=== PATIENT | male | born 1940 | race Caucasian/White ===

== ENCOUNTER 2022-01-07 15:39 | Emergency (ER) | payer OTHER, MEDICARE, SELFPAY ==
--- NOTE | ~2022-01-07 | XR_ITS ---
EXAMINATION: XR FOOT, LEFT CLINICAL INFORMATION: Infection. Injury. COMPARISON: None TECHNIQUE: AP, lateral, and oblique views of the left foot. FINDINGS: No fracture. No dislocation. No focal bone lesion or abnormal periosteal reaction. No radiographic evidence for osteomyelitis. 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 Mild degenerative change of the first metatarsal phalangeal joint mild spur of the metatarsal head and the adjacent plantar ossicles. Small posterior calcaneal spur at the insertion of Achilles tendon. Soft tissue calcifications in the foot suggesting patient's diabetic. XR/XR foot LT min 3V IMPRESSION: 1. No acute abnormality. 2. No radiographic evidence for osteomyelitis.
[2022-01-07 16:34] VITALS: BP 156/69; PULSE 67; RESP 17; TEMP 36.7; O2SAT 98; BMI 30.7
--- NOTE | 2022-01-07 17:54 | ED_ITS ---
HPI - Extremity Problem General Chief complaint: Extremity Problem Stated complaint: infected toe Time Seen by Provider: 01/07/22 17:38 Source: patient Mode of arrival: ambulatory Limitations: no limitations History of Present Illness HPI Narrative: 82 yold male with pmh of Diabetes presents to the ED for left big toe redness after trauma. patient states 3 days ago he banged his big toe on an object in his house. patient states there was slight bleeding from under the nail. Patient than states since than redness of left toe and warmth. will story. patient states his glucose has been under control. Patient denies any other physical complaints. Related Data Previous Rx's Medication Instructions Recorded cephalexin 500 mg capsule 500 mg PO QID 7 Days #28 cap 01/07/22 doxycycline hyclate 100 mg tablet 100 mg PO BID 7 Days #14 tab 01/07/22 Allergies Allergy/AdvReac Type Severity Reaction Status Date / Time No Known Drug Allergies Allergy Unknown NONE Verified 01/07/22 17:29 Review of Systems Review of Systems: left big toe redness. Yes all other systems are reviewed and are negative [facility] Social History Social History Advance Directives: No Advance Directives Information Provided: No Physical Exam Vital Signs: Vital Signs: Last Vital Signs Temp 98.1 F 01/07/22 16:34 Pulse 67 01/07/22 16:34 Resp 17 01/07/22 16:34 BP 156/69 H 01/07/22 16:34 Pulse Ox 98 01/07/22 16:34 BMI result Body Mass Index 30.7 Const: General: cooperative, healthy appearing, comfortable, no acute distress, well developed, alert, awake and Physically active Or ientation/consciousness: oriented to time and patient oriented x3 HEENT: Head: Yes normal to inspection, Yes No palpable skull fracture present, Yes normocephalic, Yes atraumatic and No abrasion Eyes: General: appearance normal, both eyes and all related structures Neck: Neck: Yes normal visual inspection, Yes full ROM, Yes no lymphadenopathy, Yes no meningeal signs, Yes trachea midline, Yes supple, No anterior neck swelling and No tender Chest: Chest palpation & inspection: normal inspection of the chest and normal palpation of entire chest wall Resp: Effort & Inspection: normal respiratory effort and able to speak in complete sentences Cardio: Jugular venous distension: no JVD Heart sounds: S1 normal heart sound present and S2 normal heart sound present GI: Inspection: Yes normal to inspection and No abdominal wall ecchymosis Palpation (GI): Soft to palpation, not firm, nontender, no guarding and not rigid : General: No CVA tenderness and Yes no CVA tenderness Back/Spine/Pelvis: Back: no CVA tenderness, No CVA tenderness and No back tenderness Skin: General skin exam: no rashes or lesions noted and elasticity normal Neuro: General: oriented to time, patient oriented x3, gait normal, no meningeal signs and CN's II-XI intact bilaterally Cranial nerves: Yes CN's II-XII intact bilaterally Extrem: General: Yes normal to inspection and Yes full ROM Ankle/foot/toe images: 1. Positive for redness and warmth. negative for any pus discharge, foul odor, or open wonud. 2. dried up blood. no active bleeding. Pedal pulses intact. motor, neuro, and vascular exam of left lower extremity intact. Rest of foot and left lower extremity is normal Psych: Appearance: grossly normal, well kempt and not disheveled Course Course Course Narrative: Patient sent for foor xray. Reevaluation(s) Reevaluation #1: Xray negative for osteomyleitis. Vital signs are stable. Will not remove nail due to patient's history of Diabetes. This can cause more harm. No signs of nail bed injury on physical exam. 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 Time: 18:07 MDM - Extremity (Nontraumatic) MDM Narrative Medical decision making narrative: cellulitis toe Discharge Plan Discharge Clinical Impression: Cellulitis Patient Disposition: Home, Self-Care Instructions: Cellulitis (ED) Additional Instructions: You will need antibiotics for toe infection. Return to the ED immeidatley for worsening redness, pus discharge, foul odor, fever, red streaks, foot swelling, leg swelling, calf pain, chils, new foot wounds or any other concerning symptoms. Please follow up [facility] PCP and Case Advocate. Prescriptions: New cephalexin 500 mg capsule 500 mg PO QID 7 Days Qty: 28 0RF doxycycline hyclate 100 mg tablet 100 mg PO BID 7 Days Qty: 14 0RF Interventions: ED Discharge Assessment Last Done: 01/07/22 18:27 Discharge Date/Time: 01/07/22 18:29 Print Language: Greenlandic
== END 2022-01-07 18:29 | disposition home or self-care (01) ==
PROVIDERS: Emergency Provider Internal Medicine
DX: L03.032 Cellulitis of left toe (principal); M79.675 Pain in left toe(s); E11.9 Type 2 diabetes mellitus without complications
CPT/HCPCS: 73630; 99283

== ENCOUNTER 2024-07-02 14:12 | Emergency (ER) | payer OTHER, SELFPAY ==
--- NOTE | ~2024-07-02 | XR_ITS ---
EXAMINATION: XR CHEST CLINICAL INFORMATION: Coughing COMPARISON: Chest x-ray August 07, 2013 TECHNIQUE: Frontal view of the chest was obtained. FINDINGS: Cardiac silhouette is normal in size. Patient is status post CABG. The lungs are well aerated. There is no lobar consolidation. No pleural effusion or pneumothorax. XR/XR chest 1V IMPRESSION: No acute pulmonary pathology. Electronically signed by: Matthew Samuels MD 07/02/2024 03:46 PM EDT
--- NOTE | 2024-07-02 14:17 | ECG_ITS ---
Test Reason : WEAKNESS Blood Pressure : / mmHG Vent. Rate : 063 BPM Atrial Rate : 063 BPM P-R Int : 208 ms QRS Dur : 110 ms QT Int : 462 ms P-R-T Axes : 076 -37 050 degrees QTc Int : 472 ms Normal sinus rhythm Left axis deviation Septal infarct , age undetermined Abnormal ECG When compared with ECG of 07-AUG-2013 21:08, Vent. rate has decreased BY 33 BPM Septal infarct is now Present Referred By: Kade Camarillo Electronically Signed By:CRISTY ADAME
--- NOTE | 2024-07-02 14:25 | ED_ITS ---
HPI - SOB/Dyspnea General Chief Complaint: Dyspnea Stated Complaint: FLU SX,WEAK,COUGH,CHILLS,DIARRHEA,LIZ UE/LE SWELL Time Seen by Provider: 07/02/24 14:17 Source: patient and EMS Mode of arrival: EMS Limitations: no limitations History of Present Illness ED Provider: DR. Camarillo HPI Narrative: 84-year-old male brought in by ambulance for SOB, difficulty breathing for 4-5 days, constant coughing with no sputum can not sleep at night because of the coughing, generalized body ache, no fever, no chills, no old records available in our hospital patient confirm diabetes as the only past medical history. Patient was chronic bilateral lower extremity swelling was seen 1 time for cellulitis. Related Data Previous Rx's ?Medication ?Instructions ?Recorded cephalexin 500 mg capsule 500 mg PO QID 7 days #28 caps 01/07/22 doxycycline hyclate 100 mg tablet 100 mg PO BID 7 days #14 tabs 01/07/22 albuterol sulfate 90 mcg/actuation 2 puff inhalation Q6H PRN 07/02/24 aerosol inhaler shortness of breath or wheezing #8.5 grams doxycycline hyclate 100 mg tablet 100 mg PO BID #14 tabs 07/02/24 guaifenesin 200 mg/5 mL oral liquid 200 mg (5 mL) PO Q4H PRN cough 07/02/24 #118 mL prednisone 20 mg tablet 20 mg PO BID #10 tabs 07/02/24 Allergies Allergy/AdvReac Type Severity Reaction Status Date / Time No Known Drug Allergies Allergy Unknown NONE Verified 07/02/24 14:36 Review of Systems 2 Review of Systems: all other systems are reviewed and are negative Constitutional: Reports as per HPI and Reports no additional constitutional complaints Eyes: Reports as per HPI and Reports no additional eye complaints Reports system reviewed and no additional complaints, except as documented Cardiovascular: Reports as per HPI and Reports no additional cardiovascular complaints Respiratory: Reports as per HPI and Reports no additional respiratory complaints Gastrointestinal: Reports as per HPI and Reports no additional gastrointestinal complaints Genitourinary: Reports no additional female genitourinary complaints Musculoskeletal: Reports no additional musculoskeletal complaints Skin/Breast: Reports system reviewed and no additional complaints, except as docu Psychiatric: Reports no additional psychiatric complaints Endocrine: Reports no additional endocrine complaints Hematologic/Lymphatic: Reports no additional hematologic/lymphatic complaints Allergic/Immunologic: Reports no additional allergic/immunologic complaints Reports system reviewed and no additional complaints, except as documented and Reports Abnormal speech present [facility] Social History Social History Smoked in Last 30 Days: No Use of substances other than those prescribed or required for medical reasons: No Advance Directives: No Advance Directives Information Provided: Yes Physical Exam 2 Vital Signs: Vital Signs: Last Vital Signs Temp 98.6 F 07/02/24 16:03 Pulse 60 07/02/24 16:03 Resp 18 07/02/24 16:03 BP 129/64 07/02/24 16:03 Pulse Ox 97 07/02/24 16:03 O2 Del Method Room Air 07/02/24 16:03 BMI result Body Mass Index 35.8 Vital signs have been reviewed and appear to be correct. Blood pressure elevated. Heart rate normal. Respiratory rate normal. Temperature normal. Oxygen saturation normal. Appearance: Alert. Oriented X3. No acute distress. Head: Normal external exam. Normocephalic. Atraumatic. No Ahn signs noted. No raccoon eyes noted Eyes: PERRLA. EOMI. Conjunctiva and sclera normal. Eyelids normal. ENT: TM's Normal. Pharynx normal. Uvula midline. Moist mucous membranes. No trismus noted. No drooling noted. No muffled voice noted. Neck: Normal inspection. Neck supple. FROM. No adenopathy. Thyroid Normal. No meningeal signs. No neck mass noted. CVS: Normal heart rate and rhythm. Heart sound normal. No murmurs noted. Pulses normal throughout. Respiratory: No respiratory distress. Painless inspiration. Breath sounds normal. bilateral diffuse expiratory wheezing with prolonged expiration.Chest nontender. No accessory muscle usage noted or decreased air movement noted. Abdomen: Soft and nontender. Bowel sounds normal in all 4 quadrants. No distention noted. No organomegaly noted. No visible injury noted. Back: No CVA tenderness. Full range of motion noted. Skin: Skin warm and dry. Normal skin color. Normal skin turgor. No rashes/lesions/lacerations noted. Extremities: No lower extremity edema. Extremities exhibit normal range of motion. Extremities nontender. Neuro: Oriented X 3. Cranial nerve exam: II-XII are grossly intact No motor deficit. No sensory deficit. Reflexes normal. Course Reevaluation(s) Reevaluation #1: patient feels better vital signs stable, unremarkable workup today, symptoms is indicating acute bronchitis will discharge the patient on doxycycline, prednisone, albuterol and coughing medication. Time: 18:41 Medications Administered Generic Name Dose Route Start Last Admin Trade Name Freq PRN Reason Stop Dose Admin Guaifenesin/Codeine Phosphate 10 ml 07/02/24 14:23 07/02/24 14:54 Guaifen/Codeine Sf 200/20/10ml 10 Ml Liquid PO 10 ml Q4H PRN Administration Cough Discontinued Medications Generic Name Dose Route Start Last Admin Trade Name Freq PRN Reason Stop Dose Admin Albuterol/Ipratropium 3 ml 07/02/24 14:40 07/02/24 14:41 Albuterol/Iprat 2.5/0.5mg 3 Ml Ampul.Neb INHALE 07/02/24 14:41 3 ml ONCE ONE Administration Sodium Chloride 1,000 mls @ 999 mls/hr 07/02/24 14:17 07/02/24 16:58 Ns IV 07/02/24 15:17 Infused .Q1H1M ONE Infusion Ceftriaxone Sodium 1 gm/ 50 mls @ 100 mls/hr 07/02/24 14:24 07/02/24 15:22 Sodium Chloride IV 07/02/24 14:53 Infused ONCE ONE Infusion Sodium Chloride 1,000 mls @ 250 mls/hr 07/02/24 14:24 07/02/24 14:53 Ns IV 07/02/24 18:23 Not Given .Q4H ONE Methylprednisolone Sodium Succinate 125 mg 07/02/24 14:23 07/02/24 14:49 Methylprednisolone Sod Succ 125 Mg/2 Ml Vial IVPUSH 07/02/24 14:24 125 mg ONCE ONE Administration Medical Decision Making Differential Diagnosis Differential Diagnoses: The differential diagnosis associated with the presentation includes ( Pneumonia, pneumothorax, pleural effusion, electrolyte derangement, CHF, ACS, severe anemia, bronchitis, upper respiratory viral infection.) Admission/Observation Consideration of admission/observation: Escalation of care including admission/observation considered Lab Data MDM Lab Attestation statement: I reviewed the patient's lab results. 07/02/24 14:46 07/02/24 15:25 Labs: Lab Results 07/02/24 07/02/24 07/02/24 Range/Units 14:46 14:51 15:25 WBC 10.7 (4.8-10.8) X10*3/uL RBC 5.23 (4.60-5.80) X10*6/uL Hgb 13.9 L (14.0-18.0) g/dl Hct 42.2 (42.0-52.0) % MCV 80.7 (80.0-98.0) fL MCH 26.6 L (27.0-33.0) pg MCHC 32.9 (31.0-36.0) g/dl RDW 14.1 (11.0-16.0) % Plt Count 231 (160-400) X10*3/uL MPV 10.1 (9.4-12.4) fL Immature Gran % (Auto) 0.2 (0.0-0.4) % Neut % (Auto) 71.0 (45-73) % Lymph % (Auto) 15.4 L (20-40) % [place] % (Auto) 8.1 (2-11) % Eos % (Auto) 4.6 H (0-4) % Baso % (Auto) 0.7 (0-2) % Lymph # (Auto) 1.7 (1.2-4.9) X10*3/uL [place] # (Auto) 0.9 (0.1-1.2) X10*3/uL Eos # (Auto) 0.5 H (0.0-0.4) X10*3/uL Baso # (Auto) 0.1 (0.0-0.2) X10*3/uL Abs Immat Gran (auto) 0.02 (0.00-0.03) X10*3/uL Absolute Neuts (auto) 7.6 (2.0-8.3) x10*3/uL Absolute Nucleated RBC 0.000 (0.0-0.012) X10*3/uL Nucleated RBC % (auto) 0.0 (0.0-0.2) /100WBC Sodium 140 (135-145) mmol/L Potassium 4.4 (3.3-5.1) mmol/L Chloride 106 (96-108) mmol/L Carbon Dioxide 23 (22-29) mmol/L Anion Gap 15 (12-20) BUN 26 H (9-16) mg/dL Creatinine 1.53 H (0.5-1.4) mg/dL Estim Creat Clear Calc 44.7 Estimated GFR 44 Random Glucose 139 H (60-115) mg/dL Lactic Acid 0.7 (0.5-2.0) mmol/L Calcium 9.0 (8.4-10.2) mg/dL Total Bilirubin 0.5 (0.0-1.0) mg/dL Direct Bilirubin 0.2 (0.0-0.5) mg/dL AST 20 (5-37) U/L ALT 25 (0-40) U/L Alkaline Phosphatase 87 (39-117) U/L Troponin I High Sens 14.1 (<3.5-35.0) ng/L B-Natriuretic Peptide 395 H (<100) pg/mL Total Protein 7.0 (6.5-8.0) g/dL Albumin 3.9 (3.5-5.0) g/dL Lipase 7 L (8-78) U/L Urine Color Yellow Urine Appearance Clear Urine pH 7.0 (5.0-9.0) Ur Specific [place] 1.010 (1.005-1.025) Urine Protein Trace (Neg-Trace) mg/dL Urine Glucose (UA) Negative (Negative) mg/dL Urine Ketones Negative (Negative) mg/dL Urine Blood Negative (Negative) Urine Nitrite Negative (Negative) Ur Leukocyte Esterase Negative (Negative) Influenza Type A (PCR) NEGATIVE (Negative) Influenza Type B (PCR) NEGATIVE (Negative) RSV RNA Qual (PCR) NEGATIVE (Negative) SARS-CoV-2 RNA (RT-PCR) NEGATIVE (Negative) Independent Interpretation I performed an independent interpretation of an: Plain X-Ray ( Chest:no acute pulmonary disease) Radiology Impression Discussion of test interpretation with radiology: I have reviewed the radiologist's reading. Discharge Plan Discharge Clinical Impression: Bronchitis Patient Disposition: Home, Self-Care Instructions: Acute Bronchitis (ED) Additional Instructions: follow-up with your PCP in 2-3 days. Prescriptions: New doxycycline hyclate 100 mg tablet 100 mg PO BID Qty: 14 0RF albuterol sulfate 90 mcg/actuation HFA aerosol inhaler 2 puff inhalation Q6H PRN (Reason: shortness of breath or wheezing) Qty: 8.5 0RF prednisone 20 mg tablet 20 mg PO BID Qty: 10 0RF guaifenesin 200 mg/5 mL liquid 200 mg PO Q4H PRN (Reason: cough) Qty: 118 0RF No Action cephalexin 500 mg capsule 500 mg PO QID 7 Days Qty: 28 0RF doxycycline hyclate 100 mg tablet 100 mg PO BID 7 Days Qty: 14 0RF Print Language: Kuwaiti
[2024-07-02 14:32] VITALS: BP 147/64; BP 160/85; PULSE 63; PULSE 66; RESP 24; TEMP 36.9; O2SAT 96; BMI 35.8
[2024-07-02 14:39] VITALS: PULSE 86; RESP 18; O2SAT 95
[2024-07-02] MEDS: Albuterol/Iprat 2.5/0.5MG 3 ML AMPUL.NEB INHALE (14:41)
[2024-07-02] MEDS: cefTRIAXone sodium 1 GM in 0.9 % Sodium Chloride 50 ML IV (14:49)
[2024-07-02] MEDS: methylPREDNISolone Sod Succ 125 MG/2 ML VIAL IVPUSH (14:49)
[2024-07-02] MEDS: 0.9 % Sodium Chloride 1,000 ML 999 ML IV (14:52)
[2024-07-02] MEDS: guaiFEN/Codeine SF 200/20/10ML 10 ML LIQUID PO (14:54)
[2024-07-02 14:55] LABS: MANUAL DIFF FLAG NO
[2024-07-02 14:56] LABS: Basophils Absolute Auto 0.1 X10*3/uL (0.0-0.2); Basophils Percent Auto 0.7 % (0-2); Eosinophils Absolute Auto 0.5 X10*3/uL (0.0-0.4); Eosinophils Percent Auto 4.6 % (0-4); Hematocrit 42.2 % (42.0-52.0); Hemoglobin 13.9 g/dl (14.0-18.0); Imm Gran Abs Auto 0.02 X10*3/uL (0.00-0.03); Imm Gran Pct Auto 0.2 % (0.0-0.4); Lymphocytes Absolute Auto 1.7 X10*3/uL (1.2-4.9); Lymphocytes Percent Auto 15.4 % (20-40); Mean Corpuscular HGB Conc 32.9 g/dl (31.0-36.0); Mean Corpuscular Hemoglobin 26.6 pg (27.0-33.0); Mean Corpuscular Volume 80.7 fL (80.0-98.0); Mean Platelet Volume 10.1 fL (9.4-12.4); Monocytes Absolute Auto 0.9 X10*3/uL (0.1-1.2); Monocytes Percent Auto 8.1 % (2-11); Neutrophils Absolute Auto 7.6 x10*3/uL (2.0-8.3); Platelet Count 231 X10*3/uL (160-400); Red Blood Count 5.23 X10*6/uL (4.60-5.80); Red Cell Distribution Width 14.1 % (11.0-16.0); White Blood Count 10.7 X10*3/uL (4.8-10.8)
--- NOTE | 2024-07-02 14:56 | PC.NURSE ---
pt aox4. coming to ED from home after visiting nurse came and found him unwell, short of breath, weak with flu like symptoms which he reports have been going on for 3 days. Pt has bilateral wounds on his lower legs. Dressing removed by this RN for assessment. Pt tachypnic upon arrival, wheezing, with persistent wet sounding cough that is difficult for the pt to suppress. PRN cough medicine given per NOV. RT on scene to give breathing treatment. Pt RA spO2 has been good 96+% His hands are swollen. +3 pitting edema in feet and lower legs. Pt has hx diabetes. IV inserted (20g left AC) labs and blood cultures drawn. Fluds and ABX started.
[2024-07-02 15:03] LABS: Appearance Urine Clear; Color Urine Yellow; Glucose Urine UA Negative (Negative); Leukocyte Esterase Urine Negative (Negative); Nitrite Urine Negative (Negative); Urine Blood Negative (Negative); Urine Ketones Negative (Negative); Urine Protein Trace mg/dL (Neg-Trace)
[2024-07-02 15:07] LABS: Lactic Acid 0.7 mmol/L (0.5-2.0)
[2024-07-02 15:11] VITALS: RESP 24
[2024-07-02 15:17] LABS: B Type Natriuretic Peptide 395 pg/mL (<100)
[2024-07-02 15:50] LABS: Troponin-I High Sensitivity 14.1 ng/L (<3.5-35.0)
[2024-07-02 16:02] LABS: Alanine Aminotransferase 25 U/L (0-40); Albumin Level 3.9 g/dL (3.5-5.0); Alkaline Phosphatase 87 U/L (39-117); Anion Gap 15 (12-20); Aspartate Amino Transferase 20 U/L (5-37); Bilirubin Direct 0.2 mg/dL (0.0-0.5); Bilirubin Total 0.5 mg/dL (0.0-1.0); Blood Urea Nitrogen 26 mg/dL (9-16); Carbon Dioxide 23 mmol/L (22-29); Chloride 106 mmol/L (96-108); Creatinine Clr Calc Pharmacy 44.7; Estimated Glomerular Filt Rate 44; Glucose Random 139 mg/dL (60-115); Lipase 7 U/L (8-78); Potassium 4.4 mmol/L (3.3-5.1); Sodium 140 mmol/L (135-145)
--- NOTE | 2024-07-02 16:02 | PC.NURSE ---
pt sleeping, cough under control.
[2024-07-02 16:03] VITALS: BP 129/64; PULSE 60; RESP 18; TEMP 37; O2SAT 97
[2024-07-02 16:04] LABS: Influenza A PCR NEGATIVE (Negative); Influenza B PCR NEGATIVE (Negative); Resp Syncy Virus RNA Qual PCR NEGATIVE (Negative); SARS COV2 PCR INHOUSE NEGATIVE (Negative)
[2024-07-02 18:48] VITALS: BP 142/67; PULSE 72; RESP 22; TEMP 36.8; O2SAT 91
[2024-07-02 19:34] VITALS: BP 142/67; PULSE 72; RESP 22; TEMP 36.8; O2SAT 91
== END 2024-07-02 19:47 | disposition home or self-care (01) ==
PROVIDERS: Emergency Provider Emergency Medicine
DX: J20.9 Acute bronchitis, unspecified (principal); Z03.818 Encounter for observation for suspected exposure to other biological agents ruled out; R05.9 Cough, unspecified; R06.02 Shortness of breath
CPT/HCPCS: 0241U; 36415; 71045; 80048; 80076; 81003; 83605; 83690; 83880; 84484; 85025; 87040; 93005; 94640; 96361; 96365; 96375; 99284; 99285; J0696; J2919

== ENCOUNTER 2024-07-04 00:46 | Inpatient (IN) | payer OTHER, SELFPAY ==
[2024-07-04] VITALS (11 sets, daily range): BP systolic 112–176; BP diastolic 41–84; PULSE 68–93; RESP 18–30; TEMP 36.9–37.4; O2SAT 92–99; BMI 33.7
--- NOTE | ~2024-07-04 | XR_ITS ---
EXAMINATION: XR CHEST CLINICAL INFORMATION: Congestive heart failure? COMPARISON: Chest radiograph 07/02/2024. TECHNIQUE: Frontal view of the chest was obtained. FINDINGS: Multiple and fractured median sternotomy wires. Moderate aortic calcific atherosclerosis. Normal heart size. No effusions or pneumothoraces. Normal pattern of pulmonary vasculature. No focal pulmonary consolidation. XR/XR chest 1V IMPRESSION: *No acute cardiopulmonary abnormalities. No evidence of active pulmonary edema or pneumonia. Electronically signed by: Jasbir Gray MD 07/04/2024 02:53 AM EDT
--- NOTE | 2024-07-04 00:57 | ED_ITS ---
HPI - SOB/Dyspnea General Chief Complaint: Dyspnea Stated Complaint: SOB Time Seen by Provider: 07/04/24 00:56 Source: patient Mode of arrival: EMS Limitations: no limitations History of Present Illness ED Provider: morris LEDEZMA Narrative: Patient's history of coronary artery disease status post CABG in 2019 no known history of lung disease no history of asthma been coughing for last few days getting worse in last 2 days with increased shortness of breath came here earlier today and discharged home on inhaler which she has never used in the past unable to get the prescription filled comes here as started feeling short of breath again with wheezing prior to arrival coughing a lot mostly dry no fever no chills Related Data Previous Rx's ?Medication ?Instructions ?Recorded cephalexin 500 mg capsule 500 mg PO QID 7 days #28 caps 01/07/22 doxycycline hyclate 100 mg tablet 100 mg PO BID 7 days #14 tabs 01/07/22 albuterol sulfate 90 mcg/actuation 2 puff inhalation Q6H PRN 07/02/24 aerosol inhaler shortness of breath or wheezing #8.5 grams doxycycline hyclate 100 mg tablet 100 mg PO BID #14 tabs 07/02/24 guaifenesin 200 mg/5 mL oral liquid 200 mg (5 mL) PO Q4H PRN cough 07/02/24 #118 mL prednisone 20 mg tablet 20 mg PO BID #10 tabs 07/02/24 Allergies Allergy/AdvReac Type Severity Reaction Status Date / Time No Known Drug Allergies Allergy Unknown NONE Verified 07/04/24 00:58 Review of Systems Review of Systems: Yes all other systems are reviewed and are negative PMFSH Past Medical History Medical History Coronary artery disease Surgical History Hx of CABG Social History Social History Advance Directives: No Advance Directives Information Provided: Yes Do you have a plan to hurt others: No Plan Physical Exam Vital Signs: Vital Signs: Last Vital Signs Pulse 68 07/04/24 01:08 Resp 26 H 07/04/24 01:08 BP 143/71 H 07/04/24 01:52 Pulse Ox 99 07/04/24 00:55 O2 Del Method Nasal Cannula 07/04/24 00:55 Oxygen Flow Rate 4 07/04/24 00:55 BMI result Body Mass Index 33.7 Appearance: Alert. Oriented X3. No acute distress. Eyes: No pallor or icterus ENT: Pharynx normal. Oral Mucosa moist Neck: Normal inspection. Neck supple. CVS: Normal heart rate and rhythm. Pulses normal. Respiratory: moderate respiratory distress. Equal air entry bilateral, bilateral prolonged expiration with wheezing few rales at the bases Abdomen: Soft and nontender. Bowel sounds are present, no mass palpable, no CVA tenderness Skin: Skin warm and dry. Normal skin color. Normal skin turgor. Extremities: 2+ lower extremity edema. No calf tenderness Neuro: Oriented X 3. No motor deficit. No sensory deficit.No cerebellar signs , cranial nerves II-XII intact Medications Administered Discontinued Medications Generic Name Dose Route Start Last Admin Trade Name Freq PRN Reason Stop Dose Admin Albuterol Sulfate 5 mg/ 0 mg 07/04/24 00:57 07/04/24 01:05 Albuterol/Ipratropium 3 ml INHALE 07/04/24 00:58 1 each ONCE ONE Administration Furosemide 20 mg 07/04/24 01:28 07/04/24 01:52 Furosemide 20 Mg/2 Ml Vial IVPUSH 07/04/24 01:29 20 mg ONCE ONE Administration Protocol Medical Decision Making Medical Decision Making [facility] Narrative: Patient with bronchitis/CHF seen here earlier went home came back again as feeling more short of breath unable to sleep patient does have pedal edema slightly elevated BNP and serum creatinine likely patient has congestive heart failure will start patient on Lasix Patient's chest x-ray showed prominent bronchovascular markings? CHF will admit Differential Diagnosis Differential Diagnoses: The differential diagnosis associated with the presentation includes Bronchitis/pneumonia/CHF Admission/Observation Consideration of admission/observation: Escalation of care including admission/observation considered Consult Healthcare Provider Management of the patient was discussed with: Hospitalist Lab Data [facility] Lab Attestation statement: I reviewed the patient's lab results. Labs: Lab Results 07/04/24 Range/Units 01:50 PT 11.3 (10.9-12.4) SEC INR 1.0 (0.9-1.1) APTT 29.7 (26.0-36.8) SEC Independent Interpretation I performed an independent interpretation of an: EKG Interpretation: Sinus rhythm with first-degree heart block heart rate 72 beats per minute left axis deviation poor progression of R-wave no acute STT wave changes, no acute ischemia Discharge Plan Discharge Clinical Impression: Congestive heart failure, Acute bronchitis Patient Disposition: Admitted As Inpatient Print Language: Bots[place]an
[2024-07-04] MEDS: Albuterol Sulfate 5 MG, Albuterol/Iprat 2.5/0.5MG 3 ML 3 ML INHALE (01:05)
--- NOTE | 2024-07-04 01:30 | ECG_ITS ---
Test Reason : chf Blood Pressure : / mmHG Vent. Rate : 072 BPM Atrial Rate : 072 BPM P-R Int : 214 ms QRS Dur : 106 ms QT Int : 430 ms P-R-T Axes : -11 -39 080 degrees QTc Int : 470 ms Sinus rhythm with 1st degree A-V block Left axis deviation Anteroseptal infarct (cited on or before 02-JUL-2024) Abnormal ECG When compared with ECG of 02-JUL-2024 14:52, Questionable change in initial forces of Anterior leads Referred By: Jaime Gunn Electronically Signed By:CRISTY ADAME
[2024-07-04] MEDS: Furosemide 20 MG/2 ML VIAL IVPUSH (01:52)
[2024-07-04 02:04] LABS: Prothrombin Time 11.3 SEC (10.9-12.4)
[2024-07-04 02:07] LABS: Partial Thromboplastin Time 29.7 SEC (26.0-36.8)
[2024-07-04 02:17] LABS: B Type Natriuretic Peptide 689 pg/mL (<100)
[2024-07-04 02:18] LABS: Troponin-I High Sensitivity 18.2 ng/L (<3.5-35.0)
--- NOTE | 2024-07-04 04:26 | P.HPHOSP_ITS ---
History of Present Illness Date of Service: 07/04/24 Attending physician on admission: Sage Marcos Chief Complaint: Shorntess of breath Phil Ledbetter is 84 years old man with past medical history significant for type 2 diabetes mellitus and CAD status post CABG in 2019 presents to the emergency department via EMS due shortness of breaths has been worsening over the last couple of days. HPI was challenging to obtain as the patient is a very vague historian and very hard of hearing. He reported cough and denies chest pain. There is no fevers chills reported. He stated that he had wounds to his lower extremities due to diabetes. Did not report any acute gastrointestinal symptoms. Denies tobacco smoking and do not use home oxygen. Seems like the patient was seen in the emergency department earlier and was discharged home on inhaler but he was unable to fill the prescriptions. In the ED, he was found to have tachypnea. He was placed on 4 L/min supplemental oxygen via nasal cannula by EMS and was given a breathing treatment. There is no fever. There is no leukocytosis. Creatinine is 1.83. BNP is elevated, 689. There are no electrolyte imbalances. Viral testing for COVID-19, influenza and RSV is negative. CXR showed no acute cardiopulmonary abnormalities, pulmonary edema or pneumonia. ED tx: Lasix 20 mg IV. DuoNeb. Review of Systems Review of Systems: Yes Other (limited, pt poor historian) COUNTS INCLUDE 234 BEDS AT THE [facility] Medical History (Updated 07/04/24 @ 04:44 by Sage Marcos MD) Type 2 diabetes mellitus Coronary artery disease Surgical History Hx of CABG Social History Advance Directives: No Advance Directives Information Provided: Yes Do you have a plan to hurt others: No Plan Meds Allergies Allergy/AdvReac Type Severity Reaction Status Date / Time No Known Drug Allergies Allergy Unknown NONE Verified 07/04/24 00:58 Active Medications: Current Medications Acetaminophen (Acetaminophen 325 Mg Tablet) 975 mg PO Q6H PRN PRN Reason: Pain, Mild (Pain Scale 1-3), fever or headache Heparin Sodium (Porcine) (Heparin Sodium,Porcine 5,000 Unit/Ml Vial) 5,000 unit SUBCUT Q12H [place] Sodium Chloride (0.9 % Sodium Chloride Flush 3 Ml Syringe) 3 ml IVFLUSH QSHIFT [place] Physical Exam Vital Signs and Narrative: Vital Signs: Last Vital Signs Pulse 68 07/04/24 01:08 Resp 26 H 07/04/24 01:08 BP 143/71 H 07/04/24 01:52 Pulse Ox 99 07/04/24 00:55 O2 Del Method Nasal Cannula 07/04/24 00:55 Oxygen Flow Rate 4 07/04/24 00:55 BMI result Body Mass Index 33.7 Constitutional - Awake and Alert, No apparent distress. Pleasant. Cooperative. On nasal cannula. HEENT - PERRL, EOMI Heart - S1S2, RRR, No murmur. Lungs - Normal lung expansion, Normal respiratory effort, No respiratory distress. Tachypnea. Bilateral rhonchi. No wheezing. No crackles. Abdomen - NT / ND; +BS; No rebound or guarding Extremities - Bilateral lower extremity edema and chronic wounds. Musculoskeletal - Normal inspection, normal ROM Skin - Warm/Dry Neurological - Alert & oriented x3. No focal weakness grossly noted. Normal speech. Psychological - Appropriate affect Results Labs Labs: Laboratory Results - last 24 hr 07/04/24 01:50 PT 11.3 INR 1.0 APTT 29.7 Troponin I High Sens 18.2 B-Natriuretic Peptide 689 H Imaging Radiologist's Impressions: Impressions Chest X-Ray 07/04/24 01:42 IMPRESSION: *No acute cardiopulmonary abnormalities. No evidence of active pulmonary edema or pneumonia. Electronically signed by: Jasbir Gray MD 07/04/2024 02:53 AM EDT Assessment and Plan (1) Acute bronchitis: Qualifiers: Bronchitis organism: unspecified organism Qualified Code(s): J20.9 - Acute bronchitis, unspecified Status: Acute (2) Hypoxic respiratory failure: Qualifiers: Chronicity: acute Qualified Code(s): J96.01 - Acute respiratory failure with hypoxia Status: Acute Plan Phil Ledbetter is 84 y/o admitted with: * Hypoxic respiratory failure, suspecting acute bronchitis/upper respiratory tract infection. BNP elevated but negative CXR and lungs auscultation revealing no crackles. Admit to hospitalist service. Telemetry. Continue supplemental O2 to keep O2 sats > 90%. Continue bronchodilator therapy. Empiric IV antibiotic therapy with azithromycin. Check respiratory panel. Check echocardiogram. * Elevated creatinine, unclear if pt has underlying kindney disease. Continue to monitor. Avoid nephrotoxic agents. * Type 2 diabetes mellitus. Blood glucose checks before meals at bedtime. Insulin sliding scale. Diabetic diet. * History of CAD. S/p CABG. Patient does not recall the name of his home medications or what conditions they are for. He was only able to say he has diabetic. I do not see much on his dispense history our system. DVT prophylaxis: Heparin subQ Code status: Full Patient will need hospitalization for at least 2 midnights for hypoxic respiratory failure secondary to acute bronchitis/upper respiratory tract infection with supplemental oxygen, bronchodilator therapy and IV antibiotic therapy. Quality Stroke Does the patient have a stroke diagnosis?: No VTE Prior VTE?: No VTE Risk Level:: Medical - moderate - high VTE Device Contraindication: Treatment Not Indicated VTE Drug Contraindication: N/A - Med Ordered
[2024-07-04] MEDS: guaiFENesin DM 200/20/10 ML 10 ML SYRUP PO ×2 (04:55→12:01)
[2024-07-04 05:11] LABS: Hematocrit 39.3 % (42.0-52.0); Hemoglobin 12.9 g/dl (14.0-18.0); Mean Corpuscular HGB Conc 32.8 g/dl (31.0-36.0); Mean Corpuscular Hemoglobin 26.6 pg (27.0-33.0); Mean Platelet Volume 9.9 fL (9.4-12.4); Platelet Count 227 X10*3/uL (160-400); Red Blood Count 4.85 X10*6/uL (4.60-5.80); Red Cell Distribution Width 14.2 % (11.0-16.0); White Blood Count 16.5 X10*3/uL (4.8-10.8)
[2024-07-04 05:28] LABS: Anion Gap 13 (12-20); Blood Urea Nitrogen 33 mg/dL (9-16); Calcium 9.2 mg/dL (8.4-10.2); Carbon Dioxide 23 mmol/L (22-29); Chloride 105 mmol/L (96-108); Estimated Glomerular Filt Rate 41; Glucose Random 213 mg/dL (60-115); Magnesium 2.2 mg/dL (1.6-2.6); Potassium 3.9 mmol/L (3.3-5.1); Sodium 137 mmol/L (135-145)
--- NOTE | 2024-07-04 07:00 | CA_ITS ---
Transthoracic Echocardiogram Patient (Last, First, Middle): Phil Ledbetter, Gender: Male Date of : 1940 Age: 84 Procedure Date: 07/04/2024 Procedure Type: Transthoracic Echocardiogram Location: ER Height: 180.34 cm Weight: 109.32 kg BSA: 2.28 m2 Heart Rate: 81 bpm BP: 150 / 81 mmHg Shuttle Veneering Supervisor: Referring MD: Sage Marcos MD Production Support Analyst: Dani Salinas MD Symptoms: SOB. elevated BNP Study Quality: Adequate w contrast ECG Rhythm: Sinus Conclusions: - 1. Low normal LV ejection fraction at 50-55% with mild-to moderate LVH with grade 2 diastolic dysfunction 2. At least mildly dilated left atrium 3. Mild aortic stenosis 4. Calcific mitral stenosis can not be entirely ruled out on this study 5. Mildly dilated ascending aorta Findings Procedure Information Contrast agent, definity, is being given per protocol without apparent complications. Left Ventricle Normal left ventricular cavity size. There is mildly increased left ventricular wall thickness. The left ventricular systolic function is low normal. The visually estimated ejection fraction is between 50-55%. Spectral Doppler is indicative of a pseudonormal filling pattern. E/E prime ratio is >15, consistent with elevated filling pressures. Evidence suggests grade II (moderate) diastolic dysfunction. Right Ventricle The right ventricle was not well visualized. Atria The left atrium is mildly dilated. Interatrial shunt cannot be excluded. The right atrium was not well visualized. Aortic Valve The aortic valve was not well visualized. There is mild calcification of the aortic valve. There is mild aortic valve stenosis. The peak aortic gradient is 16 mmHg.The mean gradient is 9 mmHg. The aortic valve area is 1.96 cm2. There is trace (trivial) aortic valve regurgitation. Mitral Valve The mitral valve was not well visualized. There is moderate anterior mitral leaflet thickening. There is severe mitral annular calcification. There is no mitral valve regurgitation. Pulmonic Valve The pulmonic valve was not well visualized. Tricuspid Valve The tricuspid valve was not well visualized. Tricuspid regurgitation envelope is inadequate for calculation of right ventricular systolic pressure. Great Vessels The aorta was not well visualized. The pulmonary artery was not well visualized. There is mild dilatation of the ascending aorta measuring 3.70 cm. Venous The inferior vena cava was not well visualized. Pericardium/Pleural The pericardium was not well visualized. Prior Study Comparison No prior study available for comparison. Measurements 2D Linear Measurements IVSd: 1.46 0.6-0.9/0.6-1.0 cm LVIDd: 4.91 3.9-5.3/4.2-5.9 cm LVIDd Index: 2.15 2.4-3.2/2.2-3.1 cm/m2 LVIDs: 3.86 2.0-3.6 cm LVPWd: 1.30 0.7-1.1 cm LA Diam: 5.00 2.7-3.8/3.0-4.0 cm LAIDs Index: 2.19 1.5-2.3 cm/m2 LV Mass: 346.16 67-162/88-224 g LV Mass Index: 151.82 43-95/49-115 g/m2 LVOT Diam: 2.30 3.0+(-)1.3 cm 2D Systolic Function EF 4C: 53.60 >55% EF 2C: 44.80 >55% EF BiP: 50.10 >55% Mitral Valve MV VTI: 0.77 MV Pk Marty: 2.36 MV Mn Marty: 1.48 MV Pk Grad: 22.00 MV Mn Grad: 11.00 MV Pk E: 2.50 MV PK A: 2.10 MV Decel Time: 301.00 E/A: 1.20 E'Lateral: 4.79 E'Medial: 5.00 E/E' Med: 50.00 E/E' Lat: 52.20 PHT: 88.00 MVA PHT: 2.50 MVA Continuity: 1.09 Decel Russell: 8.31 Aortic Valve AoV Pk Marty: 1.97 AoV Mn Marty: 1.44 AoV VTI: 0.43 AoV Pk Grad: 16.00 Aov Mn Grad: 9.00 JOEL Cont.VTI: 1.96 LVOT LVOT Pk Marty: 0.84 LVOT Mn Marty: 0.62 LVOT VTI: 0.20 LVOT Pk Grad: 3.00 LVOT Mn Grad: 2.00 LVOT Diam: 2.30 LVOT Area: 4.15 Diastolic Function MV Pk E: 2.50 MV Pk A: 2.10 E/A: 1.20 E'Medial: 5.00 E/E' Med: 50.00 E' Laterial: 4.79 E/E' Lat: 52.20 Right Ventricle TAPSE (mm): 20.70 TVS' Marty: 11.00 Tricuspid Valve TR Pk Marty: 3.38 TR Pk Grad: 46.00 Great Vessels Aorta Sinus of Valsalva: 3.40 2.0-3.5 cm Ao Asc: 3.70 2.1-3.4 cm Pulmonary Valve PV Pk Marty: 0.96 Peak PV Grad: 4.00 Updated in Other Vendor System with Status of Final Dani Salinas MD electronically signed on 07/04/2024 3:49:07 PM with status of Final
[2024-07-04 07:45] LABS: Glucose, Whole Blood 197 mg/dL (60-115)
[2024-07-04] MEDS: Heparin Sodium,Porcine 5,000 UNIT/ML VIAL 5000 UNIT SUBCUT ×2 (07:53→21:29)
[2024-07-04] MEDS: Albuterol/Iprat 2.5/0.5MG 3 ML AMPUL.NEB INHALE ×4 (07:53→20:11)
[2024-07-04] MEDS: Insulin Lispro 100 UNIT/ML 3 ML VIAL SUBCUT ×3 (07:54→21:29)
[2024-07-04] MEDS: Azithromycin 500 MG in 0.9 % Sodium Chloride 250 ML 125 MG IV (07:54)
[2024-07-04] MEDS: 0.9 % Sodium Chloride Flush 3 ML SYRINGE IVFLUSH ×2 (08:42→17:04)
--- NOTE | 2024-07-04 11:14 | P.EN_ITS ---
Event Note Date of Service: 07/04/24 Event Note: Phil Ledbetter is 84 y/o admitted with: Hypoxic respiratory failure, suspecting acute bronchitis/upper respiratory tract infection. BNP elevated but negative CXR and lungs auscultation revealing no crackles. neg flu, rsv and covid Continue supplemental O2 to keep O2 sats > 90%. Continue bronchodilator therapy. Empiric IV antibiotic therapy with azithromycin. Check respiratory panel. Check echocardiogram. Elevated creatinine, unclear if pt has underlying kindney disease. Continue to monitor. Avoid nephrotoxic agents. Type 2 diabetes mellitus. Blood glucose checks before meals at bedtime. Insulin sliding scale. Diabetic diet. History of CAD S/p CABG. Patient does not recall the name of his home medications or what conditions they are for. He was only able to say he has diabetic. I do not see much on his dispense history our system. DVT prophylaxis: Heparin subQ Code status: Protective Signal Superintendent Spent With Patient Time: Total time managing care of this patient today ____ minutes.
--- NOTE | 2024-07-04 12:18 | PHA.MEDREC ---
Pharmacy Consult ? Medication Reconciliation Pharmacy has completed the medication reconciliation. list obtained from hi used to complete med rec
--- NOTE | 2024-07-04 12:52 | MHC.CM.PN ---
Met with patient in regards to discharge planning. Patient is hard of hearing at baseline. Patient lives with his sig other, ambulates with a rollator and has [facility] for medication management. Patient does not remember the nursing agency name. [facility]'s PCP [facility] through the [facility]. Patient does not remember PCP's name. [facility] IMM explained and signed. Patient states he has never been to STR and does not feel it will be needed when medically stable. Physical therapy eval for home safety may be needed. Patient is currently on oxygen but does not use it at baseline. Spoke with Susi of [facility]. Susi confirms patient's PCP is Girma LYNCH. Patient is eligible for STR/LTC through the [facility]. Susi also confirms patient receives BSW care through [facility] in [place]. Not able to locate a VNA on file for patient. T/W attempted to speak to Heather [facility] transitions of respiratory care program director. Waiting for a call back to confirm VNA agency, PCP and to see if [facility]. Continue to monitor for d/c needs.
--- NOTE | 2024-07-04 13:01 | P.CDIM_ITS ---
PROVIDER RESPONSE TEXT: To clarify, the appropriate diagnosis supported by the clinical indicators: Acute hypoxic respiratory failure QUERY TEXT: PHYSICIAN'S DOCUMENTATION REQUEST Date of Query: 07/04/2024 12:12 PM EDT Patient Name: Phil Ledbetter Admit Date: 07/04/2024 Dear Ирина Aaron JUNIOR ARCHITECT, A review of the medical record indicates additional documentation may be needed. Please review below and update the documentation accordingly. Clinical Indicators: H&P and Event note Plan: Hypoxic respiratory failure Continue supplemental O2 and keep O2 sats > 90% If possible, please further clarify the acuity of the respiratory failure within the body of the writ ten Plan: Acute hypoxic respiratory failure Acute on chronic hypoxic respiratory failure Other (explain) Clinically unable to determine (explain) Thank you, Nancie Leonardo, CCS, CDIS Use of terms such as suspected, likely, concern for, or probable (associated with a specific diagnosi s that is being evaluated, monitored, or treated as if it exists) are acceptable and can be coded in the inpatient se tting, when documented at the time of discharge. Please use your independent medical judgment in providing your response. THIS QUERY IS PART OF THE PERMANENT MEDICAL RECORD
[2024-07-04 13:41] LABS: Glucose, Whole Blood 206 mg/dL (60-115)
[2024-07-04] MEDS: Acetaminophen 325 MG TABLET 975 MG PO (13:44)
[2024-07-04 16:14] LABS: Glucose, Whole Blood 123 mg/dL (60-115)
[2024-07-04 21:13] LABS: Glucose, Whole Blood 160 mg/dL (60-115)
[2024-07-04] MEDS: Albuterol Sulfate (0.083%) 2.5 MG/3 ML VIAL.NEB INHALE (23:53)
[2024-07-05] VITALS (11 sets, daily range): BP systolic 130–168; BP diastolic 63–81; PULSE 67–93; RESP 18–26; TEMP 36.8–37.3; O2SAT 89–98
[2024-07-05] MEDS: Acetaminophen 325 MG TABLET 975 MG PO (00:02)
[2024-07-05] MEDS: guaiFENesin DM 200/20/10 ML 10 ML SYRUP PO ×4 (00:02→22:49)
[2024-07-05] MEDS: 0.9 % Sodium Chloride Flush 3 ML SYRINGE IVFLUSH ×4 (00:18→22:13)
[2024-07-05 07:00] LABS: Glucose, Whole Blood 268 mg/dL (60-115)
[2024-07-05] MEDS: Albuterol/Iprat 2.5/0.5MG 3 ML AMPUL.NEB INHALE ×4 (07:19→18:41)
[2024-07-05] MEDS: Insulin Lispro 100 UNIT/ML 3 ML VIAL SUBCUT ×4 (08:26→22:13)
[2024-07-05] MEDS: Clopidogrel Bisulfate 75 MG TABLET PO (08:26)
[2024-07-05] MEDS: Losartan Potassium 50 MG TABLET 100 MG PO (08:27)
[2024-07-05] MEDS: Furosemide 40 MG TABLET PO (08:27)
[2024-07-05] MEDS: amLODIPine Besylate 10 MG TABLET PO (08:27)
[2024-07-05] MEDS: cloNIDine HCL 0.1 MG TABLET 0.3 MG PO ×2 (08:27→20:38)
[2024-07-05] MEDS: Gabapentin 100 MG CAPSULE PO ×2 (08:27→20:38)
[2024-07-05] MEDS: Amiodarone HCL 200 MG TABLET PO (08:27)
[2024-07-05] MEDS: Heparin Sodium,Porcine 5,000 UNIT/ML VIAL 5000 UNIT SUBCUT ×2 (08:28→20:38)
[2024-07-05] MEDS: Metoprolol Succinate ER 50 MG TAB.ER.24H PO (08:28)
[2024-07-05] MEDS: Cyanocobalamin (Vitamin B-12) 1,000 MCG TABLET 1000 MCG PO (08:28)
[2024-07-05 09:02] LABS: Adenovirus PCR Not Detected (Not Detect.); Bordetella parapertussis PCR Not Detected (Not Detect.); Bordetella pertussis PCR Not Detected (Not Detect.); Chlamydia pneumoniae PCR Not Detected (Not Detect.); Coronavirus 229E PCR Not Detected (Not Detect.); Coronavirus HKU1 PCR Not Detected (Not Detect.); Coronavirus NL63 PCR Not Detected (Not Detect.); Coronavirus OC43 PCR Not Detected (Not Detect.); Human metapneumovirus PCR Not Detected (Not Detect.); Influenza A PCR Not Detected (Not Detect.); Influenza B PCR Not Detected (Not Detect.); Mycoplasma pneumoniae PCR Not Detected (Not Detect.); Parainfluenza 1 PCR Not Detected (Not Detect.); Parainfluenza 2 PCR Not Detected (Not Detect.); Parainfluenza 3 PCR Not Detected (Not Detect.); Parainfluenza 4 PCR Not Detected (Not Detect.); RSV PCR Not Detected (Not Detect.); Rhino/Enterovirus PCR Detected (Not Detect.); SARS-CoV-2 PCR Not Detected (Not Detect.)
[2024-07-05] MEDS: Azithromycin 500 MG in 0.9 % Sodium Chloride 250 ML 125 MG IV (09:02)
--- NOTE | 2024-07-05 09:36 | HO.PM.IMPN ---
Subjective Subjective Date of Service: 07/05/24 Review of Systems Follow-up enterovirus/Coronavirus Feeling better Physical Exam Vital Signs: Vital Signs: Last Vital Signs Temp 99.2 F 07/05/24 07:28 Pulse 83 07/05/24 07:28 Resp 20 07/05/24 07:28 BP 168/81 H 07/05/24 07:28 Pulse Ox 98 07/05/24 07:28 O2 Del Method Nasal Cannula 07/05/24 07:28 O2 Flow Rate 4 07/05/24 07:28 Oxygen Flow Rate 4 07/04/24 00:55 BMI result Body Mass Index 33.7 Appearing in no acute distress lung sounds are clear to auscultation heart regular rate rhythm, clear S1, S2 positive bowel sounds, abdomen is soft, nontender neuro patient is alert x3, no focal deficits Objective Data Active Medications Acetaminophen (Acetaminophen 325 Mg Tablet) 975 mg PO Q6H PRN PRN Reason: Pain, Mild (Pain Scale 1-3), fever or headache Last Admin: 07/05/24 00:02 Dose: 975 mg Documented By: MARITZA Albuterol Sulfate (Albuterol Sulfate (0.083%) 2.5 Mg/3 Ml Vial.Neb) 2.5 mg INHALE Q2H PRN PRN Reason: Shortness of Breath/Wheezing Last Admin: 07/04/24 23:53 Dose: 2.5 mg Documented By: RENÉE Albuterol/Ipratropium (Albuterol/Iprat 2.5/0.5mg 3 Ml Ampul.Neb) 3 ml INHALE RQ4H WHILE AWAKE [facility] Last Admin: 07/05/24 07:19 Dose: 3 ml Documented By: SCARLETT Amiodarone HCl (Amiodarone Hcl 200 Mg Tablet) 200 mg PO DAILY [facility] Last Admin: 07/05/24 08:27 Dose: 200 mg Documented By: ELIZA Amlodipine Besylate (Amlodipine Besylate 10 Mg Tablet) 10 mg PO DAILY [facility]; Protocol Last Admin: 07/05/24 08:27 Dose: 10 mg Documented By: ELIZA Clonidine HCl (Clonidine Hcl 0.1 Mg Tablet) 0.3 mg PO BID [facility]; Protocol Last Admin: 07/05/24 08:27 Dose: 0.3 mg Documented By: ELIZA Clopidogrel Bisulfate (Clopidogrel Bisulfate 75 Mg Tablet) 75 mg PO DAILY [facility] Last Admin: 07/05/24 08:26 Dose: 75 mg Documented By: ELIZA Cyanocobalamin (Cyanocobalamin (Vitamin B-12) 1,000 Mcg Tablet) 1,000 mcg PO DAILY [facility] Last Admin: 07/05/24 08:28 Dose: 1,000 mcg Documented By: ELIZA Furosemide (Furosemide 40 Mg Tablet) 40 mg PO DAILY [facility]; Protocol Last Admin: 07/05/24 08:27 Dose: 40 mg Documented By: ELIZA Gabapentin (Gabapentin 100 Mg Capsule) 100 mg PO BID [facility] Last Admin: 07/05/24 08:27 Dose: 100 mg Documented By: ELIZA Glucose (Glucose Gel 15 Gm Gel..Gram.) 15 gm PO Q15M PRN; Protocol PRN Reason: per Hypoglycemia Standing Ord. Guaifenesin/Dextromethorphan (Guaifenesin Dm 200/20/10 Ml 10 Ml Syrup) 10 ml PO Q6H PRN PRN Reason: Cough Last Admin: 07/05/24 06:07 Dose: 10 ml Documented By: MARIZTA Heparin Sodium (Porcine) (Heparin Sodium,Porcine 5,000 Unit/Ml Vial) 5,000 unit SUBCUT Q12H [facility] Last Admin: 07/05/24 08:28 Dose: 5,000 unit Documented By: ELIZA Dextrose (D10) 250 mls @ 750 mls/hr IV Q15M PRN; Protocol PRN Reason: per Hypoglycemia Standing Ord. Insulin Human Lispro (Insulin Lispro 100 Unit/Ml 3 Ml Vial) 0 unit SUBCUT QIDACHS [facility]; Protocol Last Admin: 07/05/24 08:26 Dose: 6 unit Documented By: ELIZA Losartan Potassium (Losartan Potassium 50 Mg Tablet) 100 mg PO DAILY [facility]; Protocol Last Admin: 07/05/24 08:27 Dose: 100 mg Documented By: ELIZA Metoprolol Succinate (Metoprolol Succinate Er 50 Mg Tab.Er.24h) 50 mg PO DAILY [facility]; Protocol Last Admin: 07/05/24 08:28 Dose: 50 mg Documented By: ELIZA Pravastatin Sodium (Pravastatin Sodium 40 Mg Tablet) 40 mg PO BEDTIME [facility] Senna (Sennosides 8.6 Mg Tablet) 8.6 mg PO DAILY PRN PRN Reason: Constipation Sodium Chloride (0.9 % Sodium Chloride Flush 3 Ml Syringe) 3 ml IVFLUSH QSHIFT [facility] Last Admin: 07/05/24 08:28 Dose: 3 ml Documented By: ELIZA Tamsulosin HCl (Tamsulosin Hcl 0.4 Mg Capsule) 0.4 mg PO BEDTIME [facility] Labs 07/04/24 05:01 07/04/24 05:01 Labs: Laboratory Results - last 24 hr 07/04/24 07/04/24 07/04/24 13:38 13:55 16:05 POC Glucose 206 H 123 H Respiratory Panel [place] See Note Adenovirus (Rapid PCR) Not Detected B.pert (TEM-PCR) Not Detected B.parapertussis DNA PCR Not Detected C. pneumoniae DNA (PCR) Not Detected Coronavirus OC43 (PCR) Not Detected Coronavirus HKU1 (PCR) Not Detected Coronavirus 229E (PCR) Not Detected Coronavirus NL63 (PCR) Not Detected Human Metapneumovir PCR Not Detected Influenza A (RT-PCR) Not Detected Influenza B (RT-PCR) Not Detected M. pneumoniae (PCR) Not Detected Parainfluenza 1 (PCR) Not Detected Parainfluenza 2 (PCR) Not Detected Parainfluenza 3 (PCR) Not Detected Parainfluenza 4 (PCR) Not Detected RSV (PCR) Not Detected Entero/Rhino (PCR) Detected A SARS-CoV-2 RNA (RT-PCR) Not Detected 07/04/24 07/05/24 21:02 06:57 POC Glucose 160 H 268 H Respiratory Panel [place] Adenovirus (Rapid PCR) B.pert (TEM-PCR) B.parapertussis DNA PCR C. pneumoniae DNA (PCR) Coronavirus OC43 (PCR) Coronavirus HKU1 (PCR) Coronavirus 229E (PCR) Coronavirus NL63 (PCR) Human Metapneumovir PCR Influenza A (RT-PCR) Influenza B (RT-PCR) M. pneumoniae (PCR) Parainfluenza 1 (PCR) Parainfluenza 2 (PCR) Parainfluenza 3 (PCR) Parainfluenza 4 (PCR) RSV (PCR) Entero/Rhino (PCR) SARS-CoV-2 RNA (RT-PCR) Assessment and Plan (1) Hypoxic respiratory failure: Status: Acute Plan Phil Ledbetter is 84 y/o admitted with: Hypoxic respiratory failure, suspecting acute bronchitis/upper respiratory tract infection. BNP elevated but negative CXR and lungs auscultation revealing no crackles. Continue supplemental O2 to keep O2 sats > 90%. Continue bronchodilator therapy. s/p IV azithromycin. Respiratory pathogen panel positive for entero/rhino virus Echocardiogram with EF of 50-55%, [id number] LVH with grade 2 diastolic dysfunction Elevated creatinine, unclear if pt has underlying kindney disease. Continue to monitor. Avoid nephrotoxic agents. Type 2 diabetes mellitus. Blood glucose checks before meals at bedtime. Insulin sliding scale. Diabetic diet. History of CAD S/p CABG. DVT prophylaxis: Heparin subQ attending Dr. Faith Code status: Full Quality Stroke Does the patient have a stroke diagnosis?: No VTE Prior VTE?: No VTE Risk Level:: Medical - moderate - high VTE Device Contraindication: Treatment Not Indicated VTE Drug Contraindication: N/A - Med Ordered
[2024-07-05 10:59] LABS: Glucose, Whole Blood 261 mg/dL (60-115)
--- NOTE | 2024-07-05 14:35 | MHC.CM.PN ---
Addendum entered by Liudmila Joseph 07/05/24 14:39: Lissetet's # is [phone]. Original Note: CM received a call from LISSETTE from [facility]/Protective services, who is involved with Patient r/t his wounds. RADHA explained that PT is recommending STR. CM will need to inform Lissette of the final dc plan.
[2024-07-05 16:40] LABS: Glucose, Whole Blood 184 mg/dL (60-115)
[2024-07-05] MEDS: Pravastatin Sodium 40 MG TABLET PO (20:38)
[2024-07-05] MEDS: Tamsulosin HCL 0.4 MG CAPSULE PO (20:38)
[2024-07-05 20:46] LABS: Glucose, Whole Blood 271 mg/dL (60-115)
[2024-07-06] VITALS (7 sets, daily range): BP systolic 119–160; BP diastolic 60–77; PULSE 60–84; RESP 18–22; TEMP 36.9–37.3; O2SAT 90–95
[2024-07-06 06:24] LABS: B Type Natriuretic Peptide 293 pg/mL (<100)
[2024-07-06 07:12] LABS: Glucose, Whole Blood 218 mg/dL (60-115)
[2024-07-06] MEDS: Albuterol/Iprat 2.5/0.5MG 3 ML AMPUL.NEB INHALE ×2 (07:45→11:11)
[2024-07-06] MEDS: Cyanocobalamin (Vitamin B-12) 1,000 MCG TABLET 1000 MCG PO (07:53)
[2024-07-06] MEDS: Gabapentin 100 MG CAPSULE PO (07:53)
[2024-07-06] MEDS: Losartan Potassium 50 MG TABLET 100 MG PO (07:53)
[2024-07-06] MEDS: Insulin Lispro 100 UNIT/ML 3 ML VIAL SUBCUT ×2 (07:53→11:37)
[2024-07-06] MEDS: Heparin Sodium,Porcine 5,000 UNIT/ML VIAL 5000 UNIT SUBCUT (07:53)
[2024-07-06] MEDS: cloNIDine HCL 0.1 MG TABLET 0.3 MG PO (07:53)
[2024-07-06] MEDS: Furosemide 40 MG TABLET PO (07:54)
[2024-07-06] MEDS: Clopidogrel Bisulfate 75 MG TABLET PO (07:54)
[2024-07-06] MEDS: Metoprolol Succinate ER 50 MG TAB.ER.24H PO (07:54)
[2024-07-06] MEDS: 0.9 % Sodium Chloride Flush 3 ML SYRINGE IVFLUSH (07:54)
[2024-07-06] MEDS: Amiodarone HCL 200 MG TABLET PO (07:54)
[2024-07-06] MEDS: amLODIPine Besylate 10 MG TABLET PO (07:54)
--- NOTE | 2024-07-06 09:21 | MHC.CM.PN ---
Per TROUBLE LOCATOR TEST DESK/Ирина, Patient is medically cleared for dc today to SNF/[facility]. [facility] with [facility] Liudmila @ [phone], Ext. [phone], requesting STR auth for STR @ [facility]. Requested information has been faxed to Liudmila @ [phone]. CM will follow.
--- NOTE | 2024-07-06 09:30 | MHC.CM.PN ---
CM met with Patient yesterday and assisted him with the completion of a HCP; Patient has named his niece/Katlin as his Agent.
[2024-07-06 10:58] LABS: Glucose, Whole Blood 276 mg/dL (60-115)
[2024-07-06] MEDS: guaiFENesin LA 600 MG TAB.ER.12H PO (11:37)
[2024-07-06] MEDS: Sennosides 8.6 MG TABLET PO (11:38)
--- NOTE | 2024-07-06 11:43 | HO.PM.IMPN ---
Subjective Subjective Date of Service: 07/06/24 Review of Systems Follow-up enterovirus/Coronavirus Feeling better Physical Exam Vital Signs: Vital Signs: Last Vital Signs Temp 98.9 F 07/06/24 11:10 Pulse 84 07/06/24 11:12 Resp 18 07/06/24 11:12 BP 119/60 07/06/24 11:10 Pulse Ox 95 07/06/24 11:10 O2 Del Method Nasal Cannula 07/06/24 11:10 O2 Flow Rate 2 07/06/24 11:10 Oxygen Flow Rate 4 07/04/24 00:55 BMI result Body Mass Index 33.7 Appearing in no acute distress lung sounds are clear to auscultation heart regular rate rhythm, clear S1, S2 positive bowel sounds, abdomen is soft, nontender neuro patient is alert x3, no focal deficits Objective Data Active Medications Acetaminophen (Acetaminophen 325 Mg Tablet) 975 mg PO Q6H PRN PRN Reason: Pain, Mild (Pain Scale 1-3), fever or headache Last Admin: 07/05/24 00:02 Dose: 975 mg Documented By: MARITZA Albuterol Sulfate (Albuterol Sulfate (0.083%) 2.5 Mg/3 Ml Vial.Neb) 2.5 mg INHALE Q2H PRN PRN Reason: Shortness of Breath/Wheezing Last Admin: 07/04/24 23:53 Dose: 2.5 mg Documented By: RENÉE Albuterol/Ipratropium (Albuterol/Iprat 2.5/0.5mg 3 Ml Ampul.Neb) 3 ml INHALE RQ4H WHILE AWAKE [facility] Last Admin: 07/06/24 11:11 Dose: 3 ml Documented By: SHELBY Amiodarone HCl (Amiodarone Hcl 200 Mg Tablet) 200 mg PO DAILY [facility] Last Admin: 07/06/24 07:54 Dose: 200 mg Documented By: VIJAYA Amlodipine Besylate (Amlodipine Besylate 10 Mg Tablet) 10 mg PO DAILY [facility]; Protocol Last Admin: 07/06/24 07:54 Dose: 10 mg Documented By: VIJAYA Clonidine HCl (Clonidine Hcl 0.1 Mg Tablet) 0.3 mg PO BID [facility]; Protocol Last Admin: 07/06/24 07:53 Dose: 0.3 mg Documented By: VIJAYA Clopidogrel Bisulfate (Clopidogrel Bisulfate 75 Mg Tablet) 75 mg PO DAILY [facility] Last Admin: 07/06/24 07:54 Dose: 75 mg Documented By: VIJAYA Cyanocobalamin (Cyanocobalamin (Vitamin B-12) 1,000 Mcg Tablet) 1,000 mcg PO DAILY [facility] Last Admin: 07/06/24 07:53 Dose: 1,000 mcg Documented By: VIJAYA Furosemide (Furosemide 40 Mg Tablet) 40 mg PO DAILY [facility]; Protocol Last Admin: 07/06/24 07:54 Dose: 40 mg Documented By: VIJAYA Gabapentin (Gabapentin 100 Mg Capsule) 100 mg PO BID [facility] Last Admin: 07/06/24 07:53 Dose: 100 mg Documented By: VIJAYA Glucose (Glucose Gel 15 Gm Gel..Gram.) 15 gm PO Q15M PRN; Protocol PRN Reason: per Hypoglycemia Standing Ord. Guaifenesin (Guaifenesin La 600 Mg Tab.Er.12h) 600 mg PO BID [facility] Last Admin: 07/06/24 11:37 Dose: 600 mg Documented By: VIJAYA Guaifenesin/Dextromethorphan (Guaifenesin Dm 200/20/10 Ml 10 Ml Syrup) 10 ml PO Q6H PRN PRN Reason: Cough Last Admin: 07/05/24 22:49 Dose: 10 ml Documented By: SHANELLE Heparin Sodium (Porcine) (Heparin Sodium,Porcine 5,000 Unit/Ml Vial) 5,000 unit SUBCUT Q12H [facility] Last Admin: 07/06/24 07:53 Dose: 5,000 unit Documented By: VIJAYA Dextrose (D10) 250 mls @ 750 mls/hr IV Q15M PRN; Protocol PRN Reason: per Hypoglycemia Standing Ord. Insulin Human Lispro (Insulin Lispro 100 Unit/Ml 3 Ml Vial) 0 unit SUBCUT QIDACHS [facility]; Protocol Last Admin: 07/06/24 11:37 Dose: 6 unit Documented By: VJIAYA Losartan Potassium (Losartan Potassium 50 Mg Tablet) 100 mg PO DAILY [facility]; Protocol Last Admin: 07/06/24 07:53 Dose: 100 mg Documented By: VIJAYA Metoprolol Succinate (Metoprolol Succinate Er 50 Mg Tab.Er.24h) 50 mg PO DAILY [facility]; Protocol Last Admin: 07/06/24 07:54 Dose: 50 mg Documented By: VIJAYA Pravastatin Sodium (Pravastatin Sodium 40 Mg Tablet) 40 mg PO BEDTIME [facility] Last Admin: 07/05/24 20:38 Dose: 40 mg Documented By: SHANELLE Senna (Sennosides 8.6 Mg Tablet) 8.6 mg PO DAILY PRN PRN Reason: Constipation Last Admin: 07/06/24 11:38 Dose: 8.6 mg Documented By: VIJAYA Sodium Chloride (0.9 % Sodium Chloride Flush 3 Ml Syringe) 3 ml IVFLUSH QSHIFT [facility] Last Admin: 07/06/24 07:54 Dose: 3 ml Documented By: VIJAYA Tamsulosin HCl (Tamsulosin Hcl 0.4 Mg Capsule) 0.4 mg PO BEDTIME [facility] Last Admin: 07/05/24 20:38 Dose: 0.4 mg Documented By: SHANELLE Labs 07/04/24 05:01 07/04/24 05:01 Labs: Laboratory Results - last 24 hr 07/05/24 07/05/24 07/06/24 16:18 20:39 05:55 POC Glucose 184 H 271 H B-Natriuretic Peptide 293 H 07/06/24 07/06/24 07:08 10:54 POC Glucose 218 H 276 H B-Natriuretic Peptide Assessment and Plan (1) Hypoxic respiratory failure: Status: Acute Plan Phil Ledbetter is 84 y/o admitted with: Hypoxic respiratory failure, suspecting acute bronchitis/upper respiratory tract infection. BNP elevated but negative CXR and lungs auscultation revealing no crackles. Continue supplemental O2 to keep O2 sats > 90%. Continue bronchodilator therapy. s/p IV azithromycin. Respiratory pathogen panel positive for entero/rhino virus Echocardiogram with EF of 50-55%, [id number] LVH with grade 2 diastolic dysfunction mucinex for dry cough Elevated creatinine, unclear if pt has underlying kindney disease. Continue to monitor. Avoid nephrotoxic agents. Type 2 diabetes mellitus. Blood glucose checks before meals at bedtime. Insulin sliding scale. Diabetic diet. History of CAD S/p CABG. DIPSO plan for STR when bed available DVT prophylaxis: Heparin subQ attending Dr. Faith Code status: Full Quality Stroke Does the patient have a stroke diagnosis?: No VTE Prior VTE?: No VTE Risk Level:: Medical - moderate - high VTE Device Contraindication: Treatment Not Indicated VTE Drug Contraindication: N/A - Med Ordered
--- NOTE | 2024-07-06 12:29 | MHC.CM.PN ---
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 [facility] been obtained and [facility] via [facility], with 1 PM meat pickler today. CM spoke with HCP/Amrita Dalal & Significant Other/ Mariann' earlier today and informed them of the dc plan. Last IMM was addressed on 07/04/2024.
--- NOTE | 2024-07-06 12:41 | P.DS_ITS ---
DS: Providers Provider Date of Service: 07/06/24 Date of admission: 07/04/24 04:20 Primary care physician: SYED Rubi Consults: 07/04/24 16:27 Consult to Wound Care Routine Reason for consultation: bilateral lower ext wnds/ reddened buttocks/coccyx DS: Diagnosis Discharge Diagnosis (1) Hypoxic respiratory failure: Status: Acute DS: Summary Hospital Course Hospital Course: History and physical as per admitting provider. Phil Ledbetter is 84 years old man with past medical history significant for type 2 diabetes mellitus and CAD status post CABG in 2019 presents to the emergency department via EMS due shortness of breaths has been worsening over the last couple of days. HPI was challenging to obtain as the patient is a very vague historian and very hard of hearing. He reported cough and denies chest pain. There is no fevers chills reported. He stated that he had wounds to his lower extremities due to diabetes. Did not report any acute gastrointestinal symptoms. Denies tobacco smoking and do not use home oxygen. Seems like the patient was seen in the emergency department earlier and was discharged home on inhaler but he was unable to fill the prescriptions. In the ED, he was found to have tachypnea. He was placed on 4 L/min supplemental oxygen via nasal cannula by EMS and was given a breathing treatment. There is no fever. There is no leukocytosis. Creatinine is 1.83. BNP is elevated, 689. There are no electrolyte imbalances. Viral testing for COVID-19, influenza and RSV is negative. CXR showed no acute cardiopulmonary abnormalities, pulmonary edema or pneumonia. ED tx: Lasix 20 mg IV. DuoNeb. 84-year-old man treated for acute hypoxic respiratory failure secondary to enterovirus/rhino virus. Treated with IV azithromycin and bronchodilator thera py. Echocardiogram showing EF of 50-55% with [id number] LVH with grade 2 diastolic dysfunction, treated with Mucinex for dry cough. He was noted to have an elevated creatinine with no known history of kidney disease but did resolve with some IV fluids. At this time patient is able to ambulate and has not had any increasing and hypoxia. Plan is for him to be transferred to short-term rehab for physical therapy. Diabetes mellitus type 2 with diabetic neuropathy. Continue home medications for diabetes and gabapentin for neuropathy History of coronary artery disease. Continue beta-oli, statin, Plavix BPH. Continue tamsulosin Hypertension. 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 Continue amiodarone Time Attestation Discharge Coordination Time (in mins): 35 Quality: Safe Use of Opioids Does Pt have an Active Cancer Diagnosis on the Problem List?: No Quality: Stroke Does the patient have a stroke diagnosis?: No Physical Exam Vital Signs: Vital Signs: Last Vital Signs Temp 98.9 F 07/06/24 11:10 Pulse 84 07/06/24 11:12 Resp 18 07/06/24 11:12 BP 119/60 07/06/24 11:10 Pulse Ox 95 07/06/24 11:10 O2 Del Method Nasal Cannula 07/06/24 11:10 O2 Flow Rate 2 07/06/24 11:10 Oxygen Flow Rate 4 07/04/24 00:55 BMI result Body Mass Index 33.7 Appearing in no acute distress head is normocephalic atraumatic eyes pupils are PERRLA sclera is anicteric mouth throat mucous membranes are intact and moist neck is supple no lymphadenopathy, no JVD noted lung sounds are clear to auscultation heart regular rate rhythm, clear S1, S2 positive bowel sounds, abdomen is soft, nontender neuro patient is alert x3, no focal deficits DS: Data Data Completed and Pending Labs on day of discharge: Laboratory Results - last 24 hr 07/05/24 07/05/24 07/06/24 16:18 20:39 05:55 POC Glucose 184 H 271 H B-Natriuretic Peptide 293 H 07/06/24 07/06/24 07:08 10:54 POC Glucose 218 H 276 H B-Natriuretic Peptide Discharge Plan Discharge Anticipated Discharge Date/Time: 07/06/24 12:35 Patient Disposition: Xfer SNF Discharge Diagnosis: Acute hypoxic respiratory failure Bronchitis PETER [facility] - [facility] Week Forrest Marin PA [Primary Care Provider] - 1 Week Discharge Medications: Continued amiodarone 200 mg Tablet 200 mg PO DAILY furosemide 40 mg Tablet 40 mg PO DAILY sennosides [senna] 8.6 mg Tablet 8.6 mg PO DAILY PRN (Reason: Constipation) pravastatin 40 mg Tablet 40 mg PO BEDTIME metoprolol succinate 50 mg Tablet Extended Release 24 Hr 50 mg PO DAILY clonidine HCl 0.3 mg Tablet 0.3 mg PO BID cyanocobalamin (vitamin B-12) 1,000 mcg Tablet 1,000 mcg PO DAILY clopidogrel 75 mg Tablet 75 mg PO DAILY tamsulosin 0.4 mg Capsule 0.4 mg PO BEDTIME amlodipine 10 mg Tablet 10 mg PO DAILY gabapentin 100 mg Capsule 100 mg PO BID losartan 100 mg Tablet 100 mg PO DAILY insulin glargine-yfgn 100 unit/mL (3 mL) Insulin Pen 40 unit SUBCUT DAILY Discharge Orders: Discharge Order (Routine); Ordered 07/06/24 Ordered By: Ирина Aaron Diet: Advance to usual diet Activity on Discharge: As tolerated Stand Alone Forms: Patient Portal Discharge page Print Language: Gambian Care Plan Goals: Transfer to short-term Care for physical therapy Health Concerns: Acute hypoxic respiratory failure Bronchitis PETER Plan of Treatment: Follow-up with primary care provider as needed Take all medications as prescribed Assessment: See discharge summary
--- NOTE | 2024-07-06 12:52 | MHC.CM.PN ---
CM left a detailed message for Protective Services ES Worker/Lissette @ [phone], informing her of the dc plan.
--- NOTE | 2024-07-06 13:14 | HO.WOUND ---
Wound Consult: Initial 84yr old?male admitted to [facility] on 07/04/24 - See progress notes and H&P for detailed history.? Wound consult placed for bilaterla lower legs and buttock wound POA.? Patient agreeable to assessment and photo documentation.? Buttock Etiology: ??MASD Present on Admission Wound Bed: mirrored redness intact and remains blanchable Drainage / Odor: None Edges: ? mirrored Ryann wound: ? intact No Induration, Fluctuance or Warmth noted Pain: mild tenderness reported Goals of Treatment: ? barrier cream and off load pressure Left posterior leg Bilateral Lower Legs Etiology: ??Venous stasis Wound Bed: carina wound bed Drainage / Odor: holloway yellow drainage noted on bed linen Edges: ? irregular Ryann wound: redness, firm edema, dry epidermal layer (Venous Dermatitis)? No Induration, Fluctuance or Warmth noted Pain: denies Goals of Treatment: ? Elevate - moist wound healing to wound beds Recommendations: 1. Turn and Reposition every 2 hours and as needed for patient comfort.? Use pillows or wedges to support off loading positions. 2. Off Load all bony prominences with use of pillows and heel boots if needed.? Apply Preventative foams where needed. ? 3. Monitor for incontinence and moisture control, use barrier creams when needed for prevention and treatment. 4. Provide adequate and supplemental nutrition.? 5. Order low air loss mattress. 6. When applicable maintain blood glucose levels per Providers order. 7. Buttock and Coccyx - Routine cleansing, apply barrier cream twice daily and PRN after episodes on incontinence. Off Load pressure with waffle cushion when up to chair. 8. Bilateral lower legs - Elevate lower legs with pillows float heels off of bed or recliner chair surface. Cleanse with PH blanced wash. Apply lotion to lower legs, cover wound beds with xeroform, dry abd pad and gauze wrap. Change daily. Re-consult wound care Nurse for wound deterioration or wound changes.
== END 2024-07-06 13:19 | disposition skilled nursing facility (03) | DRG 202 ==
LOC: HO.ED 01:55 → HO.EDOVER 04:34 → HO.IMC 14:11
PROVIDERS: Admitting Provider Internal Medicine; Emergency Provider Internal Medicine; PCP Physician Assistant; Visit Provider Nurse Practitioner Acute Care
DX: J20.9 Acute bronchitis, unspecified (principal); J96.01 Acute respiratory failure with hypoxia; I50.32 Chronic diastolic (congestive) heart failure; B97.10 Unspecified enterovirus as the cause of diseases classified elsewhere; B97.89 Other viral agents as the cause of diseases classified elsewhere; N40.0 Benign prostatic hyperplasia without lower urinary tract symptoms; I25.10 Atherosclerotic heart disease of native coronary artery without angina pectoris; E11.40 Type 2 diabetes mellitus with diabetic neuropathy, unspecified; Z20.822 Contact with and (suspected) exposure to COVID-19; Z95.2 Presence of prosthetic heart valve; Z95.1 Presence of aortocoronary bypass graft; Z79.4 Long term (current) use of insulin; Z79.02 Long term (current) use of antithrombotics/antiplatelets; Z79.899 Other long term (current) drug therapy
CPT/HCPCS: 36415; 71045; 80048; 82947; 83735; 83880; 84484; 85027; 85610; 85730; 87633; 93005; 93306; 94640; 97162; 99285; J0456; J1644; J1940; Q9957

== ENCOUNTER 2024-07-04 04:20 | Outpatient (BNV) | payer OTHER, SELFPAY | END 2024-07-04 07:00 | PROVIDERS: Admitting Provider Internal Medicine; Emergency Provider Internal Medicine; Visit Provider Internal Medicine Cardiovascular Disease | DX: I35.2 Nonrheumatic aortic (valve) stenosis with insufficiency (principal); I34.81 Nonrheumatic mitral (valve) annulus calcification; I51.89 Other ill-defined heart diseases | CPT/HCPCS: 93306 ==

== ENCOUNTER → 2024-07-04 04:20 | Outpatient (BNV) | payer OTHER, SELFPAY | PROVIDERS: Admitting Provider Internal Medicine; Emergency Provider Internal Medicine; Visit Provider Internal Medicine | DX: J96.01 Acute respiratory failure with hypoxia (principal); J20.9 Acute bronchitis, unspecified | CPT/HCPCS: 99223; 99232; 99239; 99499 ==

== ENCOUNTER 2024-08-06 09:26 | Emergency (ER) | payer OTHER, SELFPAY ==
[2024-08-06] VITALS (8 sets, daily range): BP systolic 148–194; BP diastolic 60–98; PULSE 70–80; RESP 14–20; TEMP 36.6–37.4; O2SAT 91–95; BMI 32.3
--- NOTE | ~2024-08-06 | CT_ITS ---
EXAMINATION: CT ABDOMEN PELVIS WITHOUT IV CONTRAST CLINICAL INFORMATION: right flank/ RLQ pain r/o kidney stone vs appy COMPARISON: No prior CT available for comparison. TECHNIQUE: Multidetector volumetric imaging was performed from the superior aspect of the liver through the pubic symphysis , noncontrast CT Sagittal and coronal reformatted images were obtained on the technologist's workstation. This CT examination was performed using dose optimization techniques as appropriate, variously including the following: *Automated exposure control *Adjustment of mA and/or kV according to patient size (this includes techniques or standardized protocols for targeted exams where dose is matched to indication/reason for exam; i.e. extremities or head) *Use of iterative reconstruction technique DLP: 685 mGy-cm FINDINGS: LOWER THORAX: Included lung bases are clear. HEPATOBILIARY: No focal hepatic lesions. No biliary ductal dilatation. GALLBLADDER: Gallbladder not visualized might have been removed or contracted. SPLEEN: Spleen is normal in size. PANCREAS: No focal mass or ductal dilatation. STOMACH AND GASTROINTESTINAL TRACT: There is a sliding hiatal hernia, stomach is decompressed. There is circumferential wall thickening of the distal rectum, in part due to its nondistention, cannot rule out proctitis or pathology. Refer image 81 series of 3 no evidence of bowel obstruction, mild diverticulosis of the sigmoid colon without CT evidence of acute diverticulitis. Excess amount of stool in the colon, cannot rule out constipation. ADRENALS: No adrenal nodules. KIDNEYS/URETERS: Simple cyst protruding from the posterior right renal cortex measure 5.6 cm the attenuation of its matrix is below 0, compatible with simple cysts Bosniak class I, these commonly benign, no follow-up imaging recommended. No kidney stone or hydronephrosis. URINARY BLADDER: Partially decompressed. PELVIC VISCERA: Enlarged prostate measuring up to 7 x 6.5 cm indenting on the bladder floor. PERITONEUM: No free air or fluid. LYMPH NODES: No lymphadenopathy. VASCULAR:Abdominal aorta is heavily calcified nonaneurysmal. BONES, ABDOMINAL WALL AND SOFT TISSUES: There are subtle changes of bone trabeculation of the pelvis and femurs, with few areas of radiolucencies, although could be a symmetric bone demineralization, cannot rule out the possibility of early diffuse bone metastasis, this could be assessed further with follow-up bone scan. CT/CT abdomen pelvis wo IV con IMPRESSION: 1. No CT evidence of kidney stone or hydronephrosis. No evidence of appendicitis. 2. Circumferential wall thickening of the distal rectum, in part due to its nondistention, cannot rule out proctitis or rectal pathology. Attention to correlation with follow-up outpatient colonoscopy recommended. 3. Excess amount of stool in the colon, cannot rule out constipation. 4. Diverticulosis without evidence of acute diverticulitis. 5. Enlarged prostate indenting on the bladder floor. 6. Subtle diffuse heterogeneous hypodense areas within the pelvis, sacrum, femoral bones, cannot rule out the possibility of early diffuse bone metastasis, such as from prostate CA, please correlate with patient's clinical history, consider bone scan for further investigation. Electronically signed by: Inessa Mcfarland MD 08/06/2024 11:45 AM RENNY MORAN
--- NOTE | 2024-08-06 09:36 | ECG_ITS ---
Test Reason : ABD PAIN Blood Pressure : / mmHG Vent. Rate : 070 BPM Atrial Rate : 070 BPM P-R Int : 204 ms QRS Dur : 102 ms QT Int : 436 ms P-R-T Axes : 000 -40 051 degrees QTc Int : 470 ms Normal sinus rhythm Left axis deviation Inferior infarct , age undetermined Anteroseptal infarct (cited on or before 02-JUL-2024) Abnormal ECG When compared with ECG of 04-JUL-2024 01:39, No significant change was found Referred By: Kade Camarillo Electronically Signed By:SHYANNE PRADO MD
--- NOTE | 2024-08-06 09:44 | ED.ABDPAIN ---
HPI - Abdominal Pain General Chief Complaint: Abdominal Pain Stated Complaint: ABD PAIN BACK PAIN Time Seen by Provider: 08/06/24 09:36 Source: patient and EMS Mode of arrival: EMS Limitations: no limitations History of Present Illness ED Provider: DR. Camarillo HPI narrative: 84-year-old male came in by ambulance for evaluation of right flank pain radiates down to the right lower abdominal, pain is constant start at 08:00 and woke the patient up from sleep, pain was associated with nausea but no vomiting or diarrhea, no bowel movement this morning last normal bowel movement was yesterday, no blood in the urine, no dysuria, no frequency urination, patient do not recall history of prior intra-abdominal surgery. Related Data Home Medications ?Medication ?Instructions ?Recorded ?Confirmed amiodarone 200 mg tablet 200 mg PO DAILY 07/04/24 08/06/24 amlodipine 10 mg tablet 10 mg PO DAILY 07/04/24 08/06/24 clonidine HCl 0.3 mg tablet 0.3 mg PO BID 07/04/24 08/06/24 clopidogrel 75 mg tablet 75 mg PO DAILY 07/04/24 08/06/24 cyanocobalamin (vitamin B-12) 1,000 mcg PO DAILY 07/04/24 08/06/24 1,000 mcg tablet furosemide 40 mg tablet 20 mg PO DAILY 07/04/24 08/06/24 gabapentin 100 mg capsule 100 mg PO BID 07/04/24 08/06/24 insulin glargine-yfgn 100 unit/mL 40 unit subcut DAILY 07/04/24 08/06/24 (3 mL) subcutaneous pen losartan 100 mg tablet 100 mg PO DAILY 07/04/24 08/06/24 metoprolol succinate 50 mg 50 mg PO DAILY 07/04/24 08/06/24 tablet,extended release 24 hr pravastatin 40 mg tablet 40 mg PO BEDTIME 07/04/24 08/06/24 sennosides 8.6 mg tablet (senna) 8.6 mg PO DAILY PRN Constipation 07/04/24 08/06/24 tamsulosin 0.4 mg capsule 0.4 mg PO BEDTIME 07/04/24 08/06/24 Allergies Allergy/AdvReac Type Severity Reaction Status Date / Time No Known Drug Allergies Allergy Unknown NONE Verified 07/04/24 00:58 Review of Systems Review of Systems All other systems are reviewed and are negative Constitutional: Reports as per HPI and Reports no additional constitutional complaints Eyes: Reports as per HPI and Reports no additional eye complaints Reports system reviewed and no additional complaints, except as documented Cardiovascular: Reports as per HPI and Reports no additional cardiovascular complaints Respiratory: Reports as per HPI and Reports no additional respiratory complaints Gastrointestinal: Reports as per HPI and Reports no additional gastrointestinal complaints Genitourinary: Reports no additional female genitourinary complaints Musculoskeletal: Reports no additional musculoskeletal complaints Skin/Breast: Reports system reviewed and no additional complaints, except as docu Psychiatric: Reports no additional psychiatric complaints Endocrine: Reports no additional endocrine complaints Hematologic/Lymphatic: Reports no additional hematologic/lymphatic complaints Allergic/Immunologic: Reports no additional allergic/immunologic complaints Reports system reviewed and no additional complaints, except as documented and Reports Abnormal speech present [facility] Past Medical History Medical History Congestive heart failure Type 2 diabetes mellitus Coronary artery disease Surgical History Hx of CABG Social History Social History Household Members: Unknown / Unable to assess Housing: Unknown / Unable to assess Patient Tobacco Use Status: Tobacco use Unknown Smoked in Last 30 Days: No Use of substances other than those prescribed or required for medical reasons: No Advance Directives: No Advance Directives Information Provided: No Do you have a plan to hurt others: No Plan Physical Exam ED Vital Signs: Vital Signs - 24 hr 08/06/24 09:26 08/06/24 12:42 08/06/24 14:46 Temperature 98.8 F 98.1 F 98.2 F Pulse Rate 75 78 76 Respiratory Rate 16 16 16 Blood Pressure 164/77 H 148/71 H 169/95 H Pulse Oximetry 93 91 L 94 Oxygen Delivery Method Room Air Room Air Room Air 08/06/24 15:46 Temperature 98.6 F Pulse Rate 80 Respiratory Rate 20 Blood Pressure 186/89 H Pulse Oximetry 93 Oxygen Delivery Method Room Air BMI result Body Mass Index 32.3 Vital signs have been reviewed and appear to be correct. Blood pressure elevated. Heart rate normal. Respiratory rate normal. Temperature normal. Oxygen saturation normal. Appearance: Alert. Oriented X3. No acute distress. Head: Normal external exam. Normocephalic. Atraumatic. No Ahn signs noted. No raccoon eyes noted Eyes: PERRLA. EOMI. Conjunctiva and sclera normal. Eyelids normal. ENT: TM's Normal. Pharynx normal. Uvula midline. Moist mucous membranes. No trismus noted. No drooling noted. No muffled voice noted. Neck: Normal inspection. Neck supple. FROM. No adenopathy. Thyroid Normal. No meningeal signs. No neck mass noted. CVS: Normal heart rate and rhythm. Heart sound normal. No murmurs noted. Pulses normal throughout. Respiratory: No respiratory distress. Painless inspiration. Breath sounds normal. No wheezes/rales/rhonchi noted. Chest nontender. No accessory muscle usage noted or decreased air movement noted. Abdomen: Soft and nontender. Bowel sounds normal in all 4 quadrants. No distention noted. No organomegaly noted. No visible injury noted. Back: R CVA tenderness. Full range of motion noted. Skin: Skin warm and dry. Normal skin color. Normal skin turgor. No rashes/lesions/lacerations noted. Extremities: No lower extremity edema. Extremities exhibit normal range of motion. Extremities nontender. Neuro: Oriented X 3. Cranial nerve exam: II-XII are grossly intact No motor deficit. No sensory deficit. Reflexes normal. Course Reevaluation(s) Reevaluation #1: 84-year-old male with right-sided abdominal pain, CT of the abdomen pelvis shows no hydronephrosis or ureteric stone, no evidence of appendicitis either, normal WBCs, patient's symptoms more than likely to be secondary to constipation will administer milk of magnesia and Dulcolax [place], patient feels better now will discharge to follow-up with PCP and continuous crusher operator for possible colonoscopy. Time: 14:00 Reevaluation #2: patient stated that he can not go home, will be hard for him to care for himself home alone, requesting to be admitted to the hospital since the patient do not meet criteria for hospitalization will keep the patient under physician observation get sr. social media & mobile manager /case management involved and hopefully disposition to rehab. Start physician observation now. Time: 16:26 Medical Decision Making Differential Diagnosis Differential Diagnoses: The differential diagnosis associated with the presentation includes ( Acute appendicitis, right kidney stone, pyelonephritis, UTI, colitis, diverticulitis, constipation,) Admission/Observation Consideration of admission/observation: Escalation of care including admission/observation considered Lab Data MDM Lab Attestation statement: I reviewed the patient's lab results. 08/06/24 09:57 08/06/24 10:36 Labs: Lab Results 08/06/24 08/06/24 08/06/24 Range/Units 09:57 10:36 11:05 WBC 9.1 (4.8-10.8) X10*3/uL RBC 5.34 (4.60-5.80) X10*6/uL Hgb 14.3 (14.0-18.0) g/dl Hct 42.8 (42.0-52.0) % MCV 80.1 (80.0-98.0) fL MCH 26.8 L (27.0-33.0) pg MCHC 33.4 (31.0-36.0) g/dl RDW 14.5 (11.0-16.0) % Plt Count 214 (160-400) X10*3/uL MPV 10.4 (9.4-12.4) fL Immature Gran % (Auto) 0.4 (0.0-0.4) % Neut % (Auto) 83.2 H (45-73) % Lymph % (Auto) 9.7 L (20-40) % [place] % (Auto) 4.8 (2-11) % Eos % (Auto) 1.2 (0-4) % Baso % (Auto) 0.7 (0-2) % Lymph # (Auto) 0.9 L (1.2-4.9) X10*3/uL [place] # (Auto) 0.4 (0.1-1.2) X10*3/uL Eos # (Auto) 0.1 (0.0-0.4) X10*3/uL Baso # (Auto) 0.1 (0.0-0.2) X10*3/uL Abs Immat Gran (auto) 0.04 H (0.00-0.03) X10*3/uL Absolute Neuts (auto) 7.5 (2.0-8.3) x10*3/uL Absolute Nucleated RBC 0.000 (0.0-0.012) X10*3/uL Nucleated RBC % (auto) 0.0 (0.0-0.2) /100WBC PT 10.8 L (10.9-12.4) SEC INR 0.9 (0.9-1.1) APTT 31.9 (26.0-36.8) SEC Sodium 139 (135-145) mmol/L Potassium 4.3 (3.3-5.1) mmol/L Chloride 104 (96-108) mmol/L Carbon Dioxide 24 (22-29) mmol/L Anion Gap 15 (12-20) BUN 24 H (9-16) mg/dL Creatinine 1.58 H (0.5-1.4) mg/dL Estim Creat Clear Calc 42.4 Estimated GFR 42 Random Glucose 281 H (60-115) mg/dL Calcium 9.2 (8.4-10.2) mg/dL Total Bilirubin 0.8 (0.0-1.0) mg/dL Direct Bilirubin 0.3 (0.0-0.5) mg/dL AST 21 (5-37) U/L ALT 27 (0-40) U/L Alkaline Phosphatase 99 (39-117) U/L Troponin I High Sens 15.7 (<3.5-35.0) ng/L B-Natriuretic Peptide 241 H (<100) pg/mL Total Protein 7.0 (6.5-8.0) g/dL Albumin 3.9 (3.5-5.0) g/dL Lipase 8 (8-78) U/L Urine Color Yellow Urine Appearance Clear Urine pH 6.5 (5.0-9.0) Ur Specific [place] 1.015 (1.005-1.025) Urine Protein 100 (2+) H (Neg-Trace) mg/dL Urine Glucose (UA) 500 H (Negative) mg/dL Urine Ketones Trace (Negative) mg/dL Urine Blood Negative (Negative) Urine Nitrite Negative (Negative) Ur Leukocyte Esterase Negative (Negative) Urine RBC 0-2 (0-2) /HPF Urine WBC 0-5 (0-5) /HPF Ur Squamous Epith Cells 0-2 (0-2) /HPF Urine Bacteria None Seen (None Seen) Hyaline Casts 0-2 (0-2) /LPF Independent Interpretation I performed an independent interpretation of an: CT Scan (Abdomen pelvis:. No CT evidence of kidney stone or hydronephrosis. No evidence of appendicitis. 2. Circumferential wall thickening of the distal rectum, in part due to its nondistention, cannot rule out proctitis or rectal pathology. Attention to correlation with follow-up outpatient colonosc) Radiology Impression Discussion of test interpretation with radiology: I have reviewed the radiologist's reading. Medications Administered Generic Name Dose Route Start Last Admin Trade Name Freq PRN Reason Stop Dose Admin Magnesium Hydroxide 30 ml 08/06/24 12:12 08/06/24 12:39 Milk Of Magnesia 30 Ml Oral.Susp PO 30 ml DAILY PRN Administration Constipation Discontinued Medications Generic Name Dose Route Start Last Admin Trade Name Freq PRN Reason Stop Dose Admin Bisacodyl 10 mg 08/06/24 12:12 08/06/24 12:39 Bisacodyl 10 Mg Supp.Rect IL 08/06/24 12:13 10 mg ONCE ONE Administration Sodium Chloride 1,000 mls @ 999 mls/hr 08/06/24 09:36 08/06/24 10:59 Ns IV 08/06/24 10:36 Infused .Q1H1M ONE Infusion Discharge Plan Discharge Clinical Impression: Constipation Patient Disposition: Still a Patient Instructions: Constipation (ED) Additional Instructions: Use [id number] MiraLax for a soft bowel movement. Drink plenty of fluids. Need to follow-up with GI for colonoscopy. Prescriptions: No Action amiodarone 200 mg Tablet 200 mg PO DAILY furosemide 40 mg Tablet 20 mg PO DAILY sennosides [senna] 8.6 mg Tablet 8.6 mg PO DAILY PRN (Reason: Constipation) pravastatin 40 mg Tablet 40 mg PO BEDTIME metoprolol succinate 50 mg Tablet Extended Release 24 Hr 50 mg PO DAILY clonidine HCl 0.3 mg Tablet 0.3 mg PO BID cyanocobalamin (vitamin B-12) 1,000 mcg Tablet 1,000 mcg PO DAILY clopidogrel 75 mg Tablet 75 mg PO DAILY tamsulosin 0.4 mg Capsule 0.4 mg PO BEDTIME amlodipine 10 mg Tablet 10 mg PO DAILY gabapentin 100 mg Capsule 100 mg PO BID losartan 100 mg Tablet 100 mg PO DAILY insulin glargine-yfgn 100 unit/mL (3 mL) Insulin Pen 40 unit SUBCUT DAILY Referrals: Ana Jackson MD [Physician] - Print Language: Brazilian
--- NOTE | 2024-08-06 09:57 | PC.NURSE ---
biba from home d/t right sided abd pain w/ associated lower back pain/nausea x this am that woke him up from his sleep. worsens w/ laying down. tender/distended. denies urinary sx/fever/chills. upon ED arrival - a&ox4. vss and up to date. nsr on the lunchroom monitor. pt changed into hospital attire. 20gIV placed in the left index finger - labs obtained/sent to lab. pt seen by ED provider/aware of plan of care. pt waiting to go to CT. pt aware UA is needed - urinal placed bedside for convenience. on RA w/o difficulty. no sob/wob noted. respirations even/unlabored. plan of care ongoing. call pruitt placed within reach.
[2024-08-06] MEDS: 0.9 % Sodium Chloride 1,000 ML 999 ML IV (09:58)
[2024-08-06 10:01] LABS: MANUAL DIFF FLAG NO
[2024-08-06 10:04] LABS: Basophils Absolute Auto 0.1 X10*3/uL (0.0-0.2); Basophils Percent Auto 0.7 % (0-2); Eosinophils Absolute Auto 0.1 X10*3/uL (0.0-0.4); Eosinophils Percent Auto 1.2 % (0-4); Hematocrit 42.8 % (42.0-52.0); Hemoglobin 14.3 g/dl (14.0-18.0); Imm Gran Abs Auto 0.04 X10*3/uL (0.00-0.03); Imm Gran Pct Auto 0.4 % (0.0-0.4); Lymphocytes Absolute Auto 0.9 X10*3/uL (1.2-4.9); Lymphocytes Percent Auto 9.7 % (20-40); Mean Corpuscular HGB Conc 33.4 g/dl (31.0-36.0); Mean Corpuscular Hemoglobin 26.8 pg (27.0-33.0); Mean Corpuscular Volume 80.1 fL (80.0-98.0); Mean Platelet Volume 10.4 fL (9.4-12.4); Monocytes Absolute Auto 0.4 X10*3/uL (0.1-1.2); Monocytes Percent Auto 4.8 % (2-11); Neutrophils Absolute Auto 7.5 x10*3/uL (2.0-8.3); Neutrophils Percent Auto 83.2 % (45-73); Platelet Count 214 X10*3/uL (160-400); Red Blood Count 5.34 X10*6/uL (4.60-5.80); Red Cell Distribution Width 14.5 % (11.0-16.0); White Blood Count 9.1 X10*3/uL (4.8-10.8)
[2024-08-06 10:10] LABS: INTERNATIONAL NORM RATIO 0.9 (0.9-1.1); Prothrombin Time 10.8 SEC (10.9-12.4)
[2024-08-06 10:13] LABS: Partial Thromboplastin Time 31.9 SEC (26.0-36.8)
--- NOTE | 2024-08-06 10:29 | PC.NURSE ---
pt to CT at this time.
[2024-08-06 10:55] LABS: Alanine Aminotransferase 27 U/L (0-40); Albumin Level 3.9 g/dL (3.5-5.0); Alkaline Phosphatase 99 U/L (39-117); Anion Gap 15 (12-20); Aspartate Amino Transferase 21 U/L (5-37); Bilirubin Direct 0.3 mg/dL (0.0-0.5); Bilirubin Total 0.8 mg/dL (0.0-1.0); Blood Urea Nitrogen 24 mg/dL (9-16); Calcium 9.2 mg/dL (8.4-10.2); Carbon Dioxide 24 mmol/L (22-29); Chloride 104 mmol/L (96-108); Creatinine Clr Calc Pharmacy 42.4; Estimated Glomerular Filt Rate 42; Glucose Random 281 mg/dL (60-115); Lipase 8 U/L (8-78); Potassium 4.3 mmol/L (3.3-5.1); Sodium 139 mmol/L (135-145)
[2024-08-06 11:01] LABS: B Type Natriuretic Peptide 241 pg/mL (<100)
[2024-08-06 11:02] LABS: Troponin-I High Sensitivity 15.7 ng/L (<3.5-35.0)
[2024-08-06 11:12] LABS: Appearance Urine Clear; Color Urine Yellow; Glucose Urine UA 500 mg/dL (Negative); Leukocyte Esterase Urine Negative (Negative); Nitrite Urine Negative (Negative); PH 6.5 (5.0-9.0); Specific Gravity - Urine 1.015 (1.005-1.025); UMIC TRIGGER UACC YES; Urine Blood Negative (Negative); Urine Ketones Trace mg/dL (Negative); Urine Protein 100 (2+) mg/dL (Neg-Trace)
[2024-08-06 11:14] LABS: Bacteria Urine None Seen (None Seen); Hyaline Casts Urine 0-2 /LPF (0-2); RBC Urine 0-2 /HPF (0-2); Squamous Epithelial Cell Urine 0-2 /HPF (0-2); WBC Urine 0-5 /HPF (0-5)
--- NOTE | 2024-08-06 11:42 | PC.NURSE ---
urinal utilized - UA obtained/sent to lab. pt continues to rest in no apparent distress. no episodes of n/v. no sob/wob noted. respirations even/unlabored. plan of care ongoing.
[2024-08-06] MEDS: bisacodyL 10 MG SUPP.RECT PR (12:39)
[2024-08-06] MEDS: Milk of Magnesia 30 ML ORAL.SUSP PO (12:39)
--- NOTE | 2024-08-06 12:44 | PC.NURSE ---
vss and up to date. nsr on the panel monitor. medication administered per provider order. effectiveness pending. pt turned/repositioned to promote comfort. remains on RA w/o difficulty. no sob/wob noted. respirations remain even/unlabored. plan of care ongoing. call pruitt placed within reach.
--- NOTE | 2024-08-06 15:14 | PC.NURSE ---
pt up for discharge - transportation being arranged via BLS. ETA 1700. pt notified/aware.
--- NOTE | 2024-08-06 16:13 | PC.NURSE ---
benito BALTAZAR arrived to pick pt up/be transported back home. pt refusing to be discharged at this time as he states that he is still uncomfortable s/p medication administration. provider notified/aware. provider bedside speaking w/ pt. pt reports not feeling comfortable going home while he is feeling this way as his spouse is 89 years old and will not be able to tend to his needs. pt will be admitted for observation/PT/CM. medication reconciliation completed. will administer medications as scheduled.
[2024-08-06] MEDS: amLODIPine Besylate 10 MG TABLET PO (16:34)
--- NOTE | 2024-08-06 17:09 | PHA.MEDREC ---
Pharmacy Consult ? Medication Reconciliation Pharmacy has completed the medication reconciliation, utilized list from [place].
[2024-08-06 17:20] LABS: Glucose, Whole Blood 267 mg/dL (60-115)
[2024-08-06] MEDS: Cyanocobalamin (Vitamin B-12) 1,000 MCG TABLET 1000 MCG PO (17:38)
[2024-08-06] MEDS: Furosemide 20 MG TABLET 40 MG PO (17:38)
[2024-08-06] MEDS: Insulin Glargine,Hum.rec.anlog 100 UNIT/ML 10 ML VIAL 40 UNIT SUBCUT (17:39)
[2024-08-06] MEDS: Amiodarone HCL 200 MG TABLET PO (17:39)
[2024-08-06] MEDS: Metoprolol Succinate ER 50 MG TAB.ER.24H PO (17:39)
[2024-08-06] MEDS: Clopidogrel Bisulfate 75 MG TABLET PO (17:39)
[2024-08-06] MEDS: Losartan Potassium 50 MG TABLET 100 MG PO (17:39)
--- NOTE | 2024-08-06 17:48 | PC.NURSE ---
vss and up to date. pt's BP seems to be trending downward post BP medication administration. the rest of scheduled medication has been administered per provider order. respirations remain even/unlabored. no sob/wob noted. respirations even/unlabored. pt pending PT/CM eval. plan of care ongoing. call pruitt placed within reach.
[2024-08-06] MEDS: Gabapentin 100 MG CAPSULE PO (20:55)
[2024-08-06] MEDS: Tamsulosin HCL 0.4 MG CAPSULE PO (20:55)
[2024-08-06] MEDS: Pravastatin Sodium 40 MG TABLET PO (20:55)
[2024-08-06] MEDS: cloNIDine HCL 0.1 MG TABLET 0.3 MG PO (20:55)
[2024-08-06] MEDS: diazePAM 2 MG TABLET PO (23:42)
[2024-08-06] MEDS: Acetaminophen 325 MG TABLET 650 MG PO (23:42)
[2024-08-07 06:24] VITALS: BP 154/62; PULSE 62; RESP 18; O2SAT 97
[2024-08-07 07:20] LABS: Glucose, Whole Blood 267 mg/dL (60-115)
--- NOTE | 2024-08-07 07:25 | PC.NURSE ---
patient noted to have choked on breakfast, patient recovered quickly with coughing, suction set up at bedside, breakfast tray put aside. resp even and unlabored, patient airway intact
[2024-08-07 07:32] VITALS: BP 166/76; PULSE 62; RESP 15; O2SAT 95
[2024-08-07] MEDS: Gabapentin 100 MG CAPSULE PO ×2 (10:18→20:22)
[2024-08-07] MEDS: Amiodarone HCL 200 MG TABLET PO (10:18)
[2024-08-07] MEDS: Cyanocobalamin (Vitamin B-12) 1,000 MCG TABLET 1000 MCG PO (10:18)
[2024-08-07] MEDS: Losartan Potassium 50 MG TABLET 100 MG PO (10:18)
[2024-08-07] MEDS: Furosemide 20 MG TABLET 40 MG PO (10:19)
[2024-08-07] MEDS: Clopidogrel Bisulfate 75 MG TABLET PO (10:19)
[2024-08-07] MEDS: cloNIDine HCL 0.1 MG TABLET 0.3 MG PO ×2 (10:19→20:22)
[2024-08-07] MEDS: amLODIPine Besylate 10 MG TABLET PO (10:19)
[2024-08-07] MEDS: Metoprolol Succinate ER 50 MG TAB.ER.24H PO (10:19)
[2024-08-07] MEDS: Insulin Glargine,Hum.rec.anlog 100 UNIT/ML 10 ML VIAL 40 UNIT SUBCUT (10:19)
--- NOTE | 2024-08-07 10:25 | PC.NURSE ---
patient sitting u in bed, had speech and swallow eval done, recommended advanced / chopped diet, think liquids ok. medicated patient per NOV, took meds whole with water. patient given snack as requested
--- NOTE | 2024-08-07 11:48 | MHC.CM.PN ---
CM RECEIVED ED CONSULT, MET WITH PT AT BEDSIDE IN ED. PT RESIDES WITH HIS S/O. USES A WALKER FOR MAJOR MOBILITY. [facility] +HCP ON [facility], HAS PCP AT THE ME BUT CANNOT RECALL HIS NAME. Howie[facility] IS PENDING FOR DC DISPOSITION. PT STATES HE WILL DECIDE WHAT HE WANTS TO DO WHEN HE IS READY. CM WILL CONTINUE TO FOLLOW FOR FINAL PLAN.
--- NOTE | 2024-08-07 13:14 | PC.NURSE ---
patient in sitting up position, given lunch tray that was changed to chopped/advance diet
--- NOTE | 2024-08-07 16:30 | PC.NURSE ---
special procedure tech got patient up to commode patient had large bowel movement. patient bedding changed. patient requested condom cath, which was applied by tech.
--- NOTE | 2024-08-07 18:53 | PC.NURSE ---
patient ate dinner tray with no issues. patient resting quietly now
--- NOTE | 2024-08-07 19:30 | PC.NURSE ---
Phone provided to call girlfriend as requested. Assistance provided to call Mariann at [phone].
[2024-08-07 20:22] VITALS: BP 146/65
[2024-08-07] MEDS: Tamsulosin HCL 0.4 MG CAPSULE PO (20:22)
[2024-08-07] MEDS: Pravastatin Sodium 40 MG TABLET PO (20:25)
[2024-08-07 22:38] VITALS: BP 148/65; PULSE 50; RESP 16; TEMP 36.6; O2SAT 95
[2024-08-08] VITALS (8 sets, daily range): BP systolic 121–153; BP diastolic 56–88; PULSE 48–59; RESP 14–18; TEMP 36.4–37.5; O2SAT 93–96
[2024-08-08] MEDS: Acetaminophen 325 MG TABLET 975 MG PO (05:02)
--- NOTE | 2024-08-08 05:07 | MHC.EDTECH ---
600ml voided and emptied from cath bag
--- NOTE | 2024-08-08 05:08 | PC.NURSE ---
Pt awoke reporting low back pain, 5/10. Medicated with acetaminophen. Pt tolerated well PO. Heat pack applied to low back pain. Monitoring is ongoing .
[2024-08-08 07:12] LABS: Glucose, Whole Blood 202 mg/dL (60-115)
[2024-08-08] MEDS: amLODIPine Besylate 10 MG TABLET PO (09:01)
[2024-08-08] MEDS: Losartan Potassium 50 MG TABLET 100 MG PO (09:01)
[2024-08-08] MEDS: cloNIDine HCL 0.1 MG TABLET 0.3 MG PO ×2 (09:02→21:35)
[2024-08-08] MEDS: Amiodarone HCL 200 MG TABLET PO (09:02)
[2024-08-08] MEDS: Clopidogrel Bisulfate 75 MG TABLET PO (09:02)
[2024-08-08] MEDS: Metoprolol Succinate ER 50 MG TAB.ER.24H PO (09:02)
[2024-08-08] MEDS: Gabapentin 100 MG CAPSULE PO ×2 (09:03→21:35)
[2024-08-08] MEDS: Insulin Glargine,Hum.rec.anlog 100 UNIT/ML 10 ML VIAL 40 UNIT SUBCUT (09:03)
[2024-08-08] MEDS: Cyanocobalamin (Vitamin B-12) 1,000 MCG TABLET 1000 MCG PO (09:03)
[2024-08-08] MEDS: Furosemide 20 MG TABLET 40 MG PO (09:03)
--- NOTE | 2024-08-08 09:10 | PC.NURSE ---
this nurse took over care for patient at 7am, patient a&ox3, vitals stable, poc obtained was 202, pt previously had a swallow eval done- pt states that he previously ate too fast which is why he choked from not chewing his food well, speech is currently at bedside doing a new speech eval. pts respiratory rate equal/non labored, lungs diminished/clear, nasal swab performed, pt to go to overflow, call pruitt within reach, will continue plan of care.
[2024-08-08 09:36] LABS: COVID-19 Test Negative (Negative); IDNOW Serial# 152EDE1D
--- NOTE | 2024-08-08 10:21 | MHC.CM.ED ---
Patient remains in ER overflow. Physical therapy eval completed. Short term rehab is recommended. PCP is Forrest Meek. Met with patient in regards to discharge planning. Patient was d/c'd from [facility] [place] on 08/02. Patient agreeable to returning. Referral made via [facility]. Continue to monitor for d/c needs.
--- NOTE | 2024-08-08 10:42 | MHC.SL.SWA ---
Speech Pathologist Impression: Risk of Aspiration Oral Phase Dysphagia Risk of Aspiration Due to: Mild oral phase dysphagia Dysphasia Diet Status: Precautions Liquid Consistency and Strategies for Safe Swallow: Liquid Intake Recommendation: Thin Liquid Intake Strategies: Small Sips Solid Food Consistency: Dietary Recommendations: Chopped/Advanced (NDD3) Additional Modifications to Solid Foods: Patient with mild oral phase dysphagia secondary to poor dentition. Patient w/ few teeth in poor condition with spaces, reports his teeth only touch in one spot for chewing. Note slowed and prolonged period of mastication, oral residue cleared with purees/liquids. Recommend DOWNGRADE to CHOPPED/ADVANCED solids (NDD3) for ease of mastication, continue on THIN liquids, pills WHOLE with LIQUID. Strategies recommended to promote oral clearance: moisten food with sauces/gravies, avoid hard, dry, or tough to chew solids, take small bites, chew food well, alternate with sips of liquid. Oral Medication Intake: Whole with Liquid Please contact the pharmacy regarding appropriate crushable or liquid drug formulations that are available whenever modified delivery is recommended. Compensatory Strategies and Precautions to be Taken for Safe Swallow: Sitting Upright (90 deg) Double Swallow Small Bites and Sips Alternate Liquids/Solids Rate of Ingestion Change Avoid Specific Foods Supervision While Eating and Drinking for Safe Swallow: Intermittent Supervision Foods to Avoid: Hard, difficult to chew solids Swallowing Recommended Treatments: Compens. Strategy Educat. Recommendation for Speech: Inpatient Speech Therapy Comment: Pt seen for followup this morning, pt tolerating slightly downgraded diet (NDD3) with efficient use of compensatory strategies to reduce risk for dysphagia. Pt noted he ate sausage last week without chewing the bite enough and that is why he choked. Pt shows good awareness of taking his time, moistening solids when formulating bolus, alternating consistencies when swallowing and remaining upright in bed during and after meals. No overt s/s of aspriation observed this morning, RN reported no concerns with pt PO tolerance. MAILING SPECIALIST to followup once more during pt inpatient stay. Frequency/Duration: Date Range for Service Req: Timeline to reassess: Gambling Monitor Clinican/Clinical Fellow: No Supervisory Statement: I have reviewed and agree with the student/clinical fellow's documentation: N/A Speech Language Pathologist: Viridiana Crouch M.S. CCC-MAILING SPECIALIST
[2024-08-08 16:47] LABS: Glucose, Whole Blood 226 mg/dL (60-115)
--- NOTE | 2024-08-08 18:34 | PC.NURSE ---
pt has a large fluid filled blister on his left lower extrem. it is about 1/5 x 2.5 inches. ALLERGIST/IMMUNOLOGIST notified
[2024-08-08] MEDS: Tamsulosin HCL 0.4 MG CAPSULE PO (21:35)
[2024-08-08] MEDS: Pravastatin Sodium 40 MG TABLET PO (21:35)
[2024-08-09 05:14] VITALS: BP 128/84; PULSE 51; RESP 18; TEMP 36.2; O2SAT 96
[2024-08-09 07:48] LABS: Glucose, Whole Blood 142 mg/dL (60-115)
[2024-08-09] MEDS: Losartan Potassium 50 MG TABLET 100 MG PO (08:03)
[2024-08-09] MEDS: cloNIDine HCL 0.1 MG TABLET 0.3 MG PO ×2 (08:03→21:18)
[2024-08-09] MEDS: Metoprolol Succinate ER 50 MG TAB.ER.24H PO (08:03)
[2024-08-09] MEDS: Cyanocobalamin (Vitamin B-12) 1,000 MCG TABLET 1000 MCG PO (08:03)
[2024-08-09] MEDS: Furosemide 20 MG TABLET 40 MG PO (08:03)
[2024-08-09] MEDS: amLODIPine Besylate 10 MG TABLET PO (08:04)
[2024-08-09] MEDS: Clopidogrel Bisulfate 75 MG TABLET PO (08:04)
[2024-08-09] MEDS: Gabapentin 100 MG CAPSULE PO ×2 (08:04→21:18)
[2024-08-09] MEDS: Insulin Glargine,Hum.rec.anlog 100 UNIT/ML 10 ML VIAL 40 UNIT SUBCUT (08:06)
[2024-08-09] MEDS: Lidocaine 4 % Patch ADH..PATCH 1 PATCH TRANSDERMA (09:42)
[2024-08-09] MEDS: oxyCODONE HCl Immed Release 5 MG TABLET PO (09:42)
[2024-08-09] MEDS: Amiodarone HCL 200 MG TABLET PO (09:44)
[2024-08-09 11:37] VITALS: BP 122/86; PULSE 54; RESP 16; TEMP 36.4; O2SAT 94
[2024-08-09 11:50] LABS: Glucose, Whole Blood 258 mg/dL (60-115)
--- NOTE | 2024-08-09 15:54 | MHC.SL.DTX ---
Dysphagia Diet modifications: Last documented Solid diet consistencies: Regular Last documented Liquid consistency: Thin Last documented Medication Administration:Whole with Liquid Changes made to current diet?: Liquid Consistency and Strategies: Liquid Intake Recommendation: Thin Compensatory Strategies for Safe Swallow: Small Sips Compensatory Strategies for Safe Swallow(b): Sitting Upright (90 deg) Double Swallow Small Bites and Sips Alternate Liquids/Solids Rate of Ingestion Change Avoid Specific Foods Solid Food Consistency: Dietary Recommendations: Chopped/Advanced (NDD3) Additional Modifications to Solids: Pt tolerating NDD3 Solids today with Lunch. Assisted in to his recliner, but complaining of back pain seeking medication. ENGRAVER HAND SOFT METALS will continue to follow. Oral Medication Intake: Whole with Liquid Strategies and Precautions to be Taken for Safe Swallow: Sitting Upright (90 deg) Double Swallow Small Bites and Sips Alternate Liquids/Solids Rate of Ingestion Change Avoid Specific Foods Supervision While Eating and/Drinking: Intermittent Supervision Foods to Avoid: Hard, difficult to chew solids Swallowing Recommended Treatments: Compens. Strategy Educat. Recommendation for Speech: Inpatient Speech Therapy Comment: 1-2 f/u Press Operator Apprentice Clinican/Clinical Fellow: No Supervisory Statement: I have reviewed and agree with the student/clinical fellow's documentation: N/A Speech Language Pathologist: Kenji Grove M.A., CCC-ENGRAVER HAND SOFT METALS
[2024-08-09 17:01] LABS: Glucose, Whole Blood 180 mg/dL (60-115)
[2024-08-09] MEDS: Insulin Lispro 100 UNIT/ML 3 ML VIAL SUBCUT ×2 (17:14→21:18)
--- NOTE | 2024-08-09 19:14 | PC.NURSE ---
received report from previous nurse, assume care of pt at this time
[2024-08-09 20:00] VITALS: BP 149/70; PULSE 54; RESP 16; TEMP 36.8; O2SAT 93
[2024-08-09 21:18] LABS: Glucose, Whole Blood 185 mg/dL (60-115)
[2024-08-09] MEDS: Tamsulosin HCL 0.4 MG CAPSULE PO (21:18)
[2024-08-09] MEDS: Pravastatin Sodium 40 MG TABLET PO (21:18)
--- NOTE | 2024-08-09 21:39 | PC.NURSE ---
pt c/o of back pain. requests pain medication. pt has none ordered. sent Bob LYNCH a tiger text to request something for pain
[2024-08-10 06:00] VITALS: BP 159/73; PULSE 52; RESP 12; TEMP 36.4; O2SAT 94
--- NOTE | 2024-08-10 07:09 | PC.NURSE ---
report given to Jose Antonio ROSSI
[2024-08-10 07:45] LABS: Glucose, Whole Blood 83 mg/dL (60-115)
[2024-08-10] MEDS: Clopidogrel Bisulfate 75 MG TABLET PO (08:56)
[2024-08-10] MEDS: Insulin Glargine,Hum.rec.anlog 100 UNIT/ML 10 ML VIAL 40 UNIT SUBCUT (08:56)
[2024-08-10] MEDS: Amiodarone HCL 200 MG TABLET PO (08:56)
[2024-08-10] MEDS: Gabapentin 100 MG CAPSULE PO (08:56)
[2024-08-10] MEDS: amLODIPine Besylate 10 MG TABLET PO (08:56)
[2024-08-10] MEDS: cloNIDine HCL 0.1 MG TABLET 0.3 MG PO (08:56)
[2024-08-10] MEDS: Cyanocobalamin (Vitamin B-12) 1,000 MCG TABLET 1000 MCG PO (08:56)
[2024-08-10] MEDS: Furosemide 20 MG TABLET 40 MG PO (08:56)
[2024-08-10] MEDS: Losartan Potassium 50 MG TABLET 100 MG PO (08:57)
--- NOTE | 2024-08-10 09:35 | PC.NURSE ---
Addendum entered by Jose Antonio Hopper RN 08/10/24 16:40: informed facility to check POC upon arrival Addendum entered by Jose Antonio Hopper RN 08/10/24 16:36: open blister to RLE w/ redness to b/l LE's. noted. R side of abd distended. pt stated pain is not as bad as this AM Addendum entered by Jose Antonio Hopper RN 08/10/24 15:12: report given to facility Addendum entered by Jose Antonio Hopper RN 08/10/24 13:32: pt BP low, asymptomatic, md informed. will continue to monitor. two meds being held for tonight and per MD hold clonidine for SBP<100. 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 no acute complications or issues this AM during med pass and assessment
[2024-08-10] MEDS: Acetaminophen 325 MG TABLET 650 MG PO (11:22)
[2024-08-10] MEDS: Insulin Lispro 100 UNIT/ML 3 ML VIAL SUBCUT (11:27)
[2024-08-10 11:28] LABS: Glucose, Whole Blood 238 mg/dL (60-115)
--- NOTE | 2024-08-10 13:00 | MHC.SL.SWA ---
Speech Pathologist Impression: Minimal Risk of Aspiration Oral Phase Dysphagia Risk of Aspiration Due to: Hospitalization course with one episode of suspected aspiration at admission Dysphasia Diet Status: Tolerating NDD3 with thins Liquid Consistency and Strategies for Safe Swallow: Liquid Intake Recommendation: Thin Liquid Intake Strategies: Small Sips Solid Food Consistency: Dietary Recommendations: Chopped/Advanced (NDD3) Additional Modifications to Solid Foods: Patient with mild oral phase dysphagia secondary to poor dentition. Patient w/ few teeth in poor condition with spaces, reports his teeth only touch in one spot for chewing. Note slowed and prolonged period of mastication, oral residue cleared with purees/liquids. Recommend DOWNGRADE to CHOPPED/ADVANCED solids (NDD3) for ease of mastication, continue on THIN liquids, pills WHOLE with LIQUID. Strategies recommended to promote oral clearance: moisten food with sauces/gravies, avoid hard, dry, or tough to chew solids, take small bites, chew food well, alternate with sips of liquid. Oral Medication Intake: Whole with Liquid Please contact the pharmacy regarding appropriate crushable or liquid drug formulations that are available whenever modified delivery is recommended. Compensatory Strategies and Precautions to be Taken for Safe Swallow: Sitting Upright (90 deg) Double Swallow Small Bites and Sips Alternate Liquids/Solids Rate of Ingestion Change Avoid Specific Foods Supervision While Eating and Drinking for Safe Swallow: Intermittent Supervision Foods to Avoid: Hard, difficult to chew solids Swallowing Recommended Treatments: Compens. Strategy Educat. Recommendation for Speech: Inpatient Speech Therapy Comment: Pt continues to tolerate NDD3 with thins without overt s/s of aspiration, no changes made. SEAM RUBBING MACHINE OPERATOR to followup as indicated Frequency/Duration: Date Range for Service Req: Timeline to reassess: Trim Setter Helper Clinican/Clinical Fellow: No Supervisory Statement: I have reviewed and agree with the student/clinical fellow's documentation: N/A Speech Language Pathologist: Viridiana Crouch M.S., CCC-SEAM RUBBING MACHINE OPERATOR
[2024-08-10 13:16] VITALS: BP 77/47; PULSE 51; RESP 16; TEMP 36.6; O2SAT 96
[2024-08-10 14:12] VITALS: BP 96/55; PULSE 52
--- NOTE | 2024-08-10 15:13 | MHC.CM.ED ---
Patient remains in ER overflow. [facility] received insurance auth. Alert BLS booked for 6pm. Patient, Jose Antonio ROSSI and Claudia LYNCH aware. Patient is active with [facility] and will be made aware. Continue to monitor for d/c needs.
== END 2024-08-10 16:40 | disposition other institution (70) ==
PROVIDERS: Physician Assistant Medical; Emergency Provider Emergency Medicine; PCP Physician Assistant
DX: K59.00 Constipation, unspecified (principal); I50.9 Heart failure, unspecified; E11.9 Type 2 diabetes mellitus without complications; Z79.02 Long term (current) use of antithrombotics/antiplatelets; Z79.899 Other long term (current) drug therapy
CPT/HCPCS: 36415; 74176; 80048; 80076; 81001; 82947; 83690; 83880; 84484; 85025; 85610; 85730; 87635; 93005; 96360; 96361; 96374; 97162; 99285

== ENCOUNTER → 2024-08-06 09:36 | Outpatient (BNV) | payer OTHER, SELFPAY | PROVIDERS: Emergency Provider Emergency Medicine; Visit Provider Internal Medicine Cardiovascular Disease | DX: R94.31 Abnormal electrocardiogram [ECG] [EKG] (principal) | CPT/HCPCS: 93010 ==

== ENCOUNTER 2024-10-31 14:54 | Outpatient (AMB) | payer OTHER, SELFPAY ==
[2024-10-31 14:54] VITALS: BP 136/70; PULSE 91; O2SAT 95
--- NOTE | 2024-10-31 14:54 | HO.NEPHOV_ITS ---
Vital Signs 10/31/24 14:54 Weight 222 lb BP 136/70 Blood Pressure Location Lt brachial Position Sitting Pulse 91 Pulse Source Pulse Oximeter Pulse Oximetry (%) 95 Oxygen Delivery Method Room Air Intake Visit Reasons: ENP: Essential hypertension Production Bow Maker Required: No Accompanied by: Family/Other Allergies hydrochlorothiazide Allergy (Unknown, Verified 10/31/24 15:01) Unknown No Known Drug Allergies Allergy (Unknown, Verified 10/31/24 14:57) NONE Medication List - Last Reconciled 10/31/24 by Eb Sauceda MD amlodipine 10 mg PO DAILY clonidine HCl 0.3 mg PO BID clopidogrel 75 mg PO DAILY cyanocobalamin (vitamin B-12) 1,000 mcg PO DAILY furosemide 40 mg PO DAILY glucose 8 grams PO USEASDIRECTD PRN insulin glargine-yfgn 40 units subcut DAILY losartan 100 mg PO DAILY sennosides (senna) 8.6 mg PO DAILY PRN tamsulosin 0.4 mg PO BEDTIME HPI Comments Details: Kglztv-nllvz-tqwp-old man with a history of hypertension and malignant neoplasm of the prostate along with diabetes mellitus referred for evaluation of CKD. In 08/17/2024 he had a serum creatinine 1.53 with EGFR of 43 mL/minute. Today he has no specific complaints. According to caregiver he has been noncompliant with his insulin. [facility] Medical History Congestive heart failure Type 2 diabetes mellitus Coronary artery disease Surgical History Hx of CABG Social History Household Members: Unknown / Unable to assess Housing: Unknown / Unable to assess Patient Tobacco Use Status: Tobacco use Unknown Review of Systems Const Denies fever(s) and Denies weight loss Card Denies chest pain Resp Denies cough and Denies hemoptysis GI Denies abdominal pain, Denies diarrhea and Denies nausea Musc Denies back pain Neuro Denies focal weakness Physical Exam Vital Signs: Last Vital Signs Pulse 91 10/31/24 14:54 BP 136/70 10/31/24 14:54 Pulse Ox 95 10/31/24 14:54 Oxygen Delivery Method Room Air 10/31/24 14:54 Comfortable Neck supple no JVD. Lungs entry equal no rales. Heart S1-S2 heard no gallop or rub. Abdomen soft nontender. Neuro alert awake oriented. No asterixis. Extremities 1+ edema. Results Reviewed Nephrology Results: Hgb 14.3 g/dl (14.0-18.0) 08/06/24 WBC 9.1 X10*3/uL (4.8-10.8) 08/06/24 Plt Count 214 X10*3/uL (160-400) 08/06/24 Sodium 139 mmol/L (135-145) 08/06/24 Potassium 4.3 mmol/L (3.3-5.1) 08/06/24 Chloride 104 mmol/L (96-108) 08/06/24 Carbon Dioxide 24 mmol/L (22-29) 08/06/24 BUN 24 mg/dL (9-16) H 08/06/24 Creatinine 1.58 mg/dL (0.5-1.4) H 08/06/24 Calcium 9.2 mg/dL (8.4-10.2) 08/06/24 Urine Protein 100 (2+) mg/dL (Neg-Trace) H 08/06/24 Assessment & Plan Assessment & Plan (1) CKD (chronic kidney disease): Code(s): N18.9 - Chronic kidney disease, unspecified Category: Medical Plan Elderly man with a history of prostate CA diabetes mellitus hypertension with CKD. Baseline serum creatinine is unknown at this time. Serum creatinine was between 1.5 and 1.6 mg/dL back in 07/17/2024. CT scan in June did not reveal any obstruction. He had simple cyst otherwise unremarkable. Urine studies in June showed minimal proteinuria without any hematuria. Different diagnosed with chronic kidney disease would include diabetic hypertensive kidney disease. No evidence of obstruction. Glomerular nephritis/interstitial nephritis seem unlikely based on the available lab data. Recommendations Check repeat urinalysis along with a urine protein creatinine ratio. Follow renal function Obtain basic serological studies. Obtain renal ultrasonogram Goal is to maintain blood pressure less than 130/80 Continue to avoid nephrotoxic agents including NSAIDs. Encouraged him to stand low-sodium diet. Maintain hemoglobin A1c less than 7%. He would benefit from SGLT2 inhibitors. Further workup will be determined based on the outcome of the baseline investigations. Orders: Orders Comprehensive Met. Panel Today N18.9 - Chronic kidney disease, unspecified Creatinine Urine Today N18.9 - Chronic kidney disease, unspecified Parathyroid Hormone Intact Today N18.9 - Chronic kidney disease, unspecified Total Protein Urine Random Today N18.9 - Chronic kidney disease, unspecified US renal BI Today I10 - Essential (primary) hypertension, N18.9 - Chronic kidney disease, unspecified Complete Blood Count Auto Diff Today N18.9 - Chronic kidney disease, unspecified Vitamin D 25-OH Total Today N18.9 - Chronic kidney disease, unspecified UA and rflx microscopic Today N18.9 - Chronic kidney disease, unspecified Coding Level of Care Code New Pt Level 5 (76808) Diagnoses CKD (chronic kidney disease) N18.9
--- OUTSIDE RECORDS SUMMARY | 2024-10-31 16:28 | XMS_ITS ---
Author Organization [facility] [address] Address Unknown Medications Medication Dose Frequency Directions Start Date End Donovan e Acetaminophen Tablet 325 MG 2 {tbl} Give 2 tablet by eugenia th every 4 hours as needed for Mild Pain More than 3 doses in 48 hours, notify physician/advanced practice provider(CLAUDE).Do not exceed 3g/day. (standing order) 08/08/2024 Acetaminophen Tablet 325 MG 2 {tbl} Give 2 tablet by eugenia th every 6 hours as needed for Temp 100F or above Notify Physician/Advanced Practice provider. Do not exceed 3g/day 08/08/2024 Milk of Magnesia Suspension 400 MG/5ML 30 mL Give 30 ml by mout h as needed for Constipation give at bedtime if no BM in 3 days 08/08/2024 Saline Laxative Enema 1 {Dose} Insert 1 dose rectally as needed for Constipation if no result from Dulcolax within 2 hours. If no results from Saline laxative enema, call MD/advanced practice provider (CLAUDE) for further orders. 08/08/2024 Dulcolax Suppository 10 MG 1 Insert 1 suppository rectally as needed for Constipation if no result from MOM by next shift 08/08/2024 Amiodarone HCl Oral Tablet 200 MG 1 {tbl} 24 h Give 1 tablet by eugenia th one time a day for HTN 08/09/2024 Clopidogrel Bisulfate Oral Tablet 75 MG 1 {tbl} 24 h Give 1 tablet by eugenia th one time a day for CAD 08/09/2024 cloNIDine HCl Oral Tablet 0.3 MG 1 {tbl} 12 h Give 1 tablet by eugenia th two times a day for HTN 08/09/2024 amLODIPine Besylate Oral Tablet 10 MG 1 {tbl} 24 h Give 1 tablet by eugenia th one time a day for HTN 08/09/2024 Cyanocobalamin Tablet 1000 MCG 1 {tbl} 24 h Give 1 tablet by eugenia th one time a day for B-12 deficiency 08/09/2024 Gabapentin Oral Capsule 100 MG 1 {Capsule} 12 h Give 1 capsule by mouth two times a day for neuropathy 08/09/2024 Insulin Glargine Subcutaneous Solution Pen-injector 100 UNIT/ML 40 24 h Inject 40 unit subcutaneously one time a day for DM II 08/09/2024 Losartan Potassium Oral Tablet 100 MG 1 {tbl} 24 h Give 1 tablet by eugenia th one time a day for HTN 08/09/2024 Metoprolol Succinate ER Oral Tablet Extended Release 24 Hour 50 MG 1 {tbl} 24 h Give 1 tablet by eugenia th one time a day for HTN HOLD FOR SBP less than 112 and Pulse less than 60 08/09/2024 Tamsulosin HCl Oral Capsule 0.4 MG 1 {Capsule} 24 h Give 1 capsule by mouth one time a day for BPH 08/09/2024 Pravastatin Sodium Oral Tablet 40 MG 1 {tbl} 24 h Give 1 tablet by eugenia th one time a day for HLD 08/09/2024 Insta-Glucose Gel 77.4 % 1 {Dose} Give 1 dose by mouth as needed for BG less than 70, Pt arousable conscious and able to swallow Hold all diabetic medications until provider authorizes resumption. Remain with pt. Keep pt.in bed/chair for safety. Repeat blood glucose in 15 min. 08/10/2024 Insta-Glucose Gel 77.4 % 1 {Dose} Give 1 dose by mouth as needed for BG less than 70, Pt arousable conscious and able to swallow If repeat blood glucose is below 70mg/dl and pt is arousable, conscious and able to swallow. Continue to hold all diabetic medications until provider authorizes resumption. Remain with pt. Keep pt.in bed/chair for safety. 08/10/2024 Glucagon Emergency Kit 1 MG 1 mg Inject 1 mg intramuscularly as needed for BG less than 70, Not arousable conscious or able to swallow Hold all diabetic meds until provider authorizes resumption, remain with pt.and keep in bed/chair for safety. Repeat blood glucose in 15 min 08/10/2024 Glucagon Emergency Kit 1 MG 1 mg Inject 1 mg intramuscularly as needed for BG less than 70, Not arousable conscious or able to swallow If repeat blood glucose is below 70mg/dl and pt is NOT arousable, conscious or able to swallow. Continue to hold all diabetic medications until provider authorizes resumption. Remain with pt. Keep pt. in bed/chair for safety. 08/10/2024 Sennosides Oral Tablet 8.6 MG 1 {tbl} Give 1 tablet by eugenia th every 24 hours as needed for constipation 08/11/2024 Furosemide Tablet 20 MG 1 {tbl} 24 h Give 1 tablet by eugenia th one time a day for cardiac health 08/12/2024 Lidocaine External Patch 5 % Apply to Right lower back topically in the morning for pain 08/12/2024 Lidocaine External Patch Apply to remove topically at bedtime for pain 08/12/2024 Medications Administered Medication Dose Frequency Status Start Date End Date Acetaminophen Tablet 325 MG 2 {tbl} Acetaminophen Tablet 325 MG 2 {tbl} Milk of Magnesia Suspension 400 MG/5ML 30 mL 08/13/2024 Saline Laxative Enema 1 {Dose} 08/08/20 24 Dulcolax Suppository 10 MG 1 07/2024 Amiodarone HCl Oral Tablet 200 MG 1 {tbl} 24 h 08/13/2024 Clopidogrel Bisulfate Oral T ablet 75 MG 1 {tbl} 24 h 08/13/2024 cloNIDine HCl Oral Tablet 0.3 MG 1 {tbl} 12 h 08/13/2024 amLODIPine Besylate Oral Tab let 10 MG 1 {tbl} 24 h 08/13/2024 Cyanocobalamin Tablet 1000 MCG 1 {tbl} 24 h 08/13/2024 Gabapentin Oral Capsule 100 MG 1 {Capsule} 12 h 08/13/2024 Insulin Glargine Subcutaneou s Solution Pen-injector 100 UNIT/ML 40 24 h 024 Losartan Potassium Oral Tabl et 100 MG 1 {tbl} 24 h 08/13/2024 Metoprolol Succinate ER Oral Tablet Extended Release 24 Hour 50 MG 1 {tbl} 24 h 08/13/2024 Tamsulosin HCl Oral Capsule 0.4 MG 1 {Capsule} 24 h 08/13/2024 Pravastatin Sodium Oral Tabl et 40 MG 1 {tbl} 24 h 08/13/2024 Insta-Glucose Gel 77.4 % 1 {Dose} 08/10 Insta-Glucose Gel 77.4 % 1 {Dose} 08/10 Glucagon Emergency Kit 1 MG 1 mg Glucagon Emergency Kit 1 MG 1 mg Sennosides Oral Tablet 8.6 MG 1 {tbl} 08/11/2024 Furosemide Tablet 20 MG 1 {tbl} 24 h 2023 Lidocaine External Patch 5 % Refused 1 10/13/2023 Lidocaine External Patch 08/13 Problems Problem Status Start Date End Date ACUTE RESPIRATORY FAILURE WI TH HYPOXIA (Primary) (J96.01 - ICD-10-CM) RESOLVED 07/06/2024 08/02/2024 ATHEROSCLEROTIC HEART DISEAS E OF [place] CORONARY ARTERY WITHOUT ANGINA PECTORIS (Primary) (I25.10 - ICD-10-CM) ACTIVE 07/06/2024 UNSPECIFIED ABDOMINAL PAIN (R10.9 - ICD-10-CM) ACTIVE 08/10/2024 ACUTE BRONCHITIS DUE TO RHINOVIRUS (J20.6 - ICD-10-CM) RESOLVED 07/06/2024 08/02/2024 DYSPHAGIA, ORAL PHASE (R13.11 - ICD-10-CM) ACTIVE 08/10/2024 OTHER VIRAL INFECTIONS OF UN SPECIFIED SITE (B34.8 - ICD-10-CM) RESOLVED 07/06/2024 08/02/2024 ACUTE KIDNEY FAILURE, UNSPECIFIED (N17.9 - ICD-10-CM) RESOLVED 07/06/2024 08/02/2024 TYPE 2 DIABETES MELLITUS WIT H DIABETIC NEUROPATHY, UNSPECIFIED (E11.40 - ICD-10-CM) ACTIVE 07/06/2024 CHRONIC OBSTRUCTIVE PULMONAR Y DISEASE, UNSPECIFIED (J44.9 - ICD-10-CM) ACTIVE 08/10/2024 LOW BACK PAIN, UNSPECIFIED (M54.50 - ICD-10-CM) ACTIVE 08/11/2024 UNSPECIFIED SYSTOLIC (CONGES TIVE) HEART FAILURE (I50.20 - ICD-10-CM) RESOLVED 08/10/2024 08/10/2024 CHRONIC DIASTOLIC (CONGESTIV E) HEART FAILURE (I50.32 - ICD-10-CM) ACTIVE 08/10/2024 HEART FAILURE, UNSPECIFIED (I50.9 - ICD-10-CM) RESOLVE D 07/06/2024 08/02/2024 ESSENTIAL (PRIMARY) HYPERTENSION (I10 - ICD-10-CM) ACT JHON 07/06/2024 BENIGN PROSTATIC HYPERPLASIA WITHOUT LOWER URINARY TRACT SYMPTOMS (N40.0 - ICD-10-CM) ACTIVE 07/06/2024 CHRONIC KIDNEY DISEASE, UNSP ECIFIED (N18.9 - ICD-10-CM) ACTIVE 08/10/2024 UNSTEADINESS ON FEET (R26.81 - ICD-10-CM) RESOLVED 07/07/2024 08/02/2024 UNSTEADINESS ON FEET (R26.81 - ICD-10-CM) ACTIVE 08/11/2024 MUSCLE WEAKNESS (GENERALIZED) (M62.81 - ICD-10-CM) RES OLVED 07/07/2024 08/02/2024 SHORTNESS OF BREATH (R06.02 - ICD-10-CM) RESOLVED 07/07/2024 08/02/2024 Encounters Encounter Performer Performer Role Encounter Diagnoses Location Date Discharge - Discharged to home or self care - [facility] [address] - senior [facility] [address] 07/06/2024 01:19 pm EDT - 08/02/2024 01:01 pm EST Discharge - Discharged to home or self care - _End of bed hold - Other [facility] [address] 08/10/2024 04:48 pm EST - 08/13/2024 04:30 pm EST Immunizations Vaccine Date TB 2 Step Mantoux Skin Test TB 2 Step [facility] Skin Test 07/15/2024 1 2:00 am EDT TB 2 Step [facility] Skin Test TB 2 Step [facility] Skin Test 07/06/2024 1 0:10 pm EDT 6741-2140 Influenza FLUAD Trivalent CVX 168 Pneumococcal conjugate PCV20 [id number] Social History Vital Signs Vital Sign Reading Time Taken painLevel 0 {score} 08/13/2024 04:24 pm EST painLevel 0 {score} 08/13/2024 11:25 am EST painLevel 0 {score} 08/13/2024 12:10 am EST painLevel 0 {score} 08/12/2024 04:28 pm EST painLevel 0 {score} 08/12/2024 03:43 pm EST painLevel 0 {score} 08/11/2024 07:51 pm EST painLevel 8 {score} 08/11/2024 01:58 pm EST oxygenSaturation 98 % 08/13/2024 10:0 1 am EST oxygenSaturation 94 % 08/13/2024 05:4 1 am EST oxygenSaturation 93 % 08/13/2024 04:4 0 am EST oxygenSaturation 95 % 08/12/2024 04:2 8 pm EST oxygenSaturation 95 % 08/12/2024 12:2 9 pm EST oxygenSaturation 96 % 08/11/2024 09:3 1 pm EST oxygenSaturation 94 % 08/11/2024 10:4 4 am EST oxygenSaturation 93 % 08/11/2024 08:1 1 am EST heartrate 70 /min 08/13/2024 10:01 am EST heartrate 54 /min 08/13/2024 05:41 am EST heartrate 50 /min 08/13/2024 04:40 am EST heartrate 51 /min 08/12/2024 04:28 pm EST heartrate 58 /min 08/12/2024 08:57 am EST heartrate 55 /min 08/11/2024 09:29 pm EST heartrate 58 /min 08/11/2024 01:29 pm EST heartrate 58 /min 08/11/2024 09:04 am EST heartrate 50 /min 08/11/2024 08:11 am EST temperature 97.7 [degF] 08/13/2024 10:01 am EST temperature 97.8 [degF] 08/13/2024 05:41 am EST temperature 97.8 [degF] 08/13/2024 04:40 am EST temperature 97.9 [degF] 08/12/2024 04:28 pm EST temperature 97.6 [degF] 08/12/2024 12:29 pm EST temperature 97.8 [degF] 08/11/2024 09:30 pm EST temperature 97.8 [degF] 08/11/2024 09:29 pm EST temperature 97.4 [degF] 08/11/2024 10:44 am EST systolicValue 124 mm[Hg] 08/13/2024 10:01 am EST diastolicValue 60 mm[Hg] 08/13/2024 10:01 am EST systolicValue 144 mm[Hg] 08/13/2024 05:41 am EST diastolicValue 64 mm[Hg] 08/13/2024 05:41 am EST systolicValue 125 mm[Hg] 08/13/2024 04:40 am EST diastolicValue 63 mm[Hg] 08/13/2024 04:40 am EST systolicValue 134 mm[Hg] 08/12/2024 04:28 pm EST diastolicValue 62 mm[Hg] 08/12/2024 04:28 pm EST systolicValue 128 mm[Hg] 08/12/2024 08:57 am EST diastolicValue 78 mm[Hg] 08/12/2024 08:57 am EST systolicValue 122 mm[Hg] 08/11/2024 09:29 pm EST diastolicValue 59 mm[Hg] 08/11/2024 09:29 pm EST systolicValue 124 mm[Hg] 08/11/2024 01:29 pm EST diastolicValue 61 mm[Hg] 08/11/2024 01:29 pm EST systolicValue 124 mm[Hg] 08/11/2024 09:04 am EST diastolicValue 61 mm[Hg] 08/11/2024 09:04 am EST respirations 18 /min 08/13/2024 10:01 am EST respirations 22 /min 08/13/2024 05:41 am EST respirations 20 /min 08/13/2024 04:40 am EST respirations 18 /min 08/12/2024 04:28 pm EST respirations 18 /min 08/12/2024 12:29 pm EST respirations 18 /min 08/11/2024 09:30 pm EST respirations 18 /min 08/11/2024 10:44 am EST bloodSugar 80 mg/dL 08/13/2024 05:57 am EST bloodSugar 284 mg/dL 08/11/2024 09:31 pm EST bloodSugar 81 mg/dL 08/11/2024 09:01 am EST
--- OUTSIDE RECORDS SUMMARY | 2024-10-31 16:28 | XMS_ITS | Clinical Summary ---
Author Organization 299 [facility] Address [address] [place] [address] Phone Care Team Providers Care Rn Women Services Name Role Phone Ember Guerra MD Primary Care Provider [phone] Encounters Date Type Department Care Team Description 08/11/2024 Lab Requisition [facility] [address] [facility] [place] [address] Ember Guerra MD Vitamin D deficiency, unspecified; Other viral infections of unspecified site; Unsteadiness on feet; Muscle weakness (generalized); Acute kidney failure, unspecified (CMS/HCC); Shortness of breath; Atherosclerotic heart disease of hopi coronary artery without angina pectoris; Essential (primary) hypertension; 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) 07/30/2024 Lab Requisition [facility] Lab [address] [place] [address] Ember Guerra MD Other viral infections of unspecified site from Last 3 Months Surgical History Surgery Date Site/Laterality Comments 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; 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 CHOLECYSTECTOMY PROCEDURE: HISTORICAL CHOLECYSTECTOMY FLEXIBLE SIGMOIDOSCOPY 07/30/2005 PROCEDURE: AK SIGMOIDOSCOPY FLX DX W/COLLJ SPEC BR/WA IF PFRMD; COMMENT: diverticulosis; otherwise neg to 70 cm FLEXIBLE SIGMOIDOSCOPY 06/17/2011 PROCEDURE: AK SIGMOIDOSCOPY FLX DX W/COLLJ SPEC BR/WA IF PFRMD; COMMENT: negative to 35 cm, tics Medical History Medical History Date Comments Prostate cancer (CMS/HCC) 08/07/2008 DX:Pro state cancer (HCC) Ventricular tachycardia (CMS/HCC) 09/12/2009 DX:Ventricular tachycardia (HCC) Family History Medical History Relation Name Comments Other: at 72 Father question p eptic ulcer Other: at 89 Mother diabetes Relation Name Status Comments Father Mother Social History Tobacco Use Types Packs/Day Years Used Date Smoking Tobacco: Never Smokeless Tobacco: Never Alcohol Use Standard Drinks/Week Comments No 0 (1 standard drink = 0.6 oz pur e alcohol) Sex and Gender Information Value Date Recorded Sex Assigned at Not on file Gender Identity Not on file Sexual Orientation Not on file Obstetrics History Plan of Treatment Health Maintenance Due Date Last Done Comments Diabetes: Annual Foot Exam 1950 Diabetes: Annual Retina Eye Exam 1950 Zoster Vaccines (1 of 2) 1991 RSV Immunization Patients 60+ Years Old (1 - 1-dose 75+ series) 01/07/2016 DTaP,Tdap,and Td Vaccines (2 - Td or Tdap) 01/25/2019 01/25/2009 COVID-19 Vaccine ( - season) 2024 Influenza Vaccine (#1) 2024 8, 06/25/2015, 08/30/2014, Additional history exists Cholesterol Screening (Lipid Panel) 08/11/2024 Colorectal Cancer Screening: Colonoscopy 08/11/2024 Depression Screening 08/11/2024 Diabetes: Annual Urine Albumin-Creatinine Ratio (uACR) 08/11/2024 Falls Risk Assessment 08/11/2024 Social Influencers of Health Screening 08/11/2024 Diabetes: Blood Sugar Control Test (HGBA1C) 02/08/2025 08/11/2024 Diabetes: Annual GFR (Glomerular Filtration Rate) 08/11/2025 08/11/2024, 08/01/2024 Hypertension/CHF/CAD Annual BMP Blood Test 08/11/2025 08/11/2024, 08/01/2024 Pneumococcal Vaccine: 65+ Years Completed 03/06/2015, 03/15/2010 HIB Vaccines Aged Out No longer eligi ble based on patient's age to complete this topic HPV Vaccines Aged Out No longer eligi ble based on patient's age to complete this topic Hepatitis A Vaccines Aged Out No long er eligible based on patient's age to complete this topic Hepatitis B Vaccines Aged Out No long er eligible based on patient's age to complete this topic IPV Vaccines Aged Out No longer eligi ble based on patient's age to complete this topic MMR Vaccines Aged Out No longer eligi ble based on patient's age to complete this topic Meningococcal ACWY Vaccine Aged Out N o longer eligible based on patient's age to complete this topic RSV Immunization Patients Under 20 months Aged Out No longer eligible based on patient's age to complete this topic Varicella Vaccines Aged Out No longer eligible based on patient's age to complete this topic Procedures Procedure Name Priority Date/Time Associated Diagnosis Comments HEMOGLOBIN A1C Routine 08/11/2024 6:08 AM EST Vitamin D deficiency, unspecified Other viral infections of unspecified site Unsteadiness on feet Muscle weakness (generalized) Acute kidney failure, unspecified (CMS/HCC) Shortness of breath Atherosclerotic heart disease of hopi coronary artery without angina pectoris Essential (primary) 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) VITAMIN D 25 HYDROXY Routine 08/11/2024 6:08 AM EST Vitamin D deficiency, unspecified Other viral infections of unspecified site Unsteadiness on feet Muscle weakness (generalized) Acute kidney failure, unspecified (CMS/HCC) Shortness of breath Atherosclerotic heart disease of hopi coronary artery without angina pectoris Essential (primary) 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) FOLATE Routine 08/11/2024 6:08 AM EST Vitamin D deficiency, unspecified Other viral infections of unspecified site Unsteadiness on feet Muscle weakness (generalized) Acute kidney failure, unspecified (CMS/HCC) Shortness of breath Atherosclerotic heart disease of hopi coronary artery without angina pectoris Essential (primary) 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) VITAMIN B12 Routine 08/11/2024 6:08 AM EST Vitamin D deficiency, unspecified Other viral infections of unspecified site Unsteadiness on feet Muscle weakness (generalized) Acute kidney failure, unspecified (CMS/HCC) Shortness of breath Atherosclerotic heart disease of hopi coronary artery without angina pectoris Essential (primary) 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) THYROID STIMULATING HORMONE Routine 08/11/2024 6:08 AM EST Vitamin D deficiency, unspecified Other viral infections of unspecified site Unsteadiness on feet Muscle weakness (generalized) Acute kidney failure, unspecified (CMS/HCC) Shortness of breath Atherosclerotic heart disease of hopi coronary artery without angina pectoris Essential (primary) 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) COMPREHENSIVE METABOLIC PANEL Routine 08/11/2024 6:08 AM EST Vitamin D deficiency, unspecified Other viral infections of unspecified site Unsteadiness on feet Muscle weakness (generalized) Acute kidney failure, unspecified (CMS/HCC) Shortness of breath Atherosclerotic heart disease of hopi coronary artery without angina pectoris Essential (primary) 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) COMPLETE BLOOD COUNT Routine 08/11/2024 6:08 AM EST Vitamin D deficiency, unspecified Other viral infections of unspecified site Unsteadiness on feet Muscle weakness (generalized) Acute kidney failure, unspecified (CMS/HCC) Shortness of breath Atherosclerotic heart disease of hopi coronary artery without angina pectoris Essential (primary) 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) TRAVEL PHLEBOTOMY FEE Routine 08/01/2024 7:28 AM EST Other viral infections of unspecified site BASIC METABOLIC PANEL Routine 08/01/2024 7:28 AM EST Other viral infections of unspecified site COMPLETE BLOOD COUNT Routine 08/01/2024 7:28 AM EST Other viral infections of unspecified site from Last 3 Months Results * (ABNORMAL) Vitamin D 25 hydroxy (08/11/2024 6:08 AM EST) Vit D, 25-Hydroxy 21.0(L) 30.0 - 80.0 ng/mL LAB CHEMISTRY METHOD 08/11/2024 9:02 AM EST [facility] Blood Venous blood specimen / Unknown Venipuncture / Unknown 08/11/2024 6:08 AM EST 08/11/2024 7:48 AM EST Ember Guerra MD LAB BLOOD ORDERABLES [facility] [address] [place] [address], * (ABNORMAL) Complete blood count (08/11/2024 6:08 AM EST) Only the most recent of2 resultswithin the time period is included. WBC 9.6 4.8 - 10.8 K/mcL LAB HEMETOLOGY METHOD 08/11/2024 8:13 AM [facility] RBC 5.00 4.50 - 5.50 M/mcL LAB HEMETOLOGY METHOD 08/11/2024 8:13 AM [facility] Hemoglobin 13.2(L) 13.5 - 17.5 g/dL LAB HEMETOLOGY METHOD 08/11/2024 8:13 AM [facility] Hematocrit 41.1(L) 42.0 - 54.0 % LAB HEMETOLOGY METHOD 08/11/2024 8:13 AM [facility] MCV 82.7 79.0 - 98.0 FL LAB HEMETOLOGY METHOD 08/11/2024 8:13 AM [facility] MCH 26.6(L) 27.0 - 32.0 pcg LAB HEMETOLOGY METHOD 08/11/2024 8:13 AM [facility] MCHC 32.1 32.0 - 37.0 g/dL LAB HEMETOLOGY METHOD 08/11/2024 8:13 AM EST [facility] RDW 14.5 11.0 - 15.0 % LAB HEMETOLOGY METHOD 08/11/2024 8:13 AM [facility] Platelets 204 130 - 400 K/mcL LAB HEMETOLOGY METHOD 08/11/2024 8:13 AM [facility] MPV 11.0 7.0 - 11.0 FL LAB HEMETOLOGY METHOD 08/11/2024 8:13 AM [facility] NRBC 0.0 <1.0 % LAB HEMETOLOGY METHOD 08/11/2024 8:13 AM EST [facility] NRBC Absolute 0.00 <0.10 K/[facility] LAB HEMETOLOGY METHOD 08/11/2024 8:13 AM EST [facility] Blood Venous blood specimen / Unknown Venipuncture / Unknown 08/11/2024 6:08 AM EST 08/11/2024 7:48 AM EST Ember Guerra MD LAB BLOOD ORDERABLES [facility] [address] [place] [address], * (ABNORMAL) Thyroid stimulating hormone (08/11/2024 6:08 AM EST) TSH 4.68(H) 0.40 - 4.00 mcIU/mL LAB CHEMISTRY METHOD 08/11/2024 9:03 AM EST [facility] Blood Venous blood specimen / Unknown Venipuncture / Unknown 08/11/2024 6:08 AM EST 08/11/2024 7:48 AM EST Ember Guerra MD LAB BLOOD ORDERABLES [facility] [address] [place] [address], * (ABNORMAL) Hemoglobin A1c (08/11/2024 6:08 AM EST) Hemoglobin A1C 9.2(H) <6.5 % LAB CHEMISTRY METHOD 08/11/2024 10:54 AM EST [facility] Mean Bld Glu Estim. 217 mg/dL LAB CHEMISTRY METHOD 08/11/2024 10:54 AM EST [facility] Blood Venous blood specimen / Unknown Venipuncture / Unknown 08/11/2024 6:08 AM EST 08/11/2024 7:48 AM EST Ember Guerra MD LAB BLOOD ORDERABLES Performing Organization Address [facility] de Phone Number [facility] [address] [place] [address], [place] [phone] * Folate (08/11/2024 6:08 AM EST) [facility] Folate 11.8 2.8 - 17.0 ng/ml LAB CHEMISTRY METHOD 08/11/2024 9:01 AM EST [facility] Blood Venous blood specimen / Unknown Venipuncture / Unknown 08/11/2024 6:08 AM EST 08/11/2024 7:48 AM EST Ember Guerra MD LAB BLOOD ORDERABLES Performing Organization Address [facility] de Phone Number [facility] [address] [place] [address], [place] [phone] * (ABNORMAL) Vitamin B12 (08/11/2024 6:08 AM EST) [facility] Vitamin B-12 963(H) 250 - 900 pcg/mL LAB CHEMISTRY METHOD 08/11/2024 9:01 AM EST [facility] Blood Venous blood specimen / Unknown Venipuncture / Unknown 08/11/2024 6:08 AM EST 08/11/2024 7:48 AM EST Ember Guerra MD LAB BLOOD ORDERABLES Performing Organization Address [facility] de Phone Number [facility] [address] [place] [address], [place] [phone] * (ABNORMAL) Comprehensive metabolic panel (08/11/2024 6:08 AM EST) [facility] Sodium 139 133 - 145 mmol/L LAB CHEMISTRY METHOD 08/11/2024 8:38 AM [facility] Potassium 3.9 3.5 - 5.5 mmol/L LAB CHEMISTRY METHOD 08/11/2024 8:38 AM [facility] Chloride 106 96 - 110 mmol/L LAB CHEMISTRY METHOD 08/11/2024 8:38 AM [facility] CO2 25 21 - 32 mmol/L LAB CHEMISTRY METHOD 08/11/2024 8:38 AM [facility] Anion Gap 8 3 - 11 LAB CHEMISTRY METHOD 08/11/2024 8:38 AM [facility] Glucose 80 70 - 100 mg/dL LAB CHEMISTRY METHOD 08/11/2024 8:38 AM [facility] BUN 31(H) 5 - 25 mg/dL LAB CHEMISTRY METHOD 08/11/2024 8:38 AM [facility] Creatinine 1.61(H) 0.70 - 1.30 mg/dL LAB CHEMISTRY METHOD 08/11/2024 8:38 AM [facility] eGFR 42(L) >=60 mL/min/1. 73m2 LAB CHEMISTRY METHOD 08/11/2024 8:38 AM [facility] Comment:Calculation based on the??Chronic Kidney Disease Epidemiology Collaboration (CKD-EPI) equation refit??without adjustment for race. BUN/Creatinine Ratio 19.3 LAB CHEMISTRY METHOD 08/11/2024 8:38 AM [facility] Calcium 8.8 8.5 - 10.5 mg/dL LAB CHEMISTRY METHOD 08/11/2024 8:38 AM [facility] AST (SGOT) 14 10 - 42 unit/L LAB CHEMISTRY METHOD 08/11/2024 8:38 AM [facility] ALT (SGPT) 24 10 - 60 unit/L LAB CHEMISTRY METHOD 08/11/2024 8:38 AM [facility] Alkaline Phosphatase 92 42 - 121 unit/L LAB CHEMISTRY METHOD 08/11/2024 8:38 AM [facility] Total Protein 5.9(L) 6.0 - 8.0 g/dL LAB CHEMISTRY METHOD 08/11/2024 8:38 AM EST [facility] Albumin 3.0(L) 3.2 - 5.0 g/dL LAB CHEMISTRY METHOD 08/11/2024 8:38 AM [facility] Total Bilirubin 0.5 0.0 - 1.4 mg/dL LAB CHEMISTRY METHOD 08/11/2024 8:38 AM [facility] Blood Venous blood specimen / Unknown Venipuncture / Unknown 08/11/2024 6:08 AM EST 08/11/2024 7:48 AM EST Ember Guerra MD LAB BLOOD ORDERABLES Performing Organization Address City/[facility]/ZIP Co de Phone Number [facility] [address] [place] [address], * Travel phlebotomy fee (08/01/2024 7:28 AM EST) [facility] HOME TRAVEL PHLEBOTOMY FEE Completed 08/01/2024 10:01 AM [facility] Blood Venous blood specimen / Unknown Venipuncture / Unknown 08/01/2024 7:28 AM EST 08/01/2024 9:25 AM EST Ember Guerra MD LAB BLOOD ORDERABLES [facility] [address] [place] [address], [place] [phone] * (ABNORMAL) Basic metabolic panel (08/01/2024 7:28 AM EST) [facility] Sodium 138 133 - 145 mmol/L LAB CHEMISTRY METHOD 08/01/2024 10:56 AM [facility] Potassium 4.1 3.5 - 5.5 mmol/L LAB CHEMISTRY METHOD 08/01/2024 10:56 AM [facility] Chloride 103 96 - 110 mmol/L LAB CHEMISTRY METHOD 08/01/2024 10:56 AM [facility] CO2 29 21 - 32 mmol/L LAB CHEMISTRY METHOD 08/01/2024 10:56 AM [facility] Anion Gap 6 3 - 11 LAB CHEMISTRY METHOD 08/01/2024 10:56 AM [facility] Glucose 136(H) 70 - 100 mg/dL LAB CHEMISTRY METHOD 08/01/2024 10:56 AM [facility] BUN 28(H) 5 - 25 mg/dL LAB CHEMISTRY METHOD 08/01/2024 10:56 AM [facility] Creatinine 1.51(H) 0.70 - 1.30 mg/dL LAB CHEMISTRY METHOD 08/01/2024 10:56 AM [facility] eGFR 46(L) >=60 mL/min/1. 73m2 LAB CHEMISTRY METHOD 08/01/2024 10:56 AM [facility] Comment:Calculation based on the??Chronic Kidney Disease Epidemiology Collaboration (CKD-EPI) equation refit??without adjustment for race. BUN/Creatinine Ratio 18.5 LAB CHEMISTRY METHOD 08/01/2024 10:56 AM [facility] Calcium 9.2 8.5 - 10.5 mg/dL LAB CHEMISTRY METHOD 08/01/2024 10:56 AM [facility] Blood Venous blood specimen / Unknown Venipuncture / Unknown 08/01/2024 7:28 AM EST 08/01/2024 9:25 AM EST Ember Guerra MD LAB BLOOD ORDERABLES [facility] [address] [place] [address], from Last 3 Months Care Teams Rn Women Services Relationship Specialty Start Date End Date Ember Guerra MD [address] [facility] [address] [place] [address] PCP - General Geriatric Medicine 08/11/24
--- OUTSIDE RECORDS SUMMARY | 2024-10-31 16:28 | XMS_ITS | Encounter Summary ---
Author Organization [facility] Address [address] [place] [address] Care Team Providers Care Yolk Spray Drier Name Role Phone Ember Guerra MD Primary Care Provider [phone] Encounter Details Date Type Department Care Team (Late st Contact Info) Description 07/30/[address] [facility] Lab [address] [facility] [place] [address] Ember Guerra MD [address] [place] [address] Other viral infections of unspecified site Social History Tobacco Use Types Packs/Day Years Used Date Smoking Tobacco: Never Smokeless Tobacco: Never Alcohol Use Standard Drinks/Week Comments No 0 (1 standard drink = 0.6 oz pur e alcohol) Sex and Gender Information Value Date Recorded Sex Assigned at Not on file Gender Identity Not on file Sexual Orientation Not on file documented as of this encounter Plan of Treatment Not on file documented as of this encounter Procedures Procedure Name Priority Date/Time Associated Diagnosis Comments TRAVEL PHLEBOTOMY FEE Routine 08/01/2024 7:28 AM EST Other viral infections of unspecified site COMPLETE BLOOD COUNT Routine 08/01/2024 7:28 AM EST Other viral infections of unspecified site BASIC METABOLIC PANEL Routine 08/01/2024 7:28 AM EST Other viral infections of unspecified site documented in this encounter Results * Travel phlebotomy fee (08/01/2024 7:28 AM EST) [facility] TRAVEL PHLEBOTOMY FEE Completed 08/01/2024 10:01 AM EST [facility] Blood Venous blood specimen / Unknown Venipuncture / Unknown 08/01/2024 7:28 AM EST 08/01/2024 9:25 AM EST Ember Guerra MD LAB BLOOD ORDERABLES [facility] [address] [place] [address], * (ABNORMAL) Basic metabolic panel (08/01/2024 7:28 AM EST) Sodium 138 133 - 145 mmol/L LAB CHEMISTRY METHOD 08/01/2024 10:56 AM [facility] Potassium 4.1 3.5 - 5.5 mmol/L LAB CHEMISTRY METHOD 08/01/2024 10:56 AM [facility] Chloride 103 96 - 110 mmol/L LAB CHEMISTRY METHOD 08/01/2024 10:56 AM [facility] CO2 29 21 - 32 mmol/L LAB CHEMISTRY METHOD 08/01/2024 10:56 AM [facility] Anion Gap 6 3 - 11 LAB CHEMISTRY METHOD 08/01/2024 10:56 AM [facility] Glucose 136(H) 70 - 100 mg/dL LAB CHEMISTRY METHOD 08/01/2024 10:56 AM [facility] BUN 28(H) 5 - 25 mg/dL LAB CHEMISTRY METHOD 08/01/2024 10:56 AM [facility] Creatinine 1.51(H) 0.70 - 1.30 mg/dL LAB CHEMISTRY METHOD 08/01/2024 10:56 AM [facility] eGFR 46(L) >=60 mL/min/1. 73m2 LAB CHEMISTRY METHOD 08/01/2024 10:56 AM [facility] Comment:Calculation based on the??Chronic Kidney Disease Epidemiology Collaboration (CKD-EPI) equation refit??without adjustment for race. BUN/Creatinine Ratio 18.5 LAB CHEMISTRY METHOD 08/01/2024 10:56 AM [facility] Calcium 9.2 8.5 - 10.5 mg/dL LAB CHEMISTRY METHOD 08/01/2024 10:56 AM [facility] Blood Venous blood specimen / Unknown Venipuncture / Unknown 08/01/2024 7:28 AM EST 08/01/2024 9:25 AM EST Ember Guerra MD LAB BLOOD ORDERABLES [facility] [address] [place] [address], * (ABNORMAL) Complete blood count (08/01/2024 7:28 AM EST) WBC 8.0 4.8 - 10.8 K/mcL LAB HEMETOLOGY METHOD 08/01/2024 10:46 AM [facility] RBC 5.10 4.50 - 5.50 M/mcL LAB HEMETOLOGY METHOD 08/01/2024 10:46 AM [facility] Hemoglobin 13.5 13.5 - 17.5 g/dL LAB HEMETOLOGY METHOD 08/01/2024 10:46 AM [facility] Hematocrit 42.8 42.0 - 54.0 % LAB HEMETOLOGY METHOD 08/01/2024 10:46 AM [facility] MCV 83.6 79.0 - 98.0 FL LAB HEMETOLOGY METHOD 08/01/2024 10:46 AM [facility] MCH 26.4(L) 27.0 - 32.0 pcg LAB HEMETOLOGY METHOD 08/01/2024 10:46 AM [facility] MCHC 31.5(L) 32.0 - 37.0 g/dL LAB HEMETOLOGY METHOD 08/01/2024 10:46 AM [facility] RDW 14.4 11.0 - 15.0 % LAB HEMETOLOGY METHOD 08/01/2024 10:46 AM EST [facility] Platelets 242 130 - 400 K/mcL LAB HEMETOLOGY METHOD 08/01/2024 10:46 AM [facility] MPV 11.2(H) 7.0 - 11.0 FL LAB HEMETOLOGY METHOD 08/01/2024 10:46 AM EST [facility] NRBC 0.0 <1.0 % LAB HEMETOLOGY METHOD 08/01/2024 10:46 AM [facility] NRBC Absolute 0.00 <0.10 K/mcL LAB HEMETOLOGY METHOD 08/01/2024 10:46 AM [facility] Blood Venous blood specimen / Unknown Venipuncture / Unknown 08/01/2024 7:28 AM EST 08/01/2024 9:25 AM EST Ember Guerra MD LAB BLOOD ORDERABLES [facility] [address] [place], [place] [address] [phone] documented in this encounter Visit Diagnoses Diagnosis Other viral infections of unspecified site documented in this encounter Care Teams Yolk Spray Drier Relationship Specialty Start Date End Date Ember Guerra MD [address] [place] [address] [address] [place] [address] PCP - General Geriatric Medicine 08/11/24 documented as of this encounter
--- OUTSIDE RECORDS SUMMARY | 2024-10-31 16:28 | XMS_ITS | Encounter Summary ---
Author Organization [facility] Address [address] [place] [address] Care Team Providers Care Flight Operations Dispatch Clerk Name Role Phone Ember Guerra MD Primary Care Provider [phone] Encounter Details Date Type Department Care Team (Late st Contact Info) Description 08/11/2024 Lab Requisition [facility] Lab [address] [place] [address] Ember Guerra MD [address] [place] [address] Vitamin D deficiency, unspecified; Other viral infections of unspecified site; Unsteadiness on feet; Muscle weakness (generalized); Acute kidney failure, unspecified (CMS/HCC); Shortness of breath; Atherosclerotic heart disease of [place] coronary artery without angina pectoris; Essential (primary) hypertension; 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) Social History Tobacco Use Types Packs/Day Years [...] Procedure Name Priority Date/Time Associated Diagnosis Comments VITAMIN D 25 HYDROXY Routine 08/11/2024 6:08 AM EST Vitamin D deficiency, unspecified Other viral infections of unspecified site Unsteadiness on feet Muscle weakness (generalized) Acute kidney failure, unspecified (CMS/HCC) Shortness of breath Atherosclerotic heart disease of [place] coronary artery without angina pectoris Essential (primary) 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) COMPLETE BLOOD COUNT Routine 08/11/2024 6:08 AM EST Vitamin D deficiency, unspecified Other viral infections of unspecified site Unsteadiness on feet Muscle weakness (generalized) Acute kidney failure, unspecified (CMS/HCC) Shortness of breath Atherosclerotic heart disease of [place] coronary artery without angina pectoris Essential (primary) 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) THYROID STIMULATING HORMONE Routine 08/11/2024 6:08 AM EST Vitamin D deficiency, unspecified Other viral infections of unspecified site Unsteadiness on feet Muscle weakness (generalized) Acute kidney failure, unspecified (CMS/HCC) Shortness of breath Atherosclerotic heart disease of [place] coronary artery without angina pectoris Essential (primary) 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) HEMOGLOBIN A1C Routine 08/11/2024 6:08 AM EST Vitamin D deficiency, unspecified Other viral infections of unspecified site Unsteadiness on feet Muscle weakness (generalized) Acute kidney failure, unspecified (CMS/HCC) Shortness of breath Atherosclerotic heart disease of [place] coronary artery without angina pectoris Essential (primary) 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) FOLATE Routine 08/11/2024 6:08 AM EST Vitamin D deficiency, unspecified Other viral infections of unspecified site Unsteadiness on feet Muscle weakness (generalized) Acute kidney failure, unspecified (CMS/HCC) Shortness of breath Atherosclerotic heart disease of [place] coronary artery without angina pectoris Essential (primary) 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) VITAMIN B12 Routine 08/11/2024 6:08 AM EST Vitamin D deficiency, unspecified Other viral infections of unspecified site Unsteadiness on feet Muscle weakness (generalized) Acute kidney failure, unspecified (CMS/HCC) Shortness of breath Atherosclerotic heart disease of [place] coronary artery without angina pectoris Essential (primary) 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) COMPREHENSIVE METABOLIC PANEL Routine 08/11/2024 6:08 AM EST Vitamin D deficiency, unspecified Other viral infections of unspecified site Unsteadiness on feet Muscle weakness (generalized) Acute kidney failure, unspecified (CMS/HCC) Shortness of breath Atherosclerotic heart disease of [place] coronary artery without angina pectoris Essential (primary) hypertension 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/[facility]) documented in this encounter Results * (ABNORMAL) Hemoglobin A1c (08/11/2024 6:08 AM EST) Pathologist [facility] Hemoglobin A1C 9.2(H) <6.5 % LAB CHEMISTRY METHOD 08/11/2024 10:54 AM EST [facility] Mean Bld Glu Estim. 217 mg/dL LAB CHEMISTRY METHOD 08/11/2024 10:54 AM EST [facility] Blood Venous blood specimen / Unknown Venipuncture / Unknown 08/11/2024 6:08 AM EST 08/11/2024 7:48 AM EST Ember Guerra MD LAB BLOOD ORDERABLES Performing Organization Address City/[facility]/ZIP Co de Phone Number [facility] [address] [place] [address], * (ABNORMAL) Vitamin D 25 hydroxy (08/11/2024 6:08 AM EST) [facility] Vit D, 25-Hydroxy 21.0(L) 30.0 - 80.0 ng/mL LAB CHEMISTRY METHOD 08/11/2024 9:02 AM EST [facility] Blood Venous blood specimen / Unknown Venipuncture / Unknown 08/11/2024 6:08 AM EST 08/11/2024 7:48 AM EST Ember Guerra MD LAB BLOOD ORDERABLES [facility] [address] [place] [address], * Folate (08/11/2024 6:08 AM EST) [facility] Folate 11.8 2.8 - 17.0 ng/ml LAB CHEMISTRY METHOD 08/11/2024 9:01 AM EST [facility] Blood Venous blood specimen / Unknown Venipuncture / Unknown 08/11/2024 6:08 AM EST 08/11/2024 7:48 AM EST Ember Guerra MD LAB BLOOD ORDERABLES Performing Organization Address City/[facility]/ZIP Co de Phone Number [facility] [address] [place] [address], [place] [phone] * (ABNORMAL) Vitamin B12 (08/11/2024 6:08 AM EST) Pathologist [facility] Vitamin B-12 963(H) 250 - 900 pcg/mL LAB CHEMISTRY METHOD 08/11/2024 9:01 AM EST [facility] Blood Venous blood specimen / Unknown Venipuncture / Unknown 08/11/2024 6:08 AM EST 08/11/2024 7:48 AM EST Ember Guerra MD LAB BLOOD ORDERABLES Performing Organization Address [facility]/ZIP Co de Phone Number [facility] [address] [place] [address], [place] [phone] * (ABNORMAL) Thyroid stimulating hormone (08/11/2024 6:08 AM EST) Pathologist [facility] TSH 4.68(H) 0.40 - 4.00 mcIU/mL LAB CHEMISTRY METHOD 08/11/2024 9:03 AM EST [facility] Blood Venous blood specimen / Unknown Venipuncture / Unknown 08/11/2024 6:08 AM EST 08/11/2024 7:48 AM EST Ember Guerra MD LAB BLOOD ORDERABLES Performing Organization Address City/[facility]/ZIP Co de Phone Number [facility] [address] [place] [address], [place] [phone] * (ABNORMAL) Comprehensive metabolic panel (08/11/2024 6:08 AM EST) Sodium 139 133 - 145 mmol/L LAB CHEMISTRY METHOD 08/11/2024 8:38 AM [facility] Potassium 3.9 3.5 - 5.5 mmol/L LAB CHEMISTRY METHOD 08/11/2024 8:38 AM [facility] Chloride 106 96 - 110 mmol/L LAB CHEMISTRY METHOD 08/11/2024 8:38 AM [facility] CO2 25 21 - 32 mmol/L LAB CHEMISTRY METHOD 08/11/2024 8:38 AM [facility] Anion Gap 8 3 - 11 LAB CHEMISTRY METHOD 08/11/2024 8:38 AM [facility] Glucose 80 70 - 100 mg/dL LAB CHEMISTRY METHOD 08/11/2024 8:38 AM [facility] BUN 31(H) 5 - 25 mg/dL LAB CHEMISTRY METHOD 08/11/2024 8:38 AM [facility] Creatinine 1.61(H) 0.70 - 1.30 mg/dL LAB CHEMISTRY METHOD 08/11/2024 8:38 AM [facility] eGFR 42(L) >=60 mL/min/1. 73m2 LAB CHEMISTRY METHOD 08/11/2024 8:38 AM [facility] Comment:Calculation based on the??Chronic Kidney Disease Epidemiology Collaboration (CKD-EPI) equation refit??without adjustment for race. BUN/Creatinine Ratio 19.3 LAB CHEMISTRY METHOD 08/11/2024 8:38 AM [facility] Calcium 8.8 8.5 - 10.5 mg/dL LAB CHEMISTRY METHOD 08/11/2024 8:38 AM [facility] AST (SGOT) 14 10 - 42 unit/L LAB CHEMISTRY METHOD 08/11/2024 8:38 AM [facility] ALT (SGPT) 24 10 - 60 unit/L LAB CHEMISTRY METHOD 08/11/2024 8:38 AM [facility] Alkaline Phosphatase 92 42 - 121 unit/L LAB CHEMISTRY METHOD 08/11/2024 8:38 AM [facility] Total Protein 5.9(L) 6.0 - 8.0 g/dL LAB CHEMISTRY METHOD 08/11/2024 8:38 AM [facility] Albumin 3.0(L) 3.2 - 5.0 g/dL LAB CHEMISTRY METHOD 08/11/2024 8:38 AM [facility] Total Bilirubin 0.5 0.0 - 1.4 mg/dL LAB CHEMISTRY METHOD 08/11/2024 8:38 AM [facility] Blood Venous blood specimen / Unknown Venipuncture / Unknown 08/11/2024 6:08 AM EST 08/11/2024 7:48 AM EST Ember Guerra MD LAB BLOOD ORDERABLES [facility] [address] [place] [address], * (ABNORMAL) Complete blood count (08/11/2024 6:08 AM EST) WBC 9.6 4.8 - 10.8 K/mcL LAB HEMETOLOGY METHOD 08/11/2024 8:13 AM [facility] RBC 5.00 4.50 - 5.50 M/[facility] LAB HEMETOLOGY METHOD 08/11/2024 8:13 AM [facility] Hemoglobin 13.2(L) 13.5 - 17.5 g/dL LAB HEMETOLOGY METHOD 08/11/2024 8:13 AM [facility] Hematocrit 41.1(L) 42.0 - 54.0 % LAB HEMETOLOGY METHOD 08/11/2024 8:13 AM [facility] MCV 82.7 79.0 - 98.0 FL LAB HEMETOLOGY METHOD 08/11/2024 8:13 AM EST [facility] MCH 26.6(L) 27.0 - 32.0 pcg LAB HEMETOLOGY METHOD 08/11/2024 8:13 AM [facility] MCHC 32.1 32.0 - 37.0 g/dL LAB HEMETOLOGY METHOD 08/11/2024 8:13 AM EST [facility] RDW 14.5 11.0 - 15.0 % LAB HEMETOLOGY METHOD 08/11/2024 8:13 AM EST [facility] Platelets 204 130 - 400 K/mcL LAB HEMETOLOGY METHOD 08/11/2024 8:13 AM [facility] MPV 11.0 7.0 - 11.0 FL LAB HEMETOLOGY METHOD 08/11/2024 8:13 AM EST [facility] NRBC 0.0 <1.0 % LAB HEMETOLOGY METHOD 08/11/2024 8:13 AM [facility] NRBC Absolute 0.00 <0.10 K/mcL LAB HEMETOLOGY METHOD 08/11/2024 8:13 AM [facility] Blood Venous blood specimen / Unknown Venipuncture / Unknown 08/11/2024 6:08 AM EST 08/11/2024 7:48 AM EST Ember Guerra MD LAB BLOOD ORDERABLES [facility] [address] [place] [address], documented in this encounter Visit Diagnoses Diagnosis Vitamin D deficiency, unspecified Other viral infections of unspecified site Unsteadiness on feet Muscle weakness (generalized) Acute kidney failure, unspecified (CMS/HCC) Acute kidney failure, unspecified Shortness of breath Atherosclerotic heart disease of [place] coronary artery without angina pectoris Essential (primary) hypertension Unspecified essential 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
== END 2024-10-31 15:16 | disposition home or self-care (01) ==
PROVIDERS: PCP Physician Assistant; Referring Provider Physician Assistant; Visit Provider Internal Medicine Hypertension Specialist
DX: I12.9 Hypertensive chronic kidney disease with stage 1 through stage 4 chronic kidney disease, or unspecified chronic kidney disease (principal); E11.22 Type 2 diabetes mellitus with diabetic chronic kidney disease; N18.9 Chronic kidney disease, unspecified
CPT/HCPCS: 99205

== ENCOUNTER 2024-10-31 14:54 | Outpatient (REF) | payer OTHER, SELFPAY ==
[2024-10-31 16:03] LABS: MANUAL DIFF FLAG NO
[2024-10-31 16:22] LABS: Basophils Percent Auto 0.3 % (0-2); Eosinophils Percent Auto 0.3 % (0-4); Hematocrit 47.6 % (42.0-52.0); Hemoglobin 15.8 g/dl (14.0-18.0); Imm Gran Pct Auto 0.9 % (0.0-0.4); Lymphocytes Percent Auto 8.4 % (20-40); Mean Corpuscular HGB Conc 33.2 g/dl (31.0-36.0); Mean Corpuscular Hemoglobin 26.7 pg (27.0-33.0); Mean Corpuscular Volume 80.5 fL (80.0-98.0); Mean Platelet Volume 10.3 fL (9.4-12.4); Monocytes Absolute Auto 0.3 X10*3/uL (0.1-1.2); Monocytes Percent Auto 2.1 % (2-11); Neutrophils Absolute Auto 10.3 x10*3/uL (2.0-8.3); Platelet Count 239 X10*3/uL (160-400); Red Blood Count 5.91 X10*6/uL (4.60-5.80); Red Cell Distribution Width 13.7 % (11.0-16.0); White Blood Count 11.7 X10*3/uL (4.8-10.8)
[2024-10-31 16:42] LABS: Appearance Urine Clear; Color Urine Yellow; Glucose Urine UA Negative (Negative); Leukocyte Esterase Urine Negative (Negative); Nitrite Urine Negative (Negative); UMIC TRIGGER UA YES; Urine Blood Negative (Negative); Urine Ketones Negative (Negative); Urine Protein 30 (1+) mg/dL (Neg-Trace)
[2024-10-31 16:46] LABS: Bacteria Urine None Seen (None Seen); Hyaline Casts Urine 0-2 /LPF (0-2); RBC Urine 0-2 /HPF (0-2); Squamous Epithelial Cell Urine 0-2 /HPF (0-2); WBC Urine 0-5 /HPF (0-5)
--- OUTSIDE RECORDS SUMMARY | 2024-10-31 17:01 | XMS_ITS | Encounter Summary ---
Author Name [facility] Address [address] [place] [id number] Care Team Providers Care Spectroscopist Name Role Phone FORREST GONSALES Primary Care Provider Unavail able Insurance Providers: All historical and current Section Date Range: From patient's date of to the date document was created. This section includes the names of all active insurance providers for the patient. Insurance Provider Type of Coverage Plan Name Start of Policy Coverage End of Policy Coverage Group Number Member ID Insurance Provider's Telephone Number Policy Fernandez's Name Patient's Relationship to Policy Fernandez MEDICARE (WNR) MEDICARE (M) PART B Dec 27, 2005 PART B [id number] [facility] JOSEFINA BUSTILLOS PATIENT MEDICARE (WNR) MEDICARE (M) PART A Dec 27, 2005 PART A [id number] [facility] [phone] JOSEFINA BUSTILLOS PATIENT MEDICARE (WNR) MEDICARE (M) PART B Dec 27, 2005 PART B [id number] [facility] JOSEFINA BUSTILLOS PATIENT Selected Encounter This section includes the information on record at [place] for the Encounter. Date/Time Encounter Type Encounter Description Reason Provider Source Dec 09, 2023 04:10 PM QNHP OL DIG ASSMT&MGMT 21+ CLINICAL PHARMACY ICD-10-CM E11.9 Type 2 diabetes mellitus without complications RYAN GALVAN Encounter Template Text not used by [place] Assessments - Encounter Diagnoses This section includes the primary and secondary diagnoses documented for the Encounter. Date/Time Primary/Secondary Diagnosis Diagnosis Name Provider Source Dec 11, 2023 09:42 AM PRIMARY Type 2 diabetes mellitus without complications MANDYRYAN Martinez [facility] [place] [facility] Plan of Treatment: Future Appointments (+ 6 months) and Future Tests (+/- 45 days) The Plan of Treatment section includes future care activities for the patient from all [place] treatmentfacilities. This section includes future appointments and future orders which are active, pending or scheduled. Future Appointments This section includes appointments that were scheduled to occur 6 months from the date of the Encounter, up to a maximum of 20 appointments. The data comes from all [place] treatment facilities. Appointment Date/Time Appointment Type Appointme nt Facility Name Dec 14, 2023 03:00 PM AMBULATORY - MEDICINE [facility] [place] [facility] Dec 25, 2023 01:00 PM AMBULATORY - MEDICINE [facility] [place] [facility] Jan 04, 2024 01:30 PM AMBULATORY - MEDICINE [facility] [place] [facility] February 01, 2024 02:00 PM AMBULATORY - MEDICINE [facility] [place] [facility] February 08, 2024 03:30 PM AMBULATORY - MEDICINE [facility] [place] [facility] February 15, 2024 02:30 PM AMBULATORY - MEDICINE [facility] [place] [facility] Mar 15, 2024 08:00 AM AMBULATORY - MEDICINE [facility] [place] [facility] Apr 12, 2024 03:30 PM AMBULATORY - MEDICINE [facility] [place] [facility] May 11, 2024 08:00 AM AMBULATORY - MEDICINE [facility] [place] [facility] May 15, 2024 08:00 AM AMBULATORY - MEDICINE [facility] [place] [facility] May 24, 2024 03:30 PM AMBULATORY - MEDICINE [facility] [place] [facility] Lab Results: +/- 30 days of the encounter This section includes the Chemistry and Hematology Lab Results on record with [place] for the patient. Radiology Reports and Pathology Reports are provided separately, in subsequent sections. Lab Results This section contains the Chemistry/Hematology Results that were resulted 30 days before or 30 daysafter the date of the Encounter. Date/Time Source Result Type Result - Unit Interpretation Reference Range Comment Dec 04, 2023 01:44 PM [facility] HEMOGLOBIN A1C PANEL Specimen Type: BLOOD Comment: Values obtained from A1C measurements can vary. For atypical A1C assays, a reported value of 7.0 could actually be between 6.72 and 7.28 if measured by a reference method. A reported value of 9.0 could actually be between 8.73 and 9.27. Ref: http://www.ngs p.org/CAPdata. asp Ordering Provider: KENAN GONSALES F Report Released Date/Time: Oct 21, 2023 11:41 AM Reporting Lab: [address] [address] Performing Lab: [address] [address] HEMOGLOBIN A1C 9.7 H 4.0-5.6 Dec 04, 2023 01:44 PM [facility] MICROALBUMIN CREATININE RATIO PANEL Specimen Type: URINE No comment entered. Ordering Provider: KENAN GONSALES F Report Released Date/Time: Oct 21, 2023 11:41 AM Reporting Lab: [address] [address] Performing Lab: [address] [address] MICROALBUMIN/C REATININE RATIO 321.0 mg/g H 0-29.9 MICROALBUMIN,Q UANTITATIVE 20.2 mg/dL RR UNAVAIL CREATININE URINE 62.93 mg/dL Dec 04, 2023 01:44 PM [facility] LIVER FUNCTION Specimen Type: SERUM Comment: Hemolysis present analysis cannot be performed. Hemolysis present may falsly elevate Potassium Total and Direct Bili, Iron, AST, %Fe. Ordering Provider: KENAN GONSALES Report Released Date/Time: Oct 21, 2023 11:41 AM Reporting Lab: [address] [address] Performing Lab: [address] [address] PROTEIN,TOTAL 7.2 g/dL 6.0-8.3 ALBUMIN 3.9 g/dL 3.5-5.0 ALKALINE PHOSPHATASE 97 U/L 40-150 AST 19 U/L 5-34 ALT 22 U/L BILIRUBIN, TOTAL comment mg/dL 0.2-1.2 Dec 04, 2023 01:44 PM [facility] LIPID PANEL FASTING Specimen Type: SERUM Comment: Hemolysis present analysis cannot be performed. Hemolysis present may falsly elevate Potassium Total and Direct Bili, Iron, AST, %Fe. Ordering Provider: KENAN GONSALES F Report Released Date/Time: Oct 21, 2023 11:41 AM Reporting Lab: [address] [address] Performing Lab: [address] [address] CHOLESTEROL 121 mg/dL TRIGLYCERIDE 56 mg/dL 0-150 LDL calculated 58 mg/dL 0-129 CHOL/HDL 2.3 HDL CHOLESTEROL 52 mg/dL 40-60 Dec 04, 2023 01:44 PM [facility] BASIC METABOLIC PANEL (fasting) Specimen Type: SERUM Comment: Hemolysis present analysis cannot be performed. Hemolysis present may falsly elevate Potassium Total and Direct Bili, Iron, AST, %Fe. Ordering Provider: KENAN GONSALES F Report Released Date/Time: Oct 21, 2023 11:41 AM Reporting Lab: [address] [address] Performing Lab: [address] [address] UREA NITROGEN 27 mg/dL H 7-25 GLUCOSE 173 mg/dL H 65-100 SODIUM 138 mmol/L 135-145 POTASSIUM 4.4 mmol/L 3.5-5.0 CHLORIDE 104 mmol/L 100-110 CO2 21 meq/L 20-30 CREATININE, Serum 1.69 mg/dL H 0.50-1.40 eGFR(CKD-EPI 2020) 40 mL/min L >60 Social History: Smoking Status (Most current) and Tobacco Use (All prior to encounter date) This section includes the most current, and the historical, smoking and tobacco- related health factors from the [place] facility where the Encounter took place. Current Smoking Status This section includes the most current smoking, or tobacco-related health factor, from the [place] facility where the Encounter took place. Date/Time Current Smoking Status Comment Danilo ity May 08, 2023 03:00 PM VA-TOBACCO NEVER USED [facility] Tobacco Use History This section includes a history of the smoking, or tobacco-related health factors, that were collected on or before the date of the Encounter. The data comes from the [place] facility where the Encounter took place. Date/Time Smoking Status/Tobacco Use Comment F acility Apr 11, 2022 03:30 PM [facility] Apr 11, 2022 03:30 PM VA-TOBACCO QUIT 15 YRS OR MORE [facility] Mar 14, 2020 09:40 AM VA-TOBACCO NEVER USED [facility] Nov 09, 2018 02:01 PM [facility]BACCO [facility] Jan 08, 2018 11:02 AM QUIT TOBACCO USE > 7 YEARS AGO [facility] [place] [facility] Jan 15, 2017 01:29 PM LIFETIME NON-TOBACCO USER [facility] Sep 26, 2015 09:49 AM LIFETIME NON-TOBACCO USER . [facility] [place] [facility] Apr 03, 2011 10:58 AM [facility] Advance Directives: All historical and current Section Date Range: From patient's date of to the date document was created. This section includes ALL of a patient's completed or amended [place] Advance and Rescinded Directives. The entries below indicate that a directive exists for the patient, but an actual copy is not included with this document. The data comes from all [place] facilities. Date Advance Directives Provider Source Aug 21, 2021 ADVANCE DIRECTIVE JAVIER CHILDERS [facility] Encounter Notes: All associated encounter notes This section contains the clinical notes associated to the Encounter. Date/Time Encounter Note(s) Provider Source Dec 09, 2023 04:10 PM PHARMACY MEDICATIO N MGT NOTE: LOCAL TITLE: CLINICAL PHARMACIST DRUG REGIMEN REVIEW STANDARD TITLE: PHARMACY MEDICATION MGT NOTE DATE OF NOTE: DEC 09, 2023@16:10 ENTRY DATE: DEC 09, 2023@16:10:51 AUTHOR: RYAN GALVAN COSIGNER: URGENCY: STATUS: COMPLETED This consult is for drug information questions, requests for clinical recommendations from Clinical Pharmacy Specialists (CPS), poly-pharmacy medication reviews, or general chart reviews for medication appropriateness. This consult is not for medication management as it is only an e-consult. Recommendations are included in this response. QUESTION: Review of dm medications in setting of high a1c and high risk for dm foot infection. 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 05/05/2011 FORREST GONSALES Meniere's Disease 386.00 05/05/2011 FORREST GONSALES Hypertension (SNOMED CT [id number]) I 01/17/2016 BRAMBILAIMELDA Obesity 278.00 04/03/2011 FORREST GONSALES Hearing Loss 389.9 04/03/2011 FORREST GONSALES Active and Recently Outpatient Medications (including Supplies): Active Outpatient Medications Status 1) ACCU-CHEK GUIDE (GLUCOSE) TEST STRIP USE 1 STRIP TO ACTIVE TEST BLOOD SUGARS TWICE DAILY 2) ACCU-CHEK GUIDE(GLUCOSE)HI/LO CNTRL SOLN 1 DROP ACTIVE TOPICALLY DIRECTED TO TEST GLUCOMETER FOR ACCURACY 3) AMIODARONE HCL 200MG TAB TAKE ONE TABLET BY MOUTH ACTIVE ONCE DAILY 4) AMLODIPINE BESYLATE 10MG TAB TAKE ONE TABLET BY MOUTH ACTIVE ONCE DAILY FOR BLOOD PRESSURE/HEART, DO NOT TAKE WITH GRAPEFRUIT JUICE 5) CLONIDINE HCL 0.3MG TAB TAKE ONE TABLET BY MOUTH ACTIVE TWICE DAILY TO CONTROL BLOOD PRESSURE 6) CLOPIDOGREL BISULFATE 75MG TAB TAKE ONE TABLET BY ACTIVE MOUTH ONCE DAILY 7) CYANOCOBALAMIN 1000MCG TAB TAKE ONE TABLET BY MOUTH ACTIVE ONCE DAILY FOR VITAMIN SUPPLEMENTATION 8) FUROSEMIDE 20MG TAB TAKE ONE TABLET BY MOUTH ONCE ACTIVE DAILY TO REMOVE FLUID/CONTROL BLOOD PRESSURE 9) GABAPENTIN 100MG CAP TAKE ONE CAPSULE BY MOUTH TWICE ACTIVE DAILY 10) GLUCOSE 4GM CHEW TAB CHEW TWO TABLETS BY MOUTH ACTIVE NEEDED FOR LOW BLOOD SUGAR 11) INSULIN SYRINGE 0.5ML 31G 8MM USE 1 SYRINGE ONCE ACTIVE DAILY FOR INSULIN INJECTIONS 12) INSULIN,GLARGINE-YFGN 100UNIT/ML INJ INJECT 40 UNITS ACTIVE SUBCUTANEOUSLY ONCE DAILY FOR DIABETES 13) LATANOPROST 0.005% OPH SOLN INSTILL 1 DROP INTO THE ACTIVE RIGHT EYE AT BEDTIME FOR WIDE-ANGLE GLAUCOMA 14) LOSARTAN 100MG TAB TAKE ONE TABLET BY MOUTH ONCE ACTIVE DAILY FOR BLOOD PRESSURE/HEART 15) MELATONIN 5MG CAP/TAB TAKE ONE CAPSULE/TABLET BY ACTIVE MOUTH EVERY EVENING 16) METOPROLOL SUCCINATE 50MG SA TAB TAKE ONE TABLET BY ACTIVE MOUTH ONCE DAILY FOR BLOOD PRESSURE/HEART 17) PRAVASTATIN NA 40MG TAB TAKE ONE TABLET BY MOUTH ONCE ACTIVE DAILY FOR CHOLESTEROL 18) SENNOSIDES 8.6MG TAB TAKE ONE TABLET BY MOUTH ONCE ACTIVE DAILY NEEDED CONSTIPATION 19) TAMSULOSIN HCL 0.4MG CAP TAKE ONE CAPSULE BY MOUTH ACTIVE ONCE DAILY Inactive Outpatient Medications Status 1) AMIODARONE HCL 200MG TAB TAKE ONE TABLET BY MOUTH DISCONTINUED ONCE DAILY 2) AMLODIPINE BESYLATE 5MG TAB TAKE ONE TABLET BY MOUTH DISCONTINUED ONCE DAILY FOR BLOOD PRESSURE/HEART, DO NOT TAKE (EDIT) WITH GRAPEFRUIT JUICE 3) BENZONATATE 100MG CAP TAKE ONE CAPSULE BY MOUTH THREE TIMES DAILY NEEDED FOR COUGH 4) CLONIDINE HCL 0.3MG TAB TAKE ONE TABLET BY MOUTH DISCONTINUED TWICE DAILY TO CONTROL BLOOD PRESSURE 5) CLOPIDOGREL BISULFATE 75MG TAB TAKE ONE TABLET BY DISCONTINUED MOUTH ONCE DAILY 6) CYANOCOBALAMIN 1000MCG TAB TAKE ONE TABLET BY MOUTH DISCONTINUED ONCE DAILY FOR VITAMIN SUPPLEMENTATION 7) FUROSEMIDE 20MG TAB TAKE ONE TABLET BY MOUTH ONCE DISCONTINUED DAILY TO REMOVE FLUID/CONTROL BLOOD PRESSURE 8) INSULIN,GLARGINE-YFGN 100UNIT/ML INJ INJECT 40 UNITS DISCONTINUED SUBCUTANEOUSLY ONCE DAILY FOR DIABETES 9) INSULIN,GLARGINE-YFGN 100UNIT/ML PEN 3ML INJECT 40 DISCONTINUED UNITS SUBCUTANEOUSLY ONCE DAILY FOR DIABETES (EDIT) 10) LATANOPROST 0.005% OPH SOLN INSTILL 1 DROP INTO THE DISCONTINUED RIGHT EYE AT BEDTIME FOR WIDE-ANGLE GLAUCOMA 11) LOSARTAN 100MG TAB TAKE ONE TABLET BY MOUTH ONCE DISCONTINUED DAILY FOR BLOOD PRESSURE/HEART 12) METOPROLOL SUCCINATE 25MG SA TAB TAKE ONE TABLET BY DISCONTINUED MOUTH ONCE DAILY FOR BLOOD PRESSURE/HEART 13) METOPROLOL SUCCINATE 25MG SA TAB TAKE ONE-HALF TABLET DISCONTINUED BY MOUTH ONCE DAILY FOR BLOOD PRESSURE/HEART (EDIT) 14) METOPROLOL SUCCINATE 50MG SA TAB TAKE ONE TABLET BY DISCONTINUED MOUTH ONCE DAILY FOR BLOOD PRESSURE/HEART 15) PRAVASTATIN NA 40MG TAB TAKE ONE TABLET BY MOUTH ONCE DISCONTINUED DAILY FOR CHOLESTEROL 16) SENNOSIDES 8.6MG TAB TAKE ONE TABLET BY MOUTH ONCE DISCONTINUED DAILY NEEDED CONSTIPATION 17) TAMSULOSIN HCL 0.4MG CAP TAKE ONE CAPSULE BY MOUTH DISCONTINUED ONCE DAILY 36 Total Medications Labs: CBC TREND Collection DT Spec WBC RBC HGB HCT MCV MCH PLT 12/07/2019 10:47 BLOOD 8.85 5.38 14.6 44.6 82.9 27.1 231 09/29/2019 11:06 BLOOD 7.31 4.87 13.2 40.8 83.8 27.1 249 09/16/2019 13:44 BLOOD 8.63 5.20 14.0 43.1 82.9 26.9 234 07/01/2019 09:17 BLOOD 8.21 5.48 13.8 43.8 79.9 L 25.2 L 276 04/01/2019 11:48 BLOOD 8.99 5.02 13.1 40.4 80.5 L 26.1 L 270 CHEM 7 TREND LAB CUMULATIVE SELECTED Collection DT Spec GLUCOSE BUN CREATIN Sodium K+/Pot CL CO2 12/04/2023 13:44 SERUM 173 H 27 H 1.69 H 138 4.4 104 21 05/08/2023 16:00 SERUM 205 H 34 H 1.97 H 138 4.4 104 24 02/06/2023 15:33 SERUM 196 H 31 H 1.81 H 136 4.4 105 21 06/27/2022 13:45 SERUM 121 H 29 H 1.78 H 141 4.3 103 26 03/10/2022 14:17 SERUM 104 H 29 H 1.70 H 139 4.1 102 27 LAB CUMULATIVE SELECTED 2 No selection items chosen for this component. CHEM 7 Results Collection DT Spec Sodium K+/Pot CL CO2 GLUCOSE BUN 12/04/2023 13:44 SERUM 138 4.4 104 21 173 H 27 H 05/08/2023 16:00 SERUM 138 4.4 104 24 205 H 34 H 02/06/2023 15:33 SERUM 136 4.4 105 21 196 H 31 H 06/27/2022 13:45 SERUM 141 4.3 103 26 121 H 29 H 03/10/2022 14:17 SERUM 139 4.1 102 27 104 H 29 H 06/26/2020 10:10 SERUM 138 4.0 102 22 183 H 24 04/27/2020 10:17 SERUM 137 4.3 104 24 175 H 16 12/07/2019 10:47 SERUM 140 4.0 104 22 143 H 19 09/29/2019 11:06 SERUM 139 4.6 105 25 151 H 20 09/16/2019 13:44 SERUM 138 4.6 106 23 159 H 19 07/01/2019 09:17 SERUM 140 4.3 104 26 140 H 16 04/01/2019 11:48 SERUM 140 4.4 105 26 153 H 15 11/09/2018 14:11 SERUM 139 4.3 102 26 173 H 15 05/13/2018 14:27 SERUM 140 4.0 106 23 229 H 18 12/08/2017 10:16 SERUM 139 4.2 102 28 125 H 19 07/07/2017 09:30 SERUM 140 4.2 105 26 98 14 01/15/2017 13:46 SERUM 139 4.3 103 25 227 H 17 07/10/2016 11:20 SERUM 141 4.3 107 26 127 H 19 02/25/2016 10:56 SERUM 138 4.3 105 23 197 H 15 01/15/2016 09:38 SERUM 141 4.1 108 23 123 H 17 10/16/2015 10:02 SERUM 139 4.1 106 23 157 H 19 08/24/2015 10:02 SERUM 139 4.1 107 24 166 H 16 12/26/2014 12:26 SERUM 139 4.2 105 25 226 H 16 09/29/2014 09:29 SERUM 137 4.2 103 25 214 H 15 03/28/2014 12:42 SERUM 141 4.3 107 23 241 H 17 12/09/2013 10:59 SERUM 137 4.1 101 24 212 H 14 04/05/2013 07:24 SERUM 137 3.9 100 25 208 H 15 07/08/2011 12:07 SERUM 136 4.4 103 20 270 H 18 LIVER PANEL TREND Collection DT Spec AST ALT T BILI ALK PASTORA T. PROT ALBUMIN 12/04/2023 13:44 SERUM 19 22 comment 97 7.2 3.9 05/08/2023 16:00 SERUM 17 28 0.6 126 7.4 4.2 02/06/2023 15:33 SERUM 17 26 0.4 82 6.7 3.8 06/27/2022 13:45 SERUM 18 26 0.6 83 7.5 4.2 03/10/2022 14:17 SERUM 17 24 0.5 98 7.1 4.0 LIPID PANEL TREND Collection DT Spec CHOL HDL CHO/HDL LDL-c TRIG 12/04/2023 13:44 SERUM 121 52 2.3 58 56 05/08/2023 16:00 SERUM 124 49 2.5 65 51 02/06/2023 15:33 SERUM 127 45 2.8 59 117 06/27/2022 13:45 SERUM 128 51 2.5 65 61 03/10/2022 14:17 SERUM 128 53 2.4 63 59 HEMOGLOBIN A1C TREND Collection DT Spec HGBA1c 12/04/2023 13:44 BLOOD 9.7 H 05/08/2023 16:00 BLOOD 9.4 H 02/06/2023 15:33 BLOOD 9.7 H 06/27/2022 13:45 BLOOD 7.2 H 03/10/2022 14:17 BLOOD 7.4 H IRON PANEL TREND Collection DT Spec IRON Ferrit 04/01/2019 11:48 SERUM 56 26.9 No data for IRON & TIBC PANEL THYROID PANEL Collection DT Specimen Test Name Result Units Ref Range 03/10/2022 14:17 SERUM TSH 4.94 uIU/mL 0.35 - 5.00 Dec 04, 2023@13:44 SERUM eGFR(CKD-EPI 2020): 40 L mL/min Ref: >=60 Dec 04, 2023@13:44 URINE mALB/Cr: 321.0 H mg/G 0 - 29.9 Vitals: Ht: 67 in [170.2 cm] (04/17/2016 09:06) Wt: 232 lb [105.23 kg] (05/08/2023 15:13) BMI: BMI: 36.4 BP: 132/70 (05/08/2023 15:13) HR: 78 (10/05/2023 11:16) Pain: 0 (05/08/2023 15:13) ASSESSMENT/RECOMMENDATIONS: Current DM medications: - insulin glargine 40 units once daily This CPP spoke with [facility] nurse Jacqui in regards to pt current state of health. She reports pt has missed multiple doses of insulin in the past month or so. She draws up 7 syringes a week and often there are doses leftover. Pt is currently living at home with s/o who does not administer insulin. Jacqui reports she had a long chat with pt in regards to diet and adherence to insulin. S/o is trying her best with buying and preparing healthier foods but also keeps treats in the house. In regards to medication recommendations options are very limited. Due to eGFR metformin is not a good option. Due to high a1c, SGLT2i is not a good option. Although, he would benefit from SGLT2i when bag is more in control. Due to CHF DPP4i is not an option. Pt trialed GLP1a and had adr of nausea and vomiting. Glipizide is not a great option d/t eGFR, age and risk of weight gain. At this time patient would most benefit from insulin glargine titration (if needed) AND meal time insulin. Consistent insulin administration and fbg testing is required to further assess need to titrate insulin glargine. In order for patient to safely be initiated on insulin aspart he needs a higher level of care. Per [facility] nurse, Jacqui there have been multiple conversations about pt going to a higher level of care. Pt and s/o have dismissed this idea numerous times. Jacqui states she will be attending PCP visit with pt on 12/25/23. Would recommend to encourage pt to seek higher level of care for his wellbeing as he is at high risk of dm foot infection as well as other complications from uncontrolled dm. Time spent: 30 mins /es/ RYAN GALVAN, PHARMD,BCPS CLINICAL PHARMACY PRACTITIONER Signed: 12/11/2023 09:43 Receipt Acknowledged By: 12/11/2023 10:44 /es/ Forrest Gonsales PA-C STAFF PHYSICIAN TRAIN DISPATCHER RYAN GALVAN [facility]
--- OUTSIDE RECORDS SUMMARY | 2024-10-31 17:02 | XMS_ITS | Clinical Summary ---
Author Organization 299 [facility] Address [address] [place] [address] Phone Care Team Providers Care Die Hardener Name Role Phone Ember Guerra MD Primary Care Provider [phone] Encounters Date Type Department Care Team Description 08/11/2024 Lab Requisition [facility] [address] [facility] [place] [address] Ember Guerra MD Vitamin D deficiency, unspecified; Other viral infections of unspecified site; Unsteadiness on feet; Muscle weakness (generalized); Acute kidney failure, unspecified (CMS/HCC); Shortness of breath; Atherosclerotic heart disease of [place] coronary artery without angina pectoris; Essential (primary) hypertension; 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) 07/30/2024 Lab Requisition [facility] Lab [address] [place] [address] Ember Guerra MD Other viral infections of unspecified site from Last 3 Months Surgical History Surgery Date Site/Laterality Comments 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; 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 CHOLECYSTECTOMY PROCEDURE: HISTORICAL CHOLECYSTECTOMY FLEXIBLE SIGMOIDOSCOPY 07/30/2005 PROCEDURE: VA SIGMOIDOSCOPY FLX DX W/COLLJ SPEC BR/WA IF PFRMD; COMMENT: diverticulosis; otherwise neg to 70 cm FLEXIBLE SIGMOIDOSCOPY 06/17/2011 PROCEDURE: VA SIGMOIDOSCOPY FLX DX W/COLLJ SPEC BR/WA IF [...] Shortness of breath Atherosclerotic heart disease of [place] coronary artery without angina pectoris Essential (primary) 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) VITAMIN D 25 HYDROXY Routine 08/11/2024 6:08 AM EST Vitamin D deficiency, unspecified Other viral infections of unspecified site Unsteadiness on feet Muscle weakness (generalized) Acute kidney failure, unspecified (CMS/HCC) Shortness of breath Atherosclerotic heart disease of [place] coronary artery without angina pectoris Essential (primary) 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) FOLATE Routine 08/11/2024 6:08 AM EST Vitamin D deficiency, unspecified Other viral infections of unspecified site Unsteadiness on feet Muscle weakness (generalized) Acute kidney failure, unspecified (CMS/HCC) Shortness of breath Atherosclerotic heart disease of [place] coronary artery without angina pectoris Essential (primary) 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) VITAMIN B12 Routine 08/11/2024 6:08 AM EST Vitamin D deficiency, unspecified Other viral infections of unspecified site Unsteadiness on feet Muscle weakness (generalized) Acute kidney failure, unspecified (CMS/HCC) Shortness of breath Atherosclerotic heart disease of [place] coronary artery without angina pectoris Essential (primary) 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) THYROID STIMULATING HORMONE Routine 08/11/2024 6:08 AM EST Vitamin D deficiency, unspecified Other viral infections of unspecified site Unsteadiness on feet Muscle weakness (generalized) Acute kidney failure, unspecified (CMS/HCC) Shortness of breath Atherosclerotic heart disease of [place] coronary artery without angina pectoris Essential (primary) 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) COMPREHENSIVE METABOLIC PANEL Routine 08/11/2024 6:08 AM EST Vitamin D deficiency, unspecified Other viral infections of unspecified site Unsteadiness on feet Muscle weakness (generalized) Acute kidney failure, unspecified (CMS/HCC) Shortness of breath Atherosclerotic heart disease of [place] coronary artery without angina pectoris Essential (primary) 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) COMPLETE BLOOD COUNT Routine 08/11/2024 6:08 AM EST Vitamin D deficiency, unspecified Other viral infections of unspecified site Unsteadiness on feet Muscle weakness (generalized) Acute kidney failure, unspecified (CMS/HCC) Shortness of breath Atherosclerotic heart disease of [place] coronary artery without angina pectoris Essential (primary) [...] LAB CHEMISTRY METHOD 08/11/2024 9:02 AM EST [facility] Blood Venous blood specimen / Unknown Venipuncture / Unknown 08/11/2024 6:08 AM EST 08/11/2024 7:48 AM EST Ember Guerra MD LAB BLOOD ORDERABLES [facility] [address] [place] [address], * (ABNORMAL) Complete blood count (08/11/2024 6:08 AM EST) Only the most recent of2 resultswithin the time period is included. WBC 9.6 4.8 - 10.8 K/mcL LAB HEMETOLOGY METHOD 08/11/2024 8:13 AM [facility] RBC 5.00 4.50 - 5.50 M/mcL LAB HEMETOLOGY METHOD 08/11/2024 8:13 AM [facility] Hemoglobin 13.2(L) 13.5 - 17.5 g/dL LAB HEMETOLOGY METHOD 08/11/2024 8:13 AM [facility] Hematocrit 41.1(L) 42.0 - 54.0 % LAB HEMETOLOGY METHOD 08/11/2024 8:13 AM [facility] MCV 82.7 79.0 - 98.0 FL LAB HEMETOLOGY METHOD 08/11/2024 8:13 AM [facility] MCH 26.6(L) 27.0 - 32.0 pcg LAB HEMETOLOGY METHOD 08/11/2024 8:13 AM [facility] MCHC 32.1 32.0 - 37.0 g/dL LAB HEMETOLOGY METHOD 08/11/2024 8:13 AM EST [facility] RDW 14.5 11.0 - 15.0 % LAB HEMETOLOGY METHOD 08/11/2024 8:13 AM [facility] Platelets 204 130 - 400 K/mcL LAB HEMETOLOGY METHOD 08/11/2024 8:13 AM [facility] MPV 11.0 7.0 - 11.0 FL LAB HEMETOLOGY METHOD 08/11/2024 8:13 AM [facility] NRBC 0.0 <1.0 % LAB HEMETOLOGY METHOD 08/11/2024 8:13 AM EST [facility] NRBC Absolute 0.00 <0.10 K/[facility] LAB HEMETOLOGY METHOD 08/11/2024 8:13 AM EST [facility] Blood Venous blood specimen / Unknown Venipuncture / Unknown 08/11/2024 6:08 AM EST 08/11/2024 7:48 AM EST Ember Guerra MD LAB BLOOD ORDERABLES [facility] [address] [place] [address], * (ABNORMAL) Thyroid stimulating hormone (08/11/2024 6:08 AM EST) TSH 4.68(H) 0.40 - 4.00 mcIU/mL LAB CHEMISTRY METHOD 08/11/2024 9:03 AM EST [facility] Blood Venous blood specimen / Unknown Venipuncture / Unknown 08/11/2024 6:08 AM EST 08/11/2024 7:48 AM EST Ember Guerra MD LAB BLOOD ORDERABLES [facility] [address] [place] [address], * (ABNORMAL) Hemoglobin A1c (08/11/2024 6:08 AM EST) Hemoglobin A1C 9.2(H) <6.5 % LAB CHEMISTRY METHOD 08/11/2024 10:54 AM EST [facility] Mean Bld Glu Estim. 217 mg/dL LAB CHEMISTRY METHOD 08/11/2024 10:54 AM EST [facility] Blood Venous blood specimen / Unknown Venipuncture / Unknown 08/11/2024 6:08 AM EST 08/11/2024 7:48 AM EST Ember Guerra MD LAB BLOOD ORDERABLES Performing Organization Address [facility] [address]/[facility] de Phone Number [facility] [address] [place] [address], [place] [phone] * Folate (08/11/2024 6:08 AM EST) [facility] Folate 11.8 2.8 - 17.0 ng/ml LAB CHEMISTRY METHOD 08/11/2024 9:01 AM EST [facility] Blood Venous blood specimen / Unknown Venipuncture / Unknown 08/11/2024 6:08 AM EST 08/11/2024 7:48 AM EST Ember Guerra MD LAB BLOOD ORDERABLES Performing Organization Address [facility] [address]/[facility] de Phone Number [facility] [address] [place] [address], [place] [phone] * (ABNORMAL) Vitamin B12 (08/11/2024 6:08 AM EST) [facility] Vitamin B-12 963(H) 250 - 900 pcg/mL LAB CHEMISTRY METHOD 08/11/2024 9:01 AM EST [facility] Blood Venous blood specimen / Unknown Venipuncture / Unknown 08/11/2024 6:08 AM EST 08/11/2024 7:48 AM EST Ember Guerra MD LAB BLOOD ORDERABLES Performing Organization Address [facility] [address]/[facility] de Phone Number [facility] [address] [place] [address], [place] [phone] * (ABNORMAL) Comprehensive metabolic panel (08/11/2024 6:08 AM EST) [facility] Sodium 139 133 - 145 mmol/L LAB CHEMISTRY METHOD 08/11/2024 8:38 AM [facility] Potassium 3.9 3.5 - 5.5 mmol/L LAB CHEMISTRY METHOD 08/11/2024 8:38 AM [facility] Chloride 106 96 - 110 mmol/L LAB CHEMISTRY METHOD 08/11/2024 8:38 AM [facility] CO2 25 21 - 32 mmol/L LAB CHEMISTRY METHOD 08/11/2024 8:38 AM [facility] Anion Gap 8 3 - 11 LAB CHEMISTRY METHOD 08/11/2024 8:38 AM [facility] Glucose 80 70 - 100 mg/dL LAB CHEMISTRY METHOD 08/11/2024 8:38 AM [facility] BUN 31(H) 5 - 25 mg/dL LAB CHEMISTRY METHOD 08/11/2024 8:38 AM [facility] Creatinine 1.61(H) 0.70 - 1.30 mg/dL LAB CHEMISTRY METHOD 08/11/2024 8:38 AM [facility] eGFR 42(L) >=60 mL/min/1. 73m2 LAB CHEMISTRY METHOD 08/11/2024 8:38 AM [facility] Comment:Calculation based on the??Chronic Kidney Disease Epidemiology Collaboration (CKD-EPI) equation refit??without adjustment for race. BUN/Creatinine Ratio 19.3 LAB CHEMISTRY METHOD 08/11/2024 8:38 AM [facility] Calcium 8.8 8.5 - 10.5 mg/dL LAB CHEMISTRY METHOD 08/11/2024 8:38 AM [facility] AST (SGOT) 14 10 - 42 unit/L LAB CHEMISTRY METHOD 08/11/2024 8:38 AM [facility] ALT (SGPT) 24 10 - 60 unit/L LAB CHEMISTRY METHOD 08/11/2024 8:38 AM [facility] Alkaline Phosphatase 92 42 - 121 unit/L LAB CHEMISTRY METHOD 08/11/2024 8:38 AM [facility] Total Protein 5.9(L) 6.0 - 8.0 g/dL LAB CHEMISTRY METHOD 08/11/2024 8:38 AM EST [facility] Albumin 3.0(L) 3.2 - 5.0 g/dL LAB CHEMISTRY METHOD 08/11/2024 8:38 AM [facility] Total Bilirubin 0.5 0.0 - 1.4 mg/dL LAB CHEMISTRY METHOD 08/11/2024 8:38 AM [facility] Blood Venous blood specimen / Unknown Venipuncture / Unknown 08/11/2024 6:08 AM EST 08/11/2024 7:48 AM EST Ember Guerra MD LAB BLOOD ORDERABLES Performing Organization Address City/[facility] [address]/ZIP Co de Phone Number [facility] [address] [place] [address], * Travel phlebotomy fee (08/01/2024 7:28 AM EST) [facility] HOME TRAVEL PHLEBOTOMY FEE Completed 08/01/2024 10:01 AM [facility] Blood Venous blood specimen / Unknown Venipuncture / Unknown 08/01/2024 7:28 AM EST 08/01/2024 9:25 AM EST Ember Guerra MD LAB BLOOD ORDERABLES [facility] [address] [place] [address], [place] [phone] * (ABNORMAL) Basic metabolic panel (08/01/2024 7:28 AM EST) [facility] Sodium 138 133 - 145 mmol/L LAB CHEMISTRY METHOD 08/01/2024 10:56 AM [facility] Potassium 4.1 3.5 - 5.5 mmol/L LAB CHEMISTRY METHOD 08/01/2024 10:56 AM [facility] Chloride 103 96 - 110 mmol/L LAB CHEMISTRY METHOD 08/01/2024 10:56 AM [facility] CO2 29 21 - 32 mmol/L LAB CHEMISTRY METHOD 08/01/2024 10:56 AM [facility] Anion Gap 6 3 - 11 LAB CHEMISTRY METHOD 08/01/2024 10:56 AM [facility] Glucose 136(H) 70 - 100 mg/dL LAB CHEMISTRY METHOD 08/01/2024 10:56 AM [facility] BUN 28(H) 5 - 25 mg/dL LAB CHEMISTRY METHOD 08/01/2024 10:56 AM [facility] Creatinine 1.51(H) 0.70 - 1.30 mg/dL LAB CHEMISTRY METHOD 08/01/2024 10:56 AM [facility] eGFR 46(L) >=60 mL/min/1. 73m2 LAB CHEMISTRY METHOD 08/01/2024 10:56 AM [facility] Comment:Calculation based on the??Chronic Kidney Disease Epidemiology Collaboration (CKD-EPI) equation refit??without adjustment for race. BUN/Creatinine Ratio 18.5 LAB CHEMISTRY METHOD 08/01/2024 10:56 AM [facility] Calcium 9.2 8.5 - 10.5 mg/dL LAB CHEMISTRY METHOD 08/01/2024 10:56 AM [facility] Blood Venous blood specimen / Unknown Venipuncture / Unknown 08/01/2024 7:28 AM EST 08/01/2024 9:25 AM EST Ember Guerra MD LAB BLOOD ORDERABLES [facility] [address] [place] [address], from Last 3 Months Care Teams Die Hardener Relationship Specialty Start Date End Date Ember Guerra MD [address] [facility] [address] [place] [address] PCP - General Geriatric Medicine 08/11/24
--- OUTSIDE RECORDS SUMMARY | 2024-10-31 17:02 | XMS_ITS ---
Author Name [facility] [place] [facility] [place] [facility] [place] Address [address] [place] [address] Care Team Providers Care Needle Board Repairer Name Role Phone FORREST GONSALES Primary Care [...] PART B Dec 27, 2005 PART B [id number] [facility] JOSEFINA BUSTILLOS PATIENT MEDICARE (WNR) MEDICARE (M) PART A Dec 27, 2005 PART A [id number] [facility] JOSEFINA BUSTILLOS PATIENT MEDICARE (WNR) MEDICARE (M) PART A Dec 27, 2005 PART A [id number] JOSEFINA BUSTILLOS PATIENT MEDICARE (WNR) MEDICARE (M) PART B Dec 27, 2005 PART B [id number] JOSEFINA BUSTILLOS PATIENT Selected Encounter This section includes the information on record at [place] for the Encounter. Date/Time Encounter Type Encounter Description Reason Provider Source May 24, 2024 03:30 PM OFFICE O/P EST LOW 20 MIN PRIMARY CARE/MEDICINE ICD-10-CM E11.8 Type 2 diabetes mellitus with unspecified complications ABRIL GONSALES [facility] Encounter Template Text not used by [place] Assessments - Encounter Diagnoses This section includes the primary and secondary diagnoses documented for the Encounter. Date/Time Primary/Secondary Diagnosis Diagnosis Name Provider Source May 24, 2024 04:48 PM PRIMARY Type 2 diabetes mellitus with unspecified complications [facility] May 24, 2024 04:48 PM SECONDARY Essential (primary) hypertension [facility]AL[facility] [place] [facility] May 24, 2024 04:48 PM SECONDARY Type 2 diabetes mellitus with diabetic neuropathy, unsp [facility] Plan of Treatment: Future Appointments (+ 6 months) and Future Tests (+/- 45 days) The Plan of Treatment section includes future care activities for the patient from all [place] [facility]. This section includes future appointments and future orders which are active, pending or scheduled. Future Appointments This section includes appointments that were scheduled to occur 6 months from the date of the Encounter, up to a maximum of 20 appointments. The data comes from all [place] treatment facilities. Appointment Date/Time Appointment Type Appointme nt Facility Name Jul 06, 2024 08:00 AM AMBULATORY - NONE [place] [facility] [place] [facility] Jul 12, 2024 03:30 PM AMBULATORY - MEDICINE [place] [facility] [facility] Jul 13, 2024 11:45 AM AMBULATORY - MEDICINE [place] [facility] [facility] Jul 26, 2024 08:00 AM AMBULATORY - NONE [place] [facility] [place] [facility] Aug 10, 2024 08:00 AM [facility] Active, Pending, and Scheduled Orders This section includes a listing of several types of active, pending, and scheduled orders, including clinic medications orders, diagnostic test orders, procedure orders and consult orders; where the start date of the order is 45 days before the date of the Encounter or 45 days after the date of theEncounter. The data comes from all [place] treatment facilities. Test Date/Time Test Type Test Details Facility Name May 11, 2024 01:47 PM Consult Order [facility] Cons Rod Piler's Choice [facility] May 24, 2024 12:00 AM Laboratory - Chemistry Order CBC BLOOD (LAV-BLOOD) [facility] May 24, 2024 12:00 AM Laboratory - Chemistry Order BASIC METABOLIC PANEL (fasting) BLOOD (SST-SERUM) [facility] May 24, 2024 12:00 AM Laboratory - Chemistry Order BNP (Natriuretic Peptide Brain) BLOOD (LAV-PLASMA) [facility] May 24, 2024 12:00 AM Laboratory - Chemistry Order MICROALBUMIN CREATININE RATIO PANEL URINE (RANDOM) [facility] May 24, 2024 12:00 AM Laboratory - Chemistry Order VITAMIN B12 BLOOD (SST-SERUM) [facility] May 24, 2024 12:00 AM Laboratory - Chemistry Order GLYCOHEMOGLOBIN (A1C),[place] [facility] [place] (LAV-HgB A1C) [facility] Vital Signs: All taken on the encounter date This section contains inpatient and outpatient Vital Signs collected on the date of the Encounter. Date/Time Temperature Pulse Blood Pressure Respiratory Rate SP02 Pain Height Weight Body Mass Index Source May 24, 2024 03:43 PM 98.9 54 144/68 18 91 0 238 37 [facility] Social History: Smoking Status (Most current) and Tobacco Use (All prior to encounter date) This section includes the most current, and the historical, smoking and tobacco- related health factors from the [place] facility where the Encounter took place. Current Smoking Status This section includes the most current smoking, or tobacco-related health factor, from the [place] facility where the Encounter took place. Date/Time Current Smoking Status Comment Danilo king May 24, 2024 03:30 PM [place]-TOBACCO NEVER USED [facility] Tobacco Use History This section includes a history of the smoking, or tobacco-related health factors, that were collected on or before the date of the Encounter. The data comes from the [place] facility where the Encounter took place. Date/Time Smoking Status/Tobacco Use Comment F acility May 08, 2023 03:00 PM VA-TOBACCO NEVER USED [place] [facility] [facility] Apr 11, 2022 03:30 PM VA-TOBACCO FORMER USER [facility] [place] [facility] Apr 11, 2022 03:30 PM VA-TOBACCO QUIT 15 YRS OR MORE [place] [facility] [place] [facility] Mar 14, 2020 09:40 AM VA-TOBACCO NEVER USED [facility] [place] [facility] Nov 09, 2018 02:01 PM VA-TOBACCO NEVER USED [facility] [place] [facility] Jan 08, 2018 11:02 AM QUIT TOBACCO USE > 7 YEARS AGO [facility] [place] [facility] Jan 15, 2017 01:29 PM LIFETIME NON-TOBACCO USER [facility] [place] [facility] Sep 26, 2015 09:49 AM LIFETIME NON-TOBACCO USER . [place] [facility] [place] [facility] Apr 03, 2011 10:58 AM LIFETIME NON-TOBACCO USER [place] [facility] Advance Directives: All historical and current Section Date Range: From patient's date of to the date document was created. This section includes ALL of a patient's completed or amended [place] Advance and Rescinded Directives. The entries below indicate that a directive exists for the patient, but an actual copy is not included with this document. The data comes from all [place] facilities. Date Advance Directives Provider Source Aug 21, 2021 ADVANCE DIRECTIVE JAVIER CHILDERS [place] [facility] Encounter Notes: All associated encounter notes This section contains the clinical notes associated to the Encounter. Date/Time Encounter Note(s) Provider Source May 24, 2024 04:12 PM PHYSICIAN BUSINESS PLANNING ANALYST NOTE: LOCAL TITLE: PA NOTE STANDARD TITLE: PHYSICIAN BUSINESS PLANNING ANALYST NOTE DATE OF NOTE: MAY 24, 2024@16:12 ENTRY DATE: MAY 24, 2024@16:13:01 AUTHOR: FORREST GONSALES COSIGNER: URGENCY: STATUS: COMPLETED CC/HPI/A/P: 84 year old MALE here in follow-up for; uncontrolled Dm, He and cannot tell us when his leg dressing were last changed, nor when they are next to be changed. Due to the smell we take down drsgs on both legs. Erythema from ankle to knee on both legs with a small serous quarter sized lesion on lateral left calf and an open, lesion the size of the palm of my hand on his lateral right calf. This is exuding a serosanginous exudate. A/p: Uncontrolled DM with open leg wounds, I doubt amenable to oral antibiotics. He consents to ED evaluation for possible admission and IV antibiotics. We arrange. Review of systems: Patient reports no changes from [facility], in meds or any admissions. Active problems - Computerized Problem List is the source for the followin. Type 2 diabetes mellitus uncontrolled 2. CHF - Congestive Heart Failure ([facility] [id number]) 3. History of mitral valve replacement Dr Middleton at [facility]. 4. Amaurosis fugax 5. Diabetic Nephropathies * 6. Neuropathy due to diabetes mellitus (SNOMED CT [id number]) 7. Impotence, Organic Orign 8. Diverticulosis, Colonic On [address] Justin at [place]. 9. Prostate Cancer 10. Meniere's Disease 11. Hypertension (SNOMED CT [id number]) 12. Obesity 13. Hearing Loss SERVICE CONNECTED % - 80 VA and Non VA meds were reconciled with the patient who left with a corrected copy. See medication page for details. Active and Recently Outpatient Medications (excluding Supplies): Active Outpatient Medications Status 1) AMIODARONE HCL 200MG TAB TAKE ONE TABLET BY MOUTH ACTIVE ONCE DAILY 2) AMLODIPINE BESYLATE 10MG TAB TAKE ONE TABLET BY MOUTH ACTIVE ONCE DAILY FOR BLOOD PRESSURE/HEART, DO NOT TAKE WITH GRAPEFRUIT JUICE 3) CLONIDINE HCL 0.3MG TAB TAKE ONE TABLET BY MOUTH ACTIVE TWICE DAILY TO CONTROL BLOOD PRESSURE 4) CLOPIDOGREL BISULFATE 75MG TAB TAKE ONE TABLET BY ACTIVE (S) MOUTH ONCE DAILY 5) CYANOCOBALAMIN 1000MCG TAB TAKE ONE TABLET BY MOUTH ACTIVE ONCE DAILY FOR VITAMIN SUPPLEMENTATION 6) GABAPENTIN 100MG CAP TAKE ONE CAPSULE BY MOUTH TWICE ACTIVE DAILY 7) GLUCOSE 4GM CHEW TAB CHEW TWO TABLETS BY MOUTH ACTIVE NEEDED FOR LOW BLOOD SUGAR 8) INSULIN,GLARGINE-YFGN 100UNIT/ML INJ INJECT 40 UNITS ACTIVE SUBCUTANEOUSLY ONCE DAILY FOR DIABETES 9) LOSARTAN 100MG TAB TAKE ONE TABLET BY MOUTH ONCE ACTIVE DAILY FOR BLOOD PRESSURE/HEART 10) METOPROLOL SUCCINATE 50MG SA TAB TAKE ONE TABLET BY ACTIVE MOUTH ONCE DAILY FOR BLOOD PRESSURE/HEART 11) PRAVASTATIN NA 40MG TAB TAKE ONE TABLET BY MOUTH ONCE ACTIVE DAILY FOR CHOLESTEROL 12) SENNOSIDES 8.6MG TAB TAKE ONE TABLET BY MOUTH ONCE ACTIVE DAILY NEEDED CONSTIPATION 13) TAMSULOSIN HCL 0.4MG CAP TAKE ONE CAPSULE BY MOUTH ACTIVE ONCE DAILY Inactive Outpatient Medications Status 1) FUROSEMIDE 20MG TAB TAKE ONE TABLET BY MOUTH ONCE DAILY TO REMOVE FLUID/CONTROL BLOOD PRESSURE 14 Total Medications 98.9 F [37.2 C] (05/24/2024 15:43) 54 (05/24/2024 15:43) 18 (05/24/2024 15:43) 144/68 (05/24/2024 15:43) 0 (05/24/2024 15:43) 67 in [170.2 cm] (04/17/2016 09:06) 238 lb [107.95 kg] (05/24/2024 15:43) BMI: 37.4 Neuro: Alert and oriented times three, grossly nonfocal, nasolabial folds intact. Thyroid nonpalpable. Cor: Regular rate and rhythm, normal s1 and 2 without Murmur, carotid bruits or pedal edema. Lungs; Clear to auscultation bilaterally. Recent labs reviewed with patient today: Tobacco Use Screening: The patient has never used tobacco. Alcohol Use Screen (AUDIT-C): Alcohol Screen: SCREEN FOR ALCOHOL (AUDIT-C) An alcohol screening test (AUDIT-C) was negative (score=0). 1. How often did you have a drink containing alcohol in the past year? Consider a drink to be a 12 ounce can or bottle of regular beer, 8 ounces of malt liquor, a 5 ounce glass of table wine, or a 1.5 ounce shot of liquor (like scotch, gin, or vodka). Never 2. How many drinks containing alcohol did you have on a typical day when you were drinking in the past year? Response not required due to responses to other questions. 3. How often did you have six or more drinks on one occasion in the past year? Response not required due to responses to other questions. /pancho/ Forrest Gonsales PA-C STAFF PHYSICIAN BUSINESS PLANNING ANALYST Signed: 05/24/2024 16:48 FORREST GONSALES [place] [facility] [facility] May 24, 2024 03:59 PM PREVENTIVE MEDICINE NURSING NOTE: LOCAL TITLE: CLINICAL REMINDERS/NURSING STANDARD TITLE: PREVENTIVE MEDICINE NURSING NOTE DATE OF NOTE: MAY 24, 2024@15:59 ENTRY DATE: MAY 24, 2024@16:00:02 AUTHOR: REAGAN MARTI EXP COSIGNER: URGENCY: STATUS: COMPLETED Suicide Screen: C-SSRS Screening [place] Suicide Severity Rating Scale (C-SSRS) screener 1. Over the past month, have you wished you were or wished you could go to sleep and not wake up? No 2. Over the past month, have you had any actual thoughts of killing yourself? No 3. Over the past month, have you been thinking about how you might do this? Response not required due to responses to other questions. 4. Over the past month, have you had these thoughts and had some intention of acting on them? Response not required due to responses to other questions. 5. Over the past month, have you started to work out or worked out the details of how to kill yourself? Response not required due to responses to other questions. 6. If yes, at any time in the past month did you intend to carry out this plan? Response not required due to responses to other questions. 7. In your lifetime, have you ever done anything, started to do anything, or prepared to do anything to end your life (for example, collected pills, obtained a gun, gave away valuables, went to the roof but didn't jump)? No 8. If YES, was this within the past 3 months? Response not required due to responses to other questions. Depression Screening: Perform PHQ-2 A PHQ-2 screen was performed. The score was 0 which is a negative screen for depression. Over the past two weeks, how often have you been bothered by the following problems? 1. Little interest or pleasure in doing things Not at all 2. Feeling down, depressed, or hopeless Not at all Falls & Incontinence Screen: Falls Screen: During the past 12 months, did the patient report any falls? 4. No falls within the past year. Incontinence Screen: During the past 12 months, has the patient has any characteristics of incontinence (ability, voiding, leakage, etc.)? No incontinence. Tobacco Use Screening: The patient has never used tobacco. Alcohol Use Screen (AUDIT-C): Alcohol Screen: SCREEN FOR ALCOHOL (AUDIT-C) An alcohol screening test (AUDIT-C) was negative (score=0). 1. How often did you have a drink containing alcohol in the past year? Consider a drink to be a 12 ounce can or bottle of regular beer, 8 ounces of malt liquor, a 5 ounce glass of table wine, or a 1.5 ounce shot of liquor (like scotch, gin, or vodka). Never 2. How many drinks containing alcohol did you have on a typical day when you were drinking in the past year? Response not required due to responses to other questions. 3. How often did you have six or more drinks on one occasion in the past year? Response not required due to responses to other questions. /pancho/ REAGAN MARTI LPN Signed: 05/24/2024 16:02 REAGAN MARTI [facility]
--- OUTSIDE RECORDS SUMMARY | 2024-10-31 17:02 | XMS_ITS ---
Author Name [facility] [place] [facility] [place] [facility] [place] Address [address] [place] [id number] Care Team Providers Care Stretcher Helper Name Role Phone RUTHIE GONSALES Primary Care Provider Unavail able Insurance [...] PART B Dec 27, 2005 PART B [id number] [facility] [phone] JOSEFINA BUSTILLOS PATIENT MEDICARE (WNR) MEDICARE (M) PART A Dec 27, 2005 PART A [id number] [facility] JOSEFINA BUSTILLOS PATIENT MEDICARE (WNR) MEDICARE (M) PART B Dec 27, 2005 PART B [id number] [facility] JOSEFINA BUSTILLOS PATIENT Selected Encounter This section includes the information on record at [place] for the Encounter. Date/Time Encounter Type Encounter Description Reason Provider Source Oct 21, 2024 11:53 AM PH1 ASSMT&MGMT NQHP -20 TELEPHONE CASE MANAGEMENT ICD-10-CM Z71.9 Counseling, unspecified ISAIAS ESPAÑA IHE Encounter Template Text not used by [place] Assessments - Encounter Diagnoses This section includes the primary and secondary diagnoses documented for the Encounter. Date/Time Primary/Secondary Diagnosis Diagnosis Name Provider Source Oct 21, 2024 11:53 AM PRIMARY Counseling, unspecified [facility]AIAS ESPAÑA [facility] Plan of Treatment: Future Appointments (+ 6 months) and Future Tests (+/- 45 days) The Plan of Treatment section includes future care activities for the patient from all [place] [facility] This section includes future appointments and future orders which are active, pending or scheduled. Future Appointments This section includes appointments that were scheduled to occur 6 months from the date of the Encounter, up to a maximum of 20 appointments. The data comes from all [place] treatment [facility]. Appointment Date/Time Appointment Type Appointme nt Facility Name Oct 31, 2024 03:15 PM AMBULATORY - MEDICINE [facility] Nov 01, 2024 02:00 PM AMBULATORY - MEDICINE [facility] Dec 01, 2024 02:00 PM AMBULATORY - MEDICINE [facility] Dec 16, 2024 02:30 PM [facility] Active, Pending, and Scheduled Orders This section includes a listing of several types of active, pending, and scheduled orders, including clinic medications orders, diagnostic test orders, procedure orders and consult orders; where the start date of the order is 45 days before the date of the Encounter or 45 days after the date of theEncounter. The data comes from all [facility]. Test Date/Time Test Type Test Details Facility Name Sep 14, 2024 12:00 AM Laboratory - Chemistry Order VITAMIN B12 BLOOD (SST-SERUM) [facility] Oct 04, 2024 03:38 PM Consult Order PODIATRY/[facility] OUTPT Cons Web Page Designer's Choice [facility] Oct 06, 2024 10:44 AM Consult Order COMMUNITY CARE-NEPHROLOGY Cons Web Page Designer's Choice [facility] Nov 09, 2024 12:00 AM Laboratory - Chemistry Order HEMOGLOBIN A1C PANEL BLOOD (LAV[facility]BLOOD[facility] Nov 09, 2024 12:00 AM Laboratory - Chemistry Order BASIC METABOLIC PANEL (fasting) BLOOD (SST-SERUM) [facility] Nov 09, 2024 12:00 AM Laboratory - Chemistry Order LIVER FUNCTION BLOOD (SST-SERUM) [facility] Nov 09, 2024 12:00 AM Laboratory - Chemistry Order MICROALBUMIN CREATININE RATIO PANEL URINE (RANDOM) [facility] Nov 09, 2024 12:00 AM Laboratory - Chemistry Order LIPID PANEL FASTING BLOOD (SST-SERUM) [facility] Lab Results: +/- 30 days of the encounter This section includes the Chemistry and Hematology Lab Results on record with [place] for the patient. Radiology Reports and Pathology Reports are provided separately, in subsequent sections. Lab Results This section contains the Chemistry/Hematology Results that were resulted 30 days before or 30 daysafter the date of the Encounter. Date/Time Source Result Type Result - Unit Interpretation Reference Range Comment Oct 04, 2024 02:52 PM [facility] BNP (Natriuretic Peptide Brain) Specimen Type: PLASMA No comment entered. Ordering Provider: KENAN GONSALES F Report Released Date/Time: Sep 14, 2024 03:33 PM Reporting Lab: [address] [address] Performing Lab: [address] [address] BNP (Natriuretic Peptide Brain) 291 pg/mL H 10-100 Oct 04, 2024 02:52 PM [facility] VITAMIN B12 Specimen Type: SERUM No comment entered. Ordering Provider: KENAN GONSALES F Report Released Date/Time: Sep 14, 2024 03:33 PM Reporting Lab: [facility] [address] [address] Performing Lab: [address] [address] VITAMIN B12 597 pg/mL 200-900 Oct 04, 2024 02:52 PM [facility] MICROALBUMIN CREATININE RATIO PANEL Specimen Type: URINE No comment entered. Ordering Provider: KENAN GONSALESM F Report Released Date/Time: Sep 14, 2024 03:33 PM Reporting Lab: [address] [address] Performing Lab: [address] [address] MICROALBUMIN/C REATININE RATIO 2418.7 mg/g H 0-29.9 MICROALBUMIN,Q UANTITATIVE 186.0 mg/dL RR UNAVAIL CREATININE URINE 76.90 mg/dL Oct 04, 2024 02:52 PM [facility] HEMOGLOBIN A1C PANEL Specimen Type: BLOOD Comment: Values obtained from A1C measurements can vary. For atypical A1C assays, a reported value of 7.0 could actually be between 6.72 and 7.28 if measured by a reference method. A reported value of 9.0 could actually be between 8.73 and 9.27. Ref: http://www.ngs p.org/CAPdata. asp Ordering Provider: KENAN GONSALES F Report Released Date/Time: Sep 14, 2024 03:33 PM Reporting Lab: [address] [address] Performing Lab: [address] [address] HEMOGLOBIN A1C 9.2 H 4.0-5.6 Oct 04, 2024 02:52 PM [facility] BASIC METABOLIC PANEL (fasting) Specimen Type: SERUM No comment entered. Ordering Provider: KENAN GONSALES F Report Released Date/Time: Sep 14, 2024 03:33 PM Reporting Lab: [address] [address] Performing Lab: [address] [address] UREA NITROGEN 25 mg/dL 7-25 GLUCOSE 192 mg/dL H 65-100 SODIUM 138 mmol/L 135-145 POTASSIUM 4.3 mmol/L 3.5-5.0 CHLORIDE 104 mmol/L 100-110 CO2 23 meq/L 20-30 CREATININE, Serum 1.53 mg/dL H 0.50-1.40 eGFR(CKD-EPI 2020) 45 mL/min L >60 Oct 04, 2024 02:52 PM [facility] LIPID PANEL FASTING Specimen Type: SERUM No comment entered. Ordering Provider: KENAN GONSALES F Report Released Date/Time: Sep 14, 2024 03:33 PM Reporting Lab: [facility] [address] [address] Performing Lab: [address] [address] CHOLESTEROL 190 mg/dL TRIGLYCERIDE 65 mg/dL 0-150 LDL calculated 115 mg/dL 0-129 CHOL/HDL 3.1 HDL CHOLESTEROL 62 mg/dL H 40-60 Oct 04, 2024 02:52 PM [facility] LIVER FUNCTION Specimen Type: SERUM No comment entered. Ordering Provider: KENAN GONSALES F Report Released Date/Time: Sep 14, 2024 03:33 PM Reporting Lab: [facility] [address] [address] Performing Lab: [address] [address] PROTEIN,TOTAL 8.2 g/dL 6.0-8.3 ALBUMIN 4.2 g/dL 3.5-5.0 ALKALINE PHOSPHATASE 119 U/L 40-150 AST 19 U/L 5-34 ALT 23 U/L BILIRUBIN, TOTAL 0.6 mg/dL 0.2-1.2 Oct 04, 2024 02:52 PM [facility] CBC Specimen Type: BLOOD No comment entered. Ordering Provider: KENAN GONSALES F Report Released Date/Time: Sep 14, 2024 03:33 PM Reporting Lab: [address] [address] Performing Lab: [address] [address] WBC 9.81 10*3/uL 4.50-11.00 RBC 5.95 10*6/uL H 4.23-5.66 HGB 15.9 g/dL 12.8-17 HCT 48.7 39.2-50.4 MCV 81.8 fL L 82-99 MCHC 32.6 g/dL 30.8-35.1 PLT 239 10*3/uL 140-360 RDW-CV 14.5 12.0-16.0 MCH 26.7 pg 26.2-32.6 Social History: Smoking Status (Most current) and Tobacco Use (All prior to encounter date) This section includes the most current, and the historical, smoking and tobacco- related health factors from the [place] facility where the Encounter took place. Current Smoking Status This section includes the most current smoking, or tobacco-related health factor, from the [place] facility where the Encounter took place. Date/Time Current Smoking Status Comment Facil ity May 24, 2024 03:30 PM VA-TOBACCO NEVER USED IN [facility] [place] [facility] Tobacco Use History This section includes a history of the smoking, or tobacco-related health factors, that were collected on or before the date of the Encounter. The data comes from the [place] facility where the Encounter took place. Date/Time Smoking Status/Tobacco Use Comment F acility May 08, 2023 03:00 PM VA-TOBACCO NEVER USED [facility] [place] [facility] Apr 11, 2022 03:30 PM VA-TOBACCO FORMER USER [facility] [place] [facility] Apr 11, 2022 03:30 PM VA-TOBACCO QUIT 15 YRS OR MORE [facility] [place] [facility] Mar 14, 2020 09:40 AM VA-TOBACCO NEVER USED [facility] [place] [facility] Nov 09, 2018 02:01 PM VA-TOBACCO NEVER USED [facility] [place] [facility] Jan 08, 2018 11:02 AM QUIT TOBACCO USE > 7 YEARS AGO [facility] [place] [facility] Jan 15, 2017 01:29 PM LIFETIME NON-TOBACCO USER [facility] [place] [facility] Sep 26, 2015 09:49 AM LIFETIME NON-TOBACCO USER . [facility] [place] [facility] Apr 03, 2011 10:58 AM LIFETIME NON-TOBACCO USER [facility] [place] [facility] Advance Directives: All historical and current Section Date Range: From patient's date of to the date document was created. This section includes ALL of a patient's completed or amended [place] Advance and Rescinded Directives. The entries below indicate that a directive exists for the patient, but an actual copy is not included with this document. The data comes from all [place] facilities. Date Advance Directives Provider Source Aug 21, 2021 ADVANCE DIRECTIVE JAVIER CHILDERS IN [facility] Encounter Notes: All associated encounter notes This section contains the clinical notes associated to the Encounter. Date/Time Encounter Note(s) Provider Source Oct 21, 2024 11:53 AM SOCIAL WORK NOTE: LOCAL TITLE: SOCIAL WORK NOTE STANDARD TITLE: SOCIAL WORK NOTE DATE OF NOTE: OCT 21, 2024@11:53 ENTRY DATE: OCT 21, 2024@11:54:16 AUTHOR: JAVIER ESPAÑA EXP COSIGNER: URGENCY: STATUS: COMPLETED SOCIAL WORK NOTE Has ADDENDA CPRS reviewed. Oracle Architect reached out to x2. There were no options to leave VM message due to busy signal and multiple rings. 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 There are 2 assigned workers and a scheduled home visit on November 02, 2024. We are aware capacity is a concern. We also know is pretty set on living where he is for now. We do not have contact information for their family members. However, once we begin our assessments and in-home appointment with [facility], hopefully we will be able to obtain family information and determine their needs . /pancho/ OBINNA CORNEJO LICENSED INDEPENDENT CLINICAL STOCKLAYER Signed: 10/21/2024 12:21 Receipt Acknowledged By: 10/21/2024 15:13 /es/ REAGAN MARTI LPN 10/21/2024 14:54 /es/ JENNA MCNAMARA, PhD STAFF PSYCHOLOGIST 10/22/2024 07:25 /es/ Ruthie Gonsales PA-C STAFF PHYSICIAN TANNING CONSULTANT 10/21/2024 12:51 /es/ GOMEZ BROWER, RN REGISTERED NURSE 10/21/2024 ADDENDUM STATUS: COMPLETED Oracle Architect reached out a third time. There were no options to leave VM message due to multiple rings. /pancho/ OBINNA CORNEJO LICENSED INDEPENDENT CLINICAL STOCKLAYER Signed: 10/21/2024 12:24 JAVIER ESPAÑA [place] [facility]
--- OUTSIDE RECORDS SUMMARY | 2024-10-31 17:02 | XMS_ITS | Encounter Summary ---
Author Name [facility] [place] [place] Organization [facility] [place] [facility] [place] Address [address] [place] [address] Care Team Providers Care Coat Padder Name Role Phone RUTHIE GONSALES Primary Care [...] PART B Dec 27, 2005 PART B [id number] LOCATED WITHIN [facility] [phone] APOLLOJOSEFINA SHANE PATIENT MEDICARE (WNR) MEDICARE (M) PART A Dec 27, 2005 PART A [id number] LOCATED WITHIN [facility] [phone] APOLLOJOSEFINA SHANE PATIENT MEDICARE (WNR) MEDICARE (M) PART B Dec 27, 2005 PART B [id number] LOCATED WITHIN [facility] [phone] JOSEFINA BUSTILLOS PATIENT Selected Encounter This section includes the information on record at [place] for the Encounter. Date/Time Encounter Type Encounter Description Reason Pro vider Source Oct 19, 2024 12:46 PM Outpatient Encounter PRIMARY CARE/MEDICINE IHE Encounter Template Text not used by [facility] Plan of Treatment: Future Appointments (+ 6 months) and Future Tests (+/- 45 days) The Plan of Treatment section includes future care activities for the patient from all [facility] treatmentfacilities. This section includes future appointments and future orders which are active, pending or scheduled. Future Appointments This section includes appointments that were scheduled to occur 6 months from the date of the Encounter, up to a maximum of 20 appointments. The data comes from all [facility]. Appointment Date/Time Appointment Type Appointme nt Facility Name Nov 01, 2024 02:00 PM [facility] Dec 01, 2024 02:00 PM AM[facility]ULAT[facility] - [facility] Dec 16, 2024 02:30 PM [facility] Active, Pending, and Scheduled Orders This section includes a listing of several types of active, pending, and scheduled orders, including clinic medications orders, diagnostic test orders, procedure orders and consult orders; where the start date of the order is 45 days before the date of the Encounter or 45 days after the date of theEncounter. The data comes from all [facility]. Test Date/Time Test Type Test Details Facility Name Sep 14, 2024 12:00 AM Laboratory - Chemistry Order VIT[facility]IN [facility] B[facility]SERUM[facility] Oct 04, 2024 03:38 PM Consult Order PODIATRY/[facility] OUTPT Cons Dobby Loom [facility] Oct 06, 2024 10:44 AM Consult Order COMMUNITY CARE-NEPHROLOGY Cons [facility] Nov 09, 2024 12:00 AM Laboratory - Chemistry Order HEMOGLOBIN A1C PANEL BLOOD (LAV-BLOOD) [facility] Nov 09, 2024 12:00 AM Laboratory - Chemistry Order LIPID PANEL FASTING BLOOD (SST-SERUM) [facility] Nov 09, 2024 12:00 AM Laboratory - Chemistry Order BASIC METABOLIC PANEL (fasting) BLOOD (SST-SERUM) [facility] Nov 09, 2024 12:00 AM Laboratory - Chemistry Order LIVER FUNCTION BLOOD (SST-SERUM) [facility] Nov 09, 2024 12:00 AM Laboratory - Chemistry Order MICROALBUMIN CREATININE RATIO PANEL URINE (RANDOM) [facility] Lab Results: +/- 30 days of the encounter This section includes the Chemistry and Hematology Lab Results on record with [facility] for the patient. Radiology Reports and Pathology Reports are provided separately, in subsequent sections. Lab Results This section contains the Chemistry/Hematology Results that were resulted 30 days before or 30 daysafter the date of the Encounter. Date/Time Source Result Type Result - Unit Interpretation Reference Range Comment Oct 04, 2024 02:52 PM [facility] VITAMIN B12 Specimen Type: SERUM No comment entered. Ordering Provider: KENAN GONSALESM F Report Released Date/Time: Sep 14, 2024 03:33 PM Reporting Lab: [address] [address] Performing Lab: [address] [address] VITAMIN B12 597 pg/mL 200-900 Oct 04, 2024 02:52 PM [facility] BNP (Natriuretic Peptide Brain) Specimen Type: PLASMA No comment entered. Ordering Provider: KENAN GONSALES F Report Released Date/Time: Sep 14, 2024 03:33 PM Reporting Lab: [address] [address] Performing Lab: [address] [address] BNP (Natriuretic Peptide Brain) 291 pg/mL H 10-100 Oct 04, 2024 02:52 PM [facility] MICROALBUMIN CREATININE RATIO PANEL Specimen Type: URINE No comment entered. Ordering Provider: KENAN GONSALES F Report Released Date/Time: Sep 14, 2024 03:33 PM Reporting Lab: [address] [address] Performing Lab: [address] [address] MICROALBUMIN/C REATININE RATIO 2418.7 mg/g H 0-29.9 MICROALBUMIN,Q UANTITATIVE 186.0 mg/dL RR UNAVAIL CREATININE URINE 76.90 mg/dL Oct 04, 2024 02:52 PM [facility] HEMOGLOBIN A1C PANEL Specimen Type: BLOOD Comment: [...] Sep 14, 2024 03:33 PM Reporting Lab: [address] [address] Performing Lab: [address] [address] HEMOGLOBIN A1C 9.2 H 4.0-5.6 Oct 04, 2024 02:52 PM [facility] BASIC METABOLIC PANEL (fasting) Specimen Type: SERUM No comment entered. Ordering Provider: KENAN GONSALES F Report Released Date/Time: Sep 14, 2024 03:33 PM Reporting Lab: [address] [address] Performing Lab: [address] [address] UREA NITROGEN 25 mg/dL 7-25 GLUCOSE 192 mg/dL H 65-100 SODIUM 138 mmol/L 135-145 POTASSIUM 4.3 mmol/L 3.5-5.0 CHLORIDE 104 mmol/L 100-110 CO2 23 meq/L 20-30 CREATININE, Serum 1.53 mg/dL H 0.50-1.40 eGFR(CKD-EPI 2020) 45 mL/min L >60 Oct 04, 2024 02:52 PM [facility] CBC Specimen Type: BLOOD No comment entered. Ordering Provider: KENAN GONSALES F Report Released Date/Time: Sep 14, 2024 03:33 PM Reporting Lab: [address] [address] Performing Lab: [facility] [address] [facility] [address] WBC 9.81 10*3/uL 4.50-11.00 RBC 5.95 10*6/uL H 4.23-5.66 HGB 15.9 g/dL 12.8-17 HCT 48.7 39.2-50.4 MCV 81.8 fL L 82-99 MCHC 32.6 g/dL 30.8-35.1 PLT 239 10*3/uL 140-360 RDW-CV 14.5 12.0-16.0 MCH 26.7 pg 26.2-32.6 Oct 04, 2024 02:52 PM [facility] LIPID PANEL FASTING Specimen Type: SERUM No comment entered. Ordering Provider: KENAN GONSALES Report Released Date/Time: Sep 14, 2024 03:33 PM Reporting Lab: [address] [address] Performing Lab: [address] [address] CHOLESTEROL 190 mg/dL TRIGLYCERIDE 65 mg/dL 0-150 LDL calculated 115 mg/dL 0-129 CHOL/HDL 3.1 HDL CHOLESTEROL 62 mg/dL H 40-60 Oct 04, 2024 02:52 PM [facility] LIVER FUNCTION Specimen Type: SERUM No comment entered. Ordering Provider: KENAN GONSALES F Report Released Date/Time: Sep 14, 2024 03:33 PM Reporting Lab: [address] [address] Performing Lab: [address] [address] PROTEIN,TOTAL 8.2 g/dL 6.0-8.3 ALBUMIN 4.2 g/dL 3.5-5.0 ALKALINE PHOSPHATASE 119 U/L 40-150 AST 19 U/L 5-34 ALT 23 U/L BILIRUBIN, TOTAL 0.6 mg/dL 0.2-1.2 Social History: Smoking Status (Most current) and Tobacco Use (All prior to encounter date) This section includes the most current, and the historical, smoking and tobacco- related health factors from the [place] facility where the Encounter took place. Current Smoking Status This section includes the most current smoking, or tobacco-related health factor, from the [place] facility where the Encounter took place. Date/Time Current Smoking Status Comment Danilo ity May 24, 2024 03:30 PM [facility]AC[facility] Tobacco Use History This section includes a history of the smoking, or tobacco-related health factors, that were collected on or before the date of the Encounter. The data comes from the [place] facility where the Encounter took place. Date/Time Smoking Status/Tobacco Use Comment F acility May 08, 2023 03:00 PM [facility] Apr 11, 2022 03:30 PM VA-TOBACCO FORMER USER [place] [facility] Apr 11, 2022 03:30 PM VA-TOBACCO QUIT [address] [facility] Mar 14, 2020 09:40 AM [facility] Nov 09, 2018 02:01 PM [facility]BACCO [facility] Jan 08, 2018 11:02 AM QUIT TOBACCO USE > 7 YEARS AGO [facility] Jan 15, 2017 01:29 PM LIFETIME NON-TOBACCO [facility]ER [facility] Sep 26, 2015 09:49 AM LIFETIME NON-TOBACCO USER . [facility] Apr 03, 2011 10:58 AM LIFETIME [facility]-TOBACCO [facility]ER [facility] Advance Directives: All historical and current Section Date Range: From patient's date of to the date document was created. This section includes ALL of a patient's completed or amended [place] Advance and Rescinded Directives. The entries below indicate that a directive exists for the patient, but an actual copy is not included with this document. The data comes from all [place] facilities. Date Advance Directives Provider Source Aug 21, 2021 [address] [facility] Encounter Notes: All associated encounter notes This section contains the clinical notes associated to the Encounter. Date/Time Encounter Note(s) Provider Source Oct 19, 2024 01:55 PM ADDENDUM: LOCAL TITLE: Addendum STANDARD TITLE: ADDENDUM DATE OF NOTE: OCT 19, 2024@13:55:13 ENTRY DATE: OCT 19, 2024@13:55:14 AUTHOR: JENNA MCNAMARA COSIGNER: URGENCY: STATUS: COMPLETED Executive Meeting Manager will consult with clinical medical transcription supervisor, admissions and PACT SW about assessment, respite/admissions options for the . /es/ JENNA MCNAMARA, PhD STAFF PSYCHOLOGIST Signed: 10/19/2024 13:55 Receipt Acknowledged By: * AWAITING SIGNATURE * RUDOLPH MONTANA 10/19/2024 14:07 /es/ Lissette Arrington Skip Loader, Inpatient & Walk-In 10/19/2024 16:25 /es/ OBINNA CORNEJO LICENSED INDEPENDENT CLINICAL QA REVIEWER ========= --- Original Document --- 10/19/24 TELEPHONE NOTE/PRIMARY CARE: Recieved phone crescencio from [facility] Nurse Jacqui who states has not been taking his medication correctly, has taken only 2 days of medication in the last week and only 2 doses of insulin in the last 2 weeks. is becoming more agressive in his behavior, stating his independence I'll when I'm continues to turn away services. Veterans children VNA Nurse and veterans partner discussing options for care, Carmel unable to foillow and maintain a healthy diet for diabetes and kidney failure, Dialysis not an option due to transportation, veternas state of mental health and refusing services. Family is wanting to take veterans partner away for vacation wondering if can be admitted for respite somewhere for the time partner is away, Family also wondering if a mental competence evaluation can be performed questioning if is able to make sound healthcare decisions. Tesfaye has upcoming office wisit with PCP, will alert SOFTWARE CONFIGURATION ANALYST, Pharmacy /es/ REAGAN MARTI LPN Signed: 10/19/2024 12:55 Receipt Acknowledged By: * AWAITING SIGNATURE * RUTHIE GONSALES 10/19/2024 13:23 /es/ GOMEZ BROWER, RN REGISTERED NURSE * AWAITING SIGNATURE * JAVIER ESPAÑA 10/19/2024 13:55 /es/ JENNA MNCAMARA, PhD STAFF PSYCHOLOGIST 10/19/2024 14:18 /es/ RYAN GALVAN, PHARMD,BCPS CLINICAL PHARMACY PRACTITIONER JENNA MCNAMARA [place] [facility] Oct 19, 2024 12:46 PM PRIMARY CARE TELEP ROMY ENCOUNTER NOTE: LOCAL TITLE: TELEPHONE NOTE/PRIMARY CARE STANDARD TITLE: PRIMARY CARE TELEPHONE ENCOUNTER NOTE DATE OF NOTE: OCT 19, 2024@12:46 ENTRY DATE: OCT 19, 2024@12:46:12 AUTHOR: REAGAN MARTI EXP COSIGNER: URGENCY: STATUS: COMPLETED TELEPHONE NOTE/PRIMARY CARE Has ADDENDA Recieved phone crescencio from [facility]NA Nurse Jacqui who states has not been taking his medication correctly, has taken only 2 days of medication in the last week and only 2 doses of insulin in the last 2 weeks. Carmel is becoming more agressive in his behavior, stating his independence I'll when I'm continues to turn away services. Veterans children VNA Nurse and veterans partner discussing options for care, Carmel unable to foillow and maintain a healthy diet for diabetes and kidney failure, Dialysis not an option due to transportation, veternas state of mental health and refusing services. Family is wanting to take veterans partner away for vacation wondering if can be admitted for respite somewhere for the time partner is away, Family also wondering if a mental competence evaluation can be performed questioning if is able to make sound healthcare decisions. Veterna has upcoming office wisit with PCP, will alert OBINNA Pharmacy /es/ REAGAN MARTI LPN Signed: 10/19/2024 12:55 Receipt Acknowledged By: 10/20/2024 17:10 /es/ Ruthie Gonsales PA-C STAFF PHYSICIAN MOLD MOVER 10/19/2024 13:23 /es/ GOMEZ BROWER, RN REGISTERED NURSE 10/19/2024 16:26 /es/ OBINNA CORNEJO LICENSED INDEPENDENT CLINICAL QA REVIEWER 10/19/2024 13:55 /es/ JENNA MCNAMARA, PhD STAFF PSYCHOLOGIST 10/19/2024 14:18 /es/ RYAN GALVAN, PHARMD,BCPS CLINICAL PHARMACY PRACTITIONER 10/19/2024 ADDENDUM STATUS: COMPLETED Executive Meeting Manager will consult with clinical medical transcription supervisor, admissions and PACT SW about assessment, respite/admissions options for the . /es/ JENNA MCNAMARA, PhD STAFF PSYCHOLOGIST Signed: 10/19/2024 13:55 Receipt Acknowledged By: * AWAITING SIGNATURE * RUDOLPH MONTANA 10/19/2024 14:07 /es/ Lissette Arrington Skip Loader, Inpatient & Walk-In 10/19/2024 16:25 /es/ OBINNA CORNEJO LICENSED INDEPENDENT CLINICAL QA REVIEWER [facility]
--- OUTSIDE RECORDS SUMMARY | 2024-10-31 17:02 | XMS_ITS | Encounter Summary ---
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 Date/Time Encounter Type Encounter Description Reason Pro vider Source Dec 14, 2023 03:00 PM Outpatient Encounter PODIATRY IHE Encounter Template Text not used by [...] 20 appointments. The data comes from all [place] treatment facilities. Appointment Date/Time Appointment Type Appointme nt Facility Name Dec 25, 2023 01:00 PM [place] [facility] [place] [facility] Jan 04, 2024 01:30 PM [place] [facility] [place] [facility] February 01, 2024 02:00 PM [place] [facility] [place] [facility] February 08, 2024 03:30 PM [place] [facility] [place] [facility] February 15, 2024 02:30 PM [place] [facility] [place] [facility] Mar 15, 2024 08:00 AM AM[place]ORY [place] [facility] [place] [facility] Apr 12, 2024 03:30 PM [place] [facility] [place] [facility] May 11, 2024 08:00 AM [place] [facility] [place] [facility] May 15, 2024 08:00 AM [place] [facility] [place] [facility] May 24, 2024 03:30 PM [place] [facility] [place] [facility] Lab Results: +/- 30 days of the encounter This section includes the Chemistry and Hematology Lab Results on record with [place] for the patient. Radiology Reports and Pathology Reports are provided separately, in subsequent sections. Lab Results This section contains the Chemistry/Hematology Results that were resulted 30 days before or 30 daysafter the date of the Encounter. Date/Time Source Result Type Result - Unit Interpretation Reference Range Comment Dec 04, 2023 01:44 PM [place] [facility] [place] [facility] HEMOGLOBIN A1C PANEL Specimen Type: BLOOD Comment: Values obtained from A1C measurements can vary. For atypical A1C assays, a reported value of 7.0 could actually be between 6.72 and 7.28 if measured by a reference method. A reported value of 9.0 could actually be between 8.73 and 9.27. Ref: http://www.ngs p.org/CAPdata. asp Ordering Provider: KENAN RUBALCAVAM F Report Released Date/Time: Oct 21, 2023 11:41 AM Reporting Lab: [facility] [address] [facility] [address] Performing Lab: [address] [address] HEMOGLOBIN A1C 9.7 H 4.0-5.6 Dec 04, 2023 01:44 PM [facility] MICROALBUMIN CREATININE RATIO PANEL Specimen Type: URINE No comment entered. Ordering Provider: KENAN RUBALCAVA [facility] F Report Released Date/Time: Oct 21, 2023 11:41 AM Reporting Lab: [address] [address] Performing Lab: [address] [address] MICROALBUMIN/C REATININE RATIO 321.0 mg/g H 0-29.9 MICROALBUMIN,Q UANTITATIVE 20.2 mg/dL RR UNAVAIL CREATININE URINE 62.93 mg/dL Dec 04, 2023 01:44 PM [facility] LIVER FUNCTION Specimen Type: SERUM Comment: Hemolysis present analysis cannot be performed. Hemolysis present may falsly elevate Potassium Total and Direct Bili, Iron, AST, %Fe. Ordering Provider: KENAN RUBALCAVA F Report Released Date/Time: Oct 21, 2023 11:41 AM Reporting Lab: [address] [address] Performing Lab: [address] [address] PROTEIN,TOTAL 7.2 g/dL 6.0-8.3 ALBUMIN 3.9 g/dL 3.5-5.0 ALKALINE PHOSPHATASE 97 U/L 40-150 AST 19 U/L 5-34 ALT 22 U/L BILIRUBIN, TOTAL comment mg/dL 0.2-1.2 Dec 04, 2023 01:44 PM [facility] LIPID PANEL FASTING Specimen Type: SERUM Comment: Hemolysis present analysis cannot be performed. Hemolysis present may falsly elevate Potassium Total and Direct Bili, Iron, AST, %Fe. Ordering Provider: KENAN RUBALCAVA F Report Released Date/Time: Oct 21, 2023 11:41 AM Reporting Lab: [facility] [address] [facility] [address] Performing Lab: [address] [address] CHOLESTEROL 121 mg/dL TRIGLYCERIDE 56 mg/dL 0-150 LDL calculated 58 mg/dL 0-129 CHOL/HDL 2.3 HDL CHOLESTEROL 52 mg/dL 40-60 Dec 04, 2023 01:44 PM [facility] BASIC METABOLIC PANEL (fasting) Specimen Type: SERUM Comment: Hemolysis present analysis cannot be performed. Hemolysis present may falsly elevate Potassium Total and Direct Bili, Iron, AST, %Fe. Ordering Provider: KENAN RUBALCAVA F Report Released Date/Time: Oct 21, 2023 11:41 AM Reporting Lab: [address] [address] Performing Lab: [address] [address] UREA NITROGEN 27 mg/dL H 7-25 GLUCOSE [...] and tobacco- related health factors from the [place] facility where the Encounter took place. Current Smoking Status This section includes the most current smoking, or tobacco-related health factor, from the [place] facility where the Encounter took place. Date/Time Current Smoking Status Comment Facil christine May 08, 2023 03:00 PM [place] NEVER USED [facility] Tobacco Use History This section includes a history of the smoking, or tobacco-related health factors, that were collected on or before the date of the Encounter. The data comes from the [place] facility where the Encounter took place. Date/Time Smoking Status/Tobacco Use Comment F acility Apr 11, 2022 03:30 PM VA-TOBACCO FOR[facility]ER [facility] Apr 11, 2022 03:30 PM VA-TOBACCO QUIT 15 YRS OR MORE [facility] Mar 14, 2020 09:40 AM VA-TOBACCO NEVER USED [facility] Nov 09, 2018 02:01 PM VA-TOBACCO NEVER USED [facility] [facility] Jan 08, 2018 11:02 AM QUIT TOBACCO USE > 7 YEARS AGO [facility] [facility] Jan 15, 2017 01:29 PM LIFETIME NON-TOBACCO USER [facility] Sep 26, 2015 09:49 AM LIFETIME NON-TOBACCO USER . [facility] Apr 03, 2011 10:58 AM LIFETIME [facility]BACCO [facility] Advance Directives: All historical and current Section Date Range: From patient's date of to the date document was created. This section includes ALL of a patient's completed or amended [place] Advance and Rescinded Directives. The entries below indicate that a directive exists for the patient, but an actual copy is not included with this document. The data comes from all [place] facilities. Date Advance Directives Provider Source Aug 21, 2021 ADVANCE DIRECTIVE JAVIER CHILDERS [facility] Encounter Notes: All associated encounter notes This section contains the clinical notes associated to the Encounter. Date/Time Encounter Note(s) Provider Source Dec 14, 2023 03:24 PM LETTERS: LOCAL TITLE: PATIENT LETTER (B) STANDARD TITLE: LETTERS DATE OF NOTE: DEC 14, 2023@15:24 ENTRY DATE: DEC 14, 2023@15:24:38 AUTHOR: ANGELES CHERY COSIGNER: URGENCY: STATUS: COMPLETED DEC 14, 2023 KISHAN BUSTILLOS [place] [address] Dear KISHAN BUSTILLOS Thank you for choosing the [facility] as your primary choice for health care. As a partner in your health care, we are contacting you in writing since we have been unsuccessful in our attempts to reach you to date. We want to assure you we are doing everything possible to schedule Veterans for their VA medical care appointments. Our records indicate that you are due for an appointment in podiatry wound clinic If you would like to be seen, please contact [facility] at ext. [phone] to schedule an appointment. Thank you for your service to our nation, and we look forward to hearing from you soon. Sincerely, [facility] [address] [facility] [address] [place] [address] [place] [address] [facility] [address] [facility] [address] [place] [address] [place] [address] ext. [phone] [facility] [address] [facility] [address] [place] [address] [place] [address] ext. [phone] ANGELES CHERY [place] [facility] [place] [facility] Dec 14, 2023 03:23 PM TELEPHONE ENCOUNTE R NOTE: LOCAL TITLE: TELEPHONE NOTE/SPECIALTY CLINIC STANDARD TITLE: TELEPHONE ENCOUNTER NOTE DATE OF NOTE: DEC 14, 2023@15:23 ENTRY DATE: DEC 14, 2023@15:23:28 AUTHOR: ANGELES CHERY EXP COSIGNER: URGENCY: STATUS: COMPLETED DEC 14, 2023 [address]ILLOS [address] [address] Dear KISHAN BUSTILLOS Thank you for choosing [facility] as your primary choice for health care. As a partner in your health care, we are contacting you in writing since we have been unsuccessful in our attempts to reach you to date. We want to assure you we are doing everything possible to schedule Veterans for their VA medical care appointments. Our records indicate that you are due for an appointment in podiatry wound clinic If you would like to be seen, please contact [facility] at ext. [phone] to schedule an appointment. Thank you for your service to our nation, and we look forward to hearing from you soon. Sincerely, [facility] [address] [facility] [address] [place] [address] [place] [address] [facility] [address] [facility] [address] [place] [address] [place] [address] ext. [phone] [facility] [address] [facility] [address] [place] [address] [place] [address] ext. [phone] /es/ ANGELES CHERY LEAD SAMPLE CHECKER Signed: 12/14/2023 15:23 ANGELES CHERY [place] [facility] [place] [facility] Dec 14, 2023 03:21 PM CLERICAL NOTE: LOCAL TITLE: APPOINTMENT NO SHOW STANDARD TITLE: CLERICAL NOTE DATE OF NOTE: DEC 14, 2023@15:21 ENTRY DATE: DEC 14, 2023@15:21:59 AUTHOR: ANGELES CHERY EXP COSIGNER: URGENCY: STATUS: COMPLETED Patient Name: KISHAN BUSTILLOS Patient SSN: [id number] Date and time of Appointment No show : 12/14/23 15:00 PATIENT PHONE - PHONE NUMBER [CELLULAR] - Patient's medical record was reviewed. Follow-up actions were determined and initiated: Please check/complete as applies: [X]Telephoned Directly [ ]Re-scheduled for next available appt [X]Sent a N0-show letter ( must call for appointment) [ ]Other (Emergent/Overbook, etc.): Additional Comments: Future Clinic Visits 12/25/2023 13:00 CWM/NO/PACT 3 01/04/2024 13:30 COM CARE-CARDIOLOGY 01/27/2024 14:00 NHM/OPT/VISUAL IMAGING 01/27/2024 14:30 NHM/OPTOMETRY/CARROLL/ 02/01/2024 14:00 CWM/NO/WOUND PROV A /es/ ANGELES CHERY LEAD SAMPLE CHECKER Signed: 12/14/2023 15:23 Receipt Acknowledged By: 12/15/2023 08:28 /es/ BECK WALDRON SUPERVISORY SAMPLE CHECKER ANGELES CHERY [facility]
--- OUTSIDE RECORDS SUMMARY | 2024-10-31 17:02 | XMS_ITS ---
Author Name [facility] [facility] [place] [facility] [place] Address [address] [place] [address] Care Team Providers Care It Systems Analyst Name Role Phone RUTHIE GONSALES Primary Care [...] PART B Dec 27, 2005 PART B [id number] [facility] APOLLOJOSEFINA SHANE PATIENT MEDICARE (WNR) MEDICARE (M) PART A Dec 27, 2005 PART A [id number] [facility] JOSEFINA BUSTILLOS PATIENT MEDICARE (WNR) MEDICARE (M) PART B Dec 27, 2005 PART B [id number] [facility] JOSEFINA BUSTILLOS PATIENT Selected Encounter This section includes the information on record at [place] for the Encounter. Date/Time Encounter Type Encounter Description Reason Provider Source Dec 04, 2023 01:00 PM OFFICE O/P EST MOD 30 MIN PODIATRY ICD-10-CM E11.621 Type 2 diabetes mellitus with foot ulcer DANNY BLANK Encounter Template Text not used by [place] Assessments - Encounter Diagnoses This section includes the primary and secondary diagnoses documented for the Encounter. 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 This section includes future appointments and [...] 14, 2023 03:00 PM AMBULATORY - [place]ICINE [place] [facility] Dec 25, 2023 01:00 PM AM[place]ULATORY [place] [facility] Jan 04, 2024 01:30 PM AM[place]ULATORY [place] [facility] February 01, 2024 02:00 PM AM[place]ULATORY [place] [facility] February 08, 2024 03:30 PM [place]ORY [place] [facility] February 15, 2024 02:30 PM AM[place]ULATORY [place] [facility] Mar 15, 2024 08:00 AM AM[place]ULATORY [place] [facility] Apr 12, 2024 03:30 PM AMBULATORY - MEDICINE [place] [facility] May 11, 2024 08:00 AM AMBULATORY [place]ICINE [place] [facility] May 15, 2024 08:00 AM AMBULATORY - MEDICINE [facility] May 24, 2024 03:30 PM AMBULATORY - MEDICINE [facility] Lab Results: +/- 30 days of the encounter This section includes the Chemistry and Hematology Lab Results on record with [place] for the patient. Radiology Reports and Pathology Reports are provided separately, in subsequent sections. Lab Results This section contains the Chemistry/Hematology Results that were resulted 30 days before or 30 daysafter the date of the Encounter. Date/Time Source Result Type Result - Unit Interpretation Reference Range Comment Dec 04, 2023 01:44 PM [facility] HEMOGLOBIN A1C PANEL Specimen Type: BLOOD Comment: Values obtained from A1C measurements can vary. For atypical A1C assays, a reported value of 7.0 could actually be between 6.72 and 7.28 if measured by a reference method. A reported value of 9.0 could actually be between 8.73 and 9.27. Ref: http://www.ngs p.org/CAPdata. asp Ordering Provider: KENAN GONSALES Report Released Date/Time: Oct 21, 2023 11:41 AM Reporting Lab: [facility] [address] [facility] [address] Performing Lab: [facility] [address] [facility] [address] HEMOGLOBIN A1C 9.7 H 4.0-5.6 Dec 04, 2023 01:44 PM [facility] MICROALBUMIN CREATININE RATIO PANEL Specimen Type: URINE No comment entered. Ordering Provider: KENAN GNOSALES F Report Released Date/Time: Oct 21, 2023 11:41 AM Reporting Lab: [facility] [address] [facility] [address] Performing Lab: [facility] [address] [facility] [address] MICROALBUMIN/C REATININE RATIO 321.0 mg/g H 0-29.9 MICROALBUMIN,Q UANTITATIVE 20.2 mg/dL RR UNAVAIL CREATININE URINE 62.93 mg/dL Dec 04, 2023 01:44 PM [facility] LIPID PANEL FASTING Specimen Type: SERUM Comment: Hemolysis present analysis cannot be performed. Hemolysis present may falsly elevate Potassium Total and Direct Bili, Iron, AST, %Fe. Ordering Provider: KENAN GONSALES Report Released Date/Time: Oct 21, 2023 11:41 AM Reporting Lab: [facility] [address] [facility] [address] Performing Lab: [address] [address] CHOLESTEROL 121 mg/dL TRIGLYCERIDE 56 mg/dL 0-150 LDL calculated 58 mg/dL 0-129 CHOL/HDL 2.3 HDL CHOLESTEROL 52 mg/dL 40-60 Dec 04, 2023 01:44 PM [facility] BASIC METABOLIC PANEL (fasting) Specimen Type: SERUM Comment: Hemolysis present analysis cannot be performed. Hemolysis present may falsly elevate Potassium Total and Direct Bili, Iron, AST, %Fe. Ordering Provider: KENAN GONSALES Report Released Date/Time: Oct 21, 2023 11:41 AM Reporting Lab: [facility] [address] [facility] [address] Performing Lab: [address] [address] UREA NITROGEN 27 mg/dL H 7-25 GLUCOSE 173 mg/dL H 65-100 SODIUM 138 mmol/L 135-145 POTASSIUM 4.4 mmol/L 3.5-5.0 CHLORIDE 104 mmol/L 100-110 CO2 21 meq/L 20-30 CREATININE, Serum 1.69 mg/dL H 0.50-1.40 eGFR(CKD-EPI 2020) 40 mL/min L >60 Dec 04, 2023 01:44 PM [facility] LIVER FUNCTION Specimen Type: SERUM Comment: Hemolysis present analysis cannot be performed. Hemolysis present may falsly elevate Potassium Total and Direct Bili, Iron, AST, %Fe. Ordering Provider: KENAN GONSALES Report Released Date/Time: Oct 21, 2023 11:41 AM Reporting Lab: [address] [address] Performing Lab: [address] [place] [address] PROTEIN,TOTAL 7.2 g/dL 6.0-8.3 ALBUMIN 3.9 g/dL 3.5-5.0 ALKALINE PHOSPHATASE 97 U/L 40-150 AST 19 U/L 5-34 ALT 22 U/L BILIRUBIN, TOTAL comment mg/dL 0.2-1.2 Social History: Smoking Status (Most [...] Current Smoking Status Comment Facil ity May 08, 2023 03:00 PM [facility] Tobacco Use History This section includes a history of the smoking, or tobacco-related health factors, that were collected on or before the date of the Encounter. The data comes from the [place] facility where the Encounter took place. Date/Time Smoking Status/Tobacco Use Comment F acility Apr 11, 2022 03:30 PM VA-TOBACCO FORMER USER [place] [facility] Apr 11, 2022 03:30 PM VA-TOBACCO QUIT 15 YRS OR MORE [place] [facility] Mar 14, 2020 09:40 AM VA-TOBACCO NEVER USED [place] [facility] Nov 09, 2018 02:01 PM VA-TOBACCO NEVER USED [place] [facility] Jan 08, 2018 11:02 AM QUIT TOBACCO USE > 7 YEARS AGO [place] [facility] Jan 15, 2017 01:29 PM LIFETIME NON-TOBACCO USER [place] [facility] Sep 26, 2015 09:49 AM LIFETIME NON-TOBACCO USER . [place] [facility] Apr 03, 2011 10:58 AM LIFETIME NON-TOBACCO USER [place] [facility] Advance Directives: All historical and [...] Provider Source Aug 21, 2021 ADVANCE DIRECTIVE TETOJAVIER BERG [place] [facility] Encounter Notes: All associated encounter notes This section contains the clinical notes associated to the Encounter. Date/Time Encounter Note(s) Provider Source Dec 06, 2023 04:43 PM ADDENDUM: LOCAL TITLE: Addendum STANDARD TITLE: ADDENDUM DATE OF NOTE: DEC 06, 2023@16:43:36 ENTRY DATE: DEC 06, 2023@16:43:38 AUTHOR: RUTHIE GONSALES EXP COSIGNER: URGENCY: STATUS: COMPLETED Please review DM control. See DR Blank's note above as well, high risk. /pancho/ Ruthie Gonsales PA-C STAFF PHYSICIAN CORPORATE TRAVEL MANAGER Signed: 12/06/2023 16:44 Receipt Acknowledged By: 12/09/2023 16:09 /pancho/ RYAN GALVAN, PHARMD,BCPS CLINICAL PHARMACY PRACTITIONER --- Original Document --- 12/04/23 PODIATRY NOTE: Podiatry High Risk Foot Encounter [facility] provider: Danny Blank DP Date: DEC 04, 2023 KISHAN BUSTILLOS MALE [id number] Dec 83 Primary Care:RUTHIE GONSALES Reason for visit: Add-on unscheduled visit for complaint of pain and ball of foot left side. 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 Patient has an end shoe carbon fiber device on exam. With poor padding to protect the foot from the hard carbon fiber plate. He is pending currently for new shoes and may have to go to a double upright version. 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 05/05/2011 RUTHIE GONSALES Meniere's Disease 386.00 05/05/2011 RUTHIE GONSALES Hypertension (SNOMED CT 38924144) I 01/17/2016 IMELDA BRAMBILA Obesity 278.00 04/03/2011 RUTHIE GONSALES Hearing Loss 389.9 04/03/2011 RUTHIE GONSALES Active Out Patient medications: Active Outpatient Medications (including Supplies): Active Outpatient Medications [...] ONE CAPSULE BY MOUTH ACTIVE ONCE DAILY Imaging reports: Lab Data: CHEM 7 TREND LAB CUMULATIVE SELECTED Collection DT Spec GLUCOSE BUN CREATIN Sodium K+/Pot CL CO2 05/08/2023 16:00 SERUM 205 H 34 H 1.97 H 138 4.4 104 24 02/06/2023 15:33 SERUM 196 H 31 H 1.81 H 136 4.4 105 21 06/27/2022 13:45 SERUM 121 H 29 H 1.78 H 141 4.3 103 26 03/10/2022 14:17 SERUM 104 H 29 H 1.70 H 139 4.1 102 27 06/26/2020 10:10 SERUM 183 H 24 1.16 138 4.0 102 22 LAB CUMULATIVE SELECTED 2 No selection items chosen for this component. CHEM 7 Results Collection DT Spec Sodium K+/Pot CL CO2 GLUCOSE BUN 05/08/2023 16:00 SERUM 138 4.4 104 24 205 H 34 H 02/06/2023 15:33 SERUM 136 4.4 105 21 196 H 31 H HEMOGLOBIN A1C TREND Collection DT Spec HGBA1c 05/08/2023 16:00 BLOOD 9.4 H 02/06/2023 15:33 BLOOD 9.7 H 06/27/2022 13:45 BLOOD 7.2 H 03/10/2022 14:17 BLOOD 7.4 H 06/26/2020 10:10 BLOOD 7.5 H ALBUMIN Collection DT Specimen Test Name Result Units Ref Range 05/08/2023 16:00 SERUM ALBUMIN 4.2 g/dL 3.5 - 5.0 BMI:BMI: 36.4 PE:General: Morbidly obese 83-year-old male awake alert oriented x3, pleasant cooperative no distress. Bilateral 1+ ankle foot edema No erythema Mild dopplerable DP and PT pulses Skin warm pink well-hydrated Diminished sensation to Caldwell Mayra monofilament at distal toes. No pedal ankle or leg hair present Nails dystrophic but no clinical signs of infection Well-healed and stable amputation of lesser toe 3 left foot Deviated second toe in the transverse plane High-pressure callus submetatarsal 2 debrided down to reveal shallow 1 mm x 1 mm ulcer with pink base no tunneling or undermining. Depth of less than 1 mm. Mechanical: Decreased dorsiflexion ability on the left side polio scale 3-4 out of 5 motor strength. Impression: -Obese poorly controlled diabetic with good arterial flow but peripheral edema dropfoot and decreased sensation now with small tiny shallow ulcer under submetatarsal 2 on the left foot without clinical signs of infection most likely result of wearing footwear without adequate cushioning Current footwear the patient present with is extremely warm 30 and poorly supportive with poor cushioning. Plan: -Debrided callus to ulcer today submit to left foot -Gave clear instructions to patient and caregiver to apply bacitracin and Band-Aid at least once a day -Clear instructions not to soak feet -Fit and dispensed new pair of shoes with gel Derm orthotic insole with accommodation to offload second metatarsal on left foot -Return to clinic or emergency room p.r.n. any signs of infection such as increased redness swelling fever chills or nausea increased drainage pain redness streaking of the lower leg, or flulike symptoms. -Recommended follow-up December 13 wound care clinic -Patient may need to go to a double upright external bracing system -In shoe carbon fiber brace difficult and causing wound problems and this neuropathic patient having done so. /pancho/ DANNY BLANK DPM PODIATRY ATTENDING Signed: 12/04/2023 15:14 RUTHIE GONSALES [facility] Dec 04, 2023 02:59 PM PODIATRY NOTE: LOCAL TITLE: PODIATRY NOTE STANDARD TITLE: PODIATRY NOTE DATE OF NOTE: DEC 04, 2023@14:59 ENTRY DATE: DEC 04, 2023@14:59:06 AUTHOR: DANNY BLANK EXP COSIGNER: URGENCY: STATUS: COMPLETED Podiatry High Risk Foot Encounter [facility] provider: Danny Blank DPM Date: DEC 04, 2023 KISHAN BUSTILLOS MALE [id number] Dec 83 Primary Care:RUTHIE GONSALES Reason for visit: Add-on unscheduled visit for complaint of pain and ball of foot left side. 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 Patient has an end shoe carbon fiber device on exam. With poor padding to protect the foot from the hard carbon fiber plate. He is pending currently for new shoes and may have to go to a double upright version. 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 05/05/2011 RUTHIE GONSALES Meniere's Disease 386.00 05/05/2011 RUTHIE GONSALES Hypertension (SNOMED CT 79293200) I 01/17/2016 IMELDA BRAMBILA Obesity 278.00 04/03/2011 RUTHIE GONSALES Hearing Loss 389.9 04/03/2011 RUTHIE GONSALES Active Out Patient medications: Active Outpatient Medications (including Supplies): Active Outpatient Medications [...] ONE CAPSULE BY MOUTH ACTIVE ONCE DAILY Imaging reports: Lab Data: CHEM 7 TREND LAB CUMULATIVE SELECTED Collection DT Spec GLUCOSE BUN CREATIN Sodium K+/Pot CL CO2 05/08/2023 16:00 SERUM 205 H 34 H 1.97 H 138 4.4 104 24 02/06/2023 15:33 SERUM 196 H 31 H 1.81 H 136 4.4 105 21 06/27/2022 13:45 SERUM 121 H 29 H 1.78 H 141 4.3 103 26 03/10/2022 14:17 SERUM 104 H 29 H 1.70 H 139 4.1 102 27 06/26/2020 10:10 SERUM 183 H 24 1.16 138 4.0 102 22 LAB CUMULATIVE SELECTED 2 No selection items chosen for this component. CHEM 7 Results Collection DT Spec Sodium K+/Pot CL CO2 GLUCOSE BUN 05/08/2023 16:00 SERUM 138 4.4 104 24 205 H 34 H 02/06/2023 15:33 SERUM 136 4.4 105 21 196 H 31 H HEMOGLOBIN A1C TREND Collection DT Spec HGBA1c 05/08/2023 16:00 BLOOD 9.4 H 02/06/2023 15:33 BLOOD 9.7 H 06/27/2022 13:45 BLOOD 7.2 H 03/10/2022 14:17 BLOOD 7.4 H 06/26/2020 10:10 BLOOD 7.5 H ALBUMIN Collection DT Specimen Test Name Result Units Ref Range 05/08/2023 16:00 SERUM ALBUMIN 4.2 g/dL 3.5 - 5.0 BMI:BMI: 36.4 PE:General: Morbidly obese 83-year-old male awake alert oriented x3, pleasant cooperative no distress. Bilateral 1+ ankle foot edema No erythema Mild dopplerable DP and PT pulses Skin warm pink well-hydrated Diminished sensation to Caldwell Mayra monofilament at distal toes. No pedal ankle or leg hair present Nails dystrophic but no clinical signs of infection Well-healed and stable amputation of lesser toe 3 left foot Deviated second toe in the transverse plane High-pressure callus submetatarsal 2 debrided down to reveal shallow 1 mm x 1 mm ulcer with pink base no tunneling or undermining. Depth of less than 1 mm. Mechanical: Decreased dorsiflexion ability on the left side polio scale 3-4 out of 5 motor strength. Impression: -Obese poorly controlled diabetic with good arterial flow but peripheral edema dropfoot and decreased sensation now with small tiny shallow ulcer under submetatarsal 2 on the left foot without clinical signs of infection most likely result of wearing footwear without adequate cushioning Current footwear the patient present with is extremely warm 30 and poorly supportive with poor cushioning. Plan: -Debrided callus to ulcer today submit to left foot -Gave clear instructions to patient and caregiver to apply bacitracin and Band-Aid at least once a day -Clear instructions not to soak feet -Fit and dispensed new pair of shoes with gel Derm orthotic insole with accommodation to offload second metatarsal on left foot -Return to clinic or emergency room p.r.n. any signs of infection such as increased redness swelling fever chills or nausea increased drainage pain redness streaking of the lower leg, or flulike symptoms. -Recommended follow-up December 13 wound care clinic -Patient may need to go to a double upright external bracing system -In shoe carbon fiber brace difficult and causing wound problems and this neuropathic patient having done so. /pancho/ DANNY BLANK DPM PODIATRY ATTENDING Signed: 12/04/2023 15:14 DANNY BLANK [facility]
--- OUTSIDE RECORDS SUMMARY | 2024-10-31 17:02 | XMS_ITS | Encounter Summary ---
Author Organization [facility] Address [address] [place] [address] Care Team Providers Care Pantographer Name Role Phone Ember Guerra MD Primary Care Provider Encounter Details Date Type Department Care Team (Late st Contact Info) Description 07/30/[address] [facility] Lab [address] [facility] [place] [address] Ember Guerra MD [address] [place] [address] Other viral infections of unspecified site Social [...] Travel phlebotomy fee (08/01/2024 7:28 AM EST) [facility] TRAVEL PHLEBOTOMY FEE Completed 08/01/2024 10:01 AM EST [facility] ([facility]) [facility] Blood Venous blood specimen / Unknown Venipuncture / Unknown 08/01/2024 7:28 AM EST 08/01/2024 9:25 AM EST Ember Guerra MD LAB BLOOD ORDERABLES [facility] [address] [place] [address], * (ABNORMAL) Basic metabolic panel (08/01/2024 7:28 AM EST) Sodium 138 133 - 145 mmol/L LAB CHEMISTRY METHOD 08/01/2024 10:56 AM [facility] Potassium 4.1 3.5 - 5.5 mmol/L LAB CHEMISTRY METHOD 08/01/2024 10:56 AM [facility] Chloride 103 96 - 110 mmol/L LAB CHEMISTRY METHOD 08/01/2024 10:56 AM [facility] CO2 29 21 - 32 mmol/L LAB CHEMISTRY METHOD 08/01/2024 10:56 AM [facility] Anion Gap 6 3 - 11 LAB CHEMISTRY METHOD 08/01/2024 10:56 AM [facility] Glucose 136(H) 70 - 100 mg/dL LAB CHEMISTRY METHOD 08/01/2024 10:56 AM [facility] BUN 28(H) 5 - 25 mg/dL LAB CHEMISTRY METHOD 08/01/2024 10:56 AM [facility] Creatinine 1.51(H) 0.70 - 1.30 mg/dL LAB CHEMISTRY METHOD 08/01/2024 10:56 AM [facility] eGFR 46(L) >=60 mL/min/1. 73m2 LAB CHEMISTRY METHOD 08/01/2024 10:56 AM [facility] Comment:Calculation based on the??Chronic Kidney Disease Epidemiology Collaboration (CKD-EPI) equation refit??without adjustment for race. BUN/Creatinine Ratio 18.5 LAB CHEMISTRY METHOD 08/01/2024 10:56 AM [facility] Calcium 9.2 8.5 - 10.5 mg/dL LAB CHEMISTRY METHOD 08/01/2024 10:56 AM [facility] Blood Venous blood specimen / Unknown Venipuncture / Unknown 08/01/2024 7:28 AM EST 08/01/2024 9:25 AM EST Ember Guerra MD LAB BLOOD ORDERABLES [facility] [address] [place] [address], * (ABNORMAL) Complete blood count (08/01/2024 7:28 AM EST) WBC 8.0 4.8 - 10.8 K/mcL LAB HEMETOLOGY METHOD 08/01/2024 10:46 AM [facility] RBC 5.10 4.50 - 5.50 M/mcL LAB HEMETOLOGY METHOD 08/01/2024 10:46 AM [facility] Hemoglobin 13.5 13.5 - 17.5 g/dL LAB HEMETOLOGY METHOD 08/01/2024 10:46 AM [facility] Hematocrit 42.8 42.0 - 54.0 % LAB HEMETOLOGY METHOD 08/01/2024 10:46 AM [facility] MCV 83.6 79.0 - 98.0 FL LAB HEMETOLOGY METHOD 08/01/2024 10:46 AM [facility] MCH 26.4(L) 27.0 - 32.0 pcg LAB HEMETOLOGY METHOD 08/01/2024 10:46 AM [facility] MCHC 31.5(L) 32.0 - 37.0 g/dL LAB HEMETOLOGY METHOD 08/01/2024 10:46 AM [facility] RDW 14.4 11.0 - 15.0 % LAB HEMETOLOGY METHOD 08/01/2024 10:46 AM EST [facility] Platelets 242 130 - 400 K/mcL LAB HEMETOLOGY METHOD 08/01/2024 10:46 AM [facility] MPV 11.2(H) 7.0 - 11.0 FL LAB HEMETOLOGY METHOD 08/01/2024 10:46 AM EST [facility] NRBC 0.0 <1.0 % LAB HEMETOLOGY METHOD 08/01/2024 10:46 AM [facility] NRBC Absolute 0.00 <0.10 K/mcL LAB HEMETOLOGY METHOD 08/01/2024 10:46 AM [facility] Blood Venous blood specimen / Unknown Venipuncture / Unknown 08/01/2024 7:28 AM EST 08/01/2024 9:25 AM EST Ember Guerra MD LAB BLOOD ORDERABLES [facility] [address] [place], [place] [address] [phone] documented in this encounter Visit Diagnoses Diagnosis Other viral infections of unspecified site documented in this encounter Care Teams Pantographer Relationship Specialty Start Date End Date Ember Guerra MD [address] [place] [address] [address] [place] [address] PCP - General Geriatric Medicine 08/11/24 documented as of this encounter
--- OUTSIDE RECORDS SUMMARY | 2024-10-31 17:02 | XMS_ITS | Encounter Summary ---
Author Organization [facility] Address [address] [place] [address] Care Team Providers Care [employer] Name Role Phone Ember Guerra MD Primary Care Provider [phone] Encounter Details Date Type Department Care Team (Late st Contact Info) Description 08/11/2024 Lab Requisition [facility] [address] [place] [address] Ember Guerra MD [address] [place] [address] Vitamin D deficiency, unspecified; Other viral infections of unspecified site; Unsteadiness on feet; Muscle weakness (generalized); Acute kidney failure, unspecified (CMS/HCC); Shortness of breath; 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; Essential (primary) [...] Shortness of breath 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 Essential (primary) 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) COMPLETE BLOOD COUNT Routine 08/11/2024 6:08 AM EST Vitamin D deficiency, unspecified Other viral infections of unspecified site Unsteadiness on feet Muscle weakness (generalized) Acute kidney failure, unspecified (CMS/HCC) Shortness of breath 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 Essential (primary) 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) THYROID STIMULATING HORMONE Routine 08/11/2024 6:08 AM EST Vitamin D deficiency, unspecified Other viral infections of unspecified site Unsteadiness on feet Muscle weakness (generalized) Acute kidney failure, unspecified (CMS/HCC) Shortness of breath 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 Essential (primary) 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) HEMOGLOBIN A1C Routine 08/11/2024 6:08 AM EST Vitamin D deficiency, unspecified Other viral infections of unspecified site Unsteadiness on feet Muscle weakness (generalized) Acute kidney failure, unspecified (CMS/HCC) Shortness of breath 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 Essential (primary) 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) FOLATE Routine 08/11/2024 6:08 AM EST Vitamin D deficiency, unspecified Other viral infections of unspecified site Unsteadiness on feet Muscle weakness (generalized) Acute kidney failure, unspecified (CMS/HCC) Shortness of breath 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 Essential (primary) 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) VITAMIN B12 Routine 08/11/2024 6:08 AM EST Vitamin D deficiency, unspecified Other viral infections of unspecified site Unsteadiness on feet Muscle weakness (generalized) Acute kidney failure, unspecified (CMS/HCC) Shortness of breath 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 Essential (primary) 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) COMPREHENSIVE METABOLIC PANEL Routine 08/11/2024 6:08 AM EST Vitamin D deficiency, unspecified Other viral infections of unspecified site Unsteadiness on feet Muscle weakness (generalized) Acute kidney failure, unspecified (CMS/HCC) Shortness of breath 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 217 mg/dL LAB CHEMISTRY METHOD 08/11/2024 10:54 AM EST [facility] Blood Venous blood specimen / Unknown Venipuncture / Unknown 08/11/2024 6:08 AM EST 08/11/2024 7:48 AM EST Ember Guerra MD LAB BLOOD ORDERABLES Performing Organization Address City/[facility]/ZIP Co de Phone Number [facility] [address] [place] [address], * (ABNORMAL) Vitamin D 25 hydroxy (08/11/2024 6:08 AM EST) [facility] Vit D, 25-Hydroxy 21.0(L) 30.0 - 80.0 ng/mL LAB CHEMISTRY METHOD 08/11/2024 9:02 AM EST [facility] Blood Venous blood specimen / Unknown Venipuncture / Unknown 08/11/2024 6:08 AM EST 08/11/2024 7:48 AM EST Ember Guerra MD LAB BLOOD ORDERABLES [facility] [address] [place] [address], * Folate (08/11/2024 6:08 AM EST) [facility] Folate 11.8 2.8 - 17.0 ng/ml LAB CHEMISTRY METHOD 08/11/2024 9:01 AM EST [facility] Blood Venous blood specimen / Unknown Venipuncture / Unknown 08/11/2024 6:08 AM EST 08/11/2024 7:48 AM EST Ember Guerra MD LAB BLOOD ORDERABLES Performing Organization Address City/[facility]/ZIP Co de Phone Number [facility] [address] [place] [address], [place] [phone] * (ABNORMAL) Vitamin B12 (08/11/2024 6:08 AM EST) Pathologist [facility] Vitamin B-12 963(H) 250 - 900 pcg/mL LAB CHEMISTRY METHOD 08/11/2024 9:01 AM EST [facility] Blood Venous blood specimen / Unknown Venipuncture / Unknown 08/11/2024 6:08 AM EST 08/11/2024 7:48 AM EST Ember Guerra MD LAB BLOOD ORDERABLES Performing Organization Address [facility]/ZIP Co de Phone Number [facility] [address] [place] [address], [place] [phone] * (ABNORMAL) Thyroid stimulating hormone (08/11/2024 6:08 AM EST) Pathologist [facility] TSH 4.68(H) 0.40 - 4.00 mcIU/mL LAB CHEMISTRY METHOD 08/11/2024 9:03 AM EST [facility] Blood Venous blood specimen / Unknown Venipuncture / Unknown 08/11/2024 6:08 AM EST 08/11/2024 7:48 AM EST Ember Guerra MD LAB BLOOD ORDERABLES Performing Organization Address City/[facility]/ZIP Co de Phone Number [facility] [address] [place] [address], [place] [phone] * (ABNORMAL) Comprehensive metabolic panel (08/11/2024 6:08 AM EST) Sodium 139 133 - 145 mmol/L LAB CHEMISTRY METHOD 08/11/2024 8:38 AM [facility] Potassium 3.9 3.5 - 5.5 mmol/L LAB CHEMISTRY METHOD 08/11/2024 8:38 AM [facility] Chloride 106 96 - 110 mmol/L LAB CHEMISTRY METHOD 08/11/2024 8:38 AM [facility] CO2 25 21 - 32 mmol/L LAB CHEMISTRY METHOD 08/11/2024 8:38 AM [facility] Anion Gap 8 3 - 11 LAB CHEMISTRY METHOD 08/11/2024 8:38 AM [facility] Glucose 80 70 - 100 mg/dL LAB CHEMISTRY METHOD 08/11/2024 8:38 AM [facility] BUN 31(H) 5 - 25 mg/dL LAB CHEMISTRY METHOD 08/11/2024 8:38 AM [facility] Creatinine 1.61(H) 0.70 - 1.30 mg/dL LAB CHEMISTRY METHOD 08/11/2024 8:38 AM [facility] eGFR 42(L) >=60 mL/min/1. 73m2 LAB CHEMISTRY METHOD 08/11/2024 8:38 AM [facility] Comment:Calculation based on the??Chronic Kidney Disease Epidemiology Collaboration (CKD-EPI) equation refit??without adjustment for race. BUN/Creatinine Ratio 19.3 LAB CHEMISTRY METHOD 08/11/2024 8:38 AM [facility] Calcium 8.8 8.5 - 10.5 mg/dL LAB CHEMISTRY METHOD 08/11/2024 8:38 AM [facility] AST (SGOT) 14 10 - 42 unit/L LAB CHEMISTRY METHOD 08/11/2024 8:38 AM [facility] ALT (SGPT) 24 10 - 60 unit/L LAB CHEMISTRY METHOD 08/11/2024 8:38 AM [facility] Alkaline Phosphatase 92 42 - 121 unit/L LAB CHEMISTRY METHOD 08/11/2024 8:38 AM [facility] Total Protein 5.9(L) 6.0 - 8.0 g/dL LAB CHEMISTRY METHOD 08/11/2024 8:38 AM [facility] Albumin 3.0(L) 3.2 - 5.0 g/dL LAB CHEMISTRY METHOD 08/11/2024 8:38 AM [facility] Total Bilirubin 0.5 0.0 - 1.4 mg/dL LAB CHEMISTRY METHOD 08/11/2024 8:38 AM [facility] Blood Venous blood specimen / Unknown Venipuncture / Unknown 08/11/2024 6:08 AM EST 08/11/2024 7:48 AM EST Ember Guerra MD LAB BLOOD ORDERABLES [facility] [address] [place] [address], * (ABNORMAL) Complete blood count (08/11/2024 6:08 AM EST) WBC 9.6 4.8 - 10.8 K/mcL LAB HEMETOLOGY METHOD 08/11/2024 8:13 AM [facility] RBC 5.00 4.50 - 5.50 M/[facility] LAB HEMETOLOGY METHOD 08/11/2024 8:13 AM [facility] Hemoglobin 13.2(L) 13.5 - 17.5 g/dL LAB HEMETOLOGY METHOD 08/11/2024 8:13 AM [facility] Hematocrit 41.1(L) 42.0 - 54.0 % LAB HEMETOLOGY METHOD 08/11/2024 8:13 AM [facility] MCV 82.7 79.0 - 98.0 FL LAB HEMETOLOGY METHOD 08/11/2024 8:13 AM EST [facility] MCH 26.6(L) 27.0 - 32.0 pcg LAB HEMETOLOGY METHOD 08/11/2024 8:13 AM [facility] MCHC 32.1 32.0 - 37.0 g/dL LAB HEMETOLOGY METHOD 08/11/2024 8:13 AM EST [facility] RDW 14.5 11.0 - 15.0 % LAB HEMETOLOGY METHOD 08/11/2024 8:13 AM EST [facility] Platelets 204 130 - 400 K/mcL LAB HEMETOLOGY METHOD 08/11/2024 8:13 AM [facility] MPV 11.0 7.0 - 11.0 FL LAB HEMETOLOGY METHOD 08/11/2024 8:13 AM EST [facility] NRBC 0.0 <1.0 % LAB HEMETOLOGY METHOD 08/11/2024 8:13 AM [facility] NRBC Absolute 0.00 <0.10 K/mcL LAB HEMETOLOGY METHOD 08/11/2024 8:13 AM [facility] Blood Venous blood specimen / Unknown Venipuncture / Unknown 08/11/2024 6:08 AM EST 08/11/2024 7:48 AM EST Ember Guerra MD LAB BLOOD ORDERABLES [facility] [address] [place] [address], documented in this encounter Visit Diagnoses Diagnosis Vitamin D deficiency, unspecified Other viral infections of unspecified site Unsteadiness on feet Muscle weakness (generalized) Acute kidney failure, unspecified (CMS/HCC) Acute kidney failure, unspecified Shortness of breath 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
--- OUTSIDE RECORDS SUMMARY | 2024-10-31 17:03 | XMS_ITS | Continuity of Care Document ---
Author Name [facility] Organization [facility] Care Team Providers Care Risk Control Director Name Role Phone [facility] Unavailable Unavailable Problems Combined list of problems from Department of Defense and Veterans Affairs facilities. It does not include entries that were removed or entered in error. Problem Status Onset Date Problem Type Date of Resolution Comments Source History of mitral valve replacement Active 1 Condition Dec 28, 2020 Entered By: ABRIL RUBALCAVA Comment: Dr Middleton at [facility]. [facility]. [facility] Amaurosis fugax Active 9 Condition [facility] Diverticulosis, Colonic Active 5 Condition May 06, 2011 Entered By: ABRIL RUBALCAVA Comment: On [address] Justin at [place]. 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 [facility] Obesity Active Condition [facility] Prostate Cancer Active Condition [facility] Type 2 diabetes mellitus uncontrolled Active Condition [facility] Diagnosis: ICD-10-CM Z71.9 Counseling, unspecified Active Diagnosis [facility] Diagnosis: ICD-10-CM I10 Essential (primary) hypertension Active Diagnosis [facility] Diagnosis: ICD-10-CM I50.9 Heart failure, unspecified Active Diagnosis [facility] SIG[facility]REDO [facility] Diagnosis: ICD-10-CM Z76.89 Persons encountering health services in oth circumstances Active Diagnosis [facility] Diagnosis: ICD-10-CM Z74.1 Need for assistance with personal care Active Diagnosis [facility] Diagnosis: ICD-10-CM E11.8 Type 2 diabetes mellitus with unspecified complications Active Diagnosis [facility] Diagnosis: ICD-10-CM E11.9 Type 2 diabetes mellitus without complications Active Diagnosis [facility] Diagnosis: ICD-10-CM E11.621 Type 2 diabetes mellitus with foot ulcer Active Diagnosis [facility] Diagnosis: ICD-10-CM 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 Active Diagnosis [facility] Diagnosis: ICD-10-CM H40.1131 Primary open-angle glaucoma, bilateral, mild stage Active Diagnosis [facility] Diagnosis: ICD-10-CM E11.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 Medication Details Route Status Patient Instructions Prescription Expires Prescription Number Last Dispense Date Ordering Provider Order Date Order Qty Source AMIODARONE HCL 200MG TAB TAKE ONE TABLET BY MOUTH ONCE DAILY ORAL 08/19/2024 [id number] 4 RUTHIE RUBALCAVA 2022 90 [facility] AMLODIPINE BESYLATE 10MG TAB TAKE ONE TABLET BY MOUTH ONCE DAILY FOR BLOOD PRESSURE /HEART, DO NOT TAKE WITH GRAPEFRU IT JUICE ORAL ACTIVE 10/05/2025 [id number] 5 RUTHIE RUBALCAVA 2024 90 [facility] AMLODIPINE BESYLATE 10MG TAB TAKE ONE TABLET BY MOUTH ONCE DAILY FOR BLOOD PRESSURE /HEART, DO NOT TAKE WITH GRAPEFRU IT JUICE ORAL DISCONT INUED 05/25/2025 [id number] 4 RUTHIE RUBALCAVA 2023 90 [facility] AMLODIPINE BESYLATE 10MG TAB TAKE ONE TABLET BY MOUTH ONCE DAILY FOR BLOOD PRESSURE /HEART, DO NOT TAKE WITH GRAPEFRU IT JUICE ORAL DISCONT INUED 06/23/2024 [id number] RUTHIE RUBALCAVA 2022 90 [facility] CLINDAMYCIN HCL 300MG CAP TAKE ONE CAPSULE BY MOUTH THREE TIMES A DAY ORAL 06/23/2024 [id number] BENI MORGAN 2023 30 [facility] CLONIDINE HCL 0.3MG TAB TAKE ONE TABLET BY MOUTH TWICE DAILY TO CONTROL BLOOD PRESSURE ORAL 08/19/2024 [id number] 4 RUTHIE RUBALCAVA 2022 180 [facility] CLOPIDOGREL BISULFATE 75MG TAB TAKE ONE TABLET BY MOUTH ONCE DAILY ORAL ACTIVE 10/05/2025 [id number] 5 RUTHIE RUBALCAVA 2024 90 [facility] CLOPIDOGREL BISULFATE 75MG TAB TAKE ONE TABLET BY MOUTH ONCE DAILY ORAL DISCONT INUED 05/12/2025 [id number] 4 RUTHIE RUBALCAVA 2023 90 [facility] CLOPIDOGREL BISULFATE 75MG TAB TAKE ONE TABLET BY MOUTH ONCE DAILY ORAL DISCONT INUED 01/30/2024 [id number] 4 RA CARRIE ASKEW 2023 90 [facility] CLOPIDOGREL BISULFATE 75MG TAB TAKE ONE TABLET BY MOUTH ONCE DAILY ORAL DISCONT INUED 12/05/2023 [id number] 3 RUTHIE RUBALCAVA 2022 90 [facility] CYANOCOBALA MIN 1000MCG TAB TAKE ONE TABLET BY MOUTH ONCE DAILY FOR VITAMIN SUPPLEME NTATION ORAL 08/19/2024 [id number] 4 RUTHIE RUBALCAVA 2022 90 [facility] DOXYCYCLINE HYCLATE 100MG TAB TAKE ONE TABLET BY MOUTH TWICE DAILY FOR 7 DAYS ORAL DISCONT INUED 03/23/2024 [id number] MARYBETH LINDA ANNY 2023 14 [facility] FUROSEMIDE 20MG TAB TAKE ONE TABLET BY MOUTH ONCE DAILY TO REMOVE FLUID/CO NTROL BLOOD PRESSURE ORAL DISCONT INUED (EDIT) 06/22/2025 [id number] 4 RUTHIE RUBALCAVA 2023 30 [facility] FUROSEMIDE 20MG TAB TAKE ONE TABLET BY MOUTH ONCE DAILY TO REMOVE FLUID/CO NTROL BLOOD PRESSURE ORAL DISCONT INUED 06/23/2024 [id number] 4 RUTHIE RUBALCAVA 2023 30 [facility] FUROSEMIDE 20MG TAB TAKE ONE TABLET BY MOUTH ONCE DAILY TO REMOVE FLUID/CO NTROL BLOOD PRESSURE ORAL DISCONT INUED 05/19/2024 [id number] 4 RA CARRIE ASKEW 2023 30 [facility] FUROSEMIDE 20MG TAB TAKE ONE TABLET BY MOUTH ONCE DAILY TO REMOVE FLUID/CO NTROL BLOOD PRESSURE ORAL DISCONT INUED 10/28/2024 [id number] 4 RA CARRIE ASKEW 2023 30 [facility] FUROSEMIDE 20MG TAB TAKE ONE TABLET BY MOUTH ONCE DAILY TO REMOVE FLUID/CO NTROL BLOOD PRESSURE ORAL DISCONT INUED 06/23/2024 [id number] 3 RUTHIE RUBALCAVA 2022 30 [facility] FUROSEMIDE 40MG TAB TAKE ONE TABLET BY MOUTH ONCE DAILY TO REMOVE FLUID/CO NTROL BLOOD PRESSURE ORAL ACTIVE 10/05/2025 [id number] RUTHIE RUBALCAVA 2024 90 [facility] FUROSEMIDE 40MG TAB TAKE ONE TABLET BY MOUTH ONCE DAILY TO REMOVE FLUID/CO NTROL BLOOD PRESSURE ORAL DISCONT INUED (EDIT) 06/30/2025 [id number] 4 RUTHIE RUBALCAVA 2023 30 [facility] GABAPENTIN 100MG CAP TAKE ONE CAPSULE BY MOUTH TWICE DAILY ORAL 08/19/2024 [id number] 4 RUTHIE RUBALCAVA 2022 180 [facility] GLUCOSE 4GM TAB,CHEW CHEW TWO TABLETS BY MOUTH NEEDED FOR LOW BLOOD SUGAR ORAL ACTIVE 11/01/2024 [id number] 4 RA CARRIE ASKEW 2023 30 [facility] INSULIN,GLA RGINE-YFGN 100UNIT/ML INJ INJECT 42 UNITS SUBCUTAN EOUSLY ONCE DAILY FOR DIABETES SUBCUT ANEOUS HOLD 10/13/2025 [id number] RAMAKRISHNA GALVAN 2024 4 [facility] INSULIN,GLA RGINE-YFGN 100UNIT/ML INJ INJECT 40 UNITS SUBCUTAN EOUSLY ONCE DAILY FOR DIABETES SUBCUT ANEOUS DISCONT INUED (EDIT) 11/01/2024 [id number] 4 RA CARRIE ASKEW 2023 4 [facility] INSULIN,GLA RGINE-YFGN 100UNIT/ML INJ INJECT 40 UNITS SUBCUTAN EOUSLY ONCE DAILY FOR DIABETES SUBCUT ANEOUS DISCONT INUED 11/07/2023 [id number] RUTHIE RUBALCAVA 2022 4 [facility] LATANOPROST 0.005% SOLN,OPH INSTILL 1 DROP INTO THE RIGHT EYE AT BEDTIME FOR WIDE-ANG LE GLAUCOMA OPHTHA LMIC DISCONT INUED 07/02/2024 [id number] CARROLL,MILAGROS EY J 2022 10 [facility] [place] LATANOPROST 0.005% SOLN,OPH INSTILL 1 DROP INTO THE RIGHT EYE AT BEDTIME FOR WIDE-ANG LE GLAUCOMA OPHTHA LMIC 04/13/2024 [id number] CARROLL,MILAGROS EY J 2023 7.5 [facility] [place] POTASSIUM 100MG TAB TAKE ONE TABLET BY MOUTH ONCE DAILY FOR BLOOD PRESSURE /HEART ORAL ACTIVE 10/05/2025 [id number] 5 RUTHIE RUBALCAVA 2024 90 [facility] [place] POTASSIUM 100MG TAB TAKE ONE TABLET BY MOUTH ONCE DAILY FOR BLOOD PRESSURE /HEART ORAL DISCONT INUED 05/25/2025 [id number] 4 RUTHIE RUBALCAVA 2023 90 [facility] [place] POTASSIUM 100MG TAB TAKE ONE TABLET BY MOUTH ONCE DAILY FOR BLOOD PRESSURE /HEART ORAL DISCONT INUED 08/19/2024 [id number] 4 RUTHIE RUBALCAVA 2022 90 [facility] MELATONIN 5MG CAP/TAB TAKE ONE CAPSULE/ TABLET BY MOUTH EVERY EVENING ORAL 02/07/2024 [id number] 4 RUTHIE RUBALCAVA 2022 90 [facility] METOPROLOL SUCCINATE 50MG TAB,SA TAKE ONE TABLET BY MOUTH ONCE DAILY FOR BLOOD PRESSURE /HEART ORAL DISCONT INUED 11/29/2023 [id number] Canelo ARAMBULA 2022 90 [facility] METOPROLOL SUCCINATE 50MG TAB,SA TAKE ONE TABLET BY MOUTH ONCE DAILY FOR BLOOD PRESSURE /HEART ORAL 08/19/2024 [id number] 4 RUTHIE RUBALCAVA 2023 90 [facility] NITROFURANT OIN MONOHYDRATE /MACROCRYST ALLINE 100MG CAP,SA TAKE ONE CAPSULE BY MOUTH TWICE DAILY FOR 7 DAYS ORAL 02/24/2024 [id number] Juan J BETANCOURT 2023 14 [facility] PRAVASTATIN NA 40MG TAB TAKE ONE TABLET BY MOUTH ONCE DAILY FOR CHOLESTE ROL ORAL 08/19/2024 [id number] RUTHIE RUBALCAVA 2022 90 [facility] SENNOSIDES 8.6MG TAB TAKE ONE TABLET BY MOUTH ONCE DAILY NEEDED CONSTIPA TION ORAL ACTIVE 11/01/2024 [id number] 4 RA CARRIE ASKEW 2023 100 [facility] SENNOSIDES 8.6MG TAB TAKE ONE TABLET BY MOUTH ONCE DAILY NEEDED CONSTIPA TION ORAL DISCONT INUED 10/02/2023 [id number] RUTHIE RUBALCAVA 2022 100 [facility] TAMSULOSIN HCL 0.4MG CAP TAKE ONE CAPSULE BY MOUTH ONCE DAILY ORAL DISCONT INUED 09/20/2023 [id number] 3 AUGUSTO DUBOIS 2022 30 [facility] TAMSULOSIN HCL 0.4MG CAP TAKE ONE CAPSULE BY MOUTH ONCE DAILY ORAL 09/16/2024 [id number] 4 RUTHIE RUBALCAVA 2022 30 [facility] Allergies, Adverse Reactions, Alerts Combined list of allergies from Department of Defense and Veterans Affairs facilities. It does not include entries that were removed or entered in error. Substance Category Reaction Severity Reaction type Status Date Reported Comments Source HCTZ HYDROCHLOROT HIAZIDE Propensity to adverse reactions to drug (finding) active 1 [facility] LISINOPRIL Propensity to adverse reactions to drug (finding) Dizziness active 2 [facility] SEMAGLUTIDE Propensity to adverse reactions to drug (finding) Nausea and vomiting, Nausea active 3 [facility] Immunizations Combined list of available immunizations from the Department of Defense and Veterans Affairs facilities. Immunization Series Date Given Administered By Site Reaction Lot Number CVX Code Drug Power Shear Operator Status Comments Source INFLUENZA, HIGH-DOSE, TRIVALENT, PF 2024 MEY MARTI E LEFT DELTO ID [id number] A [facility] RSV, RECOMBINANT, PROTEIN SUBUNIT RSVPREF3, ADJUVANT RECONSTITUTED , 0.5 ML, PF 1 2024 MEY MARTI E LEFT DELTO ID [id number] 303 complet [facility] COVID-19 (MODERNA), MRNA, LNP-S, PF, 50 MCG/0.5 ML (AGES 12+ YEARS) 1 2023 [facility] MARTI E LEFT ARM [id number] 312 complet ed [facility] INFLUENZA, HIGH-DOSE, QUADRIVALENT 2023 MEY MARTI E LEFT DELTO ID [id number] 197 complet [facility] TDAP 2022 OXANA MERINO LEFT DELTO ID [id number] 115 complet [facility] INFLUENZA VACCINE, QUADRIVALENT, ADJUVANTED 2021 205 complet ed [facility] COVID-19 (MODERNA), MRNA, LNP-S, PF, 100 MCG/0.5 ML DOSE 2 2020 207 complet ed MOD; [id number]; 1 [facility] COVID-19 (MODERNA), MRNA, LNP-S, PF, 100 MCG/0.5 ML DOSE 1 2020 207 complet ed MOD; [id number]; 1 [facility] INFLUENZA, INJECTABLE, QUADRIVALENT, PRESERVATIVE FREE 2019 150 complet ed [facility] INFLUENZA, INJECTABLE, QUADRIVALENT, PRESERVATIVE FREE 2018 150 complet ed [facility] INFLUENZA, SEASONAL, INJECTABLE 2017 141 complet ed [facility] ZOSTER RECOMBINANT 2 2017 187 complet ed [facility] ZOSTER RECOMBINANT 1 2017 187 complet ed [facility] INFLUENZA, SEASONAL, INJECTABLE 2017 141 complet ed Site: Left Deltoid [facility] FLU,3 YRS (HISTORICAL) 2015 88 complet ed Site: Left Deltoid [facility] PNEUMOCOCCAL CONJUGATE PCV 13 2015 133 complet ed [facility] ZOSTER (SHINGLES) (HISTORICAL) 2015 121 complet ed Proximal Right Arm [facility] FLU,3 YRS (HISTORICAL) 2014 88 complet ed [facility] FLU,3 YRS (HISTORICAL) 2012 88 complet ed . [facility] DTAP, UNSPECIFIED FORMULATION 2012 107 complet ed Site: Right Deltoid [facility] FLU,3 YRS (HISTORICAL) 2012 88 complet ed [facility] FLU,3 YRS (HISTORICAL) 2010 88 complet ed Site: Right Deltoid [facility] PNEUMOCOCCAL, UNSPECIFIED FORMULATION 2010 109 complet ed [facility] FLU,3 YRS (HISTORICAL) 2009 88 complet ed [facility] TD(ADULT) UNSPECIFIED FORMULATION 2008 139 complet ed [facility] Results Combined list of recent chemistry, hematology and other laboratory results from Department of Defense and Veterans Affairs, ranging from 15 months to all on record, depending upon the facility. Order Name Results Value Reference Range Date Interpretation Specimen Comments Source BASIC METABOLIC PANEL (fasting) UREA NITROGEN [MASS/VOLUM E] IN SERUM OR PLASMA 25 mg/dL 7 - 25 10/04 Specimen Type: SERUM No comment entered. Ordering Provider: Eileen RUBALCAVA Report Released Date/Time: Sep 14, 2024 03:33 PM Reporting Lab: [facility] [address] [address] Performing Lab: [facility] [address] [address] [facility] BASIC METABOLIC PANEL (fasting) GLUCOSE [MASS/VOLUM E] IN SERUM OR PLASMA 192 mg/dL 65 - 100 10/04 H Specimen Type: SERUM No comment entered. Ordering Provider: Eileen RUBALCAVA Report Released Date/Time: Sep 14, 2024 03:33 PM Reporting Lab: [address] [address] Performing Lab: [facility] [address] [address] [facility] BASIC METABOLIC PANEL (fasting) SODIUM [MOLES/VOLU ME] IN SERUM OR PLASMA 138 mmol/L 135 - 145 10/04 Specimen Type: SERUM No comment entered. Ordering Provider: Eileen RUBALCAVA Report Released Date/Time: Sep 14, 2024 03:33 PM Reporting Lab: [facility] [address] [address] Performing Lab: [facility] [address] [facility] BASIC METABOLIC PANEL (fasting) POTASSIUM [MOLES/VOLU ME] IN SERUM OR PLASMA 4.3 mmol/L 3.5 - 5.0 10/04 Specimen Type: SERUM No comment entered. Ordering Provider: Eileen RUBALCAVA Report Released Date/Time: Sep 14, 2024 03:33 PM Reporting Lab: [facility] [address] [address] Performing Lab: [facility] [place] [facility] [address] [facility] [address] [facility] BASIC METABOLIC PANEL (fasting) CHLORIDE [MOLES/VOLU ME] IN SERUM OR PLASMA 104 mmol/L 100 - 110 10/04 Specimen Type: SERUM No comment entered. Ordering Provider: Eileen RUBALCAVA Report Released Date/Time: Sep 14, 2024 03:33 PM Reporting Lab: [facility] [place] [facility] [address] [facility] [address] Performing Lab: [facility] [address] [facility] [address] [facility] BASIC METABOLIC PANEL (fasting) CARBON DIOXIDE, TOTAL [MOLES/VOLU ME] IN SERUM OR PLASMA 23 meq/L 20 - 30 10/04 Specimen Type: SERUM No comment entered. Ordering Provider: Eileen RUBALCAVA Report Released Date/Time: Sep 14, 2024 03:33 PM Reporting Lab: [facility] [address] [facility] [address] Performing Lab: [facility] [address] [facility] [address] [facility] BASIC METABOLIC PANEL (fasting) CREATININE [MASS/VOLUM E] IN SERUM OR PLASMA 1.53 mg/dL 0.50 - 1.40 10/04 H Specimen Type: SERUM No comment entered. Ordering Provider: Eileen RUBALCAVA Report Released Date/Time: Sep 14, 2024 03:33 PM Reporting Lab: [facility] [address] [facility] [address] Performing Lab: [facility] [address] [facility] [address] [facility] BASIC METABOLIC PANEL (fasting) GLOMERULAR FILTRATION RATE/1.73 SQ M.PREDICTED [VOLUME RATE/AREA] IN SERUM, PLASMA OR BLOOD BY CREATININE- BASED FORMULA (CKD-EPI 2020) 45 mL/min 60 10/04 L Specimen Type: SERUM No comment entered. Ordering Provider: Eileen RUBALCAVA Report Released Date/Time: Sep 14, 2024 03:33 PM Reporting Lab: [facility] [place] [facility] [address] [facility] [address] Performing Lab: [facility] [place] [facility] [address] [facility] [address] [facility] [facility] BNP (Natriure tic Peptide Brain) NATRIURETIC PEPTIDE B [MASS/VOLUM E] IN SERUM OR PLASMA 291 pg/mL 10 - 100 10/04 H Specimen Type: PLASMA No comment entered. Ordering Provider: Eileen RUBALCAVA Report Released Date/Time: Sep 14, 2024 03:33 PM Reporting Lab: [facility] [place] [facility] [address] [facility] [address] Performing Lab: [facility] [place] [facility] [address] [facility] [address] [facility] [place] [facility] CBC LEUKOCYTES [#/VOLUME] IN BLOOD BY AUTOMATED COUNT 9.81 10*3/u L 4.50 - 11.00 10/04 Specimen Type: BLOOD No comment entered. Ordering Provider: Eileen RUBALCAVA Report Released Date/Time: Sep 14, 2024 03:33 PM Reporting Lab: [facility] [place] [address] [address] Performing Lab: [facility] [place] [facility] [address] [facility] [address] [facility] [place] [facility] CBC ERYTHROCYTE S [#/VOLUME] IN BLOOD BY AUTOMATED COUNT 5.95 10*6/u L 4.23 - 5.66 10/04 H Specimen Type: BLOOD No comment entered. Ordering Provider: Eileen RUBALCAVA Report Released Date/Time: Sep 14, 2024 03:33 PM Reporting Lab: [facility] [place] [facility] [address] [facility] [address] Performing Lab: [facility] [place] [address] [address] [facility] [place] [facility] CBC HEMOGLOBIN [MASS/VOLUM E] IN BLOOD 15.9 g/dL 12.8 - 17 10/04 Specimen Type: BLOOD No comment entered. Ordering Provider: Eileen RUBALCAVA Report Released Date/Time: Sep 14, 2024 03:33 PM Reporting Lab: [facility] [place] [facility] [address] [facility] [address] Performing Lab: [facility] [place] [facility] [address] [facility] [address] [facility] [place] [facility] CBC HEMATOCRIT [VOLUME FRACTION] OF BLOOD BY AUTOMATED COUNT 48.7 39.2 - 50.4 10/04 Specimen Type: BLOOD No comment entered. Ordering Provider: Eileen RUBALCAVA Report Released Date/Time: Sep 14, 2024 03:33 PM Reporting Lab: [facility] [place] [address] [address] Performing Lab: [facility] [place] [address] [address] [facility] [place] [facility] CBC MCV [ENTITIC VOLUME] BY AUTOMATED COUNT 81.8 fL 82 - 99 10/04 L Specimen Type: BLOOD No comment entered. Ordering Provider: Eileen RUBALCAVA Report Released Date/Time: Sep 14, 2024 03:33 PM Reporting Lab: [facility] [place] [address] [address] Performing Lab: [facility] [place] [address] [address] [facility] [place] [facility] CBC MCHC [MASS/VOLUM E] BY AUTOMATED COUNT 32.6 g/dL 30.8 - 35.1 10/04 Specimen Type: BLOOD No comment entered. Ordering Provider: Eileen RUBALCAVA Report Released Date/Time: Sep 14, 2024 03:33 PM Reporting Lab: [facility] [place] [address] [address] Performing Lab: [facility] [place] [facility] [address] [facility] [address] [facility] [place] [facility] CBC PLATELETS [#/VOLUME] IN BLOOD BY AUTOMATED COUNT 239 10*3/u L 140 - 360 10/04 Specimen Type: BLOOD No comment entered. Ordering Provider: Eileen RUBALCAVA Report Released Date/Time: Sep 14, 2024 03:33 PM Reporting Lab: [facility] [place] [facility] [address] [facility] [address] Performing Lab: [facility] [place] [facility] [address] [facility] [address] [facility] [facility] CBC ERYTHROCYTE DISTRIBUTIO N WIDTH [RATIO] BY AUTOMATED COUNT 14.5 12.0 - 16.0 10/04 Specimen Type: BLOOD No comment entered. Ordering Provider: Eileen RUBALCAVA Report Released Date/Time: Sep 14, 2024 03:33 PM Reporting Lab: [facility] [place] [facility] [address] [facility] [address] Performing Lab: [facility] [place] [facility] [address] [facility] [address] [facility] [place] [facility] CBC MCH [ENTITIC MASS] BY AUTOMATED COUNT 26.7 pg 26.2 - 32.6 10/04 Specimen Type: BLOOD No comment entered. Ordering Provider: Eileen RUBALCAVA Report Released Date/Time: Sep 14, 2024 03:33 PM Reporting Lab: [facility] [place] [facility] [address] [facility] [address] Performing Lab: [facility] [place] [facility] [address] [facility] [facility] [address] [facility] [place] [facility] HEMOGLOBI N A1C PANEL HEMOGLOBIN A1C/HEMOGLO BIN.TOTAL IN BLOOD BY HPLC 9.2 4.0 - 5.6 10/04 H Specimen Type: BLOOD Comment: Values obtained from A1C measurement s can vary. For atypical A1C assays, a reported value of 7.0 could actually be between 6.72 and 7.28 if measured by a reference method. A reported value of 9.0 could actually be between 8.73 and 9.27. Ref: http://[email or web address].org/[place] Pdata.asp Ordering Provider: Eileen RUBALCAVA Report Released Date/Time: Sep 14, 2024 03:33 PM Reporting Lab[facility] [place] [address] [address] Performing Lab: [facility] [address] [address] [facility] LIPID PANEL FASTING CHOLESTEROL [MASS/VOLUM E] IN SERUM OR PLASMA 190 mg/dL 10/04 Specimen Type: SERUM No comment entered. Ordering Provider: Eileen RUBALCAVA Report Released Date/Time: Sep 14, 2024 03:33 PM Reporting Lab: [facility] [place] [address] [address] Performing Lab: [facility] [address] [address] [facility] LIPID PANEL FASTING TRIGLYCERID E [MASS/VOLUM E] IN SERUM OR PLASMA 65 mg/dL 0 - 150 10/04 Specimen Type: SERUM No comment entered. Ordering Provider: Eileen RUBALCAVA Report Released Date/Time: Sep 14, 2024 03:33 PM Reporting Lab: [facility] [place] [address] [address] Performing Lab: [facility] [place] [address] [address] [facility] LIPID PANEL FASTING CHOLESTEROL IN LDL [MASS/VOLUM E] IN SERUM OR PLASMA BY CALCULATION 115 mg/dL 0 - 129 10/04 Specimen Type: SERUM No comment entered. Ordering Provider: Eileen RUBALCAVA Report Released Date/Time: Sep 14, 2024 03:33 PM Reporting Lab: [facility] [place] [address] [address] Performing Lab: [facility] [place] [facility] [address] [facility] [address] [facility] [place] [facility] LIPID PANEL FASTING CHOLESTEROL .TOTAL/CHOL ESTEROL IN HDL [MASS RATIO] IN SERUM OR PLASMA 3.1 10/04 Specimen Type: SERUM No comment entered. Ordering Provider: Eileen RUBALCAVA Report Released Date/Time: Sep 14, 2024 03:33 PM Reporting Lab: [facility] [place] [facility] [address] [facility] [address] Performing Lab: [facility] [place] [facility] [address] [facility] [address] [facility] [place] [facility] LIPID PANEL FASTING CHOLESTEROL IN HDL [MASS/VOLUM E] IN SERUM OR PLASMA 62 mg/dL 40 - 60 10/04 H Specimen Type: SERUM No comment entered. Ordering Provider: Eileen RUBALCAVA Report Released Date/Time: Sep 14, 2024 03:33 PM Reporting Lab: [facility] [place] [facility] [address] [facility] [address] Performing Lab: [facility] [place] [facility] [address] [facility] [address] [facility] LIVER FUNCTION PROTEIN [MASS/VOLUM E] IN SERUM OR PLASMA 8.2 g/dL 6.0 - 8.3 10/04 Specimen Type: SERUM No comment entered. Ordering Provider: Eileen RUBALCAVA Report Released Date/Time: Sep 14, 2024 03:33 PM Reporting Lab: [facility] [place] [facility] [address] [facility] [address] Performing Lab: [facility] [place] [facility] [address] [facility] [address] [facility] [place] [facility] LIVER FUNCTION ALBUMIN [MASS/VOLUM E] IN SERUM OR PLASMA 4.2 g/dL 3.5 - 5.0 10/04 Specimen Type: SERUM No comment entered. Ordering Provider: Eileen RUBALCAVA Report Released Date/Time: Sep 14, 2024 03:33 PM Reporting Lab: [facility] [place] [facility] [address] [facility] [address] Performing Lab: [facility] [place] [facility] [address] [facility] [address] [facility] [place] [facility] LIVER FUNCTION ALKALINE PHOSPHATASE [ENZYMATIC ACTIVITY/VO LUME] IN SERUM OR PLASMA 119 U/L 40 - 150 10/04 Specimen Type: SERUM No comment entered. Ordering Provider: Eileen RUBALCAVA Report Released Date/Time: Sep 14, 2024 03:33 PM Reporting Lab: [facility] [place] [facility] [address] [facility] [address] Performing Lab: [facility] [place] [facility] [address] [facility] [address] [facility] [place] [facility] LIVER FUNCTION ASPARTATE AMINOTRANSF ERASE [ENZYMATIC ACTIVITY/VO LUME] IN SERUM OR PLASMA 19 U/L 5 - 34 10/04 Specimen Type: SERUM No comment entered. Ordering Provider: Eileen RUBALCAVA Report Released Date/Time: Sep 14, 2024 03:33 PM Reporting Lab: [facility] [place] [facility] [address] [facility] [address] Performing Lab: [facility] [place] [facility] [address] [facility] [address] [facility] [place] [facility] LIVER FUNCTION ALANINE AMINOTRANSF ERASE [ENZYMATIC ACTIVITY/VO LUME] IN SERUM OR PLASMA 23 U/L 10/04 Specimen Type: SERUM No comment entered. Ordering Provider: Eileen RUBALCAVA Report Released Date/Time: Sep 14, 2024 03:33 PM Reporting Lab: [facility] [place] [facility] [address] [facility] [address] Performing Lab: [facility] [place] [facility] [address] [facility] [address] [facility] [place] [facility] LIVER FUNCTION BILIRUBIN.T OTAL [MASS/VOLUM E] IN SERUM OR PLASMA 0.6 mg/dL 0.2 - 1.2 10/04 Specimen Type: SERUM No comment entered. Ordering Provider: Eileen RUBALCAVA Report Released Date/Time: Sep 14, 2024 03:33 PM Reporting Lab: [facility] [place] [facility] [address] [facility] [address] Performing Lab: [facility] [place] [facility] [address] [facility] [address] [facility] [place] [facility] MICROALBU MIN CREATININ E RATIO PANEL MICROALBUMI N/CREATININ E [MASS RATIO] IN URINE 2418.7 mg/g 0 - 29.9 10/04 H Specimen Type: URINE No comment entered. Ordering Provider: Eileen RUBALCAVA Report Released Date/Time: Sep 14, 2024 03:33 PM Reporting Lab: [facility] [place] [facility] [address] [facility] [address] Performing Lab: [facility] [place] [facility] [address] [facility] [address] [facility] [place] [facility] MICROALBU MIN CREATININ E RATIO PANEL MICROALBUMI N [MASS/VOLUM E] IN URINE 186.0 mg/dL 10/04 Specimen Type: URINE No comment entered. Ordering Provider: Eileen RUBALCAVA Report Released Date/Time: Sep 14, 2024 03:33 PM Reporting Lab: [facility] [place] [facility] [address] [facility] [address] Performing Lab: [facility] [place] [facility] [address] [facility] [address] [facility] [place] [facility] MICROALBU MIN CREATININ E RATIO PANEL CREATININE [MASS/VOLUM E] IN URINE 76.90 mg/dL 10/04 Specimen Type: URINE No comment entered. Ordering Provider: Eileen RUBALCAVA Report Released Date/Time: Sep 14, 2024 03:33 PM Reporting Lab: [facility] [place] [facility] [address] [facility] [address] Performing Lab: [facility] [place] [facility] [address] [facility] [address] [facility] [place] [facility] VITAMIN B12 COBALAMIN (VITAMIN B12) [MASS/VOLUM E] IN SERUM OR PLASMA 597 pg/mL 200 - 900 10/04 Specimen Type: SERUM No comment entered. Ordering Provider: Eileen RUBALCAVA Report Released Date/Time: Sep 14, 2024 03:33 PM Reporting Lab: [facility] [place] [address] Performing Lab: [facility] [place] [address] [address] [facility] [place] [facility] HEMOGLOBI N A1C PANEL HEMOGLOBIN A1C/HEMOGLO BIN.TOTAL IN BLOOD BY HPLC 9.7 4.0 - 5.6 12/03 H Specimen Type: BLOOD Comment: Values obtained from A1C measurement s can vary. For atypical A1C assays, a reported value of 7.0 could actually be between 6.72 and 7.28 if measured by a reference method. A reported value of 9.0 could actually be between 8.73 and 9.27. Ref: http://www. ngsp.org/[place] Pdata.asp Ordering Provider: Eileen RUBALCAVA Report Released Date/Time: Oct 21, 2023 11:41 AM Reporting Lab: [facility] [address] Performing Lab: [facility] [address] [facility] MICROALBU MIN CREATININ E RATIO PANEL MICROALBUMI N/CREATININ E [MASS RATIO] IN URINE 321.0 mg/g 0 - 29.9 12/03 H Specimen Type: URINE No comment entered. Ordering Provider: Eileen RUBALCAVA Report Released Date/Time: Oct 21, 2023 11:41 AM Reporting Lab: [facility] [place] [address] [address] Performing Lab: [facility] [address] [facility] MICROALBU MIN CREATININ E RATIO PANEL MICROALBUMI N [MASS/VOLUM E] IN URINE 20.2 mg/dL 12/03 Specimen Type: URINE No comment entered. Ordering Provider: Eileen RUBALCAVA Report Released Date/Time: Oct 21, 2023 11:41 AM Reporting Lab: [facility] [place] [facility] [address] [facility] [address] Performing Lab: [facility] [place] [facility] [address] [facility] [address] [facility] [place] [facility] MICROALBU MIN CREATININ E RATIO PANEL CREATININE [MASS/VOLUM E] IN URINE 62.93 mg/dL 12/03 Specimen Type: URINE No comment entered. Ordering Provider: Eileen RUBALCAVA Report Released Date/Time: Oct 21, 2023 11:41 AM Reporting Lab: [facility] [place] [facility] [address] [facility] [address] Performing Lab: [facility] [place] [facility] [address] [facility] [address] [facility] [place] [facility] Vital Signs Combined list of inpatient and outpatient Vital Signs from Department of Defense and Veterans Affairs, ranging from 12 months to all on record, depending upon the facility. Vital Sign Value Date Comments Source SYSTOLIC BLOOD PRESSURE 186 10/04/19 25 15:18:22 [facility] [place] [facility] DIASTOLIC BLOOD PRESSURE 74 025 15:18:22 [facility] [place] [facility] PULSE OXIMETRY 95 10/04/2024 15:18:22 [facility] [place] [facility] WEIGHT 242 10/04/2024 15:18:22 [facility] [place] [facility] BMI 38kg/m2 10/04/2024 15:18:22 [facility] [place] [facility] PAIN 0 10/04/2024 15:18:22 [facility] [place] [facility] TEMPERATURE 98.2 10/04/2024 15:18:22 [facility] [place] [facility] PULSE 88 10/04/2024 15:18:22 [facility] [place] [facility] RESPIRATION 16 10/04/2024 15:18:22 [facility] [place] [facility] SYSTOLIC BLOOD PRESSURE 144 05/24/20 24 15:43:51 [facility] [place] [facility] DIASTOLIC BLOOD PRESSURE 68 024 15:43:51 [facility] [place] [facility] PULSE OXIMETRY 91 05/24/2024 15:43:51 [facility] [place] [facility] WEIGHT 238 05/24/2024 15:43:51 [facility] [place] [facility] BMI 37kg/m2 05/24/2024 15:43:51 [facility] [place] [facility] PAIN 0 05/24/2024 15:43:51 [facility] [place] [facility] TEMPERATURE 98.9 05/24/2024 15:43:51 [facility] [place] [facility] PULSE 54 05/24/2024 15:43:51 [facility] [place] [facility] RESPIRATION 18 05/24/2024 15:43:51 [facility] [place] [facility] SYSTOLIC BLOOD PRESSURE 140 12/25/19 24 13:52:01 [facility] [place] [facility] DIASTOLIC BLOOD PRESSURE 70 024 13:52:01 [facility] [place] [facility] PULSE OXIMETRY 96 12/25/2023 13:52:01 [facility] [place] [facility] WEIGHT 236 12/25/2023 13:52:01 [facility] [place] [facility] BMI 37kg/m2 12/25/2023 13:52:01 [facility] [place] [facility] PAIN 0 12/25/2023 13:52:01 [facility] [place] [facility] TEMPERATURE 97.4 12/25/2023 13:52:01 [facility] [place] [facility] PULSE 70 12/25/2023 13:52:01 [facility] [place] [facility] RESPIRATION 16 12/25/2023 13:52:01 [facility] [place] [facility] Encounters Combined list of: 1) Encounters from Department of Veterans Affairs facilities going back up to thelast 18 months. 2) Encounters from the Department of Defense facilities going back up to 280 months. Location Location Details Encounter Type Encounter Number Reason For Visit Attending Provider ADM Date DC Date Status Disposition Source [facility] [place] [facility] Outpatient Encounter [id number] 05/08 [facility] [place] [facility] [place] [facility] OFFICE O/P EST LOW 20-29 MIN [id number] Diagnos is: ICD-10- CM I50.9 Heart failure , 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
RUTHIE RUBALCAVA 05/08 [facility] [place] [facility] [place] [facility] MTMS BY PHARM EST 15 MIN [id number] Diagnos is: ICD-10- CM E11.9 Type 2 diabete s mellitu s without complic ations< br/> GDULA,RYAN A 05/08 [facility] [place] [facility] [place] [facility] HC PRO PHONE CALL 11-20 MIN [id number] Diagnos is: ICD-10- CM E11.40 Type 2 diabete s mellitu s with diabeti c neuropa thy, unsp
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
JAVIER ESPAÑA 05/14 [facility] [place] [facility] [place] [facility] Outpatient Encounter [id number] 05/19 [facility] [place] [facility] [place] En[facility] [id number] 05/28 [facility] [place] [facility] [facility] [place] En[facility] [id number] 05/28 [facility] [place] [facility] [facility] [place] En[facility] [id number] 06/02 [facility] [place] [facility] [facility] [place] En[facility] [id number] 06/17 [facility] [place] [facility] [facility] [place] En[facility] [id number] 06/23 [facility] [place] [place] En[facility] [id number] 07/01 [facility] [place] EYE EXAM&TX ESTAB PT 1/>VST [id number] Diagnos is: ICD-10- CM 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, bilater al, mild stage<b r/> CARROLL,LACE Y J 07/01 [facility] [place] En[facility] [id number] 07/03 [facility] [place] [facility] [place] En[facility] [id number] 07/13 [facility] [place] [facility] [facility] [place] Encounter [id number] 07/13 [facility] [place] [facility] [facility] [place] En[facility] [id number] 07/15 [facility] [place] [facility] [facility] [place] En[facility] [id number] 07/15 [facility] [place] [facility] [place] En[facility] [id number] 07/30 [facility] [place] [facility] [facility] [place] HC PRO PHONE CALL 5-10 MIN [id number] Diagnos is: ICD-10- CM 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
JAVIER ESPAÑA 07/30 [facility] [place] [id number] 08/14 [facility] [place] [place] En[facility] [id number] 08/17 [facility] [place] [facility] [place] En[facility] [id number] 08/26 [facility] [place] [facility] [place] En[facility] [id number] 09/16 [facility] [place] PRO PHONE CALL 5-10 MIN [id number] Diagnos is: ICD-10- CM 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
JAVIER ESPAÑA 09/24 [facility] [place] En[facility] [id number] 09/24 [facility] [place] En[facility] [id number] 09/24 [facility] [place] En[facility] [id number] 10/05 [facility] [place] En[facility] [id number] 10/05 [facility] [place] DEBRIDE NAIL 6 OR MORE [id number] Diagnos is: ICD-10- CM 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
RAPHAEL LIVINGSTON RLEDWARD D 10/05 [facility] [place] En[facility] [id number] 10/07 [facility] [place] En[facility] [id number] JAVIER ESPAÑA 10/21 [facility] [place] En[facility] [id number] 10/29 [facility] [place] En[facility] [id number] 11/04 [facility] [place] En[facility] [id number] 11/25 [facility] [place] En[facility] [id number] 11/25 [facility] [place] Encounter [id number] 11/29 [facility] [place] Encounter [id number] 11/29 [facility] [place] OFFICE O/P EST MOD 30 MIN [id number] Diagnos is: ICD-10- CM E11.621 Type 2 diabete s mellitu s with foot ulcer<b r/> RAPHAEL LIVINGSTON D 12/03 [facility] [place] DIABETIC CUSTOM MOLDED SHOE [id number] Diagnos is: ICD-10- CM 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
SAIMA CASTAÑEDA TT DAVID 12/03 [facility] En[facility] [id number] 12/08 [facility] [place] [place] [facility] QNHP OL DIG ASSMT&MGMT 21+ [id number] Diagnos is: ICD-10- CM E11.9 Type 2 diabete s mellitu s without complic ations< br/> GDRYAN VASQUEZ A 12/08 [facility] [place] En[facility] [id number] 12/13 [facility] [place] En[facility] [id number] 12/15 [facility] [place] [place] [facility] OFFICE O/P EST LOW 20 MIN [id number] Diagnos is: ICD-10- CM I10 Essenti al (primar y) hyperte nsion<b r/> RUTHIE RUBALCAVA 12/24 [facility] [place] En[facility] [id number] 12/29 [facility] [place] En[facility] [id number] 01/03 [facility] [place] En[facility] [id number] 01/12 [facility] [place] En[facility] [id number] 01/19 [facility] [place] En[facility] [id number] 01/24 [facility] [place] En[facility] [id number] 01/26 [facility] [place] En[facility] [id number] 01/26 [facility] [place] En[facility] [id number] 01/31 [facility] [place] En[facility] [id number] 02/02 [facility] [place] [id number] 02/02 [facility] [id number] 02/09 [facility] [id number] 02/09 [facility] [id number] 02/14 [facility] [id number] 02/14 [facility] [id number] 02/14 [facility] [id number] 02/23 [facility] [id number] 02/23 [facility] En[facility] [id number] 02/23 [facility] En[facility] [id number] Diagnos is: ICD-10- CM 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
[place] 02/24 [facility] [id number] 02/24 [facility] [id number] 02/25 [facility] [id number] 02/25 [facility] [id number] 02/25 [facility] [id number] 02/25 [facility] [id number] 02/28 [facility] En[facility] [id number] 03/08 [facility] CASE MANAGEMENT [id number] Diagnos is: ICD-10- CM I50.9 Heart failure , 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
AWLE DAMIAN 03/08 [facility] [id number] 03/09 [facility] [id number] 03/11 [facility] [id number] 03/17 [facility] [id number] 03/22 [facility] [id number] 03/29 [facility] [id number] 04/01 [facility] [id number] 04/07 [facility] Outpatient Encounter [id number] 04/11 [facility] Encounter [id number] 04/12 [facility] Encounter [id number] [facility] Out[facility] Encounter [id number] 04/15 [facility] Out[facility] Encounter [id number] 04/19 [facility] Out[facility] Encounter [id number] 04/21 [facility] Encounter [id number] 04/22 [facility] Out[facility] Encounter [id number] 04/25 [facility] Encounter [id number] Diagnos is: ICD-10- CM 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
[place] 05/09 [facility] Encounter [id number] 05/11 [facility] Encounter [id number] 05/20 [facility] Encounter [id number] [facility] Encounter [id number] 05/24 [facility] OFFICE O/P EST LOW 20 MIN [id number] Diagnos is: ICD-10- CM E11.8 Type 2 diabete s mellitu s with 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 complic ations< br/> RUTHIE RUBALCAVA 05/24 [facility] Out[facility] Encounter [id number] 05/24 [facility] Encounter [id number] 05/24 [facility] Encounter [id number] 05/24 [facility] Encounter [id number] 05/25 [facility] Encounter [id number] [facility] Encounter [id number] 05/25 [facility] Out[facility] Encounter [id number] 05/26 [facility] HC PRO PHONE CALL 21-30 MIN [id number] 1. 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
[place] 05/26 [facility] HC PRO PHONE CALL 21-30 MIN [id number] 1. Diagnos is: ICD-10- CM Z74.1 Need for assista nce with persona l care
[place] 05/27 [facility] HC PRO PHONE CALL 21-30 MIN [id number] Diagnos is: ICD-10- CM Z76.89 [facility] oth circums tances< br/> [place] 05/31 [facility] Out[facility] Encounter [id number] [facility] Out[facility] Encounter [id number] 06/01 [facility]counter [id number] 1.06/02 [facility] Out[facility] Encounter [id number] [facility] Encounter [id number] 1.06/02 [facility] Encounter [id number] 1.06/07 [facility] Encounter [id number] 1.06/21 [facility] Encounter [id number] 1.06/21 [facility] Encounter [id number] 1.06/27 [facility] HC PRO PHONE CALL 11-20 MIN [id number] Diagnos is: ICD-10- CM 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
JAVIER ESPAÑA 06/28 [facility] Encounter [id number] 1.07/04 [facility] Out[facility] Encounter [id number] [facility] Encounter [id number] 1.07/06 [facility] Encounter [id number] 1.07/06 [facility] Encounter [id number] 1.07/06 [facility] Out[facility] Encounter [id number] [facility] Out[facility] Encounter [id number] [facility] Out[facility] Encounter [id number] 07/13 [facility] Encounter [id number] Diagnos is: ICD-10- CM I50.9 Heart failure , 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
Remy POMPA 07/25 [facility] Encounter [id number] 07/26 [facility] Out[facility] Encounter [id number] 07/26 [facility] Out[facility] Encounter [id number] 08/03 [facility] Out[facility] Encounter [id number] 08/03 [facility] Out[facility] Encounter [id number] [facility] Out[facility] Encounter [id number] 08/06 [facility] Out[facility] Encounter [id number] [facility] Out[facility] Encounter [id number] [facility] Out[facility] Encounter [id number] 1.08/11 [facility] Encounter [id number] 1.08/12 [facility] Out[facility] Encounter [id number] 1.08/16 [facility] Encounter [id number] 1.09/13 [facility] HC PRO PHONE CALL 11-20 MIN [id number] Diagnos is: ICD-10- CM 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
JAVIER ESPAÑA 09/14 [facility] Encounter [id number] 1.09/30 [facility]counter [id number] [facility] Out[facility] Encounter [id number] [facility] OFFICE O/P EST LOW 20 MIN [id number] Diagnos is: ICD-10- CM I10 Essenti al (primar y) hyperte nsion<b r/> RUTHIE RUBALCAVA 10/04 [facility] Out[facility] Encounter [id number] [facility] Out[facility] Encounter [id number] [facility] Out[facility] Encounter [id number] 10/12 [facility] Out[facility] Encounter [id number] 10/19 [facility] Out[facility] Encounter [id number] 10/19 [facility] PH1 ASSMT&MGMT NQHP 11-20 [id number] Diagnos is: ICD-10- CM 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
[place] 10/21 [facility] [place] [facility] Social History Combined list of available smoking, tobacco, and other social history from Department of Defense and Veterans Affairs facilities. Social History Type Response Date Comment Sour e Tobacco smoking status NHIS MT-TOBACCO NEVER USED 05/24/2024 [facility] [place] [facility] of [facility]08[facility]2023 [facility] [place] [facility] History of tobacco [facility] 15 YRS OR MORE 04/11/2022 [facility] [place] [facility] of tobacco [facility] [place] [facility] 11/09/2018 [facility] [place] [facility] History of tobacco use QUIT TOBACCO USE > 7 YEARS AGO 01/08/2018 [facility] [place] [facility] History of tobacco use LIFETIME NON-TOBACCO USER 01/15/2017 [facility] [place] [facility] History of tobacco use LIFETIME NON-TOBACCO USER 09/26/2015 . [facility] [place] [facility] History of tobacco use LIFETIME NON-TOBACCO USER 04/03/2011 [facility] [place] [facility] Plan of Care List of future care activities from Department of Veterans Affairs facilities. Additional future care activities may be listed in the Assessment and Plan section. Date/Time Care Activity Care Activity Detail Facili ty 10/31/2024 AMBULATORY - MEDICINE AMBULATORY - MEDICI NE [facility] [place] [facility] 11/01/2024 AMBULATORY - MEDICINE AM[facility]ULAT[facility] 12/01/2024 AMBULATORY - MEDICINE AMBULATORY [facility] 12/16/2024 AMBULATORY - MEDICINE AMBULATORY - [facility]ICI [facility] 10/04/2024 Consult Order PODIATRY/NHM OUT PT Cons 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 [facility] 10/06/2024 Consult Order COMMUNITY CARE-N EPHROLOGY Cons 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 [facility] 11/09/2024 Laboratory - Vacation Planner ry Order HEMOGLOBIN A1C PANEL [facility]LO[facility] ([facility] 11/09/2024 Laboratory - Vacation Planner ry Order BASIC METABOLIC PANEL (fasting) BLOOD (SST-SERUM) [facility] 11/09/2024 Laboratory - Vacation Planner ry Order LIPID PANEL FASTING BLOOD (SST-SERUM) [facility] 11/09/2024 Laboratory - Vacation Planner ry Order LIVER FUNCTION BLOOD ([facility]ST[facility]SERUM) [facility] 11/09/2024 Laboratory - Vacation Planner ry Order MICROALBUMIN CREATININE RATIO PANEL URINE (RANDOM) [facility] Advance Directives List of completed, amended, or rescinded Advance Directives on record at Department of [facility] facilities. An actual copy of the Directive is not included. Date Advance Directive Provider Source 08/21/2021 ADVANCE DIRECTIVE JAVIER CHILDERS [facility]
--- OUTSIDE RECORDS SUMMARY | 2024-10-31 17:03 | XMS_ITS ---
Author Name [facility] [place] [facility] [place] Address [address] [place] [address] Care Team Providers Care Improvement Analyst Name Role Phone FORREST GONSALES Primary Care [...] PART B Dec 27, 2005 PART B [id number] [facility] JOSEFINA BUSTILLOS CHARCharlee PATIENT MEDICARE (WNR) MEDICARE (M) PART A Dec 27, 2005 PART A [id number] [facility] JOSEFINA BUSTILLOS CHARD PATIENT MEDICARE (WNR) MEDICARE (M) PART A Dec 27, 2005 PART A [id number] JOSEFINA BUSTILLOS CHARD PATIENT MEDICARE (WNR) MEDICARE (M) PART B Dec 27, 2005 PART B [id number] JOSEFINA BUSTILLOS PATIENT Selected Encounter This section includes the information on record at [place] for the Encounter. Date/Time Encounter Type Encounter Description Reason Pro vider Source Jun 21, 2024 03:00 PM Outpatient Encounter ADMIN PAT ACTIVTIES (MASNONCT) IHE Encounter Template Text not used by [place] Plan of Treatment: Future Appointments (+ 6 months) and Future Tests (+/- 45 days) The Plan of Treatment section includes future care activities for the patient from all [place] [facility]. This section includes future appointments and future orders which are active, pending or scheduled. Future Appointments This section includes appointments that were scheduled to occur 6 months from the date of the Encounter, up to a maximum of 20 appointments. The data comes from all [facility]. Appointment Date/Time Appointment Type Appointme nt Facility Name Jul 06, 2024 08:00 AM AMBULATORY - NONE [place] [facility] Jul 12, 2024 03:30 PM AMBULATORY - MEDICINE [place] [facility] [place] [facility] Jul 13, 2024 11:45 AM AMBULATORY - MEDICINE [place] [facility] [place] [facility] Jul 26, 2024 08:00 AM [facility] Aug 10, 2024 08:00 AM [facility] Dec 16, 2024 02:30 PM AMBULATORY - MEDICINE [facility] Active, Pending, and Scheduled Orders This section [...] comes from all [facility]. Test Date/Time Test Type Test Details Facility Name May 11, 2024 01:47 PM Consult Order [facility] Cons Sewer Cleaner's Choice [place] [facility] [place] [facility] May 24, 2024 12:00 AM Laboratory - Chemistry Order CBC BLOOD (LAV-BLOOD) [facility] May 24, 2024 12:00 AM Laboratory - Chemistry Order BASIC METABOLIC PANEL (fasting) BLOOD (SST-SERUM) [facility] May 24, 2024 12:00 AM Laboratory - Chemistry Order BNP (Natriuretic Peptide Brain) BLOOD (LAV-PLASMA) [facility] May 24, 2024 12:00 AM Laboratory - Chemistry Order MICROALBUMIN CREATININE RATIO PANEL URINE (RANDOM) [facility] May 24, 2024 12:00 AM Laboratory - Chemistry Order VITAMIN B12 BLOOD (SST-SERUM) [facility] May 24, 2024 12:00 AM Laboratory - Chemistry Order GLYCOHEMOGLOBIN (A1C),[facility] BLOOD (LAV-HgB A1C) [facility] Jul 10, 2024 04:18 PM Consult Order [facility] Cons Sewer Cleaner's Choice [facility] Jul 26, 2024 12:00 AM Laboratory - Chemistry Order CBC BLOOD (LAV-BLOOD) [facility] Jul 26, 2024 12:00 AM Laboratory - Chemistry Order BASIC METABOLIC PANEL (fasting) BLOOD (SST-SERUM) [facility] Jul 26, 2024 12:00 AM Laboratory - Chemistry Order VITAMIN B12 BLOOD (SST-SERUM) [facility] Jul 26, 2024 12:00 AM Laboratory - Chemistry Order BNP (Natriuretic Peptide Brain) BLOOD (LAV-PLASMA) [facility] Jul 26, 2024 12:00 AM Laboratory - Chemistry Order MICROALBUMIN CREATININE RATIO PANEL URINE (RANDOM) [facility] Social History: Smoking Status (Most current) and Tobacco Use (All prior to encounter date) This section includes the most current, and the historical, smoking and tobacco- related health factors from the [place] facility where the Encounter took place. Current Smoking Status This section includes the most current smoking, or tobacco-related health factor, from the [place] facility where the Encounter took place. Date/Time Current Smoking Status Comment Danilo ity May 24, 2024 03:30 PM [place]-TOBACCO NEVER USED [facility] Tobacco Use History This section includes a history of the smoking, or tobacco-related health factors, that were collected on or before the date of the Encounter. The data comes from the [place] facility where the Encounter took place. Date/Time Smoking Status/Tobacco Use Comment F acility May 08, 2023 03:00 PM VA-TOBACCO NEVER USED [place] [facility] [place] [facility] Apr 11, 2022 03:30 PM VA-TOBACCO FORMER USER [place] [facility] [place] [facility] Apr 11, 2022 03:30 PM VA-TOBACCO QUIT 15 YRS OR MORE [place] [facility] [place] [facility] Mar 14, 2020 09:40 AM VA-TOBACCO NEVER USED [place] [facility] [place] [facility] Nov 09, 2018 02:01 PM VA-TOBACCO NEVER USED [place] [facility] [place] [facility] Jan 08, 2018 11:02 AM QUIT TOBACCO USE > 7 YEARS AGO [place] [facility] [place] [facility] Jan 15, 2017 01:29 PM LIFETIME NON-TOBACCO USER [place] [facility] [place] [facility] Sep 26, 2015 09:49 AM LIFETIME NON-TOBACCO USER . [place] [facility] [place] [facility] Apr 03, 2011 10:58 AM LIFETIME NON-TOBACCO [facility]ER [facility] Advance Directives: All historical and current Section Date Range: From patient's date of to the date document was created. This section includes ALL of a patient's completed or amended [place] Advance and Rescinded Directives. The entries below indicate that a directive exists for the patient, but an actual copy is not included with this document. The data comes from all [place] facilities. Date Advance Directives Provider Source Aug 21, 2021 ADVANCE DIRECTIVE JAVIER [facility] Encounter Notes: All associated encounter notes This section contains the clinical notes associated to the Encounter. Date/Time Encounter Note(s) Provider Source Jun 21, 2024 03:00 PM PHARMACY NOTE: LOCAL TITLE: V1 PHARMACY CUSTOMER CARE MEDICATION RENEWAL STANDARD TITLE: PHARMACY NOTE DATE OF NOTE: JUN 21, 2024@15:00 ENTRY DATE: JUN 21, 2024@15:00:22 AUTHOR: CRISTY MEJÍA COSIGNER: URGENCY: STATUS: COMPLETED Date: May Division: [facility] referred by Pharmacy Call Center for medication renewal: Non-controlled/maintenan ce medication Medications requested: [id number] FUROSEMIDE 20MG TAB Defer to primary care provider To be mailed . Please review and renew if appropriate. *This note was generated by [facility] Pharmacy Customer Care. If you have any questions or need assistance, do not contact this author. Please refer all questions to your local, on-site pharmacy departments. /pancho/ CRISTY MEJÍA [facility] [employer] Line Technician, [place]/Pharmacy Customer Care Signed: 06/21/2024 15:00 Receipt Acknowledged By: 06/22/2024 07:56 /pancho/ GOMEZ BROWER RN REGISTERED NURSE 06/21/2024 16:48 /pancho/ Forrest Gonsales PA-C STAFF PHYSICIAN INSURANCE ACCOUNT REPRESENTATIVE CRISTY MEJÍA [facility]
--- OUTSIDE RECORDS SUMMARY | 2024-10-31 17:03 | XMS_ITS | Encounter Summary ---
Author Name [facility] [place] Address [address] [place] [address] Care Team Providers Care Hydraulic Jack Operator Name Role Phone RUTHIE RUBALCAVA Primary Care [...] PART B Dec 27, [id number] [facility] JOSEFINA BUSTILLOS PATIENT MEDICARE (WNR) MEDICARE (M) PART A Dec 27, [id number] [facility] JOSEFINA BUSTILLOSD PATIENT MEDICARE (WNR) MEDICARE (M) PART A Dec 27, 2005 PART A [id number] [phone] JOSEFINA BUSTILLOS PATIENT MEDICARE (WNR) MEDICARE (M) PART B Dec 27, 2005 PART B [id number] [phone] JOSEFINA BUSTILLOS PATIENT Selected Encounter This section includes the information on record at [place] for the Encounter. Date/Time Encounter Type Encounter Description Reason Pro vider Source Oct 07, 2024 03:50 PM Outpatient Encounter TELEPHONE PRIMARY CARE IHE Encounter Template Text not used by [place] Plan of Treatment: Future Appointments (+ 6 months) and Future Tests (+/- 45 days) The Plan of Treatment section includes future care activities for the patient [facility] [place] [facility] This section includes future appointments and future orders which are active, pending or scheduled. Future Appointments This section includes appointments that were scheduled to occur 6 months from the date of the Encounter, up to a maximum of 20 appointments. The data comes from all [facility]. Appointment Date/Time Appointment Type Appointme nt Facility Name Nov 01, 2024 02:00 PM [facility] Dec 01, 2024 02:00 PM [facility] Dec 16, 2024 02:30 PM AMBULATORY - MEDICINE [facility] Active, Pending, and Scheduled Orders This section includes a listing of several types of active, pending, and scheduled orders, including clinic medications orders, diagnostic test orders, procedure orders and consult orders; where the start date of the order is 45 days before the date of the Encounter or 45 days after the date of theEncounter. The data comes from all [facility]. Test Date/Time Test Type Test Details Facility Name Sep 14, 2024 12:00 AM Laboratory - Chemistry Order [facility] Oct 04, 2024 03:38 PM Consult Order PODIATRY/NHM OUTPT Cons Horticulture/Floriculture 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 Oct 06, 2024 10:44 AM Consult Order COMMUNITY CARE-NEPHROLOGY Cons Horticulture/Floriculture 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 Nov 09, 2024 12:00 AM Laboratory - Chemistry Order LIPID PANEL FASTING BLOOD (SST[facility]SERUM) [facility] Nov 09, 2024 12:00 AM Laboratory - Chemistry Order BASIC METABOLIC PANEL (fasting) BLOOD (SST-SERUM) [facility] Nov 09, 2024 12:00 AM Laboratory - Chemistry Order LIVER FUNCTION BLOOD (SST-SERUM) [facility] Nov 09, 2024 12:00 AM Laboratory - Chemistry Order MICROALBUMIN CREATININE RATIO PANEL URINE (RANDOM) SP [facility] Nov 09, 2024 12:00 AM Laboratory - Chemistry Order HEMOGLOBIN A1C PANEL BLOOD (LAV-BLOOD) SP [facility] Lab Results: +/- 30 days of [...] Range Comment Oct 04, 2024 02:52 PM [facility] VITAMIN B12 Specimen Type: SERUM No comment entered. Ordering Provider: KENAN RUBALCAVA F Report Released Date/Time: Sep 14, 2024 03:33 PM Reporting Lab: [address] [address] Performing Lab: [address] [address] VITAMIN B12 597 pg/mL 200-900 Oct 04, 2024 02:52 PM [facility] BNP (Natriuretic Peptide Brain) Specimen Type: PLASMA No comment entered. Ordering Provider: KENAN RUBALCAVA F Report Released Date/Time: Sep 14, 2024 03:33 PM Reporting Lab: [address] [address] Performing Lab: [address] [address] BNP (Natriuretic Peptide Brain) 291 pg/mL H 10-100 Oct 04, 2024 02:52 PM [facility] MICROALBUMIN CREATININE RATIO PANEL Specimen Type: URINE No comment entered. Ordering Provider: KENAN RUBALCAVA F Report Released Date/Time: Sep 14, 2024 03:33 PM Reporting Lab: [address] [address] Performing Lab: [address] [address] MICROALBUMIN/C REATININE RATIO 2418.7 mg/g H 0-29.9 MICROALBUMIN,Q UANTITATIVE 186.0 mg/dL RR UNAVAIL CREATININE URINE 76.90 mg/dL Oct 04, 2024 02:52 PM [facility] BASIC METABOLIC PANEL (fasting) Specimen Type: SERUM No comment entered. Ordering Provider: KENAN RUBALCAVA F Report Released Date/Time: Sep 14, 2024 03:33 PM Reporting Lab: [address] [address] Performing Lab: [address] [address] UREA NITROGEN 25 mg/dL 7-25 GLUCOSE 192 mg/dL H 65-100 SODIUM 138 mmol/L 135-145 POTASSIUM 4.3 mmol/L 3.5-5.0 CHLORIDE 104 mmol/L 100-110 CO2 23 meq/L 20-30 CREATININE, Serum 1.53 mg/dL H 0.50-1.40 eGFR(CKD-EPI 2020) 45 mL/min L >60 Oct 04, 2024 02:52 PM [facility] HEMOGLOBIN A1C PANEL Specimen Type: BLOOD Comment: Values obtained from A1C measurements can vary. For atypical A1C assays, a reported value of 7.0 could actually be between 6.72 and 7.28 if measured by a reference method. A reported value of 9.0 could actually be between 8.73 and 9.27. Ref: http://www.ngs p.org/CAPdata. asp Ordering Provider: KENAN RUBALCAVA F Report Released Date/Time: Sep 14, 2024 03:33 PM Reporting Lab: [address] [address] Performing Lab: [address] [address] HEMOGLOBIN A1C 9.2 H 4.0-5.6 Oct 04, 2024 02:52 PM [facility] CBC Specimen Type: BLOOD No comment entered. Ordering Provider: KENAN RUBALCAVA F Report Released Date/Time: Sep 14, 2024 03:33 PM Reporting Lab: [facility] [address] [facility] [address] Performing Lab: [facility] [address] [facility] [address] WBC 9.81 10*3/uL 4.50-11.00 RBC 5.95 10*6/uL H 4.23-5.66 HGB 15.9 g/dL 12.8-17 HCT 48.7 39.2-50.4 MCV 81.8 fL L 82-99 MCHC 32.6 g/dL 30.8-35.1 PLT 239 10*3/uL 140-360 RDW-CV 14.5 12.0-16.0 MCH 26.7 pg 26.2-32.6 Oct 04, 2024 02:52 PM [facility] LIVER FUNCTION Specimen Type: SERUM No comment entered. Ordering Provider: KENAN RUBALCAVA F Report Released Date/Time: Sep 14, 2024 03:33 PM Reporting Lab: [address] [address] Performing Lab: [address] [address] PROTEIN,TOTAL 8.2 g/dL 6.0-8.3 ALBUMIN 4.2 g/dL 3.5-5.0 ALKALINE PHOSPHATASE 119 U/L 40-150 AST 19 U/L 5-34 ALT 23 U/L BILIRUBIN, TOTAL 0.6 mg/dL 0.2-1.2 Oct 04, 2024 02:52 PM [facility] LIPID PANEL FASTING Specimen Type: SERUM No comment entered. Ordering Provider: KENAN RUBALCAVA F Report Released Date/Time: Sep 14, 2024 03:33 PM Reporting Lab: [address] [address] Performing Lab: [address] [address] CHOLESTEROL 190 mg/dL TRIGLYCERIDE 65 mg/dL 0-150 LDL calculated 115 mg/dL 0-129 CHOL/HDL 3.1 HDL CHOLESTEROL 62 mg/dL H 40-60 Social History: Smoking Status (Most current) and Tobacco Use (All prior to encounter date) This section includes the most current, and the historical, smoking and tobacco- related health factors from the [place] facility where the Encounter took place. Current Smoking Status This section includes the most current smoking, or tobacco-related health factor, from the [place] facility where the Encounter took place. Date/Time Current Smoking Status Comment Danilo ity May 24, 2024 03:30 PM VA-TOBACCO [facility] Tobacco Use History This section includes a history of the smoking, or tobacco-related health factors, that were collected on or before the date of the Encounter. The data comes from the [place] facility where the Encounter took place. Date/Time Smoking Status/Tobacco Use Comment Yelitza miramontes May 08, 2023 03:00 PM VA-TOBACCO NEVER USED [place] [facility] [place] [facility] Apr 11, 2022 03:30 PM VA-TOBACCO [place]ER [place] [facility] Apr 11, 2022 03:30 PM VA-TOBACCO QUIT 15 YRS OR MORE [place] [facility] [facility] Mar 14, 2020 09:40 AM VA-TOBACCO NEVER USED [place] [facility] [place] [facility] Nov 09, 2018 02:01 PM VA-TOBACCO NEVER USED [place] [facility] [place] [facility] Jan 08, 2018 11:02 AM QUIT TOBACCO USE > 7 YEARS AGO [place] [facility] [place] [facility] Jan 15, 2017 01:29 PM LIFETIME NON-TOBACCO USER [place] [facility] [place] [facility] Sep 26, 2015 09:49 AM LIFETIME NON-TOBACCO USER . [place] [facility] [place] [facility] Apr 03, 2011 10:58 AM LIFETIME NON-TOBACCO USER [facility] Advance Directives: All historical and current Section Date Range: From patient's date of to the date document was created. This section includes ALL of a patient's completed or amended [place] Advance and Rescinded Directives. The entries below indicate that a directive exists for the patient, but an actual copy is not included with this document. The data comes from all [place] facilities. Date Advance Directives Provider Source Aug 21, 2021 ADVANCE DIRECTIVE JAVIER CHILDERS [facility] Encounter Notes: All associated encounter notes This section contains the clinical notes associated to the Encounter. Date/Time Encounter Note(s) Provider Source Oct 07, 2024 03:50 PM PHARMACY TELEPHONE ENCOUNTER NOTE: LOCAL TITLE: TELEPHONE NOTE/PHARMACY STANDARD TITLE: PHARMACY TELEPHONE ENCOUNTER NOTE DATE OF NOTE: OCT 07, 2024@15:50 ENTRY DATE: OCT 07, 2024@15:50:11 AUTHOR: RYAN GALVAN EXP COSIGNER: URGENCY: STATUS: COMPLETED TELEPHONE NOTE/PHARMACY Has ADDENDA Spoke with RN Jacqui, she just resumed caring for patient. She states that he did have 7 syringes of insulin drawn up in his fridge ranging from 43-45 units. He reported takinng his insulin regularly. He has not been checking his BG didnt know he was supposed to . Last time he checked his BG on his meter was 07/01/24 - 163 mg/dL. He declines checking BG daily. CPP will check in with nurse next week to determine what next steps are in changing his DM medications /pancho/ RYAN GALVAN, PHARMD,BCPS CLINICAL PHARMACY PRACTITIONER Signed: 10/07/2024 16:03 10/07/2024 ADDENDUM STATUS: UNSIGNED You may not VIEW this UNSIGNED Addendum. RYAN GALVAN [facility]
--- OUTSIDE RECORDS SUMMARY | 2024-10-31 17:03 | XMS_ITS ---
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 Date/Time Encounter Type Encounter Description Reason Pro vider Source Oct 06, 2024 01:00 PM Outpatient Encounter TELEPHONE IHE Encounter Template Text not used by [place] Plan of Treatment: Future Appointments (+ 6 [...] 20 appointments. The data comes from all [facility]. Appointment Date/Time Appointment Type Appointme nt Facility Name Nov 01, 2024 02:00 PM [facility] Dec 01, 2024 02:00 PM [facility] Dec 16, 2024 02:30 PM [facility] Active, Pending, and Scheduled Orders This section includes a listing of several types of active, pending, and scheduled orders, including clinic medications orders, diagnostic test orders, procedure orders and consult orders; where the start date of the order is 45 days before the date of the Encounter or 45 days after the date of theEncounter. The data comes from all [facility]. Test Date/Time Test Type Test Details Facility Name Sep 14, 2024 12:00 AM Laboratory - Chemistry Order VITAMIN B12 [facility]LO[facility] ([facility]ST[facility]SERUM) [facility] Oct 04, 2024 03:38 PM Consult Order PODIATRY/NHM OUTPT Cons Drying Tumbler Operator's Choice [facility] Oct 06, 2024 10:44 AM Consult Order COMMUNITY CARE-NEPHROLOGY Cons Drying Tumbler [facility] Nov 09, 2024 12:00 AM Laboratory - Chemistry Order HEMOGLOBIN A1C PANEL BLOOD (LAV-BLOOD) [facility] Nov 09, 2024 12:00 AM Laboratory - Chemistry Order LIPID PANEL FASTING BLOOD (SST-SERUM) [facility] Nov 09, 2024 12:00 AM Laboratory - Chemistry Order BASIC METABOLIC PANEL (fasting) BLOOD (SST-SERUM) [facility] Nov 09, 2024 12:00 AM Laboratory - Chemistry Order LIVER FUNCTION BLOOD (SST-SERUM) [facility] Nov 09, 2024 12:00 AM Laboratory - Chemistry Order MICROALBUMIN CREATININE RATIO PANEL URINE (RANDOM) SP [facility] Lab Results: +/- 30 days of [...] Range Comment Oct 04, 2024 02:52 PM [facility] BNP (Natriuretic Peptide Brain) Specimen Type: PLASMA No comment entered. Ordering Provider: KENAN RUBALCAVA F Report Released Date/Time: Sep 14, 2024 03:33 PM Reporting Lab: [address] [address] Performing Lab: [address] [address] BNP (Natriuretic Peptide Brain) 291 pg/mL H 10-100 Oct 04, 2024 02:52 PM [facility] VITAMIN B12 Specimen Type: SERUM No comment entered. Ordering Provider: KENAN RUBALCAVA F Report Released Date/Time: Sep 14, 2024 03:33 PM Reporting Lab: [address] [address] Performing Lab: [address] [address] VITAMIN B12 597 pg/mL 200-900 Oct 04, 2024 02:52 PM [facility] MICROALBUMIN CREATININE RATIO PANEL Specimen Type: URINE No comment entered. Ordering Provider: KENAN RUBALCAVA F Report Released Date/Time: Sep 14, 2024 03:33 PM Reporting Lab: [address] [address] Performing Lab: [address] [address] MICROALBUMIN/C REATININE RATIO 2418.7 mg/g H 0-29.9 MICROALBUMIN,Q UANTITATIVE 186.0 mg/dL RR UNAVAIL CREATININE URINE 76.90 mg/dL Oct 04, 2024 02:52 PM [facility] HEMOGLOBIN A1C PANEL Specimen Type: BLOOD [...] Sep 14, 2024 03:33 PM Reporting Lab: [address] [address] Performing Lab: [address] [address] HEMOGLOBIN A1C 9.2 H 4.0-5.6 Oct 04, 2024 02:52 PM [facility] BASIC METABOLIC PANEL (fasting) Specimen Type: SERUM No comment entered. Ordering Provider: KENAN RUBALCAVA F Report Released Date/Time: Sep 14, 2024 03:33 PM Reporting Lab: [address] [address] Performing Lab: [address] [address] UREA NITROGEN 25 mg/dL 7-25 GLUCOSE 192 mg/dL H 65-100 SODIUM 138 mmol/L 135-145 POTASSIUM 4.3 mmol/L 3.5-5.0 CHLORIDE 104 mmol/L 100-110 CO2 23 meq/L 20-30 CREATININE, Serum 1.53 mg/dL H 0.50-1.40 eGFR(CKD-EPI 2020) 45 mL/min L >60 Oct 04, 2024 02:52 PM [facility] CBC Specimen Type: BLOOD No comment entered. Ordering Provider: KENAN RUBALCAVA F Report Released Date/Time: Sep 14, 2024 03:33 PM Reporting Lab: [address] [address] Performing Lab: [facility] [address] [facility] [address] WBC 9.81 10*3/uL 4.50-11.00 RBC 5.95 10*6/uL H 4.23-5.66 HGB 15.9 g/dL 12.8-17 HCT 48.7 39.2-50.4 MCV 81.8 fL L 82-99 MCHC 32.6 g/dL 30.8-35.1 PLT 239 10*3/uL 140-360 RDW-CV 14.5 12.0-16.0 MCH 26.7 pg 26.2-32.6 Oct 04, 2024 02:52 PM [facility] LIPID PANEL FASTING Specimen Type: SERUM No comment entered. Ordering Provider: KENAN RUBALCAVA Report Released Date/Time: Sep 14, 2024 03:33 PM Reporting Lab: [address] [address] Performing Lab: [address] [address] CHOLESTEROL 190 mg/dL TRIGLYCERIDE 65 mg/dL 0-150 LDL calculated 115 mg/dL 0-129 CHOL/HDL 3.1 HDL CHOLESTEROL 62 mg/dL H 40-60 Oct 04, 2024 02:52 PM [facility] LIVER FUNCTION Specimen Type: SERUM No comment entered. Ordering Provider: KENAN RUBALCAVA Report Released Date/Time: Sep 14, 2024 03:33 PM Reporting Lab: [address] [address] Performing Lab: [address] [address] PROTEIN,TOTAL 8.2 g/dL 6.0-8.3 ALBUMIN 4.2 g/dL [...] 24, 2024 03:30 PM [facility]TOBACCO [facility] Tobacco Use History This section includes a history of the smoking, or tobacco-related health factors, that were collected on or before the date of the Encounter. The data comes from the [place] facility where the Encounter took place. Date/Time Smoking Status/Tobacco Use Comment Yelitza acjackeline May 08, 2023 03:00 PM VA-TOBACCO NEVER USED IN [facility] [place] [facility] Apr 11, 2022 03:30 PM VA-TOBACCO FORMER USER IN [facility] [place] [facility] Apr 11, 2022 03:30 PM VA-TOBACCO QUIT 15 YRS OR MORE IN [facility] [place] [place] [facility] Mar 14, 2020 09:40 AM VA-TOBACCO NEVER USED IN [facility] [place] [place] [facility] Nov 09, 2018 02:01 PM VA-TOBACCO NEVER USED IN [facility] [place] [facility] Jan 08, 2018 11:02 AM QUIT TOBACCO USE > 7 YEARS AGO IN [facility] [place] [facility] Jan 15, 2017 01:29 PM LIFETIME NON-TOBACCO USER IN [facility] [place] [facility] Sep 26, 2015 09:49 AM LIFETIME NON-TOBACCO USER . [place] [facility] [place] [place] [facility] Apr 03, 2011 10:58 AM LIFETIME [facility]-TOBACCO [facility]ER [facility] Advance Directives: All historical and current [...] Aug 21, 2021 ADVANCE DIRECTIVE JAVIER CHILDERS [facility]
--- OUTSIDE RECORDS SUMMARY | 2024-10-31 17:03 | XMS_ITS | Encounter Summary ---
Author Name [facility] [facility] [facility] [place] Address [address] [place] [address] Care Team Providers Care Feed Weigher Name Role Phone RUTHIE GONSALES Primary Care [...] PART B Dec 27, 2005 PART B [id number] [facility] JOSEFINA BUSTILLOS PATIENT MEDICARE (WNR) MEDICARE (M) PART A Dec 27, 2005 PART A [id number] [facility] JOSEFINA BUSTILLOS PATIENT MEDICARE (WNR) MEDICARE (M) PART B Dec 27, 2005 PART B [id number] [phone] JOSEFINA BUSTILLOS PATIENT Selected Encounter This section includes the information on record at [place] for the Encounter. Date/Time Encounter Type Encounter Description Reason Provider Source Dec 25, 2023 01:00 PM OFFICE O/P EST LOW 20 MIN PRIMARY CARE/MEDICINE ICD-10-CM I10 Essential (primary) hypertension ABRIL GONSALES Encounter Template Text not used by [place] Assessments - Encounter Diagnoses This section includes the primary and secondary diagnoses documented for the Encounter. Date/Time Primary/Secondary Diagnosis Diagnosis Name Provider Source Dec 25, 2023 02:38 PM PRIMARY Essential (primary) hypertension ABRIL GONSALES [facility] [place] [facility] Dec 25, 2023 02:38 PM SECONDARY Amaurosis fugax ABRIL GONSALES [facility] [place] [facility] Dec 25, 2023 02:38 PM SECONDARY Encounter for immunization GARCIAMEY Marv [facility] [place] [facility] Dec 25, 2023 02:38 PM SECONDARY Heart failure, unspecified ABRIL GONSALES [facility] [place] [facility] Dec 25, 2023 02:38 PM SECONDARY Type 2 diabetes mellitus with diabetic neuropathy, unsp ABRIL GONSALES [facility] [place] [facility] Plan of Treatment: Future Appointments (+ 6 months) and Future Tests (+/- 45 days) The Plan of Treatment section includes future care activities for the [facility] [place] [facility] This section includes future appointments and future orders which are active, pending or scheduled. Future Appointments This section includes appointments that were scheduled to occur 6 months from the date of the Encounter, up to a maximum of 20 appointments. The data comes from all [place] treatment facilities. Appointment Date/Time Appointment Type Appointme nt Facility Name Jan 04, 2024 01:30 PM [place] [facility] [place] [facility] February 01, 2024 02:00 PM [facility] [place] [facility] February 08, 2024 03:30 PM AMBULATORY - MEDICINE [facility] [place] [facility] February 15, 2024 02:30 PM AMBULATORY - MEDICINE [facility] [place] [facility] Mar 15, 2024 08:00 AM AMBULATORY - MEDICINE [facility] [place] [facility] Apr 12, 2024 03:30 PM AMBULATORY - MEDICINE [facility] [place] [facility] May 11, 2024 08:00 AM AM[facility]ULATORY [place] [facility] [place] [facility] May 15, 2024 08:00 AM [facility]ORY [place] [facility] [place] [facility] May 24, 2024 03:30 PM AMBULATORY - MEDICINE [facility] Lab Results: +/- 30 days of the encounter This section includes the Chemistry and Hematology Lab Results on record with [place] for the patient. Radiology Reports and Pathology Reports are provided separately, in subsequent sections. Lab Results This section contains the Chemistry/Hematology Results that were resulted 30 days before or 30 daysafter the date of the Encounter. Date/Time Source Result Type Result - Unit Interpretation Reference Range Comment Dec 04, 2023 01:44 PM [facility] HEMOGLOBIN A1C PANEL Specimen Type: BLOOD Comment: [...] Oct 21, 2023 11:41 AM Reporting Lab: [facility] [address] [address] Performing Lab: [facility] [address] [address] HEMOGLOBIN A1C 9.7 H 4.0-5.6 Dec 04, 2023 01:44 PM [facility] MICROALBUMIN CREATININE RATIO PANEL Specimen Type: URINE No comment entered. Ordering Provider: KENAN GONSALES F Report Released Date/Time: Oct 21, 2023 11:41 AM Reporting Lab: [facility] [address] [address] Performing Lab: [facility] [address] [address] MICROALBUMIN/C REATININE RATIO 321.0 mg/g H 0-29.9 MICROALBUMIN,Q UANTITATIVE 20.2 mg/dL RR UNAVAIL CREATININE URINE 62.93 mg/dL Dec 04, 2023 01:44 PM [facility] LIVER FUNCTION Specimen Type: SERUM Comment: Hemolysis present analysis cannot be performed. Hemolysis present may falsly elevate Potassium Total and Direct Bili, Iron, AST, %Fe. Ordering Provider: KENAN GONSALES F Report Released Date/Time: Oct 21, 2023 11:41 AM Reporting Lab: [address] [address] Performing Lab: [address] [address] PROTEIN,TOTAL 7.2 g/dL 6.0-8.3 ALBUMIN 3.9 g/dL 3.5-5.0 ALKALINE PHOSPHATASE 97 U/L 40-150 AST 19 U/L 5-34 ALT 22 U/L BILIRUBIN, TOTAL comment mg/dL 0.2-1.2 Dec 04, 2023 01:44 PM [facility] BASIC METABOLIC PANEL (fasting) Specimen Type: SERUM Comment: Hemolysis present analysis cannot be performed. Hemolysis present may falsly elevate Potassium Total and Direct Bili, Iron, AST, %Fe. Ordering Provider: KENAN GONSALES F Report Released Date/Time: Oct 21, 2023 11:41 AM Reporting Lab: [address] [phone] Performing Lab: [address] [address] UREA NITROGEN 27 mg/dL H 7-25 GLUCOSE 173 mg/dL H 65-100 SODIUM 138 mmol/L 135-145 POTASSIUM 4.4 mmol/L 3.5-5.0 CHLORIDE 104 mmol/L 100-110 CO2 21 meq/L 20-30 CREATININE, Serum 1.69 mg/dL H 0.50-1.40 eGFR(CKD-EPI 2020) 40 mL/min L >60 Dec 04, 2023 01:44 PM [facility] LIPID PANEL FASTING Specimen Type: SERUM Comment: Hemolysis present analysis cannot be performed. Hemolysis present may falsly elevate Potassium Total and Direct Bili, Iron, AST, %Fe. Ordering Provider: KENAN GONSALES F Report Released Date/Time: Oct 21, 2023 11:41 AM Reporting Lab: [address] [address] Performing Lab: [facility] [place] [facility] [address] [address] CHOLESTEROL 121 mg/dL TRIGLYCERIDE 56 mg/dL 0-150 LDL calculated 58 mg/dL 0-129 CHOL/HDL 2.3 HDL CHOLESTEROL 52 mg/dL 40-60 Vital Signs: All taken on the encounter date This section contains inpatient and outpatient Vital Signs collected on the date of the Encounter. Date/Time Temperature Pulse Blood Pressure Respiratory Rate SP02 Pain Height Weight Body Mass Index Source Dec 25, 2023 02:13 PM 128/68 [facility] [place] [facility] [facility] Dec 25, 2023 01:52 PM 97.4 70 140/70 16 96 0 236 37 [facility] [place] [facility] Immunizations: All administered on the encounter date This section contains immunizations associated to the Encounter. Immunization Series Date Issued Reaction Comments COVID-19 (MODERNA), MRNA, LN P-S, PF, 50 MCG/0.5 ML (AGES 12+ YEARS) 1 Dec 25, 2023 INFLUENZA, HIGH-DOSE, QUADRIVALENT Dec 25, 2023 Social History: Smoking Status (Most current) and Tobacco Use (All prior to encounter date) This section includes the most current, and the historical, smoking and tobacco- related health factors from the [place] facility where the Encounter took place. Current Smoking Status This section includes the most current smoking, or tobacco-related health factor, from the [place] facility where the Encounter took place. Date/Time Current Smoking Status Comment Danilo king May 08, 2023 03:00 PM VA-TOBACCO NEVER USED [place] [facility] Tobacco Use History This section includes a history of the smoking, or tobacco-related health factors, that were collected on or before the date of the Encounter. The data comes from the [place] facility where the Encounter took place. Date/Time Smoking Status/Tobacco Use Comment F acility Apr 11, 2022 03:30 PM VA-TOBACCO FORMER USER [facility] [place] [facility] Apr 11, 2022 03:30 PM VA-TOBACCO QUIT 15 YRS OR MORE [facility] [place] [facility] Mar 14, 2020 09:40 AM VA-TOBACCO NEVER USED [facility] [place] [facility] Nov 09, 2018 02:01 PM VA-TOBACCO NEVER USED [facility] Jan 08, 2018 11:02 AM QUIT TOBACCO USE > 7 YEARS AGO [facility] Jan 15, 2017 01:29 PM LIFETIME NON-TOBACCO USER [facility] Sep 26, 2015 09:49 AM LIFETIME NON-TOBACCO USER . [facility] Apr 03, 2011 10:58 AM LIFETIME NON-TOBACCO USER [facility] Advance Directives: All historical and current Section Date Range: From patient's date of to the date document was created. This section includes ALL of a patient's completed or amended [place] Advance and Rescinded Directives. The entries below indicate that a directive exists for the patient, but an actual copy is not included with this document. The data comes from all [place] facilities. Date Advance Directives Provider Source Aug 21, 2021 ADVANCE DIRECTIVE JAVIER CHILDERS [facility] Encounter Notes: All associated encounter notes This section contains the clinical notes associated to the Encounter. Date/Time Encounter Note(s) Provider Source Dec 25, 2023 02:13 PM PREVENTIVE MEDICINE NURSING NOTE: LOCAL TITLE: CLINICAL REMINDERS/NURSING STANDARD TITLE: PREVENTIVE MEDICINE NURSING NOTE DATE OF NOTE: DEC 25, 2023@14:13 ENTRY DATE: DEC 25, 2023@14:13:37 AUTHOR: REAGAN GARCIA EXP COSIGNER: URGENCY: STATUS: COMPLETED Influenza Immunization: The patient was given the influenza VIS which lists the benefits and side effects of the vaccine and which reviews the risks of not receiving the flu vaccine. The VIS was reviewed with the patient and they were given an opportunity to ask questions. The patient was provided education on how to decrease the risk of influenza infection including social distancing and use of good hand hygiene. The patient denied any prior severe reaction to the flu vaccine or its components. The patient gave verbal consent to receive the vaccine. Influenza, High Dose, Quadrivalent (Fluzone - syringe) Administered: INFLUENZA, HIGH-DOSE, QUADRIVALENT Date Administered: Dec 25, 2023 13:00 Series: Booster Entry Level Sales Representative: [employer] PASTEUR Lot: [id number] Exp Date: Mar 27, 2024 [facility]: [phone] Admin Route/Site: INTRAMUSCULAR/LEFT DELTOID Dosage: 0.7mL Vaccine Information Statement(s): INFLUENZA(FLU) VACC(INACTIVATED OR RECOMBINANT)VIS May 03, 2021 ([place]) Order By: Policy Administered By: Reagan Garcia Homelessness/Food Insecurity Screen: In the past 2 months, have you been living in stable housing that you own, rent, or stay in as part of a household? Yes - Living in stable housing. Are you worried or concerned that in the next 2 months you may NOT have stable housing that you own, rent, or stay in as part of a household? No - Not worried about housing near future [facility] [place] reports the following: Within the past 12 months, you worried whether your food would run out before you got money to buy more. Never true Within the past 12 months, the food you bought just didn't last and you didn't have money to get more. Never true COVID-19 Immunization: Moderna Monovalent (Spikevax) Administered: COVID-19 (MODERNA), MRNA, LNP-S, PF, 50 MCG/0.5 ML (AGES 12 + YEARS) Date Administered: Dec 25, 2023 13:00 Series: Series 1 Entry Level Sales Representative: [employer]. Lot: [id number] Exp Date: Jan 20, 2024 [facility]: [phone] Admin Route/Site: INTRADERMAL/LEFT ARM Dosage: 0.5mL Vaccine Information Statement(s): COVID-19 MRNA VACCINE (12+ YRS) VACCINE VIS Jul 16, 2023 ([place]) Order By: Policy Administered By: Reagan Garcia Vaccine administered without complications. The patient was advised to remain in the facility for 15 minutes post vaccination. /pancho/ REAGAN GARCIA LPN Signed: 12/25/2023 14:16 REAGAN GARCIA [facility] [place] [facility] Dec 25, 2023 02:03 PM PHYSICIAN COLOR RECEIVER NOTE: LOCAL TITLE: SYED NOTE STANDARD TITLE: PHYSICIAN COLOR RECEIVER NOTE DATE OF NOTE: DEC 25, 2023@14:03 ENTRY DATE: DEC 25, 2023@14:03:44 AUTHOR: RUTHIE GONSALES EXP COSIGNER: URGENCY: STATUS: COMPLETED CC/HPI/A/P: 83 year old MALE here in follow-up for; DM, uncontrolled. He and Sig other report complaince, but the [facility] RN tells another story (she couldn't make it today, but called earlier) I tell him that I feel he would be much better off in a SNF. Declines. I tell them tell us when you are ready . Review of systems: Patient reports no changes from [facility], in meds or any admissions. Active problems - Computerized Problem List is the source for the followin. CHF - Congestive Heart Failure ([facility] [id number]) 2. History of mitral valve replacement Dr Middleton at [facility]. [facility]. 3. Amaurosis fugax 4. Diabetic Nephropathies * 5. Neuropathy due to diabetes mellitus (SNOMED CT 545658355) 6. Type 2 diabetes mellitus with multiple complications (SNOMED CT 879000076) 7. Impotence, Organic Orign 8. Diverticulosis, Colonic On [address] Justin at [place]. 9. Prostate Cancer 10. Meniere's Disease 11. Hypertension (SNOMED CT 83484272) 12. Obesity 13. Hearing Loss SERVICE CONNECTED % - 80 [facility] and Non VA meds were reconciled with the patient who left with a corrected copy. See medication page for details. Active and Recently Outpatient Medications (excluding Supplies): Active Outpatient Medications Status 1) ACCU-CHEK [...] ACTIVE NEEDED FOR LOW BLOOD SUGAR 11) INSULIN,GLARGINE-YFGN 100UNIT/ML INJ INJECT 40 UNITS ACTIVE SUBCUTANEOUSLY ONCE DAILY FOR DIABETES 12) LATANOPROST 0.005% OPH SOLN INSTILL 1 DROP INTO THE ACTIVE RIGHT EYE AT BEDTIME FOR WIDE-ANGLE GLAUCOMA 13) LOSARTAN 100MG TAB TAKE ONE TABLET BY MOUTH ONCE ACTIVE DAILY FOR BLOOD PRESSURE/HEART 14) MELATONIN 5MG CAP/TAB TAKE ONE CAPSULE/TABLET BY ACTIVE MOUTH EVERY EVENING 15) METOPROLOL SUCCINATE 50MG SA TAB TAKE ONE TABLET BY ACTIVE MOUTH ONCE DAILY FOR BLOOD PRESSURE/HEART 16) PRAVASTATIN NA 40MG TAB TAKE ONE TABLET BY MOUTH ONCE ACTIVE DAILY FOR CHOLESTEROL 17) SENNOSIDES 8.6MG TAB TAKE ONE TABLET BY MOUTH ONCE ACTIVE DAILY NEEDED CONSTIPATION 18) TAMSULOSIN HCL 0.4MG CAP TAKE ONE CAPSULE BY MOUTH ACTIVE ONCE DAILY 97.4 F [36.3 C] (12/25/2023 13:52) 70 (12/25/2023 13:52) 16 (12/25/2023 13:52) 140/70 (12/25/2023 13:52) 0 (12/25/2023 13:52) 67 in [170.2 cm] (04/17/2016 09:06) 236 lb [107.05 kg] (12/25/2023 13:52) BMI: 37.0 Neuro: Alert and oriented times three, grossly nonfocal, nasolabial folds intact. Thyroid nonpalpable. Cor: Regular rate and rhythm, normal s1 and 2 without Murmur, carotid bruits or pedal edema. Lungs; Clear to auscultation bilaterally. Recent labs reviewed with patient today: /pancho/ Ruthie Gonsales PA-C STAFF PHYSICIAN COLOR RECEIVER Signed: 12/25/2023 14:39 RUTHIE GONSALES [facility]
--- OUTSIDE RECORDS SUMMARY | 2024-10-31 17:03 | XMS_ITS | Encounter Summary ---
Author Name [facility] Organization [facility] Address [address] [place] [address] Care Team Providers Care Petrophysical Engineer Name Role Phone RUTHIE RUBALCAVA Primary Care [...] PART B Dec 27, 2005 PART B [id number] [facility] JOSEFINA BUSTILLOS CHARCharlee PATIENT MEDICARE (WNR) MEDICARE (M) PART A Dec 27, 2005 PART A [id number] [facility] JOSEFINA BUSTILLOS CHARD PATIENT MEDICARE (WNR) MEDICARE (M) PART A Dec 27, 2005 PART A [id number] JOSEFINA BUSTILLOS CHARD PATIENT MEDICARE (WNR) MEDICARE (M) PART B Dec 27, 2005 PART B [id number] [phone] JOSEFIAN BUSTILLOS PATIENT Selected Encounter This section includes the information on record at [place] for the Encounter. Date/Time Encounter Type Encounter Description Reason Pro vider Source Oct 03, 2024 02:04 PM Outpatient Encounter ADMIN PAT ACTIVTIES (MASNONCT) IHE Encounter Template Text not used by [place] Plan of Treatment: Future Appointments (+ 6 months) and Future Tests (+/- 45 days) The Plan of Treatment section includes future care activities for the [facility] This section includes future appointments and future orders which are active, pending or scheduled. Future Appointments This section includes appointments that were scheduled to occur 6 months from the date of the Encounter, up to a maximum of 20 appointments. The data comes from all [facility] facilities. Appointment Date/Time Appointment Type Appointme nt Facility Name Oct 04, 2024 03:00 PM [facility] Nov 01, 2024 02:00 PM AMBULATORY MEDICINE [facility] Dec 01, 2024 02:00 PM [facility]UL[facility] Dec 16, 2024 02:30 PM [facility] Active, Pending, and Scheduled Orders This [...] from all [facility]. Test Date/Time Test Type Test Details Facility Name Sep 14, 2024 12:00 AM Laboratory - Chemistry Order VITAMIN B12 [facility]LO[facility] (SST-SERUM) [facility] Oct 04, 2024 03:38 PM Consult Order PODIATRY/[facility] OUTPT Cons [facility] Oct 06, 2024 10:44 AM Consult Order COMMUNITY CARE-NEPHROLOGY Cons Product Handler's [facility] Nov 09, 2024 12:00 AM Laboratory - Chemistry Order HEMOGLOBIN A1C PANEL BLOOD (LAV-BLOOD) [facility] Nov 09, 2024 12:00 AM Laboratory - Chemistry Order LIPID PANEL FASTING BLOOD (SST-SERUM) [facility] Nov 09, 2024 12:00 AM Laboratory - Chemistry Order LIVER FUNCTION BLOOD (SST-SERUM) [facility] Nov 09, 2024 12:00 AM Laboratory - Chemistry Order BASIC METABOLIC PANEL (fasting) BLOOD (SST-SERUM) [facility] Nov 09, 2024 12:00 AM Laboratory - Chemistry Order MICROALBUMIN CREATININE RATIO PANEL URINE (RANDOM) [facility] Lab Results: +/- 30 days of the encounter This section includes the Chemistry and Hematology Lab Results on record with [place] for the patient. Radiology Reports and Pathology Reports are provided separately, in subsequent sections. Lab Results This section contains the Chemistry/Hematology Results that were resulted 30 days before or 30 daysafter the date of the Encounter. Date/Time Source Result Type Result - Unit Interpretation Reference Range Comment Oct 04, 2024 02:52 PM [facility] VITAMIN B12 Specimen Type: SERUM No comment entered. Ordering Provider: KENAN RUBALCAVA Report Released Date/Time: Sep 14, 2024 03:33 PM Reporting Lab: [address] [address] Performing Lab: [address] [address] VITAMIN B12 597 pg/mL 200-900 Oct 04, 2024 02:52 PM [facility] BNP (Natriuretic Peptide Brain) Specimen Type: PLASMA No comment entered. Ordering Provider: KENAN RUBALCAVA F Report Released Date/Time: Sep 14, 2024 03:33 PM Reporting Lab: [facility] [address] [facility] [address] Performing Lab: [address] [address] BNP (Natriuretic Peptide Brain) 291 pg/mL H 10-100 Oct 04, 2024 02:52 PM [facility] HEMOGLOBIN A1C PANEL Specimen Type: BLOOD [...] Sep 14, 2024 03:33 PM Reporting Lab: [facility] [address] [facility] [address] Performing Lab: [facility] [address] [facility] [address] HEMOGLOBIN A1C 9.2 H 4.0-5.6 Oct 04, 2024 02:52 PM [facility] BASIC METABOLIC PANEL (fasting) Specimen Type: SERUM No comment entered. Ordering Provider: KENAN RUBALCAVAM F Report Released Date/Time: Sep 14, 2024 03:33 PM Reporting Lab: [facility] [address] [facility] [address] Performing Lab: [address] [address] UREA NITROGEN 25 mg/dL 7-25 GLUCOSE 192 mg/dL H 65-100 SODIUM 138 mmol/L 135-145 POTASSIUM 4.3 mmol/L 3.5-5.0 CHLORIDE 104 mmol/L 100-110 CO2 23 meq/L 20-30 CREATININE, Serum 1.53 mg/dL H 0.50-1.40 eGFR(CKD-EPI 2020) 45 mL/min L >60 Oct 04, 2024 02:52 PM [facility] MICROALBUMIN CREATININE RATIO PANEL Specimen Type: URINE No comment entered. Ordering Provider: KENAN RUBALCAVA F Report Released Date/Time: Sep 14, 2024 03:33 PM Reporting Lab: [facility] [address] [facility] [address] Performing Lab: [address] [address] MICROALBUMIN/C REATININE RATIO 2418.7 mg/g H 0-29.9 MICROALBUMIN,Q UANTITATIVE 186.0 mg/dL RR UNAVAIL CREATININE URINE 76.90 mg/dL Oct 04, 2024 02:52 PM [facility] CBC Specimen Type: BLOOD No comment entered. Ordering Provider: KENAN RUBALCAVA F Report Released Date/Time: Sep 14, 2024 03:33 PM Reporting [facility]: [facility] [address] [facility] [address] Performing Lab: [facility] [address] [address] WBC 9.81 10*3/uL 4.50-11.00 RBC 5.95 10*6/uL H 4.23-5.66 HGB 15.9 g/dL 12.8-17 HCT 48.7 39.2-50.4 MCV 81.8 fL L 82-99 MCHC 32.6 g/dL 30.8-35.1 PLT 239 10*3/uL 140-360 RDW-CV 14.5 12.0-16.0 MCH 26.7 pg 26.2-32.6 Oct 04, 2024 02:52 PM [facility] LIPID PANEL FASTING Specimen Type: SERUM No comment entered. Ordering Provider: KENAN RUBALCAVA F Report Released Date/Time: Sep 14, 2024 03:33 PM Reporting Lab: [address] [address] Performing Lab: [address] [address] CHOLESTEROL 190 mg/dL TRIGLYCERIDE 65 mg/dL 0-150 LDL calculated 115 mg/dL 0-129 CHOL/HDL 3.1 HDL CHOLESTEROL 62 mg/dL H 40-60 Oct 04, 2024 02:52 PM [facility] LIVER FUNCTION Specimen Type: SERUM No comment entered. Ordering Provider: KENAN RUBALCAVA F Report Released Date/Time: Sep 14, 2024 03:33 PM Reporting Lab: [address] [address] Performing Lab: [address] [address] PROTEIN,TOTAL 8.2 g/dL 6.0-8.3 ALBUMIN 4.2 g/dL 3.5-5.0 ALKALINE PHOSPHATASE 119 U/L 40-150 AST 19 U/L 5-34 ALT 23 U/L BILIRUBIN, TOTAL 0.6 mg/dL 0.2-1.2 Social History: Smoking Status (Most current) and Tobacco Use (All prior to encounter date) This section includes the most current, and the historical, smoking and tobacco- related health factors from the [place] facility where the Encounter took place. Current Smoking Status This section includes the most current smoking, or tobacco-related health factor, from the [place] facility where the Encounter took place. Date/Time Current Smoking Status Comment Facil ity May 24, 2024 03:30 PM VA-TOBACCO NEVER USED [place] [facility] [place] [facility] Tobacco Use History This section includes a history of the smoking, or tobacco-related health factors, that were collected on or before the date of the Encounter. The data comes from the [place] facility where the Encounter took place. Date/Time Smoking Status/Tobacco Use Comment F acility May 08, 2023 03:00 PM VA-TOBACCO NEVER USED [facility] [place] [facility] Apr 11, 2022 03:30 PM VA-TOBACCO FORMER USER [facility] [place] [facility] Apr 11, 2022 03:30 PM VA-TOBACCO QUIT 15 YRS OR MORE [facility] [place] [facility] Mar 14, 2020 09:40 AM VA-TOBACCO NEVER USED [facility] [place] [facility] Nov 09, 2018 02:01 PM VA-TOBACCO NEVER USED [facility] [place] [facility] Jan 08, 2018 11:02 AM QUIT TOBACCO USE > 7 YEARS AGO [facility] [place] [facility] Jan 15, 2017 01:29 PM LIFETIME NON-TOBACCO USER [facility] [place] [facility] Sep 26, 2015 09:49 AM LIFETIME NON-TOBACCO USER . [facility] [place] [facility] Apr 03, 2011 10:58 AM LIFETIME NON-TOBACCO USER [facility] [place] [facility] Advance Directives: All historical and current Section Date Range: From patient's date of to the date document was created. This section includes ALL of a patient's completed or amended [place] Advance and Rescinded Directives. The entries below indicate that a directive exists for the patient, but an actual copy is not included with this document. The data comes from all [place] facilities. Date Advance Directives Provider Source Aug 21, 2021 ADVANCE DIRECTIVE JAVIER CHILDERS [facility] Encounter Notes: All associated encounter notes This section contains the clinical notes associated to the Encounter. Date/Time Encounter Note(s) Provider Source Oct 03, 2024 02:04 PM ADMINISTRATIVE NOT E: LOCAL TITLE: CCC: SCHEDULING ADMINISTRATION STANDARD TITLE: ADMINISTRATIVE NOTE DATE OF NOTE: OCT 03, 2024@14:04:29 ENTRY DATE: OCT 03, 2024@14:04:29 AUTHOR: PINO RAMON EXP COSIGNER: URGENCY: STATUS: COMPLETED CCC: SCHEDULING ADMINISTRATION Has ADDENDA Patient Demographics Patient Name: KISHAN BUSTILLOS Patient Primary Phone: [phone] Patient Primary [address]: [address] [place] [address] Patient : 1940 Patient Age: 84 Call Back Number: [phone] Caller/Recipient Relation to Patient: Other If Other Describe Relation to Patient: [facility] Caller Name: Jacqiu Administrative Administrative Note Reason: Home Health / Retirement Administrative Note Comments: Jacqui is requesting pts most recent med list be faxed to her at [phone]. Jacqui states she is taking back over pts med management. IMPORTANT: This note was created by [facility] staff. Please do not alert the staff member by adding them as a signer for future communications. Alerts are not monitored by this user. /pancho/ PINO RAMON [employer] Signed: 10/03/2024 14:04 Receipt Acknowledged By: 10/03/2024 15:28 /pancho/ GOMEZ BROWER RN REGISTERED NURSE 10/04/2024 08:29 /pancho/ REAGAN MARTI LPN 10/03/2024 ADDENDUM STATUS: COMPLETED Faxed /seema BROWER RN REGISTERED NURSE Signed: 10/03/2024 15:28 PINO RAMON [facility]
--- OUTSIDE RECORDS SUMMARY | 2024-10-31 17:03 | XMS_ITS ---
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 Date/Time Encounter Type Encounter Description Reason Provider Source Oct 04, 2024 03:00 PM OFFICE O/P EST LOW 20 MIN PRIMARY CARE/MEDICINE ICD-10-CM I10 Essential (primary) hypertension ABRIL GONSALES IHMarv Encounter Template Text not used by [place] Assessments - Encounter Diagnoses This section includes the primary and secondary diagnoses documented for the Encounter. Date/Time Primary/Secondary Diagnosis Diagnosis Name Provider Source Oct 04, 2024 03:42 PM PRIMARY Essential (primary) hypertension MEY GARCIA [facility] Oct 04, 2024 03:42 PM SECONDARY Encounter for immunization MEY GARCIA TILA E [facility] Oct 04, 2024 03:42 PM SECONDARY Heart failure, unspecified MEY GARCIA E [facility] Oct 04, 2024 03:42 PM SECONDARY Type 2 diabetes mellitus with unspecified complications MEY GARCIA E [facility] Plan of Treatment: Future Appointments (+ 6 months) and Future Tests (+/- 45 days) The Plan of Treatment section includes future care activities for the patient from all [place] [facility]. This section includes future appointments and future orders which are active, pending or scheduled. Future Appointments This section includes appointments that were scheduled to occur 6 months from the date of the Encounter, up to a maximum of 20 appointments. The data comes from all [facility]. Appointment Date/Time Appointment Type Appointme nt Facility Name Nov 01, 2024 02:00 PM AMBULATORY - MEDICINE [facility] Dec 01, 2024 02:00 PM AMBULATORY - MEDICINE [facility] Dec 16, 2024 02:30 PM AMBULATORY - MEDICINE [facility] Active, Pending, and Scheduled Orders This section includes a listing of several types of active, pending, and scheduled orders, including clinic medications orders, diagnostic test orders, procedure orders and consult orders; where the start date of the order is 45 days before the date of the Encounter or 45 days after the date of theEncounter. The data comes from all [facility] [address] [facility]. Test Date/Time Test Type Test Details Facility Name Sep 14, 2024 12:00 AM Laboratory - Chemistry Order VITAMIN B12 BLOOD (SST-SERUM) [facility] Oct 04, 2024 03:38 PM Consult Order PODIATRY/NHM OUTPT Cons Recreation Superintendent's Choice [facility] Oct 06, 2024 10:44 AM Consult Order COMMUNITY CARE-NEPHROLOGY Cons Recreation Superintendent[facility] Nov 09, 2024 12:00 AM Laboratory - Chemistry Order HEMOGLOBIN A1C PANEL BLOOD (LAV-BLOOD) [facility] Nov 09, 2024 12:00 AM Laboratory - Chemistry Order LIPID PANEL FASTING BLOOD (SST-SERUM) [facility] Nov 09, 2024 12:00 AM Laboratory - Chemistry Order BASIC METABOLIC PANEL (fasting) BLOOD (SST-SERUM) [facility] Nov 09, 2024 12:00 AM Laboratory - Chemistry Order LIVER FUNCTION BLOOD (SST-SERUM) [facility] Nov 09, 2024 12:00 AM Laboratory - Chemistry Order MICROALBUMIN CREATININE RATIO PANEL URINE (RANDOM) [facility] Lab Results: +/- 30 days of [...] Range Comment Oct 04, 2024 02:52 PM [facility] VITAMIN B12 Specimen Type: SERUM No comment entered. Ordering Provider: KENAN GONSALES F Report Released Date/Time: Sep 14, 2024 03:33 PM Reporting Lab: [address] [address] Performing Lab: [address] [address] VITAMIN B12 597 pg/mL 200-900 Oct 04, 2024 02:52 PM [facility] BNP (Natriuretic Peptide Brain) Specimen Type: PLASMA No comment entered. Ordering Provider: KENAN GONSALES F Report Released Date/Time: Sep 14, 2024 03:33 PM Reporting Lab: [facility] [address] [address] [address] Performing Lab: [address] [address] BNP (Natriuretic Peptide Brain) 291 pg/mL H 10-100 Oct 04, 2024 02:52 PM [facility] MICROALBUMIN CREATININE RATIO PANEL Specimen Type: URINE No comment entered. Ordering Provider: KENAN GONSALES F Report Released Date/Time: Sep 14, 2024 03:33 PM Reporting Lab: [address] [address] Performing Lab: [address] [address] MICROALBUMIN/C REATININE RATIO 2418.7 mg/g H 0-29.9 MICROALBUMIN,Q UANTITATIVE 186.0 mg/dL RR UNAVAIL CREATININE URINE 76.90 mg/dL Oct 04, 2024 02:52 PM [facility] HEMOGLOBIN A1C PANEL Specimen Type: BLOOD [...] Sep 14, 2024 03:33 PM Reporting Lab: [address] [address] Performing Lab: [address] [address] HEMOGLOBIN A1C 9.2 H 4.0-5.6 Oct 04, 2024 02:52 PM [facility] BASIC METABOLIC PANEL (fasting) Specimen Type: SERUM No comment entered. Ordering Provider: KENAN GONSALESM F Report Released Date/Time: Sep 14, 2024 03:33 PM Reporting Lab: [facility] [address] [address] Performing Lab: [address] [address] UREA NITROGEN 25 mg/dL 7-25 GLUCOSE 192 mg/dL H 65-100 SODIUM 138 mmol/L 135-145 POTASSIUM 4.3 mmol/L 3.5-5.0 CHLORIDE 104 mmol/L 100-110 CO2 23 meq/L 20-30 CREATININE, Serum 1.53 mg/dL H 0.50-1.40 eGFR(CKD-EPI 2020) 45 mL/min L >60 Oct 04, 2024 02:52 PM [facility] CBC Specimen Type: BLOOD No comment entered. Ordering Provider: KENAN GONSALES Report Released Date/Time: Sep 14, 2024 03:33 PM Reporting Lab: [address] [address] Performing Lab: [address] [address] WBC 9.81 10*3/uL 4.50-11.00 RBC 5.95 10*6/uL H 4.23-5.66 HGB 15.9 g/dL 12.8-17 HCT 48.7 39.2-50.4 MCV 81.8 fL L 82-99 MCHC 32.6 g/dL 30.8-35.1 PLT 239 10*3/uL 140-360 RDW-CV 14.5 12.0-16.0 MCH 26.7 pg 26.2-32.6 Oct 04, 2024 02:52 PM [facility] LIPID PANEL FASTING Specimen Type: SERUM No comment entered. Ordering Provider: KENAN GONSALES F Report Released Date/Time: Sep 14, 2024 03:33 PM Reporting Lab: [address] [address] Performing Lab: [address] [address] CHOLESTEROL 190 mg/dL TRIGLYCERIDE 65 mg/dL 0-150 LDL calculated 115 mg/dL 0-129 CHOL/HDL 3.1 HDL CHOLESTEROL 62 mg/dL H 40-60 Oct 04, 2024 02:52 PM [facility] LIVER FUNCTION Specimen Type: SERUM No comment entered. Ordering Provider: KENAN GONSALES Report Released Date/Time: Sep 14, 2024 03:33 PM Reporting Lab: [facility] [address] [address] Performing Lab: [facility] [address] [address] PROTEIN,TOTAL 8.2 g/dL 6.0-8.3 ALBUMIN 4.2 g/dL 3.5-5.0 ALKALINE PHOSPHATASE 119 U/L 40-150 AST 19 U/L 5-34 ALT 23 U/L BILIRUBIN, TOTAL 0.6 mg/dL 0.2-1.2 Vital Signs: All taken on the encounter date This section contains inpatient and outpatient Vital Signs collected on the date of the Encounter. Date/Time Temperature Pulse Blood Pressure Respiratory Rate SP02 Pain Height Weight Body Mass Index Source Oct 04, 2024 03:18 PM 98.2 88 186/74 16 95 0 242 38 [facility] Immunizations: All administered on the encounter date This section contains immunizations associated to the Encounter. Immunization Series Date Issued Reaction Comments INFLUENZA, HIGH-DOSE, TRIVALENT, PF Oct 04 RSV, RECOMBINANT, PROTEIN HRARIS BUNIT RSVPREF3, ADJUVANT RECONSTITUTED, 0.5 ML, PF 1 Oct 04, 2024 Social History: Smoking Status (Most current) and Tobacco Use (All prior to encounter date) This section includes the most current, and the historical, smoking and tobacco- related health factors from the [place] facility where the Encounter took place. Current Smoking Status This section includes the most current smoking, or tobacco-related health factor, from the [place] facility where the Encounter took place. Date/Time Current Smoking Status Comment Danilo king May 24, 2024 03:30 PM VA-TOBACCO NEVER USED [facility] Tobacco Use History This section includes a history of the smoking, or tobacco-related health factors, that were collected on or before the date of the Encounter. The data comes from the [place] facility where the Encounter took place. Date/Time Smoking Status/Tobacco Use Comment F acility May 08, 2023 03:00 PM VA-TOBACCO NEVER USED [place] [facility] [place] [facility] Apr 11, 2022 03:30 PM VA-TOBACCO FORMER USER [facility] [place] [facility] Apr 11, 2022 03:30 PM VA-TOBACCO QUIT 15 YRS OR MORE [place] [facility] [place] [facility] Mar 14, 2020 09:40 AM VA-TOBACCO NEVER USED [place] [facility] [place] [facility] Nov 09, 2018 02:01 PM VA-TOBACCO NEVER USED [place] [facility] [place] [facility] Jan 08, 2018 11:02 AM QUIT TOBACCO USE > 7 YEARS AGO [place] [facility] [place] [facility] Jan 15, 2017 01:29 PM LIFETIME NON-TOBACCO USER [place] [facility] [place] [facility] Sep 26, 2015 09:49 AM LIFETIME NON-TOBACCO USER . [place] [facility] [place] [facility] Apr 03, 2011 10:58 AM LIFETIME NON-TOBACCO [facility]ER [facility] Advance Directives: All historical and current Section Date Range: From patient's date of to the date document was created. This section includes ALL of a patient's completed or amended [place] Advance and Rescinded Directives. The entries below indicate that a directive exists for the patient, but an actual copy is not included with this document. The data comes from all [place] facilities. Date Advance Directives Provider Source Aug 21, 2021 ADVANCE DIRECTIVE JAVIER CHIDLERS [place] [facility] Encounter Notes: All associated encounter notes This section contains the clinical notes associated to the Encounter. Date/Time Encounter Note(s) Provider Source Oct 06, 2024 10:41 AM ADDENDUM: LOCAL TITLE: Addendum STANDARD TITLE: ADDENDUM DATE OF NOTE: OCT 06, 2024@10:41:42 ENTRY DATE: OCT 06, 2024@10:41:43 AUTHOR: RUTHIE GONSALES COSIGNER: URGENCY: STATUS: COMPLETED Please inform him that labs find progression in kidney damage from his diabetes. I am consulting him to our Racecar Driver for assistance in managing. 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 I ask pharmacy to refill all meds. Dm, he denies any hypos, confirms taking 40 units daily of Lantus. I will follow labs as they come back. CBC finds no anemia. Review of systems: Patient reports no changes from [place] [place] [facility], in meds or any admissions. Active problems - Computerized Problem List is the source for the followin. Type 2 diabetes mellitus uncontrolled 2. CHF - Congestive Heart Failure ([facility] 67366598) 3. History of mitral valve replacement Dr Middleton at [facility]. [facility]. 4. Amaurosis fugax 5. 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 Impotence, Organic Orign 8. Diverticulosis, Colonic On [address] Justin at [facility]. 9. Prostate Cancer 10. Meniere's Disease 11. Hypertension (SNOMED CT 72062057) 12. Obesity 13. Hearing Loss SERVICE CONNECTED % - 80 VA and Non VA meds were reconciled with the patient who left with a corrected copy. See medication page for details. Active and Recently Outpatient Medications (excluding Supplies): Active Outpatient Medications Status 1) AMLODIPINE BESYLATE 10MG TAB TAKE ONE TABLET BY MOUTH ONCE ACTIVE DAILY FOR BLOOD PRESSURE/HEART, DO NOT TAKE WITH GRAPEFRUIT JUICE Indication: FOR HIGH BLOOD PRESSURE 2) CLOPIDOGREL BISULFATE 75MG TAB TAKE ONE TABLET BY MOUTH ONCE ACTIVE DAILY 3) GLUCOSE 4GM CHEW TAB CHEW TWO TABLETS BY MOUTH NEEDED ACTIVE Indication: FOR LOW BLOOD SUGAR 4) INSULIN,GLARGINE-YFGN 100UNIT/ML INJ INJECT 40 UNITS ACTIVE SUBCUTANEOUSLY ONCE DAILY Indication: FOR DIABETES 5) LOSARTAN 100MG TAB TAKE ONE TABLET BY MOUTH ONCE DAILY FOR ACTIVE BLOOD PRESSURE/HEART 6) SENNOSIDES 8.6MG TAB TAKE ONE TABLET BY MOUTH ONCE DAILY ACTIVE NEEDED Indication: CONSTIPATION Pending Outpatient Medications Status 1) AMLODIPINE BESYLATE 10MG TAB TAKE ONE TABLET BY MOUTH ONCE PENDING DAILY FOR BLOOD PRESSURE/HEART, DO NOT TAKE WITH GRAPEFRUIT JUICE Indication: FOR HIGH BLOOD PRESSURE 2) CLOPIDOGREL BISULFATE 75MG TAB TAKE ONE TABLET BY MOUTH ONCE PENDING DAILY 3) FUROSEMIDE 40MG TAB TAKE ONE TABLET BY MOUTH ONCE DAILY TO PENDING REMOVE FLUID/CONTROL BLOOD PRESSURE Indication: FOR EDEMA WITH DEFECTIVE KIDNEY FUNCTION 4) LOSARTAN 100MG TAB TAKE ONE TABLET BY MOUTH ONCE DAILY FOR PENDING BLOOD PRESSURE/HEART Inactive Outpatient Medications Status 1) TAMSULOSIN HCL 0.4MG CAP TAKE ONE CAPSULE BY MOUTH ONCE DAILY 11 Total Medications 98.2 F [36.8 C] (10/04/2024 15:18) 88 (10/04/2024 15:18) 16 (10/04/2024 15:18) 186/74 (10/04/2024 15:18) 0 (10/04/2024 15:18) 67 in [170.2 cm] (04/17/2016 09:06) 242 lb [109.77 kg] (10/04/2024 15:18) BMI: 38.0 Neuro: Alert and oriented times three, grossly nonfocal, nasolabial folds intact. Recent labs reviewed with patient today:yes RHS Screen: RHS Screen Environmental Check Upon inquiry, the individual reports that the environment is safe to proceed. Informed Consent to Screen and Document The individual consents to proceed with screening. The individual consents to documentation of responses. PRIMARY SCREEN: In the past 12 months, how often did a current or former intimate partner (e.g., boyfriend, girlfriend, , , sexual partner): 1. Scream or curse at you Never 2. Insult or talk down to you Never 3. Threaten you with harm Never 4. Physically hurt you Never 5. Force or pressure you to have sexual contact against your will, or when you were unable to say no Never ?? The HITS tool (items 1-4 above) is [place] copyright protected by Mg Auguste MD, and the user has full rights to use it throughout the [place] system. PRIMARY SCREEN RESULT: The Primary Screen is NEGATIVE. The individual answered never to all forms of IPV above (i.e., answered never to all 5 items) The individual accepts education and/or resources: Other: EDUCATION: Other: /pancho/ Ruthie Gonsales PA-C STAFF PHYSICIAN PRODUCT APPLICATIONS ENGINEER Signed: 10/04/2024 15:42 Receipt Acknowledged By: * AWAITING SIGNATURE * RYAN GALVAN WILLIAM F [place] [facility] [place] [facility] Oct 04, 2024 03:38 PM PHYSICIAN PRODUCT APPLICATIONS ENGINEER NOTE: LOCAL TITLE: PA NOTE STANDARD TITLE: PHYSICIAN PRODUCT APPLICATIONS ENGINEER NOTE DATE OF NOTE: OCT 04, 2024@15:38 ENTRY DATE: OCT 04, 2024@15:38:42 AUTHOR: RUTHIE GONSALES EXP COSIGNER: URGENCY: STATUS: COMPLETED PA NOTE Has ADDENDA CC/HPI/A/P: 84 year old MALE here in follow-up for; Htn, he reports only taking one pill at night, 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 I ask pharmacy to refill all meds. Dm, he denies any hypos, confirms taking 40 units daily of Lantus. I will follow labs as they come back. CBC finds no anemia. Review of systems: Patient reports no changes from [facility], in meds or any admissions. Active problems - Computerized Problem List is the source for the followin. Type 2 diabetes mellitus uncontrolled 2. CHF - Congestive Heart Failure ([facility] [id number]) 3. History of mitral valve replacement Dr Middleton at [facility]. [facility]. 4. Amaurosis fugax 5. 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 Impotence, Organic Orign 8. Diverticulosis, Colonic On [address] Justin at [facility]. 9. Prostate Cancer 10. Meniere's Disease 11. Hypertension (SNOMED CT 24869607) 12. Obesity 13. Hearing Loss SERVICE CONNECTED % - 80 VA and Non VA meds were reconciled with the patient who left with a corrected copy. See medication page for details. Active and Recently Outpatient Medications (excluding Supplies): Active Outpatient Medications Status 1) AMLODIPINE BESYLATE 10MG TAB TAKE ONE TABLET BY MOUTH ONCE ACTIVE DAILY FOR BLOOD PRESSURE/HEART, DO NOT TAKE WITH GRAPEFRUIT JUICE Indication: FOR HIGH BLOOD PRESSURE 2) CLOPIDOGREL BISULFATE 75MG TAB TAKE ONE TABLET BY MOUTH ONCE ACTIVE DAILY 3) GLUCOSE 4GM CHEW TAB CHEW TWO TABLETS BY MOUTH NEEDED ACTIVE Indication: FOR LOW BLOOD SUGAR 4) INSULIN,GLARGINE-YFGN 100UNIT/ML INJ INJECT 40 UNITS ACTIVE SUBCUTANEOUSLY ONCE DAILY Indication: FOR DIABETES 5) LOSARTAN 100MG TAB TAKE ONE TABLET BY MOUTH ONCE DAILY FOR ACTIVE BLOOD PRESSURE/HEART 6) SENNOSIDES 8.6MG TAB TAKE ONE TABLET BY MOUTH ONCE DAILY ACTIVE NEEDED Indication: CONSTIPATION Pending Outpatient Medications Status 1) AMLODIPINE BESYLATE 10MG TAB TAKE ONE TABLET BY MOUTH ONCE PENDING DAILY FOR BLOOD PRESSURE/HEART, DO NOT TAKE WITH GRAPEFRUIT JUICE Indication: FOR HIGH BLOOD PRESSURE 2) CLOPIDOGREL BISULFATE 75MG TAB TAKE ONE TABLET BY MOUTH ONCE PENDING DAILY 3) FUROSEMIDE 40MG TAB TAKE ONE TABLET BY MOUTH ONCE DAILY TO PENDING REMOVE FLUID/CONTROL BLOOD PRESSURE Indication: FOR EDEMA WITH DEFECTIVE KIDNEY FUNCTION 4) LOSARTAN 100MG TAB TAKE ONE TABLET BY MOUTH ONCE DAILY FOR PENDING BLOOD PRESSURE/HEART Inactive Outpatient Medications Status 1) TAMSULOSIN HCL 0.4MG CAP TAKE ONE CAPSULE BY MOUTH ONCE DAILY 11 Total Medications 98.2 F [36.8 C] (10/04/2024 15:18) 88 (10/04/2024 15:18) 16 (10/04/2024 15:18) 186/74 (10/04/2024 15:18) 0 (10/04/2024 15:18) 67 in [170.2 cm] (04/17/2016 09:06) 242 lb [109.77 kg] (10/04/2024 15:18) BMI: 38.0 Neuro: Alert and oriented times three, grossly nonfocal, nasolabial folds intact. Recent labs reviewed with patient today:yes RHS Screen: RHS Screen Environmental Check Upon inquiry, the individual reports that the environment is safe to proceed. Informed Consent to Screen and Document The individual consents to proceed with screening. The individual consents to documentation of responses. PRIMARY SCREEN: In the past 12 months, how often did a current or former intimate partner (e.g., boyfriend, girlfriend, , , sexual partner): 1. Scream or curse at you Never 2. Insult or talk down to you Never 3. Threaten you with harm Never 4. Physically hurt you Never 5. Force or pressure you to have sexual contact against your will, or when you were unable to say no Never ?? The HITS tool (items 1-4 above) is [place] copyright protected by Mg Auguste MD, and the user has full rights to use it throughout the [place] system. PRIMARY SCREEN RESULT: The Primary Screen is NEGATIVE. The individual answered never to all forms of IPV above (i.e., answered never to all 5 items) The individual accepts education and/or resources: Other: EDUCATION: Other: /pancho/ Ruthie Gonsales PA-C STAFF PHYSICIAN PRODUCT APPLICATIONS ENGINEER Signed: 10/04/2024 15:42 Receipt Acknowledged By: 10/11/2024 09:24 /pancho/ RYAN GALVAN PHARMD,[facility] PRACTITIONER 10/06/2024 ADDENDUM STATUS: COMPLETED Please inform him that labs find progression in kidney damage from his diabetes. I am consulting him to our Racecar Driver for assistance in managing. /pancho/ Ruthie Gonsales PA-C STAFF PHYSICIAN PRODUCT APPLICATIONS ENGINEER Signed: 10/06/2024 10:42 Receipt Acknowledged By: 10/10/2024 13:40 /pancho/ GOMEZ BROWER RN REGISTERED NURSE 10/10/2024 ADDENDUM STATUS: COMPLETED Unable to reach , called listed number [phone]. Left message to call back. /seema BROWER RN REGISTERED NURSE Signed: 10/10/2024 13:41 RUTHIE GONSALES [place] [facility] [place] [facility] Oct 04, 2024 03:24 PM PREVENTIVE MEDICINE NURSING NOTE: LOCAL TITLE: CLINICAL REMINDERS/NURSING STANDARD TITLE: PREVENTIVE MEDICINE NURSING NOTE DATE OF NOTE: OCT 04, 2024@15:24 ENTRY DATE: OCT 04, 2024@15:24:26 AUTHOR: REAGAN GARCIAIGNER: URGENCY: STATUS: COMPLETED CLINICAL REMINDERS/NURSING Has ADDENDA PAVE Foot Check: A complete foot check was completed at this encounter. VISUAL INSPECTION: Includes inspection for skin breaks, deformity, erythema, trauma, pallor on elevation, dependent rubor, nail deformities, extensive callus and pitting edema. Visual exam results: Abnormal Observations: Prior amputation of toes/foot, Thickened toenails PEDAL PULSES: Includes palpation of dorsalis and posterior tibial pulses and signs/symptoms of vascular compromise like pain, pallor, parasthesia or paralysis. Absent: SENSORY CHECK: Includes 10 gram Monofilament (Franklin-Mayra) test of sensation. Intact (Greater than or equal to 80% of sites checked) Abnormal (Less than 80% of sites checked): Abnormal (decreased or absent sensation to monofilament): LOW-RISK: LOW RISK INFORMATION PROVIDED: 1. Advised patient not to walk barefoot. 2. Explained the importance of daily foot checks for changes. 3. Stressed the importance of daily foot hygiene, including bathing and complete drying. The patient verbalized understanding and was offered a detailed handout on diabetic foot care. /pancho/ REAGAN GARCIA LPN Signed: 10/04/2024 15:26 10/04/2024 ADDENDUM STATUS: COMPLETED Influenza Immunization: Influenza, High-Dose, Trivalent, Preservative Free (Fluzone-Syringe) Administered: INFLUENZA, HIGH-DOSE, TRIVALENT, PF Date Administered: Oct 04, 2024 15:00 Series: Booster Narrow Fabric Loom Fixer: SANOFI PASTEUR Lot: [id number] Exp Date: Mar 27, 2025 ND: [id number] Admin Route/Site: INTRAMUSCULAR/LEFT DELTOID Dosage: 0.5mL Vaccine Information Statement(s): INFLUENZA(FLU) VACC(INACTIVATED OR RECOMBINANT)VIS May 03, 2021 (ESTONIAN) Order By: Policy Administered By: Reagan Garcia The Influenza Vaccine Information Statement (VIS) was reviewed with the patient/caregiver which lists the benefits and risks of the vaccine and the risks of not receiving the Influenza vaccine. The patient/caregiver denied any prior severe reaction to this vaccine or its components or a severe allergic reaction, such as anaphylaxis, to any vaccine or any injectable therapy. The patient/caregiver gave verbal consent to receive the vaccine. RSV Immunization: Respiratory Syncytial Virus (RSV) Vaccine: RSV vaccine administered today. Administered: RSV, RECOMBINANT, PROTEIN SUBUNIT RSVPREF3, ADJUVANT RECONSTITUTED, 0.5 ML, PF Date Administered: Oct 04, 2024 15:00 Series: Series 1 Narrow Fabric Loom Fixer: ViSSee Lot: [id number] Exp Date: Jul 22, 2025 NDC: [id number] Admin Route/Site: INTRAMUSCULAR/LEFT DELTOID Dosage: 0.5mL Vaccine Information Statement(s): RSV (RESPIRATORY SYNCYTIAL VIRUS) VACCINE VIS Jul 14, 2024 (ESTONIAN) Order By: Policy Administered By: Reagan Garcia Vaccine Information Sheet (VIS) was given to the patient/caregiver, education regarding adverse reactions was discussed, as well as barriers to learning, if any, were acknowledged. /pancho/ REAGAN GARCIA LPN Signed: 10/04/2024 15:45 REAGAN GARCIA [place] [facility]
--- OUTSIDE RECORDS SUMMARY | 2024-10-31 17:03 | XMS_ITS ---
Author Name Department of [place] [place] Organization [facility] [place] Address [address] [place] [address] Care Team Providers Care Beater Room Supervisor Name Role Phone RUTHIE RUBALCAVA Primary Care [...] PART B Dec 27, 2005 PART B [id number] [facility] JOSEFINA BUSTILLOS PATIENT MEDICARE (WNR) MEDICARE (M) PART A Dec 27, 2005 PART A [id number] [facility] JOSEFINA BUSTILLOS CHARD PATIENT MEDICARE (WNR) MEDICARE (M) PART A Dec 27, 2005 PART A [id number] [phone] JOSEFINA BUSTILLOS CHARD PATIENT MEDICARE (WNR) MEDICARE (M) PART B Dec 27, 2005 PART B [id number] JOSEFINA BUSTILLOS PATIENT Selected Encounter This section includes the information on record at [place] for the Encounter. Date/Time Encounter Type Encounter Description Reason Pro vider Source Apr 19, 2024 02:57 PM Outpatient Encounter ADMIN PAT ACTIVTIES (MASNONCT) IHE Encounter Template Text not used by [place] Plan of Treatment: Future Appointments (+ 6 months) and Future Tests (+/- 45 days) The Plan of Treatment section includes future care activities for the patient from all [place] [facility]. This section includes future appointments and future orders which are active, pending or scheduled. Future Appointments This section includes appointments that were scheduled to occur 6 months from the date of the Encounter, up to a maximum of 20 appointments. The data comes from all [facility]. Appointment Date/Time Appointment Type Appointme nt Facility Name May 11, 2024 08:00 AM AMBULATORY - MEDICINE [place] [facility] [place] [facility] May 15, 2024 08:00 AM AMBULATORY - MEDICINE [place] [facility] [place] [facility] May 24, 2024 03:30 PM AMBULATORY - MEDICINE CO [facility] [place] [facility] Jul 06, 2024 08:00 AM AMBULATORY - NONE [facility] [place] [facility] Jul 12, 2024 03:30 PM AMBULATORY - MEDICINE CO C [facility] [place] [facility] Jul 13, 2024 11:45 AM AMBULATORY - MEDICINE CO C [facility] [place] [facility] Jul 26, 2024 08:00 AM AMBULATORY - NONE [place] [facility] [place] [facility] Aug 10, 2024 08:00 AM AMBULATORY - NONE [place] [facility] [place] [facility] Active, Pending, and Scheduled Orders This section includes a listing of several types of active, pending, and scheduled orders, including clinic medications orders, diagnostic test orders, procedure orders and consult orders; where the start date of the order is 45 days before the date of the Encounter or 45 days after the date of theEncounter. The data comes from all [facility]. Test Date/Time Test Type Test Details Facility Name May 11, 2024 01:47 PM Consult Order [facility] Cons Detail Technician's Choice [facility] [place] [facility] May 24, 2024 12:00 AM Laboratory - Chemistry Order BASIC METABOLIC PANEL (fasting) BLOOD (SST-SERUM) [facility] [facility] May 24, 2024 12:00 AM Laboratory - Chemistry Order CBC BLOOD (LAV-BLOOD) [facility] [facility] May 24, 2024 12:00 AM Laboratory - Chemistry Order VITAMIN B12 BLOOD (SST-SERUM) [facility] May 24, 2024 12:00 AM Laboratory - Chemistry Order BNP (Natriuretic Peptide Brain) BLOOD (LAV-PLASMA) SP [facility] [place] [facility] May 24, 2024 12:00 AM Laboratory - Chemistry Order MICROALBUMIN CREATININE RATIO PANEL URINE (RANDOM) [facility] May 24, 2024 12:00 AM Laboratory - Chemistry Order GLYCOHEMOGLOBIN (A1C),SENDOUT [facility] BLOOD (LAV-HgB A1C) [facility] Social History: Smoking Status (Most current) and Tobacco Use (All prior to encounter date) This section includes the most current, and the historical, smoking and tobacco- related health factors from the [place] facility where the Encounter took place. Current Smoking Status This section includes the most current smoking, or tobacco-related health factor, from the [place] facility where the Encounter took place. Date/Time Current Smoking Status Comment Danilo ity May 08, 2023 03:00 PM [facility] Tobacco Use History This section includes a history of the smoking, or tobacco-related health factors, that were collected on or before the date of the Encounter. The data comes from the [place] facility where the Encounter took place. Date/Time Smoking Status/Tobacco Use Comment F acility Apr 11, 2022 03:30 PM VA-TOBACCO FORMER USER [facility] Apr 11, 2022 03:30 PM VA-TOBACCO QUIT 15 YRS OR MORE [facility] [place] [facility] Mar 14, 2020 09:40 AM VA-TOBACCO NEVER USED [place] [facility] [facility] Nov 09, 2018 02:01 PM VA-TOBACCO NEVER USED CO [facility] [place] [facility] Jan 08, 2018 11:02 AM QUIT TOBACCO USE > 7 YEARS AGO [facility] [place] [facility] Jan 15, 2017 01:29 PM LIFETIME NON-TOBACCO USER [facility] [place] [facility] Sep 26, 2015 09:49 AM LIFETIME NON-TOBACCO USER . [facility] Apr 03, 2011 10:58 AM LIFETIME NON-TOBACCO USER [facility] Advance Directives: All historical and current Section Date Range: From patient's date of to the date document was created. This section includes ALL of a patient's completed or amended [place] Advance and Rescinded Directives. The entries below indicate that a directive exists for the patient, but an actual copy is not included with this document. The data comes from all [place] facilities. Date Advance Directives Provider Source Aug 21, 2021 ADVANCE DIRECTIVE JAVIER CHILDERS [facility] Encounter Notes: All associated encounter notes This section contains the clinical notes associated to the Encounter. Date/Time Encounter Note(s) Provider Source Apr 19, 2024 06:42 PM ADDENDUM: LOCAL TITLE: Addendum STANDARD TITLE: ADDENDUM DATE OF NOTE: APR 19, 2024@18:42:59 ENTRY DATE: APR 19, 2024@18:43 AUTHOR: EVER ASKEWIGNER: URGENCY: STATUS: COMPLETED Will renew for 30 days. Please contact vet and request that he complete labs prior to PCP appt on 04/26/24. /pancho/ EVER ASKEW NP NURSE PRACTITIONER Signed: 04/19/2024 18:43 Receipt Acknowledged By: 04/29/2024 12:12 /seema HICKS EDILMA ========= --- Original Document --- 04/19/24 V1 PHARMACY CUSTOMER CARE MEDICATION RENEWAL: Date: Mar Division: [place] [facility] referred by Pharmacy Call Center for medication renewal: Non-controlled/maintena nce medication Medications requested: [id number] FUROSEMIDE 20MG TAB To be mailed . Please review and renew if appropriate. *This note was generated by [facility] [facility] Customer Care. If you have any questions or need assistance, do not contact this author. Please refer all questions to your local, on-site pharmacy departments. /seema MOFFETT CPhT Hand Former, [place]/Pharmacy Customer Care Signed: 04/19/2024 14:57 Receipt Acknowledged By: 04/19/2024 18:42 /seema ASKEW NP NURSE PRACTITIONER EVER ASKEW [facility] Apr 19, 2024 02:57 PM PHARMACY NOTE: LOCAL TITLE: V1 PHARMACY CUSTOMER CARE MEDICATION RENEWAL STANDARD TITLE: PHARMACY NOTE DATE OF NOTE: APR 19, 2024@14:57 ENTRY DATE: APR 19, 2024@14:57:29 AUTHOR: MAHI MOFFETT EXP COSIGNER: URGENCY: STATUS: COMPLETED V1 PHARMACY CUSTOMER CARE MEDICATION RENEWAL Has ADDENDA Date: Mar Division: [facility] referred by Pharmacy Call Center for medication renewal: Non-controlled/maintena nce medication Medications requested: [id number] FUROSEMIDE 20MG TAB To be mailed . Please review and renew if appropriate. *This note was generated by [facility] [facility] Customer [facility]. If you have any questions or need assistance, do not contact this author. Please refer all questions to your local, on-site pharmacy departments. /seema MOFFETT CPhT Hand Former, [place]/Pharmacy Customer Care Signed: 04/19/2024 14:57 Receipt Acknowledged By: 04/19/2024 18:42 /seema ASKEW NP NURSE PRACTITIONER 04/19/2024 ADDENDUM STATUS: COMPLETED Will renew for 30 days. Please contact vet and request that he complete labs prior to PCP appt on 04/26/24. /seema ASKEW NP NURSE PRACTITIONER Signed: 04/19/2024 18:43 Receipt Acknowledged By: * AWAITING SIGNATURE * MARK HICKS MELISSA K [facility]
--- OUTSIDE RECORDS SUMMARY | 2024-10-31 17:03 | XMS_ITS | Encounter Summary ---
Author Name Department [place] Organization [facility] [place] Address [address] [place] [id number] Care Team Providers Care Professor Of Business Administration Name Role Phone RUTHIE GONSALES Primary Care [...] PART B Dec 27, 2005 PART B [id number] [facility] AP[facility]SEFINA SHANE PATIENT MEDICARE (WNR) MEDICARE (M) PART A Dec 27, 2005 PART A [id number] [facility] APOLLOJOSEFINA SHANE PATIENT MEDICARE (WNR) MEDICARE (M) PART B Dec 27, 2005 PART B [id number] [facility] [phone] JOSEFINA BUSTILLOS PATIENT Selected Encounter This section includes the information on record at [place] for the Encounter. Date/Time Encounter Type Encounter Description Reason Pro vider Source Oct 12, 2024 03:41 PM Outpatient Encounter TELEPHONE PRIMARY CARE IHE [...] 20 appointments. The data comes from all [facility]. Appointment Date/Time Appointment Type Appointme nt Facility Name Nov 01, 2024 02:00 PM AMBULATORY - MEDICINE [facility] Dec 01, 2024 02:00 PM [facility] Dec 16, 2024 02:30 PM AMBULATORY - MEDICINE [facility] Active, Pending, and Scheduled Orders This section includes a listing of several types of active, pending, and scheduled orders, including clinic medications orders, diagnostic test orders, procedure orders and consult orders; where the start date of the order is 45 days before the date of the Encounter or 45 days after the date of theEncounter. The data comes from all [facility]. Test Date/Time Test Type Test Details Facility Name Sep 14, 2024 12:00 AM Laboratory - Chemistry Order VITAMIN B12 BLOOD (SST-SERUM) [facility] Oct 04, 2024 03:38 PM Consult Order PODIATRY/[facility] OUTPT Cons Center Human Resources Manager's Choice [facility] Oct 06, 2024 10:44 AM Consult Order COMMUNITY CARE-NEPHROLOGY Cons Center Human Resources Manager's Choice [facility] Nov 09, 2024 12:00 AM Laboratory - Chemistry Order HEMOGLOBIN A1C PANEL BLOOD (LAV-BLOOD) [facility] Nov 09, 2024 12:00 AM Laboratory - Chemistry Order LIPID PANEL FASTING BLOOD (SST-SERUM) [facility] Nov 09, 2024 12:00 AM Laboratory - Chemistry Order BASIC METABOLIC PANEL (fasting) BLOOD (SST-SERUM) [facility] Nov 09, 2024 12:00 AM Laboratory - Chemistry Order LIVER FUNCTION BLOOD (SST-SERUM) [facility] Nov 09, 2024 12:00 AM Laboratory - Chemistry Order MICROALBUMIN CREATININE RATIO PANEL URINE (RANDOM) SP [facility] Lab Results: +/- 30 days of [...] Range Comment Oct 04, 2024 02:52 PM [facility] VITAMIN B12 Specimen Type: SERUM No comment entered. Ordering Provider: KENAN GONSALES F Report Released Date/Time: Sep 14, 2024 03:33 PM Reporting Lab: [address] [address] Performing Lab: [address] [address] VITAMIN B12 597 pg/mL 200-900 Oct 04, 2024 02:52 PM [facility] BNP (Natriuretic Peptide Brain) Specimen Type: PLASMA No comment entered. Ordering Provider: KENAN GONSALES F Report Released Date/Time: Sep 14, 2024 03:33 PM Reporting Lab: [address] [address] Performing Lab: [address] [address] BNP (Natriuretic Peptide Brain) 291 pg/mL H 10-100 Oct 04, 2024 02:52 PM [facility] MICROALBUMIN CREATININE RATIO PANEL Specimen Type: URINE No comment entered. Ordering Provider: KENAN GONSALES F Report Released Date/Time: Sep 14, 2024 03:33 PM Reporting Lab: [address] [address] Performing Lab: [address] [address] MICROALBUMIN/C REATININE RATIO 2418.7 mg/g H 0-29.9 MICROALBUMIN,Q UANTITATIVE 186.0 mg/dL RR UNAVAIL CREATININE URINE 76.90 mg/dL Oct 04, 2024 02:52 PM [facility] HEMOGLOBIN A1C PANEL Specimen Type: BLOOD [...] Sep 14, 2024 03:33 PM Reporting Lab: [address] [address] Performing Lab: [address] [address] HEMOGLOBIN A1C 9.2 H 4.0-5.6 Oct 04, 2024 02:52 PM [facility] BASIC METABOLIC PANEL (fasting) Specimen Type: SERUM No comment entered. Ordering Provider: KENAN GONSALES F Report Released Date/Time: Sep 14, 2024 03:33 PM Reporting Lab: [address] [address] Performing Lab: [address] [address] UREA NITROGEN 25 mg/dL 7-25 GLUCOSE 192 mg/dL H 65-100 SODIUM 138 mmol/L 135-145 POTASSIUM 4.3 mmol/L 3.5-5.0 CHLORIDE 104 mmol/L 100-110 CO2 23 meq/L 20-30 CREATININE, Serum 1.53 mg/dL H 0.50-1.40 eGFR(CKD-EPI 2020) 45 mL/min L >60 Oct 04, 2024 02:52 PM [facility] CBC Specimen Type: BLOOD No comment entered. Ordering Provider: KENAN GONSALES F Report Released Date/Time: Sep 14, 2024 03:33 PM Reporting Lab: [address] [address] Performing Lab: [facility] [address] [facility] [address] WBC 9.81 10*3/uL 4.50-11.00 RBC 5.95 10*6/uL H 4.23-5.66 HGB 15.9 g/dL 12.8-17 HCT 48.7 39.2-50.4 MCV 81.8 fL L 82-99 MCHC 32.6 g/dL 30.8-35.1 PLT 239 10*3/uL 140-360 RDW-CV 14.5 12.0-16.0 MCH 26.7 pg 26.2-32.6 Oct 04, 2024 02:52 PM [facility] LIPID PANEL FASTING Specimen Type: SERUM No comment entered. Ordering Provider: KENAN GONSALES F Report Released Date/Time: Sep 14, 2024 03:33 PM Reporting Lab: [address] [address] Performing Lab: [address] [address] CHOLESTEROL 190 mg/dL TRIGLYCERIDE 65 mg/dL 0-150 LDL calculated 115 mg/dL 0-129 CHOL/HDL 3.1 HDL CHOLESTEROL 62 mg/dL H 40-60 Oct 04, 2024 02:52 PM [facility] LIVER FUNCTION Specimen Type: SERUM No comment entered. Ordering Provider: KENAN GONSALES F Report Released Date/Time: Sep 14, 2024 03:33 PM Reporting Lab: [address] [address] Performing Lab: [address] [address] PROTEIN,TOTAL 8.2 g/dL 6.0-8.3 ALBUMIN 4.2 g/dL 3.5-5.0 ALKALINE PHOSPHATASE 119 U/L 40-150 AST 19 U/L 5-34 ALT 23 U/L BILIRUBIN, TOTAL 0.6 mg/dL 0.2-1.2 Social History: Smoking Status (Most current) and Tobacco Use (All prior to encounter date) This section includes the most current, and the historical, smoking and tobacco- related health factors from the [place] facility where the Encounter took place. Current Smoking Status This section includes the most current smoking, or tobacco-related health factor, from the [place] facility where the Encounter took place. Date/Time Current Smoking Status Comment Danilo ity May 24, 2024 03:30 PM [facility]ACCO [facility] Tobacco Use History This section includes a history of the smoking, or tobacco-related health factors, that were collected on or before the date of the Encounter. The data comes from the [place] facility where the Encounter took place. Date/Time Smoking Status/Tobacco Use Comment Yelitza acjackeline May 08, 2023 03:00 PM [facility] Apr 11, 2022 03:30 PM VA-TOBACCO FORMER USER [place] [facility] [facility] Apr 11, 2022 03:30 PM VA-TOBACCO QUIT 15 YRS OR MORE [facility] Mar 14, 2020 09:40 AM [facility]-TOBACCO [facility] Nov 09, 2018 02:01 PM VA-TOBACCO NEVER USED [place] [facility]TR [place] [facility] Jan 08, 2018 11:02 AM QUIT TOBACCO USE > 7 YEARS AGO [place] [facility] Jan 15, 2017 01:29 PM LIFETIME NON-TOBACCO USER [place] [facility] [facility] Sep 26, 2015 09:49 AM LIFETIME NON-TOBACCO USER . [place] CNT [facility] Apr 03, 2011 10:58 AM LIFETIME NON-TOBACCO [facility]ER [facility] Advance Directives: All historical and current Section Date Range: From patient's date of to the date document was created. This section includes ALL of a patient's completed or amended [place] Advance and Rescinded Directives. The entries below indicate that a directive exists for the patient, but an actual copy is not included with this document. The data comes from all [place] facilities. Date Advance Directives Provider Source Aug 21, 2021 ADVANCE DIRECTIVE JAVIER CHILDERS [facility] Encounter Notes: All associated encounter notes This section contains the clinical notes associated to the Encounter. Date/Time Encounter Note(s) Provider Source Oct 12, 2024 03:41 PM PHARMACY TELEPHONE ENCOUNTER NOTE: LOCAL TITLE: TELEPHONE NOTE/PHARMACY STANDARD TITLE: PHARMACY TELEPHONE ENCOUNTER NOTE DATE OF NOTE: OCT 12, 2024@15:41 ENTRY DATE: OCT 12, 2024@15:41:05 AUTHOR: RYAN GALVAN COSIGNER: URGENCY: STATUS: COMPLETED Spoke with RITCHIE Osman nurse. She saw pt today. She reports pt did not check BG at all during the past week. He also missed 3 days of his oral medications. He told nurse that he is only going to live until he dies . He will only take medication if he feels like it and is not going to check his BG. He eventually allowed nurse to check BG which was 193 mg/dL - sometime after breakfast - unsure of timing of food and quanity of food. Jacqui reminded pt Elder services were going to be visiting next week and pt declines them coming into his home. He did help Jacqui draw up insulin for the week, seeming willing to take insulin daily. Will increase insulin glargine to 42 units once daily, reviewed with nurse to update dose next week and f/u in a few weeks with hopes of obtaining some BG readings. Would consider adding glipizide, but given pt does not consistently take medication, nor willingness to adher to directions ( i.e. taking 30 mins before meals) would defer at this time for safety. /pancho/ RYAN GALVAN PHARMD,BCPS CLINICAL PHARMACY PRACTITIONER Signed: 10/12/2024 15:55 Receipt Acknowledged By: 10/13/2024 08:23 /pancho/ REAGAN MARTI LPN 10/12/2024 17:55 /pancho/ Ruthie Gonsales PA-C STAFF PHYSICIAN BELT CHANGER RYAN GALVAN [facility]
--- OUTSIDE RECORDS SUMMARY | 2024-10-31 17:03 | XMS_ITS | Encounter Summary ---
Author Name Department of [facility]a Affairs ([place]) Organization [facility] Address [address] [place] [address] Care Team Providers Care Spring Assembler Name Role Phone RUTHIE RUBALCAVA Primary Care [...] PART B Dec 27, 2005 PART B [id number] [facility] JOSEFINA BUSTILLOS PATIENT MEDICARE (WNR) MEDICARE (M) PART A Dec 27, 2005 PART A [id number] [facility] JOSEFINA BUSTILLOS PATIENT MEDICARE (WNR) MEDICARE (M) PART B Dec 27, 2005 PART B [id number] [facility] [phone] JOSEFINA BUSTILLOS PATIENT Selected Encounter This section includes the information on record at [place] for the Encounter. Date/Time Encounter Type Encounter Description Reason Pro vider Source IHE Encounter Template Text not used by [place] Advance Directives: All historical and current Section Date Range: From patient's date of to the date document was created. This section includes ALL of a patient's completed or amended [place] Advance and Rescinded Directives. The entries below indicate that a directive exists for the patient, but an actual copy is not included with this document. The data comes from all [place] facilities. Date Advance Directives Provider Source Aug 21, 2021 ADVANCE DIRECTIVE JAVIER CHILDERS [facility]
--- OUTSIDE RECORDS SUMMARY | 2024-10-31 17:03 | XMS_ITS ---
Author Name [facility] [place] [facility] [place] Address [address] [place] [id number] Care Team Providers Care Entry Level Management Name Role Phone RUTHIE RUBALCAVA Primary Care [...] PART B Dec 27, 2005 PART B [id number] [facility] JOSEFINA BUSTILLOS PATIENT MEDICARE (WNR) MEDICARE (M) PART A Dec 27, 2005 PART A [id number] [facility] JOSEFINA BUSTILLOS JAZMINECharlee PATIENT MEDICARE (WNR) MEDICARE (M) PART B Dec 27, 2005 PART B [id number] [facility] JOSEFINA BUSTILLOS PATIENT Selected Encounter This section includes the information on record at [place] for the Encounter. Date/Time Encounter Type Encounter Description Reason Provider Source Oct 20, 2024 02:34 PM PH1 ASSMT&MGMT NQHP 11-20 TELEPHONE CASE MANAGEMENT ICD-10-CM Z71.9 Counseling, unspecified ISAIAS ESPAÑA IHMarv Encounter Template Text not used by [place] Assessments - Encounter Diagnoses This section includes the primary and secondary diagnoses documented for the Encounter. Date/Time Primary/Secondary Diagnosis Diagnosis Name Provider Source Oct 20, 2024 02:34 PM PRIMARY Counseling, unspecified ISAIAS ESPAÑA [facility] Plan of Treatment: Future Appointments (+ 6 months) and Future Tests (+/- 45 days) The Plan of Treatment section includes future care activities for the patient from all [place] [facility]. This section includes future appointments and future orders which are active, pending or scheduled. Future Appointments This section includes appointments that were scheduled to occur 6 months from the date of the Encounter, up to a maximum of 20 appointments. The data comes from all [place] treatment facilities. Appointment Date/Time Appointment Type Appointme nt Facility Name Nov 01, 2024 02:00 PM AMBULATORY - MEDICINE [facility] Dec 01, 2024 02:00 PM AMBULATORY - MEDICINE [facility] Dec 16, 2024 02:30 PM AMBULATORY MEDICINE [facility] Active, Pending, and Scheduled Orders This section includes a listing of several types of active, pending, and scheduled orders, including clinic medications orders, diagnostic test orders, procedure orders and consult orders; where the start date of the order is 45 days before the date of the Encounter or 45 days after the date of theEncounter. The data comes from all [facility]. Test Date/Time Test Type Test Details Facility Name Sep 14, 2024 12:00 AM Laboratory - Chemistry Order VITAMIN B12 [facility]LO[facility] ([facility]SERUM) [facility] Oct 04, 2024 03:38 PM Consult Order PODIATRY/NHM OUTPT Cons Operating System Programmer's Choice [facility] Oct 06, 2024 10:44 AM Consult Order COMMUNITY CARE-NEPHROLOGY Cons Operating System Programmer's Choice [facility] Nov 09, 2024 12:00 AM Laboratory - Chemistry Order HEMOGLOBIN A1C PANEL BLOOD (LAV-BLOOD) [facility] Nov 09, 2024 12:00 AM Laboratory - Chemistry Order LIPID PANEL FASTING BLOOD (SST-SERUM) [facility] Nov 09, 2024 12:00 AM Laboratory - Chemistry Order BASIC METABOLIC PANEL (fasting) BLOOD (SST-SERUM) [facility] [place] [facility] Nov 09, 2024 12:00 AM Laboratory - Chemistry Order LIVER FUNCTION BLOOD (SST-SERUM) [facility] Nov 09, 2024 12:00 AM Laboratory - Chemistry Order MICROALBUMIN CREATININE RATIO PANEL URINE (RANDOM) SP [facility] Lab Results: +/- 30 days of [...] Range Comment Oct 04, 2024 02:52 PM [facility] BNP (Natriuretic Peptide Brain) Specimen Type: PLASMA No comment entered. Ordering Provider: KENAN RUBALCAVA F Report Released Date/Time: Sep 14, 2024 03:33 PM Reporting Lab: [facility] [address] [facility] [address] Performing Lab: [facility] [address] BNP (Natriuretic Peptide Brain) 291 pg/mL H 10-100 Oct 04, 2024 02:52 PM [facility] VITAMIN B12 Specimen Type: SERUM No comment entered. Ordering Provider: KENAN RUBALCAVA F Report Released Date/Time: Sep 14, 2024 03:33 PM Reporting Lab: [facility] [address] [address] Performing Lab: [facility] [address] VITAMIN B12 597 pg/mL 200-900 Oct 04, 2024 02:52 PM [facility] MICROALBUMIN CREATININE RATIO PANEL Specimen Type: URINE No comment entered. Ordering Provider: KENAN RUBALCAVA F Report Released Date/Time: Sep 14, 2024 03:33 PM Reporting Lab: [address] [address] Performing Lab: [address] [address] MICROALBUMIN/C REATININE RATIO 2418.7 mg/g H 0-29.9 MICROALBUMIN,Q UANTITATIVE 186.0 mg/dL RR UNAVAIL CREATININE URINE 76.90 mg/dL Oct 04, 2024 02:52 PM [facility] HEMOGLOBIN A1C PANEL Specimen Type: BLOOD Comment: Values obtained from A1C measurements can vary. For atypical A1C assays, a reported value of 7.0 could actually be between 6.72 and 7.28 if measured by a reference method. A reported value of 9.0 could actually be between 8.73 and 9.27. Ref: http://www.ngs p.org/CAPdata. asp Ordering Provider: KENAN RUBALCAVA Report Released Date/Time: Sep 14, 2024 03:33 PM Reporting Lab: [address] [address] Performing Lab: [address] [address] HEMOGLOBIN A1C 9.2 H 4.0-5.6 Oct 04, 2024 02:52 PM [facility] BASIC METABOLIC PANEL (fasting) Specimen Type: SERUM No comment entered. Ordering Provider: KENAN RUBALCAVA Report Released Date/Time: Sep 14, 2024 03:33 PM Reporting Lab: [address] [address] Performing Lab: [address] [address] UREA NITROGEN 25 mg/dL 7-25 GLUCOSE 192 mg/dL H 65-100 SODIUM 138 mmol/L 135-145 POTASSIUM 4.3 mmol/L 3.5-5.0 CHLORIDE 104 mmol/L 100-110 CO2 23 meq/L 20-30 CREATININE, Serum 1.53 mg/dL H 0.50-1.40 eGFR(CKD-EPI 2020) 45 mL/min L >60 Oct 04, 2024 02:52 PM [facility] CBC Specimen Type: BLOOD No comment entered. Ordering Provider: KENAN RUBALCAVA F Report Released Date/Time: Sep 14, 2024 03:33 PM Reporting Lab: [facility] [address] [facility] [address] Performing Lab: [facility] [address] [facility] [address] WBC 9.81 10*3/uL 4.50-11.00 RBC 5.95 10*6/uL H 4.23-5.66 HGB 15.9 g/dL 12.8-17 HCT 48.7 39.2-50.4 MCV 81.8 fL L 82-99 MCHC 32.6 g/dL 30.8-35.1 PLT 239 10*3/uL 140-360 RDW-CV 14.5 12.0-16.0 MCH 26.7 pg 26.2-32.6 Oct 04, 2024 02:52 PM [facility] LIPID PANEL FASTING Specimen Type: SERUM No comment entered. Ordering Provider: KENAN RUBALCAVA F Report Released Date/Time: Sep 14, 2024 03:33 PM Reporting Lab: [facility] [address] [facility] [address] Performing Lab: [address] [address] CHOLESTEROL 190 mg/dL TRIGLYCERIDE 65 mg/dL 0-150 LDL calculated 115 mg/dL 0-129 CHOL/HDL 3.1 HDL CHOLESTEROL 62 mg/dL H 40-60 Oct 04, 2024 02:52 PM [facility] LIVER FUNCTION Specimen Type: SERUM No comment entered. Ordering Provider: KENAN RUBALCAVA F Report Released Date/Time: Sep 14, 2024 03:33 PM Reporting Lab: [facility] [address] [facility] [address] Performing Lab: [address] [address] PROTEIN,TOTAL 8.2 g/dL 6.0-8.3 ALBUMIN 4.2 g/dL 3.5-5.0 ALKALINE PHOSPHATASE 119 U/L 40-150 AST 19 U/L 5-34 ALT 23 U/L BILIRUBIN, TOTAL 0.6 mg/dL 0.2-1.2 Social History: Smoking Status (Most current) and Tobacco Use (All prior to encounter date) This section includes the most current, and the historical, smoking and tobacco- related health factors from the [place] facility where the Encounter took place. Current Smoking Status This section includes the most current smoking, or tobacco-related health factor, from the [place] facility where the Encounter took place. Date/Time Current Smoking Status Comment Facil ity May 24, 2024 03:30 PM VA-TOBACCO NEVER USED [place] [facility] [place] [facility] Tobacco Use History This section includes a history of the smoking, or tobacco-related health factors, that were collected on or before the date of the Encounter. The data comes from the [place] facility where the Encounter took place. Date/Time Smoking Status/Tobacco Use Comment F acility May 08, 2023 03:00 PM VA-TOBACCO NEVER USED [place] [facility] [facility] Apr 11, 2022 03:30 PM VA-TOBACCO FORMER USER [place] [facility] [facility] Apr 11, 2022 03:30 PM VA-TOBACCO QUIT 15 YRS OR MORE [place] [facility] [facility] Mar 14, 2020 09:40 AM VA-TOBACCO NEVER USED [place] [facility] [place] [facility] Nov 09, 2018 02:01 PM VA-TOBACCO NEVER USED [place] [facility] [place] [facility] Jan 08, 2018 11:02 AM QUIT TOBACCO USE > 7 YEARS AGO [place] [facility] [place] [facility] Jan 15, 2017 01:29 PM LIFETIME NON-TOBACCO USER [place] [facility] [place] [facility] Sep 26, 2015 09:49 AM LIFETIME NON-TOBACCO USER . [place] [facility] [place] [facility] Apr 03, 2011 10:58 AM LIFETIME NON-TOBACCO USER [place] [facility] [facility] Advance Directives: All historical and current Section Date Range: From patient's date of to the date document was created. This section includes ALL of a patient's completed or amended [place] Advance and Rescinded Directives. The entries below indicate that a directive exists for the patient, but an actual copy is not included with this document. The data comes from all [place] facilities. Date Advance Directives Provider Source Aug 21, 2021 ADVANCE DIRECTIVE JAVIER CHILDERS [facility] Encounter Notes: All associated encounter notes This section contains the clinical notes associated to the Encounter. Date/Time Encounter Note(s) Provider Source Oct 20, 2024 02:34 PM SOCIAL WORK NOTE: LOCAL TITLE: SOCIAL WORK NOTE STANDARD TITLE: SOCIAL WORK NOTE DATE OF NOTE: OCT 20, 2024@14:34 ENTRY DATE: OCT 20, 2024@14:34:57 AUTHOR: JAVIER ESPAÑA EXP COSIGNER: URGENCY: STATUS: COMPLETED Shell Molder reached out to [employer] to check in. Mae from [facility] answered phone I am just getting ready to leave. Could you call me at the office . Scheduled for return call. Shell Molder spoke to who reported I was not taking my medication properly beacuse the service stopped cming another service was suppose to come and they did not come for a few weeks but now things are better because they started coming in 5 days ago and getting the pills together the problem seem to disappear. [facility] reported inconsistencies in setting up my medication, the people that came in mixed things up but now they are coming in and doing what they are suppose to be doing . According to [facility] medication routine was interrupted for about a month due to inconsistencies in setting up medication. Wtiter will follow-up with Mae from [facility]. /pancho/ OBINNA CORNEJO LICENSED INDEPENDENT CLINICAL DRY HOUSE TENDER Signed: 10/20/2024 14:47 Receipt Acknowledged By: 10/20/2024 16:16 /es/ JENNA MCNAMARA, PhD STAFF PSYCHOLOGIST JAVIER ESPAÑA [facility]
--- OUTSIDE RECORDS SUMMARY | 2024-10-31 17:03 | XMS_ITS | Encounter Summary ---
Author Name [facility] [place] Organization [place] Address [address] [place] [address] Care Team Providers Care Field Appraiser Name Role Phone RUTHIE RUBLACAVA Primary Care Provider Unavail able Insurance Providers: [...] PART B Dec 27, 2005 PART B [id number] [facility] [phone] JOSEFINA BUSTILLOS PATIENT MEDICARE (WNR) MEDICARE (M) PART A Dec 27, 2005 PART A [id number] [facility] JOSEFINA BUSTILLOS PATIENT MEDICARE (WNR) MEDICARE (M) PART A Dec 27, 2005 PART A [id number] [phone] JOSEFINA BUSTILLOS PATIENT MEDICARE (WNR) MEDICARE (M) PART B Dec 27, 2005 PART B [id number] [phone] JOSEFINA BUSTILLOS PATIENT Selected Encounter This section includes the information on record at [place] for the Encounter. Date/Time Encounter Type Encounter Description Reason Provider Source Mar 08, 2024 02:46 PM CASE MANAGEMENT [facility] FOLLOW-UP ICD-10-CM I50.9 Heart failure, unspecified PIYUSHWALE BOLAÑOS Marv Encounter Template Text not used by [place] Assessments - Encounter Diagnoses This section includes the primary and secondary diagnoses documented for the Encounter. Date/Time Primary/Secondary Diagnosis Diagnosis Name Provider Source Mar 08, 2024 03:06 PM PRIMARY Heart failure, unspecified PIYUSHTOÑOJuanJuan J [place] [facility] [facility] Plan of Treatment: Future Appointments (+ 6 months) and Future Tests (+/- 45 days) The Plan of Treatment section includes future care activities for the patient from all [place] [facility]. This section includes future appointments and future orders which are active, pending or scheduled. Future Appointments This section includes appointments that were scheduled to occur 6 months from the date of the Encounter, up to a maximum of 20 appointments. The data comes from all [place] treatment facilities. Appointment Date/Time Appointment Type Appointme nt Facility Name Mar 15, 2024 08:00 AM AMBULATORY - MEDICINE [place] [facility] [place] [facility] Apr 12, 2024 03:30 PM AMBULATORY - MEDICINE [place] [facility] [place] [facility] May 11, 2024 08:00 AM AMBULATORY - MEDICINE [place] [facility] [place] [facility] May 15, 2024 08:00 AM AMBULATORY - MEDICINE [place] [facility] [place] [facility] May 24, 2024 03:30 PM AMBULATORY - MEDICINE [place] [facility] [place] [facility] Jul 06, 2024 08:00 AM AMBULATORY - NONE [place] [facility] [place] [facility] Jul 12, 2024 03:30 PM AMBULATORY - MEDICINE [place] [facility] [place] [facility] Jul 13, 2024 11:45 AM AMBULATORY - MEDICINE [place] [facility] [place] [facility] Jul 26, 2024 08:00 AM AMBULATORY - NONE [place] [facility] [place] [facility] Aug 10, 2024 08:00 AM AMBULATORY - NONE [place] [facility] [place] [facility] Social History: Smoking Status (Most current) [...] 08, 2023 03:00 PM VA-TOBACCO NEVER USED [facility] Tobacco Use History This section includes a history of the smoking, or tobacco-related health factors, that were collected on or before the date of the Encounter. The data comes from the [place] facility where the Encounter took place. Date/Time Smoking Status/Tobacco Use Comment F acility Apr 11, 2022 03:30 PM [facility] Apr 11, 2022 03:30 PM VA-TOBACCO QUIT 15 YRS OR MORE [facility] Mar 14, 2020 09:40 AM VA-TOBACCO NEVER USED [facility] Nov 09, 2018 02:01 PM [facility] Jan 08, 2018 11:02 AM QUIT TOBACCO USE > 7 YEARS AGO [facility] Jan 15, 2017 01:29 PM LIFETIME NON-TOBACCO USER [facility] Sep 26, 2015 09:49 AM LIFETIME NON-TOBACCO USER . [facility] Apr 03, 2011 10:58 AM LIFETIME NON-TOBACCO [facility]ER [facility] Advance Directives: All historical and current Section [...] Aug 21, 2021 ADVANCE DIRECTIVE [facility]ERS [facility] Encounter Notes: All associated encounter notes This section contains the clinical notes associated to the Encounter. 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% S/C LOSS OF ONE TOE 0% S/C FLAT FOOT CONDITION 20% S/C Visit completed by: Stripping And Booking Machine Operator Date of visit: March 02, 2024 [facility] ([facility]) Name: AUGUSTIN SALMERON [facility] Type of visit: On-site Information provided by: Reason for placement: Rehabilitation INFORMATION OBTAINED DURING VISIT WITH ASSESSMENT OF COGNITION, COMMUNICATION, MOOD AND BEHAVIOR ------- Mental status: Alert Oriented to person Oriented to place Oriented to time Oriented to situation voiced, experienced, or reported delusions (misconceptions or beliefs that are firmly held, contrary to reality), hallucinations (perceptual experiences in the absence of real or external sensory stimuli) or any other unusual thought process/content/altered perception during the visit: No Thought content: Within normal limits Mood/behavior: Cooperative/pleasant Hearing: Minimal difficulty (difficulty in some environments) Vision: Adequate (does not require corrective lenses) Speech: Clear speech (distinct intelligible words) Communication (ability to understand): Understands (clear comprehension) Communication (ability to be understood): Understood (able to make themselves understood) SUICIDE SCREEN Annual C-SSRS completed. SATISFACTION is satisfied with care received at the [facility]. [place] reported no other concerns/complaints since placement or last visit. Comment: However, [place] reported he had some angry words with lead front end developer staff who he said questioned whether he was safe to exit the building to sit outside. /Warp Hauler feels Montreat's rights as a resident of a custodial have been maintained (i.e., the right to be treated with dignity and respect, free from abuse, neglect and discrimination based on race, color, national origin, disability, age, sex, sexual orientation, or zoroastrianism): Yes [facility] staff provided a copy of the [place] reference sheet, containing contact information for [facility] staff and the [facility]Term [facility], to the Montreat/Warp Hauler: Yes appears to be well adjusted to residing in this [facility]: Yes [place] is offered daily activities: Yes [place] is offered spiritual services: Yes [facility] STAFF OBSERVATIONS Quality of sensory and environmental aesthetic is adequate: Yes Facility cleanliness is adequate: Yes Fluids available: Yes Montreat's appearance: Montreat appeared: Appropriately groomed, dressed for time of day, dressed for weather/season, body clean, clothes clean shelter staff is courteous: Yes Total time spent for visit (in minutes) 25 min Total travel time 5 min INFORMATION OBTAINED FROM [facility] MEDICAL RECORD REVIEW Hospitalization since placement or last visit: No Emergency room visit since placement or last visit: No CLINICAL REVIEW Socialization Ability: Fair Restraint free since placement or last visit: Yes Behavioral symptoms present: No Comment: Aside from some somewhat irrational defensiveness around his ability to leave if he so chooses. FUNCTIONAL STATUS Activity of Daily Living (ADL) Loss of ADL function since placement or last visit: No Additional comments (follow-up): is reportedly able to walk with his walker and is steady on his feet despite wounds. Weights and vital signs recorded monthly, or as ordered: Yes Most recent weight taken by [facility] staff: Weight (lbs.): 224 lbs. Date: February 27, 2024 Weight loss of 5% or greater in the last 3 months: No Diet: Regular, other: diabetic and diabetic snacks offered. Skin assessment completed at appropriate intervals: Yes Pressure injuries: None Specialized wound care: Non-pressure wounds: stage 3 bilateral wounds including, blistering to lower extremities after lack of self-care post hospital discharge to home (prior to admissions to facility) healing. Montreat is not being treated for pain. DOCUMENTATION OVERSIGHT Physician, Nursing, and Oxygen Furnace Operator documentation completed at regular intervals in accordance with State regulations: Yes assessed by a provider at required intervals: Yes As needed (PRN) medication effectiveness is documented: N/A [facility] Plan of Care updated: Yes Date Plan of Care updated: February 29, 2024 Care plan reflects Montreat's individualized care needs and includes multidisciplinary participation: Yes LIFE-SUSTAINING TREATMENT 's preferences for Life-Sustaining Treatment (LST) are documented and have been reviewed in the [facility] medical record: Yes, no further review indicated at this time. Montreat's Life-Sustaining Treatment (LST) progress note and orders are documented in the [place] medical record: Yes Date of document: August 21, 2021 SAFETY ------ Montreat has not fallen since placement or last visit. No medication errors since placement or last visit. attempted to elope from the facility: No Evidence of abuse/neglect either confirmed or under investigation: No Other adverse event(s) since placement or last visit: No LEVEL OF CARE MDS RUG or PDPM score is consistent with the 's care needs. DISPOSITION appears with low care needs where an alternative level of care may be appropriate: No Discharge plan in place: Yes Anticipated discharge date: pending continued wound care evaluation Discharge to: Home Barriers to planned discharge: Yes Explanation: wounds continue to heal Transportation needs: No PROGRAM CARE COORDINATION PLAN ----- [place] PLAN OF CARE: Sight visits will continue from [facility] program family welfare social work professor and nurse every 45 days until is discharged from facility. Total time spent for chart review (in minutes) 35 min /pancho/ WALE LLANES NIGHT CUSTODIAN Signed: 03/08/2024 15:06 WALE LLANES [facility]
--- OUTSIDE RECORDS SUMMARY | 2024-10-31 17:03 | XMS_ITS | Encounter Summary ---
Author Name [facility] [place] Organization [facility] [place] Address [address] [place] [id number] Care Team Providers Care Kennel Operator Name Role Phone RUTHIE RUBALCAVA Primary [...] PART B Dec 27, 2005 PART B [id number] [facility] APOLLOJOSEFINA SHANE PATIENT MEDICARE (WNR) MEDICARE (M) PART A Dec 27, 2005 PART A [id number] [facility] [phone] APOLLOJOSEFINA SHANE PATIENT MEDICARE (WNR) MEDICARE (M) PART B Dec 27, 2005 PART B [id number] [facility] APOLLOJOSEFINA SHANE PATIENT Selected Encounter This section includes the information on record at [place] for the Encounter. Date/Time Encounter Type Encounter Description Reason Pro vider Source Oct 19, 2024 04:17 PM Outpatient Encounter TELEPHONE CASE MANAGEMENT IHE Encounter Template Text not used by [...] 20 appointments. The data comes from all [facility]. Appointment Date/Time Appointment Type Appointme nt Facility Name Nov 01, 2024 02:00 PM AMBULATORY - MEDICINE [facility] Dec 01, 2024 02:00 PM [facility] Dec 16, 2024 02:30 PM AMBULATORY - MEDICINE [facility] Active, Pending, and Scheduled Orders This section includes a listing of several types of active, pending, and scheduled orders, including clinic medications orders, diagnostic test orders, procedure orders and consult orders; where the start date of the order is 45 days before the date of the Encounter or 45 days after the date of theEncounter. The data comes from all [facility]. Test Date/Time Test Type Test Details Facility Name Sep 14, 2024 12:00 AM Laboratory - Chemistry Order VITAMIN B12 BLOOD (SST-SERUM) [facility] Oct 04, 2024 03:38 PM Consult Order PODIATRY/NHM OUTPT Cons Flue Tile Press Operator's Choice [facility] Oct 06, 2024 10:44 AM Consult Order COMMUNITY CARE-NEPHROLOGY Cons Flue Tile Press Operator's Choice [facility] Nov 09, 2024 12:00 AM Laboratory - Chemistry Order HEMOGLOBIN A1C PANEL BLOOD (LAV-BLOOD) [facility] Nov 09, 2024 12:00 AM Laboratory - Chemistry Order LIPID PANEL FASTING BLOOD (SST-SERUM) [facility] Nov 09, 2024 12:00 AM Laboratory - Chemistry Order BASIC METABOLIC PANEL (fasting) BLOOD (SST-SERUM) [facility] Nov 09, 2024 12:00 AM Laboratory - Chemistry Order LIVER FUNCTION BLOOD (SST-SERUM) [facility] Nov 09, 2024 12:00 AM Laboratory - Chemistry Order MICROALBUMIN CREATININE RATIO PANEL URINE (RANDOM) SP [facility] Lab Results: +/- [...] Sep 14, 2024 03:33 PM Reporting Lab: [address] [address] Performing Lab: [address] [address] VITAMIN B12 597 pg/mL 200-900 Oct 04, 2024 02:52 PM [facility] BNP (Natriuretic Peptide Brain) Specimen Type: PLASMA No comment entered. Ordering Provider: KENAN RUBALCAVA F Report Released Date/Time: Sep 14, 2024 03:33 PM Reporting Lab: [address] [address] Performing Lab: [address] [address] BNP (Natriuretic Peptide Brain) 291 pg/mL H 10-100 Oct 04, 2024 02:52 PM [facility] MICROALBUMIN CREATININE RATIO PANEL Specimen Type: URINE No comment entered. Ordering Provider: KENAN RUBALCAVA F Report Released Date/Time: Sep 14, 2024 03:33 PM Reporting Lab: [address] [address] Performing Lab: [address] [address] MICROALBUMIN/C REATININE RATIO 2418.7 mg/g H 0-29.9 [...] Sep 14, 2024 03:33 PM Reporting Lab: [address] [address] Performing Lab: [address] [address] HEMOGLOBIN A1C 9.2 H 4.0-5.6 Oct 04, 2024 02:52 PM [facility] BASIC METABOLIC PANEL (fasting) Specimen Type: SERUM No comment entered. Ordering Provider: KENAN RUBALCAVA F Report Released Date/Time: Sep 14, 2024 03:33 PM Reporting Lab: [address] [address] Performing Lab: [address] [address] UREA NITROGEN 25 mg/dL 7-25 GLUCOSE 192 [...] Sep 14, 2024 03:33 PM Reporting Lab: [address] [address] Performing Lab: [facility] [address] [facility] [address] WBC 9.81 10*3/uL 4.50-11.00 RBC 5.95 10*6/uL [...] Sep 14, 2024 03:33 PM Reporting Lab: [address] [address] Performing Lab: [address] [address] CHOLESTEROL 190 mg/dL TRIGLYCERIDE 65 mg/dL 0-150 LDL calculated 115 mg/dL 0-129 CHOL/HDL 3.1 HDL CHOLESTEROL 62 mg/dL H 40-60 Oct 04, 2024 02:52 PM [facility] LIVER FUNCTION Specimen Type: SERUM No comment entered. Ordering Provider: KENAN RUBALCAVA F Report Released Date/Time: Sep 14, 2024 03:33 PM Reporting Lab: [address] [address] Performing Lab: [address] [address] PROTEIN,TOTAL 8.2 g/dL 6.0-8.3 ALBUMIN 4.2 g/dL 3.5-5.0 ALKALINE PHOSPHATASE 119 U/L 40-150 AST 19 U/L 5-34 ALT 23 U/L BILIRUBIN, TOTAL 0.6 mg/dL 0.2-1.2 Social History: Smoking Status (Most current) and Tobacco Use (All prior to encounter date) This section includes the most current, and the historical, smoking and tobacco- related health factors from the [place] facility where the Encounter took place. Current Smoking Status This section includes the most current smoking, or tobacco-related health factor, from the [place] facility where the Encounter took place. Date/Time Current Smoking Status Comment Danilo ity May 24, 2024 03:30 PM VA-TOBACCO [facility] USED [facility] Tobacco Use History This section includes a history of the smoking, or tobacco-related health factors, that were collected on or before the date of the Encounter. The data comes from the [place] facility where the Encounter took place. Date/Time Smoking Status/Tobacco Use Comment Yelitza acjackeline May 08, 2023 03:00 PM [facility] Apr 11, 2022 03:30 PM VA-TOBACCO FORMER USER [place] [facility] [place] [facility] Apr 11, 2022 03:30 PM VA-TOBACCO QUIT 15 YRS OR MORE [facility] Mar 14[facility] 2020 09:40 AM [facility]AC[facility] Nov 09, 2018 02:01 PM VA-TOBACCO NEVER USED [place] [facility] [place] [facility] Jan 08, 2018 11:02 AM QUIT TOBACCO USE > 7 YEARS AGO [place] [facility] Jan 15, 2017 01:29 PM LIFETIME NON-TOBACCO USER [place] [facility] [place] [facility] Sep 26, 2015 09:49 AM LIFETIME NON-TOBACCO USER . [place] [facility] Apr 03, 2011 10:58 AM LIFETIME NON-TOBACCO USER [facility] Advance Directives: All historical and current Section Date Range: From patient's date of to the date document was created. This section includes ALL of a patient's completed or amended [place] Advance and Rescinded Directives. The entries below indicate that a directive exists for the patient, but an actual copy is not included with this document. The data comes from all [place] facilities. Date Advance Directives Provider Source Aug 21, 2021 ADVANCE DIRECTIVE JAVIER CHILDERS [facility] Encounter Notes: All associated encounter notes This section contains the clinical notes associated to the Encounter. Date/Time Encounter Note(s) Provider Source Oct 19, 2024 04:17 PM SOCIAL WORK NOTE: LOCAL TITLE: SOCIAL WORK NOTE STANDARD TITLE: SOCIAL WORK NOTE DATE OF NOTE: OCT 19, 2024@16:17 ENTRY DATE: OCT 19, 2024@16:17:28 AUTHOR: JAVIER ESPAÑA EXP COSIGNER: URGENCY: STATUS: COMPLETED Revit Drafter reached out to [place]. There were no options to leave VM message,due to multiple rings. Revit Drafter successfully filed report with Juliana from [employer]. Mundo stated report will be sent to [facility] It is possible all parties involved with elder's care will be contacted as part of the investigation. Adding PACT and others to note. duration of call 40 minutes /pancho/ OBINNA CORNEJO LICENSED INDEPENDENT CLINICAL COMMERCIAL HORTICULTURE INSTRUCTOR Signed: 10/19/2024 16:18 JAVIER ESPAÑA [place] [facility]
--- OUTSIDE RECORDS SUMMARY | 2024-10-31 17:03 | XMS_ITS | Encounter Summary ---
Author Name [facility] [place] Organization [facility] Address [address] [place] [address] Care Team Providers Care Medication Care Manager Name Role Phone RUTHIE RUBALCAVA Primary Care [...] PART B Dec 27, 2005 PART B [id number] [facility] JOSEFINA BUSTILLOS PATIENT MEDICARE (WNR) MEDICARE (M) PART A Dec 27, 2005 PART A [id number] [facility] [phone] JOSEFINA BUSTILLOS PATIENT MEDICARE (WNR) MEDICARE (M) PART A Dec 27, 2005 PART A [id number] JOSEFINA BUSTILLOS CHARD PATIENT MEDICARE (WNR) MEDICARE (M) PART B Dec 27, 2005 PART B [id number] [phone] JOSEFINA BUSTILLOS PATIENT Selected Encounter This [...] ALL of a patient's completed or amended [place] Advance and Rescinded Directives. The entries below indicate that a directive exists for the patient, but an actual copy is not included with this document. The data comes from all [place] facilities. Date Advance Directives Provider Source Aug 21, 2021 ADVANCE DIRECTIVE JAVIER CHILDERS [place] [facility]
[2024-10-31 17:06] LABS: Creatinine Urine 45.18 mg/dL; Total Protein Urine Random 44 mg/dL (<12)
[2024-10-31 17:07] LABS: Alanine Aminotransferase 29 U/L (0-40); Albumin Level 4.1 g/dL (3.5-5.0); Alkaline Phosphatase 114 U/L (39-117); Anion Gap 14 (12-20); Aspartate Amino Transferase 23 U/L (5-37); Bilirubin Total 0.7 mg/dL (0.0-1.0); Blood Urea Nitrogen 30 mg/dL (9-16); Carbon Dioxide 24 mmol/L (22-29); Chloride 104 mmol/L (96-108); Estimated Glomerular Filt Rate 54; Glucose Random 149 mg/dL (60-115); Parathyroid Hormone Intact 231.7 pg/mL (8.7-77.1); Potassium 3.8 mmol/L (3.3-5.1); Sodium 138 mmol/L (135-145); Total Protein 7.6 g/dL (6.5-8.0)
[2024-10-31 17:25] LABS: Vitamin D 25-OH Total 27.5 ng/mL (>30)
== END 2024-10-31 14:55 | disposition home or self-care (01) ==
LOC: HO.LAB 14:54
PROVIDERS: PCP Physician Assistant; Referring Provider Physician Assistant; Visit Provider Internal Medicine Hypertension Specialist
DX: N18.9 Chronic kidney disease, unspecified (principal); I10 Essential (primary) hypertension
CPT/HCPCS: 36415; 80053; 81001; 82306; 82570; 83970; 84156; 85025; 99202

== ENCOUNTER 2024-11-26 11:35 | Emergency (ER) | payer OTHER, SELFPAY ==
--- NOTE | ~2024-11-26 | XR_ITS ---
CLINICAL HISTORY: post reduction 3 view left shoulder Comparison: CR - XR SHOULDER LT MIN 2V - 11/26/24 12:28 EST Findings: Status post reduction of the shoulder dislocation. On the Y-view, there is a calcification superior to the scapula. Degenerative change of the AC joint. No erosions. No radiopaque foreign body. IMPRESSION: Postreduction of the shoulder dislocation. On the Y-view, there is a calcification superior to the scapula. Fracture can not be excluded. CT correlation as indicated. This document has been electronically signed by: Collin Vickers MD on 11/26/2024 13:54:56
--- NOTE | ~2024-11-26 | XR_ITS ---
CLINICAL HISTORY: Highly suspect dislocation, evaluate for fracture 2 view left shoulder Comparison: None Findings: The humeral head is anterior to the glenoid. No acute fracture. No erosions. No radiopaque foreign body. IMPRESSION: Suspect anterior dislocation of the shoulder. No fracture is noted on the current single view. This document has been electronically signed by: Collin Vickers MD on 11/26/2024 12:56:08
--- NOTE | ~2024-11-26 | CT_ITS ---
CLINICAL HISTORY: Question fracture on postprocedure x-ray CT left shoulder without contrast Comparison: CR/ME - XR SHOULDER LT MIN 2V - 11/26/24 13:16 EST CR - XR SHOULDER LT MIN 2V - 11/26/24 12:28 EST Findings: No fractures or dislocations. Degenerative change of the AC joint. Tiny calcification adjacent to the coracoid process. Small soft tissue calcification adjacent to the proximal humerus. The findings are nonspecific. Normal visualized left chest. Impression: No definite evidence of acute fracture of the shoulder. This document has been electronically signed by: Collin Vickers MD on 11/26/2024 15:34:22
--- NOTE | 2024-11-26 11:37 | ED_ITS ---
HPI - Fall General Chief Complaint: Fall Stated Complaint: fall on left shoulder Time Seen by Provider: 11/26/24 11:37 Source: patient and EMS Mode of arrival: EMS Limitations: no limitations History of Present Illness ED Provider: Ever Scott DO HPI Narrative: 84-year-old male with past medical history of type 2 diabetes, and CAD status post CABG in 2019 who presents to the emergency department via EMS due to a fall and shoulder injury. Patient is right-hand dominant. He states he was using his walker to walk up to the [employer] shop for a haircut. He noticed that it was close and when he turned around he slipped on ice, causing him to fall onto his left side. Denies head strike, loss of consciousness, prodromal symptoms, neck pain, back pain, right upper extremity pain, bilateral lower extremity pain, numbness or weakness of his arms and only reports pain limited to the left shoulder. He denies previous orthopedic surgeries of the left shoulder. Home medications include clopidogrel, furosemide, insulin, losartan, metoprolol Related Data Home Medications ?Medication ?Instructions ?Recorded ?Confirmed amlodipine 10 mg tablet 10 mg PO DAILY 07/04/24 11/26/24 clopidogrel 75 mg tablet 75 mg PO DAILY 07/04/24 11/26/24 furosemide 40 mg tablet 40 mg PO DAILY 07/04/24 11/26/24 insulin glargine-yfgn 100 unit/mL 40 unit subcut DAILY 07/04/24 11/26/24 (3 mL) subcutaneous pen losartan 100 mg tablet 100 mg PO DAILY 07/04/24 11/26/24 sennosides 8.6 mg tablet (senna) 8.6 mg PO DAILY PRN Constipation 07/04/24 11/26/24 Allergies Allergy/AdvReac Type Severity Reaction Status Date / Time hydrochlorothiazide Allergy Unknown Unknown Verified 11/26/24 11:45 No Known Drug Allergies Allergy Unknown NONE Verified 11/26/24 11:45 Review of Systems 2 Review of Systems: Yes all other systems are reviewed and are negative [facility] Past Medical History Medical History Congestive heart failure Type 2 diabetes mellitus Coronary artery disease Surgical History Hx of CABG Social History Social History Household Members: Unknown / Unable to assess Housing: Unknown / Unable to assess Patient Tobacco Use Status: Tobacco use Unknown Advance Directives: No Advance Directives Information Provided: No Do you have a plan to hurt others: No Plan Physical Exam 2 Vital Signs: Vital Signs: Last Vital Signs Temp 98.5 F 11/26/24 20:38 Pulse 92 11/26/24 20:38 Resp 16 11/26/24 20:38 BP 151/79 H 11/26/24 20:38 Pulse Ox 93 11/26/24 20:38 O2 Del Method Room Air 11/26/24 20:38 BMI result Body Mass Index 33.0 Constitutional: ?Alert, oriented, speaking in full sentences, jovial, does not appear in discomfort while at rest HEENT: ?Normocephalic, atraumatic. ?Moist mucous membranes, Mallampati class 1 Eyes: ?PERRL, EOMI Neck: ?Supple, nontender Chest: ?No chest wall tenderness Respiratory: ?Lungs clear to auscultation, no increased work of breathing Cardio: ?Regular rate and rhythm, no murmur, 2+ radial and DP pulses symmetrically, 1+ pitting edema of the bilateral lower extremities below the knees GI: ?Soft, nondistended, nontender Back: ?Normal range of motion, nontender Skin: ?No rash, no lesions Neuro: ?Alert and oriented to person, place and time, moves all 4 extremities, no focal deficits, 5/5 strength of the bilateral upper extremities, sensation fully intact Extremities: ?Left shoulder exam shows a palpable deformity over the glenohumeral joint with a step-off. No tenting of the skin. No overlying bruising. No specific focal tenderness to palpation but there is discomfort with attempt to range the left shoulder. The patient has full range of motion of the wrist and hand and no tenderness over the elbow. Psych: ?Calm, alert and cooperative, appropriate behavior Course Course Course Narrative: At 01:30 p.m., patient placed in physician observation pending physical therapy and case management evaluations. Insulin sliding scale ordered and medication reconciliation pending nurse review. Medications Administered Generic Name Dose Route Start Last Admin Trade Name Freq PRN Reason Stop Dose Admin Insulin Human Lispro 0 unit 11/26/24 16:30 11/26/24 20:49 Insulin Lispro 100 Unit/Ml 3 Ml Vial SUBCUT 11/27/24 13:36 6 unit QIDACHS [facility] Administration Protocol Discontinued Medications Generic Name Dose Route Start Last Admin Trade Name Shadi PRN Reason Stop Dose Admin Furosemide 40 mg 11/26/24 18:44 11/26/24 20:48 Furosemide 40 Mg Tablet PO 11/26/24 18:45 40 mg ONCE ONE Administration Protocol Hydromorphone HCl 0.5 mg 11/26/24 11:51 11/26/24 12:07 Hydromorphone Hcl 0.5 Mg/0.5 Ml Syringe IVPUSH 11/26/24 11:52 0.5 mg ONCE ONE Administration Protocol Acetaminophen 1,000 mg in 100 mls @ 400 mls/hr 11/26/24 11:51 11/26/24 13:31 Ofirmev IV 11/26/24 12:05 Infused ONCE ONE Infusion Procedures Orthopedic Joint Reduction Left shoulder: Time Out Performed: Yes Side: left Joint Reduction Location: shoulder Analgesia: none Shoulder Technique Used (if applicable): traction/counter-traction, scapula manipulation and external rotation Post-reduction neuro exam: intact Post-reduction vascular: intact Post Reduction X-Ray Obtained: Yes Post Reduction X-Ray Results: reduced Splint Applied: Yes Patient Tolerated Procedure: well Additional Comments: Sling placed. Medical Decision Making Medical Decision Making MDM Narrative: Patient presenting due to a mechanical fall with trauma limited to the left shoulder. I do not suspect head injury. I do suspect a left humerus dislocation with possible fracture. Ordered for IV acetaminophen and IV hydromorphone as well as x-ray imaging. There is a great chance the patient will require physical therapy and case management consultation once medically managed due to his walker use at home and inability to bear weight due to his injury today. He is neurovascularly intact distally. We will attempt gentle maneuvers and escalate with sedation if acquired for reduction. Patient tolerated gentle procedure very well, not requiring sedation. Repeat x- ray of the left shoulder per my independent interpretation shows successful reduction without any obvious fracture. Sling placed. Orders placed for suspected acute rehab given patient is baseline ambulation status with walker. Although there is some pitting edema of the bilateral lower extremities, the patient does not have increased work of breathing, hypoxia or adventitious lung sounds and I do not suspect CHF exacerbation at this time. We will provide home dose when medication reconciliation is complete. Home medications ordered as well as an additional dose of furosemide due to mild pitting edema. Patient does have a a decreased bicarb to 15 which may be secondary to mild dehydration. A diet has been ordered. He did not require fluids at this time. We will be further evaluated by Physical therapy and case management. Case signed out to overnight physician. Admission/Observation Consideration of admission/observation: Escalation of care including admission/observation considered Lab Data MDM Lab Attestation statement: I reviewed the patient's lab results. 11/26/24 12:03 11/26/24 12:03 Labs: Lab Results 11/26/24 11/26/24 11/26/24 Range/Units 12:03 15:32 20:41 WBC 10.1 (4.8-10.8) X10*3/uL RBC 5.25 (4.60-5.80) X10*6/uL Hgb 14.2 (14.0-18.0) g/dl Hct 42.6 (42.0-52.0) % MCV 81.1 (80.0-98.0) fL MCH 27.0 (27.0-33.0) pg MCHC 33.3 (31.0-36.0) g/dl RDW 13.5 (11.0-16.0) % Plt Count 241 (160-400) X10*3/uL MPV 10.7 (9.4-12.4) fL Immature Gran % (Auto) 0.9 H (0.0-0.4) % Neut % (Auto) 63.7 (45-73) % Lymph % (Auto) 21.4 (20-40) % Kerr % (Auto) 7.9 (2-11) % Eos % (Auto) 5.0 H (0-4) % Baso % (Auto) 1.1 (0-2) % Lymph # (Auto) 2.2 (1.2-4.9) X10*3/uL Kerr # (Auto) 0.8 (0.1-1.2) X10*3/uL Eos # (Auto) 0.5 H (0.0-0.4) X10*3/uL Baso # (Auto) 0.1 (0.0-0.2) X10*3/uL Abs Immat Gran (auto) 0.09 H (0.00-0.03) X10*3/uL Absolute Neuts (auto) 6.4 (2.0-8.3) x10*3/uL Absolute Nucleated RBC 0.000 (0.0-0.012) X10*3/uL Nucleated RBC % (auto) 0.0 (0.0-0.2) /100WBC Sodium 135 (135-145) mmol/L Potassium 4.0 (3.3-5.1) mmol/L Chloride 107 (96-108) mmol/L Carbon Dioxide 15 L (22-29) mmol/L Anion Gap 17 (12-20) BUN 37 H (9-16) mg/dL Creatinine 1.58 H (0.5-1.4) mg/dL Estim Creat Clear Calc 42.8 Estimated GFR 42 POC Glucose 295 H (60-115) mg/dL Random Glucose 327 H (60-115) mg/dL Calcium 9.4 (8.4-10.2) mg/dL Influenza Type A (PCR) NEGATIVE (Negative) Influenza Type B (PCR) NEGATIVE (Negative) RSV RNA Qual (PCR) NEGATIVE (Negative) SARS-CoV-2 RNA (RT-PCR) NEGATIVE (Negative) Independent Interpretation I performed an independent interpretation of an: Plain X-Ray Interpretation: Left shoulder x-ray per my independent interpretation shows an anterior dislocation with a possible fracture of the humeral head without displacement. Interpretation is limited secondary to only two views. No other fracture identified. Discharge Plan Discharge Clinical Impression: Dislocation of shoulder region Qualifiers: Encounter type: initial encounter Laterality: left Qualified Code(s): S43.005A - Unspecified dislocation of left shoulder joint, initial encounter Patient Disposition: Still a Patient Prescriptions: No Action furosemide 40 mg Tablet 40 mg PO DAILY sennosides [senna] 8.6 mg Tablet 8.6 mg PO DAILY PRN (Reason: Constipation) clopidogrel 75 mg Tablet 75 mg PO DAILY amlodipine 10 mg Tablet 10 mg PO DAILY losartan 100 mg Tablet 100 mg PO DAILY insulin glargine-yfgn 100 unit/mL (3 mL) Insulin Pen 40 unit SUBCUT DAILY Print Language: Australian
[2024-11-26 11:44] VITALS: BP 131/75; PULSE 87; RESP 20; TEMP 36.5; O2SAT 94; BMI 33.0
[2024-11-26] MEDS: Acetaminophen 1,000 MG/100 ML PIGGYBACK 400 MG IV (12:07)
[2024-11-26] MEDS: HYDROmorphone HCl 0.5 MG/0.5 ML SYRINGE IVPUSH (12:07)
[2024-11-26 12:08] LABS: MANUAL DIFF FLAG NO
[2024-11-26 12:11] LABS: Basophils Absolute Auto 0.1 X10*3/uL (0.0-0.2); Basophils Percent Auto 1.1 % (0-2); Eosinophils Absolute Auto 0.5 X10*3/uL (0.0-0.4); Hematocrit 42.6 % (42.0-52.0); Hemoglobin 14.2 g/dl (14.0-18.0); Imm Gran Abs Auto 0.09 X10*3/uL (0.00-0.03); Imm Gran Pct Auto 0.9 % (0.0-0.4); Lymphocytes Absolute Auto 2.2 X10*3/uL (1.2-4.9); Lymphocytes Percent Auto 21.4 % (20-40); Mean Corpuscular HGB Conc 33.3 g/dl (31.0-36.0); Mean Corpuscular Volume 81.1 fL (80.0-98.0); Mean Platelet Volume 10.7 fL (9.4-12.4); Monocytes Absolute Auto 0.8 X10*3/uL (0.1-1.2); Monocytes Percent Auto 7.9 % (2-11); Neutrophils Absolute Auto 6.4 x10*3/uL (2.0-8.3); Neutrophils Percent Auto 63.7 % (45-73); Platelet Count 241 X10*3/uL (160-400); Red Blood Count 5.25 X10*6/uL (4.60-5.80); Red Cell Distribution Width 13.5 % (11.0-16.0); White Blood Count 10.1 X10*3/uL (4.8-10.8)
[2024-11-26 12:35] LABS: Anion Gap 17 (12-20); Blood Urea Nitrogen 37 mg/dL (9-16); Calcium 9.4 mg/dL (8.4-10.2); Carbon Dioxide 15 mmol/L (22-29); Chloride 107 mmol/L (96-108); Creatinine Clr Calc Pharmacy 42.8; Estimated Glomerular Filt Rate 42; Glucose Random 327 mg/dL (60-115); Sodium 135 mmol/L (135-145)
[2024-11-26 13:37] VITALS: BP 117/64; PULSE 86; RESP 18; TEMP 36.8; O2SAT 95
--- NOTE | 2024-11-26 13:56 | PC.NURSE ---
upon initial imaging, provider at bedside to view image. shoulder placed back into place by providers s/p imaging. patient reports relief immediately following. sling applied s/p second xray of shoulder. patient continues to state no pain w/out movement and that with movement the pain is minimal. order placed for PT/CM, patient aware. call pruitt within reach.
--- NOTE | 2024-11-26 14:12 | MHC.CM.ED ---
Received case management consult from Dr Scott. Patient came to the ER after a fall. Found to have a dislocated shoulder that was reduced in the ER. Physical therapy eval ordered and pending. Met with patient in regards to discharge planning. Patient is a that is service connected. He has been to [facility] in the past. He's unsure if he wants to return there. Agreeable to referral being broadcasted locally to determine what beds would be available. Patient aware auth from the [place] will need to be obtained and patient will most likely be here until Thursday. Patient aware. Dr Scott aware. Continue to monitor for d/c needs.
[2024-11-26 14:29] VITALS: BP 108/57; PULSE 62; RESP 20; TEMP 36.8; O2SAT 99
[2024-11-26 15:33] VITALS: BP 108/57; PULSE 62; O2SAT 99
[2024-11-26 17:00] LABS: Influenza A PCR NEGATIVE (Negative); Influenza B PCR NEGATIVE (Negative); Resp Syncy Virus RNA Qual PCR NEGATIVE (Negative); SARS COV2 PCR INHOUSE NEGATIVE (Negative)
--- NOTE | 2024-11-26 19:35 | PHA.MEDREC ---
Addendum entered by Aaron Chne RPh 11/26/24 21:16: med rec checked by [facility] Original Note: Pharmacy Consult ? Medication Reconciliation Pharmacy has completed the medication reconciliation. Patient does not know what he takes. He says a [facility] comes once a week to fill his pill box with his [facility] meds. Used list from [facility] to confirm meds. He said he took morning medications today. He reports 40 units of insulin daily.
[2024-11-26 20:38] VITALS: BP 151/79; PULSE 92; RESP 16; TEMP 36.9; O2SAT 93
[2024-11-26 20:45] LABS: Glucose, Whole Blood 295 mg/dL (60-115)
[2024-11-26] MEDS: Furosemide 40 MG TABLET PO (20:48)
[2024-11-26] MEDS: Insulin Lispro 100 UNIT/ML 3 ML VIAL SUBCUT (20:49)
--- NOTE | 2024-11-26 22:11 | PC.NURSE ---
pt medicated per mar, tolerated well with water.
[2024-11-27 06:00] VITALS: BP 139/68; PULSE 81; RESP 16; TEMP 36.6; O2SAT 92
[2024-11-27 07:03] LABS: Glucose, Whole Blood 182 mg/dL (60-115)
[2024-11-27] MEDS: Insulin Lispro 100 UNIT/ML 3 ML VIAL SUBCUT ×3 (07:20→21:29)
[2024-11-27 08:07] VITALS: BP 139/68
[2024-11-27] MEDS: amLODIPine Besylate 10 MG TABLET PO (08:07)
[2024-11-27] MEDS: Furosemide 40 MG TABLET PO (08:07)
[2024-11-27] MEDS: Losartan Potassium 50 MG TABLET 100 MG PO (08:07)
[2024-11-27] MEDS: Clopidogrel Bisulfate 75 MG TABLET PO (08:08)
[2024-11-27] MEDS: Insulin Glargine,Hum.rec.anlog 100 UNIT/ML 10 ML VIAL 40 UNIT SUBCUT (08:08)
--- NOTE | 2024-11-27 10:35 | MHC.CM.ED ---
Patient remains in ER. Physical therapy eval completed last night. STR is recommended. [facility] can potentially offer beds. These options were discussed with patient. [facility] is 1st choice. [facility]. Continue to monitor for d/c needs.
--- NOTE | 2024-11-27 10:41 | PC.NURSE ---
Pt resting quietly in room; vss; denies need for pain meds for L shoulder at this time; awaiting placement in rehab
--- NOTE | 2024-11-27 11:13 | PC.NURSE ---
Pt incont. of urine x1; changed and placed in a hospital bed by RINA Cordoba
[2024-11-27 13:27] LABS: Glucose, Whole Blood 188 mg/dL (60-115)
[2024-11-27 14:18] VITALS: BP 142/77; PULSE 84; RESP 19; TEMP 36.6; O2SAT 97
[2024-11-27 18:23] LABS: Glucose, Whole Blood 222 mg/dL (60-115)
[2024-11-27 20:23] VITALS: BP 141/69; PULSE 85; RESP 18; TEMP 36.6; O2SAT 94
--- NOTE | 2024-11-27 20:24 | MHC.EDTECH ---
This tech took over care of pt at 1900,rounded and introduced self to pt, patient got up to the commode with a 1 assist, patient had a moderate amount of soft formed brown stool, pt urinated a small amount, ward-care given and pt is back in bed,vitals taken ,call pruitt in reach
--- NOTE | 2024-11-27 21:11 | MHC.EDTECH ---
POC taken and is 356 RN aware
[2024-11-27 21:17] LABS: Glucose, Whole Blood 356 mg/dL (60-115)
[2024-11-28 01:54] VITALS: BP 132/71; PULSE 85; RESP 18; TEMP 36.8; O2SAT 95
--- NOTE | 2024-11-28 01:56 | MHC.EDTECH ---
Rounds and vitals completed, patient urinated 300MLS in urinal, belongings list completed, patient has 210.00 Ocampo in wallet in pants, pt refused safe, belonging bag in the bed with pt,
[2024-11-28 06:00] VITALS: BP 127/76; PULSE 81; RESP 16; TEMP 36.6; O2SAT 95
--- NOTE | 2024-11-28 06:06 | MHC.EDTECH ---
Rounds and vitals completed, emptied 300MLS from urinal,call pruitt in reach
--- NOTE | 2024-11-28 07:23 | PC.NURSE ---
pt noted to have foul smelling urine in urinal. urine specimen obtained/sent to lab.
[2024-11-28 07:28] LABS: Appearance Urine Clear; Color Urine Yellow; Glucose Urine UA Negative (Negative); Leukocyte Esterase Urine Negative (Negative); Nitrite Urine Negative (Negative); PH 6.5 (5.0-9.0); UMIC TRIGGER UACC YES; Urine Blood Negative (Negative); Urine Ketones Negative (Negative); Urine Protein 100 (2+) mg/dL (Neg-Trace)
[2024-11-28 07:30] LABS: Bacteria Urine 4+ (None Seen); Hyaline Casts Urine 0-2 /LPF (0-2); RBC Urine 0-2 /HPF (0-2); Squamous Epithelial Cell Urine 0-2 /HPF (0-2); WBC Urine 0-5 /HPF (0-5)
[2024-11-28 07:39] LABS: Glucose, Whole Blood 138 mg/dL (60-115)
--- NOTE | 2024-11-28 08:52 | PC.NURSE ---
Dominic (Ambrose - son in law) [phone]
--- NOTE | 2024-11-28 09:51 | MHC.CM.ED ---
Addendum entered by Bhavana Chappell 11/28/24 10:04: [facility] is able to offer a bed once insurance auth has been obtained by the [place]. Original Note: Patient remains in ER. Waiting to verify if [facility] is able to offer a bed. Clinical info faxed to the [place] for insurance auth to [phone]. Continue to monitor for d/c needs.
[2024-11-28] MEDS: Furosemide 40 MG TABLET PO (10:29)
[2024-11-28] MEDS: Clopidogrel Bisulfate 75 MG TABLET PO (10:29)
[2024-11-28] MEDS: amLODIPine Besylate 10 MG TABLET PO (10:29)
[2024-11-28] MEDS: Insulin Glargine,Hum.rec.anlog 100 UNIT/ML 10 ML VIAL 40 UNIT SUBCUT (10:29)
[2024-11-28] MEDS: Losartan Potassium 50 MG TABLET 100 MG PO (10:29)
--- NOTE | 2024-11-28 13:15 | PC.NURSE ---
1:1 assist needed OOB to the commode. pt had a solid/formed BM in commode. bed change completed to promote comfort - new padding placed. pt turned/repositioned to comfort. pt remains on RA w/o difficulty. no sob/wob noted. respirations even/unlabored. plan of care ongoing.
[2024-11-28 13:41] LABS: Glucose, Whole Blood 194 mg/dL (60-115)
[2024-11-28] MEDS: Insulin Lispro 100 UNIT/ML 3 ML VIAL SUBCUT ×2 (13:47→19:17)
[2024-11-28 14:43] VITALS: BP 124/62; PULSE 77; RESP 16; TEMP 36.5; O2SAT 96
--- NOTE | 2024-11-28 17:34 | PC.NURSE ---
pt becoming increasingly agitated/difficult to redirect. pt taking off sling/refusing to place it back on. pt attempting to get out bed w/o assistance and is a fall risk. pt agreeable to ambulate with this RN. 1:1 assist OOB/using walker for assistive device. poor judgment d/t decreased vision in right eye. 1:1 assist needed w/ walker d/t pt bumping into inanimate objects. pt assisted back into bed. turned/repositioned. bed alarm turned on for safety precautions. calm/cooperative. call pruitt placed within reach.
[2024-11-28 18:12] VITALS: BP 106/66; PULSE 91; RESP 16; TEMP 36.5; O2SAT 95
[2024-11-28 18:57] LABS: Glucose, Whole Blood 226 mg/dL (60-115)
[2024-11-28 23:23] VITALS: BP 122/67; PULSE 81; RESP 18; TEMP 36.8; O2SAT 95
[2024-11-29 07:37] VITALS: PULSE 80; RESP 20; TEMP 36.9; O2SAT 93
[2024-11-29 07:48] LABS: Glucose, Whole Blood 155 mg/dL (60-115)
--- NOTE | 2024-11-29 09:24 | MHC.CM.ED ---
Patient remains in ER. [facility] She is working on auth now. Continue to monitor for d/c needs.
[2024-11-29] MEDS: Clopidogrel Bisulfate 75 MG TABLET PO (10:13)
[2024-11-29 10:14] VITALS: BP 121/61
[2024-11-29] MEDS: Insulin Glargine,Hum.rec.anlog 100 UNIT/ML 10 ML VIAL 40 UNIT SUBCUT (10:14)
[2024-11-29] MEDS: Furosemide 40 MG TABLET PO (10:14)
[2024-11-29 10:17] VITALS: BP 121/61
[2024-11-29] MEDS: Losartan Potassium 50 MG TABLET 100 MG PO (10:17)
[2024-11-29] MEDS: amLODIPine Besylate 10 MG TABLET PO (10:17)
[2024-11-29 10:20] LABS: Glucose, Whole Blood 317 mg/dL (60-115)
--- NOTE | 2024-11-29 12:32 | MHC.CM.ED ---
Addendum entered by Bhavana Chappell 11/29/24 16:29: Received notification from Becca at [facility] there is an issue with B[facility] the [facility]. Anticipate patient will d/c tomorrow. Patient, Any ROSSI and Aida LYNCH aware. Attempted to let Katlin know. Left voicemail with d/c update. Original Note: Insurance auth has been obtained by [place]. Alert BLS booked for 130pm. Patient, Any ROSSI and Aida LYNCH aware. Attempted to notify friend, Katlin, via telephone at [phone]. Left voicemail with discharge info and CM contact info. Continue to monitor for d/c needs.
[2024-11-29 12:34] VITALS: BP 115/57; PULSE 79; RESP 20; TEMP 36.6; O2SAT 94
--- NOTE | 2024-11-29 12:40 | PC.NURSE ---
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
--- NOTE | 2024-11-29 13:01 | PC.NURSE ---
report given to Pilo Fong at [facility]
--- NOTE | 2024-11-29 16:19 | PC.NURSE ---
change of plan pt is spending the night in the ED do to transport complications
[2024-11-29 17:29] VITALS: BP 126/60; PULSE 76; RESP 20; TEMP 36.8; O2SAT 96
[2024-11-29 20:28] LABS: Glucose, Whole Blood 251 mg/dL (60-115)
[2024-11-30 01:20] VITALS: BP 141/80; PULSE 79; RESP 18; TEMP 36.9; O2SAT 95
[2024-11-30 06:00] VITALS: BP 131/78; PULSE 78; RESP 20; TEMP 37; O2SAT 97
[2024-11-30 07:32] LABS: Glucose, Whole Blood 124 mg/dL (60-115)
[2024-11-30 08:37] VITALS: BP 131/69; PULSE 82; RESP 18; TEMP 36.6; O2SAT 96
[2024-11-30 08:46] VITALS: BP 131/69
[2024-11-30] MEDS: Losartan Potassium 50 MG TABLET 100 MG PO (08:46)
[2024-11-30] MEDS: Clopidogrel Bisulfate 75 MG TABLET PO (08:46)
[2024-11-30] MEDS: amLODIPine Besylate 10 MG TABLET PO (08:46)
[2024-11-30] MEDS: Furosemide 40 MG TABLET PO (08:46)
[2024-11-30 08:55] LABS: Glucose, Whole Blood 254 mg/dL (60-115)
[2024-11-30] MEDS: Insulin Glargine,Hum.rec.anlog 100 UNIT/ML 10 ML VIAL 40 UNIT SUBCUT (08:58)
--- NOTE | 2024-11-30 11:26 | MHC.CM.ED ---
Patient remains in ER. Received notification that patient no longer wants to go to [facility]. Wants to d/c home. Patient's family bedside visiting. Met with patient and family. Patient feels he can safely go home. Family requesting CM to speak to his sig other, Mariann. Spoke with Mariann, via telephone at [phone]. Mariann aware patient will d/c home and that family will transport him home. Heather from [place] made aware. Per Heather, patient is active with [facility] in [place]. T/W spoke with [facility]. Patient is active with their agency. ER d/c info faxed to [phone]. Patient, family, Trudi ROSSI and Claudia LYNCH aware. Continue to monitor for d/c needs.
[2024-11-30 11:30] LABS: Glucose, Whole Blood 231 mg/dL (60-115)
[2024-11-30 11:41] VITALS: BP 131/69; PULSE 70; RESP 16; TEMP 36.4; O2SAT 95
== END 2024-11-30 11:42 | disposition home or self-care (01) ==
PROVIDERS: Emergency Medicine; Emergency Provider Internal Medicine; PCP Physician Assistant
DX: S42.142A Displaced fracture of glenoid cavity of scapula, left shoulder, initial encounter for closed fracture (principal); W00.0XXA Fall on same level due to ice and snow, initial encounter; M25.512 Pain in left shoulder; R60.0 Localized edema; E86.0 Dehydration; E11.9 Type 2 diabetes mellitus without complications; I50.9 Heart failure, unspecified; Z95.1 Presence of aortocoronary bypass graft; Y93.01 Activity, walking, marching and hiking; Y92.480 Sidewalk as the place of occurrence of the external cause; Y99.9 Unspecified external cause status; Z03.818 Encounter for observation for suspected exposure to other biological agents ruled out; Z79.4 Long term (current) use of insulin; Z79.899 Other long term (current) drug therapy
CPT/HCPCS: 0241U; 23575; 36415; 73030; 73200; 80048; 81001; 82947; 85025; 96365; 96366; 96375; 97162; 99285; J0131; J1171

== ENCOUNTER → 2024-11-26 11:51 | Outpatient (BNV) | payer OTHER, SELFPAY | PROVIDERS: Emergency Provider Emergency Medicine; PCP Physician Assistant; Visit Provider Nuclear Medicine | DX: S43.005A Unspecified dislocation of left shoulder joint, initial encounter (principal); M75.31 Calcific tendinitis of right shoulder; M19.011 Primary osteoarthritis, right shoulder | CPT/HCPCS: 73030; 73200 ==

== ENCOUNTER 2024-12-15 08:07 | Inpatient (IN) | payer OTHER, SELFPAY ==
[2024-12-15] VITALS (13 sets, daily range): BP systolic 112–143; BP diastolic 47–80; PULSE 80–100; RESP 16–25; TEMP 36.8–37.1; O2SAT 88–97; BMI 33.5
--- NOTE | ~2024-12-15 | XR_ITS ---
EXAMINATION: XR CHEST CLINICAL INFORMATION: cough, dyspnea COMPARISON: July 04, 2024. TECHNIQUE: Frontal view of the chest was obtained. FINDINGS: Pulmonary reticular pattern. No consolidation, pleural effusion or pneumothorax. Sternal wires. Cardiomediastinal silhouette size is normal. Calcified plaque thoracic aorta. Multilevel thoracic spondylosis. XR/XR chest 1V IMPRESSION: No acute airspace disease. Stable chest. Electronically signed by: Jovanny Horton MD 12/15/2024 09:15 AM EDT
--- NOTE | 2024-12-15 08:18 | ECG_ITS ---
Test Reason : dyspnea Blood Pressure : */* mmHG Vent. Rate : 86 BPM Atrial Rate : 86 BPM P-R Int : 204 ms QRS Dur : 98 ms QT Int : 396 ms P-R-T Axes : 86 -46 76 degrees QTcB Int : 473 ms Normal sinus rhythm Left axis deviation Anteroseptal infarct (cited on or before 02-Jul-2024) Abnormal ECG When compared with ECG of 06-Aug-2024 10:01, Criteria for Inferior infarct are no longer Present Referred By: Ledy Lopez Electronically Signed By: Reinier Zaldivar
--- NOTE | 2024-12-15 08:19 | ED_ITS ---
HPI - SOB/Dyspnea General Chief Complaint: Dyspnea Stated Complaint: SOB,COUGH X 5 DAYS,96% 2 L PER EMS Source: patient, EMS and old records reviewed Mode of arrival: EMS Limitations: other (poor historian) History of Present Illness ED Provider: CIELO LEDEZMA Narrative: 84 yo male with PMH of DM, CAD s/p CABG, hard of hearing, BPH, HTN, afib on amiodarone, CHF EF 50-55% who reports shortness of breath, dry hacking cough, EMS found him to be 92% and placed him on 2L NC. He denies fevers, sputum, n/v/d, chest pain. I asked if he can lay flat he said no. I asked him about the size of his legs and he isn't sure if they are normally this swollen. He denies sick contacts. He takes his medications as prescribed. MD elicited complaint: shortness of breath and cough Pertinent past history: congestive heart failure and diabetes Onset (ago): day(s) (5) Context: other Timing: progressively worsening Severity: moderate Exacerbating factors: lying flat, exertion and coughing Relieving factors: rest and upright position Known history of: congestive heart failure Associated symptoms: cough Treatment prior to arrival: oxygen Related Data Home Medications ?Medication ?Instructions ?Recorded ?Confirmed amlodipine 10 mg tablet 10 mg PO DAILY 07/04/24 11/26/24 clopidogrel 75 mg tablet 75 mg PO DAILY 07/04/24 11/26/24 furosemide 40 mg tablet 40 mg PO DAILY 07/04/24 11/26/24 insulin glargine-yfgn 100 unit/mL 40 unit subcut DAILY 07/04/24 11/26/24 (3 mL) subcutaneous pen losartan 100 mg tablet 100 mg PO DAILY 07/04/24 11/26/24 sennosides 8.6 mg tablet (senna) 8.6 mg PO DAILY PRN Constipation 07/04/24 11/26/24 Allergies Allergy/AdvReac Type Severity Reaction Status Date / Time hydrochlorothiazide Allergy Unknown Unknown Verified 12/15/24 08:19 No Known Drug Allergies Allergy Unknown NONE Verified 12/15/24 08:19 Review of Systems 2 Review of Systems: Constitutional : No Fever, No Chills ENT/Mouth : No sore throat, No Rhinorrhea, No Swallowing Difficulty Eyes: No Eye Pain, No Swelling, No Redness Cardiovascular : No Chest Pain, positive SOB, pos Orthopnea, positive Edema Respiratory : pos Cough, No Sputum, No Wheezing, positive dyspnea Gastrointestinal : No Nausea, No Vomiting, No Diarrhea, No abdominal Pain, No Hematochezia, No Melena Genitourinary : No Dysuria, No Urinary Frequency, No Hematuria Musculoskeletal : No joint pain, No Myalgias Skin : No Skin Lesions, No rash Neuro : No Weakness, No Numbness, No Dizziness, No Headache All other systems reviewed and are negative [facility] Past Medical History Medical History Congestive heart failure Type 2 diabetes mellitus Coronary artery disease Surgical History Hx of CABG Social History Social History Household Members: Unknown / Unable to assess Housing: Unknown / Unable to assess Patient Tobacco Use Status: Tobacco use Unknown Advance Directives: Yes Advance Directives on File: Yes Advance Directives Date on File: 07/07/24 Physical Exam 2 Vital Signs: Vital Signs: Last Vital Signs Temp 98.2 F 12/15/24 08:15 Pulse 80 12/15/24 09:44 Resp 18 12/15/24 10:15 BP 112/47 L 12/15/24 09:44 Pulse Ox 95 12/15/24 10:15 O2 Del Method Nasal Cannula 12/15/24 10:15 O2 Flow Rate 1 12/15/24 10:15 Oxygen Flow Rate 2 12/15/24 08:15 BMI result Body Mass Index 33.5 Appearance: Alert. Oriented X3. No acute distress. Very hard of hearing Eyes: Pupils equal, round and reactive to light. ENT: Pharynx normal. Neck: Normal inspection. Neck supple. CVS: Normal heart rate and rhythm. Pulses normal. Respiratory: No respiratory distress. Breath sounds upper lobe wheezes faint exp and crackles in both bases Abdomen: Soft and nontender. Skin: Skin warm and dry. Normal skin color. Normal skin turgor. Extremities: 2+ symmetric pitting lower extremity edema. No calf ttp Neuro: Oriented X 3. No motor deficit. No sensory deficit. CN2-12 intact Medications Administered Discontinued Medications Generic Name Dose Route Start Last Admin Trade Name Freq PRN Reason Stop Dose Admin Albuterol Sulfate 2.5 mg/ 5 mg 12/15/24 09:12 12/15/24 09:17 Albuterol Sulfate 2.5 mg INHALE 12/15/24 09:13 5 mg ONCE ONE Administration Benzonatate 100 mg 12/15/24 09:44 12/15/24 10:01 Benzonatate 100 Mg Capsule PO 12/15/24 09:45 100 mg ONCE ONE Administration Furosemide 20 mg 12/15/24 08:28 12/15/24 09:04 Furosemide 20 Mg/2 Ml Vial IVPUSH 12/15/24 08:29 20 mg ONCE ONE Administration Protocol Methylprednisolone Sodium Succinate 60 mg 12/15/24 09:26 12/15/24 09:42 Methylprednisolone Sod Succ 125 Mg/2 Ml Vial IVPUSH 12/15/24 09:27 60 mg ONCE ONE Administration Medical Decision Making Medical Decision Making [facility] Narrative: 84 yo male with PMH of DM, CAD s/p CABG, hard of hearing, BPH, HTN, afib on amiodarone, CHF EF 50-55% here with c/o dyspnea, leg edema and dry cough he denies infectious symptoms he has 2+ pitting edema on his legs. He has no chest pain at this time I suspect CHF exacerbation - will obtain EKG, labs, start on IV lasix, viral panel ordered. Doubt ACS given lack of chest pain, dry cough and leg swelling symmetric suspect CHF vs VTE. Differential Diagnosis Differential Diagnoses: The differential diagnosis associated with the presentation includes CHF, viral syndrome Admission/Observation Consideration of admission/observation: Escalation of care including admission/observation considered admit for IV diuresis hypoxia 88% Consult Healthcare Provider Management of the patient was discussed with: Hospitalist (will admit) Lab Data [facility] Lab Attestation statement: I reviewed the patient's lab results. 12/15/24 08:39 12/15/24 08:39 Labs: Lab Results 12/15/24 Range/Units 08:39 WBC 9.5 (4.8-10.8) X10*3/uL RBC 5.18 (4.60-5.80) X10*6/uL Hgb 13.9 L (14.0-18.0) g/dl Hct 41.5 L (42.0-52.0) % MCV 80.1 (80.0-98.0) fL MCH 26.8 L (27.0-33.0) pg MCHC 33.5 (31.0-36.0) g/dl RDW 13.6 (11.0-16.0) % Plt Count 228 (160-400) X10*3/uL MPV 10.3 (9.4-12.4) fL Immature Gran % (Auto) 0.4 (0.0-0.4) % Neut % (Auto) 63.6 (45-73) % Lymph % (Auto) 19.3 L (20-40) % [place] % (Auto) 9.7 (2-11) % Eos % (Auto) 6.1 H (0-4) % Baso % (Auto) 0.9 (0-2) % Lymph # (Auto) 1.8 (1.2-4.9) X10*3/uL [place] # (Auto) 0.9 (0.1-1.2) X10*3/uL Eos # (Auto) 0.6 H (0.0-0.4) X10*3/uL Baso # (Auto) 0.1 (0.0-0.2) X10*3/uL Abs Immat Gran (auto) 0.04 H (0.00-0.03) X10*3/uL Absolute Neuts (auto) 6.0 (2.0-8.3) x10*3/uL Absolute Nucleated RBC 0.000 (0.0-0.012) X10*3/uL Nucleated RBC % (auto) 0.0 (0.0-0.2) /100WBC Sodium 137 (135-145) mmol/L Potassium 4.3 (3.3-5.1) mmol/L Chloride 108 (96-108) mmol/L Carbon Dioxide 21 L (22-29) mmol/L Anion Gap 12 (12-20) BUN 29 H (9-16) mg/dL Creatinine 1.40 (0.5-1.4) mg/dL Estim Creat Clear Calc 47.2 Estimated GFR 48 Random Glucose 166 H (60-115) mg/dL Calcium 9.0 (8.4-10.2) mg/dL Magnesium 2.0 (1.6-2.6) mg/dL Total Bilirubin 0.6 (0.0-1.0) mg/dL Direct Bilirubin 0.2 (0.0-0.5) mg/dL AST 22 (5-37) U/L ALT 19 (0-40) U/L Alkaline Phosphatase 100 (39-117) U/L Troponin I High Sens 23.7 D (<3.5-35.0) ng/L C-Reactive Protein 0.25 (< or = 0.50) mg/dL B-Natriuretic Peptide 106 H (<100) pg/mL Total Protein 7.5 (6.5-8.0) g/dL Albumin 3.9 (3.5-5.0) g/dL Lipase 15 (8-78) U/L Procalcitonin 0.04 ng/mL Influenza Type A (PCR) NEGATIVE (Negative) Influenza Type B (PCR) NEGATIVE (Negative) RSV RNA Qual (PCR) NEGATIVE (Negative) SARS-CoV-2 RNA (RT-PCR) NEGATIVE (Negative) Independent Interpretation I performed an independent interpretation of an: EKG and Plain X-Ray (no pneumonia) Interpretation: Rate: 86 Rhythm: NSR [place]: left Normal P waves. Normal SOPHIA. Normal QRS complex. ST T wave : flat t waves anterior leads, NO ASH qTC: 473 prior studies: no acute ischemia The study has been interpreted contemporaneously by me. . Radiology Impression Discussion of test interpretation with radiology: I have reviewed the radiologist's reading. Independent Historian Clinical information obtained from an independent historian. History obtained from or confirmed by: EMS External Record Review External record reviewed: Inpatient record and Outpatient record Discharge Plan Discharge Clinical Impression: Congestive heart failure, Hypoxia Patient Disposition: Admitted As Inpatient Prescriptions: No Action furosemide 40 mg Tablet 40 mg PO DAILY sennosides [senna] 8.6 mg Tablet 8.6 mg PO DAILY PRN (Reason: Constipation) clopidogrel 75 mg Tablet 75 mg PO DAILY amlodipine 10 mg Tablet 10 mg PO DAILY losartan 100 mg Tablet 100 mg PO DAILY insulin glargine-yfgn 100 unit/mL (3 mL) Insulin Pen 40 unit SUBCUT DAILY Print Language: Uzbek
[2024-12-15 08:43] LABS: MANUAL DIFF FLAG NO
[2024-12-15 08:57] LABS: Basophils Absolute Auto 0.1 X10*3/uL (0.0-0.2); Basophils Percent Auto 0.9 % (0-2); Eosinophils Absolute Auto 0.6 X10*3/uL (0.0-0.4); Eosinophils Percent Auto 6.1 % (0-4); Hematocrit 41.5 % (42.0-52.0); Hemoglobin 13.9 g/dl (14.0-18.0); Imm Gran Abs Auto 0.04 X10*3/uL (0.00-0.03); Imm Gran Pct Auto 0.4 % (0.0-0.4); Lymphocytes Absolute Auto 1.8 X10*3/uL (1.2-4.9); Lymphocytes Percent Auto 19.3 % (20-40); Mean Corpuscular HGB Conc 33.5 g/dl (31.0-36.0); Mean Corpuscular Hemoglobin 26.8 pg (27.0-33.0); Mean Corpuscular Volume 80.1 fL (80.0-98.0); Mean Platelet Volume 10.3 fL (9.4-12.4); Monocytes Absolute Auto 0.9 X10*3/uL (0.1-1.2); Monocytes Percent Auto 9.7 % (2-11); Neutrophils Percent Auto 63.6 % (45-73); Platelet Count 228 X10*3/uL (160-400); Red Blood Count 5.18 X10*6/uL (4.60-5.80); Red Cell Distribution Width 13.6 % (11.0-16.0); White Blood Count 9.5 X10*3/uL (4.8-10.8)
[2024-12-15] MEDS: Furosemide 20 MG/2 ML VIAL IVPUSH ×2 (09:04→17:14)
[2024-12-15 09:13] LABS: B Type Natriuretic Peptide 106 pg/mL (<100)
[2024-12-15 09:14] LABS: Troponin-I High Sensitivity 23.7 ng/L (<3.5-35.0)
[2024-12-15 09:15] LABS: Alanine Aminotransferase 19 U/L (0-40); Albumin Level 3.9 g/dL (3.5-5.0); Alkaline Phosphatase 100 U/L (39-117); Anion Gap 12 (12-20); Aspartate Amino Transferase 22 U/L (5-37); Bilirubin Direct 0.2 mg/dL (0.0-0.5); Bilirubin Total 0.6 mg/dL (0.0-1.0); Blood Urea Nitrogen 29 mg/dL (9-16); C Reactive Protein 0.25 mg/dL (< or = 0.50); Carbon Dioxide 21 mmol/L (22-29); Chloride 108 mmol/L (96-108); Creatinine Clr Calc Pharmacy 47.2; Estimated Glomerular Filt Rate 48; Glucose Random 166 mg/dL (60-115); Lipase 15 U/L (8-78); Potassium 4.3 mmol/L (3.3-5.1); Sodium 137 mmol/L (135-145); Total Protein 7.5 g/dL (6.5-8.0)
[2024-12-15] MEDS: Albuterol Sulfate 2.5 MG, Albuterol Sulfate (0.083%) 2.5 MG 5 MG INHALE (09:17)
[2024-12-15 09:21] LABS: Influenza A PCR NEGATIVE (Negative); Influenza B PCR NEGATIVE (Negative); Resp Syncy Virus RNA Qual PCR NEGATIVE (Negative); SARS COV2 PCR INHOUSE NEGATIVE (Negative)
[2024-12-15 09:27] LABS: Procalcitonin 0.04 ng/mL
[2024-12-15] MEDS: methylPREDNISolone Sod Succ 125 MG/2 ML VIAL 60 MG IVPUSH (09:42)
--- NOTE | 2024-12-15 10:00 | PC.NURSE ---
Biba from home for SOB/Cough x5 days. Per EMS, pt was 92% on RA, placed on 2L NC and maintaining O2 sats mid-high 90s. A/ox3, respirations even and unlabored, increased sob/wob, crackles/rales heard in bilat bases, wheezing heard upper lobes bilaterally, per pt he does not wear O2 at baseline. Denies recent fevers/sick contacts, denies hx of COPD/CHF. Plan for labs. cxr, ekg, pt updated on plan of care. Call pruitt within reach, all needs met at this time.
[2024-12-15] MEDS: Benzonatate 100 MG CAPSULE PO (10:01)
--- NOTE | 2024-12-15 10:35 | PC.NURSE ---
Pt O2 titrated to RA, maintaining O2 sats mid 90s. While pt was resting, desat to 88% on RA. MD made aware, pt placed on 1L NC O2 with good effect, maintaining O2 sats high 90s.
[2024-12-15 11:17] LABS: Adenovirus PCR Not Detected (Not Detect.); Bordetella parapertussis PCR Not Detected (Not Detect.); Bordetella pertussis PCR Not Detected (Not Detect.); Chlamydia pneumoniae PCR Not Detected (Not Detect.); Coronavirus 229E PCR Not Detected (Not Detect.); Coronavirus HKU1 PCR Not Detected (Not Detect.); Coronavirus NL63 PCR Not Detected (Not Detect.); Coronavirus OC43 PCR Not Detected (Not Detect.); Human metapneumovirus PCR Not Detected (Not Detect.); Influenza A PCR Not Detected (Not Detect.); Influenza B PCR Not Detected (Not Detect.); Mycoplasma pneumoniae PCR Not Detected (Not Detect.); Parainfluenza 1 PCR Not Detected (Not Detect.); Parainfluenza 2 PCR Not Detected (Not Detect.); Parainfluenza 3 PCR Not Detected (Not Detect.); Parainfluenza 4 PCR Not Detected (Not Detect.); RSV PCR Not Detected (Not Detect.); Rhino/Enterovirus PCR Detected (Not Detect.); SARS-CoV-2 PCR Not Detected (Not Detect.)
--- NOTE | 2024-12-15 11:20 | P.HPHOSP_ITS ---
History of Present Illness Date of Service: 12/15/24 Attending physician on admission: Dax Milan Chief Complaint: SOB Pt is an 84-year-old female with a PMH significant for HFpEF, HTN, CAD s/p CABG 2020, and insulin-dependent type 2 diabetes?who presents to the ED with?fever, chills, SOB, and cough for the past few days, significantly worsened last night and this morning. Cough has been nonproductive. Denies sick contacts. Overall pt is a vague historian, reports increased lower leg edema though unsure for how long, possibly 3-4 weeks. Pt denies any significant respiratory conditions, though he thinks that he has a ?little bit? of COPD. Not on home inhalers. No chest pain/pressure, palpitations. Denies nausea, vomiting, abdominal pain. No changes to bowel or bladder habits. Reports compliance with home medications. In the ED pt was tachypneic up to 25 and hypoxic as low as 88% on RA. Labs were significant for mildly elevated BNP of 106 and testing positive for rhino virus. No leukocytosis. Stable H&H. No significant electrolyte abnormalities. Renal function WNL. Hepatic function WNL. Troponin WNL. Procalcitonin negative at 0.04. CXR showed no acute airspace disease. EKG demonstrated normal sinus rhythm without evidence of ST elevations or depressions. Pt was treated with furosemide, DuoNebs, Solu-Medrol and benzonatate. Pt will be admitted to the hospital for treatment and further evaluation of acute hypoxic respiratory failure in the setting of rhino virus and CHF exacerbation. Review of Systems 2 Review of Systems: Negative except for that which is stated in the [facility] Medical History Congestive heart failure Type 2 diabetes mellitus Coronary artery disease Surgical History Hx of CABG Social History Household Members: Unknown / Unable to assess Housing: Unknown / Unable to assess Patient Tobacco Use Status: Tobacco use Unknown Advance Directives: Yes Advance Directives on File: Yes Advance Directives Date on File: 07/07/24 Meds Allergies Allergy/AdvReac Type Severity Reaction Status Date / Time hydrochlorothiazide Allergy Unknown Unknown Verified 12/15/24 08:19 No Known Drug Allergies Allergy Unknown NONE Verified 12/15/24 08:19 Home Medications ?Medication ?Instructions ?Recorded ?Confirmed ?Last Taken ?Type amlodipine 10 mg tablet 10 mg PO DAILY 07/04/24 11/26/24 08/05/24 History clopidogrel 75 mg tablet 75 mg PO DAILY 07/04/24 11/26/24 08/05/24 History furosemide 40 mg tablet 40 mg PO DAILY 07/04/24 11/26/24 08/05/24 History insulin glargine-yfgn 100 unit/mL 40 unit subcut DAILY 07/04/24 11/26/24 08/05/24 History (3 mL) subcutaneous pen losartan 100 mg tablet 100 mg PO DAILY 07/04/24 11/26/24 08/05/24 History sennosides 8.6 mg tablet (senna) 8.6 mg PO DAILY PRN Constipation 07/04/24 11/26/24 08/05/24 History Physical Exam 2 Vital Signs and Narrative: Vital Signs: Last Vital Signs Temp 98.2 F 12/15/24 08:15 Pulse 80 12/15/24 09:44 Resp 18 12/15/24 10:15 BP 112/47 L 12/15/24 09:44 Pulse Ox 95 12/15/24 10:15 O2 Del Method Nasal Cannula 12/15/24 10:15 O2 Flow Rate 1 12/15/24 10:15 Oxygen Flow Rate 2 12/15/24 08:15 BMI result Body Mass Index 33.5 General: AOx3, no acute distress Resp: Diffuse bilateral wheezing. Rales in lower lobes bilaterally CVS: S1, S2, RRR GI: +BS, NT, no distention Skin: Warm, dry Neuro: Cranial nerves II-XII grossly intact bilaterally. Motor grossly intact bilaterally Extremities: 2+ bilateral pitting edema Psych: Appropriate affect Results Labs 12/15/24 08:39 12/15/24 08:39 Labs: Laboratory Results - last 24 hr 12/15/24 08:39 MCV 80.1 MCH 26.8 L MCHC 33.5 RDW 13.6 Plt Count 228 MPV 10.3 Immature Gran % (Auto) 0.4 Neut % (Auto) 63.6 Lymph % (Auto) 19.3 L [place] % (Auto) 9.7 Eos % (Auto) 6.1 H Baso % (Auto) 0.9 Lymph # (Auto) 1.8 [place] # (Auto) 0.9 Eos # (Auto) 0.6 H Baso # (Auto) 0.1 Abs Immat Gran (auto) 0.04 H Absolute Neuts (auto) 6.0 Absolute Nucleated RBC 0.000 Nucleated RBC % (auto) 0.0 Anion Gap 12 Estim Creat Clear Calc 47.2 Estimated GFR 48 Random Glucose 166 H Calcium 9.0 Magnesium 2.0 Total Bilirubin 0.6 Direct Bilirubin 0.2 AST 22 ALT 19 Alkaline Phosphatase 100 C-Reactive Protein 0.25 B-Natriuretic Peptide 106 H Total Protein 7.5 Albumin 3.9 Lipase 15 Procalcitonin 0.04 Influenza Type A (PCR) NEGATIVE Influenza Type B (PCR) NEGATIVE RSV RNA Qual (PCR) NEGATIVE SARS-CoV-2 RNA (RT-PCR) NEGATIVE Imaging Radiologist's Impressions: Impressions Chest X-Ray 12/15/24 08:19 IMPRESSION: No acute airspace disease. Stable chest. Electronically signed by: Jovanny Horton MD 12/15/2024 09:15 AM EDT RP Assessment and Plan (1) Hypoxia: Status: Acute (2) CHF exacerbation: Status: Acute Plan Pt is an 84-year-old female with a PMH significant for HFpEF, HTN, CAD s/p CABG 2019, and insulin-dependent type 2 diabetes?who presents to the ED with?fever, chills, SOB, and cough for the past few days, significantly worsened last night and this morning. Pt will be admitted to the hospital for treatment and further evaluation of acute hypoxic respiratory failure in the setting of rhino virus and CHF exacerbation. Acute hypoxic respiratory failure in the setting of rhino virus Pt desatting to 88% on RA, wheezing and rales on exam Will treat with DuoNebs, steroids, guaifenesin Titrate supplemental O2 >92, wean as tolerated Monitor respiratory status Acute HFpEF exacerbation Pt with SOB, hypoxia, elevated BNP, 2+ bilateral pitting edema Will treat with Lasix 40 mg IV daily Monitor I/O, daily weights, lytes Low-salt diet Insulin-dependent type 2 diabetes Sliding-scale insulin, Lantus Diabetic diet HTN Continue losartan and amlodipine Full Code Attending:?Dr. Milan DVT Prophylaxis: Lovenox Pt will require a hospitalization of at least two nights for treatment of?acute hypoxic respiratory failure in the setting of rhino virus and CHF exacerbation. Pt require hospital level care for administration of supplemental oxygen, breathing treatments, steroids, and IV Lasix with close monitoring labs and respiratory function. Quality Stroke Does the patient have a stroke diagnosis?: No VTE Prior VTE?: No VTE Risk Level:: Medical - moderate - high VTE Device Contraindication: Treatment Not Indicated VTE Drug Contraindication: N/A - Med Ordered
[2024-12-15 11:23] LABS: Influenza A H1 PCR Not Detected (Not Detect.); Influenza A H1-2009 PCR Not Detected (Not Detect.); Influenza A H3 PCR Not Detected (Not Detect.)
--- NOTE | 2024-12-15 14:23 | PHA.MEDREC ---
Pharmacy Consult ? Medication Reconciliation Pharmacy has completed the medication reconciliation.Med rec complete, spoke to patients visiting nurse Jacqui
[2024-12-15] MEDS: Enoxaparin Sodium 40 MG/0.4 ML SYRINGE SUBCUT (14:51)
[2024-12-15] MEDS: 0.9 % Sodium Chloride Flush 3 ML SYRINGE IVFLUSH ×2 (17:15→20:48)
[2024-12-15 17:33] LABS: Glucose, Whole Blood 341 mg/dL (60-115)
[2024-12-15] MEDS: Insulin Lispro 100 UNIT/ML 3 ML VIAL SUBCUT ×2 (17:55→20:48)
[2024-12-15] MEDS: guaiFEN/Codeine SF 200/20/10ML 10 ML LIQUID PO ×2 (18:28→22:21)
[2024-12-15 20:32] LABS: Glucose, Whole Blood 321 mg/dL (60-115)
[2024-12-16 04:00] VITALS: BP 138/75; PULSE 86; RESP 18; TEMP 36.7; O2SAT 94
[2024-12-16] MEDS: guaiFEN/Codeine SF 200/20/10ML 10 ML LIQUID PO ×3 (04:17→23:43)
[2024-12-16 06:00] VITALS: BMI 33.3
[2024-12-16 06:38] LABS: Anion Gap 11 (12-20); Blood Urea Nitrogen 35 mg/dL (9-16); Calcium 8.9 mg/dL (8.4-10.2); Carbon Dioxide 24 mmol/L (22-29); Chloride 107 mmol/L (96-108); Creatinine Clr Calc Pharmacy 45.1; Estimated Glomerular Filt Rate 46; Glucose Random 222 mg/dL (60-115); Sodium 138 mmol/L (135-145)
[2024-12-16 07:41] LABS: Glucose, Whole Blood 213 mg/dL (60-115)
[2024-12-16 07:48] VITALS: BP 127/69; PULSE 94; RESP 18; TEMP 37.2; O2SAT 93
[2024-12-16] MEDS: Insulin Lispro 100 UNIT/ML 3 ML VIAL SUBCUT ×4 (08:24→21:09)
[2024-12-16] MEDS: predniSONE 20 MG TABLET 40 MG PO (08:26)
[2024-12-16] MEDS: 0.9 % Sodium Chloride Flush 3 ML SYRINGE IVFLUSH ×3 (08:26→21:09)
[2024-12-16] MEDS: Furosemide 40 MG/4 ML VIAL IVPUSH (10:41)
[2024-12-16 11:18] VITALS: BP 125/62; PULSE 82; RESP 18; TEMP 36.6; O2SAT 93
[2024-12-16 11:21] LABS: Glucose, Whole Blood 303 mg/dL (60-115)
[2024-12-16] MEDS: Enoxaparin Sodium 40 MG/0.4 ML SYRINGE SUBCUT (13:24)
--- NOTE | 2024-12-16 14:04 | HO.PM.IMPN ---
Subjective Subjective Date of Service: 12/16/24 Interval History: No acute issues overnight. Notes minimal improvement if any Review of Systems Denies chest pain Denies shortness of breath Denies nausea vomiting diarrhea Denies fever chills Physical Exam Vital Signs: Vital Signs: Last Vital Signs Temp 97.9 F 12/16/24 11:18 Pulse 82 12/16/24 11:18 Resp 18 12/16/24 11:18 BP 125/62 12/16/24 11:18 Pulse Ox 93 12/16/24 11:18 O2 Del Method Room Air 12/16/24 11:18 O2 Flow Rate 2 12/16/24 07:48 Oxygen Flow Rate 2 12/15/24 08:15 BMI result Body Mass Index 33.3 Const: Other: Awake alert oriented x3 no acute distress Resp: Other: Diminished throughout with scattered expiratory wheezes Cardio: Other: No S4; positive S1-S2; no S3 murmurs rubs or gallops GI: Other: Soft nontender nondistended normoactive bowel sounds Extrem: Other: No edema bilaterally Objective Data Active Medications Acetaminophen (Acetaminophen 325 Mg Tablet) 650 mg PO Q6H PRN PRN Reason: Pain, Mild 1-3,fever,headache Albuterol/Ipratropium (Albuterol/Iprat 2.5/0.5mg 3 Ml Ampul.Neb) 3 ml INHALE RQ4H WHILE AWAKE PRN PRN Reason: Shortness of Breath/Wheezing Calcium Carbonate (Calcium Carbonate 750 Mg Tab.Chew) 750 mg PO Q4H PRN PRN Reason: Heartburn Dextrose (Dextrose 50 % 25 Gm/50 Ml Syringe) 25 gm IVPUSH Q15M PRN; Protocol PRN Reason: per Hypoglycemia Standing Ord. Enoxaparin Sodium (Enoxaparin Sodium 40 Mg/0.4 Ml Syringe) 40 mg SUBCUT Q24H [facility] Last Admin: 12/16/24 13:24 Dose: 40 mg Documented By: FRANKIE Furosemide (Furosemide 40 Mg/4 Ml Vial) 40 mg IVPUSH DAILY [facility]; Protocol Last Admin: 12/16/24 10:41 Dose: 40 mg Documented By: FRANKIE Comments: administered late due to no IV access Glucose (Glucose Gel 15 Gm Gel..Gram.) 15 gm PO Q15M PRN; Protocol PRN Reason: per Hypoglycemia Standing Ord. Guaifenesin/Codeine Phosphate (Guaifen/Codeine Sf 200/20/10ml 10 Ml Liquid) 10 ml PO Q4H PRN PRN Reason: Cough Last Admin: 12/16/24 04:17 Dose: 10 ml Documented By: ISSA Insulin Human Lispro (Insulin Lispro 100 Unit/Ml 3 Ml Vial) 0 unit SUBCUT QIDACHS [facility]; Protocol Last Admin: 12/16/24 12:15 Dose: 8 unit Documented By: FRANKIE Magnesium Hydroxide (Milk Of Magnesia 30 Ml Oral.Susp) 30 ml PO DAILY PRN PRN Reason: Constipation Melatonin (Melatonin 3 Mg Tablet) 6 mg PO BEDTIME PRN PRN Reason: Insomnia Ondansetron HCl (Ondansetron Hcl 4 Mg/2 Ml Vial) 4 mg IVPUSH Q8H PRN PRN Reason: Nausea and Vomiting Prednisone (Prednisone 20 Mg Tablet) 40 mg PO DAILY [facility] Last Admin: 12/16/24 08:26 Dose: 40 mg Documented By: FRANKIE Sodium Chloride (0.9 % Sodium Chloride Flush 3 Ml Syringe) 3 ml IVFLUSH QSHIFT [facility] Last Admin: 12/16/24 08:26 Dose: 3 ml Documented By: FRANKIE Labs 12/15/24 08:39 12/16/24 05:38 Labs: Laboratory Results - last 24 hr 12/15/24 12/15/24 12/16/24 17:30 20:29 05:38 Anion Gap 11 L Estim Creat Clear Calc 45.1 Estimated GFR 46 POC Glucose 341 H 321 H Random Glucose 222 H Calcium 8.9 12/16/24 12/16/24 07:38 11:17 Anion Gap Estim Creat Clear Calc Estimated GFR POC Glucose 213 H 303 H Random Glucose Calcium Assessment and Plan (1) CHF exacerbation: Status: Acute (2) CKD (chronic kidney disease): Status: Acute (3) Type 2 diabetes mellitus: Status: Acute Plan Pt is an 84-year-old female with a PMH significant for HFpEF, HTN, CAD s/p CABG 2019, and insulin-dependent type 2 diabetes?who presents to the ED with?fever, chills, SOB, and cough for the past few days, significantly worsened last night and this morning. Pt will be admitted to the hospital for treatment and further evaluation of acute hypoxic respiratory failure in the setting of rhino virus and CHF exacerbation. 1.Acute hypoxic respiratory failure in the setting of rhino virus -switch to IV steroids given diffuse wheezing -titrate supplemental O2 >92, wean as tolerated 2.Acute HFpEF exacerbation -improved in response to therapies -continue daily IV Lasix -follow renal/divalents 3.Insulin-dependent type 2 diabetes -acceptable control on current therapies -lispro correctional scale -adjust as indicated 4.HTN -acceptable control on current therapies -adjust as indicated Full Code Lovenox Patient will require ongoing hospitalization for IV steroids to treat acute rhino virus and wheezing. Also requiring IV Lasix Quality Stroke Does the patient have a stroke diagnosis?: No VTE Prior VTE?: No VTE Risk Level:: Medical - moderate - high VTE Device Contraindication: Treatment Not Indicated VTE Drug Contraindication: N/A - Med Ordered
[2024-12-16 15:23] VITALS: BP 128/74; PULSE 84; RESP 19; TEMP 36.8; O2SAT 92
[2024-12-16] MEDS: methylPREDNISolone Sod Succ 125 MG/2 ML VIAL 60 MG IVPUSH ×2 (15:49→21:09)
[2024-12-16 16:06] LABS: Glucose, Whole Blood 261 mg/dL (60-115)
--- NOTE | 2024-12-16 16:26 | MHC.CM.PN ---
PT REPORTS HE LIVES WITH HIS GF WHO IS ALMOST 90 SO UNABLE TO ASSIST HE HAD NO SERVICES [employer] AND USES A CANE HCP ON FILE PCP: RUTHIE RUBALCAVA DCP TBD: PT WOULD PREFER TO DC HOME WITH NO SERVICES BUT MAY BE OPEN TO [facility] IF NECESSARY
[2024-12-16 19:45] VITALS: BP 145/75; PULSE 82; RESP 20; TEMP 36.3; O2SAT 95
[2024-12-16 19:59] LABS: Glucose, Whole Blood 293 mg/dL (60-115)
[2024-12-17] MEDS: methylPREDNISolone Sod Succ 125 MG/2 ML VIAL 60 MG IVPUSH ×4 (03:21→20:39)
[2024-12-17 04:00] VITALS: BP 150/79; PULSE 88; RESP 20; TEMP 37.2; O2SAT 96
[2024-12-17] MEDS: guaiFEN/Codeine SF 200/20/10ML 10 ML LIQUID PO ×4 (05:13→23:24)
[2024-12-17 07:07] VITALS: BP 158/78; PULSE 92; RESP 18; TEMP 36.5; O2SAT 92
[2024-12-17 07:18] LABS: Glucose, Whole Blood 334 mg/dL (60-115)
[2024-12-17] MEDS: Insulin Lispro 100 UNIT/ML 3 ML VIAL SUBCUT ×4 (07:51→20:40)
[2024-12-17] MEDS: Furosemide 40 MG/4 ML VIAL IVPUSH (07:52)
[2024-12-17] MEDS: 0.9 % Sodium Chloride Flush 3 ML SYRINGE IVFLUSH ×3 (07:52→23:25)
[2024-12-17 08:00] LABS: Anion Gap 13 (12-20); Blood Urea Nitrogen 37 mg/dL (9-16); Calcium 9.2 mg/dL (8.4-10.2); Carbon Dioxide 26 mmol/L (22-29); Chloride 102 mmol/L (96-108); Creatinine Clr Calc Pharmacy 46.1; Estimated Glomerular Filt Rate 47; Glucose Random 312 mg/dL (60-115); Potassium 4.2 mmol/L (3.3-5.1); Sodium 137 mmol/L (135-145)
[2024-12-17 11:29] LABS: Glucose, Whole Blood 381 mg/dL (60-115)
--- NOTE | 2024-12-17 11:36 | PC.NURSE ---
BS 381 ,Dr. Yates made aware
[2024-12-17] MEDS: Benzonatate 100 MG CAPSULE 200 MG PO ×2 (12:11→23:24)
[2024-12-17] MEDS: Doxycycline Hyclate 100 MG in 0.9 % Sodium Chloride 250 ML 166.67 MG IV ×2 (12:15→23:25)
[2024-12-17] MEDS: Enoxaparin Sodium 40 MG/0.4 ML SYRINGE SUBCUT (13:34)
--- NOTE | 2024-12-17 14:35 | HO.PM.IMPN ---
Subjective Subjective Date of Service: 12/17/24 Interval History: Minimal improvement overnight. Still wheezy and short of breath with minimal exertion Review of Systems Denies chest pain Denies shortness of breath Denies nausea vomiting diarrhea Denies fever chills Physical Exam Vital Signs: Vital Signs: Last Vital Signs Temp 97.7 F 12/17/24 07:07 Pulse 92 12/17/24 07:07 Resp 18 12/17/24 07:07 BP 158/78 H 12/17/24 07:07 Pulse Ox 92 12/17/24 07:07 O2 Del Method Nasal Cannula 12/17/24 07:07 O2 Flow Rate 2 12/17/24 07:07 Oxygen Flow Rate 2 12/15/24 08:15 BMI result Body Mass Index 33.3 Const: Other: Awake alert oriented x3 no acute distress Resp: Other: Diminished throughout with scattered expiratory wheezes Cardio: Other: No S4; positive S1-S2; no S3 murmurs rubs or gallops GI: Other: Soft nontender nondistended normoactive bowel sounds Extrem: Other: No edema bilaterally Objective Data Active Medications Acetaminophen (Acetaminophen 325 Mg Tablet) 650 mg PO Q6H PRN PRN Reason: Pain, Mild 1-3,fever,headache Albuterol/Ipratropium (Albuterol/Iprat 2.5/0.5mg 3 Ml Ampul.Neb) 3 ml INHALE RQ4H WHILE AWAKE PRN PRN Reason: Shortness of Breath/Wheezing Benzonatate (Benzonatate 100 Mg Capsule) 200 mg PO TID PRN PRN Reason: Cough Last Admin: 12/17/24 12:11 Dose: 200 mg Documented By: WESLY Calcium Carbonate (Calcium Carbonate 750 Mg Tab.Chew) 750 mg PO Q4H PRN PRN Reason: Heartburn Dextrose (Dextrose 50 % 25 Gm/50 Ml Syringe) 25 gm IVPUSH Q15M PRN; Protocol PRN Reason: per Hypoglycemia Standing Ord. Enoxaparin Sodium (Enoxaparin Sodium 40 Mg/0.4 Ml Syringe) 40 mg SUBCUT Q24H [facility]S [facility] 234 BEDS AT THE [facility] Last Admin: 12/17/24 13:34 Dose: 40 mg Documented By: WESLY Furosemide (Furosemide 40 Mg/4 Ml Vial) 40 mg IVPUSH DAILY [facility]CLUDE 234 BEDS AT THE [facility]; Protocol Last Admin: 12/17/24 07:52 Dose: 40 mg Documented By: WESLY Glucose (Glucose Gel 15 Gm Gel..Gram.) 15 gm PO Q15M PRN; Protocol PRN Reason: per Hypoglycemia Standing Ord. Guaifenesin/Codeine Phosphate (Guaifen/Codeine Sf 200/20/10ml 10 Ml Liquid) 10 ml PO Q4H PRN PRN Reason: Cough Last Admin: 12/17/24 10:49 Dose: 10 ml Documented By: WESLY Doxycycline Hyclate 100 mg/ (Sodium Chloride) 250 mls @ 166.67 mls/hr IV Q12H [facility]S INCLUDE 234 BEDS AT THE [facility] Last Admin: 12/17/24 12:15 Dose: 166.67 mls/hr Documented By: WESLY Insulin Human Lispro (Insulin Lispro 100 Unit/Ml 3 Ml Vial) 0 unit SUBCUT QIDACHS [facility]S [facility]CLUDE 234 BEDS AT THE [facility]; Protocol Last Admin: 12/17/24 11:40 Dose: 10 unit Documented By: WESLY Magnesium Hydroxide (Milk Of Magnesia 30 Ml Oral.Susp) 30 ml PO DAILY PRN PRN Reason: Constipation Melatonin (Melatonin 3 Mg Tablet) 6 mg PO BEDTIME PRN PRN Reason: Insomnia Methylprednisolone Sodium Succinate (Methylprednisolone Sod Succ 125 Mg/2 Ml Vial) 60 mg IVPUSH Q6H [facility]S [facility]CLUDE 234 BEDS AT [facility] Last Admin: 12/17/24 07:53 Dose: 60 mg Documented By: WESLY Ondansetron HCl (Ondansetron Hcl 4 Mg/2 Ml Vial) 4 mg IVPUSH Q8H PRN PRN Reason: Nausea and Vomiting Sodium Chloride (0.9 % Sodium Chloride Flush 3 Ml Syringe) 3 ml IVFLUSH QSHIFT COUNTS INCLUDE 234 BEDS AT THE [facility] Last Admin: 12/17/24 07:52 Dose: 3 ml Documented By: WESLY Labs 12/15/24 08:39 12/17/24 07:19 Labs: Laboratory Results - last 24 hr 12/16/24 12/16/24 12/17/24 16:00 19:47 07:05 Anion Gap Estim Creat Clear Calc Estimated GFR POC Glucose 261 H 293 H 334 H Random Glucose Calcium 12/17/24 12/17/24 07:19 11:23 Anion Gap 13 Estim Creat Clear Calc 46.1 Estimated GFR 47 POC Glucose 381 H* Random Glucose 312 H Calcium 9.2 Assessment and Plan (1) CHF exacerbation: Status: Acute (2) Type 2 diabetes mellitus: Status: Acute (3) CKD (chronic kidney disease): Status: Acute Plan Pt is an 84-year-old female with a PMH significant for HFpEF, HTN, CAD s/p CABG 2020, and insulin-dependent type 2 diabetes?who presents to the ED with?fever, chills, SOB, and cough for the past few days, significantly worsened last night and this morning. Pt will be admitted to the hospital for treatment and further evaluation of acute hypoxic respiratory failure in the setting of rhino virus and CHF exacerbation. 1.Acute hypoxic respiratory failure in the setting of rhino virus -continue methylprednisolone 60 mg q.6 hours as ordered -titrate supplemental O2 >92, wean as tolerated 2.Acute HFpEF exacerbation -improved in response to therapies -continue daily IV Lasix -follow renal/divalents 3.Insulin-dependent type 2 diabetes -acceptable control on current therapies -lispro correctional scale.. Add hs Lantus -adjust as indicated 4.HTN -acceptable control on current therapies -adjust as indicated Full Code Lovenox Patient will require ongoing hospitalization for IV steroids to treat acute rhino virus and wheezing. Also requiring IV Lasix Quality Stroke Does the patient have a stroke diagnosis?: No VTE Prior VTE?: No VTE Risk Level:: Medical - moderate - high VTE Device Contraindication: Treatment Not Indicated VTE Drug Contraindication: N/A - Med Ordered
[2024-12-17 15:08] VITALS: BP 132/74; PULSE 76; RESP 16; TEMP 36.2; O2SAT 94
[2024-12-17 16:38] LABS: Glucose, Whole Blood 322 mg/dL (60-115)
[2024-12-17 19:34] VITALS: BP 140/73; PULSE 95; RESP 17; TEMP 36.5; O2SAT 94
[2024-12-17 20:22] LABS: Glucose, Whole Blood 379 mg/dL (60-115)
--- NOTE | 2024-12-18 01:15 | PC.NURSE ---
Bedtime POC was 379, required 10 units of Lispro per sliding scale. Dr Salinas aware, no new orders.
[2024-12-18] MEDS: guaiFEN/Codeine SF 200/20/10ML 10 ML LIQUID PO ×4 (03:12→23:32)
[2024-12-18] MEDS: methylPREDNISolone Sod Succ 125 MG/2 ML VIAL 60 MG IVPUSH ×4 (03:12→20:20)
[2024-12-18 03:16] VITALS: BP 158/81; PULSE 89; RESP 18; TEMP 36.6; O2SAT 93
[2024-12-18 07:22] VITALS: BP 134/79; PULSE 81; RESP 18; TEMP 36.5; O2SAT 93
[2024-12-18 07:29] LABS: Glucose, Whole Blood 379 mg/dL (60-115)
[2024-12-18 07:58] LABS: Anion Gap 13 (12-20); Blood Urea Nitrogen 46 mg/dL (9-16); Carbon Dioxide 25 mmol/L (22-29); Chloride 103 mmol/L (96-108); Creatinine Clr Calc Pharmacy 45.8; Estimated Glomerular Filt Rate 47; Potassium 3.9 mmol/L (3.3-5.1); Sodium 137 mmol/L (135-145)
[2024-12-18 08:02] LABS: Glucose Random 381 mg/dL (60-115)
[2024-12-18] MEDS: Benzonatate 100 MG CAPSULE 200 MG PO (08:07)
[2024-12-18] MEDS: 0.9 % Sodium Chloride Flush 3 ML SYRINGE IVFLUSH ×3 (08:08→20:20)
[2024-12-18] MEDS: Furosemide 40 MG/4 ML VIAL IVPUSH (08:10)
[2024-12-18] MEDS: Insulin Lispro 100 UNIT/ML 3 ML VIAL SUBCUT ×4 (08:11→20:19)
[2024-12-18] MEDS: Insulin Glargine,Hum.rec.anlog 100 UNIT/ML 10 ML VIAL 40 UNIT SUBCUT (08:12)
[2024-12-18] MEDS: Clopidogrel Bisulfate 75 MG TABLET PO (08:13)
[2024-12-18] MEDS: Losartan Potassium 50 MG TABLET 100 MG PO (08:13)
[2024-12-18] MEDS: amLODIPine Besylate 10 MG TABLET PO (08:13)
--- NOTE | 2024-12-18 10:17 | PC.NURSE ---
Patient took his chair alarm off ,encouraged patient to ask for assistance and keep alarm on.
[2024-12-18 11:25] LABS: Glucose, Whole Blood 352 mg/dL (60-115)
--- NOTE | 2024-12-18 11:26 | HO.PM.IMPN ---
Subjective Subjective Date of Service: 12/18/24 Interval History: Improving slowly with the addition of steroids. Still with O2 requirement Review of Systems Denies chest pain Denies shortness of breath Denies nausea vomiting diarrhea Denies fever chills Physical Exam Vital Signs: Vital Signs: Last Vital Signs Temp 97.7 F 12/18/24 07:22 Pulse 81 12/18/24 07:22 Resp 18 12/18/24 07:22 BP 134/79 12/18/24 07:22 Pulse Ox 93 12/18/24 07:22 O2 Del Method Nasal Cannula 12/18/24 07:22 O2 Flow Rate 2 12/18/24 07:22 Oxygen Flow Rate 2 12/15/24 08:15 BMI result Body Mass Index 33.3 Const: Other: Awake alert oriented x3 no acute distress Resp: Other: Diminished throughout with scattered expiratory wheezes Cardio: Other: No S4; positive S1-S2; no S3 murmurs rubs or gallops GI: Other: Soft nontender nondistended normoactive bowel sounds Extrem: Other: No edema bilaterally Objective Data Active Medications Acetaminophen (Acetaminophen 325 Mg Tablet) 650 mg PO Q6H PRN PRN Reason: Pain, Mild 1-3,fever,headache Albuterol/Ipratropium (Albuterol/Iprat 2.5/0.5mg 3 Ml Ampul.Neb) 3 ml INHALE RQ4H WHILE AWAKE PRN PRN Reason: Shortness of Breath/Wheezing Amlodipine Besylate (Amlodipine Besylate 10 Mg Tablet) 10 mg PO DAILY [facility]; Protocol Last Admin: 12/18/24 08:13 Dose: 10 mg Documented By: WESLY Benzonatate (Benzonatate 100 Mg Capsule) 200 mg PO TID PRN PRN Reason: Cough Last Admin: 12/18/24 08:07 Dose: 200 mg Documented By: WESLY Calcium Carbonate (Calcium Carbonate 750 Mg Tab.Chew) 750 mg PO Q4H PRN PRN Reason: Heartburn Clopidogrel Bisulfate (Clopidogrel Bisulfate 75 Mg Tablet) 75 mg PO DAILY [facility] Last Admin: 12/18/24 08:13 Dose: 75 mg Documented By: WESLY Dextrose (Dextrose 50 % 25 Gm/50 Ml Syringe) 25 gm IVPUSH Q15M PRN; Protocol PRN Reason: per Hypoglycemia Standing Ord. Enoxaparin Sodium (Enoxaparin Sodium 40 Mg/0.4 Ml Syringe) 40 mg SUBCUT Q24H [facility] Last Admin: 12/17/24 13:34 Dose: 40 mg Documented By: WESLY Furosemide (Furosemide 40 Mg/4 Ml Vial) 40 mg IVPUSH DAILY [facility]; Protocol Last Admin: 12/18/24 08:10 Dose: 40 mg Documented By: WESLY Glucose (Glucose Gel 15 Gm Gel..Gram.) 15 gm PO Q15M PRN; Protocol PRN Reason: per Hypoglycemia Standing Ord. Guaifenesin/Codeine Phosphate (Guaifen/Codeine Sf 200/20/10ml 10 Ml Liquid) 10 ml PO Q4H PRN PRN Reason: Cough Last Admin: 12/18/24 10:15 Dose: 10 ml Documented By: WESLY Doxycycline Hyclate 100 mg/ (Sodium Chloride) 250 mls @ 166.67 mls/hr IV Q12H [facility] Last Infusion: 12/18/24 01:14 Dose: Infused Documented By: ALEKSANDRA Insulin Glargine (Insulin Glargine,Hum.Rec.Anlog 100 Unit/Ml 10 Ml Vial) 40 unit SUBCUT DAILY [facility] Last Admin: 12/18/24 08:12 Dose: 40 unit Documented By: WESLY Insulin Human Lispro (Insulin Lispro 100 Unit/Ml 3 Ml Vial) 0 unit SUBCUT QIDACHS [facility]; Protocol Last Admin: 12/18/24 08:11 Dose: 10 unit Documented By: WESLY Losartan Potassium (Losartan Potassium 50 Mg Tablet) 100 mg PO DAILY [facility]; Protocol Last Admin: 12/18/24 08:13 Dose: 100 mg Documented By: WESLY Magnesium Hydroxide (Milk Of Magnesia 30 Ml Oral.Susp) 30 ml PO DAILY PRN PRN Reason: Constipation Melatonin (Melatonin 3 Mg Tablet) 6 mg PO BEDTIME PRN PRN Reason: Insomnia Methylprednisolone Sodium Succinate (Methylprednisolone Sod Succ 125 Mg/2 Ml Vial) 60 mg IVPUSH Q6H [facility] Last Admin: 12/18/24 08:08 Dose: 60 mg Documented By: WESLY Ondansetron HCl (Ondansetron Hcl 4 Mg/2 Ml Vial) 4 mg IVPUSH Q8H PRN PRN Reason: Nausea and Vomiting Senna (Sennosides 8.6 Mg Tablet) 17.2 mg PO BEDTIME [facility] Sodium Chloride (0.9 % Sodium Chloride Flush 3 Ml Syringe) 3 ml IVFLUSH QSHIFT [facility] Last Admin: 12/18/24 08:08 Dose: 3 ml Documented By: WESLY Labs 12/15/24 08:39 12/18/24 05:56 Labs: Laboratory Results - last 24 hr 12/17/24 12/17/24 12/17/24 11:23 16:35 20:15 Anion Gap Estim Creat Clear Calc Estimated GFR POC Glucose 381 H* 322 H 379 H* Random Glucose Calcium 12/18/24 12/18/24 12/18/24 05:56 07:22 11:08 Anion Gap 13 Estim Creat Clear Calc 45.8 Estimated GFR 47 POC Glucose 379 H* 352 H* Random Glucose 381 H* Calcium 9.0 Assessment and Plan (1) CHF exacerbation: Status: Acute (2) Type 2 diabetes mellitus: Status: Acute Plan Pt is an 84-year-old female with a PMH significant for HFpEF, HTN, CAD s/p CABG 2019, and insulin-dependent type 2 diabetes?who presents to the ED with?fever, chills, SOB, and cough for the past few days, significantly worsened last night and this morning. Pt will be admitted to the hospital for treatment and further evaluation of acute hypoxic respiratory failure in the setting of rhino virus and CHF exacerbation. 1.Acute hypoxic respiratory failure in the setting of rhino virus -continue methylprednisolone 60 mg q.6 hours as ordered... Switch to p.o. in a.m. -titrate supplemental O2 >92, wean as tolerated 2.Acute HFpEF exacerbation -improved in response to therapies -continue daily IV Lasix -follow renal/divalents 3.Insulin-dependent type 2 diabetes -acceptable control on current therapies -lispro correctional scale.. Add Lantus as per outpatient dosing -adjust as indicated 4.HTN -acceptable control on current therapies -adjust as indicated Full Code Lovenox Patient will require ongoing hospitalization for IV steroids to treat acute rhino virus and wheezing. Also requiring IV Lasix Quality Stroke Does the patient have a stroke diagnosis?: No VTE Prior VTE?: No VTE Risk Level:: Medical - moderate - high VTE Device Contraindication: Treatment Not Indicated VTE Drug Contraindication: N/A - Med Ordered
--- NOTE | 2024-12-18 11:30 | PC.NURSE ---
BS 352,Dr. Yates notified
[2024-12-18] MEDS: Doxycycline Hyclate 100 MG in 0.9 % Sodium Chloride 250 ML 166.67 MG IV ×2 (11:35→23:30)
[2024-12-18] MEDS: Enoxaparin Sodium 40 MG/0.4 ML SYRINGE SUBCUT (13:38)
[2024-12-18 15:21] VITALS: BP 140/64; PULSE 75; RESP 18; TEMP 36.2; O2SAT 93
[2024-12-18 16:27] LABS: Glucose, Whole Blood 345 mg/dL (60-115)
--- NOTE | 2024-12-18 16:32 | PC.NURSE ---
Patient requested assistance with shaving DELMI Kim and DELMI Christopher notified
[2024-12-18 19:06] VITALS: BP 117/53; PULSE 54; RESP 18; TEMP 36.4; O2SAT 94
[2024-12-18 19:38] LABS: Glucose, Whole Blood 386 mg/dL (60-115)
[2024-12-18] MEDS: Sennosides 8.6 MG TABLET 17.2 MG PO (20:19)
[2024-12-19] MEDS: Benzonatate 100 MG CAPSULE 200 MG PO ×3 (00:13→21:12)
[2024-12-19] MEDS: methylPREDNISolone Sod Succ 125 MG/2 ML VIAL 60 MG IVPUSH ×4 (03:16→21:12)
[2024-12-19 03:30] VITALS: BP 132/85; PULSE 80; RESP 16; TEMP 36.6; O2SAT 96
[2024-12-19] MEDS: guaiFEN/Codeine SF 200/20/10ML 10 ML LIQUID PO ×3 (05:34→21:12)
[2024-12-19 05:39] VITALS: BMI 33.9
[2024-12-19 07:24] VITALS: BP 144/63; PULSE 60; RESP 18; TEMP 36.1; O2SAT 94
[2024-12-19 07:31] LABS: Glucose, Whole Blood 285 mg/dL (60-115)
[2024-12-19] MEDS: Insulin Glargine,Hum.rec.anlog 100 UNIT/ML 10 ML VIAL 40 UNIT SUBCUT (08:02)
[2024-12-19] MEDS: Insulin Lispro 100 UNIT/ML 3 ML VIAL SUBCUT ×4 (08:02→21:12)
[2024-12-19] MEDS: Losartan Potassium 50 MG TABLET 100 MG PO (08:03)
[2024-12-19] MEDS: Clopidogrel Bisulfate 75 MG TABLET PO (08:03)
[2024-12-19] MEDS: amLODIPine Besylate 10 MG TABLET PO (08:03)
[2024-12-19] MEDS: 0.9 % Sodium Chloride Flush 3 ML SYRINGE IVFLUSH ×3 (08:03→21:13)
[2024-12-19] MEDS: Furosemide 40 MG/4 ML VIAL IVPUSH (08:04)
[2024-12-19 11:36] LABS: Glucose, Whole Blood 463 mg/dL (60-115)
[2024-12-19] MEDS: Doxycycline Monohydrate 100 MG CAPSULE PO (11:44)
--- NOTE | 2024-12-19 13:35 | HO.PM.IMPN ---
Subjective Subjective Date of Service: 12/19/24 Interval History: Slowly improving. Still with persistent cough and O2 requirement Review of Systems Denies chest pain Denies shortness of breath Denies nausea vomiting diarrhea Denies fever chills Physical Exam Vital Signs: Vital Signs: Last Vital Signs Temp 96.9 F 12/19/24 07:24 Pulse 60 12/19/24 07:24 Resp 18 12/19/24 07:24 BP 144/63 H 12/19/24 07:24 Pulse Ox 94 12/19/24 07:24 O2 Del Method Nasal Cannula 12/19/24 07:24 O2 Flow Rate 2 12/19/24 07:24 Oxygen Flow Rate 2 12/15/24 08:15 BMI result Body Mass Index 33.9 Const: Other: Awake alert oriented x3 no acute distress Resp: Other: Diminished throughout with scattered expiratory wheezes Cardio: Other: No S4; positive S1-S2; no S3 murmurs rubs or gallops GI: Other: Soft nontender nondistended normoactive bowel sounds Extrem: Other: No edema bilaterally Objective Data Active Medications Acetaminophen (Acetaminophen 325 Mg Tablet) 650 mg PO Q6H PRN PRN Reason: Pain, Mild 1-3,fever,headache Albuterol/Ipratropium (Albuterol/Iprat 2.5/0.5mg 3 Ml Ampul.Neb) 3 ml INHALE RQ4H WHILE AWAKE PRN PRN Reason: Shortness of Breath/Wheezing Amlodipine Besylate (Amlodipine Besylate 10 Mg Tablet) 10 mg PO DAILY [facility]; Protocol Last Admin: 12/19/24 08:03 Dose: 10 mg Documented By: JESSA Benzonatate (Benzonatate 100 Mg Capsule) 200 mg PO TID PRN PRN Reason: Cough Last Admin: 12/19/24 11:44 Dose: 200 mg Documented By: JESSA Calcium Carbonate (Calcium Carbonate 750 Mg Tab.Chew) 750 mg PO Q4H PRN PRN Reason: Heartburn Clopidogrel Bisulfate (Clopidogrel Bisulfate 75 Mg Tablet) 75 mg PO DAILY [facility] Last Admin: 12/19/24 08:03 Dose: 75 mg Documented By: JESSA Dextrose (Dextrose 50 % 25 Gm/50 Ml Syringe) 25 gm IVPUSH Q15M PRN; Protocol PRN Reason: per Hypoglycemia Standing Ord. Doxycycline Monohydrate (Doxycycline Monohydrate 100 Mg Capsule) 100 mg PO Q12H [facility] Last Admin: 12/19/24 11:44 Dose: 100 mg Documented By: JESSA Enoxaparin Sodium (Enoxaparin Sodium 40 Mg/0.4 Ml Syringe) 40 mg SUBCUT Q24H [facility] Last Admin: 12/18/24 13:38 Dose: 40 mg Documented By: WESLY Furosemide (Furosemide 40 Mg/4 Ml Vial) 40 mg IVPUSH DAILY [facility]; Protocol Last Admin: 12/19/24 08:04 Dose: 40 mg Documented By: JESSA Glucose (Glucose Gel 15 Gm Gel..Gram.) 15 gm PO Q15M PRN; Protocol PRN Reason: per Hypoglycemia Standing Ord. Guaifenesin/Codeine Phosphate (Guaifen/Codeine Sf 200/20/10ml 10 Ml Liquid) 10 ml PO Q4H PRN PRN Reason: Cough Last Admin: 12/19/24 11:44 Dose: 10 ml Documented By: JESSA Insulin Glargine (Insulin Glargine,Hum.Rec.Anlog 100 Unit/Ml 10 Ml Vial) 40 unit SUBCUT DAILY [facility] Last Admin: 12/19/24 08:02 Dose: 40 unit Documented By: JESSA Insulin Human Lispro (Insulin Lispro 100 Unit/Ml 3 Ml Vial) 0 unit SUBCUT QIDACHS [facility]; Protocol Last Admin: 12/19/24 11:44 Dose: 10 unit Documented By: JESSA Losartan Potassium (Losartan Potassium 50 Mg Tablet) 100 mg PO DAILY [facility]; Protocol Last Admin: 12/19/24 08:03 Dose: 100 mg Documented By: JESSA Magnesium Hydroxide (Milk Of Magnesia 30 Ml Oral.Susp) 30 ml PO DAILY PRN PRN Reason: Constipation Melatonin (Melatonin 3 Mg Tablet) 6 mg PO BEDTIME PRN PRN Reason: Insomnia Methylprednisolone Sodium Succinate (Methylprednisolone Sod Succ 125 Mg/2 Ml Vial) 60 mg IVPUSH Q6H [facility] Last Admin: 12/19/24 08:02 Dose: 60 mg Documented By: JESSA Ondansetron HCl (Ondansetron Hcl 4 Mg/2 Ml Vial) 4 mg IVPUSH Q8H PRN PRN Reason: Nausea and Vomiting Senna (Sennosides 8.6 Mg Tablet) 17.2 mg PO BEDTIME [facility] Last Admin: 12/18/24 20:19 Dose: 17.2 mg Documented By: ARLEN Sodium Chloride (0.9 % Sodium Chloride Flush 3 Ml Syringe) 3 ml IVFLUSH QSHIFT [facility] Last Admin: 12/19/24 08:03 Dose: 3 ml Documented By: JESSA Labs 12/15/24 08:39 12/18/24 05:56 Labs: Laboratory Results - last 24 hr 12/18/24 12/18/24 12/19/24 16:22 19:08 07:24 POC Glucose 345 H 386 H* 285 H 12/19/24 11:33 POC Glucose 463 H* Assessment and Plan (1) Hypoxia: Status: Acute Plan Pt is an 84-year-old female with a PMH significant for HFpEF, HTN, CAD s/p CABG 2020, and insulin-dependent type 2 diabetes?who presents to the ED with?fever, chills, SOB, and cough for the past few days, significantly worsened last night and this morning. Pt will be admitted to the hospital for treatment and further evaluation of acute hypoxic respiratory failure in the setting of rhino virus and CHF exacerbation. 1.Acute hypoxic respiratory failure in the setting of rhino virus -continue doxycycline/p.o. prednisone -titrate supplemental O2 >92, wean as tolerated 2.Acute HFpEF exacerbation -improved in response to therapies -continue daily IV Lasix -follow renal/divalents 3.Insulin-dependent type 2 diabetes -acceptable control on current therapies -lispro correctional scale.. Add Lantus as per outpatient dosing -adjust as indicated 4.HTN -acceptable control on current therapies -adjust as indicated Full Code Lovenox Patient will require ongoing hospitalization for IV steroids to treat acute rhino virus and wheezing. Also requiring IV Lasix Quality Stroke Does the patient have a stroke diagnosis?: No VTE Prior VTE?: No VTE Risk Level:: Medical - moderate - high VTE Device Contraindication: Treatment Not Indicated VTE Drug Contraindication: N/A - Med Ordered
[2024-12-19] MEDS: Enoxaparin Sodium 40 MG/0.4 ML SYRINGE SUBCUT (14:33)
[2024-12-19 15:30] VITALS: BP 118/66; PULSE 61; RESP 18; TEMP 36.3; O2SAT 96
[2024-12-19 16:19] LABS: Glucose, Whole Blood 381 mg/dL (60-115)
[2024-12-19 19:06] VITALS: BP 128/68; PULSE 63; RESP 18; TEMP 36.4; O2SAT 94
[2024-12-19 20:18] LABS: Glucose, Whole Blood 327 mg/dL (60-115)
[2024-12-19] MEDS: Sennosides 8.6 MG TABLET 17.2 MG PO (21:12)
[2024-12-20] MEDS: Doxycycline Monohydrate 100 MG CAPSULE PO ×2 (00:18→11:53)
[2024-12-20] MEDS: guaiFEN/Codeine SF 200/20/10ML 10 ML LIQUID PO ×2 (01:14→09:24)
[2024-12-20 03:23] VITALS: BP 122/59; PULSE 75; RESP 22; TEMP 36.7; O2SAT 96
[2024-12-20] MEDS: methylPREDNISolone Sod Succ 125 MG/2 ML VIAL 60 MG IVPUSH (03:26)
[2024-12-20 05:19] VITALS: BMI 33.7
[2024-12-20] MEDS: Insulin Glargine,Hum.rec.anlog 100 UNIT/ML 10 ML VIAL 40 UNIT SUBCUT (07:48)
[2024-12-20] MEDS: Insulin Lispro 100 UNIT/ML 3 ML VIAL SUBCUT ×4 (07:49→21:16)
[2024-12-20 07:56] LABS: Glucose, Whole Blood 301 mg/dL (60-115)
[2024-12-20 07:59] VITALS: BP 117/69; PULSE 56; RESP 20; TEMP 36.3; O2SAT 93
[2024-12-20] MEDS: predniSONE 20 MG TABLET 10 MG PO (09:22)
[2024-12-20] MEDS: Clopidogrel Bisulfate 75 MG TABLET PO (09:23)
[2024-12-20] MEDS: Benzonatate 100 MG CAPSULE 200 MG PO (09:23)
[2024-12-20] MEDS: Losartan Potassium 50 MG TABLET 100 MG PO (09:23)
[2024-12-20] MEDS: amLODIPine Besylate 10 MG TABLET PO (09:23)
[2024-12-20] MEDS: Insulin Glargine,Hum.rec.anlog 100 UNIT/ML 10 ML VIAL SUBCUT (09:23)
[2024-12-20] MEDS: Furosemide 40 MG/4 ML VIAL IVPUSH (09:23)
[2024-12-20] MEDS: 0.9 % Sodium Chloride Flush 3 ML SYRINGE IVFLUSH ×2 (09:24→21:17)
[2024-12-20 09:44] LABS: B Type Natriuretic Peptide 125 pg/mL (<100)
[2024-12-20 10:05] LABS: Anion Gap 13 (12-20); Blood Urea Nitrogen 59 mg/dL (9-16); Calcium 8.9 mg/dL (8.4-10.2); Carbon Dioxide 29 mmol/L (22-29); Chloride 99 mmol/L (96-108); Creatinine Clr Calc Pharmacy 37.4; Estimated Glomerular Filt Rate 37; Glucose Random 376 mg/dL (60-115); Magnesium 2.1 mg/dL (1.6-2.6); Potassium 3.9 mmol/L (3.3-5.1); Sodium 137 mmol/L (135-145)
--- NOTE | 2024-12-20 12:57 | HO.PM.IMPN ---
Subjective Subjective Date of Service: 12/20/24 Interval History: breathing improved though still coughing and wheezing off O2 now Review of Systems Review of Systems: Yes all other systems are reviewed and are negative Physical Exam Vital Signs: Vital Signs: Last Vital Signs Temp 97.3 F 12/20/24 07:59 Pulse 56 12/20/24 07:59 Resp 20 12/20/24 07:59 BP 117/69 12/20/24 07:59 Pulse Ox 93 12/20/24 07:59 O2 Del Method Nasal Cannula 12/20/24 07:59 O2 Flow Rate 2 12/20/24 07:59 Oxygen Flow Rate 2 12/15/24 08:15 BMI result Body Mass Index 33.7 Gen: in no acute distress HEENT: sclera anicteric, moist mucus membranes Neck: supple Lungs: expiratory wheezing throughout Heart: regular rate and rhythm, no murmurs Abd: soft, non-tender, non-distended Ext: no edema Skin: warm/well-perfused Neuro: alert and oriented x3, no focal findings Psych: appropriate affect Objective Data Active Medications Acetaminophen (Acetaminophen 325 Mg Tablet) 650 mg PO Q6H PRN PRN Reason: Pain, Mild 1-3,fever,headache Albuterol/Ipratropium (Albuterol/Iprat 2.5/0.5mg 3 Ml Ampul.Neb) 3 ml INHALE RQ4H WHILE AWAKE PRN PRN Reason: Shortness of Breath/Wheezing Amlodipine Besylate (Amlodipine Besylate 10 Mg Tablet) 10 mg PO DAILY [facility]; Protocol Last Admin: 12/20/24 09:23 Dose: 10 mg Documented By: JESSA Benzonatate (Benzonatate 100 Mg Capsule) 200 mg PO TID PRN PRN Reason: Cough Last Admin: 12/20/24 09:23 Dose: 200 mg Documented By: JESSA Calcium Carbonate (Calcium Carbonate 750 Mg Tab.Chew) 750 mg PO Q4H PRN PRN Reason: Heartburn Clopidogrel Bisulfate (Clopidogrel Bisulfate 75 Mg Tablet) 75 mg PO DAILY [facility] Last Admin: 12/20/24 09:23 Dose: 75 mg Documented By: JESSA Dextrose (Dextrose 50 % 25 Gm/50 Ml Syringe) 25 gm IVPUSH Q15M PRN; Protocol PRN Reason: per Hypoglycemia Standing Ord. Doxycycline Monohydrate (Doxycycline Monohydrate 100 Mg Capsule) 100 mg PO Q12H [facility] Last Admin: 12/20/24 11:53 Dose: 100 mg Documented By: JESSA Enoxaparin Sodium (Enoxaparin Sodium 40 Mg/0.4 Ml Syringe) 40 mg SUBCUT Q24H [facility] Last Admin: 12/19/24 14:33 Dose: 40 mg Documented By: JESSA Furosemide (Furosemide 40 Mg/4 Ml Vial) 40 mg IVPUSH DAILY [facility]; Protocol Last Admin: 12/20/24 09:23 Dose: 40 mg Documented By: JESSA Glucose (Glucose Gel 15 Gm Gel..Gram.) 15 gm PO Q15M PRN; Protocol PRN Reason: per Hypoglycemia Standing Ord. Guaifenesin/Codeine Phosphate (Guaifen/Codeine Sf 200/20/10ml 10 Ml Liquid) 10 ml PO Q4H PRN PRN Reason: Cough Last Admin: 12/20/24 09:24 Dose: 10 ml Documented By: JESSA Insulin Glargine (Insulin Glargine,Hum.Rec.Anlog 100 Unit/Ml 10 Ml Vial) 44 unit SUBCUT DAILY [facility] Insulin Human Lispro (Insulin Lispro 100 Unit/Ml 3 Ml Vial) 0 unit SUBCUT QIDACHS [facility]; Protocol Last Admin: 12/20/24 11:53 Dose: 15 unit Documented By: JESSA Losartan Potassium (Losartan Potassium 50 Mg Tablet) 100 mg PO DAILY [facility]; Protocol Last Admin: 12/20/24 09:23 Dose: 100 mg Documented By: JESSA Magnesium Hydroxide (Milk Of Magnesia 30 Ml Oral.Susp) 30 ml PO DAILY PRN PRN Reason: Constipation Melatonin (Melatonin 3 Mg Tablet) 6 mg PO BEDTIME PRN PRN Reason: Insomnia Ondansetron HCl (Ondansetron Hcl 4 Mg/2 Ml Vial) 4 mg IVPUSH Q8H PRN PRN Reason: Nausea and Vomiting Prednisone (Prednisone 20 Mg Tablet) 40 mg PO DAILY [facility]; Taper Stop: 12/24/24 08:59 Last Admin: 12/20/24 09:22 Dose: 40 mg Documented By: JESSA Senna (Sennosides 8.6 Mg Tablet) 17.2 mg PO BEDTIME [facility] Last Admin: 12/19/24 21:12 Dose: 17.2 mg Documented By: ARLEN Sodium Chloride (0.9 % Sodium Chloride Flush 3 Ml Syringe) 3 ml IVFLUSH QSHIFT [facility] Last Admin: 12/20/24 09:24 Dose: 3 ml Documented By: JESSA Labs 12/15/24 08:39 12/20/24 08:39 Labs: Laboratory Results - last 24 hr 12/19/24 12/19/24 12/20/24 16:15 20:12 07:23 Anion Gap Estim Creat Clear Calc Estimated GFR POC Glucose 381 H* 327 H 301 H Random Glucose Calcium Magnesium B-Natriuretic Peptide 12/20/24 08:39 Anion Gap 13 Estim Creat Clear Calc 37.4 Estimated GFR 37 POC Glucose Random Glucose 376 H* Calcium 8.9 Magnesium 2.1 B-Natriuretic Peptide 125 H Assessment and Plan (1) Hypoxia: Status: Acute Plan d6 for 84yo M with HFpEF, HTN, CAD s/p CABG, and DM2 presenting with fever, chills, dyspnea, and cough; admitted for hypoxia due to rhinovirus infection and CHF exacerbation AHRF - weaned off O2 rhinovirus infection with reactive airways disease - was started on high-dose IV steroids though no hx of chronic lung disease; will change to prednisone and taper rapidly acute-chronic HFpEF [TTE 07/04/24: Low normal LV ejection fraction at 50-55% with mild-to moderate LVH with grade 2 diastolic dysfunction] - net negative 5.7L and now appears dry; hold diuresis PETER - probably from excess diuresis; will hold IV furosemide and recheck BMP in AM CAD - continue clopidogrel HTN - continue losartan + amlodipine DM2 with steroid-induced hyperglycemia - basal-bolus insulin; increase doses and decrease steroids as above VTE ppx - enoxaparin dispo - PT eval: home with [facility] In my clinical judgment, the patient requires continued inpatient hospitalization for the following reasons: PETER Total time managing care of this patient today: 35 minutes. Quality Stroke Does the patient have a stroke diagnosis?: No VTE Prior VTE?: No VTE Risk Level:: Medical - moderate - high VTE Device Contraindication: Treatment Not Indicated VTE Drug Contraindication: N/A - Med Ordered
[2024-12-20 13:18] LABS: Glucose, Whole Blood 364 mg/dL (60-115)
[2024-12-20] MEDS: Enoxaparin Sodium 40 MG/0.4 ML SYRINGE SUBCUT (13:41)
[2024-12-20 15:37] VITALS: BP 121/62; PULSE 65; RESP 18; TEMP 36.5; O2SAT 94
[2024-12-20 16:27] LABS: Glucose, Whole Blood 281 mg/dL (60-115)
[2024-12-20 19:52] VITALS: BP 119/66; PULSE 52; RESP 18; TEMP 36.5; O2SAT 94
[2024-12-20] MEDS: Sennosides 8.6 MG TABLET 17.2 MG PO (21:16)
[2024-12-20] MEDS: Melatonin 3 MG TABLET 6 MG PO (23:25)
[2024-12-20 23:28] VITALS: O2SAT 96
--- NOTE | 2024-12-21 | PC.NURSE ---
pt's blood sugar at HS was 266, number did not come through to [employer] but this RN verified it on POC handheld. pt received 9 units of insulin per sliding scale order.
[2024-12-21 03:35] VITALS: BP 112/64; PULSE 64; RESP 18; TEMP 36.6; O2SAT 94
[2024-12-21 04:49] LABS: Glucose, Whole Blood 266 mg/dL (60-115)
[2024-12-21 05:20] VITALS: BMI 33.9
[2024-12-21 06:24] LABS: Anion Gap 12 (12-20); Blood Urea Nitrogen 56 mg/dL (9-16); Calcium 8.8 mg/dL (8.4-10.2); Carbon Dioxide 30 mmol/L (22-29); Chloride 101 mmol/L (96-108); Creatinine Clr Calc Pharmacy 39.1; Estimated Glomerular Filt Rate 39; Glucose Random 108 mg/dL (60-115); Potassium 3.6 mmol/L (3.3-5.1); Sodium 139 mmol/L (135-145)
[2024-12-21 07:23] VITALS: BP 133/65; PULSE 63; RESP 16; TEMP 36.2; O2SAT 93
[2024-12-21 07:56] LABS: Glucose, Whole Blood 111 mg/dL (60-115)
[2024-12-21] MEDS: Losartan Potassium 50 MG TABLET 100 MG PO (08:44)
[2024-12-21] MEDS: predniSONE 20 MG TABLET 10 MG PO (08:44)
[2024-12-21] MEDS: Insulin Glargine,Hum.rec.anlog 100 UNIT/ML 10 ML VIAL 44 UNIT SUBCUT (08:44)
[2024-12-21] MEDS: amLODIPine Besylate 10 MG TABLET PO (08:44)
[2024-12-21] MEDS: Clopidogrel Bisulfate 75 MG TABLET PO (08:44)
[2024-12-21] MEDS: Benzonatate 100 MG CAPSULE 200 MG PO (08:45)
[2024-12-21] MEDS: 0.9 % Sodium Chloride Flush 3 ML SYRINGE IVFLUSH ×2 (08:46→18:19)
--- NOTE | 2024-12-21 09:40 | HO.PM.IMPN ---
Subjective Subjective Date of Service: 12/21/24 Interval History: coughing a lot and gets short of breath but not hypoxic no chest pain Review of Systems Review of Systems: Yes all other systems are reviewed and are negative Physical Exam Vital Signs: Vital Signs: Last Vital Signs Temp 97.2 F 12/21/24 07:23 Pulse 63 12/21/24 07:23 Resp 16 12/21/24 07:23 BP 133/65 12/21/24 07:23 Pulse Ox 93 12/21/24 07:23 O2 Del Method Room Air 12/21/24 07:23 O2 Flow Rate 2 12/20/24 07:59 Oxygen Flow Rate 2 12/15/24 08:15 BMI result Body Mass Index 33.9 Gen: in no acute distress HEENT: sclera anicteric, moist mucus membranes Neck: supple Lungs: a few expiratory rhonchi and wheezes Heart: regular rate and rhythm, no murmurs Abd: soft, non-tender, non-distended Ext: no edema Skin: warm/well-perfused Neuro: alert and oriented x3, no focal findings Psych: appropriate affect Objective Data Active Medications Acetaminophen (Acetaminophen 325 Mg Tablet) 650 mg PO Q6H PRN PRN Reason: Pain, Mild 1-3,fever,headache Albuterol/Ipratropium (Albuterol/Iprat 2.5/0.5mg 3 Ml Ampul.Neb) 3 ml INHALE RQ4H WHILE AWAKE PRN PRN Reason: Shortness of Breath/Wheezing Amlodipine Besylate (Amlodipine Besylate 10 Mg Tablet) 10 mg PO DAILY COUNT [facility]CLUD[facility]; Protocol Last Admin: 12/21/24 08:44 Dose: 10 mg Documented By: CHARLIE Benzonatate (Benzonatate 100 Mg Capsule) 200 mg PO TID PRN PRN Reason: Cough Last Admin: 12/21/24 08:45 Dose: 200 mg Documented By: CHARLIE Calcium Carbonate (Calcium Carbonate 750 Mg Tab.Chew) 750 mg PO Q4H PRN PRN Reason: Heartburn Clopidogrel Bisulfate (Clopidogrel Bisulfate 75 Mg Tablet) 75 mg PO DAILY COUNT INCLUDES [facility] Last Admin: 12/21/24 08:44 Dose: 75 mg Documented By: CHARLIE Dextrose (Dextrose 50 % 25 Gm/50 Ml Syringe) 25 gm IVPUSH Q15M PRN; Protocol PRN Reason: per Hypoglycemia Standing Ord. Enoxaparin Sodium (Enoxaparin Sodium 40 Mg/0.4 Ml Syringe) 40 mg SUBCUT Q24H COUNT INCLUDES THE [facility] Last Admin: 12/20/24 13:41 Dose: 40 mg Documented By: JESSA Furosemide (Furosemide 40 Mg/4 Ml Vial) 40 mg IVPUSH DAILY COUNT [facility]CLUDES THE [facility]; Protocol Last Admin: 12/20/24 09:23 Dose: 40 mg Documented By: JESSA Glucose (Glucose Gel 15 Gm Gel..Gram.) 15 gm PO Q15M PRN; Protocol PRN Reason: per Hypoglycemia Standing Ord. Insulin Glargine (Insulin Glargine,Hum.Rec.Anlog 100 Unit/Ml 10 Ml Vial) 44 unit SUBCUT DAILY COUNT [facility]CLUDES THE [facility] Last Admin: 12/21/24 08:44 Dose: 44 unit Documented By: CHARLIE Insulin Human Lispro (Insulin Lispro 100 Unit/Ml 3 Ml Vial) 0 unit SUBCUT QIDACHS COUNT INCLUDES THE [facility]; Protocol Last Admin: 12/21/24 08:06 Dose: Not Given Documented By: CHARLIE Non-Admin Reason: No Insulin Coverage Losartan Potassium (Losartan Potassium 50 Mg Tablet) 100 mg PO DAILY COUNT [facility]CLUDES THE [facility]; Protocol Last Admin: 12/21/24 08:44 Dose: 100 mg Documented By: CHARLIE Magnesium Hydroxide (Milk Of Magnesia 30 Ml Oral.Susp) 30 ml PO DAILY PRN PRN Reason: Constipation Melatonin (Melatonin 3 Mg Tablet) 6 mg PO BEDTIME PRN PRN Reason: Insomnia Last Admin: 12/20/24 23:25 Dose: 6 mg Documented By: BHARTI Ondansetron HCl (Ondansetron Hcl 4 Mg/2 Ml Vial) 4 mg IVPUSH Q8H PRN PRN Reason: Nausea and Vomiting Prednisone (Prednisone 20 Mg Tablet) 30 mg PO DAILY COUNT [facility]CLUDES [facility]; Taper Stop: 12/24/24 08:59 Last Admin: 12/21/24 08:44 Dose: 30 mg Documented By: CHARLIE Senna (Sennosides 8.6 Mg Tablet) 17.2 mg PO BEDTIME COUNT INCLUDES [facility] Last Admin: 12/20/24 21:16 Dose: 17.2 mg Documented By: BHARTI Sodium Chloride (0.9 % Sodium Chloride Flush 3 Ml Syringe) 3 ml IVFLUSH QSHIFT COUNT INCLUDES THE [facility] Last Admin: 12/21/24 08:46 Dose: 3 ml Documented By: CHARLIE Labs 12/15/24 08:39 12/21/24 05:37 Labs: Laboratory Results - last 24 hr 12/20/24 12/20/24 12/20/24 08:39 11:35 16:12 Hold Purple Top Anion Gap 13 Estim Creat Clear Calc 37.4 Estimated GFR 37 POC Glucose 364 H* 281 H Random Glucose 376 H* Calcium 8.9 Magnesium 2.1 B-Natriuretic Peptide 125 H 12/20/24 12/21/24 12/21/24 20:09 05:37 07:22 Hold Purple Top SEE NOTE Anion Gap 12 Estim Creat Clear Calc 39.1 Estimated GFR 39 POC Glucose 266 H 111 Random Glucose 108 Calcium 8.8 Magnesium B-Natriuretic Peptide Assessment and Plan (1) Hypoxia: Status: Acute Plan d for 84yo M with HFpEF, HTN, CAD s/p CABG, and DM2 presenting with fever, chills, dyspnea, and cough; admitted for hypoxia due to rhinovirus infection and CHF exacerbation AHRF - weaned off O2 rhinovirus infection with reactive airways disease - was started on high-dose IV steroids though no hx of chronic lung disease; rapid prednisone taper 12/20-12/24 acute-chronic HFpEF [TTE 07/04/24: Low normal LV ejection fraction at 50-55% with mild-to moderate LVH with grade 2 diastolic dysfunction] - net negative 6.9L and now appears dry; continue to hold diuresis PETER - probably from excess diuresis; continue to hold furosemide and recheck BMP in AM CAD - continue clopidogrel HTN - continue losartan + amlodipine DM2 with steroid-induced hyperglycemia - basal-bolus insulin; resume prior dosing VTE ppx - enoxaparin dispo - PT eval: home with VNA In my clinical judgment, the patient requires continued inpatient hospitalization for the following reasons: PETER Total time managing care of this patient today: 35 minutes. Quality Stroke Does the patient have a stroke diagnosis?: No VTE Prior VTE?: No VTE Risk Level:: Medical - moderate - high VTE Device Contraindication: Treatment Not Indicated VTE Drug Contraindication: N/A - Med Ordered
[2024-12-21 11:21] LABS: Glucose, Whole Blood 206 mg/dL (60-115)
[2024-12-21] MEDS: Insulin Lispro 100 UNIT/ML 3 ML VIAL SUBCUT ×3 (12:45→21:16)
[2024-12-21] MEDS: Enoxaparin Sodium 40 MG/0.4 ML SYRINGE SUBCUT (13:51)
--- NOTE | 2024-12-21 14:47 | MHC.CM.PN ---
Addendum entered by Gretel Doshi 12/21/24 14:54: MAHI FROM [facility] CALLED FOR AN UPDATE ON PT. Original Note: EMR REVIEWED AND PER MD ROUNDS, PT IS NOT MEDICALLY CLEARED FOR DC HOME (PETER) CLINICAL PPW FAXED TO MAHI AT THE [place] FOR AUTH FOR HOME SERVICES WITH [facility]. AWAITING AUTH VERIFICATION. CM WILL CONTINUE TO FOLLOW FOR ANY CHANGE TO DC PLAN/NEEDS.
[2024-12-21 14:56] VITALS: BP 101/56; PULSE 58; RESP 18; TEMP 36.8; O2SAT 94
[2024-12-21 19:24] VITALS: BP 120/60; PULSE 51; RESP 17; TEMP 36.5; O2SAT 95
[2024-12-21] MEDS: Sennosides 8.6 MG TABLET 17.2 MG PO (21:16)
--- NOTE | 2024-12-22 | ECG_ITS ---
Test Reason : tachy +_ b rady Blood Pressure : */* mmHG Vent. Rate : 66 BPM Atrial Rate : 66 BPM P-R Int : 174 ms QRS Dur : 98 ms QT Int : 444 ms P-R-T Axes : 71 -46 74 degrees QTcB Int : 465 ms Normal sinus rhythm Left axis deviation Anteroseptal infarct (cited on or before 02-Jul-2024) Abnormal ECG When compared with ECG of 15-Dec-2024 08:24, No significant change was found Referred By: Dax Milan Electronically Signed By: SHYANNE PRADO MD
[2024-12-22] MEDS: 0.9 % Sodium Chloride Flush 3 ML SYRINGE IVFLUSH ×4 (00:04→21:37)
[2024-12-22] MEDS: Benzonatate 100 MG CAPSULE 200 MG PO (01:52)
[2024-12-22 02:54] VITALS: BP 129/58; PULSE 56; RESP 18; TEMP 36.4; O2SAT 96
[2024-12-22] MEDS: guaiFEN/Codeine SF 200/20/10ML 10 ML LIQUID 5 ML PO ×2 (03:43→21:44)
[2024-12-22 04:22] LABS: Glucose, Whole Blood 272 mg/dL (60-115)
[2024-12-22 04:22] LABS: Glucose, Whole Blood 332 mg/dL (60-115)
[2024-12-22 04:22] LABS: Glucose, Whole Blood 272 mg/dL (60-115)
[2024-12-22 07:39] VITALS: BP 129/61; PULSE 67; RESP 18; TEMP 36.1; O2SAT 96
[2024-12-22 08:10] LABS: Glucose, Whole Blood 149 mg/dL (60-115)
[2024-12-22] MEDS: Clopidogrel Bisulfate 75 MG TABLET PO (09:57)
[2024-12-22] MEDS: Losartan Potassium 50 MG TABLET 100 MG PO (09:57)
[2024-12-22] MEDS: predniSONE 20 MG TABLET 10 MG PO (09:57)
[2024-12-22] MEDS: amLODIPine Besylate 10 MG TABLET PO (09:57)
[2024-12-22] MEDS: Insulin Glargine,Hum.rec.anlog 100 UNIT/ML 10 ML VIAL 40 UNIT SUBCUT (09:58)
[2024-12-22 11:02] LABS: Anion Gap 11 (12-20); Blood Urea Nitrogen 58 mg/dL (9-16); Calcium 8.4 mg/dL (8.4-10.2); Carbon Dioxide 27 mmol/L (22-29); Chloride 102 mmol/L (96-108); Creatinine Clr Calc Pharmacy 42.3; Estimated Glomerular Filt Rate 42; Glucose Random 217 mg/dL (60-115); Potassium 3.4 mmol/L (3.3-5.1); Sodium 137 mmol/L (135-145)
--- NOTE | 2024-12-22 11:52 | PM.DS ---
DS: Providers Provider Date of Service: 12/22/24 Date of admission: 12/15/24 13:26 Date of discharge: 12/22/24 Primary care physician: SYED Rubi DS: Diagnosis Discharge Diagnosis (1) Hypoxia: Status: Acute (2) Rhinovirus infection: Status: Acute (3) Acute kidney failure: Status: Acute (4) Congestive heart failure: Status: Acute (5) Acute on chronic heart failure with preserved ejection fraction (HFpEF): Status: Acute DS: Summary Hospital Course Hospital Course: From the history and physical by the admitting hospitalist, SYED Tate, 12/15/24: Pt is an 84-year-old female with a PMH significant for HFpEF, HTN, CAD s/p CABG 2020, and insulin-dependent type 2 diabetes?who presents to the ED with?fever, chills, SOB, and cough for the past few days, significantly worsened last night and this morning. Cough has been nonproductive. Denies sick contacts. Overall pt is a vague historian, reports increased lower leg edema though unsure for how long, possibly 3-4 weeks. Pt denies any significant respiratory conditions, though he thinks that he has a ?little bit? of COPD. Not on home inhalers. No chest pain/pressure, palpitations. Denies nausea, vomiting, abdominal pain. No changes to bowel or bladder habits. Reports compliance with home medications. In the ED pt was tachypneic up to 25 and hypoxic as low as 88% on RA. Labs were significant for mildly elevated BNP of 106 and testing positive for rhino virus. No leukocytosis. Stable H&H. No significant electrolyte abnormalities. Renal function WNL. Hepatic function WNL. Troponin WNL. Procalcitonin negative at 0.04. CXR showed no acute airspace disease. EKG demonstrated normal sinus rhythm without evidence of ST elevations or depressions. Pt was treated with furosemide, DuoNebs, Solu-Medrol and benzonatate. Pt will be admitted to the hospital for treatment and further evaluation of acute hypoxic respiratory failure in the setting of rhino virus and CHF exacerbation. 84yo M with HFpEF, HTN, CAD s/p CABG, and DM2 presenting with fever, chills, dyspnea, and cough; admitted for hypoxia due to rhinovirus infection and CHF exacerbation. Hospital course by problem: AHRF - weaned off O2 and was off O2 for 48h at the time of discharge rhinovirus infection with reactive airways disease - was started on high-dose IV steroids though no hx of chronic lung disease; transitioned to prednisone taper and discharged on 4 more days of prednisone and as-needed albuterol inhaler. To consider outpatient PFTs through primary care. acute-chronic HFpEF [TTE 07/04/24: Low normal LV ejection fraction at 50-55% with mild-to moderate LVH with grade 2 diastolic dysfunction] - diuresed negative 6.2L with IV furosemide PETER - probably from excess diuresis; improved after holding diuresis; resumed PO furosemide upon discharge and recheck BMP in 1 week He was discharged home with [facility]NA services for home PT. Time Attestation Discharge Coordination Time (in mins): 35 Quality: Safe Use of Opioids Does Pt have an Active Cancer Diagnosis on the Problem List?: No Quality: Stroke Does the patient have a stroke diagnosis?: No Physical Exam Vital Signs: Vital Signs: Last Vital Signs Temp 97.0 F 12/22/24 07:39 Pulse 67 12/22/24 07:39 Resp 18 12/22/24 07:39 BP 129/61 12/22/24 07:39 Pulse Ox 96 12/22/24 07:39 O2 Del Method Room Air 12/22/24 07:39 O2 Flow Rate 2 12/20/24 07:59 Oxygen Flow Rate 2 12/15/24 08:15 BMI result Body Mass Index 33.9 Gen: in no acute distress HEENT: sclera anicteric, moist mucus membranes Neck: supple Lungs: diminished Heart: regular rate and rhythm, no murmurs Abd: soft, non-tender, non-distended Ext: no edema Skin: warm/well-perfused Neuro: alert and oriented x3, no focal findings Psych: appropriate affect DS: Data Data Completed and Pending Completed studies during hospitalization [Text1]: Laboratory Results WBC 9.5 X10*3/uL (4.8-10.8) 12/15/24 08:39 RBC 5.18 X10*6/uL (4.60-5.80) 12/15/24 08:39 Hgb 13.9 g/dl (14.0-18.0) L 12/15/24 08:39 Hct 41.5 % (42.0-52.0) L 12/15/24 08:39 MCV 80.1 fL (80.0-98.0) 12/15/24 08:39 MCH 26.8 pg (27.0-33.0) L 12/15/24 08:39 MCHC 33.5 g/dl (31.0-36.0) 12/15/24 08:39 RDW 13.6 % (11.0-16.0) 12/15/24 08:39 Plt Count 228 X10*3/uL (160-400) 12/15/24 08:39 MPV 10.3 fL (9.4-12.4) 12/15/24 08:39 Immature Gran % (Auto) 0.4 % (0.0-0.4) 12/15/24 08:39 Neut % (Auto) 63.6 % (45-73) 12/15/24 08:39 Lymph % (Auto) 19.3 % (20-40) L 12/15/24 08:39 Long % (Auto) 9.7 % (2-11) 12/15/24 08:39 Eos % (Auto) 6.1 % (0-4) H 12/15/24 08:39 Baso % (Auto) 0.9 % (0-2) 12/15/24 08:39 Lymph # (Auto) 1.8 X10*3/uL (1.2-4.9) 12/15/24 08:39 Long # (Auto) 0.9 X10*3/uL (0.1-1.2) 12/15/24 08:39 Eos # (Auto) 0.6 X10*3/uL (0.0-0.4) H 12/15/24 08:39 Baso # (Auto) 0.1 X10*3/uL (0.0-0.2) 12/15/24 08:39 Abs Immat Gran (auto) 0.04 X10*3/uL (0.00-0.03) H 12/15/24 08:39 Absolute Neuts (auto) 6.0 x10*3/uL (2.0-8.3) 12/15/24 08:39 Absolute Nucleated RBC 0.000 X10*3/uL (0.0-0.012) 12/15/24 08:39 Nucleated RBC % (auto) 0.0 /100WBC (0.0-0.2) 12/15/24 08:39 Hold Purple Top SEE NOTE 12/21/24 05:37 Sodium 137 mmol/L (135-145) 12/22/24 09:52 Potassium 3.4 mmol/L (3.3-5.1) 12/22/24 09:52 Chloride 102 mmol/L (96-108) 12/22/24 09:52 Carbon Dioxide 27 mmol/L (22-29) 12/22/24 09:52 Anion Gap 11 (12-20) L 12/22/24 09:52 BUN 58 mg/dL (9-16) H 12/22/24 09:52 Creatinine 1.57 mg/dL (0.5-1.4) H 12/22/24 09:52 Estim Creat Clear Calc 42.3 12/22/24 09:52 Estimated GFR 42 12/22/24 09:52 POC Glucose 149 mg/dL (60-115) H 12/22/24 07:42 Random Glucose 217 mg/dL (60-115) H 12/22/24 09:52 Calcium 8.4 mg/dL (8.4-10.2) 12/22/24 09:52 Magnesium 2.1 mg/dL (1.6-2.6) 12/20/24 08:39 Total Bilirubin 0.6 mg/dL (0.0-1.0) 12/15/24 08:39 Direct Bilirubin 0.2 mg/dL (0.0-0.5) 12/15/24 08:39 AST 22 U/L (5-37) 12/15/24 08:39 ALT 19 U/L (0-40) 12/15/24 08:39 Alkaline Phosphatase 100 U/L (39-117) 12/15/24 08:39 Troponin I High Sens 23.7 ng/L (<3.5-35.0) D 12/15/24 08:39 C-Reactive Protein 0.25 mg/dL (< or = 0.50) 12/15/24 08:39 B-Natriuretic Peptide 125 pg/mL (<100) H 12/20/24 08:39 Total Protein 7.5 g/dL (6.5-8.0) 12/15/24 08:39 Albumin 3.9 g/dL (3.5-5.0) 12/15/24 08:39 Lipase 15 U/L (8-78) 12/15/24 08:39 Procalcitonin 0.04 ng/mL 12/15/24 08:39 Respiratory Panel [place]ellar See Note 12/15/24 09:57 Adenovirus (Rapid PCR) Not Detected (Not Detect.) 12/15/24 09:57 B.pert (TEM-PCR) Not Detected (Not Detect.) 12/15/24 09:57 B.parapertussis DNA PCR Not Detected (Not Detect.) 12/15/24 09:57 C. pneumoniae DNA (PCR) Not Detected (Not Detect.) 12/15/24 09:57 Coronavirus OC43 (PCR) Not Detected (Not Detect.) 12/15/24 09:57 Coronavirus HKU1 (PCR) Not Detected (Not Detect.) 12/15/24 09:57 Coronavirus 229E (PCR) Not Detected (Not Detect.) 12/15/24 09:57 Coronavirus NL63 (PCR) Not Detected (Not Detect.) 12/15/24 09:57 Human Metapneumovir PCR Not Detected (Not Detect.) 12/15/24 09:57 Influenza A (RT-PCR) Not Detected (Not Detect.) 12/15/24 09:57 Influenza A (H1) PCR Not Detected (Not Detect.) 12/15/24 09:57 Influ A (H1/09) PCR Not Detected (Not Detect.) 12/15/24 09:57 Influenza A (H3) PCR Not Detected (Not Detect.) 12/15/24 09:57 Influenza Type A (PCR) NEGATIVE (Negative) 12/15/24 08:39 Influenza B (RT-PCR) Not Detected (Not Detect.) 12/15/24 09:57 Influenza Type B (PCR) NEGATIVE (Negative) 12/15/24 08:39 M. pneumoniae (PCR) Not Detected (Not Detect.) 12/15/24 09:57 Parainfluenza 1 (PCR) Not Detected (Not Detect.) 12/15/24 09:57 Parainfluenza 2 (PCR) Not Detected (Not Detect.) 12/15/24 09:57 Parainfluenza 3 (PCR) Not Detected (Not Detect.) 12/15/24 09:57 Parainfluenza 4 (PCR) Not Detected (Not Detect.) 12/15/24 09:57 RSV (PCR) Not Detected (Not Detect.) 12/15/24 09:57 RSV RNA Qual (PCR) NEGATIVE (Negative) 12/15/24 08:39 Entero/Rhino (PCR) Detected (Not Detect.) A 12/15/24 09:57 SARS-CoV-2 RNA (RT-PCR) Not Detected (Not Detect.) 12/15/24 09:57 Impressions Chest X-Ray 12/15/24 08:19 IMPRESSION: No acute airspace disease. Stable chest. Electronically signed by: Jovanny Horton MD 12/15/2024 09:15 AM EDT Discharge Plan Discharge Anticipated Discharge Date/Time: 12/22/24 11:44 Patient Disposition: Home Health Service Discharge Diagnosis: hypoxia rhinovirus infection with reactive airways disease CHF exacerbation acute kidney injury Referrals: Forrest Marin PA [Primary Care Provider] - 1 Week Discharge Medications: New prednisone 10 mg tablet 10 mg PO DIRECTED Qty: 6 0RF Rx Instructions: 20 mg daily x 2 days, then 10 mg daily x 2 days albuterol sulfate 90 mcg/actuation HFA aerosol inhaler 2 puff inhalation Q4-6H PRN (Reason: shortness of breath or wheezing) Qty: 8.5 0RF Rx Instructions: use with spacer device Continued sennosides [senna] 8.6 mg Tablet 17.2 mg PO BEDTIME clopidogrel 75 mg Tablet 75 mg PO DAILY amlodipine 10 mg Tablet 10 mg PO DAILY losartan 100 mg Tablet 100 mg PO DAILY insulin glargine-yfgn 100 unit/mL (3 mL) Insulin Pen 40 unit SUBCUT DAILY furosemide 40 mg Tablet 40 mg PO DAILY Qty: 30 0RF Discharge Orders: Discharge Order (Routine); Ordered 12/22/24 Ordered By: Dax Milan Diet: Advance to usual diet Activity on Discharge: As tolerated Stand Alone Forms: Patient Portal Discharge page Print Language: Samoan Other Ambulatory Orders: Basic Metabolic Panel (Routine) Timeframe: 1 Week Facility: [facility] - Location: Laboratory Ordered By: Dax Milan Care Plan Goals: recovery from illness Health Concerns: hypoxia rhinovirus infection with reactive airways disease CHF exacerbation acute kidney injury Plan of Treatment: prednisone 20 mg daily x 2 days then 10 mg daily x 2 days albuterol inhaler for shortness of breath/wheeze Low-sodium diet: less than 2000 mg of sodium daily. Weigh yourself daily and call your doctor if your weight goes up by more than 3 lb/day or 5 lb/week. furosemide 40 mg once daily check BMP in 1 week Please follow up with your primary care doctor within 1 week. Return to the hospital if you experience recurrent or worsening symptoms. Assessment: See Discharge Summary.
--- NOTE | 2024-12-22 11:57 | W.MHC.F2F ---
Service Date Service Date: 12/22/24 Encounter Date of encounter: 12/22/24 Reasons for Services Signs and symptoms assessed: see PT evaluation 12/20-12/22 Reason for physical therapy: home safety and mobility, therapeutic exercises, gait/transfer training, assess need for DME, ADL training and energy conservation Overseeing Care: Forrest Marin Homebound: Leaving the home is medically contraindicated at this time without the asist of a device and/or another person due th the listed conditions above and below. Reason homebound: unsteady gait / fall risk and weakness related to hospital stay Certification: Based on the above findings, I certify that this patient is confined to the home and needs intermittent correction care, physical therapy and/or speech therapy, or continues to need occupational therapy. The patient is under my care, and I have initiated the establishment of the plan of care. The patient will be followed by a physician who will periodically review the plan of care. Time Spent With Patient Time: Total time managing care of this patient today ____ minutes.
--- NOTE | 2024-12-22 12:00 | P.PNIM_ITS ---
Subjective Subjective Date of Service: 12/22/24 Interval History: PT now recommends STR shortness of breath improved, off O2 for 48h Review of Systems Review of Systems: Yes all other systems are reviewed and are negative Physical Exam 2 Vital Signs: Vital Signs: Last Vital Signs Temp 97.0 F 12/22/24 07:39 Pulse 67 12/22/24 07:39 Resp 18 12/22/24 07:39 BP 129/61 12/22/24 07:39 Pulse Ox 96 12/22/24 07:39 O2 Del Method Room Air 12/22/24 07:39 O2 Flow Rate 2 12/20/24 07:59 Oxygen Flow Rate 2 12/15/24 08:15 BMI result Body Mass Index 33.9 Gen: in no acute distress HEENT: sclera anicteric, moist mucus membranes Neck: supple Lungs: diminished Heart: regular rate and rhythm, no murmurs Abd: soft, non-tender, non-distended Ext: no edema Skin: warm/well-perfused Neuro: alert and oriented x3, no focal findings Psych: appropriate affect Objective Data Active Medications Acetaminophen (Acetaminophen 325 Mg Tablet) 650 mg PO Q6H PRN PRN Reason: Pain, Mild 1-3,fever,headache Albuterol/Ipratropium (Albuterol/Iprat 2.5/0.5mg 3 Ml Ampul.Neb) 3 ml INHALE RQ4H WHILE AWAKE PRN PRN Reason: Shortness of Breath/Wheezing Amlodipine Besylate (Amlodipine Besylate 10 Mg Tablet) 10 mg PO DAILY [facility]; Protocol Last Admin: 12/22/24 09:57 Dose: 10 mg Documented By: SETH Benzonatate (Benzonatate 100 Mg Capsule) 200 mg PO TID PRN PRN Reason: Cough Last Admin: 12/22/24 01:52 Dose: 200 mg Documented By: MATTHEW Calcium Carbonate (Calcium Carbonate 750 Mg Tab.Chew) 750 mg PO Q4H PRN PRN Reason: Heartburn Clopidogrel Bisulfate (Clopidogrel Bisulfate 75 Mg Tablet) 75 mg PO DAILY [facility] Last Admin: 12/22/24 09:57 Dose: 75 mg Documented By: SETH Dextrose (Dextrose 50 % 25 Gm/50 Ml Syringe) 25 gm IVPUSH Q15M PRN; Protocol PRN Reason: per Hypoglycemia Standing Ord. Enoxaparin Sodium (Enoxaparin Sodium 40 Mg/0.4 Ml Syringe) 40 mg SUBCUT Q24H [facility] Last Admin: 12/21/24 13:51 Dose: 40 mg Documented By: CHARLIE Furosemide (Furosemide 40 Mg/4 Ml Vial) 40 mg IVPUSH DAILY [facility]; Protocol Last Admin: 12/20/24 09:23 Dose: 40 mg Documented By: JESSA Glucose (Glucose Gel 15 Gm Gel..Gram.) 15 gm PO Q15M PRN; Protocol PRN Reason: per Hypoglycemia Standing Ord. Guaifenesin/Codeine Phosphate (Guaifen/Codeine Sf 200/20/10ml 10 Ml Liquid) 5 ml PO Q6H PRN PRN Reason: Cough Last Admin: 12/22/24 03:43 Dose: 5 ml Documented By: MATTHEW Insulin Glargine (Insulin Glargine,Hum.Rec.Anlog 100 Unit/Ml 10 Ml Vial) 40 unit SUBCUT DAILY [facility] Last Admin: 12/22/24 09:58 Dose: 40 unit Documented By: SETH Insulin Human Lispro (Insulin Lispro 100 Unit/Ml 3 Ml Vial) 0 unit SUBCUT QIDACHS [facility]; Protocol Last Admin: 12/22/24 08:25 Dose: Not Given Documented By: SETH Non-Admin Reason: No Insulin Coverage Losartan Potassium (Losartan Potassium 50 Mg Tablet) 100 mg PO DAILY [facility]; Protocol Last Admin: 12/22/24 09:57 Dose: 100 mg Documented By: SETH Magnesium Hydroxide (Milk Of Magnesia 30 Ml Oral.Susp) 30 ml PO DAILY PRN PRN Reason: Constipation Melatonin (Melatonin 3 Mg Tablet) 6 mg PO BEDTIME PRN PRN Reason: Insomnia Last Admin: 12/20/24 23:25 Dose: 6 mg Documented By: BHARTI Ondansetron HCl (Ondansetron Hcl 4 Mg/2 Ml Vial) 4 mg IVPUSH Q8H PRN PRN Reason: Nausea and Vomiting Prednisone (Prednisone 20 Mg Tablet) 20 mg PO DAILY [facility]; Taper Stop: 12/24/24 08:59 Last Admin: 12/22/24 09:57 Dose: 20 mg Documented By: SETH Senna (Sennosides 8.6 Mg Tablet) 17.2 mg PO BEDTIME [facility] Last Admin: 12/21/24 21:16 Dose: 17.2 mg Documented By: MATTHEW Sodium Chloride (0.9 % Sodium Chloride Flush 3 Ml Syringe) 3 ml IVFLUSH QSHIFT [facility] Last Admin: 12/22/24 09:58 Dose: 3 ml Documented By: SETH Labs 12/15/24 08:39 12/22/24 09:52 Labs: Laboratory Results - last 24 hr 12/21/24 12/21/24 12/21/24 16:01 18:14 20:09 Anion Gap Estim Creat Clear Calc Estimated GFR POC Glucose 272 H 332 H 272 H Random Glucose Calcium 12/22/24 12/22/24 07:42 09:52 Anion Gap 11 L Estim Creat Clear Calc 42.3 Estimated GFR 42 POC Glucose 149 H Random Glucose 217 H Calcium 8.4 Assessment and Plan (1) Hypoxia: Status: Acute Plan d8 for 84yo M with HFpEF, HTN, CAD s/p CABG, and DM2 presenting with fever, chills, dyspnea, and cough; admitted for hypoxia due to rhinovirus infection and CHF exacerbation AHRF - weaned off O2 rhinovirus infection with reactive airways disease - was started on high-dose IV steroids though no hx of chronic lung disease; prednisone taper acute-chronic HFpEF [TTE 07/04/24: Low normal LV ejection fraction at 50-55% with mild-to moderate LVH with grade 2 diastolic dysfunction] - net negative 6.2L; resume PO furosemide PETER - probably from excess diuresis; improved; resume PO furosemide; recheck BMP in AM CAD - continue clopidogrel HTN - continue losartan + amlodipine DM2 with steroid-induced hyperglycemia - basal-bolus insulin VTE ppx - enoxaparin dispo - PT eval: STR now recommended In my clinical judgment, the patient requires continued inpatient hospitalization for the following reasons: PETER Total time managing care of this patient today: 35 minutes. Quality Stroke Does the patient have a stroke diagnosis?: No VTE Prior VTE?: No VTE Risk Level:: Medical - moderate - high VTE Device Contraindication: Treatment Not Indicated VTE Drug Contraindication: N/A - Med Ordered
[2024-12-22 12:51] LABS: Glucose, Whole Blood 215 mg/dL (60-115)
[2024-12-22] MEDS: Enoxaparin Sodium 40 MG/0.4 ML SYRINGE SUBCUT (14:00)
--- NOTE | 2024-12-22 15:00 | MHC.CM.PN ---
DP: P.T. HAS NOW RECOMMENDED STR. PT IS AGREEABLE AND ACCEPTS BED OFFER FROM [facility]. [facility] CAN OFFER [facility]ENDING [facility]. CLINICALS FAXED TO [facility] Elizondo AUTH PROCESS BEGUN. UPDATED. CM WILL AWAIT AUTH.
[2024-12-22 15:29] VITALS: BP 116/56; PULSE 38; RESP 16; TEMP 36.2; O2SAT 96
[2024-12-22 16:41] LABS: Glucose, Whole Blood 225 mg/dL (60-115)
[2024-12-22 17:10] LABS: Magnesium 2.1 mg/dL (1.6-2.6)
[2024-12-22] MEDS: Insulin Lispro 100 UNIT/ML 3 ML VIAL SUBCUT ×2 (17:43→21:32)
[2024-12-22 19:45] VITALS: BP 113/67; PULSE 75; RESP 17; TEMP 36.4; O2SAT 97
[2024-12-22] MEDS: Sennosides 8.6 MG TABLET 17.2 MG PO (21:35)
[2024-12-22 21:57] LABS: Glucose, Whole Blood 212 mg/dL (60-115)
[2024-12-22 23:31] VITALS: BP 147/68; PULSE 60; RESP 17; TEMP 36.7; O2SAT 93
[2024-12-23 04:00] VITALS: BP 144/75; PULSE 64; RESP 17; TEMP 36.7; O2SAT 94
[2024-12-23 06:00] VITALS: BMI 32.1
[2024-12-23 07:27] VITALS: BP 120/68; PULSE 59; RESP 18; TEMP 36.8; O2SAT 95
[2024-12-23] MEDS: predniSONE 20 MG TABLET 10 MG PO (08:07)
[2024-12-23] MEDS: 0.9 % Sodium Chloride Flush 3 ML SYRINGE IVFLUSH ×2 (08:07→12:37)
[2024-12-23] MEDS: Losartan Potassium 50 MG TABLET 100 MG PO (08:07)
[2024-12-23] MEDS: amLODIPine Besylate 10 MG TABLET PO (08:07)
[2024-12-23] MEDS: Furosemide 40 MG TABLET PO (08:07)
[2024-12-23] MEDS: Clopidogrel Bisulfate 75 MG TABLET PO (08:08)
[2024-12-23] MEDS: Insulin Glargine,Hum.rec.anlog 100 UNIT/ML 10 ML VIAL 40 UNIT SUBCUT (08:08)
[2024-12-23 08:11] LABS: Anion Gap 13 (12-20); Blood Urea Nitrogen 45 mg/dL (9-16); Calcium 8.9 mg/dL (8.4-10.2); Carbon Dioxide 30 mmol/L (22-29); Chloride 102 mmol/L (96-108); Creatinine Clr Calc Pharmacy 47.1; Estimated Glomerular Filt Rate 48; Glucose Random 70 mg/dL (60-115); Magnesium 2.1 mg/dL (1.6-2.6); Potassium 3.9 mmol/L (3.3-5.1); Sodium 141 mmol/L (135-145)
[2024-12-23 08:16] LABS: Glucose, Whole Blood 80 mg/dL (60-115)
[2024-12-23 11:40] LABS: Glucose, Whole Blood 150 mg/dL (60-115)
--- NOTE | 2024-12-23 12:25 | MHC.CM.PN ---
RADHA SPOKE TO MAHI AT THE [facility], SHE CONFIRMED THEY HAVE STR AUTH SHE ARRANGED TRANSPORT [facility]IA [facility] FOR 1400 HOURS
[2024-12-23] MEDS: Enoxaparin Sodium 40 MG/0.4 ML SYRINGE SUBCUT (12:34)
--- NOTE | 2024-12-23 12:41 | PM.DS ---
DS: Providers Provider Date of Service: 12/23/24 Date of admission: 12/15/24 13:26 Date of discharge: 12/23/24 Primary care physician: SYED Rubi Consults: 12/22/24 16:53 Consult to Cardiology Routine Consulting Provider: [facility] Reason for consultation: ventricular bigeminy DS: Diagnosis Discharge Diagnosis (1) Hypoxia: Status: Acute (2) Acute on chronic heart failure with preserved ejection fraction (HFpEF): Status: Acute (3) CHF exacerbation: Status: Acute (4) Acute kidney failure: Status: Acute (5) PVCs (premature ventricular contractions): Status: Acute DS: Summary Hospital Course Hospital Course: From the history and physical by the admitting hospitalist, SYED Tate, 12/15/24: Pt is an 84-year-old female with a PMH significant for HFpEF, HTN, CAD s/p CABG 2020, and insulin-dependent type 2 diabetes?who presents to the ED with?fever, chills, SOB, and cough for the past few days, significantly worsened last night and this morning. Cough has been nonproductive. Denies sick contacts. Overall pt is a vague historian, reports increased lower leg edema though unsure for how long, possibly 3-4 weeks. Pt denies any significant respiratory conditions, though he thinks that he has a ?little bit? of COPD. Not on home inhalers. No chest pain/pressure, palpitations. Denies nausea, vomiting, abdominal pain. No changes to bowel or bladder habits. Reports compliance with home medications. In the ED pt was tachypneic up to 25 and hypoxic as low as 88% on RA. Labs were significant for mildly elevated BNP of 106 and testing positive for rhino virus. No leukocytosis. Stable H&H. No significant electrolyte abnormalities. Renal function WNL. Hepatic function WNL. Troponin WNL. Procalcitonin negative at 0.04. CXR showed no acute airspace disease. EKG demonstrated normal sinus rhythm without evidence of ST elevations or depressions. Pt was treated with furosemide, DuoNebs, Solu-Medrol and benzonatate. Pt will be admitted to the hospital for treatment and further evaluation of acute hypoxic respiratory failure in the setting of rhino virus and CHF exacerbation. 84yo M with HFpEF, HTN, CAD s/p CABG, and DM2 presenting with fever, chills, dyspnea, and cough; admitted for hypoxia due to rhinovirus infection and CHF exacerbation. Hospital course by problem: AHRF - weaned off O2 and was off O2 for 48h at the time of discharge rhinovirus infection with reactive airways disease - was started on high-dose IV steroids though no hx of chronic lung disease; transitioned to prednisone taper and discharged on 4 more days of prednisone and as-needed albuterol inhaler. To consider outpatient PFTs through primary care. acute-chronic HFpEF [TTE 07/04/24: Low normal LV ejection fraction at 50-55% with mild-to moderate LVH with grade 2 diastolic dysfunction] - diuresed negative 6.2L with IV furosemide PETER - probably from excess diuresis; improved after holding diuresis; resumed PO furosemide upon discharge and recheck BMP in 1 week frequent PVCs - he had episodes of frequent PVCs including bigeminy without any symptoms or electrolyte abnormality. Baseline HR in the 60s. He should follow up with [facility] as an outpatient. He was discharged to short-term rehabilitation. Time Attestation Discharge Coordination Time (in mins): 35 Quality: Safe Use of Opioids Does Pt have an Active Cancer Diagnosis on the Problem List?: No Quality: Stroke Does the patient have a stroke diagnosis?: No Physical Exam Vital Signs: Vital Signs: Last Vital Signs Temp 98.3 F 12/23/24 07:27 Pulse 59 12/23/24 07:27 Resp 18 12/23/24 07:27 BP 120/68 12/23/24 07:27 Pulse Ox 95 12/23/24 07:27 O2 Del Method Room Air 12/23/24 07:27 O2 Flow Rate 2 12/20/24 07:59 Oxygen Flow Rate 2 12/15/24 08:15 BMI result Body Mass Index 32.1 Gen: in no acute distress HEENT: sclera anicteric, moist mucus membranes Neck: supple Lungs: clear Heart: regular rate and rhythm, no murmurs Abd: soft, non-tender, non-distended Ext: no edema Skin: warm/well-perfused Neuro: alert and oriented x3, no focal findings Psych: appropriate affect DS: Data Data Completed and Pending Completed studies during hospitalization [Text1]: Laboratory Results WBC 9.5 X10*3/uL (4.8-10.8) 12/15/24 08:39 RBC 5.18 X10*6/uL (4.60-5.80) 12/15/24 08:39 Hgb 13.9 g/dl (14.0-18.0) L 12/15/24 08:39 Hct 41.5 % (42.0-52.0) L 12/15/24 08:39 MCV 80.1 fL (80.0-98.0) 12/15/24 08:39 MCH 26.8 pg (27.0-33.0) L 12/15/24 08:39 MCHC 33.5 g/dl (31.0-36.0) 12/15/24 08:39 RDW 13.6 % (11.0-16.0) 12/15/24 08:39 Plt Count 228 X10*3/uL (160-400) 12/15/24 08:39 MPV 10.3 fL (9.4-12.4) 12/15/24 08:39 Immature Gran % (Auto) 0.4 % (0.0-0.4) 12/15/24 08:39 Neut % (Auto) 63.6 % (45-73) 12/15/24 08:39 Lymph % (Auto) 19.3 % (20-40) L 12/15/24 08:39 [place] % (Auto) 9.7 % (2-11) 12/15/24 08:39 Eos % (Auto) 6.1 % (0-4) H 12/15/24 08:39 Baso % (Auto) 0.9 % (0-2) 12/15/24 08:39 Lymph # (Auto) 1.8 X10*3/uL (1.2-4.9) 12/15/24 08:39 [place] # (Auto) 0.9 X10*3/uL (0.1-1.2) 12/15/24 08:39 Eos # (Auto) 0.6 X10*3/uL (0.0-0.4) H 12/15/24 08:39 Baso # (Auto) 0.1 X10*3/uL (0.0-0.2) 12/15/24 08:39 Abs Immat Gran (auto) 0.04 X10*3/uL (0.00-0.03) H 12/15/24 08:39 Absolute Neuts (auto) 6.0 x10*3/uL (2.0-8.3) 12/15/24 08:39 Absolute Nucleated RBC 0.000 X10*3/uL (0.0-0.012) 12/15/24 08:39 Nucleated RBC % (auto) 0.0 /100WBC (0.0-0.2) 12/15/24 08:39 Hold Purple Top SEE NOTE 12/23/24 07:43 Sodium 141 mmol/L (135-145) 12/23/24 07:43 Potassium 3.9 mmol/L (3.3-5.1) 12/23/24 07:43 Chloride 102 mmol/L (96-108) 12/23/24 07:43 Carbon Dioxide 30 mmol/L (22-29) H 12/23/24 07:43 Anion Gap 13 (12-20) 12/23/24 07:43 BUN 45 mg/dL (9-16) H 12/23/24 07:43 Creatinine 1.41 mg/dL (0.5-1.4) H 12/23/24 07:43 Estim Creat Clear Calc 47.1 12/23/24 07:43 Estimated GFR 48 12/23/24 07:43 POC Glucose 150 mg/dL (60-115) H 12/23/24 11:32 Random Glucose 70 mg/dL (60-115) 12/23/24 07:43 Calcium 8.9 mg/dL (8.4-10.2) 12/23/24 07:43 Magnesium 2.1 mg/dL (1.6-2.6) 12/23/24 07:43 Total Bilirubin 0.6 mg/dL (0.0-1.0) 12/15/24 08:39 Direct Bilirubin 0.2 mg/dL (0.0-0.5) 12/15/24 08:39 AST 22 U/L (5-37) 12/15/24 08:39 ALT 19 U/L (0-40) 12/15/24 08:39 Alkaline Phosphatase 100 U/L (39-117) 12/15/24 08:39 Troponin I High Sens 23.7 ng/L (<3.5-35.0) D 12/15/24 08:39 C-Reactive Protein 0.25 mg/dL (< or = 0.50) 12/15/24 08:39 B-Natriuretic Peptide 125 pg/mL (<100) H 12/20/24 08:39 Total Protein 7.5 g/dL (6.5-8.0) 12/15/24 08:39 Albumin 3.9 g/dL (3.5-5.0) 12/15/24 08:39 Lipase 15 U/L (8-78) 12/15/24 08:39 Procalcitonin 0.04 ng/mL 12/15/24 08:39 Respiratory Panel [place] See Note 12/15/24 09:57 Adenovirus (Rapid PCR) Not Detected (Not Detect.) 12/15/24 09:57 B.pert (TEM-PCR) Not Detected (Not Detect.) 12/15/24 09:57 B.parapertussis DNA PCR Not Detected (Not Detect.) 12/15/24 09:57 C. pneumoniae DNA (PCR) Not Detected (Not Detect.) 12/15/24 09:57 Coronavirus OC43 (PCR) Not Detected (Not Detect.) 12/15/24 09:57 Coronavirus HKU1 (PCR) Not Detected (Not Detect.) 12/15/24 09:57 Coronavirus 229E (PCR) Not Detected (Not Detect.) 12/15/24 09:57 Coronavirus NL63 (PCR) Not Detected (Not Detect.) 12/15/24 09:57 Human Metapneumovir PCR Not Detected (Not Detect.) 12/15/24 09:57 Influenza A (RT-PCR) Not Detected (Not Detect.) 12/15/24 09:57 Influenza A (H1) PCR Not Detected (Not Detect.) 12/15/24 09:57 Influ A (H1/09) PCR Not Detected (Not Detect.) 12/15/24 09:57 Influenza A (H3) PCR Not Detected (Not Detect.) 12/15/24 09:57 Influenza Type A (PCR) NEGATIVE (Negative) 12/15/24 08:39 Influenza B (RT-PCR) Not Detected (Not Detect.) 12/15/24 09:57 Influenza Type B (PCR) NEGATIVE (Negative) 12/15/24 08:39 M. pneumoniae (PCR) Not Detected (Not Detect.) 12/15/24 09:57 Parainfluenza 1 (PCR) Not Detected (Not Detect.) 12/15/24 09:57 Parainfluenza 2 (PCR) Not Detected (Not Detect.) 12/15/24 09:57 Parainfluenza 3 (PCR) Not Detected (Not Detect.) 12/15/24 09:57 Parainfluenza 4 (PCR) Not Detected (Not Detect.) 12/15/24 09:57 RSV (PCR) Not Detected (Not Detect.) 12/15/24 09:57 RSV RNA Qual (PCR) NEGATIVE (Negative) 12/15/24 08:39 Entero/Rhino (PCR) Detected (Not Detect.) A 12/15/24 09:57 SARS-CoV-2 RNA (RT-PCR) Not Detected (Not Detect.) 12/15/24 09:57 Impressions Chest X-Ray 12/15/24 08:19 IMPRESSION: No acute airspace disease. Stable chest. Electronically signed by: Jovanny Horton MD 12/15/2024 09:15 AM EDT RP Discharge Plan Discharge Anticipated Discharge Date/Time: 12/22/24 11:44 Patient Disposition: [facility] Discharge Diagnosis: hypoxia rhinovirus infection with reactive airways disease CHF exacerbation acute kidney injury frequent PVCs Referrals: [facility] [Provider Group] - 2 Weeks [facility] [Outside] - 1 Week Forrest Marin PA [Primary Care Provider] - 1 Week Discharge Medications: New prednisone 10 mg tablet 10 mg PO DIRECTED Qty: 6 0RF Rx Instructions: 20 mg daily x 2 days, then 10 mg daily x 2 days albuterol sulfate 90 mcg/actuation HFA aerosol inhaler 2 puff inhalation Q4-6H PRN (Reason: shortness of breath or wheezing) Qty: 8.5 0RF Rx Instructions: use with spacer device Continued sennosides [senna] 8.6 mg Tablet 17.2 mg PO BEDTIME clopidogrel 75 mg Tablet 75 mg PO DAILY amlodipine 10 mg Tablet 10 mg PO DAILY losartan 100 mg Tablet 100 mg PO DAILY insulin glargine-yfgn 100 unit/mL (3 mL) Insulin Pen 40 unit SUBCUT DAILY furosemide 40 mg Tablet 40 mg PO DAILY Qty: 30 0RF Discharge Orders: Discharge Order (Routine); Ordered 12/23/24 Ordered By: Dax Milan Diet: Advance to usual diet Activity on Discharge: As tolerated Stand Alone Forms: Patient Portal Discharge page Print Language: Kuwaiti Other Ambulatory Orders: Basic Metabolic Panel (Routine) Timeframe: 1 Week Facility: [facility] - Location: Laboratory Ordered By: Dax Milan Care Plan Goals: recovery from illness Health Concerns: hypoxia rhinovirus infection with reactive airways disease CHF exacerbation acute kidney injury frequent PVCs Plan of Treatment: prednisone 20 mg daily x 2 days then 10 mg daily x 2 days albuterol inhaler for shortness of breath/wheeze Low-sodium diet: less than 2000 mg of sodium daily. Weigh yourself daily and call your doctor if your weight goes up by more than 3 lb/day or 5 lb/week. furosemide 40 mg once daily check BMP in 1 week follow up with [facility] Cardiology in 2-4 weeks Please follow up with your primary care doctor within 1 week. Return to the hospital if you experience recurrent or worsening symptoms. Assessment: See Discharge Summary.
== END 2024-12-23 14:06 | disposition skilled nursing facility (03) | DRG 291 ==
LOC: HO.ED 11:04 → HO.EDOVER 13:26 → HO.S3 15:26 → HO.IMC 12-22 19:18
PROVIDERS: Hospitalist; Admitting Provider Student in an Organized Health Care Education/Training Program; Emergency Provider Emergency Medicine; PCP Physician Assistant; Visit Provider Family Medicine
DX: I11.0 Hypertensive heart disease with heart failure (principal); I50.33 Acute on chronic diastolic (congestive) heart failure; J96.01 Acute respiratory failure with hypoxia; N17.9 Acute kidney failure, unspecified; I49.3 Ventricular premature depolarization; I25.10 Atherosclerotic heart disease of native coronary artery without angina pectoris; B97.89 Other viral agents as the cause of diseases classified elsewhere; Z79.4 Long term (current) use of insulin; Z95.1 Presence of aortocoronary bypass graft; Z79.02 Long term (current) use of antithrombotics/antiplatelets; Z79.899 Other long term (current) drug therapy
CPT/HCPCS: 0241U; 36415; 71045; 80048; 80076; 82947; 83690; 83735; 83880; 84145; 84484; 85025; 86140; 87633; 93005; 94640; 97116; 97162; 99285; J1650; J1940; J2919

== ENCOUNTER → 2024-12-15 08:18 | Outpatient (BNV) | payer OTHER, SELFPAY | PROVIDERS: Admitting Provider Student in an Organized Health Care Education/Training Program; Emergency Provider Emergency Medicine; PCP Physician Assistant; Visit Provider Internal Medicine Cardiovascular Disease | DX: I25.2 Old myocardial infarction (principal) | CPT/HCPCS: 93010 ==

== ENCOUNTER → 2024-12-15 08:19 | Outpatient (BNV) | payer OTHER, SELFPAY | PROVIDERS: Emergency Provider Emergency Medicine; PCP Physician Assistant; Visit Provider Radiology Diagnostic Radiology | DX: R05.9 Cough, unspecified (principal) | CPT/HCPCS: 71045 ==

== ENCOUNTER 2024-12-15 13:26 | Outpatient (BNV) | payer OTHER, SELFPAY | END 2024-12-22 15:40 | PROVIDERS: Admitting Provider Student in an Organized Health Care Education/Training Program; Emergency Provider Emergency Medicine; PCP Physician Assistant; Visit Provider Internal Medicine Cardiovascular Disease | DX: I25.2 Old myocardial infarction (principal) | CPT/HCPCS: 93010 ==

== ENCOUNTER → 2024-12-15 13:26 | Outpatient (BNV) | payer OTHER, SELFPAY | PROVIDERS: Admitting Provider Student in an Organized Health Care Education/Training Program; Emergency Provider Emergency Medicine; PCP Physician Assistant; Visit Provider Student in an Organized Health Care Education/Training Program | DX: R09.02 Hypoxemia (principal); I50.9 Heart failure, unspecified | CPT/HCPCS: 99223; 99232; 99233; 99239 ==

== ENCOUNTER 2024-12-23 15:02 | Emergency (ER) | payer OTHER, SELFPAY ==
--- NOTE | 2024-12-23 15:10 | ED_ITS ---
HPI - General Adult General Chief complaint: General Medical Stated complaint: No official Complaint per ems Time Seen by Provider: 12/23/24 15:09 Source: patient and EMS Mode of arrival: EMS Limitations: no limitations History of Present Illness ED Provider: juan manuel samson np HPI narrative: patient is an 84-year-old male who presents emergency department via EMS, he had a recent inpatient hospitalization here at [facility] 12/15/2024 and discharged this afternoon to [facility]. When he arrived he realized that he was not in a private room and stated that he was not going to stay there, staff at that facility ultimately advised to EMS they could not force him to do so, patient requested to come back to [facility]. He offers no physical complaints at this time. Related Data Home Medications ?Medication ?Instructions ?Recorded ?Confirmed amlodipine 10 mg tablet 10 mg PO DAILY 07/04/24 12/15/24 clopidogrel 75 mg tablet 75 mg PO DAILY 07/04/24 12/15/24 insulin glargine-yfgn 100 unit/mL 40 unit subcut DAILY 07/04/24 12/15/24 (3 mL) subcutaneous pen losartan 100 mg tablet 100 mg PO DAILY 07/04/24 12/15/24 sennosides 8.6 mg tablet (senna) 17.2 mg PO BEDTIME 07/04/24 12/15/24 Previous Rx's ?Medication ?Instructions ?Recorded albuterol sulfate 90 mcg/actuation 2 puff inhalation Q4-6H PRN 12/22/24 aerosol inhaler shortness of breath or wheezing #8.5 grams furosemide 40 mg tablet 40 mg PO DAILY #30 tabs 12/22/24 prednisone 10 mg tablet 10 mg PO DIRECTED #6 tabs 12/22/24 Allergies Allergy/AdvReac Type Severity Reaction Status Date / Time hydrochlorothiazide Allergy Unknown Unknown Verified 12/23/24 15:18 Review of Systems Review of Systems: Yes all other systems are reviewed and are negative PMFSH Past Medical History Attestation statement: The following information was validated with the patient. Source: old records reviewed Medical History Congestive heart failure Type 2 diabetes mellitus Coronary artery disease Surgical History Hx of CABG Social History Social History Household Members: Significant Other Housing: House Do you presently have visiting nurse or other home services: Yes Patient Tobacco Use Status: Tobacco use Unknown Smoked in Last 30 Days: No e-Cigarette/Vaping Use: Former Use Use of substances other than those prescribed or required for medical reasons: No Advance Directives: Yes Advance Directives on File: Yes Advance Directives Date on File: 07/07/24 Do you have a plan to hurt others: No Plan service: Yes Physical Exam ED Vital Signs: Vital Signs - 24 hr 12/23/24 15:15 12/23/24 15:36 Temperature 97.5 F Pulse Rate 45 L 65 Respiratory Rate 16 18 Blood Pressure 109/53 L Pulse Oximetry 91 L 94 Oxygen Delivery Method Room Air Room Air BMI result Body Mass Index 36.3 Appearance: Alert.?Oriented to person, place and time. No acute distress.?Normal affect. Eyes: Pupils equal, round and reactive to light.? ENT: Pharynx normal.?? Neck: Normal inspection.? Neck supple.?? CVS: Heart sounds normal. Normal heart rate and rhythm.? Pulses normal.?? Respiratory: No respiratory distress.? Lung sounds clear to auscultation bilaterally?? Skin: Skin warm and dry.? Normal skin color.? Extremities: No lower extremity edema.? Neuro: Moves all extremities spontaneously. Sensation intact bilaterally. Course Reevaluation(s) Reevaluation #1: case management has spoken directly with patient, advised of the local bed availability in his insurance, locally the only bed available to him is it at [facility] and they do not have single beds available. Options were also provided for him to return home which he declines. Plan was for patient to again be discharged to [facility] with the understanding that he will be in a room with a roommate. He verbalized understanding of this. Unfortunately, [facility], and therefore he will not have transportation to the facility until tomorrow morning. At this time he is being placed in physician observation until disposition in the morning. Time: 16:54 Medical Decision Making Medical Decision Making MDM Narrative: Patient is an 84-year-old male with past medical history of heart failure preserved EF, hypertension, CAD s/p CABG in 2020, type 2 diabetes who presents to the emergency department via EMS, upon discharged from inpatient setting this afternoon [facility] facility to find that he did not have a private room assigned to him and therefore requested transportation back to the hospitalist he did not want to be in a room with a roommate. He offers no physical complaints at this time and his physical examination is benign. I see no indication that he requires any medical workup at this time. I will involve case management for assistance with disposition planning, he had physical therapy evaluation yesterday with recommendation for short-term rehab. Differential Diagnosis Differential Diagnoses: The differential diagnosis associated with the presentation includes ( physical deconditioning, weakness, CHF) Independent Historian Clinical information obtained from an independent historian. History obtained from or confirmed by: EMS External Record Review External record reviewed: Inpatient record and Outpatient record Chronic Conditions Patient?s care impacted by: Other ( see narrative above) Discharge Plan Discharge Clinical Impression: Congestive heart failure Patient Disposition: Still a Patient Prescriptions: No Action sennosides [senna] 8.6 mg Tablet 17.2 mg PO BEDTIME clopidogrel 75 mg Tablet 75 mg PO DAILY amlodipine 10 mg Tablet 10 mg PO DAILY losartan 100 mg Tablet 100 mg PO DAILY insulin glargine-yfgn 100 unit/mL (3 mL) Insulin Pen 40 unit SUBCUT DAILY prednisone 10 mg tablet 10 mg PO DIRECTED Qty: 6 0RF Rx Instructions: 20 mg daily x 2 days, then 10 mg daily x 2 days furosemide 40 mg Tablet 40 mg PO DAILY Qty: 30 0RF albuterol sulfate 90 mcg/actuation HFA aerosol inhaler 2 puff inhalation Q4-6H PRN (Reason: shortness of breath or wheezing) Qty: 8.5 0RF Rx Instructions: use with spacer device Print Language: Japanese
[2024-12-23 15:11] VITALS: BP 118/59; PULSE 70; O2SAT 95
[2024-12-23 15:15] VITALS: BP 109/53; PULSE 45; RESP 16; TEMP 36.4; O2SAT 91; BMI 36.3
[2024-12-23 15:36] VITALS: PULSE 65; RESP 18; O2SAT 94
--- NOTE | 2024-12-23 16:37 | MHC.CM.PN ---
PT WAS DISCHARGED TO [facility] THIS AFTERNOON FOR STR ONCE THERE, HE DEMANDED TO RETURN [place] [facility] BECAUSE THEY DID NOT HAVE A PRIVATE ROOM RADHA MET WITH PT AND EXPLAINED AGAIN THAT THERE ARE NO PRIVATE ROOMS AVAILABLE AND THIS IS HIS ONLY BED OFFER PT AGREES HE IS NOT SAFE TO RETURN HOME AT THIS TIME RADHA CALLED [facility] AND SPOKE TO ADMIN MERVIN WHO REPORTS THE PT HAS BEEN THERE 3 TIMES IN THE PAST AND THIS IS TYPICALLY, HE DEMANDS TO GO TO THE HOSPITAL OR LEAVES AMA HE SAYS THEY ARE WILLING TO TAKE HIM THIS EVENING [facility] AND SPOKE TO MAHI WHO WILL CALL BACK ONCE TRANSPORT IS ARRANGED
--- NOTE | 2024-12-23 16:46 | MHC.CM.ED ---
Addendum entered by Hannah Ortiz 12/23/24 17:04: [facility] is willing to accept patient. [facility] and they cannot provide transportation until tomorrow,12/24, at 7am. Dinner ordered. Pt, primary RN and provider aware. CM called and spoke with RN at [facility]. Aware that patient will return tomorrow. Original Note: CM met with patient and reiterated what previous CM told the patient. He understands that there are no private rooms and that this is his only bed offer.. He is not happy, but will return to [facility]. Awaiting notification of transport. Primary RN aware. Will call [facility] with report. Provider aware.
[2024-12-23 16:53] VITALS: BP 129/55; PULSE 67; RESP 18; O2SAT 94
--- NOTE | 2024-12-23 17:16 | PC.NURSE ---
report given to Kerri ROSSI in overflow pt to be moved to overflow 6
[2024-12-23 18:00] VITALS: BP 132/63; PULSE 78; RESP 18; TEMP 36.8; O2SAT 94
[2024-12-23] MEDS: Sennosides 8.6 MG TABLET 17.2 MG PO (20:41)
--- NOTE | 2024-12-23 20:41 | PHA.MEDREC ---
Pharmacy Consult ? Medication Reconciliation Pharmacy has completed the medication reconciliation. Med rec reviewed using discharge from earlier this afternoon.
[2024-12-24 01:08] VITALS: BP 142/72; PULSE 69; RESP 16; TEMP 36.7; O2SAT 95
[2024-12-24 07:04] VITALS: BP 137/54; PULSE 60; RESP 18; TEMP 36.6; O2SAT 94
--- NOTE | 2024-12-24 07:07 | PC.NURSE ---
Nurse to nurse report given to Jacqui at [facility]. Pt returning via [facility]. Pt aware of plan of care.
[2024-12-24 07:09] VITALS: BP 137/54; PULSE 60; RESP 18; TEMP 36.6; O2SAT 94
== END 2024-12-24 07:10 | disposition still patient (30) ==
PROVIDERS: Emergency Provider Emergency Medicine
DX: I50.9 Heart failure, unspecified (principal); N17.9 Acute kidney failure, unspecified; E11.9 Type 2 diabetes mellitus without complications; Z79.4 Long term (current) use of insulin; Z79.899 Other long term (current) drug therapy
CPT/HCPCS: 99284

== ENCOUNTER → 2025-03-04 10:33 | Outpatient (BNV) | payer OTHER, SELFPAY | PROVIDERS: Emergency Provider Emergency Medicine; Visit Provider Radiology Diagnostic Radiology | DX: R06.02 Shortness of breath (principal) | CPT/HCPCS: 71045 ==

== ENCOUNTER 2025-03-04 10:57 | Inpatient (IN) | payer OTHER, SELFPAY ==
[2025-03-04] VITALS (11 sets, daily range): BP systolic 116–157; BP diastolic 62–84; PULSE 91–97; RESP 16–37; TEMP 36.2–36.6; O2SAT 87–98; BMI 34.2; BMI 32.2
--- NOTE | 2025-03-04 | ECG_ITS ---
Test Reason : COUGH Blood Pressure : */* mmHG Vent. Rate : 90 BPM Atrial Rate : 90 BPM P-R Int : 200 ms QRS Dur : 112 ms QT Int : 402 ms P-R-T Axes : 17 -51 68 degrees QTcB Int : 491 ms Sinus rhythm with frequent Premature ventricular complexes Left axis deviation Cannot rule out Anterior infarct (cited on or before 02-Jul-2024) Abnormal ECG When compared with ECG of 22-Dec-2024 15:40, Premature ventricular complexes are now Present Referred By: Candelario Anderson Electronically Signed By: BIBI BATES
--- NOTE | ~2025-03-04 | XR_ITS ---
CLINICAL HISTORY: sob 1 view chest x-ray Comparison: CR/AL/SR - XR CHEST 1V - 12/15/24 08:48 EDT Findings: The lungs are clear. Normal size heart. No acute fracture. The patient is status post median sternotomy. IMPRESSION: 1. No acute findings. This document has been electronically signed by: Phi Mueller MD on 03/04/2025 12:26:54
--- NOTE | 2025-03-04 11:02 | ED.GENADULT ---
HPI - General Adult General Chief complaint: General Medical Stated complaint: COUGH Time Seen by Provider: 03/04/25 10:59 Source: patient, EMS and RN notes reviewed Mode of arrival: EMS Limitations: no limitations History of Present Illness ED Provider: KRISTY HECK PA-C HPI narrative: 85-year-old male with pmhx significant for CHF, CAD status post CABG, BPH, HTN, AFib, DM, CKD, LUMMI presents to the ED today from home via EMS for evaluation of shortness of breath and productive cough x3 days. On EMS arrival, patient was found to be satting 93% on room air at rest. He was placed on 2 L nasal cannula and transported to the ED. denies any known sick contacts. In the ED, he is visibly short of breath, speaking in 1-2 word sentences. He denies any chest pain, palpitations. He tells me that he typically ambulates with his walker at baseline. Has been more sedentary recently due to symptoms. Related Data Home Medications ?Medication ?Instructions ?Recorded ?Confirmed amlodipine 10 mg tablet 10 mg PO DAILY 07/04/24 12/23/24 clopidogrel 75 mg tablet 75 mg PO DAILY 07/04/24 12/23/24 insulin glargine-yfgn 100 unit/mL 40 unit subcut DAILY 07/04/24 12/23/24 (3 mL) subcutaneous pen losartan 100 mg tablet 100 mg PO DAILY 07/04/24 12/23/24 sennosides 8.6 mg tablet (senna) 17.2 mg PO BEDTIME 07/04/24 12/23/24 Previous Rx's ?Medication ?Instructions ?Recorded albuterol sulfate 90 mcg/actuation 2 puff inhalation Q4-6H PRN 12/22/24 aerosol inhaler shortness of breath or wheezing #8.5 grams furosemide 40 mg tablet 40 mg PO DAILY #30 tabs 12/22/24 prednisone 10 mg tablet 10 mg PO DIRECTED #6 tabs 12/22/24 Allergies Allergy/AdvReac Type Severity Reaction Status Date / Time hydrochlorothiazide Allergy Unknown Unknown Verified 03/04/25 11:15 Review of Systems Review of Systems: Constitutional: No fever, chills, fatigue, night sweats, weight changes ENT/Mouth: No ear pain, hearing loss, nasal congestion, sinus pain, rhinorrhea, sore throat Eyes: No eye pain, swelling, redness, vision changes, discharge Cardio: No chest pain, palpitations, CARD, orthopnea, peripheral edema Pulm: No SOB, cough, sputum, wheezing, dyspnea, hemoptysis, +SOB, +productive cough GI: No nausea, vomiting, hematemesis, abdominal pain, diarrhea, constipation, hematochezia, melena : No irregular bleeding, dysuria, frequency, urgency, hesitancy, hematuria, flank pain, urinary flow changes, urinary incontinence or retention MSK: No back pain, neck pain, joint pain, myalgias Skin: No lesions, rashes Neuro: No weakness, numbness, paresthesias, LOC, dizziness, headache Psych: No anxiety/panic, depression, SI/HI, AH/VH All other systems reviewed and are negative. [facility]LY [facility] Past Medical History Attestation statement: The following information was validated with the patient. Source: old records reviewed and nursing notes reviewed Medical History (Updated 03/04/25 @ 13:35 by SYED Kaur) Congestive heart failure CKD (chronic kidney disease) Type 2 diabetes mellitus Coronary artery disease Surgical History Hx of CABG Social History Social History Household Members: Significant Other Housing: House Do you presently have visiting nurse or other home services: Yes Patient Tobacco Use Status: Tobacco use Unknown Smoked in Last 30 Days: No e-Cigarette/Vaping Use: Former Use Advance Directives: Yes Advance Directives on File: Yes Advance Directives Date on File: 07/07/24 service: Yes Physical Exam ED Vital Signs: Vital Signs - 24 hr 03/04/25 11:11 03/04/25 11:15 03/04/25 12:13 Temperature 97.2 F Pulse Rate 97 92 92 Respiratory Rate 37 H 34 H 26 H Blood Pressure 157/84 H 143/80 H Pulse Oximetry 96 98 Oxygen Delivery Method Nasal Cannula Nasal Cannula Oxygen Flow Rate 2 03/04/25 12:46 03/04/25 13:17 03/04/25 13:21 Temperature Pulse Rate 91 Respiratory Rate 21 H Blood Pressure 124/79 Pulse Oximetry 95 87 L 94 Oxygen Delivery Method Aerosol Mask Room Air Nasal Cannula Oxygen Flow Rate 3 03/04/25 13:27 Temperature Pulse Rate Respiratory Rate Blood Pressure 118/69 Pulse Oximetry Oxygen Delivery Method Oxygen Flow Rate BMI result Body Mass Index 34.2 hypertensive, tachypneic, satting 97% on 2L NC General: chronically ill appearing Skin: +see below Head: Normocephalic, atraumatic. EENT: Hearing is intact b/l. Conjunctiva clear. Sclera is anicteric. PERRLA. EOM intact. Moist mucous membranes.? Neck: Supple without LAD Cardiac: Chest wall symmetric. RRR. Lungs: mild respiratory distress, increased effort of breathing, no tripoding, lungs with diffuse expiratory wheezes and coarse crackles Abdomen: Soft, distended, nontender, no rebound tenderness or guarding. Back: No midline spinous or paraspinal tenderness. No step off deformity. Ext: + see photo below. nonblanching erythema. intact bullae to L gutierrez. 2+ pitting edema to bilateral lower extremities Neuro: AOx3. Normal speech. Psych: Appropriate mood and affect. Responds appropriately to questions. Course Course Course Narrative: 1224 -- CBC without leukocytosis or left shift. H&H stable. VBG WNL. Chemistry without acute electrolyte abnormality requiring intervention. Renal function appears to be at his baseline CKD. Random glucose 170. Lactic WNL. Liver function WNL. Trop WNL at 18.8, will repeat for delta. BNP mildly elevated to 102. Less likely fluid overload/CHF exacerbation. EKG showing sinus rhythm, rate of 98 beats per minute, frequent PVCs, no acute ischemic changes or ST elevations. > viral swabs and ddimer pending. > chest x-ray without infiltrate or consolidation, no pulmonary edema 1324 -- ddimer 260 - age adjusted cutoff is 420. PE unlikely. Negative COVID, flu, RSV. Respiratory pathogen panel pending. > at this time I have suspicion for CHF. IV lasix ordered. he is desatting to 87% on RA at rest. Will speak with hospitalist regarding admission for further management. 1331 -- patient admitted to hospitalist service for management of CHF and hypoxia. Medications Administered Discontinued Medications Generic Name Dose Route Start Last Admin Trade Name Freq PRN Reason Stop Dose Admin Albuterol Sulfate 5 mg/ 0 mg 03/04/25 12:08 03/04/25 12:13 Albuterol/Ipratropium 3 ml INHALE 03/04/25 12:09 1 each ONCE ONE Administration Furosemide 20 mg 03/04/25 12:59 03/04/25 13:27 Furosemide 20 Mg/2 Ml Vial IVPUSH 03/04/25 13:00 20 mg ONCE ONE Administration Protocol Methylprednisolone Sodium Succinate 125 mg 03/04/25 12:30 03/04/25 12:48 Methylprednisolone Sod Succ 125 Mg Vial IVPUSH 03/04/25 12:31 125 mg ONCE ONE Administration Medical Decision Making Medical Decision Making MDM Narrative: 85-year-old male with pmhx significant for CHF, CAD status post CABG, BPH, HTN, AFib, DM, LUMMI presents to the ED today from home via EMS for evaluation of shortness of breath and productive cough x3 days. On arrival, patient tachypneic to 37, hypertensive, satting 96% on 2 L nasal cannula. Noted increased effort of breathing. Mild respiratory distress. No tripoding. Lungs with diffuse expiratory wheezes and coarse crackles. 2+ pitting edema to LEs. Differential diagnosis includes viral syndrome, bronchitis, pneumonia, CHF, PE, ACS, arrhythmia Plan for ekg, viral swabs, labs, CXR, re-evaluation. Differential Diagnosis Differential Diagnoses: The differential diagnosis associated with the presentation includes as above. Admission/Observation Consideration of admission/observation: Escalation of care including admission/observation considered Patient admitted to medicine for CHF and hypoxia Consult Healthcare Provider Management of the patient was discussed with: Hospitalist (Jason LYNCH) Lab Data [facility] Lab Attestation statement: I reviewed the patient's lab results. as above. 03/04/25 11:26 03/04/25 11:26 Labs: Lab Results 03/04/25 03/04/25 03/04/25 Range/Units 11:26 11:35 11:56 WBC 9.0 (4.8-10.8) X10*3/uL RBC 5.19 (4.60-5.80) X10*6/uL Hgb 13.9 L (14.0-18.0) g/dl Hct 42.1 (42.0-52.0) % MCV 81.1 (80.0-98.0) fL MCH 26.8 L (27.0-33.0) pg MCHC 33.0 (31.0-36.0) g/dl RDW 13.5 (11.0-16.0) % Plt Count 269 (160-400) X10*3/uL MPV 9.9 (9.4-12.4) fL Immature Gran % (Auto) 0.4 (0.0-0.4) % Neut % (Auto) 56.9 (45-73) % Lymph % (Auto) 21.9 (20-40) % [place] % (Auto) 9.6 (2-11) % Eos % (Auto) 10.3 H (0-4) % Baso % (Auto) 0.9 (0-2) % Lymph # (Auto) 2.0 (1.2-4.9) X10*3/uL [place] # (Auto) 0.9 (0.1-1.2) X10*3/uL Eos # (Auto) 0.9 H (0.0-0.4) X10*3/uL Baso # (Auto) 0.1 (0.0-0.2) X10*3/uL Abs Immat Gran (auto) 0.04 H (0.00-0.03) X10*3/uL Absolute Neuts (auto) 5.1 (2.0-8.3) x10*3/uL Absolute Nucleated RBC 0.000 (0.0-0.012) X10*3/uL Nucleated RBC % (auto) 0.0 (0.0-0.2) /100WBC D-Dimer High Sensitivty NG/ML VBG pH 7.39 (7.32-7.43) VBG pCO2 42 mmHg VBG pO2 53 mmHg VBG HCO3 26 (22-26) mmol/L VBG O2 Saturation 75.0 % VBG Base Excess 1.1 mmol/L Sodium 139 (135-145) mmol/L Potassium 3.3 (3.3-5.1) mmol/L Chloride 105 (96-108) mmol/L Carbon Dioxide 25 (22-29) mmol/L Anion Gap 12 (12-20) BUN 28 H (9-16) mg/dL Creatinine 1.50 H (0.5-1.4) mg/dL Estim Creat Clear Calc 42.4 Estimated GFR 45 Random Glucose 170 H (60-115) mg/dL Lactic Acid 1.2 (0.5-2.0) mmol/L Calcium 8.8 (8.4-10.2) mg/dL Magnesium 1.9 (1.6-2.6) mg/dL Total Bilirubin 0.5 (0.0-1.0) mg/dL AST 20 (5-37) U/L ALT 13 (0-40) U/L Alkaline Phosphatase 80 (39-117) U/L Troponin I High Sens 18.8 (<3.5-35.0) ng/L B-Natriuretic Peptide 102 H (<100) pg/mL Total Protein 6.7 (6.5-8.0) g/dL Albumin 3.8 (3.5-5.0) g/dL Influenza Type A (PCR) (Negative) Influenza Type B (PCR) (Negative) RSV RNA Qual (PCR) (Negative) SARS-CoV-2 RNA (RT-PCR) (Negative) 03/04/25 Range/Units 12:32 WBC (4.8-10.8) X10*3/uL RBC (4.60-5.80) X10*6/uL Hgb (14.0-18.0) g/dl Hct (42.0-52.0) % MCV (80.0-98.0) fL MCH (27.0-33.0) pg MCHC (31.0-36.0) g/dl RDW (11.0-16.0) % Plt Count (160-400) X10*3/uL MPV (9.4-12.4) fL Immature Gran % (Auto) (0.0-0.4) % Neut % (Auto) (45-73) % Lymph % (Auto) (20-40) % [place] % (Auto) (2-11) % Eos % (Auto) (0-4) % Baso % (Auto) (0-2) % Lymph # (Auto) (1.2-4.9) X10*3/uL [place] # (Auto) (0.1-1.2) X10*3/uL Eos # (Auto) (0.0-0.4) X10*3/uL Baso # (Auto) (0.0-0.2) X10*3/uL Abs Immat Gran (auto) (0.00-0.03) X10*3/uL Absolute Neuts (auto) (2.0-8.3) x10*3/uL Absolute Nucleated RBC (0.0-0.012) X10*3/uL Nucleated RBC % (auto) (0.0-0.2) /100WBC D-Dimer High Sensitivty 260 NG/ML VBG pH (7.32-7.43) VBG pCO2 mmHg VBG pO2 mmHg VBG HCO3 (22-26) mmol/L VBG O2 Saturation % VBG Base Excess mmol/L Sodium (135-145) mmol/L Potassium (3.3-5.1) mmol/L Chloride (96-108) mmol/L Carbon Dioxide (22-29) mmol/L Anion Gap (12-20) BUN (9-16) mg/dL Creatinine (0.5-1.4) mg/dL Estim Creat Clear Calc Estimated GFR Random Glucose (60-115) mg/dL Lactic Acid (0.5-2.0) mmol/L Calcium (8.4-10.2) mg/dL Magnesium (1.6-2.6) mg/dL Total Bilirubin (0.0-1.0) mg/dL AST (5-37) U/L ALT (0-40) U/L Alkaline Phosphatase (39-117) U/L Troponin I High Sens (<3.5-35.0) ng/L B-Natriuretic Peptide (<100) pg/mL Total Protein (6.5-8.0) g/dL Albumin (3.5-5.0) g/dL Influenza Type A (PCR) NEGATIVE (Negative) Influenza Type B (PCR) NEGATIVE (Negative) RSV RNA Qual (PCR) NEGATIVE (Negative) SARS-CoV-2 RNA (RT-PCR) NEGATIVE (Negative) Independent Interpretation I performed an independent interpretation of an: EKG and Plain X-Ray Interpretation: ekg showing sinus rhythm with rate of 90 beats per minute, PVCs, no acute ischemic changes or ST elevation Chest x-ray without infiltrate or consolidation, no effusion Radiology Impression Discussion of test interpretation with radiology: I have reviewed the radiologist's reading. Radiologist Impression: Date of Service: 03/04/25 Procedure(s): XR chest 1V Accession Number(s): [id number] cc: Physician,Unknown ; Vatrenko,Candelario DO~ CLINICAL HISTORY: sob 1 view chest x-ray Comparison: CR/[facility] - XR CHEST 1V - 12/15/24 08:48 EDT Findings: The lungs are clear. Normal size heart. No acute fracture. The patient is status post median sternotomy. IMPRESSION: 1. No acute findings. This document has been electronically signed by: Phi Mueller MD on 03/04/2025 12:26:54 Independent Historian Clinical information obtained from an independent historian. History obtained from or confirmed by: EMS External Record Review External record reviewed: Inpatient record, Office record, Outpatient record and Prior outpatient labs Chronic Conditions Patient?s care impacted by: Diabetes and Other (CHF) Social Determinants Patient?s care significantly limited by Social Determinants of Health including: Other Social Determinant of Health Critical Care Time Critical Care Time Critical Care Time: Yes Total Critical Care Time: 40 Attestation: Critical care time in the amount of 40 minutes has been provided to the patient in terms of direct patient care, frequent reevaluation, consultation with hospitalist, review and interpretation of medical data and results, and management of potentially life-threatening conditions. This is all outside of any medical procedures. Discharge Plan Discharge Clinical Impression: CHF (congestive heart failure), Hypoxia Patient Disposition: Admitted As Inpatient Print Language: Macedonian
[2025-03-04 11:34] LABS: MANUAL DIFF FLAG NO
[2025-03-04 11:42] LABS: Venous Blood Gas Refer to POC result
[2025-03-04 11:42] LABS: VBG Base Excess 1.1 mmol/L; VBG HCO3 26 mmol/L (22-26); VBG pCO2 42 mmHg; VBG pH 7.39 (7.32-7.43); VBG pO2 53 mmHg
[2025-03-04 11:43] LABS: Basophils Absolute Auto 0.1 X10*3/uL (0.0-0.2); Basophils Percent Auto 0.9 % (0-2); Eosinophils Absolute Auto 0.9 X10*3/uL (0.0-0.4); Eosinophils Percent Auto 10.3 % (0-4); Hematocrit 42.1 % (42.0-52.0); Hemoglobin 13.9 g/dl (14.0-18.0); Imm Gran Abs Auto 0.04 X10*3/uL (0.00-0.03); Imm Gran Pct Auto 0.4 % (0.0-0.4); Lymphocytes Percent Auto 21.9 % (20-40); Mean Corpuscular Hemoglobin 26.8 pg (27.0-33.0); Mean Corpuscular Volume 81.1 fL (80.0-98.0); Mean Platelet Volume 9.9 fL (9.4-12.4); Monocytes Absolute Auto 0.9 X10*3/uL (0.1-1.2); Monocytes Percent Auto 9.6 % (2-11); Neutrophils Absolute Auto 5.1 x10*3/uL (2.0-8.3); Neutrophils Percent Auto 56.9 % (45-73); Platelet Count 269 X10*3/uL (160-400); Red Blood Count 5.19 X10*6/uL (4.60-5.80); Red Cell Distribution Width 13.5 % (11.0-16.0)
--- NOTE | 2025-03-04 11:45 | PC.NURSE ---
Patient is a 84-year-old male with a PMH significant for HFpEF, HTN, CAD s/p CABG 2019, and insulin-dependent type 2 diabetes?who presents to the ED with?fever, chills, SOB, and cough for the past few days, significantly worsened last night and this morning. Cough has been nonproductive. Denies sick contacts. Overall pt is a vague historian, reports increased lower leg edema though unsure for how long, possibly 3-4 weeks. Patient is alert and oriented. 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 Lungs with scattered ex wheezes/coarse crackles. Patient tachypneic with resp rate in the 30's 40's with use of accessory mucles. Persistent couh noted. Abdomen sl firm distended, non-tender with positive bowel sounds. LE edema noted.
[2025-03-04 11:49] LABS: Alanine Aminotransferase 13 U/L (0-40); Albumin Level 3.8 g/dL (3.5-5.0); Alkaline Phosphatase 80 U/L (39-117); Anion Gap 12 (12-20); Aspartate Amino Transferase 20 U/L (5-37); Bilirubin Total 0.5 mg/dL (0.0-1.0); Blood Urea Nitrogen 28 mg/dL (9-16); Calcium 8.8 mg/dL (8.4-10.2); Carbon Dioxide 25 mmol/L (22-29); Chloride 105 mmol/L (96-108); Creatinine Clr Calc Pharmacy 42.4; Estimated Glomerular Filt Rate 45; Glucose Random 170 mg/dL (60-115); Magnesium 1.9 mg/dL (1.6-2.6); Potassium 3.3 mmol/L (3.3-5.1); Sodium 139 mmol/L (135-145); Total Protein 6.7 g/dL (6.5-8.0)
[2025-03-04 11:54] LABS: B Type Natriuretic Peptide 102 pg/mL (<100)
[2025-03-04 11:56] LABS: Troponin-I High Sensitivity 18.8 ng/L (<3.5-35.0)
[2025-03-04] MEDS: Albuterol Sulfate 5 MG, Albuterol/Iprat 2.5/0.5MG 3 ML 3 ML INHALE (12:13)
[2025-03-04 12:15] LABS: Lactic Acid 1.2 mmol/L (0.5-2.0)
[2025-03-04 12:46] LABS: D Dimer High Sensitivity 260 NG/ML
[2025-03-04 13:16] LABS: Influenza A PCR NEGATIVE (Negative); Influenza B PCR NEGATIVE (Negative); Resp Syncy Virus RNA Qual PCR NEGATIVE (Negative); SARS COV2 PCR INHOUSE NEGATIVE (Negative)
[2025-03-04] MEDS: Furosemide 20 MG/2 ML VIAL IVPUSH (13:27)
--- NOTE | 2025-03-04 13:30 | PM.IMHP ---
History of Present Illness Date of Service: 03/04/25 Chief Complaint: Shortness of breath 85-year-old male with pmhx significant for CHF, CAD status post CABG, BPH, HTN, AFib, DM, CKD, NEZ PERCE presents to the ED today from home via EMS for evaluation of shortness of breath and productive cough x3 days. On EMS arrival, patient was found to be satting 93% on room air at rest. He was placed on 2 L nasal cannula and transported to the ED. denies any known sick contacts. Mildly elevated BNP, chest x-ray negative for consolidation or effusion, echocardiogram with preserved ejection fraction, 87% on room air noted as per EMS. Patient was given albuterol, Solu-Medrol and IV Lasix. He will be admitted for further management and treatment of acute congestive heart failure Review of Systems Review of Systems: Denies any recent fever chills or decrease in appetite respiratory See HPI cardiovascular See HPI gastrointestinal denies any dysphagia abdominal pain nausea vomiting or diarrhea genitourinary denies any dysuria frequency or hematuria musculoskeletal denies any joint pain or swelling neuropsych denies any weakness or seizures all other systems reviewed are negativ [facility] Medical History (Updated 03/04/25 @ 13:35 by SYED Kaur) Congestive heart failure CKD (chronic kidney disease) Type 2 diabetes mellitus Coronary artery disease Surgical History Hx of CABG Social History Household Members: Significant Other Housing: House Do you presently have visiting nurse or other home services: Yes Patient Tobacco Use Status: Tobacco use Unknown Smoked in Last 30 Days: No e-Cigarette/Vaping Use: Former Use Advance Directives: Yes Advance Directives on File: Yes Advance Directives Date on File: 07/07/24 service: Yes Meds Allergies Allergy/AdvReac Type Severity Reaction Status Date / Time hydrochlorothiazide Allergy Unknown Unknown Verified 03/04/25 11:15 Home Medications ?Medication ?Instructions ?Recorded ?Confirmed ?Last Taken ?Type amlodipine 10 mg tablet 10 mg PO DAILY 07/04/24 03/04/25 12/23/24 08:07 History clopidogrel 75 mg tablet 75 mg PO DAILY 07/04/24 03/04/25 12/23/24 09:00 History insulin glargine-yfgn 100 unit/mL 40 unit subcut DAILY 07/04/24 03/04/25 12/23/24 08:08 History (3 mL) subcutaneous pen losartan 100 mg tablet 100 mg PO DAILY 07/04/24 03/04/25 12/23/24 08:07 History sennosides 8.6 mg tablet (senna) 8.6 mg PO BEDTIME PRN Constipation 07/04/24 03/04/25 12/22/24 20:00 History Physical Exam Vital Signs and Narrative: Vital Signs: Last Vital Signs Temp 97.2 F 03/04/25 11:11 Pulse 91 03/04/25 12:46 Resp 21 H 03/04/25 12:46 BP 118/69 03/04/25 13:27 Pulse Ox 94 03/04/25 13:21 O2 Del Method Nasal Cannula 03/04/25 13:21 O2 Flow Rate 3 03/04/25 13:21 Oxygen Flow Rate 2 03/04/25 11:11 BMI result Body Mass Index 34.2 Appearing in no acute distress head is normocephalic atraumatic eyes pupils are PERRLA sclera is anicteric mouth throat mucous membranes are intact and moist neck is supple no lymphadenopathy, no JVD noted lung sounds are clear to auscultation heart regular rate rhythm, clear S1, S2 positive bowel sounds, abdomen is soft, nontender neuro patient is alert x3, no focal deficits Results Labs 03/04/25 11:26 03/04/25 11:26 Labs: Laboratory Results - last 24 hr 03/04/25 03/04/25 03/04/25 11:26 11:35 11:56 MCV 81.1 MCH 26.8 L MCHC 33.0 RDW 13.5 Plt Count 269 MPV 9.9 Immature Gran % (Auto) 0.4 Neut % (Auto) 56.9 Lymph % (Auto) 21.9 [place] % (Auto) 9.6 Eos % (Auto) 10.3 H Baso % (Auto) 0.9 Lymph # (Auto) 2.0 [place] # (Auto) 0.9 Eos # (Auto) 0.9 H Baso # (Auto) 0.1 Abs Immat Gran (auto) 0.04 H Absolute Neuts (auto) 5.1 Absolute Nucleated RBC 0.000 Nucleated RBC % (auto) 0.0 D-Dimer High Sensitivty VBG pH 7.39 VBG pCO2 42 VBG pO2 53 VBG HCO3 26 VBG O2 Saturation 75.0 VBG Base Excess 1.1 Anion Gap 12 Estim Creat Clear Calc 42.4 Estimated GFR 45 Random Glucose 170 H Lactic Acid 1.2 Calcium 8.8 Magnesium 1.9 Total Bilirubin 0.5 AST 20 ALT 13 Alkaline Phosphatase 80 Troponin I High Sens 18.8 B-Natriuretic Peptide 102 H Total Protein 6.7 Albumin 3.8 Influenza Type A (PCR) Influenza Type B (PCR) RSV RNA Qual (PCR) SARS-CoV-2 RNA (RT-PCR) 03/04/25 12:32 MCV MCH MCHC RDW Plt Count MPV Immature Gran % (Auto) Neut % (Auto) Lymph % (Auto) [place] % (Auto) Eos % (Auto) Baso % (Auto) Lymph # (Auto) [place] # (Auto) Eos # (Auto) Baso # (Auto) Abs Immat Gran (auto) Absolute Neuts (auto) Absolute Nucleated RBC Nucleated RBC % (auto) D-Dimer High Sensitivty 260 VBG pH VBG pCO2 VBG pO2 VBG HCO3 VBG O2 Saturation VBG Base Excess Anion Gap Estim Creat Clear Calc Estimated GFR Random Glucose Lactic Acid Calcium Magnesium Total Bilirubin AST ALT Alkaline Phosphatase Troponin I High Sens B-Natriuretic Peptide Total Protein Albumin Influenza Type A (PCR) NEGATIVE Influenza Type B (PCR) NEGATIVE RSV RNA Qual (PCR) NEGATIVE SARS-CoV-2 RNA (RT-PCR) NEGATIVE Assessment and Plan (1) Hypoxia: Status: Inactive (2) CHF exacerbation: Status: Inactive Plan 85-year-old man admitted for respiratory failure secondary to heart failure with preserved ejection fraction Acute hypoxic respiratory failure in the setting acute heart failure with preserved ejection fraction Chest x-ray negative for consolidation or effusion BNP mildly elevated at 102 Oxygen saturation 87% IV Lasix Monitor on telemetry Cardiology consultation if no improvement in symptoms Respiratory pathogen panel pending Strict intake and output, daily weights CKD stage IIIA Baseline creatinine Type 2 diabetes mellitus Sliding scale, ADA diet HTN Continue losartan and amlodipine History of coronary artery disease continue Plavix DVT prophylaxis with heparin Quality Stroke Does the patient have a stroke diagnosis?: No VTE Prior VTE?: No VTE Risk Level:: Medical - moderate - high VTE Device Contraindication: Treatment Not Indicated VTE Drug Contraindication: N/A - Med Ordered
--- NOTE | 2025-03-04 14:11 | PC.NURSE ---
(@1300) Pt placed on male purewick for accurate I&O; pt resting comfortably in bed, sleeping. Care ongoing
--- NOTE | 2025-03-04 14:36 | PHA.MEDREC ---
Addendum entered by Hector Salinas PharmD 03/04/25 14:41: reviewed Original Note: Pharmacy Consult ? Medication Reconciliation Pharmacy has completed the medication reconciliation. Spoke with patient however he does not know his medications. He says he does not have a visiting nurse and his S/O would not know either. He knows he takes 4 pills and does an injection daily. He thinks his insulin is 40 units. [facility]. Left voicemail for his niece Katlin. Will update med list if she calls back with changes.
[2025-03-04] MEDS: Heparin Sodium,Porcine 5,000 UNIT/ML VIAL 5000 UNIT SUBCUT (15:00)
[2025-03-04 15:03] LABS: Adenovirus PCR Not Detected (Not Detect.); Bordetella parapertussis PCR Not Detected (Not Detect.); Bordetella pertussis PCR Not Detected (Not Detect.); Chlamydia pneumoniae PCR Not Detected (Not Detect.); Coronavirus 229E PCR Not Detected (Not Detect.); Coronavirus HKU1 PCR Not Detected (Not Detect.); Coronavirus NL63 PCR Not Detected (Not Detect.); Coronavirus OC43 PCR Not Detected (Not Detect.); Human metapneumovirus PCR Not Detected (Not Detect.); Influenza A PCR Not Detected (Not Detect.); Influenza B PCR Not Detected (Not Detect.); Mycoplasma pneumoniae PCR Not Detected (Not Detect.); Parainfluenza 1 PCR Not Detected (Not Detect.); Parainfluenza 2 PCR Not Detected (Not Detect.); Parainfluenza 3 PCR Not Detected (Not Detect.); Parainfluenza 4 PCR Not Detected (Not Detect.); RSV PCR Not Detected (Not Detect.); Rhino/Enterovirus PCR Not Detected (Not Detect.)
[2025-03-04 15:23] LABS: Influenza A H1 PCR Not Detected (Not Detect.); Influenza A H1-2009 PCR Not Detected (Not Detect.); Influenza A H3 PCR Not Detected (Not Detect.); SARS-CoV-2 PCR Not Detected (Not Detect.)
[2025-03-04] MEDS: 0.9 % Sodium Chloride Flush 3 ML SYRINGE IVFLUSH (16:38)
[2025-03-04 17:12] LABS: Glucose, Whole Blood 265 mg/dL (60-115)
[2025-03-04] MEDS: Insulin Lispro 100 UNIT/ML 3 ML VIAL SUBCUT ×2 (17:14→21:44)
[2025-03-04 21:31] LABS: Glucose, Whole Blood 413 mg/dL (60-115)
[2025-03-04 22:29] LABS: Glucose, Whole Blood 497 mg/dL (60-115)
[2025-03-05] VITALS (8 sets, daily range): BP systolic 119–135; BP diastolic 58–73; PULSE 78–90; RESP 16–20; TEMP 36.1–36.9; O2SAT 91–96; BMI 32.9
[2025-03-05 00:20] LABS: Glucose, Whole Blood 312 mg/dL (60-115)
[2025-03-05] MEDS: Benzonatate 100 MG CAPSULE PO ×2 (00:59→08:58)
[2025-03-05] MEDS: 0.9 % Sodium Chloride Flush 3 ML SYRINGE IVFLUSH ×4 (01:01→21:15)
[2025-03-05] MEDS: Heparin Sodium,Porcine 5,000 UNIT/ML VIAL 5000 UNIT SUBCUT ×2 (01:03→14:07)
[2025-03-05 07:43] LABS: Glucose, Whole Blood 219 mg/dL (60-115)
[2025-03-05 07:55] LABS: Hematocrit 40.8 % (42.0-52.0); Hemoglobin 13.4 g/dl (14.0-18.0); Mean Corpuscular HGB Conc 32.8 g/dl (31.0-36.0); Mean Corpuscular Hemoglobin 26.7 pg (27.0-33.0); Mean Corpuscular Volume 81.4 fL (80.0-98.0); Mean Platelet Volume 10.6 fL (9.4-12.4); Platelet Count 264 X10*3/uL (160-400); Red Blood Count 5.01 X10*6/uL (4.60-5.80); Red Cell Distribution Width 13.2 % (11.0-16.0); White Blood Count 8.9 X10*3/uL (4.8-10.8)
[2025-03-05] MEDS: amLODIPine Besylate 10 MG TABLET PO (07:57)
[2025-03-05] MEDS: Losartan Potassium 50 MG TABLET 100 MG PO (07:57)
[2025-03-05] MEDS: Furosemide 40 MG TABLET PO (07:57)
[2025-03-05] MEDS: Clopidogrel Bisulfate 75 MG TABLET PO (07:57)
[2025-03-05] MEDS: Insulin Lispro 100 UNIT/ML 3 ML VIAL SUBCUT ×4 (07:58→21:14)
--- NOTE | 2025-03-05 07:58 | MHC.CM.PN ---
Patient lives with his Elderly Girlfriend and he uses a cane to assist with mobility. Patient went to [facility] in November of this year for STR and he may benefit from a PT Eval to assist with disposition. CM has initiated and will follow for dc planning. PCP/PA is Forrest Marin and Katlin Crowe is the HCP. Transportation at time of dc is pending final dc plan.
[2025-03-05 08:08] LABS: Alanine Aminotransferase 14 U/L (0-40); Albumin Level 3.8 g/dL (3.5-5.0); Alkaline Phosphatase 80 U/L (39-117); Anion Gap 12 (12-20); Aspartate Amino Transferase 17 U/L (5-37); Bilirubin Total 0.4 mg/dL (0.0-1.0); Blood Urea Nitrogen 32 mg/dL (9-16); Calcium 9.1 mg/dL (8.4-10.2); Carbon Dioxide 25 mmol/L (22-29); Chloride 104 mmol/L (96-108); Creatinine Clr Calc Pharmacy 42.7; Estimated Glomerular Filt Rate 46; Glucose Random 224 mg/dL (60-115); Potassium 4.1 mmol/L (3.3-5.1); Sodium 137 mmol/L (135-145); Total Protein 6.7 g/dL (6.5-8.0)
[2025-03-05 08:13] LABS: B Type Natriuretic Peptide 220 pg/mL (<100)
[2025-03-05 11:33] LABS: Glucose, Whole Blood 314 mg/dL (60-115)
--- NOTE | 2025-03-05 11:37 | P.PNIM_ITS ---
Subjective Subjective Date of Service: 03/05/25 Review of Systems Follow up CHF doing better but feeling tired Physical Exam 2 Vital Signs: Vital Signs: Last Vital Signs Temp 97.8 F 03/05/25 07:55 Pulse 78 03/05/25 07:55 Resp 20 03/05/25 07:55 BP 127/70 03/05/25 07:57 Pulse Ox 96 03/05/25 08:05 O2 Del Method Room Air 03/05/25 08:05 O2 Flow Rate 2 03/05/25 07:55 Oxygen Flow Rate 2 03/04/25 11:11 BMI result Body Mass Index 32.9 Appearing in no acute distress lung sounds are clear to auscultation heart regular rate rhythm, clear S1, S2 positive bowel sounds, abdomen is soft, nontender neuro patient is alert x3, no focal deficits Objective Data Active Medications Acetaminophen (Acetaminophen 325 Mg Tablet) 650 mg PO Q6H PRN PRN Reason: Pain, Mild 1-3,fever,headache Amlodipine Besylate (Amlodipine Besylate 10 Mg Tablet) 10 mg PO DAILY [facility]; Protocol Last Admin: 03/05/25 07:57 Dose: 10 mg Documented By: FAUSTO Benzonatate (Benzonatate 100 Mg Capsule) 100 mg PO TID PRN PRN Reason: Cough Last Admin: 03/05/25 08:58 Dose: 100 mg Documented By: FAUSTO Calcium Carbonate (Calcium Carbonate 750 Mg Tab.Chew) 750 mg PO Q4H PRN PRN Reason: Heartburn Clopidogrel Bisulfate (Clopidogrel Bisulfate 75 Mg Tablet) 75 mg PO DAILY [facility] Last Admin: 03/05/25 07:57 Dose: 75 mg Documented By: FAUSTO Dextrose (Dextrose 50 % 25 Gm/50 Ml Syringe) 25 gm IVPUSH Q15M PRN; Protocol PRN Reason: per Hypoglycemia Standing Ord. Furosemide (Furosemide 40 Mg Tablet) 40 mg PO DAILY [facility]; Protocol Last Admin: 03/05/25 07:57 Dose: 40 mg Documented By: FAUSTO Glucose (Glucose Gel 15 Gm Gel..Gram.) 15 gm PO Q15M PRN; Protocol PRN Reason: per Hypoglycemia Standing Ord. Heparin Sodium (Porcine) (Heparin Sodium,Porcine 5,000 Unit/Ml Vial) 5,000 unit SUBCUT Q12H [facility] Last Admin: 03/05/25 01:03 Dose: 5,000 unit Documented By: SANDRA Insulin Human Lispro (Insulin Lispro 100 Unit/Ml 3 Ml Vial) 0 unit SUBCUT SONIYADACHS [facility]; Protocol Last Admin: 03/05/25 07:58 Dose: 4 unit Documented By: FAUSTO Losartan Potassium (Losartan Potassium 50 Mg Tablet) 100 mg PO DAILY [facility]; Protocol Last Admin: 03/05/25 07:57 Dose: 100 mg Documented By: FAUSTO Magnesium Hydroxide (Milk Of Magnesia 30 Ml Oral.Susp) 30 ml PO DAILY PRN PRN Reason: Constipation Melatonin (Melatonin 3 Mg Tablet) 6 mg PO BEDTIME PRN PRN Reason: Insomnia Ondansetron HCl (Ondansetron Hcl 4 Mg/2 Ml Vial) 4 mg IVPUSH Q8H PRN PRN Reason: Nausea and Vomiting Senna (Sennosides 8.6 Mg Tablet) 8.6 mg PO BEDTIME PRN PRN Reason: Constipation Sodium Chloride (0.9 % Sodium Chloride Flush 3 Ml Syringe) 3 ml IVFLUSH QSHIFT [facility] Last Admin: 03/05/25 07:59 Dose: 3 ml Documented By: FAUSTO Labs 03/05/25 06:47 03/05/25 06:47 Labs: Laboratory Results - last 24 hr 03/04/25 03/04/25 03/04/25 11:26 11:35 11:56 MCV 81.1 MCH 26.8 L MCHC 33.0 RDW 13.5 Plt Count 269 MPV 9.9 Immature Gran % (Auto) 0.4 Neut % (Auto) 56.9 Lymph % (Auto) 21.9 [place] % (Auto) 9.6 Eos % (Auto) 10.3 H Baso % (Auto) 0.9 Lymph # (Auto) 2.0 [place] # (Auto) 0.9 Eos # (Auto) 0.9 H Baso # (Auto) 0.1 Abs Immat Gran (auto) 0.04 H Absolute Neuts (auto) 5.1 Absolute Nucleated RBC 0.000 Nucleated RBC % (auto) 0.0 D-Dimer High Sensitivty VBG pH 7.39 VBG pCO2 42 VBG pO2 53 VBG HCO3 26 VBG O2 Saturation 75.0 VBG Base Excess 1.1 Anion Gap 12 Estim Creat Clear Calc 42.4 Estimated GFR 45 POC Glucose Random Glucose 170 H Lactic Acid 1.2 Calcium 8.8 Magnesium 1.9 Total Bilirubin 0.5 AST 20 ALT 13 Alkaline Phosphatase 80 Troponin I High Sens 18.8 B-Natriuretic Peptide 102 H Total Protein 6.7 Albumin 3.8 Respiratory Panel Cuellar Adenovirus (Rapid PCR) B.pert (TEM-PCR) B.parapertussis DNA PCR C. pneumoniae DNA (PCR) Coronavirus OC43 (PCR) Coronavirus HKU1 (PCR) Coronavirus 229E (PCR) Coronavirus NL63 (PCR) Human Metapneumovir PCR Influenza A (RT-PCR) Influenza A (H1) PCR Influ A (H1/09) PCR Influenza A (H3) PCR Influenza Type A (PCR) Influenza B (RT-PCR) Influenza Type B (PCR) M. pneumoniae (PCR) Parainfluenza 1 (PCR) Parainfluenza 2 (PCR) Parainfluenza 3 (PCR) Parainfluenza 4 (PCR) RSV (PCR) RSV RNA Qual (PCR) Entero/Rhino (PCR) SARS-CoV-2 RNA (RT-PCR) 03/04/25 03/04/25 03/04/25 12:32 13:43 17:09 MCV MCH MCHC RDW Plt Count MPV Immature Gran % (Auto) Neut % (Auto) Lymph % (Auto) [place] % (Auto) Eos % (Auto) Baso % (Auto) Lymph # (Auto) [place] # (Auto) Eos # (Auto) Baso # (Auto) Abs Immat Gran (auto) Absolute Neuts (auto) Absolute Nucleated RBC Nucleated RBC % (auto) D-Dimer High Sensitivty 260 VBG pH VBG pCO2 VBG pO2 VBG HCO3 VBG O2 Saturation VBG Base Excess Anion Gap Estim Creat Clear Calc Estimated GFR POC Glucose 265 H Random Glucose Lactic Acid Calcium Magnesium Total Bilirubin AST ALT Alkaline Phosphatase Troponin I High Sens B-Natriuretic Peptide Total Protein Albumin Respiratory Panel Cuellar See Note Adenovirus (Rapid PCR) Not Detected B.pert (TEM-PCR) Not Detected B.parapertussis DNA PCR Not Detected C. pneumoniae DNA (PCR) Not Detected Coronavirus OC43 (PCR) Not Detected Coronavirus HKU1 (PCR) Not Detected Coronavirus 229E (PCR) Not Detected Coronavirus NL63 (PCR) Not Detected Human Metapneumovir PCR Not Detected Influenza A (RT-PCR) Not Detected Influenza A (H1) PCR Not Detected Influ A (H1/) PCR Not Detected Influenza A (H3) PCR Not Detected Influenza Type A (PCR) NEGATIVE Influenza B (RT-PCR) Not Detected Influenza Type B (PCR) NEGATIVE M. pneumoniae (PCR) Not Detected Parainfluenza 1 (PCR) Not Detected Parainfluenza 2 (PCR) Not Detected Parainfluenza 3 (PCR) Not Detected Parainfluenza 4 (PCR) Not Detected RSV (PCR) Not Detected RSV RNA Qual (PCR) NEGATIVE Entero/Rhino (PCR) Not Detected SARS-CoV-2 RNA (RT-PCR) NEGATIVE Not Detected 03/04/25 03/04/25 03/05/25 21:20 22:26 00:16 MCV MCH MCHC RDW Plt Count MPV Immature Gran % (Auto) Neut % (Auto) Lymph % (Auto) [place] % (Auto) Eos % (Auto) Baso % (Auto) Lymph # (Auto) [place] # (Auto) Eos # (Auto) Baso # (Auto) Abs Immat Gran (auto) Absolute Neuts (auto) Absolute Nucleated RBC Nucleated RBC % (auto) D-Dimer High Sensitivty VBG pH VBG pCO2 VBG pO2 VBG HCO3 VBG O2 Saturation VBG Base Excess Anion Gap Estim Creat Clear Calc Estimated GFR POC Glucose 413 H* 497 H* 312 H Random Glucose Lactic Acid Calcium Magnesium Total Bilirubin AST ALT Alkaline Phosphatase Troponin I High Sens B-Natriuretic Peptide Total Protein Albumin Respiratory Panel Cuellar Adenovirus (Rapid PCR) B.pert (TEM-PCR) B.parapertussis DNA PCR C. pneumoniae DNA (PCR) Coronavirus OC43 (PCR) Coronavirus HKU1 (PCR) Coronavirus 229E (PCR) Coronavirus NL63 (PCR) Human Metapneumovir PCR Influenza A (RT-PCR) Influenza A (H1) PCR Influ A (H1/) PCR Influenza A (H3) PCR Influenza Type A (PCR) Influenza B (RT-PCR) Influenza Type B (PCR) M. pneumoniae (PCR) Parainfluenza 1 (PCR) Parainfluenza 2 (PCR) Parainfluenza 3 (PCR) Parainfluenza 4 (PCR) RSV (PCR) RSV RNA Qual (PCR) Entero/Rhino (PCR) SARS-CoV-2 RNA (RT-PCR) 03/05/25 03/05/25 03/05/25 06:47 07:32 11:25 MCV 81.4 MCH 26.7 L MCHC 32.8 RDW 13.2 Plt Count 264 MPV 10.6 Immature Gran % (Auto) Neut % (Auto) Lymph % (Auto) [place] % (Auto) Eos % (Auto) Baso % (Auto) Lymph # (Auto) [place] # (Auto) Eos # (Auto) Baso # (Auto) Abs Immat Gran (auto) Absolute Neuts (auto) Absolute Nucleated RBC 0.000 Nucleated RBC % (auto) 0.0 D-Dimer High Sensitivty VBG pH VBG pCO2 VBG pO2 VBG HCO3 VBG O2 Saturation VBG Base Excess Anion Gap 12 Estim Creat Clear Calc 42.7 Estimated GFR 46 POC Glucose 219 H 314 H Random Glucose 224 H Lactic Acid Calcium 9.1 Magnesium Total Bilirubin 0.4 AST 17 ALT 14 Alkaline Phosphatase 80 Troponin I High Sens B-Natriuretic Peptide 220 H Total Protein 6.7 Albumin 3.8 Respiratory Panel Cuellar Adenovirus (Rapid PCR) B.pert (TEM-PCR) B.parapertussis DNA PCR C. pneumoniae DNA (PCR) Coronavirus OC43 (PCR) Coronavirus HKU1 (PCR) Coronavirus 229E (PCR) Coronavirus NL63 (PCR) Human Metapneumovir PCR Influenza A (RT-PCR) Influenza A (H1) PCR Influ A (H1/09) PCR Influenza A (H3) PCR Influenza Type A (PCR) Influenza B (RT-PCR) Influenza Type B (PCR) M. pneumoniae (PCR) Parainfluenza 1 (PCR) Parainfluenza 2 (PCR) Parainfluenza 3 (PCR) Parainfluenza 4 (PCR) RSV (PCR) RSV RNA Qual (PCR) Entero/Rhino (PCR) SARS-CoV-2 RNA (RT-PCR) Assessment and Plan (1) Acute on chronic heart failure with preserved ejection fraction (HFpEF): Status: Acute Plan 85-year-old man admitted for respiratory failure secondary to heart failure with preserved ejection fraction Acute hypoxic respiratory failure in the setting acute heart failure with preserved ejection fraction Chest x-ray negative for consolidation or effusion BNP mildly elevated at 102 Oxygen saturation initially 87% IV Lasix Monitor on telemetry Cardiology consultation if no improvement in symptoms Respiratory pathogen panel neg Strict intake and output, daily weights CKD stage IIIA Baseline creatinine Type 2 diabetes mellitus Sliding scale, ADA diet lantus HTN Continue losartan and amlodipine History of coronary artery disease continue Plavix DVT prophylaxis with heparin Full code Quality Stroke Does the patient have a stroke diagnosis?: No VTE Prior VTE?: No VTE Risk Level:: Medical - moderate - high VTE Device Contraindication: Treatment Not Indicated VTE Drug Contraindication: N/A - Med Ordered
[2025-03-05 16:11] LABS: Glucose, Whole Blood 304 mg/dL (60-115)
[2025-03-05] MEDS: Furosemide 20 MG/2 ML VIAL IVPUSH (17:36)
[2025-03-05 20:17] LABS: Glucose, Whole Blood 202 mg/dL (60-115)
[2025-03-05] MEDS: Insulin Glargine,Hum.rec.anlog 100 UNIT/ML 10 ML VIAL 40 UNIT SUBCUT (21:14)
[2025-03-06] MEDS: Benzonatate 100 MG CAPSULE PO ×2 (01:15→11:52)
[2025-03-06] MEDS: Heparin Sodium,Porcine 5,000 UNIT/ML VIAL 5000 UNIT SUBCUT (01:16)
[2025-03-06] MEDS: guaiFENesin DM 100/10/5 ML 5 ML SYRUP PO (03:08)
[2025-03-06 03:52] VITALS: BP 170/92; PULSE 100; RESP 18; TEMP 36.2; O2SAT 95
[2025-03-06 06:00] VITALS: BMI 33.8
[2025-03-06 07:21] LABS: Glucose, Whole Blood 114 mg/dL (60-115)
[2025-03-06 07:38] VITALS: BP 128/83; PULSE 78; RESP 18; TEMP 36.2; O2SAT 92
[2025-03-06] MEDS: Clopidogrel Bisulfate 75 MG TABLET PO (07:47)
[2025-03-06] MEDS: Furosemide 20 MG/2 ML VIAL IVPUSH (07:47)
[2025-03-06] MEDS: amLODIPine Besylate 10 MG TABLET PO (07:47)
[2025-03-06] MEDS: Losartan Potassium 50 MG TABLET 100 MG PO (07:47)
[2025-03-06] MEDS: 0.9 % Sodium Chloride Flush 3 ML SYRINGE IVFLUSH (07:47)
[2025-03-06 08:08] LABS: Anion Gap 13 (12-20); Blood Urea Nitrogen 36 mg/dL (9-16); Calcium 8.9 mg/dL (8.4-10.2); Carbon Dioxide 24 mmol/L (22-29); Chloride 105 mmol/L (96-108); Estimated Glomerular Filt Rate 46; Glucose Random 114 mg/dL (60-115); Potassium 3.4 mmol/L (3.3-5.1); Sodium 139 mmol/L (135-145)
[2025-03-06 08:15] LABS: B Type Natriuretic Peptide 105 pg/mL (<100)
[2025-03-06 09:34] VITALS: PULSE 90
[2025-03-06 11:37] LABS: Glucose, Whole Blood 152 mg/dL (60-115)
[2025-03-06 11:40] VITALS: BP 112/69; PULSE 77; RESP 18; TEMP 36.3; O2SAT 94
--- NOTE | 2025-03-06 11:40 | P.DS_ITS ---
DS: Providers Provider Date of Service: 03/06/25 Date of admission: 03/04/25 13:28 Date of discharge: 03/06/25 Primary care physician: Unknown Physician Consults: 03/04/25 22:44 Consult to Wound Care Routine Reason for consultation: stage 1 to buttock, blister left gutierrez 03/05/25 09:22 Consult to Wound Care Routine Reason for consultation: stage 1 Pressure injury DS: Diagnosis Discharge Diagnosis (1) Acute on chronic heart failure with preserved ejection fraction (HFpEF): Status: Acute DS: Summary Hospital Course Hospital Course: History and physical as per admitting provider. 85-year-old male with pmhx significant for CHF, CAD status post CABG, BPH, HTN, AFib, DM, CKD, [place] presents to the ED today from home via EMS for evaluation of shortness of breath and prod uctive cough x3 days. On EMS arrival, patient was found to be satting 93% on room air at rest. He was placed on 2 L nasal cannula and transported to the ED. denies any known sick contacts. Mildly elevated BNP, chest x-ray negative for consolidation or effusion, echocardiogram with preserved ejection fraction, 87% on room air noted as per EMS. Patient was given albuterol, Solu-Medrol and IV Lasix. He will be admitted for further management and treatment of acute congestive heart failure Acute hypoxic respiratory failure in the setting of acute heart failure with preserved ejection fraction. Chest x-ray negative for consolidation or effusion . BNP mildly elevated. Oxygen saturation initially 87%. Treated with IV Lasix. Respiratory pathogen panel neg. Patient should be checking weights daily to share with primary care provider. Home with Lasix 40 mg daily as he previously was. CKD stage IIIA. Baseline creatinine Type 2 diabetes mellitus. Sliding scale, ADA diet. lantus HTN. Continue losartan and amlodipine History of coronary artery disease. continue Plavix Time Attestation Discharge Coordination Time (in mins): 40 Quality: Safe Use of Opioids Does Pt have an Active Cancer Diagnosis on the Problem List?: No Quality: Stroke Does the patient have a stroke diagnosis?: No Physical Exam Vital Signs: Vital Signs: Last Vital Signs Temp 97.2 F 03/06/25 07:38 Pulse 90 03/06/25 09:34 Resp 18 03/06/25 07:38 BP 128/83 03/06/25 07:38 Pulse Ox 92 03/06/25 07:38 O2 Del Method Room Air 03/06/25 07:38 O2 Flow Rate 2 03/05/25 07:55 Oxygen Flow Rate 2 03/04/25 11:11 BMI result Body Mass Index 33.8 Appearing in no acute distress head is normocephalic atraumatic eyes pupils are PERRLA sclera is anicteric mouth throat mucous membranes are intact and moist neck is supple no lymphadenopathy, no JVD noted lung sounds are clear to auscultation heart regular rate rhythm, clear S1, S2 positive bowel sounds, abdomen is soft, nontender neuro patient is alert x3, no focal deficits DS: Data Data Completed and Pending Labs on day of discharge: Laboratory Results - last 24 hr 03/05/25 03/05/25 03/06/25 15:46 19:59 07:07 Sodium Potassium Chloride Carbon Dioxide Anion Gap BUN Creatinine Estim Creat Clear Calc Estimated GFR POC Glucose 304 H 202 H 114 Random Glucose Calcium B-Natriuretic Peptide 03/06/25 03/06/25 07:14 11:30 Sodium 139 Potassium 3.4 Chloride 105 Carbon Dioxide 24 Anion Gap 13 BUN 36 H Creatinine 1.47 H Estim Creat Clear Calc 43.0 Estimated GFR 46 POC Glucose 152 H Random Glucose 114 Calcium 8.9 B-Natriuretic Peptide 105 H Preliminary micro results at discharge 03/04/25 12:32 Blood Culture - Preliminary Blood - Venous No growth after 24 hours. 03/04/25 11:56 Blood Culture - Preliminary Blood - Venous No growth after 24 hours. Discharge Plan Discharge Anticipated Discharge Date/Time: 03/06/25 11:34 Patient Disposition: Home Health Service Discharge Diagnosis: Acute hypoxic respiratory failure Heart failure with preserved ejection fraction [facility] [Outside] Discharge Medications: Continued sennosides [senna] 8.6 mg Tablet 8.6 mg PO BEDTIME PRN (Reason: Constipation) clopidogrel 75 mg Tablet 75 mg PO DAILY amlodipine 10 mg Tablet 10 mg PO DAILY losartan 100 mg Tablet 100 mg PO DAILY insulin glargine-yfgn 100 unit/mL (3 mL) Insulin Pen 40 unit SUBCUT DAILY furosemide 40 mg Tablet 40 mg PO DAILY Qty: 30 0RF Discharge Orders: Discharge Order (Routine); Ordered 03/06/25 Ordered By: Ирина Aaron Diet: Advance to usual diet Activity on Discharge: As tolerated Stand Alone Forms: Patient Portal Discharge page Print Language: Greenlandic Care Plan Goals: Monitor daily weights and document to share with primary care provider Health Concerns: Acute hypoxic respiratory failure Heart failure with preserved ejection fraction Plan of Treatment: Follow up with primary care provider as needed Take all medications as prescribed Assessment: See discharge summary
[2025-03-06] MEDS: Insulin Lispro 100 UNIT/ML 3 ML VIAL SUBCUT (11:52)
--- NOTE | 2025-03-06 12:12 | HO.SKINPHOTO ---
Location: Category: Stage: Length: Width: Depth: cm Location: Category: Stage: Length: Width: Depth: cm Location: Category: Stage: Length: Width: Depth: cm Location: Category: Stage: Length: Width: Depth: cm Location: Category: Stage: Length: Width: Depth: cm Location: Category: Stage: Length: Width: Depth: cm L lateral leg popped blister. dressed with xeroform and gauze wrap
--- NOTE | 2025-03-06 12:40 | MHC.CM.PN ---
Addendum entered by Josi Wu 03/06/25 13:46: [facility] 1400 HOURS Original Note: PT CLEARED TO DC HOME TODAY WITH HOME PT SERVICES [facility]
--- NOTE | 2025-03-07 11:21 | P.CDIM_ITS ---
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 Please review below and update the documentation accordingly. Clinical Indicators: LAB FINDINGS: POC glucose [phone] Type 2 DM Sling scale, ADA diet Lantus Diabetes mellitus Type 2 with hyperglycemia resolved, possible, suspected etc. Other specified Other (explain) Clinically unable to determine (explain) Thank you, Nancie Leonardo, CCS, CDIS Use of terms such as suspected, likely, concern for, or probable (associated with a specific diagnosi s that is being evaluated, monitored, or treated as if it exists) are acceptable and can be coded in the inpatient se tting, when documented at the time of discharge. Please use your independent medical judgment in providing your response. THIS QUERY IS PART OF THE PERMANENT MEDICAL RECORD
== END 2025-03-06 14:21 | disposition home health service (06) | DRG 291 ==
LOC: HO.ED 13:35 → HO.EDOVER 13:38 → HO.IMC 20:17
PROVIDERS: Physician Assistant Medical; Admitting Provider Nurse Practitioner Acute Care; Emergency Provider Emergency Medicine; PCP Physician Assistant; Visit Provider Nurse Practitioner Acute Care
DX: I13.0 Hypertensive heart and chronic kidney disease with heart failure and stage 1 through stage 4 chronic kidney disease, or unspecified chronic kidney disease (principal); I50.33 Acute on chronic diastolic (congestive) heart failure; J96.01 Acute respiratory failure with hypoxia; N18.31 Chronic kidney disease, stage 3a; E11.22 Type 2 diabetes mellitus with diabetic chronic kidney disease; E11.65 Type 2 diabetes mellitus with hyperglycemia; Z20.822 Contact with and (suspected) exposure to COVID-19; Z87.891 Personal history of nicotine dependence; Z79.4 Long term (current) use of insulin; Z79.02 Long term (current) use of antithrombotics/antiplatelets; Z79.899 Other long term (current) drug therapy; I25.10 Atherosclerotic heart disease of native coronary artery without angina pectoris; Z95.1 Presence of aortocoronary bypass graft
CPT/HCPCS: 0241U; 36415; 71045; 80048; 80053; 82803; 82947; 83605; 83735; 83880; 84484; 85025; 85027; 85379; 87040; 87633; 93005; 94640; 97162; 99285; J1644; J1938; J2919

== ENCOUNTER → 2025-03-04 11:14 | Outpatient (BNV) | payer OTHER, SELFPAY | PROVIDERS: Admitting Provider Nurse Practitioner Acute Care; Emergency Provider Emergency Medicine; Visit Provider Internal Medicine | DX: I49.3 Ventricular premature depolarization (principal) | CPT/HCPCS: 93010 ==

== ENCOUNTER → 2025-03-04 13:28 | Outpatient (BNV) | payer OTHER, SELFPAY | PROVIDERS: Admitting Provider Nurse Practitioner Acute Care; Emergency Provider Emergency Medicine; Visit Provider Nurse Practitioner Acute Care | DX: I50.33 Acute on chronic diastolic (congestive) heart failure (principal) | CPT/HCPCS: 99223; 99232; 99239 ==

== ENCOUNTER 2025-03-16 04:36 | Inpatient (IN) | payer OTHER, SELFPAY ==
[2025-03-16] VITALS (16 sets, daily range): BP systolic 101–164; BP diastolic 54–80; PULSE 82–102; RESP 12–45; TEMP 36.4–37.6; O2SAT 88–97; BMI 34.4; BMI 33.6
--- NOTE | ~2025-03-16 | XR_ITS ---
CLINICAL HISTORY: dyspnea 1 view chest x-ray Comparison: CR - XR CHEST 1V - 03/04/25 11:33 EDT CR/WI/SR - XR CHEST 1V - 12/15/24 08:48 EDT Findings: No consolidation or effusion. Normal size heart. No acute fracture. IMPRESSION: 1. No acute findings. This document has been electronically signed by: Flora Fernandes MD on 03/16/2025 06:38:15
--- NOTE | 2025-03-16 04:50 | ECG_ITS ---
Test Reason : SOB Blood Pressure : */* mmHG Vent. Rate : 100 BPM Atrial Rate : 100 BPM P-R Int : 206 ms QRS Dur : 94 ms QT Int : 362 ms P-R-T Axes : * -48 83 degrees QTcB Int : 466 ms Sinus rhythm with occasional Premature ventricular complexes and Fusion complexes Left axis deviation Anteroseptal infarct (cited on or before 02-Jul-2024) Abnormal ECG When compared with ECG of 04-Mar-2025 11:14, Fusion complexes are now Present Questionable change in initial forces of Septal leads Referred By: Dee Aly Electronically Signed By: Reinier Zaldivar
--- NOTE | 2025-03-16 04:59 | ED_ITS ---
HPI - SOB/Dyspnea General Chief Complaint: Dyspnea Stated Complaint: sob Source: patient and EMS Mode of arrival: EMS Limitations: no limitations History of Present Illness ED Provider: Dr. Dee Aly HPI Narrative: patient comes to the emergency room via ambulance from home. Patient reports that he has been having cough and shortness of breath for 2 weeks. Tonight his symptoms got worse. Patient denies nausea vomiting diarrhea or any chest pain. Patient admits that he has history of COPD and CHF but does not use oxygen at home. Per EMS, oxygen saturation has been above 92%, for comfort they put him on 2 L nasal cannula, now saturating 94%. Related Data Home Medications ?Medication ?Instructions ?Recorded ?Confirmed amlodipine 10 mg tablet 10 mg PO DAILY 07/04/2404/21 clopidogrel 75 mg tablet 75 mg PO DAILY 07/04/2404/21 insulin glargine-yfgn 100 unit/mL 40 unit subcut DAILY 07/04/24 03/04/25 (3 mL) subcutaneous pen losartan 100 mg tablet 100 mg PO DAILY 07/04/2404/21 sennosides 8.6 mg tablet (senna) 8.6 mg PO BEDTIME PRN Constipation 07/04/24 03/04/25 Previous Rx's ?Medication ?Instructions ?Recorded furosemide 40 mg tablet 40 mg PO DAILY #30 tabs 11/27 04/21 dextromethorphan polistirex 30 10 ml PO Q12H PRN cough #89 mL 03/06/25 mg/5 mL oral susp ext.release 12hr (Robitussin ER) Allergies Allergy/AdvReac Type Severity Reaction Status Date / Time hydrochlorothiazide Allergy Unknown Unknown Verified 03/16/25 04:49 Review of Systems 2 Review of Systems: Constitutional : No Weight loss, No Fever, No Chills, No Night Sweats, No Fatigue, No Malaise ENT/Mouth : No Hearing loss, No Ear Pain, No Nasal Congestion, No Sinus Pain, No Hoarseness, No sore throat, No Rhinorrhea, No Swallowing Difficulty Eyes: No Eye Pain, No Swelling, No Redness, No Foreign Body, No Discharge, No Vision Changes Cardiovascular : No Chest Pain, No SOB, No Dyspnea on Exertion, No Orthopnea, No Edema, No Palpitations Respiratory : Complaining of cough, wheezing, shortness of breath worse with exertion. Gastrointestinal : No Nausea, No Vomiting, No Diarrhea, No Constipation, No abdominal Pain, No Hematochezia, No Melena Genitourinary : no irregular bleeding, No Dysuria, No Urinary Frequency, No Hematuria, No Urinary Incontinence, No Urgency, No Flank Pain, No Urinary Flow Changes, No Hesitancy Musculoskeletal : No joint pain, No Myalgias, No Joint Swelling Skin : No Skin Lesions, No rash Neuro : No Weakness, No Numbness, No Paresthesias, No Loss of Consciousness, No Dizziness, No Headache Psych : No Anxiety/Panic, No Depression, No SI/HI/AH/VH, No Social Issues, Heme/Lymph: No Bruising, No Bleeding,No Lymphadenopathy Endocrine : No Polyuria, No Polydipsia, No Temperature Intolerance [facility] Past Medical History Medical History Congestive heart failure CKD (chronic kidney disease) Type 2 diabetes mellitus Coronary artery disease Surgical History Hx of CABG Social History Social History Household Members: Significant Other Housing: House Do you presently have visiting nurse or other home services: Yes Patient Tobacco Use Status: Former Tobacco user Smoked in Last 30 Days: No e-Cigarette/Vaping Use: Former Use Use of substances other than those prescribed or required for medical reasons: No Advance Directives: Yes Advance Directives on File: Yes Advance Directives Date on File: 07/07/24 service: Yes Physical Exam 2 Vital Signs: Vital Signs: Last Vital Signs Temp 98.4 F 03/16/25 05:33 Pulse 91 03/16/25 05:36 Resp 23 H 03/16/25 05:36 BP 114/59 L 03/16/25 05:36 Pulse Ox 93 03/16/25 05:36 O2 Del Method Room Air 03/16/25 05:36 BMI result Body Mass Index 34.4 Const: Other: Appearance: Alert. Oriented X3. No acute distress. Eyes: Pupils equal, round and reactive to light. ENT: Pharynx normal. Neck: Normal inspection. Neck supple. No lymph nodes noted. No crepitus CVS: Normal heart rate and rhythm. Pulses normal. Normal S1 and S2 Respiratory: Bilateral rales and crackles, no wheezing. Patient is speaking in full sentences, patient is on room air saturating 92%. Abdomen: Soft and nontender. No rigidity. No distention. Skin: Skin warm and dry. Normal skin color. Normal skin turgor. Extremities: No lower extremity edema. No Lacerations. No Rash Neuro: Oriented X 3. No motor deficit. No sensory deficit. Moving all extremities. No slurred speech. CN 2 through 12 grossly intact Psych: calm, cooperative, normal affect Course Course Course Narrative: Patient has cough, worsening shortness of breath for the last 2 weeks. Patient denies history of both COPD and CHF. Patient is empirically receiving IV fluids, patient does have history of CHF. Patient being given 200 mL of fluid at they 199 mL/hour. IV ceftriaxone and azithromycin. At this time, patient's vitals are stable, blood pressure 131/68, no fever. Sepsis is not suspected patient's imaging pending Medications Administered Generic Name Dose Route Start Last Admin Trade Name Freq PRN Reason Stop Dose Admin Azithromycin 500 mg/ Sodium 250 mls @ 125 mls/hr 03/16/25 04:54 03/16/25 05:23 Chloride IV 03/16/25 06:53 125 mls/hr ONCE ONE Administration Discontinued Medications Generic Name Dose Route Start Last Admin Trade Name Freq PRN Reason Stop Dose Admin Benzonatate 100 mg 03/16/25 06:27 03/16/25 06:34 Benzonatate 100 Mg Capsule PO 03/16/25 06:28 100 mg ONCE ONE Administration Ceftriaxone Sodium 1 gm 03/16/25 04:54 03/16/25 05:19 Ceftriaxone Sodium 1 Gm Vial IVPUSH 03/16/25 04:55 1 gm ONCE ONE Administration Sodium Chloride 200 mls @ 999 mls/hr 03/16/25 05:02 03/16/25 05:32 Ns IVCONT 03/16/25 05:14 Infused .Q13M ONE Infusion Medical Decision Making Medical Decision Making [facility] Narrative: my interpretation of labs: No significant abnormality in patient's hematology and chemistry. Venous blood gases no acute abnormality. Normal lactic acid, troponin 21.3, BNP 109, ETOH negative, serology negative for RSV COVID negative. When patient walks, his oxygen saturation dropped to 87% and he becomes very short of breath. Patient's vitals remained stable. Patient is not septic. Chest x-ray does not show any acute abnormality. Given patient's medical history, patient was empirically treated with IV antibiotics, ceftriaxone azithromycin. I discussed the patient with Dr. Barrow from the Medicine team, patient being admitted Differential Diagnosis Differential Diagnoses: The differential diagnosis associated with the presentation includes ( Chronic lung disease, asthma, pneumonia) Admission/Observation Consideration of admission/observation: Escalation of care including admission/observation considered Consult Healthcare Provider Management of the patient was discussed with: Hospitalist Lab Data [facility] Lab Attestation statement: I reviewed the patient's lab results. 03/16/25 05:06 03/16/25 05:06 Labs: Lab Results 03/16/25 03/16/25 03/16/25 Range/Units 05:06 05:14 05:17 WBC 10.9 H (4.8-10.8) X10*3/uL RBC 5.07 (4.60-5.80) X10*6/uL Hgb 13.8 L (14.0-18.0) g/dl Hct 40.6 L (42.0-52.0) % MCV 80.1 (80.0-98.0) fL MCH 27.2 (27.0-33.0) pg MCHC 34.0 (31.0-36.0) g/dl RDW 13.4 (11.0-16.0) % Plt Count 285 (160-400) X10*3/uL MPV 9.8 (9.4-12.4) fL Immature Gran % (Auto) 0.6 H (0.0-0.4) % Neut % (Auto) 63.3 (45-73) % Lymph % (Auto) 18.5 L (20-40) % [place] % (Auto) 8.7 (2-11) % Eos % (Auto) 8.0 H (0-4) % Baso % (Auto) 0.9 (0-2) % Lymph # (Auto) 2.0 (1.2-4.9) X10*3/uL [place] # (Auto) 1.0 (0.1-1.2) X10*3/uL Eos # (Auto) 0.9 H (0.0-0.4) X10*3/uL Baso # (Auto) 0.1 (0.0-0.2) X10*3/uL Abs Immat Gran (auto) 0.06 H (0.00-0.03) X10*3/uL Absolute Neuts (auto) 6.9 (2.0-8.3) x10*3/uL Absolute Nucleated RBC 0.000 (0.0-0.012) X10*3/uL Nucleated RBC % (auto) 0.0 (0.0-0.2) /100WBC VBG pH 7.40 (7.32-7.43) VBG pCO2 38 mmHg VBG pO2 59 mmHg VBG HCO3 24 (22-26) mmol/L VBG O2 Saturation 85.0 % VBG Base Excess 0.0 mmol/L Sodium 139 (135-145) mmol/L Potassium 3.7 (3.3-5.1) mmol/L Chloride 107 (96-108) mmol/L Carbon Dioxide 22 (22-29) mmol/L Anion Gap 14 (12-20) BUN 31 H (9-16) mg/dL Creatinine 1.39 (0.5-1.4) mg/dL Estim Creat Clear Calc 45.9 Estimated GFR 49 Random Glucose 136 H (60-115) mg/dL Lactic Acid 1.0 (0.5-2.0) mmol/L Calcium 9.4 (8.4-10.2) mg/dL Total Bilirubin 0.4 (0.0-1.0) mg/dL Direct Bilirubin 0.2 (0.0-0.5) mg/dL AST 19 (5-37) U/L ALT 16 (0-40) U/L Alkaline Phosphatase 91 (39-117) U/L Troponin I High Sens 21.3 (<3.5-35.0) ng/L B-Natriuretic Peptide 109 H (<100) pg/mL Total Protein 6.7 (6.5-8.0) g/dL Albumin 3.9 (3.5-5.0) g/dL Ethyl Alcohol 12 Cancelled mg/dL Influenza Type A (PCR) NEGATIVE (Negative) Influenza Type B (PCR) NEGATIVE (Negative) RSV RNA Qual (PCR) NEGATIVE (Negative) SARS-CoV-2 RNA (RT-PCR) NEGATIVE (Negative) Independent Interpretation I performed an independent interpretation of an: Plain X-Ray Radiology Impression Discussion of test interpretation with radiology: I have reviewed the radiologist's reading. Radiologist Impression: No consolidation or effusion. Normal size heart. No acute fracture. Critical Care Time Critical Care Time Critical Care Time: Yes Total Critical Care Time: 60 Attestation: I have personally provided critical care time. Time includes review of lab data, radiology results, discussion with consultants, and monitoring for potential decompensation. Intervention performed as documented. Discharge Plan Discharge Clinical Impression: Bronchitis, Chronic lung disease Patient Disposition: Admitted As Inpatient Print Language: Wallisian
[2025-03-16 05:17] LABS: Venous Blood Gas Refer to POC result
[2025-03-16 05:18] LABS: VBG HCO3 24 mmol/L (22-26); VBG pCO2 38 mmHg; VBG pO2 59 mmHg
[2025-03-16] MEDS: cefTRIAXone sodium 1 GM VIAL IVPUSH (05:19)
[2025-03-16] MEDS: Azithromycin 500 MG in 0.9 % Sodium Chloride 250 ML 125 MG IV (05:23)
[2025-03-16 05:28] LABS: MANUAL DIFF FLAG NO
[2025-03-16 05:29] LABS: Alanine Aminotransferase 16 U/L (0-40); Albumin Level 3.9 g/dL (3.5-5.0); Alkaline Phosphatase 91 U/L (39-117); Anion Gap 14 (12-20); Aspartate Amino Transferase 19 U/L (5-37); Basophils Absolute Auto 0.1 X10*3/uL (0.0-0.2); Basophils Percent Auto 0.9 % (0-2); Bilirubin Direct 0.2 mg/dL (0.0-0.5); Bilirubin Total 0.4 mg/dL (0.0-1.0); Blood Urea Nitrogen 31 mg/dL (9-16); Calcium 9.4 mg/dL (8.4-10.2); Carbon Dioxide 22 mmol/L (22-29); Chloride 107 mmol/L (96-108); Creatinine Clr Calc Pharmacy 45.9; Eosinophils Absolute Auto 0.9 X10*3/uL (0.0-0.4); Estimated Glomerular Filt Rate 49; Glucose Random 136 mg/dL (60-115); Hematocrit 40.6 % (42.0-52.0); Hemoglobin 13.8 g/dl (14.0-18.0); Imm Gran Abs Auto 0.06 X10*3/uL (0.00-0.03); Imm Gran Pct Auto 0.6 % (0.0-0.4); Lymphocytes Percent Auto 18.5 % (20-40); Mean Corpuscular Hemoglobin 27.2 pg (27.0-33.0); Mean Corpuscular Volume 80.1 fL (80.0-98.0); Mean Platelet Volume 9.8 fL (9.4-12.4); Monocytes Percent Auto 8.7 % (2-11); Neutrophils Absolute Auto 6.9 x10*3/uL (2.0-8.3); Neutrophils Percent Auto 63.3 % (45-73); Platelet Count 285 X10*3/uL (160-400); Potassium 3.7 mmol/L (3.3-5.1); Red Blood Count 5.07 X10*6/uL (4.60-5.80); Red Cell Distribution Width 13.4 % (11.0-16.0); Sodium 139 mmol/L (135-145); Total Protein 6.7 g/dL (6.5-8.0); White Blood Count 10.9 X10*3/uL (4.8-10.8)
[2025-03-16 05:35] LABS: B Type Natriuretic Peptide 109 pg/mL (<100)
[2025-03-16 05:36] LABS: Troponin-I High Sensitivity 21.3 ng/L (<3.5-35.0)
[2025-03-16 05:42] LABS: Ethanol 12 mg/dL
[2025-03-16 06:06] LABS: Influenza A PCR NEGATIVE (Negative); Influenza B PCR NEGATIVE (Negative); Resp Syncy Virus RNA Qual PCR NEGATIVE (Negative); SARS COV2 PCR INHOUSE NEGATIVE (Negative)
[2025-03-16] MEDS: Benzonatate 100 MG CAPSULE PO (06:34)
--- NOTE | 2025-03-16 06:48 | PC.NURSE ---
Pt noted to desat to 87% and feeling increased sob during and after ambulation trial. Pt used walker to ambulate with standby assist.
--- NOTE | 2025-03-16 06:55 | PM.IMHP ---
History of Present Illness Date of Service: 03/16/25 Attending physician on admission: [facility] Chief Complaint: SOB Patient is a 85-year-old male with a past medical history significant for HFpEF, CAD, COPD unspecified, CABG, HTN, paroxysmal a fib, type 2 diabetes on insulin and CKD 3, who presented to the ED due to productive cough and shortness of breath for the past 2 weeks. Patient denies any fever, chills, nausea or vomiting. No abdominal pain or urinary symptoms. He denies any recent sick contacts. He also denies frequent alcohol use. Review of Systems Constitutional: Constitutional: Denies body ache(s), Denies chills, Reports fatigue, Denies fever(s) and Denies headache(s) Eyes: Eyes: Denies change in vision and Denies loss of vision ENT: Denies headache(s), Denies nasal congestion and Denies sore throat Cardiovascular: Cardiovascular: Denies chest pain, Denies rapid heart rate, Reports leg edema, Denies lightheadedness and Reports dyspnea Respiratory: Respiratory: Reports chest congestion, Reports cough, Reports dyspnea and Reports wheezing Gastrointestinal: Gastrointestinal: Denies diarrhea, Denies nausea and Denies vomiting Genitourinary: Genitourinary: Denies oliguria, Denies dysuria and Denies urinary urgency Musculoskeletal: Musculoskeletal: Denies myalgias Integumentary/Breasts: Skin/Breast: Denies rash Neurologic: Denies confusion, Denies headache(s) and Denies loss of vision Psychiatric: Psychiatric: Denies confusion Endocrine: Endocrine: Reports fatigue Hematologic/Lymphatic: Hematologic/Lymphatic: Denies easy bleeding and Denies easy bruising Allergic/Immunologic: Allergic/Immunologic: Reports wheezing [facility] Medical History (Updated 03/16/25 @ 07:21 by Pinky Smith PA-C) Type 2 diabetes mellitus without complications Paroxysmal A-fib Congestive heart failure CKD (chronic kidney disease) Type 2 diabetes mellitus Coronary artery disease Surgical History Hx of CABG Social History Household Members: Significant Other Housing: House Do you presently have visiting nurse or other home services: Yes Patient Tobacco Use Status: Former Tobacco user Smoked in Last 30 Days: No e-Cigarette/Vaping Use: Former Use Use of substances other than those prescribed or required for medical reasons: No Advance Directives: Yes Advance Directives on File: Yes Advance Directives Date on File: 07/07/24 service: Yes Narrative: no smoking, denies frequent etoh use Meds Allergies Allergy/AdvReac Type Severity Reaction Status Date / Time hydrochlorothiazide Allergy Unknown Unknown Verified 03/16/25 04:49 Home Medications ?Medication ?Instructions ?Recorded ?Confirmed ?Last Taken ?Type amlodipine 10 mg tablet 10 mg PO DAILY 07/04/24 03/04/25 12/23/24 08:07 History clopidogrel 75 mg tablet 75 mg PO DAILY 07/04/24 03/04/25 12/23/24 09:00 History insulin glargine-yfgn 100 unit/mL 40 unit subcut DAILY 07/04/24 03/04/25 12/23/24 08:08 History (3 mL) subcutaneous pen losartan 100 mg tablet 100 mg PO DAILY 07/04/24 03/04/25 12/23/24 08:07 History sennosides 8.6 mg tablet (senna) 8.6 mg PO BEDTIME PRN Constipation 07/04/24 03/04/25 12/22/24 20:00 History Physical Exam Vital Signs and Narrative: Vital Signs: Last Vital Signs Temp 98.4 F 03/16/25 05:33 Pulse 91 03/16/25 05:36 Resp 23 H 03/16/25 05:36 BP 114/59 L 03/16/25 05:36 Pulse Ox 93 03/16/25 05:36 O2 Del Method Room Air 03/16/25 05:36 BMI result Body Mass Index 34.4 General: AOx3, no acute distress Resp: rhonchorous with wheezing throughout CVS: tachy, normal rhythm GI: +BS, NT, no distention Skin: Warm, dry. chronic wound LLE, no surrounding erythema Neuro: Cranial nerves II-XII grossly intact bilaterally. Motor grossly intact bilaterally Extremities: 1+ pitting edema Psych: Appropriate affect Const: General: No confusion Orientation/consciousness: No confusion Neuro: General: No confusion Results Labs 03/16/25 05:06 03/16/25 05:06 Labs: Laboratory Results - last 24 hr 03/16/25 03/16/25 03/16/25 05:06 05:14 05:17 MCV 80.1 MCH 27.2 MCHC 34.0 RDW 13.4 Plt Count 285 MPV 9.8 Immature Gran % (Auto) 0.6 H Neut % (Auto) 63.3 Lymph % (Auto) 18.5 L [place] % (Auto) 8.7 Eos % (Auto) 8.0 H Baso % (Auto) 0.9 Lymph # (Auto) 2.0 [place] # (Auto) 1.0 Eos # (Auto) 0.9 H Baso # (Auto) 0.1 Abs Immat Gran (auto) 0.06 H Absolute Neuts (auto) 6.9 Absolute Nucleated RBC 0.000 Nucleated RBC % (auto) 0.0 VBG pH 7.40 VBG pCO2 38 VBG pO2 59 VBG HCO3 24 VBG O2 Saturation 85.0 VBG Base Excess 0.0 Anion Gap 14 Estim Creat Clear Calc 45.9 Estimated GFR 49 Random Glucose 136 H Lactic Acid 1.0 Calcium 9.4 Total Bilirubin 0.4 Direct Bilirubin 0.2 AST 19 ALT 16 Alkaline Phosphatase 91 Troponin I High Sens 21.3 B-Natriuretic Peptide 109 H Total Protein 6.7 Albumin 3.9 Ethyl Alcohol 12 Cancelled Influenza Type A (PCR) NEGATIVE Influenza Type B (PCR) NEGATIVE RSV RNA Qual (PCR) NEGATIVE SARS-CoV-2 RNA (RT-PCR) NEGATIVE Assessment and Plan (1) Acute hypoxic respiratory failure: Status: Acute (2) Sepsis: Status: Acute (3) COPD exacerbation: Status: Acute (4) Open wound of left lower extremity: Status: Acute Plan Patient is a 85-year-old male with a past medical history significant for HFpEF, CAD, COPD unspecified, CABG, HTN, paroxysmal a fib, type 2 diabetes on insulin and CKD 3, who presented to the ED due to productive cough and shortness of breath for the past 2 weeks. Acute hypoxic respiratory failure with sepsis secondary to acute COPD exacerbation - WBC 10.9, tachycardic and tachypneic, afebrile, lactic acid 1.0, blood cultures x2 pending, not severe sepsis - chest x-ray negative - BNP normal - COVID/flu/RSV negative - started on ceftriaxone and azithromycin in ED, chest x-ray negative, switch to doxycycline b.i.d. for bronchitis - Solu-Medrol 60 mg b.i.d. - levalbuterol/ipratropium Q4H while awake - tessalon PRN for cough - check d-dimer - titrate O2 as needed - follow CBC and BMP ? Alcohol use disorder - blood alcohol level 12 - patient declines any recent alcohol use - monitor CIWA scores Chronic open wound left lower extremity - does not appear infected - wound care consult HFpEF, no acute exacerbation - BNP normal - CXR negative - continue home meds CAD - continue home meds HTN - continue home meds Paroxysmal AFib - EKG with NSR - continue home meds Type 2 diabetes - sliding scale insulin - diabetic diet - Lantus nightly CKD3 - cr at baseline full code VTE prophy: lovenox Patient with acute hypoxic respiratory failure and sepsis secondary to acute COPD exacerbation, requiring admission for at least 2 midnights stay for IV steroids, breathing treatments and antibiotics. Quality Stroke Does the patient have a stroke diagnosis?: No VTE Prior VTE?: No VTE Risk Level:: Medical - moderate - high VTE Device Contraindication: Treatment Not Indicated VTE Drug Contraindication: N/A - Med Ordered
[2025-03-16 07:15] LABS: Glucose, Whole Blood 115 mg/dL (60-115)
[2025-03-16] MEDS: levalbuterol HCL 1.25 MG, Ipratropium Bromide 0.5 MG INHALE ×4 (07:29→19:27)
--- NOTE | 2025-03-16 08:10 | PC.NURSE ---
Pt states he's feeling much better than when i got here . with poor positioning SaO2 was 89%/RA. boosted and seated upright it's 94%/RA. LS CTA. pt denies drinking, is [place]. plus 2-3 pedal edema BLE. left wound dressing CDI. awaits bed assignment
[2025-03-16] MEDS: 0.9 % Sodium Chloride Flush 3 ML SYRINGE IVFLUSH ×2 (08:12→18:02)
[2025-03-16] MEDS: Enoxaparin Sodium 40 MG/0.4 ML SYRINGE SUBCUT (08:32)
[2025-03-16] MEDS: Doxycycline Hyclate 100 MG in 0.9 % Sodium Chloride 250 ML 166.67 MG IV ×2 (08:32→21:56)
[2025-03-16 09:18] LABS: D Dimer High Sensitivity 210 NG/ML
--- NOTE | 2025-03-16 09:38 | MHC.CM.PN ---
Attempted to meet with patient in regards to discharge planning. Patient currently sleeping. No family present. Will attempt to meet again. Continue to monitor for d/c needs.
--- NOTE | 2025-03-16 10:23 | PC.NURSE ---
Pt has been sleeping mostly. Placed on 2L NC while asleep with SaO2 of 88.
[2025-03-16 13:04] LABS: Glucose, Whole Blood 268 mg/dL (60-115)
[2025-03-16] MEDS: Insulin Lispro 100 UNIT/ML 3 ML VIAL SUBCUT ×3 (13:05→21:55)
[2025-03-16] MEDS: guaiFENesin 100 MG/5 ML 5 ML LIQUID PO (14:08)
--- NOTE | 2025-03-16 14:53 | MHC.CM.PN ---
Met with patient in regards to discharge planning. Patient lives with his sig other, Amalia, ambulates with a walker and receives Meals on Wheels. PCP verified. Copy of HCP verified to be on file. Patient is unsure how he will get home. Sometimes family transport him. Sometimes he has to take the [facility] shuttle. CM will address transportation at d/c. Patient was d/c'd from [facility] on 03/04 with [facility]. Referral made to [facility] to verify if patient is active with their agency. Continue to monitor for d/c needs.
--- NOTE | 2025-03-16 15:32 | MHC.EDTECH ---
pt found soiled and incontinent of urine, pt was changed into clean clothing, linen changed, warm blankets given, vitals obtained, call [facility] within reach
[2025-03-16 17:53] LABS: Glucose, Whole Blood 343 mg/dL (60-115)
--- NOTE | 2025-03-16 18:57 | PM.EVENT ---
Event Note Date of Service: 03/16/25 Event Note: pt seen/examined and plan discussed with PA. Med rec still pending Time Spent With Patient Time: Total time managing care of this patient today ____ minutes.
--- NOTE | 2025-03-16 19:05 | PHA.MEDREC ---
Pharmacy Consult ? Medication Reconciliation Pharmacy has completed the [facility]
--- NOTE | 2025-03-16 21:15 | PC.NURSE ---
solumedrol d/c, charted against it in NOV.
[2025-03-16 21:29] LABS: Glucose, Whole Blood 410 mg/dL (60-115)
[2025-03-16] MEDS: Insulin Glargine,Hum.rec.anlog 100 UNIT/ML 10 ML VIAL 28 UNIT SUBCUT (21:55)
[2025-03-16] MEDS: methylPREDNISolone Sod Succ 125 MG/2 ML VIAL 60 MG IVPUSH (21:55)
[2025-03-17] VITALS (7 sets, daily range): BP systolic 108–143; BP diastolic 56–72; PULSE 82–92; RESP 16–18; TEMP 36.1–37; O2SAT 91–96
[2025-03-17 01:29] LABS: Glucose, Whole Blood 288 mg/dL (60-115)
--- NOTE | 2025-03-17 01:58 | PC.NURSE ---
Upon arrival to unit patients POC 410. Patient due for SubQ Lantus and Lispro. MD Marcos notified. No need for additional coverage. Give as ordred per nov and recheck POC 2hrs later. Recheck POC 288.
[2025-03-17 07:01] LABS: MANUAL DIFF FLAG NO
[2025-03-17 07:13] LABS: Basophils Percent Auto 0.1 % (0-2); Hematocrit 38.5 % (42.0-52.0); Hemoglobin 12.5 g/dl (14.0-18.0); Imm Gran Abs Auto 0.06 X10*3/uL (0.00-0.03); Imm Gran Pct Auto 0.5 % (0.0-0.4); Mean Corpuscular HGB Conc 32.5 g/dl (31.0-36.0); Mean Corpuscular Hemoglobin 26.5 pg (27.0-33.0); Mean Corpuscular Volume 81.7 fL (80.0-98.0); Mean Platelet Volume 10.2 fL (9.4-12.4); Monocytes Absolute Auto 0.2 X10*3/uL (0.1-1.2); Monocytes Percent Auto 1.6 % (2-11); Neutrophils Absolute Auto 11.3 x10*3/uL (2.0-8.3); Neutrophils Percent Auto 89.8 % (45-73); Platelet Count 261 X10*3/uL (160-400); Red Blood Count 4.71 X10*6/uL (4.60-5.80); Red Cell Distribution Width 13.2 % (11.0-16.0); White Blood Count 12.5 X10*3/uL (4.8-10.8)
[2025-03-17 07:27] LABS: Anion Gap 12 (12-20); Blood Urea Nitrogen 25 mg/dL (9-16); Carbon Dioxide 21 mmol/L (22-29); Chloride 107 mmol/L (96-108); Creatinine Clr Calc Pharmacy 54.8; Estimated Glomerular Filt Rate > 60; Glucose Random 307 mg/dL (60-115); Potassium 4.4 mmol/L (3.3-5.1); Sodium 136 mmol/L (135-145)
[2025-03-17 07:31] LABS: Glucose, Whole Blood 303 mg/dL (60-115)
[2025-03-17] MEDS: methylPREDNISolone Sod Succ 125 MG/2 ML VIAL 40 MG IVPUSH ×2 (08:05→21:43)
[2025-03-17] MEDS: Cyanocobalamin (Vitamin B-12) 1,000 MCG TABLET 1000 MCG PO (08:05)
[2025-03-17] MEDS: Losartan Potassium 50 MG TABLET 100 MG PO (08:05)
[2025-03-17] MEDS: Furosemide 40 MG TABLET PO (08:05)
[2025-03-17] MEDS: Clopidogrel Bisulfate 75 MG TABLET PO (08:05)
[2025-03-17] MEDS: Enoxaparin Sodium 40 MG/0.4 ML SYRINGE SUBCUT (08:06)
[2025-03-17] MEDS: amLODIPine Besylate 10 MG TABLET PO (08:06)
[2025-03-17] MEDS: Insulin Lispro 100 UNIT/ML 3 ML VIAL SUBCUT ×4 (08:06→21:43)
[2025-03-17] MEDS: 0.9 % Sodium Chloride Flush 3 ML SYRINGE IVFLUSH ×3 (08:07→21:50)
[2025-03-17] MEDS: Insulin Glargine,Hum.rec.anlog 100 UNIT/ML 10 ML VIAL 10 UNIT SUBCUT (08:07)
[2025-03-17] MEDS: Doxycycline Hyclate 100 MG in 0.9 % Sodium Chloride 250 ML 166.67 MG IV ×2 (08:08→21:50)
[2025-03-17] MEDS: levalbuterol HCL 1.25 MG, Ipratropium Bromide 0.5 MG INHALE ×2 (08:45→15:52)
--- NOTE | 2025-03-17 10:31 | MHC.CM.PN ---
EMR REVIEWED, PT W/COPD EXAC, FINAL BC'S PENDING, PER HOSPITALIST PT IMPROVING HOWEVER NOT QUITE READY FOR DC, PLAN TO WEAN PT OFF O2. PER [facility] PT IS NOT ACTIVE D/T REFUSING ALL SERVICES. CM WILL CONT TO FOLLOW DC NEEDS.
[2025-03-17 11:44] LABS: Glucose, Whole Blood 335 mg/dL (60-115)
--- NOTE | 2025-03-17 13:19 | HO.WOUND ---
Wound Consult: Initial 85yr old?male admitted to [facility] on 03/16/25- See progress notes and H&P for detailed history.? Wound consult placed for Left Lateral Lower Leg.? Patient agreeable to assessment and photo documentation.? Left Lower Lateral Leg Etiology: Venous wound??Present on Admission Measurements: 9cm x 4cm x 0.2cm Wound Bed: marbled wund bed with thin yellow and pink moist wound bed Drainage / Odor: holloway drainage no dressing and dried crusted drainage to wound edge Edges: ?irregular and macerated Ryann wound: ?red pink erythema and evidence of prior swelling noted No Induration, Fluctuance or Warmth noted Pain: denies Goals of Treatment: ? Elevate and durafiber for moisture management Recommendations: 1. Turn and Reposition every 2 hours and as needed for patient comfort.? Use pillows or wedges to support off loading positions. 2. Off Load all bony prominences with use of pillows and heel boots if needed.? Apply Preventative foams where needed. ? 3. Monitor for incontinence and moisture control, use barrier creams when needed for prevention and treatment. 4. Provide adequate and supplemental nutrition.? 5. Order low air loss mattress. 6. When applicable maintain blood glucose levels per Providers order. Left Lower Lateral Leg - Elevate lower legs off of surface of bed with use of pillows.? Cleanse with NS, Pat dry.? Apply lotion to both legs, apply layer of Durafiber AG to open wound beds secure with ABD pad, gauze wrap and tape.? Change every other day. Re-consult wound care Nurse for wound deterioration or wound changes.
--- NOTE | 2025-03-17 13:22 | P.PNIM_ITS ---
Subjective Subjective Date of Service: 03/17/25 Interval History: f/u on sob feels better, having lot of cough Physical Exam 2 Vital Signs: Vital Signs: Last Vital Signs Temp 97.6 F 03/17/25 11:43 Pulse 92 03/17/25 11:43 Resp 18 03/17/25 11:43 BP 122/60 03/17/25 11:43 Pulse Ox 94 03/17/25 11:43 O2 Del Method Room Air 03/17/25 11:43 O2 Flow Rate 2 03/17/25 07:45 BMI result Body Mass Index 33.6 Const: Other: General: AO X 3, no acute distress Resp: some wheezing CVS: S1,S2,RRR GI: +BS, NT, no distention Skin: No rash Neuro: motor grossly intact Psych: appropriate affect Objective Data Active Medications Acetaminophen (Acetaminophen 325 Mg Tablet) 975 mg PO Q6H PRN PRN Reason: Pain, Mild 1-3,fever,headache Al Hydroxide/Mg Hydroxide (Magnesium Hydrox/Alum Hydrox 30 Ml Oral.Susp) 30 ml PO Q6H PRN PRN Reason: Dyspepsia Albuterol Sulfate (Albuterol Sulfate (0.083%) 2.5 Mg/3 Ml Vial.Neb) 2.5 mg INHALE Q2H PRN PRN Reason: Shortness of Breath/Wheezing Amlodipine Besylate (Amlodipine Besylate 10 Mg Tablet) 10 mg PO DAILY [facility]; Protocol Last Admin: 03/17/25 08:06 Dose: 10 mg Documented By: KIM Calcium Carbonate (Calcium Carbonate 750 Mg Tab.Chew) 750 mg PO Q4H PRN PRN Reason: Heartburn Clopidogrel Bisulfate (Clopidogrel Bisulfate 75 Mg Tablet) 75 mg PO DAILY [facility] Last Admin: 03/17/25 08:05 Dose: 75 mg Documented By: KIM Levalbuterol HCl 1.25 mg/ (Ipratropium [place] 0.5 mg) 0 mg INHALE RQ4H WHILE AWAKE [facility] Last Admin: 03/17/25 11:45 Dose: Not Given Documented By: LIO Non-Admin Reason: Patient Refused Cyanocobalamin (Cyanocobalamin (Vitamin B-12) 1,000 Mcg Tablet) 1,000 mcg PO DAILY [facility] Last Admin: 03/17/25 08:05 Dose: 1,000 mcg Documented By: KIM Dextrose (Dextrose 50 % 25 Gm/50 Ml Syringe) 25 gm IVPUSH Q15M PRN; Protocol PRN Reason: per Hypoglycemia Standing Ord. Enoxaparin Sodium (Enoxaparin Sodium 40 Mg/0.4 Ml Syringe) 40 mg SUBCUT Q24H [facility] Last Admin: 03/17/25 08:06 Dose: 40 mg Documented By: KIM Furosemide (Furosemide 40 Mg Tablet) 40 mg PO DAILY [facility]; Protocol Last Admin: 03/17/25 08:05 Dose: 40 mg Documented By: KIM Glucose (Glucose Gel 15 Gm Gel..Gram.) 15 gm PO Q15M PRN; Protocol PRN Reason: per Hypoglycemia Standing Ord. Guaifenesin (Guaifenesin 100 Mg/5 Ml 5 Ml Liquid) 5 ml PO Q4H PRN PRN Reason: Cough Last Admin: 03/16/25 14:08 Dose: 5 ml Documented By: JOANNA Doxycycline Hyclate 100 mg/ (Sodium Chloride) 250 mls @ 166.67 mls/hr IV BID [facility] Last Infusion: 03/17/25 09:40 Dose: Infused Documented By: KIM Insulin Glargine (Insulin Glargine,Hum.Rec.Anlog 100 Unit/Ml 10 Ml Vial) 28 unit SUBCUT BEDTIME [facility] Last Admin: 03/16/25 21:55 Dose: 28 unit Documented By: GEORGETTE Insulin Glargine (Insulin Glargine,Hum.Rec.Anlog 100 Unit/Ml 10 Ml Vial) 10 unit SUBCUT DAILY [facility] Last Admin: 03/17/25 08:07 Dose: 10 unit Documented By: KIM Insulin Human Lispro (Insulin Lispro 100 Unit/Ml 3 Ml Vial) 0 unit SUBCUT QIDACHS [facility]; Protocol Last Admin: 03/17/25 11:57 Dose: 8 unit Documented By: KIM Losartan Potassium (Losartan Potassium 50 Mg Tablet) 100 mg PO DAILY [facility]; Protocol Last Admin: 03/17/25 08:05 Dose: 100 mg Documented By: KIM Magnesium Hydroxide (Milk Of Magnesia 30 Ml Oral.Susp) 30 ml PO DAILY PRN PRN Reason: Constipation Melatonin (Melatonin 3 Mg Tablet) 6 mg PO BEDTIME PRN PRN Reason: Insomnia Methylprednisolone Sodium Succinate (Methylprednisolone Sod Succ 125 Mg/2 Ml Vial) 40 mg IVPUSH Q12H [facility] Last Admin: 03/17/25 08:05 Dose: 40 mg Documented By: KIM Senna (Sennosides 8.6 Mg Tablet) 8.6 mg PO BEDTIME PRN PRN Reason: Constipation Sodium Chloride (0.9 % Sodium Chloride Flush 3 Ml Syringe) 3 ml IVFLUSH QSHIFT [facility] Last Admin: 03/17/25 08:07 Dose: 3 ml Documented By: KIM Labs 03/17/25 06:55 03/17/25 06:55 Labs: Laboratory Results - last 24 hr 03/16/25 03/16/25 03/17/25 17:50 21:26 01:20 MCV MCH MCHC RDW Plt Count MPV Immature Gran % (Auto) Neut % (Auto) Lymph % (Auto) [place] % (Auto) Eos % (Auto) Baso % (Auto) Lymph # (Auto) [place] # (Auto) Eos # (Auto) Baso # (Auto) Abs Immat Gran (auto) Absolute Neuts (auto) Absolute Nucleated RBC Nucleated RBC % (auto) Anion Gap Estim Creat Clear Calc Estimated GFR POC Glucose 343 H 410 H* 288 H Random Glucose Calcium 03/17/25 03/17/25 03/17/25 06:55 07:11 11:12 MCV 81.7 MCH 26.5 L MCHC 32.5 RDW 13.2 Plt Count 261 MPV 10.2 Immature Gran % (Auto) 0.5 H Neut % (Auto) 89.8 H Lymph % (Auto) 8.0 L [place] % (Auto) 1.6 L Eos % (Auto) 0.0 Baso % (Auto) 0.1 Lymph # (Auto) 1.0 L [place] # (Auto) 0.2 Eos # (Auto) 0.0 Baso # (Auto) 0.0 Abs Immat Gran (auto) 0.06 H Absolute Neuts (auto) 11.3 H Absolute Nucleated RBC 0.000 Nucleated RBC % (auto) 0.0 Anion Gap 12 Estim Creat Clear Calc 54.8 Estimated GFR > 60 POC Glucose 303 H 335 H Random Glucose 307 H Calcium 9.0 Microbiology Microbiology Results: Microbiology 03/16/25 05:17 Blood Culture - Preliminary Blood - Venous No growth after 24 hours. 03/16/25 05:06 Blood Culture - Preliminary Blood - Venous No growth after 24 hours. Assessment and Plan (1) COPD exacerbation: Status: Acute Plan Patient is a 85-year-old male with a past medical history significant for HFpEF, CAD, COPD unspecified, CABG, HTN, paroxysmal a fib, type 2 diabetes on insulin and CKD 3, who presented to the ED due to productive cough and shortness of breath for the past 2 weeks. Acute hypoxic respiratory failure with sepsis secondary to acute COPD exacerbation Bronchodilators and steroid and doxy for possible bronchitis ? Alcohol use disorder - blood alcohol level 12 - patient declines any recent alcohol use - monitor CIWA scores Chronic open wound left lower extremity - does not appear infected - wound care consult HFpEF, no acute exacerbation - BNP normal - CXR negative - continue home meds CAD - continue home meds HTN - continue home meds Paroxysmal AFib - EKG with NSR - continue home meds Type 2 diabetes - sliding scale insulin - diabetic diet - Lantus nightly CKD3 - cr at baseline full code VTE prophy: lovenox Patient with acute hypoxic respiratory failure and sepsis secondary to acute COPD exacerbation, requiring admission for at least 2 midnights stay for IV steroids, breathing treatments and antibiotics. Quality Stroke Does the patient have a stroke diagnosis?: No VTE Prior VTE?: No VTE Risk Level:: Medical - moderate - high VTE Device Contraindication: Treatment Not Indicated VTE Drug Contraindication: N/A - Med Ordered
[2025-03-17 15:35] LABS: Glucose, Whole Blood 350 mg/dL (60-115)
[2025-03-17 21:04] LABS: Glucose, Whole Blood 336 mg/dL (60-115)
[2025-03-17] MEDS: Insulin Glargine,Hum.rec.anlog 100 UNIT/ML 10 ML VIAL 28 UNIT SUBCUT (21:43)
[2025-03-18] VITALS (9 sets, daily range): BP systolic 124–158; BP diastolic 63–76; PULSE 86–101; RESP 16–20; TEMP 36.1–36.6; O2SAT 93–95
[2025-03-18] MEDS: guaiFENesin 100 MG/5 ML 5 ML LIQUID PO ×2 (07:32→11:51)
[2025-03-18 07:45] LABS: Glucose, Whole Blood 279 mg/dL (60-115)
[2025-03-18] MEDS: Losartan Potassium 50 MG TABLET 100 MG PO (07:58)
[2025-03-18] MEDS: amLODIPine Besylate 10 MG TABLET PO (07:59)
[2025-03-18] MEDS: 0.9 % Sodium Chloride Flush 3 ML SYRINGE IVFLUSH ×2 (07:59→16:52)
[2025-03-18] MEDS: Cyanocobalamin (Vitamin B-12) 1,000 MCG TABLET 1000 MCG PO (07:59)
[2025-03-18] MEDS: Clopidogrel Bisulfate 75 MG TABLET PO (07:59)
[2025-03-18] MEDS: Furosemide 40 MG TABLET PO (07:59)
[2025-03-18] MEDS: Insulin Lispro 100 UNIT/ML 3 ML VIAL SUBCUT ×4 (08:00→21:50)
[2025-03-18] MEDS: Enoxaparin Sodium 40 MG/0.4 ML SYRINGE SUBCUT (08:01)
[2025-03-18] MEDS: Insulin Glargine,Hum.rec.anlog 100 UNIT/ML 10 ML VIAL 10 UNIT SUBCUT (08:01)
[2025-03-18] MEDS: methylPREDNISolone Sod Succ 125 MG/2 ML VIAL 20 MG IVPUSH ×2 (08:06→21:50)
[2025-03-18] MEDS: Doxycycline Hyclate 100 MG in 0.9 % Sodium Chloride 250 ML 166.67 MG IV ×2 (08:06→22:39)
[2025-03-18] MEDS: levalbuterol HCL 1.25 MG, Ipratropium Bromide 0.5 MG INHALE ×3 (08:14→15:30)
[2025-03-18 11:44] LABS: Glucose, Whole Blood 361 mg/dL (60-115)
--- NOTE | 2025-03-18 12:59 | P.PNIM_ITS ---
Subjective Subjective Date of Service: 03/18/25 Interval History: Less sob, but still coughing alot blood sugars high Physical Exam 2 Vital Signs: Vital Signs: Last Vital Signs Temp 97.8 F 03/18/25 11:58 Pulse 97 03/18/25 11:58 Resp 18 03/18/25 11:58 BP 130/63 03/18/25 11:58 Pulse Ox 95 03/18/25 11:58 O2 Del Method Room Air 03/18/25 11:58 O2 Flow Rate 2 03/17/25 15:47 BMI result Body Mass Index 33.6 Const: Other: General: AO X 3, no acute distress Resp: no wheezing, no rales CVS: S1,S2,RRR GI: +BS, NT, no distention Skin: No rash Neuro: motor grossly intact Psych: appropriate affect Objective Data Active Medications Acetaminophen (Acetaminophen 325 Mg Tablet) 975 mg PO Q6H PRN PRN Reason: Pain, Mild 1-3,fever,headache Al Hydroxide/Mg Hydroxide (Magnesium Hydrox/Alum Hydrox 30 Ml Oral.Susp) 30 ml PO Q6H PRN PRN Reason: Dyspepsia Albuterol Sulfate (Albuterol Sulfate (0.083%) 2.5 Mg/3 Ml Vial.Neb) 2.5 mg INHALE Q2H PRN PRN Reason: Shortness of Breath/Wheezing Amlodipine Besylate (Amlodipine Besylate 10 Mg Tablet) 10 mg PO DAILY [facility]; Protocol Last Admin: 03/18/25 07:59 Dose: 10 mg Documented By: KIM Calcium Carbonate (Calcium Carbonate 750 Mg Tab.Chew) 750 mg PO Q4H PRN PRN Reason: Heartburn Clopidogrel Bisulfate (Clopidogrel Bisulfate 75 Mg Tablet) 75 mg PO DAILY [facility] Last Admin: 03/18/25 07:59 Dose: 75 mg Documented By: KIM Levalbuterol HCl 1.25 mg/ (Ipratropium [place] 0.5 mg) 0 mg INHALE RQ4H WHILE AWAKE [facility] Last Admin: 03/18/25 11:40 Dose: 6 dose Documented By: PEPITO Cyanocobalamin (Cyanocobalamin (Vitamin B-12) 1,000 Mcg Tablet) 1,000 mcg PO DAILY [facility] Last Admin: 03/18/25 07:59 Dose: 1,000 mcg Documented By: KIM Dextrose (Dextrose 50 % 25 Gm/50 Ml Syringe) 25 gm IVPUSH Q15M PRN; Protocol PRN Reason: per Hypoglycemia Standing Ord. Enoxaparin Sodium (Enoxaparin Sodium 40 Mg/0.4 Ml Syringe) 40 mg SUBCUT Q24H [facility] Last Admin: 03/18/25 08:01 Dose: 40 mg Documented By: KIM Furosemide (Furosemide 40 Mg Tablet) 40 mg PO DAILY [facility]; Protocol Last Admin: 03/18/25 07:59 Dose: 40 mg Documented By: KIM Glucose (Glucose Gel 15 Gm Gel..Gram.) 15 gm PO Q15M PRN; Protocol PRN Reason: per Hypoglycemia Standing Ord. Guaifenesin (Guaifenesin 100 Mg/5 Ml 5 Ml Liquid) 5 ml PO Q4H PRN PRN Reason: Cough Last Admin: 03/18/25 11:51 Dose: 5 ml Documented By: KIM Doxycycline Hyclate 100 mg/ (Sodium Chloride) 250 mls @ 166.67 mls/hr IV BID [facility] Last Infusion: 03/18/25 09:36 Dose: Infused Documented By: KIM Insulin Glargine (Insulin Glargine,Hum.Rec.Anlog 100 Unit/Ml 10 Ml Vial) 10 unit SUBCUT DAILY [facility] Last Admin: 03/18/25 08:01 Dose: 10 unit Documented By: KIM Insulin Glargine (Insulin Glargine,Hum.Rec.Anlog 100 Unit/Ml 10 Ml Vial) 35 unit SUBCUT BEDTIME [facility] Insulin Human Lispro (Insulin Lispro 100 Unit/Ml 3 Ml Vial) 0 unit SUBCUT QIDACHS [facility]; Protocol Last Admin: 03/18/25 11:51 Dose: 10 unit Documented By: KIM Losartan Potassium (Losartan Potassium 50 Mg Tablet) 100 mg PO DAILY [facility]; Protocol Last Admin: 03/18/25 07:58 Dose: 100 mg Documented By: KIM Magnesium Hydroxide (Milk Of Magnesia 30 Ml Oral.Susp) 30 ml PO DAILY PRN PRN Reason: Constipation Melatonin (Melatonin 3 Mg Tablet) 6 mg PO BEDTIME PRN PRN Reason: Insomnia Methylprednisolone Sodium Succinate (Methylprednisolone Sod Succ 125 Mg/2 Ml Vial) 20 mg IVPUSH Q12H [facility] Last Admin: 03/18/25 08:06 Dose: 20 mg Documented By: KIM Senna (Sennosides 8.6 Mg Tablet) 8.6 mg PO BEDTIME PRN PRN Reason: Constipation Sodium Chloride (0.9 % Sodium Chloride Flush 3 Ml Syringe) 3 ml IVFLUSH QSHIFT [facility] Last Admin: 03/18/25 07:59 Dose: 3 ml Documented By: KIM Labs 03/17/25 06:55 03/17/25 06:55 Labs: Laboratory Results - last 24 hr 03/17/25 03/17/25 03/18/25 15:06 21:00 07:41 POC Glucose 350 H* 336 H 279 H 03/18/25 11:39 POC Glucose 361 H* Microbiology Microbiology Results: Microbiology 03/16/25 05:17 Blood Culture - Preliminary Blood - Venous No growth after 48 hours. 03/16/25 05:06 Blood Culture - Preliminary Blood - Venous No growth after 48 hours. Assessment and Plan (1) COPD exacerbation: Status: Acute Plan Patient is a 85-year-old male with a past medical history significant for HFpEF, CAD, COPD unspecified, CABG, HTN, paroxysmal a fib, type 2 diabetes on insulin and CKD 3, who presented to the ED due to productive cough and shortness of breath for the past 2 weeks. Acute hypoxic respiratory failure with sepsis secondary to acute COPD exacerbation Bronchodilators and steroid at reduced dose and doxy for possible bronchitis Alcohol use disorder, etoh level 12 ciwa, no sings of withdrawal at this time Chronic open wound left lower extremity does not appear infected wound care consult HFpEF, no acute exacerbation, bnp normal continue lasix CAD plavix HTN Losartant and Lasix Paroxysmal AFib in NSR, no anticoagulation Type 2 diabetes, hypglycemia Lantus 10 in am and 35 at HS, monitor CKD3 - cr at baseline full code VTE prophy: lovenox Patient with acute hypoxic respiratory failure and sepsis secondary to acute COPD exacerbation, requiring admission for at least 2 midnights stay for IV steroids, breathing treatments and antibiotics. Quality Stroke Does the patient have a stroke diagnosis?: No VTE Prior VTE?: No VTE Risk Level:: Medical - moderate - high VTE Device Contraindication: Treatment Not Indicated VTE Drug Contraindication: N/A - Med Ordered
[2025-03-18 15:55] LABS: Glucose, Whole Blood 420 mg/dL (60-115)
[2025-03-18] MEDS: Insulin Regular, Human 100 UNIT/ML 10 ML VIAL 7 UNIT IVPUSH (16:51)
[2025-03-18 18:36] LABS: Glucose, Whole Blood 458 mg/dL (60-115)
[2025-03-18] MEDS: Insulin Regular, Human 100 UNIT/ML 10 ML VIAL 10 UNIT IVPUSH (18:49)
[2025-03-18 20:17] LABS: Glucose, Whole Blood 337 mg/dL (60-115)
[2025-03-18] MEDS: Insulin Glargine,Hum.rec.anlog 100 UNIT/ML 10 ML VIAL 35 UNIT SUBCUT (21:50)
[2025-03-18 22:36] LABS: Glucose, Whole Blood 285 mg/dL (60-115)
[2025-03-19] VITALS (8 sets, daily range): BP systolic 110–147; BP diastolic 62–75; PULSE 82–104; RESP 16–18; TEMP 36.2–36.6; O2SAT 92–98
[2025-03-19 07:06] LABS: Glucose, Whole Blood 215 mg/dL (60-115)
[2025-03-19] MEDS: levalbuterol HCL 1.25 MG, Ipratropium Bromide 0.5 MG INHALE ×2 (07:59→11:26)
[2025-03-19] MEDS: methylPREDNISolone Sod Succ 125 MG/2 ML VIAL 20 MG IVPUSH ×2 (10:17→20:20)
[2025-03-19] MEDS: Insulin Glargine,Hum.rec.anlog 100 UNIT/ML 10 ML VIAL 10 UNIT SUBCUT (10:17)
[2025-03-19] MEDS: Furosemide 40 MG TABLET PO (10:18)
[2025-03-19] MEDS: Losartan Potassium 50 MG TABLET 100 MG PO (10:18)
[2025-03-19] MEDS: Clopidogrel Bisulfate 75 MG TABLET PO (10:18)
[2025-03-19] MEDS: amLODIPine Besylate 10 MG TABLET PO (10:18)
[2025-03-19] MEDS: Cyanocobalamin (Vitamin B-12) 1,000 MCG TABLET 1000 MCG PO (10:18)
[2025-03-19] MEDS: Insulin Lispro 100 UNIT/ML 3 ML VIAL SUBCUT ×4 (10:18→21:36)
[2025-03-19] MEDS: Doxycycline Hyclate 100 MG in 0.9 % Sodium Chloride 250 ML 166.67 MG IV (10:19)
[2025-03-19] MEDS: Enoxaparin Sodium 40 MG/0.4 ML SYRINGE SUBCUT (10:20)
[2025-03-19] MEDS: 0.9 % Sodium Chloride Flush 3 ML SYRINGE IVFLUSH ×3 (10:20→20:21)
[2025-03-19 11:14] LABS: Glucose, Whole Blood 304 mg/dL (60-115)
--- NOTE | 2025-03-19 12:48 | P.PNIM_ITS ---
Subjective Subjective Date of Service: 03/19/25 Interval History: Overal he is feeling better today, less sob still couging and has venricular ectopies Physical Exam 2 Vital Signs: Vital Signs: Last Vital Signs Temp 97.9 F 03/19/25 11:07 Pulse 87 03/19/25 11:27 Resp 18 03/19/25 11:27 BP 111/66 03/19/25 11:07 Pulse Ox 97 03/19/25 11:07 O2 Del Method Room Air 03/19/25 11:07 O2 Flow Rate 2 03/17/25 15:47 BMI result Body Mass Index 33.6 Const: Other: General: AO X 3, no acute distress Resp: no wheezing, no rales CVS: S1,S2,RRR GI: +BS, NT, no distention Skin: No rash Neuro: motor grossly intact Psych: appropriate affect Objective Data Active Medications Acetaminophen (Acetaminophen 325 Mg Tablet) 975 mg PO Q6H PRN PRN Reason: Pain, Mild 1-3,fever,headache Al Hydroxide/Mg Hydroxide (Magnesium Hydrox/Alum Hydrox 30 Ml Oral.Susp) 30 ml PO Q6H PRN PRN Reason: Dyspepsia Albuterol Sulfate (Albuterol Sulfate (0.083%) 2.5 Mg/3 Ml Vial.Neb) 2.5 mg INHALE Q2H PRN PRN Reason: Shortness of Breath/Wheezing Amlodipine Besylate (Amlodipine Besylate 10 Mg Tablet) 10 mg PO DAILY [facility]; Protocol Last Admin: 03/19/25 10:18 Dose: 10 mg Documented By: TALAT Calcium Carbonate (Calcium Carbonate 750 Mg Tab.Chew) 750 mg PO Q4H PRN PRN Reason: Heartburn Clopidogrel Bisulfate (Clopidogrel Bisulfate 75 Mg Tablet) 75 mg PO DAILY [facility] Last Admin: 03/19/25 10:18 Dose: 75 mg Documented By: TALAT Levalbuterol HCl 1.25 mg/ (Ipratropium [place] 0.5 mg) 0 mg INHALE RQ4H WHILE AWAKE [facility] Last Admin: 03/19/25 11:26 Dose: 5 dose Documented By: PEPITO Cyanocobalamin (Cyanocobalamin (Vitamin B-12) 1,000 Mcg Tablet) 1,000 mcg PO DAILY [facility] Last Admin: 03/19/25 10:18 Dose: 1,000 mcg Documented By: TALAT Dextrose (Dextrose 50 % 25 Gm/50 Ml Syringe) 25 gm IVPUSH Q15M PRN; Protocol PRN Reason: per Hypoglycemia Standing Ord. Enoxaparin Sodium (Enoxaparin Sodium 40 Mg/0.4 Ml Syringe) 40 mg SUBCUT Q24H [facility] Last Admin: 03/19/25 10:20 Dose: 40 mg Documented By: TALAT Furosemide (Furosemide 40 Mg Tablet) 40 mg PO DAILY [facility]; Protocol Last Admin: 03/19/25 10:18 Dose: 40 mg Documented By: TALAT Glucose (Glucose Gel 15 Gm Gel..Gram.) 15 gm PO Q15M PRN; Protocol PRN Reason: per Hypoglycemia Standing Ord. Guaifenesin (Guaifenesin 100 Mg/5 Ml 5 Ml Liquid) 5 ml PO Q4H PRN PRN Reason: Cough Last Admin: 03/18/25 11:51 Dose: 5 ml Documented By: KIM Doxycycline Hyclate 100 mg/ (Sodium Chloride) 250 mls @ 166.67 mls/hr IV BID [facility] Last Admin: 03/19/25 10:19 Dose: 166.67 mls/hr Documented By: TALAT Insulin Glargine (Insulin Glargine,Hum.Rec.Anlog 100 Unit/Ml 10 Ml Vial) 10 unit SUBCUT DAILY [facility] Last Admin: 03/19/25 10:17 Dose: 10 unit Documented By: TALAT Insulin Glargine (Insulin Glargine,Hum.Rec.Anlog 100 Unit/Ml 10 Ml Vial) 35 unit SUBCUT BEDTIME [facility] Last Admin: 03/18/25 21:50 Dose: 35 unit Documented By: SHIVANI-NELSONSK Insulin Human Lispro (Insulin Lispro 100 Unit/Ml 3 Ml Vial) 0 unit SUBCUT QIDACHS [facility]; Protocol Last Admin: 03/19/25 12:38 Dose: 6 unit Documented By: TALAT Losartan Potassium (Losartan Potassium 50 Mg Tablet) 100 mg PO DAILY [facility]; Protocol Last Admin: 03/19/25 10:18 Dose: 100 mg Documented By: TALAT Magnesium Hydroxide (Milk Of Magnesia 30 Ml Oral.Susp) 30 ml PO DAILY PRN PRN Reason: Constipation Melatonin (Melatonin 3 Mg Tablet) 6 mg PO BEDTIME PRN PRN Reason: Insomnia Methylprednisolone Sodium Succinate (Methylprednisolone Sod Succ 125 Mg/2 Ml Vial) 20 mg IVPUSH Q12H [facility] Last Admin: 03/19/25 10:17 Dose: 20 mg Documented By: TALAT Senna (Sennosides 8.6 Mg Tablet) 8.6 mg PO BEDTIME PRN PRN Reason: Constipation Sodium Chloride (0.9 % Sodium Chloride Flush 3 Ml Syringe) 3 ml IVFLUSH QSHIFT [facility] Last Admin: 03/19/25 10:20 Dose: 3 ml Documented By: TALAT Labs 03/17/25 06:55 03/17/25 06:55 Labs: Laboratory Results - last 24 hr 03/18/25 03/18/25 03/18/25 15:52 18:33 20:14 POC Glucose 420 H* 458 H* 337 H 03/18/25 03/19/25 03/19/25 22:30 07:01 11:09 POC Glucose 285 H 215 H 304 H Microbiology Microbiology Results: Microbiology 03/16/25 05:17 Blood Culture - Preliminary Blood - Venous No growth after 48 hours. 03/16/25 05:06 Blood Culture - Preliminary Blood - Venous No growth after 48 hours. Assessment and Plan (1) COPD exacerbation: Status: Acute Plan Patient is a 85-year-old male with a past medical history significant for HFpEF, CAD, COPD unspecified, CABG, HTN, paroxysmal a fib, type 2 diabetes on insulin and CKD 3, who presented to the ED due to productive cough and shortness of breath for the past 2 weeks. Acute hypoxic respiratory failure with sepsis secondary to acute COPD exacerbation, hypoxia resolved Bronchodilators and steroid at reduced dose and doxy for possible bronchitis Alcohol use disorder, etoh level 12 ciwa, no sings of withdrawal at this time Chronic open wound left lower extremity does not appear infected wound care consult HFpEF, no acute exacerbation, bnp normal continue lasix CAD plavix HTN Losartant and Lasix Paroxysmal AFib in NSR, no anticoagulation Type 2 diabetes, hypglycemia Lantus 10 in am and 35 at HS, monitor CKD3 - cr at baseline Ventricular ectoopies monitor, check K, mag full code VTE prophy: lovenox PT eval tomorrow Quality Stroke Does the patient have a stroke diagnosis?: No VTE Prior VTE?: No VTE Risk Level:: Medical - moderate - high VTE Device Contraindication: Treatment Not Indicated VTE Drug Contraindication: N/A - Med Ordered
[2025-03-19 13:20] LABS: Anion Gap 16 (12-20); Blood Urea Nitrogen 31 mg/dL (9-16); Carbon Dioxide 23 mmol/L (22-29); Chloride 102 mmol/L (96-108); Creatinine Clr Calc Pharmacy 49.2; Estimated Glomerular Filt Rate 54; Magnesium 1.8 mg/dL (1.6-2.6); Potassium 4.1 mmol/L (3.3-5.1); Sodium 137 mmol/L (135-145)
[2025-03-19 13:24] LABS: Glucose Random 447 mg/dL (60-115)
[2025-03-19 15:36] LABS: Glucose, Whole Blood 387 mg/dL (60-115)
[2025-03-19 21:19] LABS: Glucose, Whole Blood 405 mg/dL (60-115)
[2025-03-19] MEDS: Doxycycline Monohydrate 100 MG CAPSULE PO (21:36)
[2025-03-19] MEDS: Insulin Glargine,Hum.rec.anlog 100 UNIT/ML 10 ML VIAL 35 UNIT SUBCUT (21:37)
[2025-03-20] VITALS (7 sets, daily range): BP systolic 125–162; BP diastolic 63–83; PULSE 77–96; RESP 16–22; TEMP 36.3–36.9; O2SAT 96–98
[2025-03-20 07:52] LABS: Glucose, Whole Blood 242 mg/dL (60-115)
[2025-03-20] MEDS: Insulin Glargine,Hum.rec.anlog 100 UNIT/ML 10 ML VIAL 10 UNIT SUBCUT (08:30)
[2025-03-20] MEDS: Insulin Lispro 100 UNIT/ML 3 ML VIAL SUBCUT ×4 (08:30→21:26)
[2025-03-20] MEDS: amLODIPine Besylate 10 MG TABLET PO (08:31)
[2025-03-20] MEDS: Furosemide 40 MG TABLET PO (08:31)
[2025-03-20] MEDS: Doxycycline Monohydrate 100 MG CAPSULE PO ×2 (08:31→21:34)
[2025-03-20] MEDS: Losartan Potassium 50 MG TABLET 100 MG PO (08:31)
[2025-03-20] MEDS: Enoxaparin Sodium 40 MG/0.4 ML SYRINGE SUBCUT (08:31)
[2025-03-20] MEDS: Cyanocobalamin (Vitamin B-12) 1,000 MCG TABLET 1000 MCG PO (08:31)
[2025-03-20] MEDS: methylPREDNISolone Sod Succ 125 MG/2 ML VIAL 20 MG IVPUSH (08:31)
[2025-03-20] MEDS: Clopidogrel Bisulfate 75 MG TABLET PO (08:31)
[2025-03-20] MEDS: 0.9 % Sodium Chloride Flush 3 ML SYRINGE IVFLUSH (08:31)
--- NOTE | 2025-03-20 10:47 | MHC.CM.PN ---
Addendum entered by Inés London 03/20/25 15:12: Pt brought it to this CM's attention that he did not have keys to get into his home. This CM called and spoke with pts HCP Katlin, she states he shouldn't be going home since his significant other who helps care for him is in rehab at this time. CM met with pt to discuss the situation and he is agreeable to going to [facility][1], referral placed, awaiting bed offer. Original Note: This CM met with pt to discuss going to [facility] (per PT evaluation), pt declines to go to [facility], stating he would like to go home.
[2025-03-20 11:23] LABS: Glucose, Whole Blood 342 mg/dL (60-115)
[2025-03-20 16:18] LABS: Glucose, Whole Blood 220 mg/dL (60-115)
--- NOTE | 2025-03-20 16:33 | P.PNIM_ITS ---
Subjective Subjective Date of Service: 03/20/25 Interval History: He's feeling better, less cough Physical Exam 2 Vital Signs: Vital Signs: Last Vital Signs Temp 97.3 F 03/20/25 15:36 Pulse 81 03/20/25 15:36 Resp 18 03/20/25 15:36 BP 129/74 03/20/25 15:36 Pulse Ox 98 03/20/25 15:36 O2 Del Method Room Air 03/20/25 15:36 O2 Flow Rate 2 03/17/25 15:47 BMI result Body Mass Index 33.6 Const: Other: General: AO X 3, no acute distress Resp: no wheezing, no rales CVS: S1,S2,RRR GI: +BS, NT, no distention Skin: No rash Neuro: motor grossly intact Psych: appropriate affect Objective Data Active Medications Acetaminophen (Acetaminophen 325 Mg Tablet) 975 mg PO Q6H PRN PRN Reason: Pain, Mild 1-3,fever,headache Al Hydroxide/Mg Hydroxide (Magnesium Hydrox/Alum Hydrox 30 Ml Oral.Susp) 30 ml PO Q6H PRN PRN Reason: Dyspepsia Albuterol Sulfate (Albuterol Sulfate (0.083%) 2.5 Mg/3 Ml Vial.Neb) 2.5 mg INHALE Q2H PRN PRN Reason: Shortness of Breath/Wheezing Amlodipine Besylate (Amlodipine Besylate 10 Mg Tablet) 10 mg PO DAILY [facility]; Protocol Last Admin: 03/20/25 08:31 Dose: 10 mg Documented By: MARIANELA Calcium Carbonate (Calcium Carbonate 750 Mg Tab.Chew) 750 mg PO Q4H PRN PRN Reason: Heartburn Clopidogrel Bisulfate (Clopidogrel Bisulfate 75 Mg Tablet) 75 mg PO DAILY [facility] [place] Last Admin: 03/20/25 08:31 Dose: 75 mg Documented By: MARIANELA Levalbuterol HCl 1.25 mg/ (Ipratropium [place] 0.5 mg) 0 mg INHALE RQ4H WHILE AWAKE [facility] [place] Last Admin: 03/20/25 15:27 Dose: Not Given Documented By: LIO Non-Admin Reason: Patient Refused Cyanocobalamin (Cyanocobalamin (Vitamin B-12) 1,000 Mcg Tablet) 1,000 mcg PO DAILY [facility] [place] Last Admin: 03/20/25 08:31 Dose: 1,000 mcg Documented By: MARIANELA Dextrose (Dextrose 50 % 25 Gm/50 Ml Syringe) 25 gm IVPUSH Q15M PRN; Protocol PRN Reason: per Hypoglycemia Standing Ord. Doxycycline Monohydrate (Doxycycline Monohydrate 100 Mg Capsule) 100 mg PO Q12H [facility] [place] Last Admin: 03/20/25 08:31 Dose: 100 mg Documented By: MARIANELA Enoxaparin Sodium (Enoxaparin Sodium 40 Mg/0.4 Ml Syringe) 40 mg SUBCUT Q24H [facility] [place] Last Admin: 03/20/25 08:31 Dose: 40 mg Documented By: MARIANELA Furosemide (Furosemide 40 Mg Tablet) 40 mg PO DAILY [facility]; Protocol Last Admin: 03/20/25 08:31 Dose: 40 mg Documented By: MARIANELA Glucose (Glucose Gel 15 Gm Gel..Gram.) 15 gm PO Q15M PRN; Protocol PRN Reason: per Hypoglycemia Standing Ord. Guaifenesin (Guaifenesin 100 Mg/5 Ml 5 Ml Liquid) 5 ml PO Q4H PRN PRN Reason: Cough Last Admin: 03/18/25 11:51 Dose: 5 ml Documented By: KIM Insulin Glargine (Insulin Glargine,Hum.Rec.Anlog 100 Unit/Ml 10 Ml Vial) 10 unit SUBCUT DAILY [facility] [place] Last Admin: 03/20/25 08:30 Dose: 10 unit Documented By: MARIANELA Insulin Glargine (Insulin Glargine,Hum.Rec.Anlog 100 Unit/Ml 10 Ml Vial) 35 unit SUBCUT BEDTIME [facility] [place] Last Admin: 03/19/25 21:37 Dose: 35 unit Documented By: SIMONE Comments: reported to dr. snow Insulin Human Lispro (Insulin Lispro 100 Unit/Ml 3 Ml Vial) 0 unit SUBCUT QIDACHS [facility] [place]; Protocol Last Admin: 03/20/25 12:07 Dose: 8 unit Documented By: CTORRNeel Losartan Potassium (Losartan Potassium 50 Mg Tablet) 100 mg PO DAILY [facility] [place]; Protocol Last Admin: 03/20/25 08:31 Dose: 100 mg Documented By: MARIANELA Magnesium Hydroxide (Milk Of Magnesia 30 Ml Oral.Susp) 30 ml PO DAILY PRN PRN Reason: Constipation Melatonin (Melatonin 3 Mg Tablet) 6 mg PO BEDTIME PRN PRN Reason: Insomnia Methylprednisolone Sodium Succinate (Methylprednisolone Sod Succ 125 Mg/2 Ml Vial) 20 mg IVPUSH Q12H [facility] [place] Last Admin: 03/20/25 08:31 Dose: 20 mg Documented By: MARIANELA Cordovana (Sennosides 8.6 Mg Tablet) 8.6 mg PO BEDTIME PRN PRN Reason: Constipation Sodium Chloride (0.9 % Sodium Chloride Flush 3 Ml Syringe) 3 ml IVFLUSH QSHIFT [facility] [place] Last Admin: 03/20/25 16:15 Dose: Not Given Documented By: IJEOMA Non-Admin Reason: No Access Labs 03/17/25 06:55 03/19/25 12:50 Labs: Laboratory Results - last 24 hr 03/19/25 03/20/25 03/20/25 21:15 07:28 10:53 POC Glucose 405 H* 242 H 342 H 03/20/25 16:05 POC Glucose 220 H Microbiology Microbiology Results: Microbiology 03/16/25 05:17 Blood Culture - Preliminary Blood - Venous No growth after 48 hours. 03/16/25 05:06 Blood Culture - Preliminary Blood - Venous No growth after 48 hours. Assessment and Plan (1) COPD exacerbation: Status: Acute Plan Patient is a 85-year-old male with a past medical history significant for HFpEF, CAD, COPD unspecified, CABG, HTN, paroxysmal a fib, type 2 diabetes on insulin and CKD 3, who presented to the ED due to productive cough and shortness of breath for the past 2 weeks. Acute hypoxic respiratory failure with sepsis secondary to acute COPD exacerbation, hypoxia resolved Bronchodilators and steroid at reduced dose and doxy for possible bronchitis Alcohol use disorder, etoh level 12 ciwa, no sings of withdrawal at this time Chronic open wound left lower extremity does not appear infected wound care consult HFpEF, no acute exacerbation, bnp normal continue lasix CAD plavix HTN Losartant and Lasix Paroxysmal AFib in NSR, no anticoagulation Type 2 diabetes, hypglycemia Lantus 10 in am and 35 at HS, monitor CKD3 - cr at baseline Ventricular ectoopies monitor, check K, mag full code VTE prophy: lovenox PT recommmends STR, waiting for a bed Quality Stroke Does the patient have a stroke diagnosis?: No VTE Prior VTE?: No VTE Risk Level:: Medical - moderate - high VTE Device Contraindication: Treatment Not Indicated VTE Drug Contraindication: N/A - Med Ordered
[2025-03-20 20:12] LABS: Glucose, Whole Blood 238 mg/dL (60-115)
[2025-03-20] MEDS: Insulin Glargine,Hum.rec.anlog 100 UNIT/ML 10 ML VIAL 40 UNIT SUBCUT (21:26)
[2025-03-21 03:54] VITALS: BP 137/73; PULSE 70; RESP 17; TEMP 36.4; O2SAT 96
[2025-03-21 06:57] VITALS: BP 132/75; PULSE 79; RESP 18; TEMP 36.7; O2SAT 97
[2025-03-21 06:59] LABS: Glucose, Whole Blood 185 mg/dL (60-115)
[2025-03-21] MEDS: Insulin Glargine,Hum.rec.anlog 100 UNIT/ML 10 ML VIAL 10 UNIT SUBCUT (09:45)
[2025-03-21] MEDS: Enoxaparin Sodium 40 MG/0.4 ML SYRINGE SUBCUT (09:46)
[2025-03-21] MEDS: Clopidogrel Bisulfate 75 MG TABLET PO (09:46)
[2025-03-21] MEDS: amLODIPine Besylate 10 MG TABLET PO (09:46)
[2025-03-21] MEDS: Cyanocobalamin (Vitamin B-12) 1,000 MCG TABLET 1000 MCG PO (09:46)
[2025-03-21] MEDS: Insulin Lispro 100 UNIT/ML 3 ML VIAL SUBCUT ×4 (09:46→21:14)
[2025-03-21] MEDS: Losartan Potassium 50 MG TABLET 100 MG PO (09:47)
[2025-03-21] MEDS: Furosemide 40 MG TABLET PO (09:47)
[2025-03-21] MEDS: Doxycycline Monohydrate 100 MG CAPSULE PO ×2 (09:47→19:48)
[2025-03-21 11:12] VITALS: BP 134/58; PULSE 64; RESP 16; TEMP 36.7; O2SAT 95
[2025-03-21 11:16] LABS: Glucose, Whole Blood 182 mg/dL (60-115)
--- NOTE | 2025-03-21 13:20 | P.PNIM_ITS ---
Subjective Subjective Date of Service: 03/21/25 Interval History: Feels better, no sob Physical Exam 2 Vital Signs: Vital Signs: Last Vital Signs Temp 98.1 F 03/21/25 11:12 Pulse 64 03/21/25 11:12 Resp 16 03/21/25 11:12 BP 134/58 L 03/21/25 11:12 Pulse Ox 95 03/21/25 11:12 O2 Del Method Room Air 03/21/25 11:12 O2 Flow Rate 2 03/17/25 15:47 BMI result Body Mass Index 33.6 Const: Other: General: AO X 3, no acute distress Resp: no wheezing, no rales CVS: S1,S2,RRR GI: +BS, NT, no distention Skin: No rash Neuro: motor grossly intact Psych: appropriate affect Objective Data Active Medications Acetaminophen (Acetaminophen 325 Mg Tablet) 975 mg PO Q6H PRN PRN Reason: Pain, Mild 1-3,fever,headache Al Hydroxide/Mg Hydroxide (Magnesium Hydrox/Alum Hydrox 30 Ml Oral.Susp) 30 ml PO Q6H PRN PRN Reason: Dyspepsia Albuterol Sulfate (Albuterol Sulfate (0.083%) 2.5 Mg/3 Ml Vial.Neb) 2.5 mg INHALE Q2H PRN PRN Reason: Shortness of Breath/Wheezing Amlodipine Besylate (Amlodipine Besylate 10 Mg Tablet) 10 mg PO DAILY [facility]; Protocol Last Admin: 03/21/25 09:46 Dose: 10 mg Documented By: TALAT Calcium Carbonate (Calcium Carbonate 750 Mg Tab.Chew) 750 mg PO Q4H PRN PRN Reason: Heartburn Clopidogrel Bisulfate (Clopidogrel Bisulfate 75 Mg Tablet) 75 mg PO DAILY [facility] Last Admin: 03/21/25 09:46 Dose: 75 mg Documented By: TALAT Levalbuterol HCl 1.25 mg/ (Ipratropium [place] 0.5 mg) 0 mg INHALE RQ4H WHILE AWAKE [facility] Last Admin: 03/21/25 11:23 Dose: Not Given Documented By: PEPITO Non-Admin Reason: Patient Refused Cyanocobalamin (Cyanocobalamin (Vitamin B-12) 1,000 Mcg Tablet) 1,000 mcg PO DAILY [facility] Last Admin: 03/21/25 09:46 Dose: 1,000 mcg Documented By: TALAT Dextrose (Dextrose 50 % 25 Gm/50 Ml Syringe) 25 gm IVPUSH Q15M PRN; Protocol PRN Reason: per Hypoglycemia Standing Ord. Doxycycline Monohydrate (Doxycycline Monohydrate 100 Mg Capsule) 100 mg PO Q12H [facility] Last Admin: 03/21/25 09:47 Dose: 100 mg Documented By: TALAT Enoxaparin Sodium (Enoxaparin Sodium 40 Mg/0.4 Ml Syringe) 40 mg SUBCUT Q24H [facility] Last Admin: 03/21/25 09:46 Dose: 40 mg Documented By: TALAT Furosemide (Furosemide 40 Mg Tablet) 40 mg PO DAILY [facility]; Protocol Last Admin: 03/21/25 09:47 Dose: 40 mg Documented By: TALAT Glucose (Glucose Gel 15 Gm Gel..Gram.) 15 gm PO Q15M PRN; Protocol PRN Reason: per Hypoglycemia Standing Ord. Guaifenesin (Guaifenesin 100 Mg/5 Ml 5 Ml Liquid) 5 ml PO Q4H PRN PRN Reason: Cough Last Admin: 03/18/25 11:51 Dose: 5 ml Documented By: KIM Insulin Glargine (Insulin Glargine,Hum.Rec.Anlog 100 Unit/Ml 10 Ml Vial) 10 unit SUBCUT DAILY [facility] Last Admin: 03/21/25 09:45 Dose: 10 unit Documented By: TALAT Insulin Glargine (Insulin Glargine,Hum.Rec.Anlog 100 Unit/Ml 10 Ml Vial) 40 unit SUBCUT BEDTIME [facility] Last Admin: 03/20/25 21:26 Dose: 40 unit Documented By: NATALIA Insulin Human Lispro (Insulin Lispro 100 Unit/Ml 3 Ml Vial) 0 unit SUBCUT QIDACHS [facility]; Protocol Last Admin: 03/21/25 09:46 Dose: 2 unit Documented By: TALAT Losartan Potassium (Losartan Potassium 50 Mg Tablet) 100 mg PO DAILY [facility]; Protocol Last Admin: 03/21/25 09:47 Dose: 100 mg Documented By: TALAT Magnesium Hydroxide (Milk Of Magnesia 30 Ml Oral.Susp) 30 ml PO DAILY PRN PRN Reason: Constipation Melatonin (Melatonin 3 Mg Tablet) 6 mg PO BEDTIME PRN PRN Reason: Insomnia Senna (Sennosides 8.6 Mg Tablet) 8.6 mg PO BEDTIME PRN PRN Reason: Constipation Sodium Chloride (0.9 % Sodium Chloride Flush 3 Ml Syringe) 3 ml IVFLUSH QSHIFT [facility] Last Admin: 03/21/25 09:47 Dose: Not Given Documented By: TALAT Non-Admin Reason: No Access Labs 03/17/25 06:55 03/19/25 12:50 Labs: Laboratory Results - last 24 hr 03/20/25 03/20/25 03/21/25 16:05 20:08 06:56 POC Glucose 220 H 238 H 185 H 03/21/25 11:11 POC Glucose 182 H Microbiology Microbiology Results: Microbiology 03/16/25 05:17 Blood Culture - Final Blood - Venous No growth after 5 days. 03/16/25 05:06 Blood Culture - Final Blood - Venous No growth after 5 days. Assessment and Plan (1) COPD exacerbation: Status: Acute Plan Patient is a 85-year-old male with a past medical history significant for HFpEF, CAD, COPD unspecified, CABG, HTN, paroxysmal a fib, type 2 diabetes on insulin and CKD 3, who presented to the ED due to productive cough and shortness of breath for the past 2 weeks. Acute hypoxic respiratory failure with sepsis secondary to acute COPD exacerbation, hypoxia resolved Bronchodilators and steroid at reduced dose and doxy for possible bronchitis Alcohol use disorder, etoh level 12 ciwa, no sings of withdrawal at this time Chronic open wound left lower extremity does not appear infected wound care consult HFpEF, no acute exacerbation, bnp normal continue lasix CAD plavix HTN Losartant and Lasix Paroxysmal AFib in NSR, no anticoagulation Type 2 diabetes, hypglycemia Lantus 10 in am and 40 at HS, monitor CKD3 - cr at baseline Ventricular ectoopies monitor, check K, mag full code VTE prophy: lovenox PT recommmends STR, waiting for a bed Quality Stroke Does the patient have a stroke diagnosis?: No VTE Prior VTE?: No VTE Risk Level:: Medical - moderate - high VTE Device Contraindication: Treatment Not Indicated VTE Drug Contraindication: N/A - Med Ordered
[2025-03-21 15:07] VITALS: BP 127/66; PULSE 79; RESP 18; TEMP 36.7; O2SAT 96
[2025-03-21 16:04] LABS: Glucose, Whole Blood 224 mg/dL (60-115)
[2025-03-21 19:42] VITALS: BP 124/64; PULSE 83; RESP 16; TEMP 36; O2SAT 95
[2025-03-21 21:06] LABS: Glucose, Whole Blood 165 mg/dL (60-115)
[2025-03-21] MEDS: Insulin Glargine,Hum.rec.anlog 100 UNIT/ML 10 ML VIAL 40 UNIT SUBCUT (21:14)
[2025-03-21 23:45] VITALS: BP 109/63; PULSE 53; RESP 20; TEMP 36.2; O2SAT 97
[2025-03-22 04:00] VITALS: BP 105/60; PULSE 73; RESP 18; TEMP 36.1; O2SAT 96
[2025-03-22 07:36] LABS: Glucose, Whole Blood 83 mg/dL (60-115)
[2025-03-22 08:00] VITALS: BP 97/61; PULSE 92; RESP 18; TEMP 36.2; O2SAT 99
--- NOTE | 2025-03-22 09:07 | PM.DS ---
DS: Providers Provider Date of Service: 03/22/25 Date of admission: 03/16/25 06:52 Date of discharge: 03/22/25 Primary care physician: SYED Rubi Consults: 03/16/25 07:33 Consult to Wound Care Routine Reason for consultation: LLE wound DS: Diagnosis Discharge Diagnosis (1) COPD exacerbation: Status: Acute DS: Summary Hospital Course Hospital Course: admission hpi Chief Complaint: SOB Patient is a 85-year-old male with a past medical history significant for HFpEF, CAD, COPD unspecified, CABG, HTN, paroxysmal a fib, type 2 diabetes on insulin and CKD 3, who presented to the ED due to productive cough and shortness of breath for the past 2 weeks. Patient denies any fever, chills, nausea or vomiting. No abdominal pain or urinary symptoms. He denies any recent sick contacts. He also denies frequent alcohol use. Hospital course: Patient is a 85-year-old male with a past medical history significant for HFpEF, CAD, COPD unspecified, CABG, HTN, paroxysmal a fib, type 2 diabetes on insulin and CKD 3, who presented to the ED due to productive cough and shortness of breath for the past 2 weeks. Acute hypoxic respiratory failure with sepsis secondary to acute COPD exacerbation, hypoxia resolved, He was treated with bronchodilators by Nebs, IV steroid, later changed to oral steroid and Doxycyline for possible bronchitis. He has made signficnat improvment, no longer hypoxic and his symptoms much improved. He has completed 5 days steroid and will complete a total of 7 days of doxycyline. Bronchodilators and steroid at reduced dose and doxy for possible bronchitis Alcohol use disorder, etoh level 12, Did not go into withdrawal by [facility] monitoring Chronic open wound left lower extremity does not appear infected wound care consult: local wound care, and doxycyline as above HFpEF, no acute exacerbation, bnp normal continue lasix CAD plavix HTN Losartant and Lasix Paroxysmal AFib in NSR, no anticoagulation Type 2 diabetes, hypglycemia Lantus 10 in am and 40 at HS, monitor CKD3 - cr at baseline Ventricular ectoopies monitor, check K, mag Time Attestation Discharge Coordination Time (in mins): 40 Quality: Safe Use of Opioids Does Pt have an Active Cancer Diagnosis on the Problem List?: No Quality: Stroke Does the patient have a stroke diagnosis?: No Physical Exam Vital Signs: Vital Signs: Selected Entries 03/22/25 08:00 Temperature 97.1 F Pulse Rate 92 Respiratory Rate 18 Blood Pressure 97/61 Pulse Oximetry 99 Oxygen Delivery Me thod Room Air DS: Data Data Completed and Pending Labs on day of discharge: Laboratory Results - last 24 hr 03/20/25 03/20/25 03/21/25 16:05 20:08 06:56 POC Glucose 220 H 238 H 185 H 03/21/25 11:11 POC Glucose 182 H Discharge Plan Discharge Anticipated Discharge Date/Time: 03/22/25 09:07 Patient Disposition: Xfer SNF Discharge Diagnosis: Acue copd exacerbation Referrals: [facility] [Outside] - 1 Week Forrest Marin PA [Primary Care Provider, Internal Medicine] - 1 Week Discharge Medications: New doxycycline monohydrate 100 mg Capsule 100 mg PO Q12H Qty: 4 0RF Continued sennosides [senna] 8.6 mg Tablet 8.6 mg PO BEDTIME PRN (Reason: Constipation) clopidogrel 75 mg Tablet 75 mg PO DAILY amlodipine 10 mg Tablet 10 mg PO DAILY losartan 100 mg Tablet 100 mg PO DAILY insulin glargine-yfgn 100 unit/mL (3 mL) Insulin Pen 40 unit SUBCUT DAILY cyanocobalamin (vitamin B-12) 1,000 mcg Tablet 1,000 mcg PO DAILY furosemide 40 mg Tablet 40 mg PO DAILY Qty: 30 0RF Discharge Orders: Discharge Order (Routine); Ordered 03/22/25 Ordered By: Joel Rodriguez Diet: Advance to usual diet Activity on Discharge: As tolerated Stand Alone Forms: Patient Portal Discharge page Print Language: Algerian Care Plan Goals: recovery from copd exacerbation Health Concerns: copd exacerbation alcohol use disorder Plan of Treatment: Finish taking doxycycline for bronchitis Assessment: see above Patient Instructions: Doxycycline (By mouth) Discharge Date/Time: 03/22/25 14:55
[2025-03-22] MEDS: Insulin Glargine,Hum.rec.anlog 100 UNIT/ML 10 ML VIAL 10 UNIT SUBCUT (09:40)
[2025-03-22] MEDS: Clopidogrel Bisulfate 75 MG TABLET PO (09:41)
[2025-03-22] MEDS: Doxycycline Monohydrate 100 MG CAPSULE PO (09:41)
[2025-03-22] MEDS: Enoxaparin Sodium 40 MG/0.4 ML SYRINGE SUBCUT (09:41)
[2025-03-22] MEDS: Cyanocobalamin (Vitamin B-12) 1,000 MCG TABLET 1000 MCG PO (09:41)
[2025-03-22 10:42] VITALS: BP 92/56
[2025-03-22 10:43] VITALS: BP 92/56
[2025-03-22 10:59] LABS: Glucose, Whole Blood 165 mg/dL (60-115)
[2025-03-22 11:38] VITALS: BP 92/56; PULSE 77; RESP 18; TEMP 36.2; O2SAT 96
[2025-03-22] MEDS: Insulin Lispro 100 UNIT/ML 3 ML VIAL SUBCUT (12:06)
[2025-03-22 13:10] VITALS: BP 113/58
--- NOTE | 2025-03-22 13:17 | MHC.CM.PN ---
Pt. has been medically cleared for DC, he will go to [facility] via BLS today. Pt. initially refused to go to rehab, but after he spoke with his niece / HCP he agreed to go.
--- NOTE | 2025-04-17 07:50 | P.CDIM_ITS ---
PROVIDER RESPONSE TEXT: To clarify, the appropriate diagnosis supported by the clinical indicators: Wound/ulcer due to Diabetes mellitus Type 2: probable QUERY TEXT: PHYSICIAN'S DOCUMENTATION REQUEST Date of Query: 04/10/2025 09:17 AM EDT Patient Name: Phil Ledbetter Admit Date: 03/16/2025 Dear Joel Rodriguez MD, RETROSPECTIVE QUERY A review of the medical record indicates additional documentation may be needed. Please review below and update the documentation accordingly. Clinical Indicators: Wound care consultation notes 03/17/25 - Left lower lateral leg Etiology: Venous wound, Present on Admission. Marbled wound bed with thin yellow and pink moist wound bed. Elevate and durafiber for moisture management. Apply lotion to both legs, ABD pad, gauze wrap and tape. Diabetes mellitus Type 2, Lantus Progress note 03/21/25 - Chronic open wound left lower extremity. Does not appear to be infected. Based on the above, could you please provide further information regarding the ulcer/wound: Wound/ulcer due to Diabetes mellitus Type 2 possible, probable, suspected etc. Venous stasis ulcer left lower leg Pressure (decubitus) ulcer Other specifics to the chronic open wound left leg please specify if known Other (explain) Clinically unable to determine (explain) Thank you, Nancie Leonardo, CCS, CDIS Use of terms such as suspected, likely, concern for, or probable (associated with a specific diagnosis that is being evaluated, monitored, or treated as if it exists) are acceptable and can be coded in the inpatient setting, when documented at the time of discharge. Please use your independent medical judgment in providing your response. THIS QUERY IS PART OF THE PERMANENT MEDICAL RECORD
== END 2025-03-22 14:55 | disposition skilled nursing facility (03) | DRG 871 ==
LOC: HO.ED 06:52 → HO.EDOVER 07:03 → HO.IMC 19:38
PROVIDERS: Physician Assistant; Admitting Provider Internal Medicine; Emergency Provider Emergency Medicine; PCP Physician Assistant; Visit Provider Internal Medicine
DX: A41.9 Sepsis, unspecified organism (principal); J96.01 Acute respiratory failure with hypoxia; I13.0 Hypertensive heart and chronic kidney disease with heart failure and stage 1 through stage 4 chronic kidney disease, or unspecified chronic kidney disease; I50.32 Chronic diastolic (congestive) heart failure; J44.1 Chronic obstructive pulmonary disease with (acute) exacerbation; L97.829 Non-pressure chronic ulcer of other part of left lower leg with unspecified severity; I25.10 Atherosclerotic heart disease of native coronary artery without angina pectoris; N18.30 Chronic kidney disease, stage 3 unspecified; E11.22 Type 2 diabetes mellitus with diabetic chronic kidney disease; I48.0 Paroxysmal atrial fibrillation; F10.90 Alcohol use, unspecified, uncomplicated; Y90.0 Blood alcohol level of less than 20 mg/100 ml; E11.622 Type 2 diabetes mellitus with other skin ulcer; Z20.822 Contact with and (suspected) exposure to COVID-19; Z95.1 Presence of aortocoronary bypass graft; Z87.891 Personal history of nicotine dependence; Z79.4 Long term (current) use of insulin; Z79.02 Long term (current) use of antithrombotics/antiplatelets; Z79.899 Other long term (current) drug therapy
CPT/HCPCS: 0241U; 36415; 71045; 80048; 80076; 80307; 82803; 82947; 83605; 83735; 83880; 84484; 85025; 85379; 87040; 93005; 94640; 97162; 99285; J0456; J0696; J1271; J1650; J2919

== ENCOUNTER → 2025-03-16 04:50 | Outpatient (BNV) | payer OTHER, SELFPAY | PROVIDERS: Admitting Provider Internal Medicine; Emergency Provider Emergency Medicine; PCP Physician Assistant; Visit Provider Internal Medicine Cardiovascular Disease | DX: I49.3 Ventricular premature depolarization (principal); I25.2 Old myocardial infarction | CPT/HCPCS: 93010 ==

== ENCOUNTER → 2025-03-16 04:50 | Outpatient (BNV) | payer OTHER, SELFPAY | PROVIDERS: Emergency Provider Emergency Medicine; PCP Physician Assistant; Visit Provider Radiology Diagnostic Radiology | DX: R06.00 Dyspnea, unspecified (principal) | CPT/HCPCS: 71045 ==

== ENCOUNTER → 2025-03-16 06:52 | Outpatient (BNV) | payer OTHER, SELFPAY | PROVIDERS: Admitting Provider Internal Medicine; Emergency Provider Emergency Medicine; PCP Physician Assistant; Visit Provider Physician Assistant | DX: J44.1 Chronic obstructive pulmonary disease with (acute) exacerbation (principal) | CPT/HCPCS: 99223; 99232; 99499 ==

== ENCOUNTER 2025-06-04 19:24 | Emergency (ER) | payer OTHER, SELFPAY ==
--- NOTE | 2025-06-04 | ECG_ITS ---
Test Reason : hx afib Blood Pressure : */* mmHG Vent. 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
--- NOTE | ~2025-06-04 | XR_ITS ---
CLINICAL HISTORY: Shortness of breath; ? CHF 2 view chest x-ray Comparison: CR - XR CHEST 1V - 03/16/25 05:06 EDT Findings: Right lower lobe infiltrative changes. No significant pleural effusion or pneumothorax. Normal size heart. No acute fracture. IMPRESSION: 1. Right lower lobe infiltrative changes may represent pneumonia. This document has been electronically signed by: Nivia Garrido MD on 06/04/2025 22:34:49
--- NOTE | ~2025-06-04 | CT_ITS ---
CLINICAL HISTORY: R O Gas or Osteo; Pain; Erythema --- Additional Notes or Special Instructions: Knee through Toes Please CT of the right lower extremity with intravenous contrast Comparison: None available Findings: Imaging includes right knee, majority of the right tibia, and majority of the right fibula. No acute displaced fracture of the imaged tibia or imaged fibula. Soft tissue fluid is nonspecific and may reflect cellulitis. Ulceration and/or blistering suggested including anterior to distal tibia (imaged by 76 of series 3). Additional dermal skin thickening is nonspecific and can be seen with cellulitis, particularly anteriorly. Small effusion of the right knee, with moderate tricompartment osteoarthritis. Osteoarthritis of the right ankle is mild and partially imaged in the [id number]. Syndesmosis calcifications noted. No aggressive appearing bony destructive changes of the acute osteomyelitis by CT. No ulceration extends to bone to defined osteomyelitis by CT. Calcified and noncalcified plaque involving the imaged arteries this routine study. No defined or walled-off drainable abscess by CT, accounting for artifacts. Impression: 1. Superficial fluid is likely due to cellulitis. 2. Blister appearance and/or ulceration of the ventral soft tissues superficial to distal tibia. 3. No definite CT findings of the osteomyelitis at this time. This document has been electronically signed by: Jung Zabala MD on 06/05/2025 02:29:02
--- NOTE | ~2025-06-04 | XR_ITS ---
CLINICAL HISTORY: sob, CHF hx 1 view chest x-ray Comparison: CR - XR CHEST 2V - 06/04/25 22:08 EDT Findings: No consolidation, pleural effusion, or pneumothorax. Previously described right lower lobe airspace opacity is not present on today's exam. Normal size heart. No acute fracture. Sternotomy wires. IMPRESSION: 1. No acute findings. This document has been electronically signed by: Constance Manzanares MD on 06/07/2025 23:38:02
[2025-06-04 19:35] VITALS: BP 160/90; PULSE 62; O2SAT 94
[2025-06-04 19:50] VITALS: BP 145/75; PULSE 90; RESP 15; TEMP 36.6; O2SAT 93; BMI 32.7
--- NOTE | 2025-06-04 20:23 | ED_ITS ---
HPI - Wound/Laceration General Chief Complaint: Wound/Laceration Stated Complaint: leg wound Time Seen by Provider: 06/04/25 20:22 Source: patient and EMS Mode of arrival: EMS Limitations: no limitations History of Present Illness ED Provider: Jerod LYNCH HPI narrative: The patient is an 85-year-old male with a history of diabetes, CKD, COPD, and paroxysmal AFib, presenting to the ED for evaluation of worsening bilateral lower extremity erythema, now with open wounds of the right lower extremity with necrotic appearing skin changes overlying the right gutierrez. Patient's niece reportedly saw the patient today and activated EMS for evaluation of worsening right lower extremity wounds. Patient in the ED denies any recent fever/chills, nausea, vomiting, chest pain, shortness of breath, abdominal pain, lower extremity injury, or associated discharge. Patient reports he has had waxing and waning venous stasis changes and chronic wounds with his lower extremities for quite some time, reports symptoms have been worsening over the past 2-3 weeks. The patient arrives to the ED normotensive, without tachycardia or fever. Related Data Home Medications ?Medication ?Instructions ?Recorded ?Confirmed amlodipine 10 mg tablet 10 mg PO DAILY 07/04/2405/22 clopidogrel 75 mg tablet 75 mg PO DAILY 07/04/2405/22 insulin glargine-yfgn 100 unit/mL 44 unit subcut DAILY 07/04/24 03/16/25 (3 mL) subcutaneous pen losartan 100 mg tablet 100 mg PO DAILY 07/04/2405/22 sennosides 8.6 mg tablet (senna) 8.6 mg PO BEDTIME PRN Constipation 07/04/24 06/05/25 cyanocobalamin (vitamin B-12) 1,000 mcg PO DAILY 03/1606/05/25 1,000 mcg tablet Previous Rx's ?Medication ?Instructions ?Recorded furosemide 40 mg tablet 40 mg PO DAILY #30 tabs 11/27 04/21 cephalexin 500 mg tablet 500 mg PO QID 8 days #32 tab s 06/08/25 Allergies Allergy/AdvReac Type Severity Reaction Status Date / Time hydrochlorothiazide Allergy Unknown Unknown Verified 06/04/25 20:17 Review of Systems 2 Review of Systems: Yes all other systems are reviewed and are negative PMFSH Past Medical History Medical History (Updated 06/09/25 @ 00:00 by Background Dajulianne) Type 2 diabetes mellitus without complications Paroxysmal A-fib Congestive heart failure CKD (chronic kidney disease) Type 2 diabetes mellitus Coronary artery disease Surgical History Hx of CABG Social History Social History Household Members: Spouse Housing: House Do you presently have visiting nurse or other home services: Yes ([facility]) Unable to assess alcohol history related to: Unknown Alcohol intake: unknown Patient Tobacco Use Status: Former Tobacco user e-Cigarette/Vaping Use: Former Use Advance Directives Date on File: 07/07/24 service: Yes Physical Exam 2 Vital Signs: Vital Signs: Last Vital Signs Temp 0 F L 06/08/25 11:49 Pulse 0 L 06/08/25 11:49 Resp 18 06/08/25 11:49 BP 0/0 L 06/08/25 11:49 Pulse Ox 94 06/08/25 08:24 O2 Del Method Room Air 06/08/25 11:49 BMI result Body Mass Index 32.7 CONSTITUTIONAL: The patient appears chronically ill, mildly unkempt, otherwise non-toxic, well nourished and in no acute distress. Vital signs as documented. HEAD: Atraumatic, normocephalic. EYES: EOMs grossly intact, pupils equal, conjunctiva clear, no exudate. ENT: Nares patent, no discharge. Airway patent, no audible stridor, visible mucosa is pink and moist without noted lesions. NECK: Trachea is midline, no obvious masses or gross abnormalities. CHEST: Symmetric movement, normal appearance. LUNGS: LS present , bilateral bronchial breath sounds noted, which clear with cough, otherwise CTAB, no w/r/r. Non-labored work of breathing. CARDIAC: Regular Rhythm, S1/S2 appreciated, no murmurs, rubs or gallops. ABDOMEN: Abdomen soft and non-tender x4 quadrants, no palpable masses or organomegaly. : Deferred. EXTREMITIES: There is marked dryness and erythema noted to the bilateral lower extremities from the proximal gutierrez through the toes consistent with chronic venous stasis changes/PVD, however there is also a linear area of open ulceration noted to the anterolateral aspect of the right gutierrez with increased erythema and tenderness to palpation, no purulent drainage noted. Distal CSM is intact, 1+ DP/PT pulses bilaterally, no asymmetric pulses, no pallor, or pain out of proportion. Normal tone, moves all extremities spontaneously without reported pain. No obvious acute injury or deformity noted. NEURO: Alert and oriented x3, CN II-XII appear grossly intact. Cerebellar Functioning grossly intact. No obvious sensory or motor deficits. Speech clear and appropriate. PSYCH: normal affect, appropriate eye contact, fluid speech, with appropriate response to questioning. No reported suicidality or homicidality. SKIN: Warm, dry, color appropriate, normal turgor. No rashes noted. Course Course Course Narrative: Time: 08:16 Date: 06/06/25 Provider: SYED Kaur Patient in physician observation for case management needs. Acutely agitated this morning, difficult to redirect and confused. Prior to my arrival, patient was given p.o. Zyprexa. No current issues or complaints. He is hypertensive, vitals are otherwise wnl. Med rec reviewed and completed. PT has evaluated patient and is recommnding STR. Patient is pending placement at [facility]. Will continue to monitor. SYED Kaur 06/06/25 1024 On chart review, it appears that patient was initially treated with IV Rocephin for his right lower extremity cellulitis. CT scan did not demonstrate evidence of osteomyelitis. It was noted that patient would require further antibiotic therapy however he has not received anything since his initial presentation 2 days ago. I have evaluated patient at bedside. Given his increasing agitation, will repeat CBC/CMP/BNP. Keflex has been ordered for RLE cellulitis (photos below). no other photos to compare to as this is the first time that I am evaluating this patient. He has remained afebrile and is generally well appearing. Will continue to monitor. SYED Kaur 06/06/25 1424 I reviewed repeat blood work. CBC without leukocytosis. Slight drop in H&H at 13.7/41.9 however I do not have concern for acute blood loss. Above transfusion threshold. This appears to be around his baseline. Chemistry without acute electrolyte abnormality requiring intervention. Renal function around baseline. Random glucose 294, no gap. BNP improving 514, compared to 832 two days prior. > patient started on PO keflex > phys obs continued pending PT/CM and disposition. Time: 08:12 Date: 06/07/25 Provider: SYED Kaur Patient in physician observation for case management needs. No acute events reported overnight.? No current issues or complaints. VS stable. Patient is pending placement at facility/CM eval. Will continue to monitor. 06/08/25 09:55 GENIA Morfin: Physician observation continued. Notified by RN that no code status entered into the computer. Patient alert and oriented x3. Patient stating he would like to be full code. MOLST form completed and code status updated in the computer. Case management following for disposition. 06/08/25 10:51 GENIA Morfin: Per Bhavana from , patient will be discharged to [facility] via [facility] for short-term rehab. Observation care revealed that patient does not meet medical necessity for hospitalization. Final disposition discussed with patient. The patient completed observation care at 11 30 on 06/08/2025. Reevaluation(s) Reevaluation #1: Receiving a call from [employer], the patient is diabetic and does not have his insulin ordered I ordered it Reevaluation #2: Received a call from [employer] earlier in the evening, the patient had initially been refusing his Lasix, he did finally receive it. The nurse noted wheezing. The patient also has a diagnosis of COPD, has no medications scheduled. I am adding a chest x-ray, he is objectively wheezing, ordering bronchodilator protocol, and steroid. To note there was no hypoxia his labs were stable afebrile Time: 00:22 Medications Administered Discontinued Medications Generic Name Dose Route Start Last Admin Trade Name Shadi PRN Reason Stop Dose Admin Acetaminophen 975 mg 06/08/25 07:37 06/08/25 08:21 Acetaminophen 325 Mg Tablet PO 06/08/25 07:38 975 mg ONCE ONE Administration Albuterol/Ipratropium 3 ml 06/08/25 00:37 06/08/25 00:40 Albuterol/Iprat 2.5/0.5mg 3 Ml Ampul.Neb INHALE 06/08/25 00:38 3 ml ONCE ONE Administration Amlodipine Besylate 10 mg 06/06/25 09:00 06/07/25 10:04 Amlodipine Besylate 10 Mg Tablet PO 10 mg DAILY TRAMAINE Administration Protocol Amlodipine Besylate 10 mg 06/08/25 09:00 06/08/25 09:15 Amlodipine Besylate 5 Mg Tablet PO 10 mg DAILY TRAMAINE Administration Protocol Ceftriaxone Sodium 1 gm 06/04/25 22:48 06/04/25 23:17 Ceftriaxone Sodium 1 Gm Vial IVPUSH 06/04/25 22:49 1 gm ONCE ONE Administration Cephalexin HCl 500 mg 06/06/25 13:00 06/08/25 08:22 Cephalexin 500 Mg Capsule PO 500 mg QID TRAMAINE Administration Clopidogrel Bisulfate 75 mg 06/06/25 09:00 06/08/25 08:22 Clopidogrel Bisulfate 75 Mg Tablet PO 75 mg DAILY TRAMAINE Administration Cyanocobalamin 1,000 mcg 06/06/25 09:00 06/08/25 08:21 Cyanocobalamin (Vitamin B-12) 1,000 Mcg Tablet PO 1,000 mcg DAILY TRAMAINE Administration Furosemide 40 mg 06/04/25 22:51 06/04/25 23:17 Furosemide 40 Mg/4 Ml Vial IVPUSH 06/04/25 22:52 40 mg ONCE ONE Administration Protocol Furosemide 40 mg 06/06/25 09:00 06/08/25 08:22 Furosemide 40 Mg Tablet PO 40 mg DAILY TRAMAINE Administration Protocol Furosemide 40 mg 06/07/25 20:12 06/07/25 20:54 Furosemide 40 Mg Tablet PO 06/07/25 20:13 40 mg ONCE ONE Administration Protocol Sodium Chloride 1,000 mls @ 999 mls/hr 06/04/25 20:45 06/04/25 21:54 Ns IV 06/04/25 21:45 Infused .Q1H1M TRAMAINE Infusion Insulin Glargine 44 unit 06/07/25 09:00 06/08/25 08:21 Insulin Glargine,Hum.Rec.Anlog 100 Unit/Ml 10 Ml Vial SUBCUT 44 unit DAILY TRAMAINE Administration Iohexol 85 ml 06/04/25 22:17 06/04/25 22:17 Iohexol 350 Mg/Ml 100 Ml Infus..Btl IV 06/04/25 22:18 85 ml ONCE ONE Administration Losartan Potassium 100 mg 06/06/25 09:00 06/08/25 08:21 Losartan Potassium 50 Mg Tablet PO 100 mg DAILY TRAMAINE Administration Protocol Olanzapine 5 mg 06/05/25 18:42 06/05/25 20:08 Olanzapine 5 Mg Tablet PO 06/05/25 18:43 5 mg ONCE ONE Administration Olanzapine 5 mg 06/06/25 07:29 06/06/25 09:29 Olanzapine 5 Mg Tablet PO 06/06/25 07:30 Not Given ONCE ONE Ondansetron HCl 4 mg 06/07/25 11:28 06/07/25 11:59 Ondansetron Odt 4 Mg Tab.Rapdis TRANSLINGU 06/07/25 11:29 4 mg ONCE ONE Administration Prednisone 40 mg 06/08/25 09:00 06/08/25 08:22 Prednisone 20 Mg Tablet PO 06/12/25 00:21 40 mg DAILY TRAMAINE Administration Medical Decision Making Medical Decision Making MDM Narrative: 8:45 PM 06/04/2025 (Justine LYNCH): The patient is an 85-year-old male presenting to the ED for evaluation of worsening erythema and ulceration of his right lower extremity with increasing tenderness to palpation but without associated fever/chills, nausea, vomiting, or other acute systemic complaint. The patient's exam shows erythema, tenderness, and linear ulceration/open wound of the right anterolateral gutierrez without purulent drainage. The patient's skin around the ulceration appears darkened in color, concerning for early necrotic changes. The patient is otherwise nontoxic appearing, normotensive without tachycardia or fever. Patient will be evaluated with CT of the right leg to rule out gas-forming infection versus osteomyelitis. We will obtain basic laboratory evaluation and provide gentle IV fluid hydration. We will also obtain lactic acid although patient's presentation is not toxic appearing, and there was no evidence of sepsis at this time. We will consider blood cultures, IV antibiotics, and sepsis protocol pending laboratory evaluation or change in patient condition. Pending non-infectious laboratory evaluation and CT imaging, patient will likely require PT/case management consultation for consideration of short-term rehab and wound care. 10:48 PM 06/04/2025 (Justine LYNCH): After initiation of IV fluid hydration the patient was noted by RN to have some increasing wheezing without complaint of shortness of breath. IV fluid hydration was held, and BNP and chest x-ray were added on. The patient's BNP is 832, increased compared to baseline, and chest x-ray shows right lower lobe infiltrative changes which may represent pneumonia. Given the patient's lack of leukocytosis, lactic acidosis, or fever, with elevated BNP and respiratory symptoms which only began after IV fluid hydration, symptoms more likely reflect CHF. Patient takes 40 mg Lasix daily, we will administer 40 mg IV Lasix but also cover with Rocephin. Lower extremity CT is still pending. 2:34 AM 06/05/2025 (Justine LYNCH): The patient's CT has resulted and shows no evidence of osteomyelitis, there is evidence of overlying cellulitis with ulceration of ventral soft tissues, but no other acute findings. Patient's cellulitis has already been treated with Rocephin. The patient's vital signs remain stable. We will ambulate the patient, if patient desaturates with exertion we will admit for CHF exacerbation, if no desaturation we will hold patient for case management/PT. 3:03 AM 06/05/2025 (Justine LYNCH): Patient ambulated without desaturation. Patient will be held for case management consultation as the patient appears to have difficulty managing his care at home. Patient will require continued antibiotic regimen for his cellulitis. Time: 18:38 Date: 06/05/25 Provider: SYED Cheung Patient in physician observation for case management needs. It was brought to my attention that patient has been more agitated, walking into other people's rooms. He is redirectable therefore olanzapine 5 milligrams p.o. ordered to hopefully get ahead of agitation. We will continue to monitor pending case management disposition. Admission/Observation Consideration of admission/observation: Escalation of care including admission/observation considered Lab Data MDM Lab Attestation statement: I reviewed the patient's lab results. 06/06/25 10:39 06/06/25 10:39 Labs: Lab Results 06/04/25 06/05/25 06/05/25 Range/Units 21:27 06:55 07:26 WBC 10.8 (4.8-10.8) X10*3/uL RBC 5.33 (4.60-5.80) X10*6/uL Hgb 14.2 (14.0-18.0) g/dl Hct 42.4 (42.0-52.0) % MCV 79.5 L (80.0-98.0) fL MCH 26.6 L (27.0-33.0) pg MCHC 33.5 (31.0-36.0) g/dl RDW 14.2 (11.0-16.0) % Plt Count 249 (160-400) X10*3/uL MPV 10.1 (9.4-12.4) fL Immature Gran % (Auto) 0.3 (0.0-0.4) % Neut % (Auto) 68.1 (45-73) % Lymph % (Auto) 16.4 L (20-40) % [place] % (Auto) 9.8 (2-11) % Eos % (Auto) 4.6 H (0-4) % Baso % (Auto) 0.8 (0-2) % Lymph # (Auto) 1.8 (1.2-4.9) X10*3/uL [place] # (Auto) 1.1 (0.1-1.2) X10*3/uL Eos # (Auto) 0.5 H (0.0-0.4) X10*3/uL Baso # (Auto) 0.1 (0.0-0.2) X10*3/uL Abs Immat Gran (auto) 0.03 (0.00-0.03) X10*3/uL Absolute Neuts (auto) 7.4 (2.0-8.3) x10*3/uL Absolute Nucleated RBC 0.000 (0.0-0.012) X10*3/uL Nucleated RBC % (auto) 0.0 (0.0-0.2) /100WBC Sodium 142 (135-145) mmol/L Potassium 3.8 (3.3-5.1) mmol/L Chloride 108 (96-108) mmol/L Carbon Dioxide 25 (22-29) mmol/L Anion Gap 13 (12-20) BUN 27 H (9-16) mg/dL Creatinine 1.27 (0.5-1.4) mg/dL Estim Creat Clear Calc 49.0 Estimated GFR 54 POC Glucose 144 H 153 H (60-115) mg/dL Random Glucose 83 (60-115) mg/dL Lactic Acid 1.1 (0.5-2.0) mmol/L Calcium 9.0 (8.4-10.2) mg/dL Total Bilirubin 0.6 (0.0-1.0) mg/dL AST 18 (5-37) U/L ALT 16 (0-40) U/L Alkaline Phosphatase 104 (39-117) U/L B-Natriuretic Peptide 832 H (<100) pg/mL Total Protein 6.8 (6.5-8.0) g/dL Albumin 3.8 (3.5-5.0) g/dL Influenza Type A (PCR) (Negative) Influenza Type B (PCR) (Negative) RSV RNA Qual (PCR) (Negative) SARS-CoV-2 RNA (RT-PCR) (Negative) 06/05/25 06/05/25 06/05/25 Range/Units 10:22 11:13 19:53 WBC (4.8-10.8) X10*3/uL RBC (4.60-5.80) X10*6/uL Hgb (14.0-18.0) g/dl Hct (42.0-52.0) % MCV (80.0-98.0) fL MCH (27.0-33.0) pg MCHC (31.0-36.0) g/dl RDW (11.0-16.0) % Plt Count (160-400) X10*3/uL MPV (9.4-12.4) fL Immature Gran % (Auto) (0.0-0.4) % Neut % (Auto) (45-73) % Lymph % (Auto) (20-40) % [place] % (Auto) (2-11) % Eos % (Auto) (0-4) % Baso % (Auto) (0-2) % Lymph # (Auto) (1.2-4.9) X10*3/uL [place] # (Auto) (0.1-1.2) X10*3/uL Eos # (Auto) (0.0-0.4) X10*3/uL Baso # (Auto) (0.0-0.2) X10*3/uL Abs Immat Gran (auto) (0.00-0.03) X10*3/uL Absolute Neuts (auto) (2.0-8.3) x10*3/uL Absolute Nucleated RBC (0.0-0.012) X10*3/uL Nucleated RBC % (auto) (0.0-0.2) /100WBC Sodium (135-145) mmol/L Potassium (3.3-5.1) mmol/L Chloride (96-108) mmol/L Carbon Dioxide (22-29) mmol/L Anion Gap (12-20) BUN (9-16) mg/dL Creatinine (0.5-1.4) mg/dL Estim Creat Clear Calc Estimated GFR POC Glucose 206 H 278 H (60-115) mg/dL Random Glucose (60-115) mg/dL Lactic Acid (0.5-2.0) mmol/L Calcium (8.4-10.2) mg/dL Total Bilirubin (0.0-1.0) mg/dL AST (5-37) U/L ALT (0-40) U/L Alkaline Phosphatase (39-117) U/L B-Natriuretic Peptide (<100) pg/mL Total Protein (6.5-8.0) g/dL Albumin (3.5-5.0) g/dL Influenza Type A (PCR) NEGATIVE (Negative) Influenza Type B (PCR) NEGATIVE (Negative) RSV RNA Qual (PCR) NEGATIVE (Negative) SARS-CoV-2 RNA (RT-PCR) NEGATIVE (Negative) 06/06/25 06/06/25 06/06/25 Range/Units 07:27 10:39 11:06 WBC 9.5 (4.8-10.8) X10*3/uL RBC 5.20 (4.60-5.80) X10*6/uL Hgb 13.7 L (14.0-18.0) g/dl Hct 41.9 L (42.0-52.0) % MCV 80.6 (80.0-98.0) fL MCH 26.3 L (27.0-33.0) pg MCHC 32.7 (31.0-36.0) g/dl RDW 14.0 (11.0-16.0) % Plt Count 229 (160-400) X10*3/uL MPV 10.0 (9.4-12.4) fL Immature Gran % (Auto) 0.3 (0.0-0.4) % Neut % (Auto) 68.2 (45-73) % Lymph % (Auto) 15.6 L (20-40) % [place] % (Auto) 8.6 (2-11) % Eos % (Auto) 6.1 H (0-4) % Baso % (Auto) 1.2 (0-2) % Lymph # (Auto) 1.5 (1.2-4.9) X10*3/uL [place] # (Auto) 0.8 (0.1-1.2) X10*3/uL Eos # (Auto) 0.6 H (0.0-0.4) X10*3/uL Baso # (Auto) 0.1 (0.0-0.2) X10*3/uL Abs Immat Gran (auto) 0.03 (0.00-0.03) X10*3/uL Absolute Neuts (auto) 6.5 (2.0-8.3) x10*3/uL Absolute Nucleated RBC 0.000 (0.0-0.012) X10*3/uL Nucleated RBC % (auto) 0.0 (0.0-0.2) /100WBC Sodium 139 (135-145) mmol/L Potassium 4.2 (3.3-5.1) mmol/L Chloride 105 (96-108) mmol/L Carbon Dioxide 26 (22-29) mmol/L Anion Gap 12 (12-20) BUN 25 H (9-16) mg/dL Creatinine 1.36 (0.5-1.4) mg/dL Estim Creat Clear Calc 45.7 Estimated GFR 50 POC Glucose 203 H 278 H (60-115) mg/dL Random Glucose 294 H (60-115) mg/dL Lactic Acid (0.5-2.0) mmol/L Calcium 8.5 (8.4-10.2) mg/dL Total Bilirubin 0.7 (0.0-1.0) mg/dL AST 15 (5-37) U/L ALT 12 (0-40) U/L Alkaline Phosphatase 91 (39-117) U/L B-Natriuretic Peptide 514 H (<100) pg/mL Total Protein 6.3 L (6.5-8.0) g/dL Albumin 3.5 (3.5-5.0) g/dL Influenza Type A (PCR) (Negative) Influenza Type B (PCR) (Negative) RSV RNA Qual (PCR) (Negative) SARS-CoV-2 RNA (RT-PCR) (Negative) 06/06/25 06/06/25 06/07/25 Range/Units 16:33 21:08 09:27 WBC (4.8-10.8) X10*3/uL RBC (4.60-5.80) X10*6/uL Hgb (14.0-18.0) g/dl Hct (42.0-52.0) % MCV (80.0-98.0) fL MCH (27.0-33.0) pg MCHC (31.0-36.0) g/dl RDW (11.0-16.0) % Plt Count (160-400) X10*3/uL MPV (9.4-12.4) fL Immature Gran % (Auto) (0.0-0.4) % Neut % (Auto) (45-73) % Lymph % (Auto) (20-40) % [place] % (Auto) (2-11) % Eos % (Auto) (0-4) % Baso % (Auto) (0-2) % Lymph # (Auto) (1.2-4.9) X10*3/uL [place] # (Auto) (0.1-1.2) X10*3/uL Eos # (Auto) (0.0-0.4) X10*3/uL Baso # (Auto) (0.0-0.2) X10*3/uL Abs Immat Gran (auto) (0.00-0.03) X10*3/uL Absolute Neuts (auto) (2.0-8.3) x10*3/uL Absolute Nucleated RBC (0.0-0.012) X10*3/uL Nucleated RBC % (auto) (0.0-0.2) /100WBC Sodium (135-145) mmol/L Potassium (3.3-5.1) mmol/L Chloride (96-108) mmol/L Carbon Dioxide (22-29) mmol/L Anion Gap (12-20) BUN (9-16) mg/dL Creatinine (0.5-1.4) mg/dL Estim Creat Clear Calc Estimated GFR POC Glucose 256 H 358 H* 282 H (60-115) mg/dL Random Glucose (60-115) mg/dL Lactic Acid (0.5-2.0) mmol/L Calcium (8.4-10.2) mg/dL Total Bilirubin (0.0-1.0) mg/dL AST (5-37) U/L ALT (0-40) U/L Alkaline Phosphatase (39-117) U/L B-Natriuretic Peptide (<100) pg/mL Total Protein (6.5-8.0) g/dL Albumin (3.5-5.0) g/dL Influenza Type A (PCR) (Negative) Influenza Type B (PCR) (Negative) RSV RNA Qual (PCR) (Negative) SARS-CoV-2 RNA (RT-PCR) (Negative) 06/07/25 06/07/25 06/07/25 Range/Units 12:17 16:36 22:25 WBC (4.8-10.8) X10*3/uL RBC (4.60-5.80) X10*6/uL Hgb (14.0-18.0) g/dl Hct (42.0-52.0) % MCV (80.0-98.0) fL MCH (27.0-33.0) pg MCHC (31.0-36.0) g/dl RDW (11.0-16.0) % Plt Count (160-400) X10*3/uL MPV (9.4-12.4) fL Immature Gran % (Auto) (0.0-0.4) % Neut % (Auto) (45-73) % Lymph % (Auto) (20-40) % [place] % (Auto) (2-11) % Eos % (Auto) (0-4) % Baso % (Auto) (0-2) % Lymph # (Auto) (1.2-4.9) X10*3/uL [place] # (Auto) (0.1-1.2) X10*3/uL Eos # (Auto) (0.0-0.4) X10*3/uL Baso # (Auto) (0.0-0.2) X10*3/uL Abs Immat Gran (auto) (0.00-0.03) X10*3/uL Absolute Neuts (auto) (2.0-8.3) x10*3/uL Absolute Nucleated RBC (0.0-0.012) X10*3/uL Nucleated RBC % (auto) (0.0-0.2) /100WBC Sodium (135-145) mmol/L Potassium (3.3-5.1) mmol/L Chloride (96-108) mmol/L Carbon Dioxide (22-29) mmol/L Anion Gap (12-20) BUN (9-16) mg/dL Creatinine (0.5-1.4) mg/dL Estim Creat Clear Calc Estimated GFR POC Glucose 282 H 249 H 263 H (60-115) mg/dL Random Glucose (60-115) mg/dL Lactic Acid (0.5-2.0) mmol/L Calcium (8.4-10.2) mg/dL Total Bilirubin (0.0-1.0) mg/dL AST (5-37) U/L ALT (0-40) U/L Alkaline Phosphatase (39-117) U/L B-Natriuretic Peptide (<100) pg/mL Total Protein (6.5-8.0) g/dL Albumin (3.5-5.0) g/dL Influenza Type A (PCR) (Negative) Influenza Type B (PCR) (Negative) RSV RNA Qual (PCR) (Negative) SARS-CoV-2 RNA (RT-PCR) (Negative) 06/08/25 Range/Units 07:26 WBC (4.8-10.8) X10*3/uL RBC (4.60-5.80) X10*6/uL Hgb (14.0-18.0) g/dl Hct (42.0-52.0) % MCV (80.0-98.0) fL MCH (27.0-33.0) pg MCHC (31.0-36.0) g/dl RDW (11.0-16.0) % Plt Count (160-400) X10*3/uL MPV (9.4-12.4) fL Immature Gran % (Auto) (0.0-0.4) % Neut % (Auto) (45-73) % Lymph % (Auto) (20-40) % [place] % (Auto) (2-11) % Eos % (Auto) (0-4) % Baso % (Auto) (0-2) % Lymph # (Auto) (1.2-4.9) X10*3/uL [place] # (Auto) (0.1-1.2) X10*3/uL Eos # (Auto) (0.0-0.4) X10*3/uL Baso # (Auto) (0.0-0.2) X10*3/uL Abs Immat Gran (auto) (0.00-0.03) X10*3/uL Absolute Neuts (auto) (2.0-8.3) x10*3/uL Absolute Nucleated RBC (0.0-0.012) X10*3/uL Nucleated RBC % (auto) (0.0-0.2) /100WBC Sodium (135-145) mmol/L Potassium (3.3-5.1) mmol/L Chloride (96-108) mmol/L Carbon Dioxide (22-29) mmol/L Anion Gap (12-20) BUN (9-16) mg/dL Creatinine (0.5-1.4) mg/dL Estim Creat Clear Calc Estimated GFR POC Glucose 211 H (60-115) mg/dL Random Glucose (60-115) mg/dL Lactic Acid (0.5-2.0) mmol/L Calcium (8.4-10.2) mg/dL Total Bilirubin (0.0-1.0) mg/dL AST (5-37) U/L ALT (0-40) U/L Alkaline Phosphatase (39-117) U/L B-Natriuretic Peptide (<100) pg/mL Total Protein (6.5-8.0) g/dL Albumin (3.5-5.0) g/dL Influenza Type A (PCR) (Negative) Influenza Type B (PCR) (Negative) RSV RNA Qual (PCR) (Negative) SARS-CoV-2 RNA (RT-PCR) (Negative) Radiology Impression Discussion of test interpretation with radiology: I have reviewed the radiologist's reading. Radiologist Impression: CLINICAL HISTORY: Shortness of breath; ? CHF 2 view chest x-ray Comparison: CR - XR CHEST 1V - 03/16/25 05:06 EDT Findings: Right lower lobe infiltrative changes. No significant pleural effusion or pneumothorax. Normal size heart. No acute fracture. IMPRESSION: 1. Right lower lobe infiltrative changes may represent pneumonia. This document has been electronically signed by: Nivia Garrido MD on 06/04/2025 22:34:49 CLINICAL HISTORY: R O Gas or Osteo; Pain; Erythema --- Additional Notes or Special Instructions: Knee through Toes Please CT of the right lower extremity with intravenous contrast Comparison: None available Findings: Imaging includes right knee, majority of the right tibia, and majority of the right fibula. No acute displaced fracture of the imaged tibia or imaged fibula. Soft tissue fluid is nonspecific and may reflect cellulitis. Ulceration and/or blistering suggested including anterior to distal tibia (imaged by 76 of series 3). Additional dermal skin thickening is nonspecific and can be seen with cellulitis, particularly anteriorly. Small effusion of the right knee, with moderate tricompartment osteoarthritis. Osteoarthritis of the right ankle is mild and partially imaged in the [id number]. Syndesmosis calcifications noted. No aggressive appearing bony destructive changes of the acute osteomyelitis by CT. No ulceration extends to bone to defined osteomyelitis by CT. Calcified and noncalcified plaque involving the imaged arteries this routine study. No defined or walled-off drainable abscess by CT, accounting for artifacts. Impression: 1. Superficial fluid is likely due to cellulitis. 2. Blister appearance and/or ulceration of the ventral soft tissues superficial to distal tibia. 3. No definite CT findings of the osteomyelitis at this time. This document has been electronically signed by: Jung Zabala MD on 06/05/2025 02:29:02 External Record Review External record reviewed: Outpatient record and Prior outpatient labs Discharge Plan Discharge Clinical Impression: Cellulitis of right lower leg Patient Disposition: Xfer Inpatient Rehab Fac Transfer Details: to [facility] via BLS Instructions: Cellulitis (ED) Additional Instructions: You have been evaluated in the emergency department today for skin infection, also known as cellulitis. If the area of inflammation was outlined today in the ER, please return to the ER immediately if the area of redness increases beyond the border. Please take your prescribed antibiotics as directed for the full course of the medication. You can use Tylenol or ibuprofen per package instructions every 6 hours as needed for pain. If necessary, you can alternate these medications so that you can take one medication every 3 hours. For instance, at noon take ibuprofen, then at 3:00 p.m. take Tylenol, then at 6:00 p.m. take ibuprofen. Please schedule an appointment for follow-up with your primary care physician as soon as possible. Return to the emergency department if you experience recurrent vomiting, fevers greater than 100.4? F, increasing area of redness, warmth around the area, foul-smelling discharge from the area, increased tenderness around the area, or any other concerning symptoms. Prescriptions: New cephalexin 500 mg tablet 500 mg PO QID 8 Days Qty: 32 0RF No Action sennosides [senna] 8.6 mg Tablet 8.6 mg PO BEDTIME PRN (Reason: Constipation) clopidogrel 75 mg Tablet 75 mg PO DAILY amlodipine 10 mg Tablet 10 mg PO DAILY losartan 100 mg Tablet 100 mg PO DAILY insulin glargine-yfgn 100 unit/mL (3 mL) Insulin Pen 44 unit SUBCUT DAILY cyanocobalamin (vitamin B-12) 1,000 mcg Tablet 1,000 mcg PO DAILY furosemide 40 mg Tablet 40 mg PO DAILY Qty: 30 0RF Referrals: [facility] [Outside] Forrest Marin PA [Primary Care Provider, Internal Medicine] Interventions: Acute Care Transfer Worksheet (ED) Last Done: 06/08/25 11:49 Discharge Date/Time: 06/08/25 11:49 Print Language: Maltese
--- OUTSIDE RECORDS SUMMARY | 2025-06-04 20:31 | XMS_ITS | Encounter Summary ---
Author Organization [facility] Address [address] [place] [address] Care Team Providers Care Roofing Sales Representative Name Role Phone Ember Guerra MD Primary Care Provider Encounter Details Date Type Department Care Team (Late st Contact Info) Description 12/26/2024 Lab Requisition [facility] - Main Lab [address] [place] [address] Sera Joe MD [address] [place] [address] Chronic obstructive pulmonary disease, unspecified (CMS/HCC V24, CMS/HCC V28); Respiratory failure, unspecified with hypoxia (CMS/HCC V24, CMS/HCC V28); Anemia, unspecified Social History Tobacco Use Types Packs/Day Years Used Date Smoking Tobacco: Never Smokeless Tobacco: Never Alcohol Use Standard Drinks/Week Comments No 0 (1 standard drink = 0.6 oz pur e alcohol) Sex and Gender Information Value Date Recorded Sex Assigned at Not on file Legal Sex Male 11:31 PM EST Gender Identity Not on file Sexual Orientation Not on file documented as of this encounter Plan of Treatment Not on file documented as of this encounter Procedures Procedure Name Priority Date/Time Associated Diagnosis Comments COMPLETE BLOOD COUNT Routine 12/26/2024 6:10 AM EDT Chronic obstructive pulmonary disease, unspecified Respiratory failure, unspecified with hypoxia Anemia, unspecified COMPREHENSIVE METABOLIC PANEL Routine 12/26/2024 6:10 AM EDT Chronic obstructive pulmonary disease, unspecified Respiratory failure, unspecified with hypoxia Anemia, unspecified documented in this encounter Results * (ABNORMAL) Comprehensive metabolic panel (12/26/2024 6:10 AM EDT) Sodium 138 133 - 145 mmol/L LAB CHEMISTRY METHOD 12/26/2024 12:24 PM [facility] Potassium 4.0 3.5 - 5.5 mmol/L LAB CHEMISTRY METHOD 12/26/2024 12:24 PM [facility] Chloride 103 96 - 110 mmol/L LAB CHEMISTRY METHOD 12/26/2024 12:24 PM [facility] CO2 27 21 - 32 mmol/L LAB CHEMISTRY METHOD 12/26/2024 12:24 PM [facility] Anion Gap 8 3 - 11 LAB CHEMISTRY METHOD 12/26/2024 12:24 PM [facility] Glucose 165(H) 70 - 100 mg/dL LAB CHEMISTRY METHOD 12/26/2024 12:24 PM [facility] BUN 32(H) 5 - 25 mg/dL LAB CHEMISTRY METHOD 12/26/2024 12:24 PM [facility] Creatinine 1.54(H) 0.70 - 1.30 mg/dL LAB CHEMISTRY METHOD 12/26/2024 12:24 PM [facility] eGFR 44(L) >=60 mL/min/1. 73m2 LAB CHEMISTRY METHOD 12/26/2024 12:24 PM [facility] Comment:Calculation based on the Chronic Kidney Disease Epidemiology Collaboration (CKD-EPI) equation refit without adjustment for race. BUN/Creatinine Ratio 20.8 LAB CHEMISTRY METHOD 12/26/2024 12:24 PM [facility] Calcium 8.2(L) 8.5 - 10.5 mg/dL LAB CHEMISTRY METHOD 12/26/2024 12:24 PM [facility] AST (SGOT) 18 10 - 42 unit/L LAB CHEMISTRY METHOD 12/26/2024 12:24 PM [facility] ALT (SGPT) 35 10 - 60 unit/L LAB CHEMISTRY METHOD 12/26/2024 12:24 PM EDT [facility] Alkaline Phosphatase 114 42 - 121 unit/L LAB CHEMISTRY METHOD 12/26/2024 12:24 PM EDT [facility] Total Protein 5.5(L) 6.0 - 8.0 g/dL LAB CHEMISTRY METHOD 12/26/2024 12:24 PM T [facility] Albumin 2.6(L) 3.2 - 5.0 g/dL LAB CHEMISTRY METHOD 12/26/2024 12:24 PM EDT [facility] Total Bilirubin 0.5 0.0 - 1.4 mg/dL LAB CHEMISTRY METHOD 12/26/2024 12:24 PM EDT [facility] Blood Venous blood specimen / Unknown Venipuncture / Unknown 12/26/2024 6:10 AM EDT 12/26/2024 10:45 AM EDT Sera Joe MD LAB BLOOD ORDERABLES Final Resul t [facility] [address] [place] [address], * (ABNORMAL) Complete blood count (12/26/2024 6:10 AM EDT) WBC 12.4(H) 4.8 - 10.8 K/mcL LAB HEMETOLOGY METHOD 12/26/2024 12:17 PM EDT [facility] RBC 5.00 4.50 - 5.50 M/mcL LAB HEMETOLOGY METHOD 12/26/2024 12:17 PM EDT [facility] Hemoglobin 13.6 13.5 - 17.5 g/dL LAB HEMETOLOGY METHOD 12/26/2024 12:17 PM EDT [facility] Hematocrit 42.8 42.0 - 54.0 % LAB HEMETOLOGY METHOD 12/26/2024 12:17 PM EDT [facility] MCV 84.9 79.0 - 98.0 FL LAB HEMETOLOGY METHOD 12/26/2024 12:17 PM EDT [facility] MCH 27.0 27.0 - 32.0 pcg LAB HEMETOLOGY METHOD 12/26/2024 12:17 PM EDT [facility] MCHC 31.8(L) 32.0 - 37.0 g/dL LAB HEMETOLOGY METHOD 12/26/2024 12:17 PM EDT [facility] RDW 13.9 11.0 - 15.0 % LAB HEMETOLOGY METHOD 12/26/2024 12:17 PM EDT [facility] Platelets 188 130 - 400 K/mcL LAB HEMETOLOGY METHOD 12/26/2024 12:17 PM EDT [facility] MPV 11.5(H) 7.0 - 11.0 FL LAB HEMETOLOGY METHOD 12/26/2024 12:17 PM EDT [facility] NRBC 0.0 <1.0 % LAB HEMETOLOGY METHOD 12/26/2024 12:17 PM EDT [facility] NRBC Absolute 0.00 <0.10 K/mcL LAB HEMETOLOGY METHOD 12/26/2024 12:17 PM EDT [facility] Blood Venous blood specimen / Unknown Venipuncture / Unknown 12/26/2024 6:10 AM EDT 12/26/2024 10:45 AM EDT us Sera Joe MD LAB BLOOD ORDERABLES Final Resul t [facility] [address] [place] [address], documented in this encounter Visit Diagnoses Diagnosis Chronic obstructive pulmonary disease, unspecified (CMS/HCC V24, CMS/HCC V28) Respiratory failure, unspecified with hypoxia (CMS/HCC V24, CMS/HCC V28) Anemia, unspecified documented in this encounter Care Teams Roofing Sales Representative Relationship Specialty Start Date End Date Ember Guerra MD [address] [place] [address] [address] [place] [address] PCP - General Geriatric Medicine 08/11/24 documented as of this encounter
--- OUTSIDE RECORDS SUMMARY | 2025-06-04 20:32 | XMS_ITS | Encounter Summary ---
Author Organization [facility] Address [address] [place] [address] Care Team Providers Care Hand Frame Surgical Elastic Knitter Name Role Phone Ember Guerra MD Primary Care Provider [phone] Encounter Details Date Type Department Care Team (Late st Contact Info) Description 07/30/2024 Lab Requisition [facility] - Main Lab [address] [facility] [place] [address] Ember Guerra MD [address] [place] [address] Other viral infections of unspecified site Social [...] Travel phlebotomy fee (08/01/2024 7:28 AM EST) [facility] TRAVEL PHLEBOTOMY FEE Completed 08/01/2024 10:01 AM EST [facility] Blood Venous blood specimen / Unknown Venipuncture / Unknown 08/01/2024 7:28 AM EST 08/01/2024 9:25 AM EST Ember Guerra MD LAB BLOOD ORDERABLES Final Resul t [facility] [address] [place] [address], * (ABNORMAL) Basic metabolic panel (08/01/2024 7:28 AM EST) Sodium 138 133 - 145 mmol/L LAB CHEMISTRY METHOD 08/01/2024 10:56 AM [facility] Potassium 4.1 3.5 - 5.5 mmol/L LAB CHEMISTRY METHOD 08/01/2024 10:56 AM [facility] Chloride 103 96 - 110 mmol/L LAB CHEMISTRY METHOD 08/01/2024 10:56 AM [facility] CO2 29 21 - 32 mmol/L LAB CHEMISTRY METHOD 08/01/2024 10:56 AM [facility] Anion Gap 6 3 - 11 LAB CHEMISTRY METHOD 08/01/2024 10:56 AM [facility] Glucose 136(H) 70 - 100 mg/dL LAB CHEMISTRY METHOD 08/01/2024 10:56 AM [facility] BUN 28(H) 5 - 25 mg/dL LAB CHEMISTRY METHOD 08/01/2024 10:56 AM [facility] Creatinine 1.51(H) 0.70 - 1.30 mg/dL LAB CHEMISTRY METHOD 08/01/2024 10:56 AM [facility] eGFR 46(L) >=60 mL/min/1. 73m2 LAB CHEMISTRY METHOD 08/01/2024 10:56 AM [facility] Comment:Calculation based on the Chronic Kidney Disease Epidemiology Collaboration (CKD-EPI) equation refit without adjustment for race. BUN/Creatinine Ratio 18.5 LAB CHEMISTRY METHOD 08/01/2024 10:56 AM [facility] Calcium 9.2 8.5 - 10.5 mg/dL LAB CHEMISTRY METHOD 08/01/2024 10:56 AM [facility] Blood Venous blood specimen / Unknown Venipuncture / Unknown 08/01/2024 7:28 AM EST 08/01/2024 9:25 AM EST Ember Guerra MD LAB BLOOD ORDERABLES Final Resul t [facility] [address] [place] [address], * (ABNORMAL) Complete blood count (08/01/2024 7:28 AM EST) WBC 8.0 4.8 - 10.8 K/mcL LAB HEMETOLOGY METHOD 08/01/2024 10:46 AM [facility] RBC 5.10 4.50 - 5.50 M/mcL LAB HEMETOLOGY METHOD 08/01/2024 10:46 AM [facility] Hemoglobin 13.5 13.5 - 17.5 g/dL LAB HEMETOLOGY METHOD 08/01/2024 10:46 AM [facility] Hematocrit 42.8 42.0 - 54.0 % LAB HEMETOLOGY METHOD 08/01/2024 10:46 AM [facility] MCV 83.6 79.0 - 98.0 FL LAB HEMETOLOGY METHOD 08/01/2024 10:46 AM [facility] MCH 26.4(L) 27.0 - 32.0 pcg LAB HEMETOLOGY METHOD 08/01/2024 10:46 AM [facility] MCHC 31.5(L) 32.0 - 37.0 g/dL LAB HEMETOLOGY METHOD 08/01/2024 10:46 AM EST [facility] RDW 14.4 11.0 - 15.0 % LAB HEMETOLOGY METHOD 08/01/2024 10:46 AM [facility] Platelets 242 130 - 400 K/mcL LAB HEMETOLOGY METHOD 08/01/2024 10:46 AM [facility] MPV 11.2(H) 7.0 - 11.0 FL LAB HEMETOLOGY METHOD 08/01/2024 10:46 AM [facility] NRBC 0.0 <1.0 % LAB HEMETOLOGY METHOD 08/01/2024 10:46 AM [facility] NRBC Absolute 0.00 <0.10 K/mcL LAB HEMETOLOGY METHOD 08/01/2024 10:46 AM [facility] Blood Venous blood specimen / Unknown Venipuncture / Unknown 08/01/2024 7:28 AM EST 08/01/2024 9:25 AM EST us Ember Guerra MD LAB BLOOD ORDERABLES Final Resul t [facility] [address] [place] [address], documented in this encounter Visit Diagnoses Diagnosis Other viral infections of unspecified site documented in this encounter Care Teams Hand Frame Surgical Elastic Knitter Relationship Specialty Start Date End Date Ember Guerra MD [address] [place] [address] [address] [place] [address] PCP - General Geriatric Medicine 08/11/24 documented as of this encounter
--- OUTSIDE RECORDS SUMMARY | 2025-06-04 20:32 | XMS_ITS | Encounter Summary ---
Author Organization [facility] Address [address] [place] [id number] Care Team Providers Care Medication Tech Name Role Phone Ember Guerra MD Primary Care Provider Encounter Details Date Type Department Care Team (Latest Contact Info) Description 03/23/2025 Lab Requisition [facility] - Main Lab [address] [place] [address] Sera Joe MD [address] [place] [address] Type 2 diabetes mellitus without complications ([facility]/HCC V24, CMS/HCC V28); Chronic kidney disease, stage 3 unspecified (CMS/HCC V24, CMS/[facility] V28); Chronic obstructive pulmonary disease with (acute) exacerbation (CMS/HCC V24, CMS/[facility] V28) Social History Tobacco Use Types Packs/Day Years [...] Associated Diagnosis Comments COMPLETE BLOOD COUNT Routine 03/23/2025 5:40 AM EDT Type 2 diabetes mellitus without complications (CMS/HCC V24, CMS/HCC V28) Chronic kidney disease, stage 3 unspecified (CMS/HCC V24, CMS/[facility] V28) Chronic obstructive pulmonary disease with (acute) exacerbation (CMS/HCC V24, CMS/[facility] V28) HEMOGLOBIN A1C Routine 03/23/2025 5:40 AM EDT Type 2 diabetes mellitus without complications (CMS/[facility] V24, [facility] V28) Chronic kidney disease, stage 3 unspecified ([facility] V24, [facility] V28) Chronic obstructive pulmonary disease with (acute) exacerbation ([facility] V24, [facility] V28) COMPREHENSIVE METABOLIC PANEL Routine 03/23/2025 5:40 AM EDT Type 2 diabetes mellitus without complications ([facility] [place], [facility] V28) Chronic kidney disease, stage 3 unspecified ([facility] V24, [facility] V28) Chronic obstructive pulmonary disease with (acute) exacerbation ([facility] V24, [facility] V28) documented in this encounter Results * (ABNORMAL) Hemoglobin A1c (03/23/2025 5:40 AM EDT) [facility] Hemoglobin A1C 10.1(H) <6.5 % LAB CHEMISTRY METHOD 03/23/2025 1:42 PM EDT [facility] Mean Bld Glu Estim. 243 mg/dL LAB CHEMISTRY METHOD 03/23/2025 1:42 PM EDT [facility] Blood Venous blood specimen / Unknown Venipuncture / Unknown 03/23/2025 5:40 AM EDT 03/23/2025 9:03 AM EDT us Sera Joe MD LAB BLOOD ORDERABLES Final Resul t [facility] [address] [place] [address], * (ABNORMAL) Comprehensive metabolic panel (03/23/2025 5:40 AM EDT) [facility] Sodium 140 133 - 145 mmol/L LAB CHEMISTRY METHOD 03/23/2025 10:25 AM EDT [facility] Potassium 3.7 3.5 - 5.5 mmol/L LAB CHEMISTRY METHOD 03/23/2025 10:25 AM EDT [facility] Chloride 103 96 - 110 mmol/L LAB CHEMISTRY METHOD 03/23/2025 10:25 AM [facility] CO2 27 21 - 32 mmol/L LAB CHEMISTRY METHOD 03/23/2025 10:25 AM [facility] Anion Gap 10 3 - 11 LAB CHEMISTRY METHOD 03/23/2025 10:25 AM [facility] Glucose 177(H) 70 - 100 mg/dL LAB CHEMISTRY METHOD 03/23/2025 10:25 AM [facility] BUN 32(H) 5 - 25 mg/dL LAB CHEMISTRY METHOD 03/23/2025 10:25 AM [facility] Creatinine 1.35(H) 0.70 - 1.30 mg/dL LAB CHEMISTRY METHOD 03/23/2025 10:25 AM [facility] eGFR 52(L) >=60 mL/min/1. 73m2 LAB CHEMISTRY METHOD 03/23/2025 10:25 AM [facility] Comment:Calculation based on the Chronic Kidney Disease Epidemiology Collaboration (CKD-EPI) equation refit without adjustment for race. BUN/Creatinine Ratio 23.7 LAB CHEMISTRY METHOD 03/23/2025 10:25 AM [facility] Calcium 8.3(L) 8.5 - 10.5 mg/dL LAB CHEMISTRY METHOD 03/23/2025 10:25 AM [facility] AST (SGOT) 10 10 - 42 unit/L LAB CHEMISTRY METHOD 03/23/2025 10:25 AM [facility] ALT (SGPT) 26 10 - 60 unit/L LAB CHEMISTRY METHOD 03/23/2025 10:25 AM [facility] Alkaline Phosphatase 146(H) 42 - 121 unit/L LAB CHEMISTRY METHOD 03/23/2025 10:25 AM [facility] Total Protein 5.5(L) 6.0 - 8.0 g/dL LAB CHEMISTRY METHOD 03/23/2025 10:25 AM EDT [facility] Albumin 2.9(L) 3.2 - 5.0 g/dL LAB CHEMISTRY METHOD 03/23/2025 10:25 AM EDT [facility] Total Bilirubin 0.4 0.0 - 1.4 mg/dL LAB CHEMISTRY METHOD 03/23/2025 10:25 AM T [facility] Blood Venous blood specimen / Unknown Venipuncture / Unknown 03/23/2025 5:40 AM EDT 03/23/2025 9:03 AM EDT us Sera Joe MD LAB BLOOD ORDERABLES Final Resul t [facility] [address] [place] [address], [place] [phone] * (ABNORMAL) Complete blood count (03/23/2025 5:40 AM EDT) WBC 12.3(H) 4.8 - 10.8 K/mcL LAB HEMETOLOGY METHOD 03/23/2025 10:14 AM [facility] RBC 5.50 4.50 - 5.50 M/[facility] LAB HEMETOLOGY METHOD 03/23/2025 10:14 AM [facility] Hemoglobin 14.7 13.5 - 17.5 g/dL LAB HEMETOLOGY METHOD 03/23/2025 10:14 AM [facility] Hematocrit 45.1 42.0 - 54.0 % LAB HEMETOLOGY METHOD 03/23/2025 10:14 AM [facility] MCV 82.3 79.0 - 98.0 FL LAB HEMETOLOGY METHOD 03/23/2025 10:14 AM [facility] MCH 26.8(L) 27.0 - 32.0 pcg LAB HEMETOLOGY METHOD 03/23/2025 10:14 AM [facility] MCHC 32.6 32.0 - 37.0 g/dL LAB HEMETOLOGY METHOD 03/23/2025 10:14 AM EDT [facility] RDW 13.4 11.0 - 15.0 % LAB HEMETOLOGY METHOD 03/23/2025 10:14 AM EDT [facility] Platelets 248 130 - 400 K/mcL LAB HEMETOLOGY METHOD 03/23/2025 10:14 AM EDT [facility] MPV 10.9 7.0 - 11.0 FL LAB HEMETOLOGY METHOD 03/23/2025 10:14 AM EDT [facility] NRBC 0.0 <1.0 % LAB HEMETOLOGY METHOD 03/23/2025 10:14 AM EDT [facility] NRBC Absolute 0.00 <0.10 K/mcL LAB HEMETOLOGY METHOD 03/23/2025 10:14 AM EDT [facility] Blood Venous blood specimen / Unknown Venipuncture / Unknown 03/23/2025 5:40 AM EDT 03/23/2025 9:03 AM EDT Sera Joe MD LAB BLOOD ORDERABLES Final Resul t [facility] [address] [place] [address], documented in this encounter Visit Diagnoses Diagnosis Type 2 diabetes mellitus without complications (CMS/HCC V24, CMS/HCC V28) Chronic kidney disease, stage 3 unspecified (CMS/HCC V24, CMS/HCC V28) Chronic obstructive pulmonary disease with (acute) exacerbation (CMS/HCC V24, CMS/HCC V28) documented in this encounter Care Teams Medication Tech Relationship Specialty Start Date End Date Ember Guerra MD [address] [place] [address] [address] [place] [address] PCP - General Geriatric Medicine 08/11/24 documented as of this encounter
--- OUTSIDE RECORDS SUMMARY | 2025-06-04 20:32 | XMS_ITS | Patient Health Record ---
Author Organization [facility] Address [address] [place] [address] Care Team Providers Care Inspector Outside Steam Distribution Name Role Phone Forrest Harrington Primary Care Provider Zaina Cesar Unavailable [phone] Reason For Referral No Information Medications Medication SIG (Take, Route, Frequency, Duration) Notes Start Date End Date Status clonazePAM Not-Takin g glyBURIDE Not-Taking Losartan Potassium 25 MG TAKE 1 TO 2 TAB LETS BY MOUTH 1 TO 2 HOURS BEFORE BED NEEDED RESTLESS LEGS Oral; Duration: 30 Active Extra-Depth Diabetic Shoes with 3 Pair Custom heat-molded multi-density innersoles . 1pair shoes/3sets inserts . .; Duration: 1 year 07/08/2012 Not-Taking cloNIDine HCl 0.1 MG TAKE 1 TO 2 TABLETS BY MOUTH 1 TO 2 HOURS BEFORE BED NEEDED RESTLESS LEGS Oral; Duration: 60 Active Lisinopril Not-Takin g Atenolol 50 MG TAKE 1 TO 2 TABLETS BY MOUTH 1 TO 2 HOURS BEFORE BED NEEDED RESTLESS LEGS Oral; Duration: 30 Active ibuprofen 1 tab Oral; Duration : 14 days Active glipiZIDE 10 MG TAKE 1 TO 2 TABLETS BY MOUTH 1 TO 2 HOURS BEFORE BED NEEDED RESTLESS LEGS Oral; Duration: 30 Active Aspirin 81 MG 1 tablet Orally Once a day; Duration: 30 day(s) Active amLODIPine Besylate 10 MG TAKE 1 TO 2 TABLETS BY MOUTH 1 TO 2 HOURS BEFORE BED NEEDED RESTLESS LEGS Oral; Duration: 30 Active metFORMIN HCl Active Gabapentin 100 MG as directed Orally Active Lantus 40 units daily Acti ve Furosemide 20 MG 1 tablet Orally Once a day; Duration: 30 day(s) 10/10/2019 Active Symbicort 160-4.5 MCG/ACT 2 puffs Inhalation Twice a day 10/10/2019 Active NovoLOG 100 UNIT/ML as directed Subcutaneous 10/10 Active Pravastatin Sodium 40 MG take 1 tablet b y mouth once daily Oral; Duration: 30 Active Social History Alcohol Screen Question Answer Notes Did you have a drink containing alcohol in the p ast year? No Points 0 Interpretation Negative Problems Problem Type SNOMED Code ICD Code Onset Dates Problem Status W/U Status Risk Notes Problem Acquired hammer toe of left foot (3868575386981930 ) Other hammer toe(s) (acquired), left foot (M20.42) Active confirmed Problem Polyneuropathy due to type 2 diabetes mellitus (568261143) Type 2 diabetes mellitus with diabetic polyneuropathy (E11.42) Active confirmed Plan Of Treatment Pending Test Test Name Order Date [id number] NAIL, 6 OR MORE 07/08/2012 [id number] NAIL, 6 OR MORE 04/17/2014 [id number] NAIL, 6 OR MORE 10/27/2019 [id number] Plate 07/08/2012 [id number] Plate 04/17/2014 [id number] Plate 05/17/2014 [id number] SKIN LESIONS, OVER 4 07/08/20 12 Insurance Providers Payer Name Payer Address Payer Phone Subscriber Number Group Number Insured Name Patient Relationship to Insured Coverage Start Date Coverage End Date Medicare National [employer] [address] [place] [address] [id number] Phil Ledbetter Self - patient is the insured Medical (General) History Medical History History ICD Code high blood pressure cancer diabetic Gall bladder problems Menieres disease nerve disorder Numbness Stomach ulcer Chicken pox Surgical History Surgery Date(Month/Year) gall bladder 1982 Hospitalization History Reason Date(Month/Year) Edilia kessler- bleeding ulcer 03/2019
--- OUTSIDE RECORDS SUMMARY | 2025-06-04 20:32 | XMS_ITS | Clinical Summary ---
Author Organization [address] [facility] Address [address] [place] [address] Phone Care Team Providers Care Printer Machine Name Role Phone Ember Guerra MD Primary Care Provider [phone] Encounters Date Type Department Care Team Description 03/23/2025 Lab Requisition [facility] - Main Lab [address] [facility] [place] [address] Sera Joe MD Type 2 diabetes mellitus without complications ([facility] [place], [facility] V28); Chronic kidney disease, stage 3 unspecified ([facility] [place], [facility] V[facility]); Chronic obstructive pulmonary disease with (acute) exacerbation ([facility] [place], [facility] V28) from Last 3 Months Surgical History Surgery Date Site/Laterality Comments BYPASS GRAFT PROCEDURE: CT AMPUTATION TOE METATARSOPHALANGEAL JOINT; 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 CHOLECYSTECTOMY PROCEDURE: HISTORICAL CHOLECYSTECTOMY FLEXIBLE SIGMOIDOSCOPY 07/30/2005 PROCEDURE: CT SIGMOIDOSCOPY FLX DX W/COLLJ SPEC BR/WA IF PFRMD; COMMENT: diverticulosis; otherwise neg to 70 cm FLEXIBLE SIGMOIDOSCOPY 06/17/2011 PROCEDURE: CT SIGMOIDOSCOPY FLX DX W/COLLJ SPEC BR/WA IF PFRMD; COMMENT: negative to 35 cm, tics Medical History Medical History Date Comments Prostate cancer ([facility] [place] , [facility] V28) 08/07/2008 DX:Prostate cancer (HCC) Ventricular tachycardia ([facility] V24, [facility] V28) 09/12/2009 DX:Ventricular tachycardia ( HCC) Family History Medical History Relation Name Comments [...] 1950 Diabetes: Annual Retina Eye Exam 1950 Colorectal Cancer Screening: Colonoscopy 08/11/2024 Diabetes: Annual Urine Albumin-Creatinine Ratio (uACR) 08/11/2024 11/12/2021, 09/25/2021 Falls Risk Assessment 08/11/2024 Social Influencers of Health Screening 08/11/2024 Depression Screening 09/28/2024 COVID-19 Vaccine ( season) 2025 12/25/2023, 11/10/2020, 10/13/2020 Influenza Vaccine (#1) 2025 , 12/25/2023, 06/16/2023, Additional history exists Diabetes: Blood Sugar Control Test (HGBA1C) 09/22/2025 03/23/2025, 08/11/2024 Diabetes: Annual GFR (Glomerular Filtration Rate) 03/23/2026 03/23/2025, 12/26/2024, 08/11/2024, Additional history exists Hypertension/CHF/CAD Annual BMP Blood Test 03/23/2026 03/23/2025, 12/26/2024, 08/11/2024, Additional history exists Cholesterol Screening (Lipid Panel) 11/15/2026 11/15/2021 DTaP,Tdap,and Td Vaccines (4 - Td or Tdap) 02/06/2033 02/06/2023, 04/08/2013, 01/25/2009 Pneumococcal Vaccine: 50+ Years Completed 10/17/2015, 03/06/2015, 03/15/2011, Additional history exists Zoster Vaccines Completed 05/13/2018, 12/27, 10/17/2015 RSV Immunization Adult Patients Completed 10/04/2024 HIB Vaccines Aged Out No longer eligi [...] patient's age to complete this topic Meningococcal B Vaccine Aged Out No l onger eligible based on patient's age to complete this topic RSV Immunization Patients Under 20 months Aged Out No longer eligible based on patient's age to complete this topic Varicella Vaccines Aged Out No longer eligible based on patient's age to complete this topic Procedures Procedure Name Priority Date/Time Associated Diagnosis Comments HEMOGLOBIN A1C Routine 03/23/2025 5:40 AM EDT Type 2 diabetes mellitus without complications (CMS/HCC V24, CMS/HCC V28) Chronic kidney disease, stage 3 unspecified (CMS/HCC V24, CMS/HCC V28) Chronic obstructive pulmonary disease with (acute) exacerbation (CMS/HCC V24, CMS/HCC V28) COMPREHENSIVE METABOLIC PANEL Routine 03/23/2025 5:40 AM EDT Type 2 diabetes mellitus without complications (CMS/HCC V24, CMS/HCC V28) Chronic kidney disease, stage 3 unspecified (CMS/HCC V24, CMS/HCC V28) Chronic obstructive pulmonary disease with (acute) exacerbation (CMS/HCC V24, CMS/HCC V28) COMPLETE BLOOD COUNT Routine 03/23/2025 5:40 AM EDT Type 2 diabetes mellitus without complications (CMS/HCC V24, CMS/HCC V28) Chronic kidney disease, stage 3 unspecified (CMS/HCC V24, CMS/HCC V28) Chronic obstructive pulmonary disease with (acute) exacerbation (CMS/HCC V24, CMS/HCC V28) from Last 3 Months Results * (ABNORMAL) Complete blood count (03/23/2025 5:40 AM EDT) WBC 12.3(H) 4.8 - 10.8 K/[facility] LAB [facility]OLOG[facility] RBC 5.50 4.50 - 5.50 M/mcL LAB HEMETOLOGY METHOD 03/23/2025 10:14 AM [facility] Hemoglobin 14.7 13.5 - 17.5 g/dL LAB HEMETOLOGY METHOD 03/23/2025 10:14 AM [facility] Hematocrit 45.1 42.0 - 54.0 % LAB HEMETOLOGY METHOD 03/23/2025 10:14 AM [facility] MCV 82.3 79.0 - 98.0 FL LAB HEMETOLOGY METHOD 03/23/2025 10:14 AM [facility] MCH 26.8(L) 27.0 - 32.0 pcg LAB HEMETOLOGY METHOD 03/23/2025 10:14 AM [facility] MCHC 32.6 32.0 - 37.0 g/dL LAB HEMETOLOGY METHOD 03/23/2025 10:14 AM [facility] RDW 13.4 11.0 - 15.0 % LAB HEMETOLOGY METHOD 03/23/2025 10:14 AM [facility] Platelets 248 130 - 400 K/mcL LAB HEMETOLOGY METHOD 03/23/2025 10:14 AM [facility] MPV 10.9 7.0 - 11.0 FL LAB HEMETOLOGY METHOD 03/23/2025 10:14 AM [facility] NRBC 0.0 <1.0 % LAB HEMETOLOGY METHOD 03/23/2025 10:14 AM [facility] NRBC Absolute 0.00 <0.10 K/mcL LAB HEMETOLOGY METHOD 03/23/2025 10:14 AM [facility] Blood Venous blood specimen / Unknown Venipuncture / Unknown 03/23/2025 5:40 AM EDT 03/23/2025 9:03 AM EDT us Sera Joe MD LAB BLOOD ORDERABLES Final Resul t Performing Organization Address City/[facility]/ZIP Co de Phone Number [facility] [address] [place] [address], [place] [phone] * (ABNORMAL) Hemoglobin A1c (03/23/2025 5:40 AM EDT) Hemoglobin A1C 10.1(H) <6.5 % LAB CHEMISTRY METHOD 03/23/2025 1:42 PM EDT [facility] Mean Bld Glu Estim. 243 mg/dL LAB CHEMISTRY METHOD 03/23/2025 1:42 PM EDT [facility] Blood Venous blood specimen / Unknown Venipuncture / Unknown 03/23/2025 5:40 AM EDT 03/23/2025 9:03 AM EDT us Sera Joe MD LAB BLOOD ORDERABLES Final Resul t Performing Organization Address [facility]/ZIP Co de Phone Number [facility] [address] [place] [address], [place] [phone] * (ABNORMAL) Comprehensive metabolic panel (03/23/2025 5:40 AM EDT) Sodium 140 133 - 145 mmol/L LAB CHEMISTRY METHOD 03/23/2025 10:25 AM EDT [facility] Potassium 3.7 3.5 - 5.5 mmol/L LAB CHEMISTRY METHOD 03/23/2025 10:25 AM EDT [facility] Chloride 103 96 - 110 mmol/L LAB CHEMISTRY METHOD 03/23/2025 10:25 AM EDT [facility] CO2 27 21 - 32 mmol/L LAB CHEMISTRY METHOD 03/23/2025 10:25 AM EDT [facility] Anion Gap 10 3 - 11 LAB CHEMISTRY METHOD 03/23/2025 10:[facility] Glucose 177(H) 70 - 100 mg/dL LAB CHEMISTRY METHOD 03/23/2025 10:25 AM [facility] BUN 32(H) 5 - 25 mg/dL LAB CHEMISTRY METHOD 03/23/2025 10:25 AM [facility] Creatinine 1.35(H) 0.70 - 1.30 mg/dL LAB CHEMISTRY METHOD 03/23/2025 10:25 AM [facility] eGFR 52(L) >=60 mL/min/1. 73m2 LAB CHEMISTRY METHOD 03/23/2025 10:25 AM [facility] Comment:Calculation based on the Chronic Kidney Disease Epidemiology Collaboration (CKD-EPI) equation refit without adjustment for race. BUN/Creatinine Ratio 23.7 LAB CHEMISTRY METHOD 03/23/2025 10:25 AM [facility] Calcium 8.3(L) 8.5 - 10.5 mg/dL LAB CHEMISTRY METHOD 03/23/2025 10:25 AM [facility] AST (SGOT) 10 10 - 42 unit/L LAB CHEMISTRY METHOD 03/23/2025 10:25 AM [facility] ALT (SGPT) 26 10 - 60 unit/L LAB CHEMISTRY METHOD 03/23/2025 10:25 AM [facility] Alkaline Phosphatase 146(H) 42 - 121 unit/L LAB CHEMISTRY METHOD 03/23/2025 10:25 AM [facility] Total Protein 5.5(L) 6.0 - 8.0 g/dL LAB CHEMISTRY METHOD 03/23/2025 10:25 AM [facility] Albumin 2.9(L) 3.2 - 5.0 g/dL LAB CHEMISTRY METHOD 03/23/2025 10:25 AM [facility] Total Bilirubin 0.4 0.0 - 1.4 mg/dL LAB CHEMISTRY METHOD 03/23/2025 10:25 AM EDT [facility] Blood Venous blood specimen / Unknown Venipuncture / Unknown 03/23/2025 5:40 AM EDT 03/23/2025 9:03 AM EDT us Sera Joe MD LAB BLOOD ORDERABLES Final Resul t [facility] [address] [place] [address], from Last 3 Months Insurance MEDICARE [facility] Care Teams Printer Machine Relationship Specialty Start Date End Date Ember Guerra MD [address] [place] [address] [address] [place] [address] PCP - General Geriatric Medicine 08/11/24
--- OUTSIDE RECORDS SUMMARY | 2025-06-04 20:32 | XMS_ITS | Encounter Summary ---
Author Organization [facility] Address [address] [place] [address] Care Team Providers Care Cook Ship Name Role Phone Ember Guerra MD Primary Care Provider [phone] Encounter Details Date Type Department Care Team (Late st Contact Info) Description 08/11/2024 Lab Requisition [facility] - Main Lab [address] [facility] [place] [address] Ember Guerra MD [address] [place] [address] Vitamin D deficiency, unspecified; Other viral infections of unspecified site; Unsteadiness on feet; Muscle weakness (generalized); Acute kidney failure, unspecified (CMS/HCC V24); Shortness of breath; Atherosclerotic heart disease of [place] coronary artery without angina pectoris; Essential (primary) hypertension; 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 V24, CMS/HCC V28) Social History Tobacco Use Types Packs/Day [...] Shortness of breath Atherosclerotic heart disease of [place] coronary artery without angina pectoris Essential (primary) 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) COMPLETE BLOOD COUNT Routine 08/11/2024 6:08 AM EST Vitamin D deficiency, unspecified Other viral infections of unspecified site Unsteadiness on feet Muscle weakness (generalized) Acute kidney failure, unspecified (CMS/HCC) Shortness of breath Atherosclerotic heart disease of [place] coronary artery without angina pectoris Essential (primary) 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) THYROID STIMULATING HORMONE Routine 08/11/2024 6:08 AM EST Vitamin D deficiency, unspecified Other viral infections of unspecified site Unsteadiness on feet Muscle weakness (generalized) Acute kidney failure, unspecified (CMS/HCC) Shortness of breath Atherosclerotic heart disease of [place] coronary artery without angina pectoris Essential (primary) 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) HEMOGLOBIN A1C Routine 08/11/2024 6:08 AM EST Vitamin D deficiency, unspecified Other viral infections of unspecified site Unsteadiness on feet Muscle weakness (generalized) Acute kidney failure, unspecified (CMS/HCC) Shortness of breath Atherosclerotic heart disease of [place] coronary artery without angina pectoris Essential (primary) 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) FOLATE Routine 08/11/2024 6:08 AM EST Vitamin D deficiency, unspecified Other viral infections of unspecified site Unsteadiness on feet Muscle weakness (generalized) Acute kidney failure, unspecified (CMS/HCC) Shortness of breath Atherosclerotic heart disease of [place] coronary artery without angina pectoris Essential (primary) 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) VITAMIN B12 Routine 08/11/2024 6:08 AM EST Vitamin D deficiency, unspecified Other viral infections of unspecified site Unsteadiness on feet Muscle weakness (generalized) Acute kidney failure, unspecified (CMS/HCC) Shortness of breath Atherosclerotic heart disease of [place] coronary artery without angina pectoris Essential (primary) 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) COMPREHENSIVE METABOLIC PANEL Routine 08/11/2024 6:08 AM EST Vitamin D deficiency, unspecified Other viral infections of unspecified site Unsteadiness on feet Muscle weakness (generalized) Acute kidney failure, unspecified (CMS/HCC) Shortness of breath Atherosclerotic heart disease of [place] coronary artery without angina pectoris Essential (primary) 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) documented in this encounter Results * (ABNORMAL) Hemoglobin A1c (08/11/2024 6:08 AM EST) Hemoglobin A1C 9.2(H) <6.5 % LAB CHEMISTRY METHOD 08/11/2024 10:54 AM EST [facility] Mean Bld Glu Estim. 217 mg/dL LAB CHEMISTRY METHOD 08/11/2024 10:54 AM EST [facility] Blood Venous blood specimen / Unknown Venipuncture / Unknown 08/11/2024 6:08 AM EST 08/11/2024 7:48 AM EST Ember Guerra MD LAB BLOOD ORDERABLES Final Resul t Performing Organization Address City/[facility]/ZIP Co de Phone Number [facility] [address] [place] [address], * (ABNORMAL) Vitamin D 25 hydroxy (08/11/2024 6:08 AM EST) Vit D, 25-Hydroxy 21.0(L) 30.0 - 80.0 ng/mL LAB CHEMISTRY METHOD 08/11/2024 9:02 AM EST [facility] Blood Venous blood specimen / Unknown Venipuncture / Unknown 08/11/2024 6:08 AM EST 08/11/2024 7:48 AM EST Ember Guerra MD LAB BLOOD ORDERABLES Final Resul t Performing Organization Address City/[facility]/ZIP Co de Phone Number [facility] [address] [place] [address], * Folate (08/11/2024 6:08 AM EST) Pathologist [facility] Folate 11.8 2.8 - 17.0 ng/ml LAB CHEMISTRY METHOD 08/11/2024 9:01 AM EST [facility] Blood Venous blood specimen / Unknown Venipuncture / Unknown 08/11/2024 6:08 AM EST 08/11/2024 7:48 AM EST us Ember Guerra MD LAB BLOOD ORDERABLES Final Resul t Performing Organization Address City/[facility]/ZIP Co de Phone Number [facility] [address] [place] [address], [place] [phone] * (ABNORMAL) Vitamin B12 (08/11/2024 6:08 AM EST) [facility] Vitamin B-12 963(H) 250 - 900 pcg/mL LAB CHEMISTRY METHOD 08/11/2024 9:01 AM EST [facility] Blood Venous blood specimen / Unknown Venipuncture / Unknown 08/11/2024 6:08 AM EST 08/11/2024 7:48 AM EST us Ember Guerra MD LAB BLOOD ORDERABLES Final Resul t Performing Organization Address City/[facility]/ZIP Co de Phone Number [facility] [address] [place] [address], [place] [phone] * (ABNORMAL) Thyroid stimulating hormone (08/11/2024 6:08 AM EST) [facility] TSH 4.68(H) 0.40 - 4.00 mcIU/mL LAB CHEMISTRY METHOD 08/11/2024 9:03 AM EST [facility] Blood Venous blood specimen / Unknown Venipuncture / Unknown 08/11/2024 6:08 AM EST 08/11/2024 7:48 AM EST us Ember Guerra MD LAB BLOOD ORDERABLES Final Resul t [facility] [address] [place] [address], * (ABNORMAL) Comprehensive metabolic panel (08/11/2024 6:08 AM EST) Sodium 139 133 - 145 mmol/L LAB CHEMISTRY METHOD 08/11/2024 8:38 AM [facility] Potassium 3.9 3.5 - 5.5 mmol/L LAB CHEMISTRY METHOD 08/11/2024 8:38 AM [facility] Chloride 106 96 - 110 mmol/L LAB CHEMISTRY METHOD 08/11/2024 8:38 AM [facility] CO2 25 21 - 32 mmol/L LAB CHEMISTRY METHOD 08/11/2024 8:38 AM [facility] Anion Gap 8 3 - 11 LAB CHEMISTRY METHOD 08/11/2024 8:38 AM [facility] Glucose 80 70 - 100 mg/dL LAB CHEMISTRY METHOD 08/11/2024 8:38 AM [facility] BUN 31(H) 5 - 25 mg/dL LAB CHEMISTRY METHOD 08/11/2024 8:38 AM [facility] Creatinine 1.61(H) 0.70 - 1.30 mg/dL LAB CHEMISTRY METHOD 08/11/2024 8:38 AM [facility] eGFR 42(L) >=60 mL/min/1. 73m2 LAB CHEMISTRY METHOD 08/11/2024 8:38 AM [facility] Comment:Calculation based on the Chronic Kidney Disease Epidemiology Collaboration (CKD-EPI) equation refit without adjustment for race. BUN/Creatinine Ratio 19.3 LAB CHEMISTRY METHOD 08/11/2024 8:38 AM [facility] Calcium 8.8 8.5 - 10.5 mg/dL LAB CHEMISTRY METHOD 08/11/2024 8:38 AM [facility] AST (SGOT) 14 10 - 42 unit/L LAB CHEMISTRY METHOD 08/11/2024 8:38 AM [facility] ALT (SGPT) 24 10 - 60 unit/L LAB CHEMISTRY METHOD 08/11/2024 8:38 AM [facility] Alkaline Phosphatase 92 42 - 121 unit/L LAB CHEMISTRY METHOD 08/11/2024 8:38 AM [facility] Total Protein 5.9(L) 6.0 - 8.0 g/dL LAB CHEMISTRY METHOD 08/11/2024 8:38 AM [facility] Albumin 3.0(L) 3.2 - 5.0 g/dL LAB CHEMISTRY METHOD 08/11/2024 8:38 AM [facility] Total Bilirubin 0.5 0.0 - 1.4 mg/dL LAB CHEMISTRY METHOD 08/11/2024 8:38 AM [facility] Blood Venous blood specimen / Unknown Venipuncture / Unknown 08/11/2024 6:08 AM EST 08/11/2024 7:48 AM EST us Ember Guerra MD LAB BLOOD ORDERABLES Final Resul t [facility] [address] [place] [address], * (ABNORMAL) Complete blood count (08/11/2024 6:08 AM EST) WBC 9.6 4.8 - 10.8 K/mcL LAB HEMETOLOGY METHOD 08/11/2024 8:13 AM [facility] RBC 5.00 4.50 - 5.50 M/mcL LAB HEMETOLOGY METHOD 08/11/2024 8:13 AM [facility] Hemoglobin 13.2(L) 13.5 - 17.5 g/dL LAB HEMETOLOGY METHOD 08/11/2024 8:13 AM EST [facility] Hematocrit 41.1(L) 42.0 - 54.0 % LAB HEMETOLOGY METHOD 08/11/2024 8:13 AM EST [facility] MCV 82.7 79.0 - 98.0 FL LAB HEMETOLOGY METHOD 08/11/2024 8:13 AM EST [facility] MCH 26.6(L) 27.0 - 32.0 pcg LAB HEMETOLOGY METHOD 08/11/2024 8:13 AM EST [facility] MCHC 32.1 32.0 - 37.0 g/dL LAB HEMETOLOGY METHOD 08/11/2024 8:13 AM EST [facility] RDW 14.5 11.0 - 15.0 % LAB HEMETOLOGY METHOD 08/11/2024 8:13 AM EST [facility] Platelets 204 130 - 400 K/mcL LAB HEMETOLOGY METHOD 08/11/2024 8:13 AM EST [facility] MPV 11.0 7.0 - 11.0 FL LAB HEMETOLOGY METHOD 08/11/2024 8:13 AM EST [facility] NRBC 0.0 <1.0 % LAB HEMETOLOGY METHOD 08/11/2024 8:13 AM EST [facility] NRBC Absolute 0.00 <0.10 K/mcL LAB HEMETOLOGY METHOD 08/11/2024 8:13 AM [facility] Blood Venous blood specimen / Unknown Venipuncture / Unknown 08/11/2024 6:08 AM EST 08/11/2024 7:48 AM EST us Ember Gurera MD LAB BLOOD ORDERABLES Final Resul t [facility] [address] [place] [address], documented in this encounter Visit Diagnoses Diagnosis Vitamin D deficiency, unspecified Other viral infections of unspecified site Unsteadiness on feet Muscle weakness (generalized) Acute kidney failure, unspecified ([facility] V24) Acute kidney failure, unspecified Shortness of breath Atherosclerotic heart disease of [place] coronary artery without angina pectoris Essential (primary) hypertension Unspecified essential hypertension Type 2 diabetes mellitus with unspecified complications ([facility] V24, [facility] V28) documented in this encounter Care Teams Cook Ship Relationship Specialty Start Date End Date Ember Guerra MD [address] [place] [address] [address] [place] [address] PCP - General Geriatric Medicine 08/11/24 documented as of this encounter
[2025-06-04 21:36] LABS: MANUAL DIFF FLAG NO
[2025-06-04 21:37] LABS: Hematocrit 42.4 % (42.0-52.0); Hemoglobin 14.2 g/dl (14.0-18.0); Imm Gran Abs Auto 0.03 X10*3/uL (0.00-0.03); Imm Gran Pct Auto 0.3 % (0.0-0.4); Lymphocytes Absolute Auto 1.8 X10*3/uL (1.2-4.9); Mean Corpuscular HGB Conc 33.5 g/dl (31.0-36.0); Mean Corpuscular Hemoglobin 26.6 pg (27.0-33.0); Mean Corpuscular Volume 79.5 fL (80.0-98.0); NRBC Abs Auto 0.000 X10*3/uL (0.0-0.012); NRBC Pct Auto 0.0 /100WBC (0.0-0.2); Platelet Count 249 X10*3/uL (160-400); Red Blood Count 5.33 X10*6/uL (4.60-5.80); White Blood Count 10.8 X10*3/uL (4.8-10.8)
[2025-06-04 21:54] LABS: Alanine Aminotransferase 16 U/L (0-40); Albumin Level 3.8 g/dL (3.5-5.0); Alkaline Phosphatase 104 U/L (39-117); Anion Gap 13 (12-20); Aspartate Amino Transferase 18 U/L (5-37); Blood Urea Nitrogen 27 mg/dL (9-16); Calcium 9.0 mg/dL (8.4-10.2); Carbon Dioxide 25 mmol/L (22-29); Chloride 108 mmol/L (96-108); Creatinine Clr Calc Pharmacy 49.0; Estimated Glomerular Filt Rate 54; Potassium 3.8 mmol/L (3.3-5.1); Sodium 142 mmol/L (135-145); Total Protein 6.8 g/dL (6.5-8.0)
[2025-06-04] MEDS: iohexoL 350 MG/ML 100 ML INFUS..BTL 85 ML IV (22:17)
[2025-06-04 22:22] LABS: B Type Natriuretic Peptide 832 pg/mL (<100)
[2025-06-04 23:17] VITALS: BP 152/89
[2025-06-04] MEDS: Furosemide 40 MG/4 ML VIAL IVPUSH (23:17)
[2025-06-04 23:21] VITALS: BP 152/89; PULSE 97; RESP 20; O2SAT 97
--- NOTE | 2025-06-04 23:43 | MHC.EDTECH ---
Urinal was empty with 550 mlL of urine
[2025-06-05] VITALS (10 sets, daily range): BP systolic 143–177; BP diastolic 69–98; PULSE 66–94; RESP 18–22; TEMP 36.2–36.9; O2SAT 94–99
[2025-06-05 07:01] LABS: Glucose, Whole Blood 144 mg/dL (60-115)
--- NOTE | 2025-06-05 07:20 | MHC.EDTECH ---
pt was a set up with teeth brushing
[2025-06-05 07:34] LABS: Glucose, Whole Blood 153 mg/dL (60-115)
--- NOTE | 2025-06-05 08:10 | MHC.EDTECH ---
pt voided 200ml in the urinal
--- NOTE | 2025-06-05 09:50 | MHC.EDTECH ---
pt ate 100% breakfast
[2025-06-05 11:14] LABS: Resp Syncy Virus RNA Qual PCR NEGATIVE (Negative); SARS COV2 PCR INHOUSE NEGATIVE (Negative)
[2025-06-05 11:16] LABS: Glucose, Whole Blood 206 mg/dL (60-115)
--- NOTE | 2025-06-05 12:27 | MHC.EDTECH ---
pt ate 100% lunch
--- NOTE | 2025-06-05 12:51 | MHC.EDTECH ---
pt was washed up and voided 400ml in the urinal
--- NOTE | 2025-06-05 13:02 | MHC.CM.ED ---
Addendum entered by Bhavana Chappell 06/05/25 13:05: Katlin's telephone number is [phone]. Original Note: Received case management consult overnight. Patient came to the ER due to a chronic leg wound. Work up essentially negative. Physical therapy eval is ordered and pending. Met with patient in regards to discharge planning. Patient is very hard of hearing. Lives with his 90 year old, sig other, Mariann. Mariann can be reached via telephone at [phone]. Patient feels he can safely return home. Patient has a rollator walker. Patient understands d/c plan will be readdressed after physical therapy eval is available. In the past, there have been concerns about patient returning home. Attempted to speak with patient's niece/HCP, Katlin via telephone. Left message requesting return telephone call. Continue to monitor for d/c needs.
--- NOTE | 2025-06-05 14:29 | MHC.CM.ED ---
Physical therapy eval completed. Short term rehab is recommended. Received return telephone call from niece/HCP, Katlin. Katlin feels patient is not safe at home and needs to go to STR. She is worried his leg wounds will not heal. Met with patient to discuss STR. Patient feels he wants to return home to help his sig other, Mariann. T/W explained Katlin was concerned about his legs and being safely home. Patient would like to speak to Mariann and then make a decision about STR. [facility] is [facility]. Patient was just d/c'd from [facility] on 04/07. Continue to monitor for d/c needs.
--- NOTE | 2025-06-05 14:34 | PHA.MEDREC ---
Pharmacy Consult ? Medication Reconciliation Pharmacy has completed the medication reconciliation, utilized list from [facility] currently on hold - left unconfirmed.
--- NOTE | 2025-06-05 14:36 | MHC.EDTECH ---
pt voided 150ml in the urinal
--- NOTE | 2025-06-05 18:43 | PC.NURSE ---
Elopement band activated and given to primary nurse Sadia to place on patient in OF. Camera room was also aware of this patients mobility and tendencies to roam the unit
--- NOTE | 2025-06-05 19:24 | PC.NURSE ---
pt alert and oriented x2-3, knew name, shannon denis, and may 2025 but was off to why he is here and the current situation. He was mildly argumentative and was holding firm to his beliefs about what should be happening. He refused bed alarm and was actively trying to learn how to shut it off. This evening pt became more belligerent attempting to get behind the nurses station and to leave the unit. He was loud and insistent on his goals. [employer] ARCH[employer]ECT aware and PO zyprexa ordered. Elopement band applied with pt stating This F*cking thing won't stop me! . He states he Can do any God damn thing I want at my age when attempting to redirect.
[2025-06-05 19:59] LABS: Glucose, Whole Blood 278 mg/dL (60-115)
--- NOTE | 2025-06-05 20:32 | MHC.CM.ED ---
CM met with patient. Pt is agreeable to STR at this time. 7 referrals made, as patient has [employer] insurance. Is [facility]. Awaiting bed offers.
[2025-06-06] VITALS (8 sets, daily range): BP systolic 149–196; BP diastolic 79–97; PULSE 67–90; RESP 16–20; TEMP 36.1–36.6; O2SAT 93–96
[2025-06-06 07:34] LABS: Glucose, Whole Blood 203 mg/dL (60-115)
--- NOTE | 2025-06-06 07:58 | PC.NURSE ---
Pt agitated, getting dressed and putting on shoes stating he's walking home; pt difficult to redirect, confused; pt reassured that case mgt would be speaking with him about plans; pt hypertensive at 196/97; provider made aware
--- NOTE | 2025-06-06 10:43 | PC.NURSE ---
t resting quietly in room at this time; afebrile; provider at bedside to reassess pt's lower legs for cellulitis; PO ABX ordered; lower legs red with healing chronic wounds to anterior lower legs/no drainage noted
[2025-06-06 10:46] LABS: MANUAL DIFF FLAG NO
[2025-06-06 10:49] LABS: Hematocrit 41.9 % (42.0-52.0); Hemoglobin 13.7 g/dl (14.0-18.0); Imm Gran Abs Auto 0.03 X10*3/uL (0.00-0.03); Imm Gran Pct Auto 0.3 % (0.0-0.4); Lymphocytes Absolute Auto 1.5 X10*3/uL (1.2-4.9); Mean Corpuscular HGB Conc 32.7 g/dl (31.0-36.0); Mean Corpuscular Hemoglobin 26.3 pg (27.0-33.0); Mean Corpuscular Volume 80.6 fL (80.0-98.0); NRBC Abs Auto 0.000 X10*3/uL (0.0-0.012); NRBC Pct Auto 0.0 /100WBC (0.0-0.2); Platelet Count 229 X10*3/uL (160-400); Red Blood Count 5.20 X10*6/uL (4.60-5.80); White Blood Count 9.5 X10*3/uL (4.8-10.8)
[2025-06-06 11:05] LABS: Alanine Aminotransferase 12 U/L (0-40); Albumin Level 3.5 g/dL (3.5-5.0); Alkaline Phosphatase 91 U/L (39-117); Anion Gap 12 (12-20); Aspartate Amino Transferase 15 U/L (5-37); Blood Urea Nitrogen 25 mg/dL (9-16); Calcium 8.5 mg/dL (8.4-10.2); Carbon Dioxide 26 mmol/L (22-29); Chloride 105 mmol/L (96-108); Creatinine Clr Calc Pharmacy 45.7; Estimated Glomerular Filt Rate 50; Potassium 4.2 mmol/L (3.3-5.1); Sodium 139 mmol/L (135-145); Total Protein 6.3 g/dL (6.5-8.0)
[2025-06-06 11:09] LABS: B Type Natriuretic Peptide 514 pg/mL (<100)
[2025-06-06 11:10] LABS: Glucose, Whole Blood 278 mg/dL (60-115)
--- NOTE | 2025-06-06 12:37 | PC.NURSE ---
Provider aware of pt's POC BG and BP; no orders at this time
--- NOTE | 2025-06-06 16:00 | MHC.EDTECH ---
pt voided 300ml
[2025-06-06 16:39] LABS: Glucose, Whole Blood 256 mg/dL (60-115)
--- NOTE | 2025-06-06 16:39 | PC.NURSE ---
Pt's POC BG 256; provider made aware
--- NOTE | 2025-06-06 16:49 | MHC.CM.ED ---
Katlin (HCP) agreeable to [facility]. [facility].
--- NOTE | 2025-06-06 17:21 | MHC.EDTECH ---
pt ate 100% dinner
--- NOTE | 2025-06-06 18:50 | MHC.EDTECH ---
pt voided 300ml
--- NOTE | 2025-06-06 20:03 | MHC.EDTECH ---
pt voided 150ml in the urinal
[2025-06-06 21:14] LABS: Glucose, Whole Blood 358 mg/dL (60-115)
[2025-06-07 04:00] VITALS: BP 158/87; PULSE 86; RESP 20; TEMP 36.4; O2SAT 95
--- NOTE | 2025-06-07 06:29 | PC.NURSE ---
Assumed care of pt at 1900. Pt confused, alert to self only. Blood glucose at bedtime 358, ED CM Provider notified, see new order for long acting insulin in am. Able to voice needs. Ambulated outside room 3x this shift. Slept well. Pt provided a snack during shift. All safety measures in place. Call pruitt in reach.?
[2025-06-07 09:24] VITALS: BP 143/64; PULSE 63; RESP 16; TEMP 36.4; O2SAT 95
[2025-06-07 09:31] LABS: Glucose, Whole Blood 282 mg/dL (60-115)
[2025-06-07] MEDS: Insulin Glargine,Hum.rec.anlog 100 UNIT/ML 10 ML VIAL 44 UNIT SUBCUT (10:06)
[2025-06-07 12:21] LABS: Glucose, Whole Blood 282 mg/dL (60-115)
--- NOTE | 2025-06-07 14:22 | MHC.CM.ED ---
Patient remains in ER overflow. Waiting for insurance auth from the [place] for [facility]. Spoke with Mae from [place]. She is working on auth now. Continue to monitor for d/c needs.
[2025-06-07 16:39] LABS: Glucose, Whole Blood 249 mg/dL (60-115)
--- NOTE | 2025-06-07 20:36 | PC.NURSE ---
pt alert and oriented to self, [facility], may and situation. He is off to year. He is pleasant at times but often argumentative. He refused his Lasix this am, MANAGER WINTER aware. He states we all have to from something and I would rather not spend my whole life peeing He refused bed alarm and taught himself how to turn it off. He ambulates in negron with rollator and steady gait. He is visible to the unit camera's while ambulating. Pt attempting to leave unit at times requiring redirection. At one point he triggered the STAT alarm from the exit camera and stated. I did the evening check of the alarms and they are working he has fall band/socks in place and has frequent reminders of safety precautions.
[2025-06-07 20:49] VITALS: BP 165/83; PULSE 82; RESP 16; TEMP 37.1; O2SAT 94
--- NOTE | 2025-06-07 22:17 | PC.NURSE ---
RN auscultated lungs, increased wheezing. Pt denies shortness of breath. ED provider Christine notified.
[2025-06-07 22:29] LABS: Glucose, Whole Blood 263 mg/dL (60-115)
[2025-06-08] VITALS (7 sets, daily range): BP systolic 0–150; BP diastolic 0–80; PULSE 0–86; RESP 16–18; TEMP -17.7–36.7; O2SAT 92–94
[2025-06-08] MEDS: Albuterol/Iprat 2.5/0.5MG 3 ML AMPUL.NEB INHALE (00:40)
--- NOTE | 2025-06-08 06:11 | PC.NURSE ---
pt voided 175 ml clear yellow urine in urinal
--- NOTE | 2025-06-08 07:19 | PC.NURSE ---
Assumed care of pt at 1900. Pt confused, alert to self only. Pt reports shortness of breath at the beginning of shift. Pt had refused his lasix during the day. Is now agreeable to take it. ED provider ordered a one time dose of lasix 40mg?PO. Med given per NOV. Able to voice needs. Lungs auscultated, wheezing throughout. Provider notified, CXR ordered. RT called and pt was given neb tx. Slept well. Pt provided a snack during shift. Bed alarm on, bed in low, locked position. Call pruitt in reach.?
[2025-06-08 07:31] LABS: Glucose, Whole Blood 211 mg/dL (60-115)
[2025-06-08] MEDS: Insulin Glargine,Hum.rec.anlog 100 UNIT/ML 10 ML VIAL 44 UNIT SUBCUT (08:21)
--- NOTE | 2025-06-08 11:28 | MHC.CM.ED ---
Insurance auth has been obtained for [facility]age. Alert BLS booked for 1130am. Med [facility] with chart. Patient, Krissy RN and Inés CORMIER aware. Attempted to notify niece/HCP, Katlin via telephone at [phone]. Left voicemail with d/c info. Attempted to notify sig other, Mariann, via telephone at [phone]. Left voicmeail with d/c info. Continue to monitor for d/c needs.
== END 2025-06-08 11:49 ==
PROVIDERS: Physician Assistant; Physician Assistant Medical; Emergency Provider Student in an Organized Health Care Education/Training Program; PCP Physician Assistant; Referring Provider Student in an Organized Health Care Education/Training Program
DX: L03.115 Cellulitis of right lower limb (principal); E11.22 Type 2 diabetes mellitus with diabetic chronic kidney disease; N18.9 Chronic kidney disease, unspecified; J44.9 Chronic obstructive pulmonary disease, unspecified; I48.0 Paroxysmal atrial fibrillation; Z03.818 Encounter for observation for suspected exposure to other biological agents ruled out
CPT/HCPCS: 36415; 71045; 71046; 73701; 80053; 82947; 83605; 83880; 85025; 87040; 87637; 93005; 94640; 96374; 96375; 97161; 99285; J0696; J1938; Q9967

== ENCOUNTER → 2025-06-04 19:54 | Outpatient (BNV) | payer OTHER, SELFPAY | PROVIDERS: Emergency Provider Student in an Organized Health Care Education/Training Program; PCP Physician Assistant; Visit Provider Internal Medicine Cardiovascular Disease | DX: I45.10 Unspecified right bundle-branch block (principal); I25.2 Old myocardial infarction; I48.92 Unspecified atrial flutter | CPT/HCPCS: 93010 ==

== ENCOUNTER → 2025-06-04 21:53 | Outpatient (BNV) | payer OTHER, SELFPAY | PROVIDERS: Emergency Provider Student in an Organized Health Care Education/Training Program; PCP Physician Assistant; Visit Provider Student in an Organized Health Care Education/Training Program | DX: R22.41 Localized swelling, mass and lump, right lower limb (principal); R91.8 Other nonspecific abnormal finding of lung field | CPT/HCPCS: 71046; 73701 ==

== ENCOUNTER → 2025-06-07 22:22 | Outpatient (BNV) | payer OTHER, SELFPAY | PROVIDERS: Emergency Provider Student in an Organized Health Care Education/Training Program; PCP Physician Assistant; Visit Provider Student in an Organized Health Care Education/Training Program | DX: R06.02 Shortness of breath (principal) | CPT/HCPCS: 71045 ==

== ENCOUNTER 2025-08-28 10:34 | Inpatient (IN) | payer OTHER, MEDICARE, SELFPAY ==
--- NOTE | ~2025-08-28 | XR_ITS ---
EXAMINATION: XR FOOT, LUIS 3V CLINICAL INFORMATION: overlying cellulitis COMPARISON: Left foot radiographs 01/07/2022. TECHNIQUE: AP, lateral, and oblique views of each foot were obtained. FINDINGS: RIGHT FOOT: No fracture, dislocation, or suspicious bone lesion. There is normal alignment. 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 Joint spaces otherwise grossly preserved. Normal plantar arch. Small to moderate-sized plantar and dorsal calcaneal spur is present. Mild diffuse soft tissue swelling is present. There are diffuse vascular calcifications. LEFT FOOT: No fracture, dislocation, or suspicious bone lesion. There is normal alignment. There has been resection of the third toe at the PIP joint level. 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 Joint spaces otherwise grossly preserved. Normal plantar arch. Tiny plantar and dorsal calcaneal spurs. Mild diffuse soft tissue swelling is present. There are diffuse vascular calcifications. XR/XR Foot Luis 3V IMPRESSION: 1. No definite radiographic evidence of osteomyelitis in either foot. 2. Diffuse mild soft tissue swelling bilaterally. 3. 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 Electronically signed by: Jerod He MD 08/28/2025 01:38 PM EST
--- NOTE | ~2025-08-28 | CT_ITS ---
CLINICAL HISTORY: vomiting,pain CT abdomen and pelvis without contrast Comparison: CT/SR - CT ABDOMEN PELVIS WITHOUT IV CONTRAST - 08/06/24 10:20 EST Findings: LIMITED CHEST: Small bilateral pleural effusions with adjacent atelectasis. LIVER: No focal liver lesion. BILIARY: Gallbladder is not visualized. PANCREAS: No mass or ductal dilatation. SPLEEN: No splenomegaly. KIDNEYS: No hydronephrosis or radiopaque stone. Small hypoattenuating lesions, too small to characterize however may represent cysts. Some of these are hyperdense may represent hemorrhagic cyst. ADRENALS: No nodule. VASCULAR: No aneurysm. RETROPERITONEUM: No lymphadenopathy or mass. BOWEL/MESENTERY: No evidence of obstruction. No free fluid or air. Small hiatal hernia. Normal appendix. Liquid stool in the small bowel and proximal colon. Colonic diverticulosis. ABDOMINAL WALL: No mass or significant abnormality. URINARY BLADDER: No focal wall thickening. PELVIC NODES: No pelvic lymphadenopathy. PELVIC ORGANS: Prostatomegaly. BONES: No acute fracture. Degenerative changes of the spine. OTHER: Negative. IMPRESSION: Liquid stool throughout the small bowel and proximal colon, may represent enteritis/enterocolitis. Normal appendix. Colonic diverticulosis without CT evidence of acute diverticulitis. Small bilateral pleural effusions. This document has been electronically signed by: Constance Manzanares MD on 09/02/2025 20:15:38
--- NOTE | ~2025-08-28 | US_ITS ---
CLINICAL HISTORY: r o DVT Venous duplex ultrasound bilateral lower extremity Comparison: CT/SR - CT LOWER LEG RT W IV CON - 06/04/25 22:12 EDT Findings: The visualized deep veins of the bilateral lower extremities appear patent on color/spectral Doppler imaging. Echogenic material identified within the lumen of the right popliteal vein with posterior acoustic shadowing, suggesting calcification. The right popliteal vein is fully compressible. No popliteal cyst. IMPRESSION: 1. Negative for acute bilateral lower extremity deep vein thrombosis. 2 Echogenic, shadowing area identified within the right popliteal vein, suggesting nonspecific calcification. This calcification was visualized at the peripheral aspect of the right popliteal vein on the comparison exam. The right popliteal vein is fully compressible. This document has been electronically signed by: Chandler Bautista MD on 08/30/2025 04:51:29
--- NOTE | ~2025-08-28 | XR_ITS ---
EXAMINATION: XR CHEST CLINICAL INFORMATION: AMS COMPARISON: June 07, 2025 TECHNIQUE: AP upright position. Lateral projection. FINDINGS: Pulmonary reticular nodular pattern. Prominence of the interstitial markings. Blunting of the posterior costophrenic angles on the lateral projection. No gross pneumothorax. No gross consolidation. Sternal wires. Vascular clips in the anterior mediastinum. Cardiomediastinal silhouette size is normal. Calcified plaque thoracic aorta. Multilevel thoracic spondylosis. Degenerative changes in the left shoulder. XR/XR chest 2V IMPRESSION: Chronic interstitial lung disease with likely superimposed interstitial lung edema and left-sided small volume pleural effusion. Superimposed the acute inflammatory versus infectious process cannot be excluded. Electronically signed by: Jovanny Horton MD 08/28/2025 01:15 PM [facility]
--- NOTE | ~2025-08-28 | XR_ITS ---
EXAMINATION: X-ray bilateral tibia and fibula CLINICAL INFORMATION: Overlying cellulitis, diabetes COMPARISON: None TECHNIQUE: Right tibia-fibula 2 views. Left tibia-fibula 2 views. FINDINGS: Right tibia-fibula: Bone mineralization is normal. No acute fracture or malalignment. No erosive or destructive changes identified. Subtle density along the lateral cortex of the mid fibular diaphysis, is an equivocal finding, could represent subtle periosteal reaction. Subchondral lucency in the medial talar dome, could reflect degenerative changes, osteochondral lesion. Vascular calcifications. No soft tissue emphysema is seen. Left tibia and fibula: Bone mineralization is normal. No acute fracture or malalignment. No erosive or destructive changes identified. No suspicious bony lesions. Knee and ankle joint articulation is maintained. No abnormal soft tissue calcification. Vascular calcifications. No soft tissue emphysema is seen. XR/XR Tibia Fibula Ulis 2V IMPRESSION: Right tibia and fibula: 1. Subtle hazy density along the lateral cortex of the mid fibular diaphysis, is an equivocal finding, could represent subtle periosteal reaction. If there is clinical concern for osteomyelitis, recommend MRI without and with contrast. 2. Medial dome subchondral seen could reflect degenerative changes, osteochondral lesion. Left tibia and fibula: 1. No radiographic evidence of acute osseous findings 2. There is clinical concern for radiographically occult osteomyelitis, MRI without and with contrast can be obtained. Electronically signed by: Lee Aviles MD 08/28/2025 01:24 PM EST
--- NOTE | ~2025-08-28 | MR_ITS ---
EXAM: MRI right foot without contrast TECHNIQUE: Multiplanar multisequence MR imaging was performed through the right foot without contrast. Exam was ordered with IV contrast, but the patient declined. INDICATION: Cellulitis, Evaluation for osteomyelitis PRIOR: X-ray from 4 days ago FINDINGS: There is mild to moderate motion artifact. Lisfranc ligament: Intact Soft tissues/Castanon's Neuroma: No definite Castanon's neuroma. There is moderate to severe fatty streaking of foot musculature. There is edema in the deep and plantar superficial soft tissues of the foot. There is incompletely imaged loculated thin-walled fluid collection deep to the tendons in the plantar foot, and superficial to the plantar margin of cuboid and navicular bone articulation. Metatarsophalangeal (MTP) joint and sesamoids of the great toe: Mild degenerative marrow signal is present in the sesamoids, medial greater than lateral. There is fissuring of the central fibrocartilage of the lateral plate complex. Lesser MTP joints & Plantar plates: Plantar plates and joint capsule structures are intact. Bones/Marrow: Bone marrow signal is physiologic. MR/MR foot RT wo con IMPRESSION: This study is mild to moderately degraded by motion artifacts. No definite evidence of osteomyelitis was detected. There is deep and superficial soft tissue edema, more pronounced in the plantar midfoot. Electronically signed by: Nabor Lerner MD 09/01/2025 01:41 PM EST
--- NOTE | ~2025-08-28 | MR_ITS ---
EXAM: MR Tibia/fib Rt Wo Contrast TECHNIQUE: Multiplanar - multisequence imaging through a right lower extremity was performed without contrast. Examination was ordered without and with IV contrast. Patient declined IV contrast. INDICATION: Swelling, smooth periosteal new bone formation along the lateral middle third diaphysis of the right fibula evaluate for osteomyelitis PRIOR: X-ray from 4 days ago FINDINGS: Study is moderate to severely limited due to motion There is moderate fatty streaking of lower leg musculature. There is mild diffuse somewhat patchy edema throughout the lower leg musculature. No gross marrow replacing lesions are evident. MR/MR Tibia/Fib RT wo Contrast IMPRESSION: Nonspecific mild diffuse patchy muscle edema is evident in the right lower leg. The study is of limited diagnostic value due to motion. No definite sign of osteomyelitis. Electronically signed by: Nabor Lerner MD 09/01/2025 01:31 PM EST
[2025-08-28 10:46] VITALS: BP 162/73; PULSE 72; O2SAT 96
[2025-08-28 11:11] VITALS: BP 142/71; PULSE 78; RESP 16; TEMP 36.9; O2SAT 94; BMI 31.8
--- NOTE | 2025-08-28 11:38 | ED_ITS ---
HPI - General Adult General Chief complaint: General Medical Stated complaint: LIZ CALF WOUNDS/ONGOING ISSUE,DM/BS 375 Time Seen by Provider: 08/28/25 11:15 Source: patient and EMS Mode of arrival: EMS Limitations: no limitations History of Present Illness ED Provider: AIDA FRANKLIN PA-C HPI narrative: 85 year old male with pmhx significant for T2DM, CKD, COPD, and paroxysmal AFib on thinners presents to the ED today for evaluation of lower leg wounds. Per EMS, they were contacted by healthcare proxy after she is soft photos of patient's legs. Patient has chronic lower extremity wounds, he follows with wound care once a week. It appears that his wounds are worsening. He reports pain with associated foul-smelling discharge. Denies fever/chills. Other than his leg wounds, he denies any other complaints/ concerns. Denies fever, chills, cough, chest pain, N/V, urinary symptoms. Related Data Home Medications ?Medication ?Instructions ?Recorded ?Confirmed amlodipine 10 mg tablet 10 mg PO DAILY 07/04/2405/22 clopidogrel 75 mg tablet 75 mg PO DAILY 07/04/2405/22 insulin glargine-yfgn 100 unit/mL 44 unit subcut DAILY 07/04/24 03/16/25 (3 mL) subcutaneous pen losartan 100 mg tablet 100 mg PO DAILY 07/04/2405/22 sennosides 8.6 mg tablet (senna) 8.6 mg PO BEDTIME PRN Constipation 07/04/24 06/05/25 cyanocobalamin (vitamin B-12) 1,000 mcg PO DAILY 03/1606/05/25 1,000 mcg tablet Previous Rx's ?Medication ?Instructions ?Recorded furosemide 40 mg tablet 40 mg PO DAILY #30 tabs 11/27 04/21 cephalexin 500 mg tablet 500 mg PO QID 8 days #32 tab s 06/08/25 Allergies Allergy/AdvReac Type Severity Reaction Status Date / Time hydrochlorothiazide Allergy Unknown Unknown Verified 08/28/25 11:16 Review of Systems 2 Review of Systems: Yes all other systems are reviewed and are negative PMFSH Past Medical History Attestation statement: The following information was validated with the patient. Source: old records reviewed and nursing notes reviewed Medical History Type 2 diabetes mellitus without complications Paroxysmal A-fib Congestive heart failure CKD (chronic kidney disease) Type 2 diabetes mellitus Coronary artery disease Surgical History Hx of CABG Social History Social History Household Members: Spouse Housing: House Do you presently have visiting nurse or other home services: Yes ([facility]) Alcohol intake: unknown Patient Tobacco Use Status: Former Tobacco user e-Cigarette/Vaping Use: Former Use Advance Directives: Yes Advance Directives on File: Yes Advance Directives Date on File: 07/07/24 service: Yes Physical Exam ED Vital Signs: Vital Signs - 24 hr 08/28/25 11:11 08/28/25 14:00 Temperature 98.4 F 97.6 F Pulse Rate 78 80 Respiratory Rate 16 17 Blood Pressure 142/71 H 140/87 H Pulse Oximetry 94 93 Oxygen Delivery Method Room Air Room Air BMI result Body Mass Index 31.8 hypertensive, afebrile General: Well appearing, in no acute distress. Skin: Warm, dry, intact. No rashes or lesions. Head: Normocephalic, atraumatic. EENT: Hearing is intact b/l. Conjunctiva clear. PERRLA. EOM intact. Moist mucous membranes.? Neck: Supple without LAD Cardiac: Chest wall symmetric. RRR Lungs: Normal respiratory effort without accessory muscle use. CTA bilaterally Abdomen: Soft, non-tender, non-distended. No rebound tenderness or guarding. Positive BS x4. Back: No midline spinous or paraspinal tenderness. No step off deformity. Ext:+ see photos of bilateral lower extremities below. Neuro: AOx3. Normal speech Psych: Appropriate mood and affect. Responds appropriately to questions. Course Course Course Narrative: 1152 -- attempted to contact HCP Katlin. no answer, LVM for call back. 1338 -- CBC without leuckocytosis or left shift. h&h stable. chemistry without acute electrolyte abnormality requiring intervention. renal function around baseline. random glucose 332 - insulin ordered. no anion gap. lactic wnl at 1.3. blood cultures pending. CRP elevated to 4.50, ESR WNL. Urinalysis shows trace urine bacteria, negative nitrites, leukocyte esterase, 0-5 WBCs. Will await urine culture for treatment. Chest x-ray showing chronic lung disease with possible superimposed on lung edema and left-sided pleural effusion. NT pro BNP elevated to 5215.6. > x-ray right tib fib showing subtle hazy density along the lateral cortex of the mid fibular diaphysis, possibly representing periosteal reaction. Recommending MRI if clinical concern for osteomyelitis. > medicated with Zosyn, vancomycin, Tylenol Discussed case with hospitalist AEROLOGIST - patient to be admitted to medicine for management of venous wound/cellulitis with question osteomyelitis. Could benefit from wound care consult and possibly MRI for confirmation. Medications Administered Generic Name Dose Route Start Last Admin Trade Name Freq PRN Reason Stop Dose Admin Heparin Sodium (Porcine) 5,000 unit 08/28/25 16:00 08/28/25 17:29 Heparin Sodium,Porcine 5,000 Unit/Ml Vial SUBCUT 5,000 unit Q12H TRAMAINE Administration Sodium Chloride 3 ml 08/28/25 16:00 08/28/25 17:31 0.9 % Sodium Chloride Flush 3 Ml Syringe IVFLUSH 3 ml QSHIFT TRAMAINE Administration Discontinued Medications Generic Name Dose Route Start Last Admin Trade Name Freq PRN Reason Stop Dose Admin Piperacillin Sod/Tazobactam 50 mls @ 100 mls/hr 08/28/25 11:46 08/28/25 12:55 Sod 3.375 gm/ Sodium Chloride IV 08/28/25 12:15 Infused ONCE ONE Infusion Acetaminophen 1,000 mg in 100 mls @ 400 mls/hr 08/28/25 11:49 08/28/25 13:27 Ofirmev IV 08/28/25 12:03 Infused ONCE ONE Infusion Vancomycin HCl 2,000 mg in 500 mls @ 250 mls/hr 08/28/25 13:30 08/28/25 16:36 Vancomycin/Ns IV 08/28/25 15:29 Infused ONCE ONE Infusion Insulin Human Regular 10 unit 08/28/25 13:39 08/28/25 13:58 Insulin Regular, Human 100 Unit/Ml 10 Ml Vial IVPUSH 08/28/25 13:40 10 unit ONCE ONE Administration Medical Decision Making Medical Decision Making MDM Narrative: 85 year old male with pmhx significant for T2DM, CKD, COPD, and paroxysmal AFib on thinners presents to the ED today for evaluation of lower leg wounds. Patient is hypertensive, vitals are otherwise WNL. He is afebrile, well- appearing and in no acute distress. Please refer to above physical exam portion for findings. Differential diagnosis includes chronic venous stasis wounds, cellulitis, osteomyelitis. Unlikely neurovascular compromise, threat to limb, DVT. Plan for labs, imaging, UA, pain control, re-evaluation. Differential Diagnosis Differential Diagnoses: The differential diagnosis associated with the presentation includes as above. Admission/Observation Consideration of admission/observation: Escalation of care including admission/observation considered Patient admitted to medicine for management of venous foot wounds/cellulitis Consult Healthcare Provider Management of the patient was discussed with: Hospitalist (gibson aaron) Lab Data MDM Lab Attestation statement: I reviewed the patient's lab results. as above. 08/28/25 11:55 08/28/25 11:55 Labs: Lab Results 08/28/25 08/28/25 08/28/25 Range/Units 11:55 12:11 14:00 WBC 9.8 (4.8-10.8) X10*3/uL RBC 5.49 (4.60-5.80) X10*6/uL Hgb 13.9 L (14.0-18.0) g/dl Hct 43.0 (42.0-52.0) % MCV 78.3 L (80.0-98.0) fL MCH 25.3 L (27.0-33.0) pg MCHC 32.3 (31.0-36.0) g/dl RDW 14.2 (11.0-16.0) % Plt Count 264 (160-400) X10*3/uL MPV 9.9 (9.4-12.4) fL Immature Gran % (Auto) 0.4 (0.0-0.4) % Neut % (Auto) 68.3 (45-73) % Lymph % (Auto) 11.7 L (20-40) % Kershaw % (Auto) 7.8 (2-11) % Eos % (Auto) 10.8 H (0-4) % Baso % (Auto) 1.0 (0-2) % Lymph # (Auto) 1.1 L (1.2-4.9) X10*3/uL Kershaw # (Auto) 0.8 (0.1-1.2) X10*3/uL Eos # (Auto) 1.1 H (0.0-0.4) X10*3/uL Baso # (Auto) 0.1 (0.0-0.2) X10*3/uL Abs Immat Gran (auto) 0.04 H (0.00-0.03) X10*3/uL Absolute Neuts (auto) 6.7 (2.0-8.3) x10*3/uL Absolute Nucleated RBC 0.000 (0.0-0.012) X10*3/uL Nucleated RBC % (auto) 0.0 (0.0-0.2) /100WBC ESR 10 (0-15) MM/HR Sodium 136 (135-145) mmol/L Potassium 4.2 (3.3-5.1) mmol/L Chloride 105 (96-108) mmol/L Carbon Dioxide 23 (22-29) mmol/L Anion Gap 12 (12-20) BUN 23 H (9-16) mg/dL Creatinine 1.21 (0.5-1.4) mg/dL Estim Creat Clear Calc 52.3 Estimated GFR 57 POC Glucose 301 H (60-115) mg/dL Random Glucose 332 H (60-115) mg/dL Lactic Acid 1.3 (0.5-2.0) mmol/L Calcium 8.8 (8.4-10.2) mg/dL Magnesium 1.7 (1.6-2.6) mg/dL Total Bilirubin 0.6 (0.0-1.0) mg/dL AST 16 (5-37) U/L ALT 18 (0-40) U/L Alkaline Phosphatase 123 H (39-117) U/L C-Reactive Protein 4.50 H (< or = 0.50) mg/dL Total Protein 6.4 L (6.5-8.0) g/dL Albumin 3.5 (3.5-5.0) g/dL Urine Color Yellow Urine Appearance Clear Urine pH 5.5 (5.0-9.0) Ur Specific Roscoe 1.020 (1.005-1.025) Urine Protein 300 (3+) H (Neg-Trace) mg/dL Urine Glucose (UA) >=1000 H (Negative) mg/dL Urine Ketones Negative (Negative) mg/dL Urine Blood Trace H (Negative) Urine Nitrite Negative (Negative) Ur Leukocyte Esterase Negative (Negative) Urine RBC 0-2 (0-2) /HPF Urine WBC 0-5 (0-5) /HPF Ur Squamous Epith Cells 0-2 (0-2) /HPF Urine Bacteria Trace (None Seen) Hyaline Casts 0-2 (0-2) /LPF Independent Interpretation I performed an independent interpretation of an: Plain X-Ray Radiology Impression Discussion of test interpretation with radiology: I have reviewed the radiologist's reading. Radiologist Impression: Date of Service: 08/28/25 Procedure(s): XR chest 2V Accession Number(s): [id number] cc: Aida Franklin; Forrest Marin~ Reason for Exam: AMS EXAMINATION: XR CHEST CLINICAL INFORMATION: AMS COMPARISON: June 07, 2025 TECHNIQUE: AP upright position. Lateral projection. FINDINGS: Pulmonary reticular nodular pattern. Prominence of the interstitial markings. Blunting of the posterior costophrenic angles on the lateral projection. No gross pneumothorax. No gross consolidation. Sternal wires. Vascular clips in the anterior mediastinum. Cardiomediastinal silhouette size is normal. Calcified plaque thoracic aorta. Multilevel thoracic spondylosis. Degenerative changes in the left shoulder. XR/XR chest 2V IMPRESSION: Chronic interstitial lung disease with likely superimposed interstitial lung edema and left-sided small volume pleural effusion. Superimposed the acute inflammatory versus infectious process cannot be excluded. Electronically signed by: Jovanny Horton MD 08/28/2025 01:15 PM [facility] Procedure(s): XR Tibia Fibula Liz 2V Accession Number(s): [id number] cc: Aida Franklin; Forrest Marin~ Reason for Exam: overlying celluliis, diabetic EXAMINATION: X-ray bilateral tibia and fibula CLINICAL INFORMATION: Overlying cellulitis, diabetes COMPARISON: None TECHNIQUE: Right tibia-fibula 2 views. Left tibia-fibula 2 views. FINDINGS: Right tibia-fibula: Bone mineralization is normal. No acute fracture or malalignment. No erosive or destructive changes identified. Subtle density along the lateral cortex of the mid fibular diaphysis, is an equivocal finding, could represent subtle periosteal reaction. Subchondral lucency in the medial talar dome, could reflect degenerative changes, osteochondral lesion. Vascular calcifications. No soft tissue emphysema is seen. Left tibia and fibula: Bone mineralization is normal. No acute fracture or malalignment. No erosive or destructive changes identified. No suspicious bony lesions. Knee and ankle joint articulation is maintained. No abnormal soft tissue calcification. Vascular calcifications. No soft tissue emphysema is seen. XR/XR Tibia Fibula Liz 2V IMPRESSION: Right tibia and fibula: 1. Subtle hazy density along the lateral cortex of the mid fibular diaphysis, is an equivocal finding, could represent subtle periosteal reaction. If there is clinical concern for osteomyelitis, recommend MRI without and with contrast. 2. Medial dome subchondral seen could reflect degenerative changes, osteochondral lesion. Left tibia and fibula: 1. No radiographic evidence of acute osseous findings 2. There is clinical concern for radiographically occult osteomyelitis, MRI without and with contrast can be obtained. Electronically signed by: Lee Aviles MD 08/28/2025 01:24 PM [facility] Procedure(s): XR Foot Lzi 3V Accession Number(s): [id number] cc: Aida Franklin; Forrest Marin~ Reason for Exam: overlying cellulitis EXAMINATION: XR FOOT, LIZ 3V CLINICAL INFORMATION: overlying cellulitis COMPARISON: Left foot radiographs 01/07/2022. TECHNIQUE: AP, lateral, and oblique views of each foot were obtained. FINDINGS: RIGHT FOOT: No fracture, dislocation, or suspicious bone lesion. There is normal alignment. 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 Joint spaces otherwise grossly preserved. Normal plantar arch. Small to moderate-sized plantar and dorsal calcaneal spur is present. Mild diffuse soft tissue swelling is present. There are diffuse vascular calcifications. LEFT FOOT: No fracture, dislocation, or suspicious bone lesion. There is normal alignment. There has been resection of the third toe at the PIP joint level. 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 Joint spaces otherwise grossly preserved. Normal plantar arch. Tiny plantar and dorsal calcaneal spurs. Mild diffuse soft tissue swelling is present. There are diffuse vascular calcifications. XR/XR Foot Liz 3V IMPRESSION: 1. No definite radiographic evidence of osteomyelitis in either foot. 2. Diffuse mild soft tissue swelling bilaterally. 3. 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 Electronically signed by: Jerod He MD 08/28/2025 01:38 PM [facility] Independent Historian Clinical information obtained from an independent historian. History obtained from or confirmed by: EMS External Record Review External record reviewed: Inpatient record Prescription Management I considered prescription management with: Pain Medication and Antibiotic Chronic Conditions Patient?s care impacted by: Diabetes Social Determinants Patient?s care significantly limited by Social Determinants of Health including: Other Social Determinant of Health Critical Care Time Critical Care Time Critical Care Time: Yes Total Critical Care Time: 40 Attestation: Critical care time in the amount of 40 minutes has been provided to the patient in terms of direct patient care, frequent reevaluation, consultation with hospitalist, review and interpretation of medical data and results, and management of potentially life-threatening conditions. This is all outside of any medical procedures. Discharge Plan Discharge Clinical Impression: Cellulitis, CHF (congestive heart failure) Patient Disposition: Admitted As Inpatient
[2025-08-28 12:04] LABS: MANUAL DIFF FLAG NO
[2025-08-28 12:12] LABS: Hematocrit 43.0 % (42.0-52.0); Hemoglobin 13.9 g/dl (14.0-18.0); Imm Gran Abs Auto 0.04 X10*3/uL (0.00-0.03); Imm Gran Pct Auto 0.4 % (0.0-0.4); Lymphocytes Absolute Auto 1.1 X10*3/uL (1.2-4.9); Mean Corpuscular HGB Conc 32.3 g/dl (31.0-36.0); Mean Corpuscular Hemoglobin 25.3 pg (27.0-33.0); Mean Corpuscular Volume 78.3 fL (80.0-98.0); NRBC Abs Auto 0.000 X10*3/uL (0.0-0.012); NRBC Pct Auto 0.0 /100WBC (0.0-0.2); Platelet Count 264 X10*3/uL (160-400); Red Blood Count 5.49 X10*6/uL (4.60-5.80); White Blood Count 9.8 X10*3/uL (4.8-10.8)
[2025-08-28 12:19] LABS: Appearance Urine Clear; Glucose Urine UA >=1000 mg/dL (Negative); PH 5.5 (5.0-9.0); Specific Gravity - Urine 1.020 (1.005-1.025); UMIC TRIGGER UACC YES
[2025-08-28 12:20] LABS: Alanine Aminotransferase 18 U/L (0-40); Albumin Level 3.5 g/dL (3.5-5.0); Alkaline Phosphatase 123 U/L (39-117); Anion Gap 12 (12-20); Aspartate Amino Transferase 16 U/L (5-37); Blood Urea Nitrogen 23 mg/dL (9-16); Calcium 8.8 mg/dL (8.4-10.2); Carbon Dioxide 23 mmol/L (22-29); Chloride 105 mmol/L (96-108); Creatinine Clr Calc Pharmacy 52.3; Estimated Glomerular Filt Rate 57; Magnesium 1.7 mg/dL (1.6-2.6); Potassium 4.2 mmol/L (3.3-5.1); Sodium 136 mmol/L (135-145); Total Protein 6.4 g/dL (6.5-8.0)
[2025-08-28 12:57] LABS: Erythrocyte Sedimentation Rate 10 MM/HR (0-15)
[2025-08-28] MEDS: vancomycin/NS 2,000 MG/500 ML PLAST..BAG 250 MG IV (13:58)
[2025-08-28 14:00] VITALS: BP 140/87; PULSE 80; RESP 17; TEMP 36.4; O2SAT 93
[2025-08-28 14:03] LABS: Glucose, Whole Blood 301 mg/dL (60-115)
--- NOTE | 2025-08-28 14:27 | PM.IMHP ---
History of Present Illness Date of Service: 08/28/25 Chief Complaint: leg infection 85-year-old male with a history of lower extremity wounds presents to the ER with worsening appearance of wounds. He reports foul-smelling discharge and reports that he is the 1 that does his wound care but [facility]. He denied any fever, chills, nausea, vomiting, diarrhea. No fever leukocytosis noted. Bilateral foot x-ray done. Right foot showing no fracture dislocation or bone lesion. Left foot showed the same. Right tibiofibula x-ray showed equivocal findings of possible osteoarthritis. Left tibia and fibula x-rays showing no definitive signs for osteomyelitis but recommend MRI. Patient is started on IV vancomycin. He was also noted to have uncontrolled blood sugars. He will be admitted for cellulitis and uncontrolled diabetes mellitus. Review of Systems Review of Systems: Denies any recent fever chills or decrease in appetite respiratory denies any shortness of breath or cough cardiovascular denied chest pain gastrointestinal denies any dysphagia abdominal pain nausea vomiting or diarrhea genitourinary denies any dysuria frequency or hematuria musculoskeletal denies any joint pain or swelling neuropsych denies any weakness or seizures all other systems reviewed are negative [facility] Medical History Type 2 diabetes mellitus without complications Paroxysmal A-fib Congestive heart failure CKD (chronic kidney disease) Type 2 diabetes mellitus Coronary artery disease Surgical History Hx of CABG Social History Household Members: Spouse Housing: House Do you presently have visiting nurse or other home services: Yes ([facility]) Alcohol intake: unknown Patient Tobacco Use Status: Former Tobacco user e-Cigarette/Vaping Use: Former Use Advance Directives: Yes Advance Directives on File: Yes Advance Directives Date on File: 07/07/24 service: Yes Meds Allergies Allergy/AdvReac Type Severity Reaction Status Date / Time hydrochlorothiazide Allergy Unknown Unknown Verified 08/28/25 11:16 Active Medications: Current Medications Vancomycin HCl (Vancomycin/Ns) 2,000 mg in 500 mls @ 250 mls/hr IV ONCE ONE Stop: 08/28/25 15:29 Last Admin: 08/28/25 13:58 Dose: 250 mls/hr Home Medications ?Medication ?Instructions ?Recorded ?Confirmed ?Last Taken ?Type amlodipine 10 mg tablet 10 mg PO DAILY 07/04/24 06/05/25 12/23/24 08:07 History clopidogrel 75 mg tablet 75 mg PO DAILY 07/04/24 06/05/25 12/23/24 09:00 History insulin glargine-yfgn 100 unit/mL 44 unit subcut DAILY 07/04/24 03/16/25 12/23/24 08:08 History (3 mL) subcutaneous pen losartan 100 mg tablet 100 mg PO DAILY 07/04/24 06/05/25 12/23/24 08:07 History sennosides 8.6 mg tablet (senna) 8.6 mg PO BEDTIME PRN Constipation 07/04/24 06/05/25 12/22/24 20:00 History cyanocobalamin (vitamin B-12) 1,000 mcg PO DAILY 03/16/25 06/05/25 Unknown History 1,000 mcg tablet Physical Exam Vital Signs and Narrative: Vital Signs: Last Vital Signs Temp 97.6 F 08/28/25 14:00 Pulse 80 08/28/25 14:00 Resp 17 08/28/25 14:00 BP 140/87 H 08/28/25 14:00 Pulse Ox 93 08/28/25 14:00 O2 Del Method Room Air 08/28/25 14:00 BMI result Body Mass Index 31.8 Appearing in no acute distress head is normocephalic atraumatic eyes pupils are PERRLA sclera is anicteric mouth throat mucous membranes are intact and moist neck is supple no lymphadenopathy, no JVD noted lung sounds are clear to auscultation heart regular rate rhythm, clear S1, S2 positive bowel sounds, abdomen is soft, nontender neuro patient is alert x3, no focal deficits BLE wounds, venous Results Labs 08/28/25 11:55 08/28/25 11:55 Labs: Laboratory Results - last 24 hr 08/28/25 08/28/25 08/28/25 11:55 12:11 14:00 MCV 78.3 L MCH 25.3 L MCHC 32.3 RDW 14.2 Plt Count 264 MPV 9.9 Immature Gran % (Auto) 0.4 Neut % (Auto) 68.3 Lymph % (Auto) 11.7 L [place] % (Auto) 7.8 Eos % (Auto) 10.8 H Baso % (Auto) 1.0 Lymph # (Auto) 1.1 L [place] # (Auto) 0.8 Eos # (Auto) 1.1 H Baso # (Auto) 0.1 Abs Immat Gran (auto) 0.04 H Absolute Neuts (auto) 6.7 Absolute Nucleated RBC 0.000 Nucleated RBC % (auto) 0.0 ESR 10 Anion Gap 12 Estim Creat Clear Calc 52.3 Estimated GFR 57 POC Glucose 301 H Random Glucose 332 H Lactic Acid 1.3 Calcium 8.8 Magnesium 1.7 Total Bilirubin 0.6 AST 16 ALT 18 Alkaline Phosphatase 123 H C-Reactive Protein 4.50 H Total Protein 6.4 L Albumin 3.5 Urine Color Yellow Urine Appearance Clear Urine pH 5.5 Ur Specific Smoot 1.020 Urine Protein 300 (3+) H Urine Glucose (UA) >=1000 H Urine Ketones Negative Urine Blood Trace H Urine Nitrite Negative Ur Leukocyte Esterase Negative Urine RBC 0-2 Urine WBC 0-5 Ur Squamous Epith Cells 0-2 Urine Bacteria Trace Hyaline Casts 0-2 Imaging Radiologist's Impressions: Impressions Foot X-Ray 08/28/25 12:24 IMPRESSION: 1. No definite radiographic evidence of osteomyelitis in either foot. 2. Diffuse mild soft tissue swelling bilaterally. 3. 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 Electronically signed by: Jerod He MD 08/28/2025 01:38 PM EST RP Chest X-Ray 08/28/25 12:30 IMPRESSION: Chronic interstitial lung disease with likely superimposed interstitial lung edema and left-sided small volume pleural effusion. Superimposed the acute inflammatory versus infectious process cannot be excluded. Electronically signed by: Jovanny Horton MD 08/28/2025 01:15 PM EST RP Tibia/Fibula X-Ray 08/28/25 12:30 IMPRESSION: Right tibia and fibula: 1. Subtle hazy density along the lateral cortex of the mid fibular diaphysis, is an equivocal finding, could represent subtle periosteal reaction. If there is clinical concern for osteomyelitis, recommend MRI without and with contrast. 2. Medial dome subchondral seen could reflect degenerative changes, osteochondral lesion. Left tibia and fibula: 1. No radiographic evidence of acute osseous findings 2. There is clinical concern for radiographically occult osteomyelitis, MRI without and with contrast can be obtained. Electronically signed by: Lee Aviles MD 08/28/2025 01:24 PM [facility] Assessment and Plan (1) Type 2 diabetes mellitus without complications: Status: Acute Plan 85 year old man with possible osteomyelitis to right leg and uncontrolled DM 2 Venous foot wounds/cellulitis ? possible osteomyelitis disscuss case with ID prior to ordering imaging studies started on Vancomycin wound care consult Uncontrolled diabetes mellitus 2 Over 300, likely contributing to foot wounds ss, ada diet Check A1C Hypertension continue home medications CKD 3 baseline Paroxysmal atrial fibrillation EKG with normal sinus rhythm Heart failure with preserved ejection fraction No exacerbation History of coronary artery disease Continue home medications DVT prophylaxis with heparin Full code Quality Stroke Does the patient have a stroke diagnosis?: No VTE Prior VTE?: No VTE Risk Level:: Medical - moderate - high VTE Device Contraindication: Treatment Not Indicated VTE Drug Contraindication: N/A - Med Ordered
--- OUTSIDE RECORDS SUMMARY | 2025-08-28 15:06 | XMS_ITS | Encounter Summary ---
Author Organization [facility] Address [id number] [place] [id number] Care Team Providers Care Technical Fellow Name Role Phone Ember Guerra MD Primary Care Provider [phone] Encounter Details Date Type Department Care Team (Latest Contact Info) Description 03/23/2025 Lab Requisition [facility] - Main Lab [address] [place] [address] Sera Joe MD [address] [place] [address] Type 2 diabetes mellitus without complications ([facility]/HCC V24, CMS/HCC V28); Chronic kidney disease, stage 3 unspecified (CMS/HCC V24, CMS/[facility] V28); Chronic obstructive pulmonary disease with (acute) exacerbation (CMS/HCC V24, CMS/[facility] V28) Social History Tobacco Use Types Packs/Day [...] kidney disease, stage 3 unspecified (CMS/HCC V24, CMS/[facility] V28) Chronic obstructive pulmonary disease with (acute) exacerbation (CMS/HCC V24, CMS/[facility] V28) HEMOGLOBIN A1C Routine 03/23/2025 5:40 AM EDT Type 2 diabetes mellitus without complications (CMS/[facility] V24, [facility] V28) Chronic kidney disease, stage 3 unspecified ([facility] V24, [facility] V28) Chronic obstructive pulmonary disease with (acute) exacerbation ([facility] V24, [facility] V28) COMPREHENSIVE METABOLIC PANEL Routine 03/23/2025 5:40 AM EDT Type 2 diabetes mellitus without complications ([facility] [place]24, [facility] V28) Chronic kidney disease, stage 3 unspecified ([facility] V24, [facility] V28) Chronic obstructive pulmonary disease with (acute) exacerbation ([facility] V24, [facility] V28) documented in this encounter Results * (ABNORMAL) Hemoglobin A1c (03/23/2025 5:40 AM EDT) [facility] Hemoglobin A1C 10.1(H) <6.5 % LAB CHEMISTRY METHOD 03/23/2025 1:42 PM EDT [facility] Mean Bld Glu Estim. 243 mg/dL LAB CHEMISTRY METHOD 03/23/2025 1:42 PM EDT [facility] Blood Venous blood specimen / Unknown Venipuncture / Unknown 03/23/2025 5:40 AM EDT 03/23/2025 9:03 AM EDT us Sera Joe MD LAB BLOOD ORDERABLES Final Resul t [facility] [address] [place] [address], * (ABNORMAL) Comprehensive metabolic panel (03/23/2025 5:40 AM EDT) [facility] Sodium 140 133 - 145 mmol/L LAB CHEMISTRY METHOD 03/23/2025 10:25 AM EDT [facility] Potassium 3.7 3.5 - 5.5 mmol/L LAB CHEMISTRY METHOD 03/23/2025 10:25 AM EDT [facility] Chloride 103 96 - 110 mmol/L LAB CHEMISTRY METHOD 03/23/2025 10:25 AM [facility] CO2 27 21 - 32 mmol/L LAB CHEMISTRY METHOD 03/23/2025 10:25 AM [facility] Anion Gap 10 3 - 11 LAB CHEMISTRY METHOD 03/23/2025 10:25 AM [facility] Glucose 177(H) 70 - 100 mg/dL LAB CHEMISTRY METHOD 03/23/2025 10:25 AM [facility] BUN 32(H) 5 - 25 mg/dL LAB CHEMISTRY METHOD 03/23/2025 10:25 AM [facility] Creatinine 1.35(H) 0.70 - 1.30 mg/dL LAB CHEMISTRY METHOD 03/23/2025 10:25 AM [facility] eGFR 52(L) >=60 mL/min/1. 73m2 LAB CHEMISTRY METHOD 03/23/2025 10:25 AM [facility] Comment:Calculation based on the Chronic Kidney Disease Epidemiology Collaboration (CKD-EPI) equation refit without adjustment for race. BUN/Creatinine Ratio 23.7 LAB CHEMISTRY METHOD 03/23/2025 10:25 AM [facility] Calcium 8.3(L) 8.5 - 10.5 mg/dL LAB CHEMISTRY METHOD 03/23/2025 10:25 AM [facility] AST (SGOT) 10 10 - 42 unit/L LAB CHEMISTRY METHOD 03/23/2025 10:25 AM [facility] ALT (SGPT) 26 10 - 60 unit/L LAB CHEMISTRY METHOD 03/23/2025 10:25 AM [facility] Alkaline Phosphatase 146(H) 42 - 121 unit/L LAB CHEMISTRY METHOD 03/23/2025 10:25 AM [facility] Total Protein 5.5(L) 6.0 - 8.0 g/dL LAB CHEMISTRY METHOD 03/23/2025 10:25 AM EDT [facility] Albumin 2.9(L) 3.2 - 5.0 g/dL LAB CHEMISTRY METHOD 03/23/2025 10:25 AM EDT [facility] Total Bilirubin 0.4 0.0 - 1.4 mg/dL LAB CHEMISTRY METHOD 03/23/2025 10:25 AM T [facility] Blood Venous blood specimen / Unknown Venipuncture / Unknown 03/23/2025 5:40 AM EDT 03/23/2025 9:03 AM EDT us Sera Joe MD LAB BLOOD ORDERABLES Final Resul t [facility] [address] [place] [address], [place] [phone] * (ABNORMAL) Complete blood count (03/23/2025 5:40 AM EDT) WBC 12.3(H) 4.8 - 10.8 K/mcL LAB HEMETOLOGY METHOD 03/23/2025 10:14 AM [facility] RBC 5.50 4.50 - 5.50 M/[facility] LAB HEMETOLOGY METHOD 03/23/2025 10:14 AM [facility] Hemoglobin 14.7 13.5 - 17.5 g/dL LAB HEMETOLOGY METHOD 03/23/2025 10:14 AM [facility] Hematocrit 45.1 42.0 - 54.0 % LAB HEMETOLOGY METHOD 03/23/2025 10:14 AM [facility] MCV 82.3 79.0 - 98.0 FL LAB HEMETOLOGY METHOD 03/23/2025 10:14 AM [facility] MCH 26.8(L) 27.0 - 32.0 pcg LAB HEMETOLOGY METHOD 03/23/2025 10:14 AM [facility] MCHC 32.6 32.0 - 37.0 g/dL LAB HEMETOLOGY METHOD 03/23/2025 10:14 AM EDT [facility] RDW 13.4 11.0 - 15.0 % LAB HEMETOLOGY METHOD 03/23/2025 10:14 AM EDT [facility] Platelets 248 130 - 400 K/mcL LAB HEMETOLOGY METHOD 03/23/2025 10:14 AM EDT [facility] MPV 10.9 7.0 - 11.0 FL LAB HEMETOLOGY METHOD 03/23/2025 10:14 AM EDT [facility] NRBC 0.0 <1.0 % LAB HEMETOLOGY METHOD 03/23/2025 10:14 AM EDT [facility] NRBC Absolute 0.00 <0.10 K/mcL LAB HEMETOLOGY METHOD 03/23/2025 10:14 AM EDT [facility] Blood Venous blood specimen / Unknown Venipuncture / Unknown 03/23/2025 5:40 AM EDT 03/23/2025 9:03 AM EDT Sera Joe MD LAB BLOOD ORDERABLES Final Resul t [facility] [address] [place] [address], documented in this encounter Visit Diagnoses Diagnosis Type 2 diabetes mellitus without complications (CMS/HCC V24, CMS/HCC V28) Chronic kidney disease, stage 3 unspecified (CMS/HCC V24, CMS/HCC V28) Chronic obstructive pulmonary disease with (acute) exacerbation (CMS/HCC V24, CMS/HCC V28) documented in this encounter Care Teams Technical Fellow Relationship Specialty Start Date End Date Ember Guerra MD [address] [place] [id number] [address] [place] [address] PCP - General Geriatric Medicine 08/11/24 documented as of this encounter
--- OUTSIDE RECORDS SUMMARY | 2025-08-28 15:06 | XMS_ITS | Encounter Summary ---
Author Organization [facility] Address [address] [place] [address] Care Team Providers Care Coil Wrapper Name Role Phone Ebmer Guerra MD Primary Care Provider [phone] Encounter Details Date Type Department Care Team (Late st Contact Info) Description 08/11/[address] [facility] - Main Lab [address] [place] [address] Ember Guerra MD [address] [place] [address] Vitamin D deficiency, unspecified; Other viral infections of unspecified site; Unsteadiness on feet; Muscle weakness (generalized); Acute kidney failure, unspecified (CMS/HCC V24); Shortness of breath; Atherosclerotic heart disease of [place] coronary artery without angina pectoris; Essential (primary) [...] Shortness of breath Atherosclerotic heart disease of [place] coronary artery without angina pectoris Essential (primary) 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) COMPLETE BLOOD COUNT Routine 08/11/2024 6:08 AM EST Vitamin D deficiency, unspecified Other viral infections of unspecified site Unsteadiness on feet Muscle weakness (generalized) Acute kidney failure, unspecified (CMS/HCC) Shortness of breath Atherosclerotic heart disease of [place] coronary artery without angina pectoris Essential (primary) 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) THYROID STIMULATING HORMONE Routine 08/11/2024 6:08 AM EST Vitamin D deficiency, unspecified Other viral infections of unspecified site Unsteadiness on feet Muscle weakness (generalized) Acute kidney failure, unspecified (CMS/HCC) Shortness of breath Atherosclerotic heart disease of [place] coronary artery without angina pectoris Essential (primary) 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) HEMOGLOBIN A1C Routine 08/11/2024 6:08 AM EST Vitamin D deficiency, unspecified Other viral infections of unspecified site Unsteadiness on feet Muscle weakness (generalized) Acute kidney failure, unspecified (CMS/HCC) Shortness of breath Atherosclerotic heart disease of [place] coronary artery without angina pectoris Essential (primary) 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) FOLATE Routine 08/11/2024 6:08 AM EST Vitamin D deficiency, unspecified Other viral infections of unspecified site Unsteadiness on feet Muscle weakness (generalized) Acute kidney failure, unspecified (CMS/HCC) Shortness of breath Atherosclerotic heart disease of [place] coronary artery without angina pectoris Essential (primary) 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) VITAMIN B12 Routine 08/11/2024 6:08 AM EST Vitamin D deficiency, unspecified Other viral infections of unspecified site Unsteadiness on feet Muscle weakness (generalized) Acute kidney failure, unspecified (CMS/HCC) Shortness of breath Atherosclerotic heart disease of [place] coronary artery without angina pectoris Essential (primary) 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) COMPREHENSIVE METABOLIC PANEL Routine 08/11/2024 6:08 AM EST Vitamin D deficiency, unspecified Other viral infections of unspecified site Unsteadiness on feet Muscle weakness (generalized) Acute kidney failure, unspecified (CMS/HCC) Shortness of breath Atherosclerotic heart disease of [place] coronary artery without angina pectoris Essential (primary) 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) documented in this encounter Results * (ABNORMAL) Hemoglobin A1c (08/11/2024 6:08 AM EST) Hemoglobin A1C 9.2(H) <6.5 % LAB CHEMISTRY METHOD 08/11/2024 10:54 AM EST [facility] Mean Bld Glu Estim. 217 mg/dL LAB CHEMISTRY METHOD 08/11/2024 10:54 AM EST [facility] Blood Venous blood specimen / Unknown Venipuncture / Unknown 08/11/2024 6:08 AM EST 08/11/2024 7:48 AM EST Ember Guerra MD LAB BLOOD ORDERABLES Final Resul t Performing Organization Address City/[facility]/ZIP Co de Phone Number [facility] [address] [place] [address], * (ABNORMAL) Vitamin D 25 hydroxy (08/11/2024 6:08 AM EST) Vit D, 25-Hydroxy 21.0(L) 30.0 - 80.0 ng/mL LAB CHEMISTRY METHOD 08/11/2024 9:02 AM EST [facility] Blood Venous blood specimen / Unknown Venipuncture / Unknown 08/11/2024 6:08 AM EST 08/11/2024 7:48 AM EST Ember Guerra MD LAB BLOOD ORDERABLES Final Resul t Performing Organization Address City/[facility]/ZIP Co de Phone Number [facility] [address] [place] [address], * Folate (08/11/2024 6:08 AM EST) Pathologist [facility] Folate 11.8 2.8 - 17.0 ng/ml LAB CHEMISTRY METHOD 08/11/2024 9:01 AM EST [facility] Blood Venous blood specimen / Unknown Venipuncture / Unknown 08/11/2024 6:08 AM EST 08/11/2024 7:48 AM EST us Ember Guerra MD LAB BLOOD ORDERABLES Final Resul t Performing Organization Address City/[facility]/ZIP Co de Phone Number [facility] [address] [place] [address], [place] [phone] * (ABNORMAL) Vitamin B12 (08/11/2024 6:08 AM EST) [facility] Vitamin B-12 963(H) 250 - 900 pcg/mL LAB CHEMISTRY METHOD 08/11/2024 9:01 AM EST [facility] Blood Venous blood specimen / Unknown Venipuncture / Unknown 08/11/2024 6:08 AM EST 08/11/2024 7:48 AM EST us Ember Guerra MD LAB BLOOD ORDERABLES Final Resul t Performing Organization Address City/[facility]/ZIP Co de Phone Number [facility] [address] [place] [address], [place] [phone] * (ABNORMAL) Thyroid stimulating hormone (08/11/2024 6:08 AM EST) [facility] TSH 4.68(H) 0.40 - 4.00 mcIU/mL LAB CHEMISTRY METHOD 08/11/2024 9:03 AM EST [facility] Blood Venous blood specimen / Unknown Venipuncture / Unknown 08/11/2024 6:08 AM EST 08/11/2024 7:48 AM EST us Ember Guerra MD LAB BLOOD ORDERABLES Final Resul t [facility] [address] [place] [address], * (ABNORMAL) Comprehensive metabolic panel (08/11/2024 6:08 AM EST) Sodium 139 133 - 145 mmol/L LAB CHEMISTRY METHOD 08/11/2024 8:38 AM [facility] Potassium 3.9 3.5 - 5.5 mmol/L LAB CHEMISTRY METHOD 08/11/2024 8:38 AM [facility] Chloride 106 96 - 110 mmol/L LAB CHEMISTRY METHOD 08/11/2024 8:38 AM [facility] CO2 25 21 - 32 mmol/L LAB CHEMISTRY METHOD 08/11/2024 8:38 AM [facility] Anion Gap 8 3 - 11 LAB CHEMISTRY METHOD 08/11/2024 8:38 AM [facility] Glucose 80 70 - 100 mg/dL LAB CHEMISTRY METHOD 08/11/2024 8:38 AM [facility] BUN 31(H) 5 - 25 mg/dL LAB CHEMISTRY METHOD 08/11/2024 8:38 AM [facility] Creatinine 1.61(H) 0.70 - 1.30 mg/dL LAB CHEMISTRY METHOD 08/11/2024 8:38 AM [facility] eGFR 42(L) >=60 mL/min/1. 73m2 LAB CHEMISTRY METHOD 08/11/2024 8:38 AM [facility] Comment:Calculation based on the Chronic Kidney Disease Epidemiology Collaboration (CKD-EPI) equation refit without adjustment for race. BUN/Creatinine Ratio 19.3 LAB CHEMISTRY METHOD 08/11/2024 8:38 AM [facility] Calcium 8.8 8.5 - 10.5 mg/dL LAB CHEMISTRY METHOD 08/11/2024 8:38 AM [facility] AST (SGOT) 14 10 - 42 unit/L LAB CHEMISTRY METHOD 08/11/2024 8:38 AM [facility] ALT (SGPT) 24 10 - 60 unit/L LAB CHEMISTRY METHOD 08/11/2024 8:38 AM [facility] Alkaline Phosphatase 92 42 - 121 unit/L LAB CHEMISTRY METHOD 08/11/2024 8:38 AM [facility] Total Protein 5.9(L) 6.0 - 8.0 g/dL LAB CHEMISTRY METHOD 08/11/2024 8:38 AM [facility] Albumin 3.0(L) 3.2 - 5.0 g/dL LAB CHEMISTRY METHOD 08/11/2024 8:38 AM [facility] Total Bilirubin 0.5 0.0 - 1.4 mg/dL LAB CHEMISTRY METHOD 08/11/2024 8:38 AM [facility] Blood Venous blood specimen / Unknown Venipuncture / Unknown 08/11/2024 6:08 AM EST 08/11/2024 7:48 AM EST us Ember Guerra MD LAB BLOOD ORDERABLES Final Resul t [facility] [address] [place] [address], * (ABNORMAL) Complete blood count (08/11/2024 6:08 AM EST) WBC 9.6 4.8 - 10.8 K/mcL LAB HEMETOLOGY METHOD 08/11/2024 8:13 AM [facility] RBC 5.00 4.50 - 5.50 M/mcL LAB HEMETOLOGY METHOD 08/11/2024 8:13 AM [facility] Hemoglobin 13.2(L) 13.5 - 17.5 g/dL LAB HEMETOLOGY METHOD 08/11/2024 8:13 AM EST [facility] Hematocrit 41.1(L) 42.0 - 54.0 % LAB HEMETOLOGY METHOD 08/11/2024 8:13 AM EST [facility] MCV 82.7 79.0 - 98.0 FL LAB HEMETOLOGY METHOD 08/11/2024 8:13 AM EST [facility] MCH 26.6(L) 27.0 - 32.0 pcg LAB HEMETOLOGY METHOD 08/11/2024 8:13 AM EST [facility] MCHC 32.1 32.0 - 37.0 g/dL LAB HEMETOLOGY METHOD 08/11/2024 8:13 AM EST [facility] RDW 14.5 11.0 - 15.0 % LAB HEMETOLOGY METHOD 08/11/2024 8:13 AM EST [facility] Platelets 204 130 - 400 K/mcL LAB HEMETOLOGY METHOD 08/11/2024 8:13 AM EST [facility] MPV 11.0 7.0 - 11.0 FL LAB HEMETOLOGY METHOD 08/11/2024 8:13 AM EST [facility] NRBC 0.0 <1.0 % LAB HEMETOLOGY METHOD 08/11/2024 8:13 AM EST [facility] NRBC Absolute 0.00 <0.10 K/mcL LAB HEMETOLOGY METHOD 08/11/2024 8:13 AM [facility] Blood Venous blood specimen / Unknown Venipuncture / Unknown 08/11/2024 6:08 AM EST 08/11/2024 7:48 AM EST us Ember Guerra MD LAB BLOOD ORDERABLES Final Resul t [facility] [address] [place] [address], documented in this encounter Visit Diagnoses Diagnosis Vitamin D deficiency, unspecified Other viral infections of unspecified site Unsteadiness on feet Muscle weakness (generalized) Acute kidney failure, unspecified ([facility] V24) Acute kidney failure, unspecified Shortness of breath Atherosclerotic heart disease of [place] coronary artery without angina pectoris Essential (primary) hypertension Unspecified essential hypertension Type 2 diabetes mellitus with unspecified complications ([facility] V24, [facility] V28) documented in this encounter Care Teams Coil Wrapper Relationship Specialty Start Date End Date Ember Guerra MD [address] [place] [address] [address] [place] [address] PCP - General Geriatric Medicine 08/11/24 documented as of this encounter
--- OUTSIDE RECORDS SUMMARY | 2025-08-28 15:06 | XMS_ITS | Encounter Summary ---
[facility] Address [address] [place] [address] Care Team Providers Care Pile Driver Operator Barge Mounted Name Role Phone Ember Guerra MD Primary Care Provider [phone] Encounter Details Date Type Department Care Team (Late st Contact Info) Description 07/30/2024 Lab Requisition [facility] - Main Lab [address] [facility] [place] [address] Ember Guerra MD [address] [place] [address] Other viral infections of unspecified site Social [...] Travel phlebotomy fee (08/01/2024 7:28 AM EST) [facility] TRAVEL PHLEBOTOMY FEE Completed 08/01/2024 10:01 AM EST [facility] Blood Venous blood specimen / Unknown Venipuncture / Unknown 08/01/2024 7:28 AM EST 08/01/2024 9:25 AM EST Ember Guerra MD LAB BLOOD ORDERABLES Final Resul t [facility] [address] [place] [address], * (ABNORMAL) Basic metabolic panel (08/01/2024 7:28 AM EST) Sodium 138 133 - 145 mmol/L LAB CHEMISTRY METHOD 08/01/2024 10:[address] [facility] Potassium 4.1 3.5 - 5.5 mmol/L LAB CHEMISTRY METHOD 08/01/2024 10:[address] [facility] Chloride 103 96 - 110 mmol/L LAB CHEMISTRY METHOD 08/01/2024 10:[address] [facility] CO2 29 21 - 32 mmol/L LAB CHEMISTRY METHOD 08/01/2024 10:[address] [facility] Anion Gap 6 3 - 11 LAB CHEMISTRY METHOD 08/01/2024 10:[address] [facility] Glucose 136(H) 70 - 100 mg/dL LAB CHEMISTRY METHOD 08/01/2024 10:[address] [facility] BUN 28(H) 5 - 25 mg/dL LAB CHEMISTRY METHOD 08/01/2024 10:[address] [facility] Creatinine 1.51(H) 0.70 - 1.30 mg/dL LAB CHEMISTRY METHOD 08/01/2024 10:[address] [facility] eGFR 46(L) >=60 mL/min/1. 73m2 LAB CHEMISTRY METHOD 08/01/2024 10:[address] [facility] Comment:Calculation based on the Chronic Kidney Disease Epidemiology Collaboration (CKD-EPI) equation refit without adjustment for race. BUN/Creatinine Ratio 18.5 LAB CHEMISTRY METHOD 08/01/2024 10:[address] [facility] Calcium 9.2 8.5 - 10.5 mg/dL LAB CHEMISTRY METHOD 08/01/2024 10:[address] [facility] Blood Venous blood specimen / Unknown Venipuncture / Unknown 08/01/2024 7:28 AM EST 08/01/2024 9:25 AM EST Ember Guerra MD LAB BLOOD ORDERABLES Final Resul t [facility] [address] [place] [address], * (ABNORMAL) Complete blood count (08/01/2024 7:28 AM EST) WBC 8.0 4.8 - 10.8 K/mcL LAB HEMETOLOGY METHOD 08/01/2024 10:[address] [facility] RBC 5.10 4.50 - 5.50 M/mcL LAB HEMETOLOGY METHOD 08/01/2024 10:[address] [facility] Hemoglobin 13.5 13.5 - 17.5 g/dL LAB HEMETOLOGY METHOD 08/01/2024 10:[address] [facility] Hematocrit 42.8 42.0 - 54.0 % LAB HEMETOLOGY METHOD 08/01/2024 10:[address] [facility] MCV 83.6 79.0 - 98.0 FL LAB HEMETOLOGY METHOD 08/01/2024 10:[address] [facility] MCH 26.4(L) 27.0 - 32.0 pcg LAB HEMETOLOGY METHOD 08/01/2024 10:[address] [facility] MCHC 31.5(L) 32.0 - 37.0 g/dL LAB HEMETOLOGY METHOD 08/01/2024 10:46 AM EST [facility] RDW 14.4 11.0 - 15.0 % LAB HEMETOLOGY METHOD 08/01/2024 10:[address] [facility] Platelets 242 130 - 400 K/mcL LAB HEMETOLOGY METHOD 08/01/2024 10:[address] [facility] MPV 11.2(H) 7.0 - 11.0 FL LAB HEMETOLOGY METHOD 08/01/2024 10:[address] [facility] NRBC 0.0 <1.0 % LAB HEMETOLOGY METHOD 08/01/2024 10:[address] [facility] NRBC Absolute 0.00 <0.10 K/mcL LAB HEMETOLOGY METHOD 08/01/2024 10:[address] [facility] Blood Venous blood specimen / Unknown Venipuncture / Unknown 08/01/2024 7:28 AM EST 08/01/2024 9:25 AM EST us Ember Guerra MD LAB BLOOD ORDERABLES Final Resul t [facility] [address] [place] [address], documented in this encounter Visit Diagnoses Diagnosis Other viral infections of unspecified site documented in this encounter Care Teams Pile Driver Operator Barge Mounted Relationship Specialty Start Date End Date Ember Guerra MD [address] [place] [address] [address] [place] [address] PCP - General Geriatric Medicine 08/11/24 documented as of this encounter
--- OUTSIDE RECORDS SUMMARY | 2025-08-28 15:06 | XMS_ITS | Clinical Summary ---
Author Organization [address] Address [address] [place] [address] Phone Care Team Providers Care Order To Delivery Supervisor Name Role Phone Ember Guerra MD Primary Care Provider [phone] Surgical History Surgery Date Site/Laterality Comments BYPASS GRAFT PROCEDURE: MT AMPUTATION TOE METATARSOPHALANGEAL JOINT; 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 CHOLECYSTECTOMY PROCEDURE: HISTORICAL CHOLECYSTECTOMY FLEXIBLE SIGMOIDOSCOPY 07/30/2005 PROCEDURE: MT SIGMOIDOSCOPY FLX DX W/COLLJ SPEC BR/WA IF PFRMD; COMMENT: diverticulosis; otherwise neg to 70 cm FLEXIBLE SIGMOIDOSCOPY 06/17/2011 PROCEDURE: MT SIGMOIDOSCOPY FLX DX W/COLLJ SPEC BR/WA IF PFRMD; COMMENT: negative to 35 cm, tics Medical History Medical History Date Comments Prostate cancer ([facility] V24 , [facility] V28) 08/07/2008 DX:Prostate cancer (HCC) Ventricular tachycardia ([facility] V24, [facility] V28) 09/12/2009 DX:Ventricular tachycardia ( HCC) Family [...] Health Maintenance Due Date Last Done Comments Colorectal Cancer Screening: Colonoscopy 1941 Diabetes: Annual Foot Exam 1951 Diabetes: Annual Retina Eye Exam 1951 Diabetes: Annual Urine Albumin-Creatinine Ratio (uACR) 08/11/2024 [...] Procedure Name Priority Date/Time Associated Diagnosis Comments COMPREHENSIVE METABOLIC PANEL Routine 03/23/2025 5:40 AM EDT Type 2 diabetes mellitus without complications ([facility] V24, [facility] V28) Chronic kidney disease, stage 3 unspecified ([facility] V24, [facility] V28) Chronic obstructive pulmonary disease with (acute) exacerbation ([facility] V24, [facility] V28) HEMOGLOBIN A1C Routine 03/23/2025 5:40 AM EDT Type 2 diabetes mellitus without complications ([facility] V24, [facility] V28) Chronic kidney disease, stage 3 unspecified ([facility] V24, [facility] V28) Chronic obstructive pulmonary disease with (acute) exacerbation ([facility] V24, [facility] V28) from Last 3 Months or Most Recently Relevant to Health Maintenance Results * (ABNORMAL) Hemoglobin A1c (03/23/2025 5:40 AM EDT) Hemoglobin A1C 10.1(H) <6.5 % LAB CHEMISTRY METHOD 03/23/2025 1:42 PM EDT [facility] Mean Bld Glu Estim. 243 mg/dL LAB CHEMISTRY METHOD 03/23/2025 1:42 PM EDT [facility] Blood Venous blood specimen / Unknown Venipuncture / Unknown 03/23/2025 5:40 AM EDT 03/23/2025 9:03 AM EDT us Sera Joe MD LAB BLOOD ORDERABLES Final Resul t [facility] [address] [place] [address], * (ABNORMAL) Comprehensive metabolic panel (03/23/2025 5:40 AM EDT) Sodium 140 133 - 145 mmol/L LAB CHEMISTRY METHOD 03/23/2025 10:25 AM [facility] Potassium 3.7 3.5 - 5.5 mmol/L LAB CHEMISTRY METHOD 03/23/2025 10:25 AM [facility] Chloride 103 96 - 110 mmol/L LAB CHEMISTRY METHOD 03/23/2025 10:25 AM [facility] CO2 27 21 - 32 mmol/L LAB CHEMISTRY METHOD 03/23/2025 10:25 AM [facility] Anion Gap 10 3 - 11 LAB CHEMISTRY METHOD 03/23/2025 10:25 AM [facility] Glucose 177(H) 70 - 100 mg/dL LAB CHEMISTRY METHOD 03/23/2025 10:25 AM [facility] BUN 32(H) 5 - 25 mg/dL LAB CHEMISTRY METHOD 03/23/2025 10:25 AM [facility] Creatinine 1.35(H) 0.70 - 1.30 mg/dL LAB CHEMISTRY METHOD 03/23/2025 10:25 AM [facility] eGFR 52(L) >=60 mL/min/1. 73m2 LAB CHEMISTRY METHOD 03/23/2025 10:25 AM [facility] Comment:Calculation based on the Chronic Kidney Disease Epidemiology Collaboration (CKD-EPI) equation refit without adjustment for race. BUN/Creatinine Ratio 23.7 LAB CHEMISTRY METHOD 03/23/2025 10:25 AM [facility] Calcium 8.3(L) 8.5 - 10.5 mg/dL LAB CHEMISTRY METHOD 03/23/2025 10:25 AM [facility] AST (SGOT) 10 10 - 42 unit/L LAB CHEMISTRY METHOD 03/23/2025 10:25 AM [facility] ALT (SGPT) 26 10 - 60 unit/L LAB CHEMISTRY METHOD 03/23/2025 10:25 AM [facility] Alkaline Phosphatase 146(H) 42 - 121 unit/L LAB CHEMISTRY METHOD 03/23/2025 10:25 AM EDT [facility] Total Protein 5.5(L) 6.0 - 8.0 g/dL LAB CHEMISTRY METHOD 03/23/2025 10:25 AM EDT [facility] Albumin 2.9(L) 3.2 - 5.0 g/dL LAB CHEMISTRY METHOD 03/23/2025 10:25 AM EDT [facility] Total Bilirubin 0.4 0.0 - 1.4 mg/dL LAB CHEMISTRY METHOD 03/23/2025 10:25 AM EDT [facility] Blood Venous blood specimen / Unknown Venipuncture / Unknown 03/23/2025 5:40 AM EDT 03/23/2025 9:03 AM EDT us Sera Joe MD LAB BLOOD ORDERABLES Final Resul t [facility] [address] [place] [address], from Last 3 Months or Most Recently Relevant to Health Maintenance Insurance MEDICARE [facility] Care Teams Order To Delivery Supervisor Relationship Specialty Start Date End Date Ember Guerra MD [address] [place] [address] [address] [place] [address] PCP - General Geriatric Medicine 08/11/24
--- OUTSIDE RECORDS SUMMARY | 2025-08-28 15:06 | XMS_ITS | Encounter Summary ---
Author Organization [facility] Address [address] [place] [address] Care Team Providers Care Lead Instructor/Flight Attendant Name Role Phone Ember Guerra MD Primary Care Provider [phone] Encounter Details Date Type Department Care Team (Late st Contact Info) Description 12/26/2024 Lab Requisition [facility] - Main Lab [address] [place] [address] Sera Joe MD [address] [place] [address] Chronic obstructive pulmonary disease, unspecified [...] mmol/L LAB CHEMISTRY METHOD 12/26/2024 12:24 PM [facility] Potassium 4.0 3.5 - 5.5 mmol/L LAB CHEMISTRY METHOD 12/26/2024 12:24 PM [facility] Chloride 103 96 - 110 mmol/L LAB CHEMISTRY METHOD 12/26/2024 12:24 PM [facility] CO2 27 21 - 32 mmol/L LAB CHEMISTRY METHOD 12/26/2024 12:24 PM [facility] Anion Gap 8 3 - 11 LAB CHEMISTRY METHOD 12/26/2024 12:24 PM [facility] Glucose 165(H) 70 - 100 mg/dL LAB CHEMISTRY METHOD 12/26/2024 12:24 PM [facility] BUN 32(H) 5 - 25 mg/dL LAB CHEMISTRY METHOD 12/26/2024 12:24 PM [facility] Creatinine 1.54(H) 0.70 - 1.30 mg/dL LAB CHEMISTRY METHOD 12/26/2024 12:24 PM [facility] eGFR 44(L) >=60 mL/min/1. 73m2 LAB CHEMISTRY METHOD 12/26/2024 12:24 PM [facility] Comment:Calculation based on the Chronic Kidney Disease Epidemiology Collaboration (CKD-EPI) equation refit without adjustment for race. BUN/Creatinine Ratio 20.8 LAB CHEMISTRY METHOD 12/26/2024 12:24 PM [facility] Calcium 8.2(L) 8.5 - 10.5 mg/dL LAB CHEMISTRY METHOD 12/26/2024 12:24 PM [facility] AST (SGOT) 18 10 - 42 unit/L LAB CHEMISTRY METHOD 12/26/2024 12:24 PM [facility] ALT (SGPT) 35 10 - 60 unit/L LAB CHEMISTRY METHOD 12/26/2024 12:24 PM EDT [facility] Alkaline Phosphatase 114 42 - 121 unit/L LAB CHEMISTRY METHOD 12/26/2024 12:24 PM EDT [facility] Total Protein 5.5(L) 6.0 - 8.0 g/dL LAB CHEMISTRY METHOD 12/26/2024 12:24 PM T [facility] Albumin 2.6(L) 3.2 - 5.0 g/dL LAB CHEMISTRY METHOD 12/26/2024 12:24 PM EDT [facility] Total Bilirubin 0.5 0.0 - 1.4 mg/dL LAB CHEMISTRY METHOD 12/26/2024 12:24 PM EDT [facility] Blood Venous blood specimen / Unknown Venipuncture / Unknown 12/26/2024 6:10 AM EDT 12/26/2024 10:45 AM EDT Sera Joe MD LAB BLOOD ORDERABLES Final Resul t [facility] [address] [place] [address], * (ABNORMAL) Complete blood count (12/26/2024 6:10 AM EDT) WBC 12.4(H) 4.8 - 10.8 K/mcL LAB HEMETOLOGY METHOD 12/26/2024 12:17 PM EDT [facility] RBC 5.00 4.50 - 5.50 M/mcL LAB HEMETOLOGY METHOD 12/26/2024 12:17 PM EDT [facility] Hemoglobin 13.6 13.5 - 17.5 g/dL LAB HEMETOLOGY METHOD 12/26/2024 12:17 PM EDT [facility] Hematocrit 42.8 42.0 - 54.0 % LAB HEMETOLOGY METHOD 12/26/2024 12:17 PM EDT [facility] MCV 84.9 79.0 - 98.0 FL LAB HEMETOLOGY METHOD 12/26/2024 12:17 PM EDT [facility] MCH 27.0 27.0 - 32.0 pcg LAB HEMETOLOGY METHOD 12/26/2024 12:17 PM EDT [facility] MCHC 31.8(L) 32.0 - 37.0 g/dL LAB HEMETOLOGY METHOD 12/26/2024 12:17 PM EDT [facility] RDW 13.9 11.0 - 15.0 % LAB HEMETOLOGY METHOD 12/26/2024 12:17 PM EDT [facility] Platelets 188 130 - 400 K/mcL LAB HEMETOLOGY METHOD 12/26/2024 12:17 PM EDT [facility] MPV 11.5(H) 7.0 - 11.0 FL LAB HEMETOLOGY METHOD 12/26/2024 12:17 PM EDT [facility] NRBC 0.0 <1.0 % LAB HEMETOLOGY METHOD 12/26/2024 12:17 PM EDT [facility] NRBC Absolute 0.00 <0.10 K/mcL LAB HEMETOLOGY METHOD 12/26/2024 12:17 PM EDT [facility] Blood Venous blood specimen / Unknown Venipuncture / Unknown 12/26/2024 6:10 AM EDT 12/26/2024 10:45 AM EDT us Sera Joe MD LAB BLOOD ORDERABLES Final Resul t [facility] [address] [place] [address], documented in this encounter Visit Diagnoses Diagnosis Chronic obstructive pulmonary disease, unspecified (CMS/HCC V24, CMS/HCC V28) Respiratory failure, unspecified with hypoxia (CMS/HCC V24, CMS/HCC V28) Anemia, unspecified documented in this encounter Care Teams Lead Instructor/Flight Attendant Relationship Specialty Start Date End Date Ember Guerra MD [address] [place] [address] [address] [place] [address] PCP - General Geriatric Medicine 08/11/24 documented as of this encounter
--- NOTE | 2025-08-28 15:13 | PHA.PROG ---
Admission Date/Time: August 28, 2025 14:42 Indication:OTHER Weight in k.7 kg Serum Creatinine - Last 168 Hours 08/28/25 11:55 Creatinine 1.21 Estimated CrCl and GFR - Last 168 Hours 08/28/25 11:55 Estim Creat Clear Calc 52.3 Estimated GFR 57 Vancomycin Loading Dose: 2000 Current Vancomycin Dosing Regimen: 1250 Q 24H Vancomycin Monitoring using AUC goal of 400 - 600 range with trough as surrogate marker: 469 Date and Time for next Vancomycin Level to be drawn: 08/30 @ 1200 Pharmacist Comments on Vancomycin Plan: Vancomycin dosing will take advantage of [employer] as a clinical decision support tool that uses Bayesian modeling to calculate individual patient's pharmacokinetic parameters and forecast the patient's drug concentration time course with the target goal AUC 24 range of 400 - 600 mg/L/hr.
[2025-08-28 16:54] LABS: NT Pro B Type Natriuretic Pept 5215.6 pg/mL (<300)
[2025-08-28] MEDS: 0.9 % Sodium Chloride Flush 3 ML SYRINGE IVFLUSH ×2 (17:31→23:36)
[2025-08-28 18:33] VITALS: BP 143/73; PULSE 90; RESP 20; TEMP 36.2; O2SAT 93
--- NOTE | 2025-08-28 18:38 | PHA.MEDREC ---
Pharmacy Consult ? Medication Reconciliation Pharmacy has completed the medication reconciliation.MED REC COMPLETE, UTILIZED LIST FROM AL. PATIENT STATED ONLY USING 10 UNITS OF INSULIN DESPITE PHARMACY LISTING HIS DOSE 44 UNITS
--- NOTE | 2025-08-28 19:41 | HO.NURTONUR ---
Chief Complaint: leg infection 85-year-old male, full code, allergies to hydrochlorothiazide, diabetic diet, with a history of lower extremity wounds presents to the ER with worsening appearance of wounds. He reports foul-smelling discharge and reports that he is the one that does his wound care but does [facility]. He denied any fever, chills, nausea, vomiting, diarrhea. No fever leukocytosis noted. Bilateral foot x-ray done. Right foot showing no fracture dislocation or bone lesion. Left foot showed the same. Right tibiofibula x-ray showed equivocal findings of possible osteoarthritis. Left tibia and fibula x-rays showing no definitive signs for osteomyelitis but recommend MRI. Patient is started on IV vancomycin. He was also noted to have uncontrolled blood sugars. He will be admitted for cellulitis and uncontrolled diabetes mellitus. Imaging: Foot X-Ray showed: 1. No definite radiographic evidence of osteomyelitis in either foot. 2. Diffuse mild soft tissue swelling bilaterally. 3. 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 Chest X-Ray showed: Chronic interstitial lung disease with likely superimposed interstitial lung edema and left-sided small volume pleural effusion. Superimposed the acute inflammatory versus infectious process cannot be excluded. Tibia/Fibula X-Ray showed: Right tibia and fibula: 1. Subtle hazy density along the lateral cortex of the mid fibular diaphysis, is an equivocal finding, could represent subtle periosteal reaction. 2. Medial dome subchondral seen could reflect degenerative changes, osteochondral lesion. Left tibia and fibula showed: 1. No radiographic evidence of acute osseous findings 2. There is clinical concern for radiographically occult osteomyelitis, Plan: Admitted for: Venous foot wounds/cellulitis ? possible osteomyelitis disscuss case with ID prior to ordering imaging studies -started on Vancomycin -wound care consult -Check A1C
[2025-08-28 21:05] VITALS: BP 137/69; PULSE 92; TEMP 36.4; O2SAT 93
[2025-08-28 22:45] VITALS: BMI 33.5
[2025-08-28 23:09] LABS: Glucose, Whole Blood 368 mg/dL (60-115)
[2025-08-28 23:32] VITALS: BP 172/86; PULSE 84; RESP 18; TEMP 36.4; O2SAT 92
--- NOTE | 2025-08-29 | ECG_ITS ---
Test Reason : Paroxysmal Afib Blood Pressure : */* mmHG Vent. Rate : 83 BPM Atrial Rate : 322 BPM P-R Int : * ms QRS Dur : 110 ms QT Int : 384 ms P-R-T Axes : 65 -35 75 degrees QTcB Int : 451 ms Atrial flutter with variable A-V block with premature ventricular or aberrantly conducted complexes Left axis deviation Possible Anterior infarct (cited on or before 02-Jul-2024) Abnormal ECG When compared with ECG of 04-Jun-2025 19:54, Incomplete right bundle branch block is no longer Present Referred By: Dixie Butler Electronically Signed By: BIBI BATES
[2025-08-29 04:00] VITALS: BP 175/90; PULSE 80; RESP 18; TEMP 36.5; O2SAT 91
[2025-08-29 07:05] LABS: Hematocrit 41.7 % (42.0-52.0); Hemoglobin 13.7 g/dl (14.0-18.0); Mean Corpuscular HGB Conc 32.9 g/dl (31.0-36.0); Mean Corpuscular Hemoglobin 25.5 pg (27.0-33.0); Mean Corpuscular Volume 77.5 fL (80.0-98.0); NRBC Abs Auto 0.000 X10*3/uL (0.0-0.012); NRBC Pct Auto 0.0 /100WBC (0.0-0.2); Platelet Count 257 X10*3/uL (160-400); Red Blood Count 5.38 X10*6/uL (4.60-5.80); White Blood Count 9.7 X10*3/uL (4.8-10.8)
[2025-08-29 07:20] LABS: Creatinine Clr Calc Pharmacy 48.5; Estimated Glomerular Filt Rate 51
[2025-08-29 07:22] LABS: Anion Gap 12 (12-20); Blood Urea Nitrogen 23 mg/dL (9-16); Calcium 8.7 mg/dL (8.4-10.2); Carbon Dioxide 21 mmol/L (22-29); Chloride 109 mmol/L (96-108); Creatinine Clr Calc Pharmacy 49.2; Estimated Glomerular Filt Rate 52; Potassium 3.9 mmol/L (3.3-5.1); Sodium 138 mmol/L (135-145)
[2025-08-29 07:57] LABS: Glucose, Whole Blood 187 mg/dL (60-115)
[2025-08-29 08:00] VITALS: BP 148/81; PULSE 87; RESP 20; TEMP 37.2; O2SAT 91
--- NOTE | 2025-08-29 08:33 | P.CONGS_ITS ---
History of Present Illness Consult details Consult date: 08/29/25 <Bettye Fiore PA-C - Last Filed: 08/29/25 09:51> Reason for consult: wound care <OFELIA Urena Last Filed: 08/29/25 09:51> Requesting physician: Dixie Butler <Bettye Fiore PA-C - Last Filed: 08/29/25 09:51> Narrative: 85-year-old male with PMH significant for HFpEF, CAD, COPD unspecified, CABG, HTN, paroxysmal a fib, type 2 diabetes and CKD 3, history of lower extremity wounds who presented to the ED with worsening appearance of wounds associated with foul-smelling drainage per EMR. He is a poor historian. He reports having these for years. He is not seen by the wound care center. He is unsure if he has ever had VNA but reports he does wound care himself but then reports he leaves the wounds open. He denied any fever, chills, nausea, vomiting, diarrhea, purulent drainage. Work up in the ED included CBC, BMP which showed no leukocytosis. A1c significant for 11.6. Bilateral foot x-ray performed which showed subtle hazy density along the lateral cortex of the mid fibular diaphysis, is an equivocal finding, could represent subtle periosteal reaction on the right leg. Patient was admitted to the hospitalist service for cellulitis and uncontrolled diabetes mellitus. He was started on IV vancomycin. He thinks his legs have improved since admission. He reports decrease in his activity over the past few months due to his legs. He does report his lower extremities are itchy. Seen with [facility] hydrant setter. <OFELIA Urena Last Filed: 08/29/25 09:51> Review of Systems 2 Constitutional: Constitutional: Denies chills and Denies fever(s) < OFELIA Urena Last Filed: 08/29/25 09:51> ENT: Denies dizziness <OFELIA Urena Last Filed: 08/29/25 09:51> Cardiovascular: Cardiovascular: Denies chest pain and Denies dyspnea < OFELIA Urena Last Filed: 08/29/25 09:51> Respiratory: Respiratory: Denies dyspnea <Bettye Fiore PA-C Last Filed: 08/29/25 09:51> Gastrointestinal: Gastrointestinal: Denies abdominal pain, Denies nausea and Denies vomiting <Bettye Fiore PA-C Last Filed: 08/29/25 09:51> Integumentary/Breasts: Skin/Breast: Reports as per HPI <Bettye Fiore PA-C Last Filed: 08/29/25 09:51> Neurologic: Denies dizziness <Bettye Fiore PA-C Last Filed: 08/29/25 09:51> [facility] Past Medical History Medical History: Medical History (Updated 08/31/25 @ 10:29 by Chip Boogie MD) Lower extremity edema Type 2 diabetes mellitus without complications Paroxysmal A-fib Congestive heart failure CKD (chronic kidney disease) Type 2 diabetes mellitus Coronary artery disease <Bettye Fiore PA-C Last Filed: 08/29/25 09:51> Surgical History Surgical History: Surgical History Hx of CABG <Bettye Fiore PA-C Last Filed: 08/29/25 09:51> Social History Social History: Social History Household Members: Significant Other Housing: House Do you presently have visiting nurse or other home services: No Alcohol intake: unknown Patient Tobacco Use Status: Former Tobacco user e-Cigarette/Vaping Use: Former Use Currently Displaying Signs/Symptoms of Drug Intoxication Withdrawal: No Have you been hit, kicked, punched, or otherwise hurt by someone within the past year? If so, by whom?: No Do you feel safe in your current relationship?: Yes Is there a partner from a previous relationship who is making you feel unsafe now?: No Are you made to feel afraid or neglected: No Advance Directives: Yes Advance Directives on File: Yes Advance Directives Date on File: 07/07/24 Do you have a plan to hurt others: No Plan Recently lost weight without trying: No How much weight loss: Not applicable Eating poorly because of decreased appetite: No Nutrition screen score: 0 Nutrition Risks: No Nutritional Risk Poor oral hygiene: No service: No <Bettye Fiore PA-C - Last Filed: 08/29/25 09:51> Meds Allergies/Adverse reactions: Allergies Allergy/AdvReac Type Severity Reaction Status Date / Time hydrochlorothiazide Allergy Unknown Unknown Verified 08/28/25 11:16 <Bettye Fiore PA-C - Last Filed: 08/29/25 09:51> Active Medications: Current Medications Acetaminophen (Acetaminophen 325 Mg Tablet) 650 mg PO Q6H PRN PRN Reason: Pain, Mild 1-3,fever,headache Amlodipine Besylate (Amlodipine Besylate 10 Mg Tablet) 10 mg PO DAILY [facility]AMAINE; Protocol Calcium Carbonate (Calcium Carbonate 750 Mg Tab.Chew) 750 mg PO Q4H PRN PRN Reason: Heartburn Clopidogrel Bisulfate (Clopidogrel Bisulfate 75 Mg Tablet) 75 mg PO DAILY [facility] Cyanocobalamin (Cyanocobalamin (Vitamin B-12) 1,000 Mcg Tablet) 1,000 mcg PO DAILY [facility] Dextrose (Dextrose 50 % 25 Gm/50 Ml Syringe) 25 gm IVPUSH Q15M PRN; Protocol PRN Reason: per Hypoglycemia Standing Ord. Furosemide (Furosemide 40 Mg Tablet) 40 mg PO DAILY [facility]; Protocol Glucose (Glucose Gel 15 Gm Gel..Gram.) 15 gm PO Q15M PRN; Protocol PRN Reason: per Hypoglycemia Standing Ord. Heparin Sodium (Porcine) (Heparin Sodium,Porcine 5,000 Unit/Ml Vial) 5,000 unit SUBCUT Q12H [facility] Last Admin: 08/29/25 04:05 Dose: 5,000 unit Vancomycin HCl 1,250 mg/ (Sodium Chloride) 250 mls @ 166.667 mls/hr IV Q24H [facility] Insulin Glargine (Insulin Glargine,Hum.Rec.Anlog 100 Unit/Ml 10 Ml Vial) 10 unit SUBCUT DAILY [facility] Insulin Human Lispro (Insulin Lispro 100 Unit/Ml 3 Ml Vial) 0 unit SUBCUT QIDACHS [facility]; Protocol Last Admin: 08/28/25 23:34 Dose: 10 unit Losartan Potassium (Losartan Potassium 50 Mg Tablet) 100 mg PO DAILY [facility]; Protocol Magnesium Hydroxide (Milk Of Magnesia 30 Ml Oral.Susp) 30 ml PO DAILY PRN PRN Reason: Constipation Melatonin (Melatonin 3 Mg Tablet) 6 mg PO BEDTIME PRN PRN Reason: Insomnia Ondansetron HCl (Ondansetron Hcl 4 Mg/2 Ml Vial) 4 mg IVPUSH Q8H PRN PRN Reason: Nausea and Vomiting Pharmacy Consult (Consult Rx Vancomycin Dosing) 1 each MISCELLANE DAILY PRN PRN Reason: Consult order Senna (Sennosides 8.6 Mg Tablet) 8.6 mg PO BEDTIME PRN PRN Reason: Constipation Sodium Chloride (0.9 % Sodium Chloride Flush 3 Ml Syringe) [facility] Last Admin: 08/28/25 23:36 Dose: 3 ml <Bettye Fiore PA-C - Last Filed: 08/29/25 09:51> Home medications: Home Medications ?Medication ?Instructions ?Recorded ?Confirmed ?Last Taken ?Type amlodipine 10 mg tablet 10 mg PO DAILY 07/04/2410/2212/23/24 08:07 History clopidogrel 75 mg tablet 75 mg PO DAILY 07/04/2410/2212/23/24 09:00 History insulin glargine-yfgn 100 unit/mL 10 unit subcut DAILY 07/04/24 08/28/25 12/23/24 08:08 History (3 mL) subcutaneous pen losartan 100 mg tablet 100 mg PO DAILY 07/04/2410/2212/23/24 08:07 History sennosides 8.6 mg tablet (senna) 8.6 mg PO BEDTIME PRN Constipation 07/04/24 08/28/25 12/22/24 20:00 History cyanocobalamin (vitamin B-12) 1,000 mcg PO DAILY 03/1608/28/25 Unknown History 1,000 mcg tablet <Bettye Fiore PA-C - Last Filed: 08/29/25 09:51> Physical Exam 2 Vital Signs: Vital Signs: Last Vital Signs Temp 98.9 F 08/29/25 08:00 Pulse 87 08/29/25 08:00 Resp 20 08/29/25 08:00 BP 148/81 H 08/29/25 08:00 Pulse Ox 91 L 08/29/25 08:00 O2 Del Method Aerosol Mask 08/29/25 08:00 O2 Flow Rate 2 08/29/25 08:00 BMI result Body Mass Index 33.5 <CECILE UrenaGraciela Funez Last Filed: 08/29/25 09:51> Const: General: comfortable, no acute distress and alert <Bettye Fiore PA-C [place] Last Filed: 08/29/25 09:51> Orientation/consciousness: patient oriented x3 <CECILE UrenaGraciela Funez Last Filed: 08/29/25 09:51> Resp: Other: appears slightly short of breath <CECILE Urena Dee Dee Last Filed: 08/29/25 09:51> Effort & Inspection: able to speak in complete sentences and tachypneic < CECILE Urena Dee Dee Last Filed: 08/29/25 09:51> GI: Other: protuberant abdomen soft <CECILE UrenaGraciela Funez Last Filed: 08/29/25 09:51> Neuro: General: patient oriented x3 and moves all extremities <CECILE Urena Dee Dee Last Filed: 08/29/25 09:51> Extrem: Other: please see photos of b/l LE on note from [facility], hydrant setter. bilateral lower extremities with edema, erythema and thickened skin extending from 1-2cm inferior to knee to just proximal to malleolus with significant scaling of the skin throughout; has satelitte lesions extending proximally surrounded by areas of excoriation; hair loss through out area <CECILE Urena Dee Dee Last Filed: 08/29/25 09:51> Results Labs Result diagrams: 08/31/25 08:05 08/31/25 08:05 <CECILE Urena Dee Dee Last Filed: 08/29/25 09:51> Labs: Abnormal lab results 08/28/25 08/28/25 08/28/25 Range/Units 11:55 12:11 14:00 Hgb 13.9 L (14.0-18.0) g/dl Hct (42.0-52.0) % MCV 78.3 L (80.0-98.0) fL MCH 25.3 L (27.0-33.0) pg Lymph % (Auto) 11.7 L (20-40) % Eos % (Auto) 10.8 H (0-4) % Lymph # (Auto) 1.1 L (1.2-4.9) X10*3/uL Eos # (Auto) 1.1 H (0.0-0.4) X10*3/uL Abs Immat Gran (auto) 0.04 H (0.00-0.03) X10*3/uL Chloride (96-108) mmol/L Carbon Dioxide (22-29) mmol/L BUN 23 H (9-16) mg/dL POC Glucose 301 H (60-115) mg/dL Random Glucose 332 H (60-115) mg/dL Hemoglobin A1c % (<6.0) % Alkaline Phosphatase 123 H (39-117) U/L C-Reactive Protein 4.50 H (< or = 0.50) mg/dL NT-Pro-B Natriuret Pep (<300) pg/mL Total Protein 6.4 L (6.5-8.0) g/dL Urine Protein 300 (3+) H (Neg-Trace) mg/dL Urine Glucose (UA) >=1000 H (Negative) mg/dL Urine Blood Trace H (Negative) 08/28/25 08/28/25 08/29/25 Range/Units 15:26 23:04 06:03 Hgb 13.7 L (14.0-18.0) g/dl Hct 41.7 L (42.0-52.0) % MCV 77.5 L (80.0-98.0) fL MCH 25.5 L (27.0-33.0) pg Lymph % (Auto) (20-40) % Eos % (Auto) (0-4) % Lymph # (Auto) (1.2-4.9) X10*3/uL Eos # (Auto) (0.0-0.4) X10*3/uL Abs Immat Gran (auto) (0.00-0.03) X10*3/uL Chloride 109 H (96-108) mmol/L Carbon Dioxide 21 L (22-29) mmol/L BUN 23 H (9-16) mg/dL POC Glucose 368 H* (60-115) mg/dL Random Glucose 178 H (60-115) mg/dL Hemoglobin A1c % 11.6 H (<6.0) % Alkaline Phosphatase (39-117) U/L C-Reactive Protein (< or = 0.50) mg/dL NT-Pro-B Natriuret Pep 5215.6 H (<300) pg/mL Total Protein (6.5-8.0) g/dL Urine Protein (Neg-Trace) mg/dL Urine Glucose (UA) (Negative) mg/dL Urine Blood (Negative) 08/29/25 Range/Units 07:35 Hgb (14.0-18.0) g/dl Hct (42.0-52.0) % MCV (80.0-98.0) fL MCH (27.0-33.0) pg Lymph % (Auto) (20-40) % Eos % (Auto) (0-4) % Lymph # (Auto) (1.2-4.9) X10*3/uL Eos # (Auto) (0.0-0.4) X10*3/uL Abs Immat Gran (auto) (0.00-0.03) X10*3/uL Chloride (96-108) mmol/L Carbon Dioxide (22-29) mmol/L BUN (9-16) mg/dL POC Glucose 187 H (60-115) mg/dL Random Glucose (60-115) mg/dL Hemoglobin A1c % (<6.0) % Alkaline Phosphatase (39-117) U/L C-Reactive Protein (< or = 0.50) mg/dL NT-Pro-B Natriuret Pep (<300) pg/mL Total Protein (6.5-8.0) g/dL Urine Protein (Neg-Trace) mg/dL Urine Glucose (UA) (Negative) mg/dL Urine Blood (Negative) Short CBC 08/28/25 08/29/25 Range/Units 11:55 06:03 WBC 9.8 9.7 (4.8-10.8) X10*3/uL Hgb 13.9 L 13.7 L (14.0-18.0) g/dl Hct 43.0 41.7 L (42.0-52.0) % Plt Count 264 257 (160-400) X10*3/uL BMP 08/28/25 08/29/25 08/29/25 11:55 06:03 06:03 Sodium 136 138 Potassium 4.2 3.9 Chloride 105 109 H Carbon Dioxide 23 21 L BUN 23 H 23 H Creatinine 1.21 1.32 1.34 Calcium 8.8 8.7 Liver Function 08/28/25 Range/Units 11:55 Total Bilirubin 0.6 (0.0-1.0) mg/dL AST 16 (5-37) U/L ALT 18 (0-40) U/L Alkaline Phosphatase 123 H (39-117) U/L Albumin 3.5 (3.5-5.0) g/dL Urine 08/28/25 Range/Units 12:11 Urine Color Yellow Urine Appearance Clear Urine pH 5.5 (5.0-9.0) Ur Specific [place] 1.020 (1.005-1.025) Urine Protein 300 (3+) H (Neg-Trace) mg/dL Urine Glucose (UA) >=1000 H (Negative) mg/dL All other labs normal. <Bettye Fiore PA-C - Last Filed: 08/29/25 09:51> Assessment and Plan (1) Open wound of left lower extremity: Status: Acute <Bettye Fiore PA-C - Last Filed: 08/29/25 09:51> 85-year-old male with PMH significant for HFpEF, CAD, COPD unspecified, CABG, HTN, paroxysmal a fib, type 2 diabetes on insulin and CKD 3 with chronic LE wounds admitted for cellulitis, uncontrolled DM. Overall his lower extremities have changes consistent with chronic venous stasis with likely superimposed yeast infection. He has a significant of thick, scaly skin overlying the area but no visible deep ulcers or wounds. Discussed with [facility], hydrant setter and agree with moistening the area to try to rid of the overlying scaling epidermis. She recommended ammonium lactate cream which has been ordered. Also ordered miconazole ointment for the yeast infection. Dressing change to the area BID with application of the above noted cream/ointment followed by abd dressings, dangelolix. Further recommendations as per wound care. As noted, there does not seem to be any deep wounds but the xray does recommend MRI to further assess. Will defer imaging to ID recommendations and primary team. No current surgical intervention necessary. We discussed his lower extremities need good daily wound care and he would benefit from VNA and outpatient wound care referral, as well as better POC control. Cont b/l lower extremity elevation to reduce edema. <Bettye Fiore PA-C - Last Filed: 08/29/25 09:51> 85-year-old male with PMH significant for HFpEF, CAD, COPD unspecified, CABG, HTN, paroxysmal a fib, type 2 diabetes on insulin and CKD 3 with chronic LE wounds admitted for cellulitis, uncontrolled DM. Overall his lower extremities have changes consistent with chronic venous stasis with likely superimposed yeast infection. He has a significant of thick, scaly skin overlying the area but no visible deep ulcers or wounds. Discussed with [facility], hydrant setter and agree with moistening the area to try to rid of the overlying scaling epidermis. She recommended ammonium lactate cream which has been ordered. Also ordered miconazole ointment for the yeast infection. Dressing change to the area BID with application of the above noted cream/ointment followed by abd dressings, kerlix. Further recommendations as per wound care. As noted, there does not seem to be any deep wounds but the xray does recommend MRI to further assess. Will defer imaging to ID recommendations and primary team. No current surgical intervention necessary. We discussed his lower extremities need good daily wound care and he would benefit from VNA and outpatient wound care referral, as well as better POC control. Cont b/l lower extremity elevation to reduce edema. Pt seen and examined - he has not been taking good care of himself and leg has wounds and dry skin - some degree of venous stasis - agree with above plan to restore hydration and remove dry sacles with ammonium lactate cream. Pt can be a good candidate for coban dressings as outpt. <Aissatou Mac MD - Last Filed: 08/31/25 20:40> Procedures Date of Service Date of Service: 08/29/25 <Bettye Fiore PA-C - Last Filed: 08/29/25 09:51> 08/31/25 <Aissatou Mac MD - Last Filed: 08/31/25 20:40>
[2025-08-29] MEDS: Insulin Glargine,Hum.rec.anlog 100 UNIT/ML 10 ML VIAL 10 UNIT SUBCUT (08:51)
[2025-08-29] MEDS: 0.9 % Sodium Chloride Flush 3 ML SYRINGE IVFLUSH ×2 (08:56→17:12)
[2025-08-29 11:40] LABS: Glucose, Whole Blood 336 mg/dL (60-115)
--- NOTE | 2025-08-29 15:22 | HO.WOUND ---
Wound Consult: Initial 85yr old?[place] [facility] [place] See progress notes and H&P for detailed history.? Wound consult placed for Bilateral Lateral Lower Legs.? Patient agreeable to assessment and photo documentation.? Patient denies having VNA to his home to care for his wounds he reports he has not been proving care to his wounds which is consistent with the assessment there is alot of dry dried drainage and animal hair noted to the lower legs. The patient denies going to out pt wound clinic is agreeable to referral however I suspect transportation there would be challenging. Bilateral Lower Lateral Leg Etiology: Venous wound??Present on Admission Measurements:various sizes difficult to measure due to difficulty assessing actual wound bed vs thickened skin and drainage Wound Bed: pink moist wound bed Drainage / Odor: dried drainage no dressing and dried crusted drainage to wound edge with cat hair per patient statement Edges: ?irregular Ryann wound: 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 ?red pink erythema and evidence of prior swelling noted No Induration, Fluctuance or Warmth noted Pain: denies Goals of Treatment: ? Elevate, Ammonium lactate and xeroform to soften thickened tissue Recommendations: 1. Turn and Reposition every 2 hours and as needed for patient comfort.? Use pillows or wedges to support off loading positions. 2. Off Load all bony prominences with use of pillows and heel boots if needed.? Apply Preventative foams where needed. ? 3. Monitor for incontinence and moisture control, use barrier creams when needed for prevention and treatment. 4. Provide adequate and supplemental nutrition.? 5. Order low air loss mattress. 6. When applicable maintain blood glucose levels per Providers order. Bilateral Lower Lateral Leg - Elevate lower legs off of surface of bed with use of pillows.? Cleanse with NS, Pat dry.? Apply Ammonium lactate lotion to both legs, apply layer of Miconazole cream and to open areas apply xeroform secure with ABD pad, gauze wrap and tape.? Change Daily. Re-consult wound care Nurse for wound deterioration or wound changes.
--- NOTE | 2025-08-29 15:53 | P.PNIM_ITS ---
Subjective Subjective Date of Service: 08/29/25 Interval History: Wound consulted - appreciate their input ID consulted PT consulted Surgery consulted No leukocytosis No acute overnight events Review of Systems Review of Systems: Yes all other systems are reviewed and are negative Physical Exam 2 Exam: Exam: General: AOx3, very hard of hearing Resp: CTA bilaterally CVS: S1, S2, RRR GI: +BS, NT, no distention Skin: see from wound care notes below Wounds : Bilateral Lower Lateral Leg Etiology: Venous wound Present on Admission Measurements:various sizes difficult to measure due to difficulty assessing actual wound bed vs thickened skin and drainage Wound Bed: pink moist wound bed Drainage / Odor: dried drainage no dressing and dried crusted drainage to wound edge with cat hair per patient statement Edges: irregular Ryann wound: 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 red pink erythema and evidence of prior swelling noted No Induration, Fluctuance or Warmth noted Vital Signs: Vital Signs: Last Vital Signs Temp 98.9 F 08/29/25 08:00 Pulse 87 08/29/25 08:00 Resp 20 08/29/25 08:00 BP 148/81 H 08/29/25 08:00 Pulse Ox 91 L 08/29/25 08:00 O2 Del Method Aerosol Mask 08/29/25 08:00 O2 Flow Rate 2 08/29/25 08:00 BMI result Body Mass Index 33.5 Const: General: comfortable, no acute distress and alert O rientation/consciousness: patient oriented x3 Resp: Other: appears slightly short of breath Effort & Inspection: able to speak in complete sentences and tachypneic GI: Other: protuberant abdomen soft Neuro: General: patient oriented x3 and moves all extremities Extrem: Other: please see photos of b/l FRANCISCA on note from [employer] auditor. bilateral lower extremities with edema, erythema and thickened skin extending from 1-2cm inferior to knee to just proximal to malleolus with significant scaling of the skin throughout; has satelitte lesions extending proximally surrounded by areas of excoriation; hair loss through out area Objective Data Active Medications Acetaminophen (Acetaminophen 325 Mg Tablet) 650 mg PO Q6H PRN PRN Reason: Pain, Mild 1-3,fever,headache Amlodipine Besylate (Amlodipine Besylate 10 Mg Tablet) 10 mg PO DAILY [facility]; Protocol Last Admin: 08/29/25 08:51 Dose: 10 mg Documented By: JOSE R Calcium Carbonate (Calcium Carbonate 750 Mg Tab.Chew) 750 mg PO Q4H PRN PRN Reason: Heartburn Clopidogrel Bisulfate (Clopidogrel Bisulfate 75 Mg Tablet) 75 mg PO DAILY [facility] Last Admin: 08/29/25 08:51 Dose: 75 mg Documented By: JOSE R Cyanocobalamin (Cyanocobalamin (Vitamin B-12) 1,000 Mcg Tablet) 1,000 mcg PO DAILY [facility] Last Admin: 08/29/25 08:51 Dose: 1,000 mcg Documented By: JOSE R Dextrose (Dextrose 50 % 25 Gm/50 Ml Syringe) 25 gm IVPUSH Q15M PRN; Protocol PRN Reason: per Hypoglycemia Standing Ord. Furosemide (Furosemide 40 Mg Tablet) 40 mg PO DAILY [facility]; Protocol Last Admin: 08/29/25 08:51 Dose: 40 mg Documented By: JOSE R Glucose (Glucose Gel 15 Gm Gel..Gram.) 15 gm PO Q15M PRN; Protocol PRN Reason: per Hypoglycemia Standing Ord. Heparin Sodium (Porcine) (Heparin Sodium,Porcine 5,000 Unit/Ml Vial) 5,000 unit SUBCUT Q12H [facility] Last Admin: 08/29/25 04:05 Dose: 5,000 unit Documented By: LAITH Vancomycin HCl 1,250 mg/ (Sodium Chloride) 250 mls @ 166.667 mls/hr IV Q24H [facility] Last Admin: 08/29/25 15:15 Dose: 166.67 mls/hr Documented By: JOSE R Insulin Glargine (Insulin Glargine,Hum.Rec.Anlog 100 Unit/Ml 10 Ml Vial) 10 unit SUBCUT DAILY [facility] Last Admin: 08/29/25 08:51 Dose: 10 unit Documented By: JOSE R Insulin Human Lispro (Insulin Lispro 100 Unit/Ml 3 Ml Vial) 0 unit SUBCUT QIDACHS [facility]; Protocol Last Admin: 08/29/25 12:58 Dose: 8 unit Documented By: JOSE R Lactic Acid (Ammonium Lactate 12 % Cream 140 Gm Tube) 1 appl TOPICAL BID [facility]; Protocol Last Admin: 08/29/25 12:55 Dose: Not Given Documented By: JOSE R Non-Admin Reason: Previously Administered Losartan Potassium (Losartan Potassium 50 Mg Tablet) 100 mg PO DAILY [facility]; Protocol Last Admin: 08/29/25 08:52 Dose: 100 mg Documented By: JOSE R Magnesium Hydroxide (Milk Of Magnesia 30 Ml Oral.Susp) 30 ml PO DAILY PRN PRN Reason: Constipation Melatonin (Melatonin 3 Mg Tablet) 6 mg PO BEDTIME PRN PRN Reason: Insomnia Miconazole Nitrate (Miconazole Nitrate 2% Oint 57 Gm Oint...G.) 1 appl TOPICAL BID [facility]; Protocol Last Admin: 08/29/25 12:55 Dose: Not Given Documented By: JOSE R Non-Admin Reason: Previously Administered Ondansetron HCl (Ondansetron Hcl 4 Mg/2 Ml Vial) 4 mg IVPUSH Q8H PRN PRN Reason: Nausea and Vomiting Pharmacy Consult (Consult Rx Vancomycin Dosing) 1 each MISCELLANE DAILY PRN PRN Reason: Consult order Senna (Sennosides 8.6 Mg Tablet) 8.6 mg PO BEDTIME PRN PRN Reason: Constipation Sodium Chloride (0.9 % Sodium Chloride Flush 3 Ml Syringe) 3 ml IVFLUSH QSHIFT [facility] Last Admin: 08/29/25 08:56 Dose: 3 ml Documented By: JOSE R Labs 08/29/25 06:03 08/29/25 06:03 Labs: Laboratory Results - last 24 hr 08/28/25 08/28/25 08/29/25 15:26 23:04 06:03 MCV 77.5 L MCH 25.5 L MCHC 32.9 RDW 14.2 Plt Count 257 MPV 9.8 Absolute Nucleated RBC 0.000 Nucleated RBC % (auto) 0.0 Anion Gap 12 Estim Creat Clear Calc 49.2 Estimated GFR POC Glucose 368 H* Random Glucose Calcium NT-Pro-B Natriuret Pep 5215.6 H 08/29/25 08/29/25 08/29/25 06:03 06:03 07:35 MCV MCH MCHC RDW Plt Count MPV Absolute Nucleated RBC Nucleated RBC % (auto) Anion Gap Estim Creat Clear Calc 48.5 Estimated GFR 52 51 POC Glucose 187 H Random Glucose 178 H Calcium 8.7 NT-Pro-B Natriuret Pep 08/29/25 11:29 MCV MCH MCHC RDW Plt Count MPV Absolute Nucleated RBC Nucleated RBC % (auto) Anion Gap Estim Creat Clear Calc Estimated GFR POC Glucose 336 H Random Glucose Calcium NT-Pro-B Natriuret Pep Microbiology Microbiology Results: Microbiology 08/28/25 11:55 Blood Culture - Preliminary Blood - Venous No growth after 24 hours. 08/28/25 11:55 Blood Culture - Preliminary Blood - Venous No growth after 24 hours. Assessment and Plan (1) Diabetic leg ulcer: Status: Acute Assessment and Plan: 85-year-old male with PMH significant for HFpEF, CAD, COPD unspecified, CABG, HTN, paroxysmal a fib, type 2 diabetes (A1c 11.6) and CKD 3, history of lower extremity wounds who presented to the ED with worsening appearance of wounds associated with foul-smelling drainage per EMR. 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 (please refer to the wound care pics) ?OM Start Doxycycline, Switch to po vanc F/up sepsis workup Xray not equivocal - need MRI to r/o OM could be chronic venous stasis ulcers ammonium lactate cream Approve wound care input VNA Usg to r/o DVT appreciate surgery consult -signed off Appreciate ID input [id number] SSI DM diet Deconditioning PT STR vs VNA HFpEF HTN s/p CABG CAD- Cont home regimen Tele Paroxysmal Afib - EKG , tele, and r/o DVT with usg imaging b/l feet COPD - not in flare- cont home meds CKD3 not having PETER on CKD3 daily labs DVT px with Heparin PT input needed - pt reports no one to care for him and deconditioning This note is constructed using voice recognition software. While every effort has been made to ensure accuracy, obiee obia solution architect errors may have been included. Quality Stroke Does the patient have a stroke diagnosis?: No VTE Prior VTE?: No VTE Risk Level:: Medical - moderate - high VTE Device Contraindication: Treatment Not Indicated VTE Drug Contraindication: N/A - Med Ordered
[2025-08-29 16:00] VITALS: BP 133/79; PULSE 80; RESP 18; TEMP 36.8; O2SAT 93
[2025-08-29 16:47] LABS: Glucose, Whole Blood 278 mg/dL (60-115)
--- NOTE | 2025-08-29 19:13 | W.PM.IDCN ---
History of Present Illness Data of Consult Service Date: 08/28/25 Requesting physician: Ирина Aaron Primary Care Provider: SYED Rubi HPI Reason for consult: bilateral itchy scaly leg complaints He presents to hospital with bilateral leg scaliness and itching and HCP saw picture apparently showed concern over worsening leg wounds. He has no fever or chills. There is no leukocytosis and ESR is 10. He has been seeing Wound Care. Review of Systems Review of Systems: Yes all other systems are reviewed and are negative COUNT INCLUDES [facility] Past Medical History Medical History Type 2 diabetes mellitus without complications Paroxysmal A-fib Congestive heart failure CKD (chronic kidney disease) Type 2 diabetes mellitus Coronary artery disease Family History Family history: reviewed and not pertinent Surgical History Surgical History Hx of CABG Social History Social History Household Members: Significant Other Housing: House Do you presently have visiting nurse or other home services: No Alcohol intake: unknown Patient Tobacco Use Status: Former Tobacco user e-Cigarette/Vaping Use: Former Use Currently Displaying Signs/Symptoms of Drug Intoxication Withdrawal: No Have you been hit, kicked, punched, or otherwise hurt by someone within the past year? If so, by whom?: No Do you feel safe in your current relationship?: Yes Is there a partner from a previous relationship who is making you feel unsafe now?: No Are you made to feel afraid or neglected: No Advance Directives: Yes Advance Directives on File: Yes Advance Directives Date on File: 07/07/24 Do you have a plan to hurt others: No Plan Recently lost weight without trying: No How much weight loss: Not applicable Eating poorly because of decreased appetite: No Nutrition screen score: 0 Nutrition Risks: No Nutritional Risk Poor oral hygiene: No service: Yes Meds Allergies Allergy/AdvReac Type Severity Reaction Status Date / Time hydrochlorothiazide Allergy Unknown Unknown Verified 08/28/25 11:16 Active Medications: Current Medications Acetaminophen (Acetaminophen 325 Mg Tablet) 650 mg PO Q6H PRN PRN Reason: Pain, Mild 1-3,fever,headache Amlodipine Besylate (Amlodipine Besylate 10 Mg Tablet) 10 mg PO DAILY [facility]; Protocol Last Admin: 08/29/25 08:51 Dose: 10 mg Calcium Carbonate (Calcium Carbonate 750 Mg Tab.Chew) 750 mg PO Q4H PRN PRN Reason: Heartburn Clopidogrel Bisulfate (Clopidogrel Bisulfate 75 Mg Tablet) 75 mg PO DAILY [facility] Last Admin: 08/29/25 08:51 Dose: 75 mg Cyanocobalamin (Cyanocobalamin (Vitamin B-12) 1,000 Mcg Tablet) 1,000 mcg PO DAILY [facility] Last Admin: 08/29/25 08:51 Dose: 1,000 mcg Dextrose (Dextrose 50 % 25 Gm/50 Ml Syringe) 25 gm IVPUSH Q15M PRN; Protocol PRN Reason: per Hypoglycemia Standing Ord. Furosemide (Furosemide 40 Mg Tablet) 40 mg PO DAILY [facility]; Protocol Last Admin: 08/29/25 08:51 Dose: 40 mg Glucose (Glucose Gel 15 Gm Gel..Gram.) 15 gm PO Q15M PRN; Protocol PRN Reason: per Hypoglycemia Standing Ord. Heparin Sodium (Porcine) (Heparin Sodium,Porcine 5,000 Unit/Ml Vial) 5,000 unit SUBCUT Q12H [facility] Last Admin: 08/29/25 17:11 Dose: 5,000 unit Vancomycin HCl 1,250 mg/ (Sodium Chloride) 250 mls @ 166.667 mls/hr IV Q24H [facility] Insulin Glargine (Insulin Glargine,Hum.Rec.Anlog 100 Unit/Ml 10 Ml Vial) 10 unit SUBCUT DAILY [facility] Last Admin: 08/29/25 08:51 Dose: 10 unit Insulin Human Lispro (Insulin Lispro 100 Unit/Ml 3 Ml Vial) 0 unit SUBCUT QIDACHS [facility]; Protocol Last Admin: 08/29/25 17:11 Dose: 6 unit Lactic Acid (Ammonium Lactate 12 % Cream 140 Gm Tube) 1 appl TOPICAL BID [facility]; Protocol Last Admin: 08/29/25 12:55 Dose: Not Given Losartan Potassium (Losartan Potassium 50 Mg Tablet) 100 mg PO DAILY [facility]; Protocol Last Admin: 08/29/25 08:52 Dose: 100 mg Magnesium Hydroxide (Milk Of Magnesia 30 Ml Oral.Susp) 30 ml PO DAILY PRN PRN Reason: Constipation Melatonin (Melatonin 3 Mg Tablet) 6 mg PO BEDTIME PRN PRN Reason: Insomnia Miconazole Nitrate (Miconazole Nitrate 2% Oint 57 Gm Oint...G.) 1 appl TOPICAL BID [facility]; Protocol Last Admin: 08/29/25 12:55 Dose: Not Given Ondansetron HCl (Ondansetron Hcl 4 Mg/2 Ml Vial) 4 mg IVPUSH Q8H PRN PRN Reason: Nausea and Vomiting Pharmacy Consult (Consult Rx Vancomycin Dosing) 1 each MISCELLANE DAILY PRN PRN Reason: Consult order Senna (Sennosides 8.6 Mg Tablet) 8.6 mg PO BEDTIME PRN PRN Reason: Constipation Sodium Chloride (0.9 % Sodium Chloride Flush 3 Ml Syringe) 3 ml IVFLUSH QSHIFT [facility] Last Admin: 08/29/25 17:12 Dose: 3 ml Home Medications ?Medication ?Instructions ?Recorded ?Confirmed ?Last Taken ?Type amlodipine 10 mg tablet 10 mg PO DAILY 07/04/24 08/28/25 12/23/24 08:07 History clopidogrel 75 mg tablet 75 mg PO DAILY 07/04/24 08/28/25 12/23/24 09:00 History insulin glargine-yfgn 100 unit/mL 10 unit subcut DAILY 07/04/24 08/28/25 12/23/24 08:08 History (3 mL) subcutaneous pen losartan 100 mg tablet 100 mg PO DAILY 07/04/24 08/28/25 12/23/24 08:07 History sennosides 8.6 mg tablet (senna) 8.6 mg PO BEDTIME PRN Constipation 07/04/24 08/28/25 12/22/24 20:00 History cyanocobalamin (vitamin B-12) 1,000 mcg PO DAILY 03/16/25 08/28/25 Unknown History 1,000 mcg tablet Physical Exam Vital Signs: Vital Signs: Last Vital Signs Temp 98.2 F 08/29/25 16:00 Pulse 80 08/29/25 16:00 Resp 18 08/29/25 16:00 BP 133/79 08/29/25 16:00 Pulse Ox 93 08/29/25 16:00 O2 Del Method Room Air 08/29/25 16:00 O2 Flow Rate 2 08/29/25 08:00 BMI result Body Mass Index 33.5 Const: General: cooperative HEENT: Head: Yes normal to inspection Face and sinus: Yes normal facial exam Mouth: Normal oral and palatal mucosa present Teeth and gingiva: dentition normal Eyes: General: appearance normal, both eyes and all related structures Pupils: Equal, round and reactive pupils present Resp: Effort & Inspection: normal respiratory effort Cardio: Rate: regular rate Rhythm: regular rhythm GI: Palpation (GI): Soft to palpation and nontender : General: Yes no CVA tenderness Back/Spine/Pelvis: Back: no CVA tenderness Skin: General skin exam: no rashes or lesions noted Neuro: General: moves all extremities Cranial nerves: Yes Equal, round and reactive pupils present Extrem: Other: left more than right leg thickened skin,left slight serous drainage area not hot pulses present Psych: Appearance: grossly normal Results Labs 08/29/25 06:03 08/29/25 06:03 Labs: Short CBC 08/29/25 Range/Units 06:03 WBC 9.7 (4.8-10.8) X10*3/uL Hgb 13.7 L (14.0-18.0) g/dl Hct 41.7 L (42.0-52.0) % Plt Count 257 (160-400) X10*3/uL BMP 08/29/25 08/29/25 06:03 06:03 Sodium 138 Potassium 3.9 Chloride 109 H Carbon Dioxide 21 L BUN 23 H Creatinine 1.32 1.34 Calcium 8.7 Microbiology Microbiology Results: Microbiology 08/28/25 11:55 Blood - Venous Blood Culture - Preliminary No growth after 24 hours. 08/28/25 11:55 Blood - Venous Blood Culture - Preliminary No growth after 24 hours. Assessment and Plan (1) Open wound of left lower extremity: Status: Acute Plan These are ulcers he has had for intermediate. The XRay shows lateral right fibula equivocal finding ?haziness bone. I agree with excellent Surgical note to treat with for venous stasis and yeast infection There is no leukocytosis or fever and ESR is only 10 so no cellulitis and doubt OM but have to check MRI because of XR finding could have chronic old OM benefit from treatment. Please dont order WBC scan. If no OM suspected po Doxycycline for 10 days and topical antifungals.
--- NOTE | 2025-08-29 19:23 | PM.EVENT ---
Event Note Date of Service: 08/29/25 Event Note: continue Vancomycin until final on MRI Time Spent With Patient Time: Total time managing care of this patient today ____ minutes.
[2025-08-29 20:00] VITALS: BP 157/81; PULSE 70; RESP 18; TEMP 36.8; O2SAT 94
[2025-08-29 20:23] LABS: Troponin-I High Sensitivity 45.9 ng/L (<3.5-35.0)
[2025-08-29 21:11] LABS: Glucose, Whole Blood 227 mg/dL (60-115)
[2025-08-29 21:39] LABS: Appearance Urine Clear; Glucose Urine UA 500 mg/dL (Negative); PH 5.5 (5.0-9.0); Specific Gravity - Urine 1.015 (1.005-1.025); UMIC TRIGGER UACC YES
--- NOTE | 2025-08-30 | ECG_ITS ---
Test Reason : Aflutter Blood Pressure : */* mmHG Vent. Rate : 108 BPM Atrial Rate : 64 BPM P-R Int : 186 ms QRS Dur : 90 ms QT Int : 344 ms P-R-T Axes : 119 -42 -55 degrees QTcB Int : 460 ms Poor data quality, interpretation may be adversely affected Undetermined rhythm Left axis deviation Pulmonary disease pattern ST elevation consider lateral injury or acute infarct ACUTE [place] / STEMI Abnormal ECG When compared with ECG of 30-Aug-2025 01:17, Significant changes have occurred Referred By: Dixie Butler Electronically Signed By:
[2025-08-30] MEDS: 0.9 % Sodium Chloride Flush 3 ML SYRINGE IVFLUSH ×4 (01:20→21:26)
--- NOTE | 2025-08-30 03:31 | PC.NURSE ---
0330 c calls to report that pt has tele leads disconnected. When entering the room the pt has taken off the tele monitor leads and is yelling and swearing saying I dont want this shit on me, im not keeping it on education provided and pt then refuses tele monitor again. SYED Smith notified
[2025-08-30 03:39] VITALS: BP 165/79; PULSE 98; RESP 20; TEMP 37.2; O2SAT 94
--- NOTE | 2025-08-30 04:17 | PM.EVENT ---
Event Note Date of Service: 08/30/25 Event Note: pt became very agitated, ripped off tele leads and nasal canula, refusing to wear. O2 dropped to 88%, pt placed on oxymask and calmed down. still refusing tele. pt seen bedside, appears anxious, increased RR, lungs CTA. denies SOB or chest pain. states he feels fine. ordered 0.5mg PO ativan to help with restlessness, agitation and increased RR. O2 back to baseline at 94%. Time Spent With Patient Time: Total time managing care of this patient today ____ minutes.
[2025-08-30 06:25] LABS: MANUAL DIFF FLAG NO
[2025-08-30 06:36] LABS: Hematocrit 42.7 % (42.0-52.0); Hemoglobin 13.7 g/dl (14.0-18.0); Imm Gran Abs Auto 0.04 X10*3/uL (0.00-0.03); Imm Gran Pct Auto 0.4 % (0.0-0.4); Lymphocytes Absolute Auto 1.2 X10*3/uL (1.2-4.9); Mean Corpuscular HGB Conc 32.1 g/dl (31.0-36.0); Mean Corpuscular Hemoglobin 25.2 pg (27.0-33.0); Mean Corpuscular Volume 78.5 fL (80.0-98.0); NRBC Abs Auto 0.000 X10*3/uL (0.0-0.012); NRBC Pct Auto 0.0 /100WBC (0.0-0.2); Platelet Count 250 X10*3/uL (160-400); Red Blood Count 5.44 X10*6/uL (4.60-5.80); White Blood Count 11.0 X10*3/uL (4.8-10.8)
[2025-08-30 06:42] LABS: INTERNATIONAL NORM RATIO 1.1 (0.9-1.1); Prothrombin Time 13.6 SEC (11.2-13.5)
[2025-08-30 06:47] LABS: Alanine Aminotransferase 16 U/L (0-40); Albumin Level 3.1 g/dL (3.5-5.0); Alkaline Phosphatase 81 U/L (39-117); Anion Gap 15 (12-20); Aspartate Amino Transferase 24 U/L (5-37); Blood Urea Nitrogen 22 mg/dL (9-16); Calcium 8.4 mg/dL (8.4-10.2); Carbon Dioxide 18 mmol/L (22-29); Chloride 108 mmol/L (96-108); Creatinine Clr Calc Pharmacy 49.6; Estimated Glomerular Filt Rate 52; Magnesium 1.6 mg/dL (1.6-2.6); Potassium 4.1 mmol/L (3.3-5.1); Sodium 137 mmol/L (135-145); Total Protein 6.1 g/dL (6.5-8.0)
--- NOTE | 2025-08-30 07:17 | P.PNIM_ITS ---
Subjective Subjective Date of Service: 08/30/25 Interval History: Patient was agitated overnight Per ON: pt became very agitated, ripped off tele leads and nasal canula, refusing to wear. O2 dropped to 88%, pt placed on oxymask and calmed down. still refusing tele. pt seen bedside, appears anxious, increased RR, lungs CTA. denies SOB or chest pain. states he feels fine. ordered 0.5mg PO ativan to help with restlessness, agitation and increased RR. O2 back to baseline at 94%. Repeat EKG - aflutter, echo ordered, started him on Eliquis 2.5 b.i.d. Review of Systems Review of Systems: Yes all other systems are reviewed and are negative Physical Exam 2 Exam: Exam: General: AOx3, very hard of hearing Resp: CTA bilaterally CVS: S1, S2, RRR GI: +BS, NT, no distention Skin: see from wound care notes below Wounds : Bilateral Lower Lateral Leg Etiology: Venous wound Present on Admission Measurements:various sizes difficult to measure due to difficulty assessing actual wound bed vs thickened skin and drainage Wound Bed: pink moist wound bed Drainage / Odor: dried drainage no dressing and dried crusted drainage to wound edge with cat hair per patient statement Edges: irregular Ryann wound: 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 red pink erythema and evidence of prior swelling noted No Induration, Fluctuance or Warmth noted Vital Signs: Vital Signs: Last Vital Signs Temp 98.9 F 08/30/25 03:39 Pulse 98 08/30/25 03:39 Resp 20 08/30/25 03:39 BP 165/79 H 08/30/25 03:39 Pulse Ox 94 08/30/25 03:39 O2 Del Method Oxymask 08/30/25 03:39 O2 Flow Rate 6 08/30/25 03:39 BMI result Body Mass Index 33.5 Const: General: comfortable, no acute distress and alert O rientation/consciousness: patient oriented x3 Resp: Other: appears slightly short of breath Effort & Inspection: able to speak in complete sentences and tachypneic GI: Other: protuberant abdomen soft Neuro: General: patient oriented x3 and moves all extremities Extrem: Other: please see photos of b/l FRANCISCA 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 bilateral lower extremities with edema, erythema and thickened skin extending from 1-2cm inferior to knee to just proximal to malleolus with significant scaling of the skin throughout; has satelitte lesions extending proximally surrounded by areas of excoriation; hair loss through out area Objective Data Active Medications Acetaminophen (Acetaminophen 325 Mg Tablet) 650 mg PO Q6H PRN PRN Reason: Pain, Mild 1-3,fever,headache Amlodipine Besylate (Amlodipine Besylate 10 Mg Tablet) 10 mg PO DAILY [facility]; Protocol Last Admin: 08/29/25 08:51 Dose: 10 mg Documented By: JOSE R Calcium Carbonate (Calcium Carbonate 750 Mg Tab.Chew) 750 mg PO Q4H PRN PRN Reason: Heartburn Clopidogrel Bisulfate (Clopidogrel Bisulfate 75 Mg Tablet) 75 mg PO DAILY [facility] Last Admin: 08/29/25 08:51 Dose: 75 mg Documented By: JOSE R Cyanocobalamin (Cyanocobalamin (Vitamin B-12) 1,000 Mcg Tablet) 1,000 mcg PO DAILY [facility] Last Admin: 08/29/25 08:51 Dose: 1,000 mcg Documented By: JOSE R Dextrose (Dextrose 50 % 25 Gm/50 Ml Syringe) 25 gm IVPUSH Q15M PRN; Protocol PRN Reason: per Hypoglycemia Standing Ord. Doxycycline Monohydrate (Doxycycline Monohydrate 100 Mg Capsule) 100 mg PO Q12H [facility] Last Admin: 08/29/25 20:53 Dose: 100 mg Documented By: JENNIFER Furosemide (Furosemide 40 Mg Tablet) 40 mg PO DAILY [facility]; Protocol Last Admin: 08/29/25 08:51 Dose: 40 mg Documented By: JOSE R Glucose (Glucose Gel 15 Gm Gel..Gram.) 15 gm PO Q15M PRN; Protocol PRN Reason: per Hypoglycemia Standing Ord. Heparin Sodium (Porcine) (Heparin Sodium,Porcine 5,000 Unit/Ml Vial) 5,000 unit SUBCUT Q12H [facility] Last Admin: 08/30/25 04:15 Dose: Not Given Documented By: JENNIFER Non-Admin Reason: pt refused, education provided Vancomycin HCl 1,250 mg/ (Sodium Chloride) 250 mls @ 166.667 mls/hr IV Q24H [facility] Insulin Glargine (Insulin Glargine,Hum.Rec.Anlog 100 Unit/Ml 10 Ml Vial) 10 unit SUBCUT DAILY [facility] Last Admin: 12/02/25 08:51 Dose: 10 unit Documented By: JOSE R Insulin Human Lispro (Insulin Lispro 100 Unit/Ml 3 Ml Vial) 0 unit SUBCUT QIDACHS [facility]; Protocol Last Admin: 08/29/25 22:37 Dose: 4 unit Documented By: JENNIFER Lactic Acid (Ammonium Lactate 12 % Cream 140 Gm Tube) 1 appl TOPICAL BID [facility]; Protocol Last Admin: 08/29/25 22:38 Dose: 1 appl Documented By: JENNIFER Losartan Potassium (Losartan Potassium 50 Mg Tablet) 100 mg PO DAILY [facility]; Protocol Last Admin: 08/29/25 08:52 Dose: 100 mg Documented By: JOSE R Magnesium Hydroxide (Milk Of Magnesia 30 Ml Oral.Susp) 30 ml PO DAILY PRN PRN Reason: Constipation Melatonin (Melatonin 3 Mg Tablet) 6 mg PO BEDTIME PRN PRN Reason: Insomnia Miconazole Nitrate (Miconazole Nitrate 2% Oint 57 Gm Oint...G.) 1 appl TOPICAL BID [facility]; Protocol Last Admin: 08/29/25 22:38 Dose: 1 appl Documented By: JENNIFER Ondansetron HCl (Ondansetron Hcl 4 Mg/2 Ml Vial) 4 mg IVPUSH Q8H PRN PRN Reason: Nausea and Vomiting Pharmacy Consult (Consult Rx Vancomycin Dosing) 1 each MISCELLANE DAILY PRN PRN Reason: Consult order Senna (Sennosides 8.6 Mg Tablet) 8.6 mg PO BEDTIME PRN PRN Reason: Constipation Sodium Chloride (0.9 % Sodium Chloride Flush 3 Ml Syringe) 3 ml IVFLUSH QSHIFT [facility] Last Admin: 08/30/25 01:20 Dose: 3 ml Documented By: JENNIFER Labs 08/30/25 06:13 08/30/25 06:13 Labs: Laboratory Results - last 24 hr 08/29/25 08/29/25 08/29/25 06:03 06:03 06:03 MCV MCH MCHC RDW Plt Count MPV Immature Gran % (Auto) Neut % (Auto) Lymph % (Auto) [place] % (Auto) Eos % (Auto) Baso % (Auto) Lymph # (Auto) [place] # (Auto) Eos # (Auto) Baso # (Auto) Abs Immat Gran (auto) Absolute Neuts (auto) Absolute Nucleated RBC Nucleated RBC % (auto) PT INR Anion Gap 12 Estim Creat Clear Calc 49.2 48.5 Estimated GFR 52 51 POC Glucose Random Glucose 178 H Calcium 8.7 Magnesium Total Bilirubin AST ALT Alkaline Phosphatase Troponin I High Sens Total Protein Albumin Urine Color Urine Appearance Urine pH Ur Specific [place] Urine Protein Urine Glucose (UA) Urine Ketones Urine Blood Urine Nitrite Ur Leukocyte Esterase Urine RBC Urine WBC Ur Squamous Epith Cells Urine Bacteria Hyaline Casts 08/29/25 08/29/25 08/29/25 07:35 11:29 16:39 MCV MCH MCHC RDW Plt Count MPV Immature Gran % (Auto) Neut % (Auto) Lymph % (Auto) [place] % (Auto) Eos % (Auto) Baso % (Auto) Lymph # (Auto) [place] # (Auto) Eos # (Auto) Baso # (Auto) Abs Immat Gran (auto) Absolute Neuts (auto) Absolute Nucleated RBC Nucleated RBC % (auto) PT INR Anion Gap Estim Creat Clear Calc Estimated GFR POC Glucose 187 H 336 H 278 H Random Glucose Calcium Magnesium Total Bilirubin AST ALT Alkaline Phosphatase Troponin I High Sens Total Protein Albumin Urine Color Urine Appearance Urine pH Ur Specific [place] Urine Protein Urine Glucose (UA) Urine Ketones Urine Blood Urine Nitrite Ur Leukocyte Esterase Urine RBC Urine WBC Ur Squamous Epith Cells Urine Bacteria Hyaline Casts 08/29/25 08/29/25 08/29/25 19:58 21:07 21:30 MCV MCH MCHC RDW Plt Count MPV Immature Gran % (Auto) Neut % (Auto) Lymph % (Auto) [place] % (Auto) Eos % (Auto) Baso % (Auto) Lymph # (Auto) [place] # (Auto) Eos # (Auto) Baso # (Auto) Abs Immat Gran (auto) Absolute Neuts (auto) Absolute Nucleated RBC Nucleated RBC % (auto) PT INR Anion Gap Estim Creat Clear Calc Estimated GFR POC Glucose 227 H Random Glucose Calcium Magnesium Total Bilirubin AST ALT Alkaline Phosphatase Troponin I High Sens 45.9 H D Total Protein Albumin Urine Color Yellow Urine Appearance Clear Urine pH 5.5 Ur Specific [place] 1.015 Urine Protein 300 (3+) H Urine Glucose (UA) 500 H Urine Ketones Negative Urine Blood Trace H Urine Nitrite Negative Ur Leukocyte Esterase Negative Urine RBC 0-2 Urine WBC 0-5 Ur Squamous Epith Cells 0-2 Urine Bacteria None Seen Hyaline Casts 0-2 08/29/25 08/30/25 22:33 06:13 MCV 78.5 L MCH 25.2 L MCHC 32.1 RDW 14.3 Plt Count 250 MPV 9.8 Immature Gran % (Auto) 0.4 Neut % (Auto) 74.2 H Lymph % (Auto) 10.4 L [place] % (Auto) 9.7 Eos % (Auto) 4.4 H Baso % (Auto) 0.9 Lymph # (Auto) 1.2 [place] # (Auto) 1.1 Eos # (Auto) 0.5 H Baso # (Auto) 0.1 Abs Immat Gran (auto) 0.04 H Absolute Neuts (auto) 8.2 Absolute Nucleated RBC 0.000 Nucleated RBC % (auto) 0.0 PT 13.6 H INR 1.1 Anion Gap 15 Estim Creat Clear Calc 49.6 Estimated GFR 52 POC Glucose 230 H Random Glucose 186 H Calcium 8.4 Magnesium 1.6 Total Bilirubin 0.7 AST 24 ALT 16 Alkaline Phosphatase 81 Troponin I High Sens Total Protein 6.1 L Albumin 3.1 L Urine Color Urine Appearance Urine pH Ur Specific [place] Urine Protein Urine Glucose (UA) Urine Ketones Urine Blood Urine Nitrite Ur Leukocyte Esterase Urine RBC Urine WBC Ur Squamous Epith Cells Urine Bacteria Hyaline Casts Microbiology Microbiology Results: Microbiology 08/28/25 11:55 Blood Culture - Preliminary Blood - Venous No growth after 24 hours. 08/28/25 11:55 Blood Culture - Preliminary Blood - Venous No growth after 24 hours. Assessment and Plan (1) Diabetic leg ulcer: Status: Acute Assessment and Plan: 85-year-old male with PMH significant for HFpEF, CAD, COPD unspecified, CABG, HTN, paroxysmal a fib, type 2 diabetes (A1c 11.6) and CKD 3, history of lower extremity wounds who presented to the ED with worsening appearance of wounds associated with foul-smelling drainage per EMR. 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 (please refer to the wound care pics) Unsure about acute versus chronic osteomyelitis X-rays not equivocal, ID, surgery, Wound Care consulted-deemed necessary to have right leg and foot MRI to rule out chronic osteomyelitis Continue doxycycline 10 day course empirically, DC IV vanc F/up sepsis workup could be chronic venous stasis ulcers ammonium lactate cream Appreciate wound care input VNA Usg to r/o DVT appreciate surgery consult -signed off Appreciate ID input #Atrial flutter #HFpEF #HTN #s/p CABG #CAD- #Paroxysmal Afib - Diagnosed on POA EKG- TTE ordered as prior TTE a year ago Poor historian at baseline normal unknown chronicity Initiate Eliquis 2.5 b.i.d. Patient high fall risk educated about #DM2 A1c 11.6 SSI DM diet #Deconditioning PT STR vs VNA #COPD - not in flare- cont home meds #CKD3 Inititae lasix 40 po bid not having PETER on CKD3 daily labs # delirium precautions #DVT px with Heparin PT input needed - pt reports no one to care for him and deconditioned -deferred today as the pt was noted to have Aflutter This note is constructed using voice recognition software. While every effort has been made to ensure accuracy, disability rater errors may have been included. Quality Stroke Does the patient have a stroke diagnosis?: No VTE Prior VTE?: No VTE Risk Level:: Medical - moderate - high VTE Device Contraindication: Treatment Not Indicated VTE Drug Contraindication: N/A - Med Ordered
[2025-08-30 07:39] LABS: Glucose, Whole Blood 178 mg/dL (60-115)
[2025-08-30 07:56] VITALS: BP 142/84; PULSE 83; RESP 20; TEMP 36.9; O2SAT 93
--- NOTE | 2025-08-30 08:31 | P.PNGS_ITS ---
Subjective Subjective Date of Service: 08/30/25 Interval history: No new complaints No fever overnight Admits to getting short of breath easily Physical Exam 2 Vital Signs: Vital Signs: Last Vital Signs Temp 98.4 F 08/30/25 07:56 Pulse 83 08/30/25 07:56 Resp 20 08/30/25 07:56 BP 142/84 H 08/30/25 07:56 Pulse Ox 93 08/30/25 07:56 O2 Del Method Oxymask 08/30/25 07:56 O2 Flow Rate 4 08/30/25 07:56 BMI result Body Mass Index 33.5 Const: Other: Mildly short of breath, obese, frail looking General: no acute distress Resp: Other: Mildly short of breath Cardio: Rate: regular rate GI: Palpation (GI): Soft to palpation Extrem: Other: Bilateral lower extremity edema, with scaling/desquamation of the skin, no obvious ulceration, significant dryness of the skin noted, no purulent discharge, no fluctuance or induration Objective Data Active Medications Acetaminophen (Acetaminophen 325 Mg Tablet) 650 mg PO Q6H PRN PRN Reason: Pain, Mild 1-3,fever,headache Amlodipine Besylate (Amlodipine Besylate 10 Mg Tablet) 10 mg PO DAILY [facility]; Protocol Last Admin: 08/29/25 08:51 Dose: 10 mg Documented By: JOSE R Calcium Carbonate (Calcium Carbonate 750 Mg Tab.Chew) 750 mg PO Q4H PRN PRN Reason: Heartburn Clopidogrel Bisulfate (Clopidogrel Bisulfate 75 Mg Tablet) 75 mg PO DAILY [facility] Last Admin: 08/29/25 08:51 Dose: 75 mg Documented By: JOSE R Cyanocobalamin (Cyanocobalamin (Vitamin B-12) 1,000 Mcg Tablet) 1,000 mcg PO DAILY [facility] Last Admin: 08/29/25 08:51 Dose: 1,000 mcg Documented By: JOSE R Dextrose (Dextrose 50 % 25 Gm/50 Ml Syringe) 25 gm IVPUSH Q15M PRN; Protocol PRN Reason: per Hypoglycemia Standing Ord. Doxycycline Monohydrate (Doxycycline Monohydrate 100 Mg Capsule) 100 mg PO Q12H [facility] Last Admin: 08/30/25 07:53 Dose: 100 mg Documented By: CHARLIE Furosemide (Furosemide 40 Mg Tablet) 40 mg PO DAILY [facility]; Protocol Last Admin: 08/29/25 08:51 Dose: 40 mg Documented By: JOSE R Glucose (Glucose Gel 15 Gm Gel..Gram.) 15 gm PO Q15M PRN; Protocol PRN Reason: per Hypoglycemia Standing Ord. Heparin Sodium (Porcine) (Heparin Sodium,Porcine 5,000 Unit/Ml Vial) 5,000 unit SUBCUT Q12H [facility] Last Admin: 08/30/25 04:15 Dose: Not Given Documented By: JENNIFER Non-Admin Reason: pt refused, education provided Vancomycin HCl 1,250 mg/ (Sodium Chloride) 250 mls @ 166.667 mls/hr IV Q24H [facility] Insulin Glargine (Insulin Glargine,Hum.Rec.Anlog 100 Unit/Ml 10 Ml Vial) 10 unit SUBCUT DAILY [facility] Last Admin: 08/29/25 08:51 Dose: 10 unit Documented By: JOSE R Insulin Human Lispro (Insulin Lispro 100 Unit/Ml 3 Ml Vial) 0 unit SUBCUT QIDACHS [facility]; Protocol Last Admin: 08/30/25 07:54 Dose: 2 unit Documented By: CHARLIE Lactic Acid (Ammonium Lactate 12 % Cream 140 Gm Tube) 1 appl TOPICAL BID [facility]; Protocol Last Admin: 08/29/25 22:38 Dose: 1 appl Documented By: JENNIFER Losartan Potassium (Losartan Potassium 50 Mg Tablet) 100 mg PO DAILY [facility]; Protocol Last Admin: 08/29/25 08:52 Dose: 100 mg Documented By: JOSE R Magnesium Hydroxide (Milk Of Magnesia 30 Ml Oral.Susp) 30 ml PO DAILY PRN PRN Reason: Constipation Melatonin (Melatonin 3 Mg Tablet) 6 mg PO BEDTIME PRN PRN Reason: Insomnia Miconazole Nitrate (Miconazole Nitrate 2% Oint 57 Gm Oint...G.) 1 appl TOPICAL BID [facility]; Protocol Last Admin: 08/29/25 22:38 Dose: 1 appl Documented By: JENNIFER Ondansetron HCl (Ondansetron Hcl 4 Mg/2 Ml Vial) 4 mg IVPUSH Q8H PRN PRN Reason: Nausea and Vomiting Pharmacy Consult (Consult Rx Vancomycin Dosing) 1 each MISCELLANE DAILY PRN PRN Reason: Consult order Senna (Sennosides 8.6 Mg Tablet) 8.6 mg PO BEDTIME PRN PRN Reason: Constipation Sodium Chloride (0.9 % Sodium Chloride Flush 3 Ml Syringe) 3 ml IVFLUSH QSHIFT [facility] Last Admin: 08/30/25 07:54 Dose: 3 ml Documented By: CHARLIE Labs 08/30/25 06:13 08/30/25 06:13 Labs: Laboratory Results - last 24 hr 08/29/25 08/29/25 08/29/25 11:29 16:39 19:58 MCV MCH MCHC RDW Plt Count MPV Immature Gran % (Auto) Neut % (Auto) Lymph % (Auto) [place] % (Auto) Eos % (Auto) Baso % (Auto) Lymph # (Auto) [place] # (Auto) Eos # (Auto) Baso # (Auto) Abs Immat Gran (auto) Absolute Neuts (auto) Absolute Nucleated RBC Nucleated RBC % (auto) PT INR Anion Gap Estim Creat Clear Calc Estimated GFR POC Glucose 336 H 278 H Random Glucose Calcium Magnesium Total Bilirubin AST ALT Alkaline Phosphatase Troponin I High Sens 45.9 H D Total Protein Albumin Urine Color Urine Appearance Urine pH Ur Specific [place] Urine Protein Urine Glucose (UA) Urine Ketones Urine Blood Urine Nitrite Ur Leukocyte Esterase Urine RBC Urine WBC Ur Squamous Epith Cells Urine Bacteria Hyaline Casts 08/29/25 08/29/25 08/29/25 21:07 21:30 22:33 MCV MCH MCHC RDW Plt Count MPV Immature Gran % (Auto) Neut % (Auto) Lymph % (Auto) [place] % (Auto) Eos % (Auto) Baso % (Auto) Lymph # (Auto) [place] # (Auto) Eos # (Auto) Baso # (Auto) Abs Immat Gran (auto) Absolute Neuts (auto) Absolute Nucleated RBC Nucleated RBC % (auto) PT INR Anion Gap Estim Creat Clear Calc Estimated GFR POC Glucose 227 H 230 H Random Glucose Calcium Magnesium Total Bilirubin AST ALT Alkaline Phosphatase Troponin I High Sens Total Protein Albumin Urine Color Yellow Urine Appearance Clear Urine pH 5.5 Ur Specific [place] 1.015 Urine Protein 300 (3+) H Urine Glucose (UA) 500 H Urine Ketones Negative Urine Blood Trace H Urine Nitrite Negative Ur Leukocyte Esterase Negative Urine RBC 0-2 Urine WBC 0-5 Ur Squamous Epith Cells 0-2 Urine Bacteria None Seen Hyaline Casts 0-2 08/30/25 08/30/25 06:13 07:32 MCV 78.5 L MCH 25.2 L MCHC 32.1 RDW 14.3 Plt Count 250 MPV 9.8 Immature Gran % (Auto) 0.4 Neut % (Auto) 74.2 H Lymph % (Auto) 10.4 L [place] % (Auto) 9.7 Eos % (Auto) 4.4 H Baso % (Auto) 0.9 Lymph # (Auto) 1.2 [place] # (Auto) 1.1 Eos # (Auto) 0.5 H Baso # (Auto) 0.1 Abs Immat Gran (auto) 0.04 H Absolute Neuts (auto) 8.2 Absolute Nucleated RBC 0.000 Nucleated RBC % (auto) 0.0 PT 13.6 H INR 1.1 Anion Gap 15 Estim Creat Clear Calc 49.6 Estimated GFR 52 POC Glucose 178 H Random Glucose 186 H Calcium 8.4 Magnesium 1.6 Total Bilirubin 0.7 AST 24 ALT 16 Alkaline Phosphatase 81 Troponin I High Sens Total Protein 6.1 L Albumin 3.1 L Urine Color Urine Appearance Urine pH Ur Specific [place] Urine Protein Urine Glucose (UA) Urine Ketones Urine Blood Urine Nitrite Ur Leukocyte Esterase Urine RBC Urine WBC Ur Squamous Epith Cells Urine Bacteria Hyaline Casts Microbiology Microbiology Results: Microbiology 08/28/25 11:55 Blood Culture - Preliminary Blood - Venous No growth after 24 hours. 08/28/25 11:55 Blood Culture - Preliminary Blood - Venous No growth after 24 hours. Procedures Date of Service Date of Service: 08/30/25 Progress Note: A&P Assessment and plan (1) Lower extremity edema: Status: Acute Assessment and Plan: With stasis changes No need for any debridement or I&D Has significant desquamation and dryness Leg elevation when in bed Recommendations as per Wound Care Service No surgical intervention at this time Time Spent With Patient Time: Total time managing care of this patient today ____ minutes. Quality Stroke Does the patient have a stroke diagnosis?: No VTE Prior VTE?: No VTE Risk Level:: Medical - moderate - high VTE Device Contraindication: Treatment Not Indicated VTE Drug Contraindication: N/A - Med Ordered
[2025-08-30] MEDS: Insulin Glargine,Hum.rec.anlog 100 UNIT/ML 10 ML VIAL 10 UNIT SUBCUT (09:14)
[2025-08-30] MEDS: Ammonium Lactate 12 % Cream 140 GM TUBE 1 APPL TOPICAL ×2 (09:15→21:29)
[2025-08-30 11:31] LABS: Glucose, Whole Blood 221 mg/dL (60-115)
--- NOTE | 2025-08-30 12:00 | CA_ITS ---
Transthoracic Echocardiogram Patient (Last, First, Middle): Phil Ledbetter, Gender: Male Date of : 1940 Age: 85 Procedure Date: 08/30/2025 Procedure Type: Transthoracic Echocardiogram Location: ER Height: 175.26 cm Weight: 102.51 kg BSA: 2.18 m2 Heart Rate: bpm BP: 142 / 84 mmHg Optometric Tech: KIRK Referring MD: Dixie Butler MD Symptoms: aFLUTTER Study Quality: Technically Difficult ECG Rhythm: Undetermined Conclusions: - The left ventricular systolic function is severely decreased. The calculated ejection fraction is 29% by biplane method. - There is moderate aortic valve stenosis. - A bioprosthetic mitral valve is present. The prosthetic mitral valve appears to be functioning normally. - Mild to moderate pulmonary hypertension is present. Findings Procedure Information Contrast agent, definity, is being given per protocol without apparent complications. Left Ventricle Normal left ventricular cavity size. There is normal left ventricular wall thickness. The left ventricular systolic function is severely decreased. The calculated ejection fraction is 29% by biplane method. Regional wall motion abnormalities can not be excluded due to suboptimal endocardial definition. Diastolic function is indeterminate on the basis of available data. Right Ventricle Moderately increased right ventricular cavity size. There is mild to moderately decreased right ventricular systolic function. Atria The left atrium is moderately dilated. The right atrium is normal in size. Aortic Valve There is severe calcification of the aortic valve. There is moderate aortic valve stenosis. There is no aortic valve regurgitation. Dimensionless index 0.34. Stroke volume index 18ml/m2. Mitral Valve A bioprosthetic mitral valve is present. The prosthetic mitral valve appears to be functioning normally. There is trace mitral valve regurgitation. Mean gradient across the mitral valve 7 mm Hg at 80/Min. Pulmonic Valve The pulmonic valve was not well visualized. Tricuspid Valve There is mild tricuspid valve regurgitation. Mild to moderate pulmonary hypertension is present. Great Vessels The aorta was not well visualized. Venous The inferior vena cava is mildly dilated and collapses greater than 50% with inspiration. Pericardium/Pleural There is no evidence of pericardial effusion. Prior Study Comparison Changes noted compared to prior study dated: 07/04/2024. Decrease in LVEF. Measurements 2D Linear Measurements IVSd: 0.97 0.6-0.9/0.6-1.0 cm LVIDd: 5.33 3.9-5.3/4.2-5.9 cm LVIDd Index: 2.44 2.4-3.2/2.2-3.1 cm/m2 LVIDs: 4.26 2.0-3.6 cm LVPWd: 1.23 0.7-1.1 cm LV Mass: 286.74 67-162/88-224 g LV Mass Index: 131.53 43-95/49-115 g/m2 LVOT Diam: 2.10 3.0+(-)1.3 cm 2D Systolic Function EF 4C: 38.00 >55% EF 2C: 18.70 >55% EF BiP: 28.80 >55% Mitral Valve MV VTI: 0.49 MV Pk Marty: 2.06 MV Mn Marty: 1.28 MV Pk Grad: 17.00 MV Mn Grad: 7.00 MV Pk E: 1.95 MV Decel Time: 341.00 E'Lateral: 3.90 E'Medial: 3.30 E/E' Med: 59.10 E/E' Lat: 50.00 PHT: 100.00 MVA PHT: 2.20 MVA Continuity: 0.84 Decel [place]: 5.72 Aortic Valve AoV Pk Marty: 1.86 AoV Mn Marty: 1.32 AoV VTI: 0.35 AoV Pk Grad: 14.00 Aov Mn Grad: 8.00 JOEL Cont.VTI: 1.17 LVOT LVOT Pk Marty: 0.64 LVOT Mn Marty: 0.43 LVOT VTI: 0.12 LVOT Pk Grad: 2.00 LVOT Mn Grad: 1.00 LVOT Diam: 2.10 LVOT Area: 3.46 Diastolic Function MV Pk E: 1.95 E'Medial: 3.30 E/E' Med: 59.10 E' Laterial: 3.90 E/E' Lat: 50.00 Right Ventricle TAPSE (mm): 15.80 TVS' Marty: 6.53 Tricuspid Valve TR Pk Marty: 3.20 TR Pk Grad: 41.00 RA Press: 8.00 RVSP: 49.00 Great Vessels Aorta Sinus of Valsalva: 3.44 2.0-3.5 cm Updated in Other Vendor System with Status of Final Chip Boogie MD electronically signed on 08/30/2025 3:47:26 PM with status of Final
--- NOTE | 2025-08-30 15:06 | MHC.CM.PN ---
Patient lives in a home w/ S.O. Reports he is independent w/ care and ambulates w/ a walker. Gets MOW. Previously active w/ [facility] for wound care, but says they haven't come in a while. BLE wounds not currently being cared for. PCP Forrest Marin MD @ [facility] on file and verified - [facility] is [facility]al. Thinks he is [facility] connected and has gone to STR under [facility] benefit in the past. LM for [place], [facility] interpretive program coordinator, to confirm. DP: STR vs home w/ VNA. No preference to SNF. Has been to [facility] in the past. Referral sent but they are unable to accept as patient left AMA last admission. Referral sent to [facility]. Awaiting PT eval. CM will continue to follow.
[2025-08-30 15:32] VITALS: BP 155/84; PULSE 82; RESP 18; TEMP 38.6; O2SAT 94
[2025-08-30 16:14] LABS: Glucose, Whole Blood 250 mg/dL (60-115)
[2025-08-30 17:28] VITALS: BP 172/85; PULSE 83; RESP 20; TEMP 36.4; O2SAT 94
[2025-08-30 19:45] VITALS: BP 143/76; PULSE 71; RESP 20; TEMP 36.3; O2SAT 92
[2025-08-30 20:55] LABS: Glucose, Whole Blood 286 mg/dL (60-115)
[2025-08-30] MEDS: Miconazole Nitrate 2% Oint 57 GM OINT...G. 1 APPL TOPICAL (21:29)
[2025-08-31 03:46] VITALS: BP 158/83; PULSE 80; RESP 18; TEMP 36.6; O2SAT 92
[2025-08-31 07:21] LABS: Glucose, Whole Blood 170 mg/dL (60-115)
[2025-08-31 07:25] VITALS: BP 165/82; PULSE 84; RESP 16; TEMP 36.4; O2SAT 93
[2025-08-31 08:16] LABS: MANUAL DIFF FLAG NO
[2025-08-31 08:23] LABS: Hematocrit 45.3 % (42.0-52.0); Hemoglobin 15.1 g/dl (14.0-18.0); Imm Gran Abs Auto 0.03 X10*3/uL (0.00-0.03); Imm Gran Pct Auto 0.3 % (0.0-0.4); Lymphocytes Absolute Auto 1.9 X10*3/uL (1.2-4.9); Mean Corpuscular HGB Conc 33.3 g/dl (31.0-36.0); Mean Corpuscular Hemoglobin 25.8 pg (27.0-33.0); Mean Corpuscular Volume 77.4 fL (80.0-98.0); NRBC Abs Auto 0.000 X10*3/uL (0.0-0.012); NRBC Pct Auto 0.0 /100WBC (0.0-0.2); Platelet Count 295 X10*3/uL (160-400); Red Blood Count 5.85 X10*6/uL (4.60-5.80); White Blood Count 10.8 X10*3/uL (4.8-10.8)
[2025-08-31 08:56] LABS: Alanine Aminotransferase 20 U/L (0-40); Albumin Level 3.6 g/dL (3.5-5.0); Alkaline Phosphatase 86 U/L (39-117); Anion Gap 16 (12-20); Aspartate Amino Transferase 27 U/L (5-37); Blood Urea Nitrogen 22 mg/dL (9-16); Calcium 8.9 mg/dL (8.4-10.2); Carbon Dioxide 22 mmol/L (22-29); Chloride 104 mmol/L (96-108); Creatinine Clr Calc Pharmacy 48.1; Estimated Glomerular Filt Rate 50; Magnesium 1.6 mg/dL (1.6-2.6); Potassium 3.8 mmol/L (3.3-5.1); Sodium 138 mmol/L (135-145); Total Protein 6.8 g/dL (6.5-8.0)
[2025-08-31] MEDS: Insulin Glargine,Hum.rec.anlog 100 UNIT/ML 10 ML VIAL 10 UNIT SUBCUT (09:04)
[2025-08-31] MEDS: Ammonium Lactate 12 % Cream 140 GM TUBE 1 APPL TOPICAL ×2 (09:08→21:01)
[2025-08-31] MEDS: 0.9 % Sodium Chloride Flush 3 ML SYRINGE IVFLUSH ×2 (09:08→16:42)
[2025-08-31] MEDS: Miconazole Nitrate 2% Oint 57 GM OINT...G. 1 APPL TOPICAL ×2 (09:08→21:01)
--- NOTE | 2025-08-31 10:25 | P.CONCA_ITS ---
History of Present Illness History of Present Illness Date of Service: 08/31/25 Chief complaint: Possible Osteomyelitis Narrative: This is a cardiology consultation regarding atrial flutter. Admitted as 89/cellulitis/possible osteomyelitis and uncontrolled diabetes. From the cardiac standpoint, it appears that he underwent mitral valve replacement in 2020 for severe mitral regurgitation. It isn't entirely clear if he has actually been following up with Cardiology. Currently, he is quite confused and he is not able to give any history whatsoever. He is not sure where he is. Per notes, atrial flutter was recognized on the EKG and hence we are consulted. Review of Systems 2 Review of Systems: Unable to obtain review of systems due to mental status. [facility] Past Medical History Medical History (Updated 08/31/25 @ 10:29 by Chip Boogie MD) Lower extremity edema Type 2 diabetes mellitus without complications Paroxysmal A-fib Congestive heart failure CKD (chronic kidney disease) Type 2 diabetes mellitus Coronary artery disease Family History Family history: reviewed and not pertinent Surgical History Surgical History Hx of CABG Social History Social History Household Members: Significant Other Housing: House Do you presently have visiting nurse or other home services: No Alcohol intake: unknown Patient Tobacco Use Status: Former Tobacco user e-Cigarette/Vaping Use: Former Use Currently Displaying Signs/Symptoms of Drug Intoxication Withdrawal: No Have you been hit, kicked, punched, or otherwise hurt by someone within the past year? If so, by whom?: No Do you feel safe in your current relationship?: Yes Is there a partner from a previous relationship who is making you feel unsafe now?: No Are you made to feel afraid or neglected: No Advance Directives: Yes Advance Directives on File: Yes Advance Directives Date on File: 07/07/24 Do you have a plan to hurt others: No Plan Recently lost weight without trying: No How much weight loss: Not applicable Eating poorly because of decreased appetite: No Nutrition screen score: 0 Nutrition Risks: No Nutritional Risk Poor oral hygiene: No service: No Meds Allergies Allergy/AdvReac Type Severity Reaction Status Date / Time hydrochlorothiazide Allergy Unknown Unknown Verified 08/28/25 11:16 Active Medications: Current Medications Acetaminophen (Acetaminophen 325 Mg Tablet) 650 mg PO Q6H PRN PRN Reason: Pain, Mild 1-3,fever,headache Amlodipine Besylate (Amlodipine Besylate 10 Mg Tablet) 10 mg PO DAILY [facility]; Protocol Last Admin: 08/31/25 09:02 Dose: 10 mg Apixaban (Apixaban 2.5 Mg Tablet) 2.5 mg PO BID [facility] Last Admin: 08/31/25 09:02 Dose: 2.5 mg Calcium Carbonate (Calcium Carbonate 750 Mg Tab.Chew) 750 mg PO Q4H PRN PRN Reason: Heartburn Clopidogrel Bisulfate (Clopidogrel Bisulfate 75 Mg Tablet) 75 mg PO DAILY [facility] Last Admin: 08/31/25 09:03 Dose: 75 mg Cyanocobalamin (Cyanocobalamin (Vitamin B-12) 1,000 Mcg Tablet) 1,000 mcg PO DAILY [facility] Last Admin: 08/31/25 09:03 Dose: 1,000 mcg Dextrose (Dextrose 50 % 25 Gm/50 Ml Syringe) 25 gm IVPUSH Q15M PRN; Protocol PRN Reason: per Hypoglycemia Standing Ord. Doxycycline Monohydrate (Doxycycline Monohydrate 100 Mg Capsule) 100 mg PO Q12H [facility] Last Admin: 08/31/25 09:02 Dose: 100 mg Furosemide (Furosemide 40 Mg Tablet) 40 mg PO BID@0900,1800 [facility]; Protocol Last Admin: 08/31/25 09:03 Dose: 40 mg Glucose (Glucose Gel 15 Gm Gel..Gram.) 15 gm PO Q15M PRN; Protocol PRN Reason: per Hypoglycemia Standing Ord. Heparin Sodium (Porcine) (Heparin Sodium,Porcine 5,000 Unit/Ml Vial) 5,000 unit SUBCUT Q12H [facility] Last Admin: 08/31/25 05:08 Dose: 5,000 unit Insulin Glargine (Insulin Glargine,Hum.Rec.Anlog 100 Unit/Ml 10 Ml Vial) 10 unit SUBCUT DAILY [facility] Last Admin: 08/31/25 09:04 Dose: 10 unit Insulin Human Lispro (Insulin Lispro 100 Unit/Ml 3 Ml Vial) 0 unit SUBCUT QIDACHS [facility]; Protocol Last Admin: 08/31/25 09:03 Dose: 2 unit Lactic Acid (Ammonium Lactate 12 % Cream 140 Gm Tube) 1 appl TOPICAL BID [facility]; Protocol Last Admin: 08/31/25 09:08 Dose: 1 appl Losartan Potassium (Losartan Potassium 50 Mg Tablet) 100 mg PO DAILY [facility]; Protocol Last Admin: 08/31/25 09:03 Dose: 100 mg Magnesium Hydroxide (Milk Of Magnesia 30 Ml Oral.Susp) 30 ml PO DAILY PRN PRN Reason: Constipation Melatonin (Melatonin 3 Mg Tablet) 6 mg PO BEDTIME PRN PRN Reason: Insomnia Miconazole Nitrate (Miconazole Nitrate 2% Oint 57 Gm Oint...G.) 1 appl TOPICAL BID [facility]; Protocol Last Admin: 08/31/25 09:08 Dose: 1 appl Ondansetron HCl (Ondansetron Hcl 4 Mg/2 Ml Vial) 4 mg IVPUSH Q8H PRN PRN Reason: Nausea and Vomiting Senna (Sennosides 8.6 Mg Tablet) 8.6 mg PO BEDTIME PRN PRN Reason: Constipation Sodium Chloride (0.9 % Sodium Chloride Flush 3 Ml Syringe) [facility] Last Admin: 08/31/25 09:08 Dose: 3 ml Home Medications ?Medication ?Instructions ?Recorded ?Confirmed ?Last Taken ?Type amlodipine 10 mg tablet 10 mg PO DAILY 07/04/2410/2212/23/24 08:07 History clopidogrel 75 mg tablet 75 mg PO DAILY 07/04/2410/2212/23/24 09:00 History insulin glargine-yfgn 100 unit/mL 10 unit subcut DAILY 07/04/24 08/28/25 12/23/24 08:08 History (3 mL) subcutaneous pen losartan 100 mg tablet 100 mg PO DAILY 07/04/2410/2212/23/24 08:07 History sennosides 8.6 mg tablet (senna) 8.6 mg PO BEDTIME PRN Constipation 07/04/24 08/28/25 12/22/24 20:00 History cyanocobalamin (vitamin B-12) 1,000 mcg PO DAILY 03/1608/28/25 Unknown History 1,000 mcg tablet Physical Exam 2 Vital Signs: Vital Signs: Last Vital Signs Temp 97.5 F 08/31/25 07:25 Pulse 84 08/31/25 07:25 Resp 16 08/31/25 07:25 BP 165/82 H 08/31/25 07:25 Pulse Ox 93 08/31/25 07:25 O2 Del Method Room Air 08/31/25 07:25 O2 Flow Rate 4 08/30/25 15:32 BMI result Body Mass Index 33.5 Const: General: comfortable and no acute distress O rientation/consciousness: No patient oriented x3 HEENT: Other: Unremarkable Head: Yes normal to inspection Neck: Neck: Yes normal visual inspection Chest: Chest palpation & inspection: normal inspection of the chest Resp: Auscultation: clear to auscultation bilaterally Cardio: Palpation: normal PMI Heart sounds: S1 normal heart sound present, S2 normal heart sound present, no gallops, no murmurs and no rubs GI: Palpation (GI): Soft to palpation Back/Spine/Pelvis: Other: unremarkable Skin: General skin exam: no rashes or lesions noted Neuro: General: No patient oriented x3 Extrem: General: Yes normal to inspection Psych: Mental Status: mental status grossly abnormal Objective Labs and Meds 08/31/25 08:05 08/31/25 08:05 Lab results: Laboratory Results - last 24 hr 08/30/25 08/30/25 08/30/25 11:13 16:09 16:57 WBC RBC Hgb Hct MCV MCH MCHC RDW Plt Count MPV Immature Gran % (Auto) Neut % (Auto) Lymph % (Auto) [place] % (Auto) Eos % (Auto) Baso % (Auto) Lymph # (Auto) [place] # (Auto) Eos # (Auto) Baso # (Auto) Abs Immat Gran (auto) Absolute Neuts (auto) Absolute Nucleated RBC Nucleated RBC % (auto) Sodium Potassium Chloride Carbon Dioxide Anion Gap BUN Creatinine Estim Creat Clear Calc Estimated GFR POC Glucose 221 H 250 H Random Glucose Calcium Magnesium Total Bilirubin AST ALT Alkaline Phosphatase Total Protein Albumin Vancomycin Trough 9.2 L 08/30/25 08/31/25 08/31/25 20:50 06:58 08:05 WBC 10.8 RBC 5.85 H Hgb 15.1 Hct 45.3 MCV 77.4 L MCH 25.8 L MCHC 33.3 RDW 14.1 Plt Count 295 MPV 9.8 Immature Gran % (Auto) 0.3 Neut % (Auto) 63.4 Lymph % (Auto) 17.1 L [place] % (Auto) 10.3 Eos % (Auto) 8.1 H Baso % (Auto) 0.8 Lymph # (Auto) 1.9 [place] # (Auto) 1.1 Eos # (Auto) 0.9 H Baso # (Auto) 0.1 Abs Immat Gran (auto) 0.03 Absolute Neuts (auto) 6.9 Absolute Nucleated RBC 0.000 Nucleated RBC % (auto) 0.0 Sodium 138 Potassium 3.8 Chloride 104 Carbon Dioxide 22 Anion Gap 16 BUN 22 H Creatinine 1.35 Estim Creat Clear Calc 48.1 Estimated GFR 50 POC Glucose 286 H 170 H Random Glucose 159 H Calcium 8.9 Magnesium 1.6 Total Bilirubin 0.8 AST 27 ALT 20 Alkaline Phosphatase 86 Total Protein 6.8 Albumin 3.6 Vancomycin Trough ECG Interpretation: EKG shows atrial flutter at a rate of 71/Min. Also seen in May but prior to that, seems sinus rhythm. Assessment and Plan (1) Atrial flutter: Status: Acute (2) Cardiomyopathy: Status: Acute (3) Nonrheumatic aortic (valve) stenosis: Status: Acute Plan In the echocardiogram, LVEF 29%. Moderate aortic stenosis. Normally functioning bioprosthetic aortic valve. Pulmonary hypertension. EKG/telemetry show atrial flutter with controlled rate. Clinically, not able to assess as he is confused. As the ventricular rate is already well controlled, no need for additional rate control agents. He is on Eliquis for anticoagulation but can use the 5 mg b.i.d. dose. May not need concurrent Plavix. Not a candidate for cardioversion or other aggressive care in the current state. Procedures Date of Service Date of Service: 08/31/25
--- NOTE | 2025-08-31 11:25 | MHC.CM.PN ---
[facility], CM has faxed H&P & PT Eval to her at [phone].Patient does have benefits through [facility].
[2025-08-31 11:26] LABS: Glucose, Whole Blood 228 mg/dL (60-115)
--- NOTE | 2025-08-31 13:25 | HO.PM.IMPN ---
Subjective Subjective Date of Service: 08/31/25 Interval History: seen and examined this morning follow up for foot wounds plan for MRI today no complaints Review of Systems Review of Systems: Yes all other systems are reviewed and are negative Constitutional Constitutional: Denies fever(s) Cardiovascular Cardiovascular: Denies chest pain Gastrointestinal Gastrointestinal: Denies abdominal pain Physical Exam Vital Signs: Vital Signs: Last Vital Signs Temp 97.5 F 08/31/25 07:25 Pulse 84 08/31/25 07:25 Resp 16 08/31/25 07:25 BP 165/82 H 08/31/25 07:25 Pulse Ox 93 08/31/25 07:25 O2 Del Method Room Air 08/31/25 07:25 O2 Flow Rate 4 08/30/25 15:32 BMI result Body Mass Index 33.5 Const: General: cooperative, comfortable, no acute distress, alert and awake Nutritional Appearance: overweight Orientation/consciousness: oriented to person GI: Inspection: No distended Palpation (GI): Soft to palpation and nontender Neuro: Other: grossly non-focal General: oriented to person Objective Data Active Medications Acetaminophen (Acetaminophen 325 Mg Tablet) 650 mg PO Q6H PRN PRN Reason: Pain, Mild 1-3,fever,headache Amlodipine Besylate (Amlodipine Besylate 10 Mg Tablet) 10 mg PO DAILY [facility]; Protocol Last Admin: 08/31/25 09:02 Dose: 10 mg Documented By: FAUSTO Apixaban (Apixaban 2.5 Mg Tablet) 2.5 mg PO BID [facility] Last Admin: 08/31/25 09:02 Dose: 2.5 mg Documented By: FAUSTO Calcium Carbonate (Calcium Carbonate 750 Mg Tab.Chew) 750 mg PO Q4H PRN PRN Reason: Heartburn Clopidogrel Bisulfate (Clopidogrel Bisulfate 75 Mg Tablet) 75 mg PO DAILY [facility] Last Admin: 08/31/25 09:03 Dose: 75 mg Documented By: FAUSTO Cyanocobalamin (Cyanocobalamin (Vitamin B-12) 1,000 Mcg Tablet) 1,000 mcg PO DAILY [facility] Last Admin: 08/31/25 09:03 Dose: 1,000 mcg Documented By: FAUSTO Dextrose (Dextrose 50 % 25 Gm/50 Ml Syringe) 25 gm IVPUSH Q15M PRN; Protocol PRN Reason: per Hypoglycemia Standing Ord. Doxycycline Monohydrate (Doxycycline Monohydrate 100 Mg Capsule) 100 mg PO Q12H [facility] Last Admin: 08/31/25 09:02 Dose: 100 mg Documented By: FAUSTO Furosemide (Furosemide 40 Mg Tablet) 40 mg PO BID@0900,1800 [facility]; Protocol Last Admin: 08/31/25 09:03 Dose: 40 mg Documented By: FAUSTO Glucose (Glucose Gel 15 Gm Gel..Gram.) 15 gm PO Q15M PRN; Protocol PRN Reason: per Hypoglycemia Standing Ord. Heparin Sodium (Porcine) (Heparin Sodium,Porcine 5,000 Unit/Ml Vial) 5,000 unit SUBCUT Q12H [facility] Last Admin: 08/31/25 05:08 Dose: 5,000 unit Documented By: ANTOIC Insulin Glargine (Insulin Glargine,Hum.Rec.Anlog 100 Unit/Ml 10 Ml Vial) 10 unit SUBCUT DAILY [facility] Last Admin: 08/31/25 09:04 Dose: 10 unit Documented By: FAUSTO Insulin Human Lispro (Insulin Lispro 100 Unit/Ml 3 Ml Vial) 0 unit SUBCUT QIDACHS [facility]; Protocol Last Admin: 08/31/25 12:09 Dose: 4 unit Documented By: FAUSTO Lactic Acid (Ammonium Lactate 12 % Cream 140 Gm Tube) 1 appl TOPICAL BID [facility]; Protocol Last Admin: 08/31/25 09:08 Dose: 1 appl Documented By: FAUSTO Losartan Potassium (Losartan Potassium 50 Mg Tablet) 100 mg PO DAILY [facility]; Protocol Last Admin: 08/31/25 09:03 Dose: 100 mg Documented By: FAUSTO Magnesium Hydroxide (Milk Of Magnesia 30 Ml Oral.Susp) 30 ml PO DAILY PRN PRN Reason: Constipation Melatonin (Melatonin 3 Mg Tablet) 6 mg PO BEDTIME PRN PRN Reason: Insomnia Miconazole Nitrate (Miconazole Nitrate 2% Oint 57 Gm Oint...G.) 1 appl TOPICAL BID [facility]; Protocol Last Admin: 08/31/25 09:08 Dose: 1 appl Documented By: FAUSTO Ondansetron HCl (Ondansetron Hcl 4 Mg/2 Ml Vial) 4 mg IVPUSH Q8H PRN PRN Reason: Nausea and Vomiting Senna (Sennosides 8.6 Mg Tablet) 8.6 mg PO BEDTIME PRN PRN Reason: Constipation Sodium Chloride (0.9 % Sodium Chloride Flush 3 Ml Syringe) 3 ml IVFLUSH QSHIFT [facility] Last Admin: 08/31/25 09:08 Dose: 3 ml Documented By: FAUSTO Labs 08/31/25 08:05 08/31/25 08:05 Labs: Laboratory Results - last 24 hr 08/30/25 08/30/25 08/30/25 16:09 16:57 20:50 MCV MCH MCHC RDW Plt Count MPV Immature Gran % (Auto) Neut % (Auto) Lymph % (Auto) [place] % (Auto) Eos % (Auto) Baso % (Auto) Lymph # (Auto) [place] # (Auto) Eos # (Auto) Baso # (Auto) Abs Immat Gran (auto) Absolute Neuts (auto) Absolute Nucleated RBC Nucleated RBC % (auto) Anion Gap Estim Creat Clear Calc Estimated GFR POC Glucose 250 H 286 H Random Glucose Calcium Magnesium Total Bilirubin AST ALT Alkaline Phosphatase Total Protein Albumin Vancomycin Trough 9.2 L 08/31/25 08/31/25 08/31/25 06:58 08:05 10:51 MCV 77.4 L MCH 25.8 L MCHC 33.3 RDW 14.1 Plt Count 295 MPV 9.8 Immature Gran % (Auto) 0.3 Neut % (Auto) 63.4 Lymph % (Auto) 17.1 L [place] % (Auto) 10.3 Eos % (Auto) 8.1 H Baso % (Auto) 0.8 Lymph # (Auto) 1.9 [place] # (Auto) 1.1 Eos # (Auto) 0.9 H Baso # (Auto) 0.1 Abs Immat Gran (auto) 0.03 Absolute Neuts (auto) 6.9 Absolute Nucleated RBC 0.000 Nucleated RBC % (auto) 0.0 Anion Gap 16 Estim Creat Clear Calc 48.1 Estimated GFR 50 POC Glucose 170 H 228 H Random Glucose 159 H Calcium 8.9 Magnesium 1.6 Total Bilirubin 0.8 AST 27 ALT 20 Alkaline Phosphatase 86 Total Protein 6.8 Albumin 3.6 Vancomycin Trough Microbiology Microbiology Results: Microbiology 08/28/25 11:55 Blood Culture - Preliminary Blood - Venous No growth after 48 hours. 08/28/25 11:55 Blood Culture - Preliminary Blood - Venous No growth after 48 hours. Assessment and Plan (1) Cellulitis: Status: Acute Plan This is an 85 year old male with history of HFpEF, CAD, COPD unspecified, CABG, HTN, paroxysmal a fib, type 2 diabetes on insulin and CKD 3, bioprosthetic aortic valve, h/o left [employer] CVA who presented with worsening lower extremity wounds with concern for osteomyelitis chronic b/l LE nonhealing leg ulcers due to uncontrolle DM concern for osteomyelitis plan for MRI wound care following - see wound care note for details US negative for DVT seen by ID, will continue po doxy for now, if osteo, change to IV vanco seen by general surgery - no surgical intervention recommended Uncontrolled diabetes mellitus 2 hba1c 11.6 continue Lantus ss, ada diet Hypertension continue norvasc CKD 3 renal function at baseline h/o Paroxysmal atrial fibrillation now in aflutter upon review on notes from [facility] - 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 Due to high risk of hemorrhagic conversion with strokes with mycotic aneurysm his coumadin was discontinued. He was placed on plavix and asa at that time. unclear if he has any follow up either neurology or cardiology since then. was started on Eliquis here, seen by cardiology, rec to increase dose to 5 bid HFrEF echo with EF 29% with bioprosthetic mitral valve appears to be functioning normally No exacerbation continue baseline dose of lasix COPD no exacerbation History of coronary artery disease stop plavix as Eliquis has been started Deconditioning Seen by PT recommended short-term rehab versus home services DVT ppx: subq heparin d/c now that Eliquis started Full code Quality Stroke Does the patient have a stroke diagnosis?: No VTE Prior VTE?: No VTE Risk Level:: Medical - moderate - high VTE Device Contraindication: Treatment Not Indicated VTE Drug Contraindication: N/A - Med Ordered
--- NOTE | 2025-08-31 15:49 | MHC.CM.PN ---
Addendum entered by Liudmila Joseph 09/01/25 10:38: CM returned a call from HCP/Katlin; CM was only able to leave another detailed message. Addendum entered by Liudmila Joseph 08/31/25 16:00: Per PA, Patient's Niece/HCP/Katlin should be contacted to assist with dc planning; Patient has also given CM permission to speak with Katlin. CM called Katlin at listed # but was only able to leave a detailed message. CM awaits a return call from Katlin. Original Note: CM met with Patient at bedside to discuss PT's recommendation for STR; Patient wants to go home. CM has reached out to [facility]/Kristen to clarify if Patient is his own decision maker. CM awaits a response from PA.
[2025-08-31 15:54] VITALS: BP 131/69; PULSE 72; RESP 16; TEMP 36.4; O2SAT 93
[2025-08-31 16:20] LABS: Glucose, Whole Blood 249 mg/dL (60-115)
--- NOTE | 2025-08-31 17:29 | HO.SKINPHOTO ---
Location: R leg Location: L Leg
[2025-08-31 19:51] VITALS: BP 153/76; PULSE 78; RESP 26; TEMP 36.9; O2SAT 92
[2025-09-01 03:52] VITALS: BP 151/87; PULSE 79; RESP 20; TEMP 36.7; O2SAT 93
[2025-09-01 06:44] LABS: MANUAL DIFF FLAG NO
[2025-09-01 06:51] LABS: Hematocrit 44.7 % (42.0-52.0); Hemoglobin 14.6 g/dl (14.0-18.0); Imm Gran Abs Auto 0.03 X10*3/uL (0.00-0.03); Imm Gran Pct Auto 0.3 % (0.0-0.4); Lymphocytes Absolute Auto 1.6 X10*3/uL (1.2-4.9); Mean Corpuscular HGB Conc 32.7 g/dl (31.0-36.0); Mean Corpuscular Hemoglobin 25.7 pg (27.0-33.0); Mean Corpuscular Volume 78.7 fL (80.0-98.0); NRBC Abs Auto 0.000 X10*3/uL (0.0-0.012); NRBC Pct Auto 0.0 /100WBC (0.0-0.2); Platelet Count 281 X10*3/uL (160-400); Red Blood Count 5.68 X10*6/uL (4.60-5.80); White Blood Count 9.9 X10*3/uL (4.8-10.8)
[2025-09-01 07:09] VITALS: BP 153/73; PULSE 101; RESP 16; TEMP 36.6; O2SAT 92
[2025-09-01 07:20] LABS: Alanine Aminotransferase 22 U/L (0-40); Albumin Level 3.2 g/dL (3.5-5.0); Alkaline Phosphatase 82 U/L (39-117); Anion Gap 14 (12-20); Aspartate Amino Transferase 32 U/L (5-37); Blood Urea Nitrogen 23 mg/dL (9-16); Calcium 8.6 mg/dL (8.4-10.2); Carbon Dioxide 22 mmol/L (22-29); Chloride 106 mmol/L (96-108); Creatinine Clr Calc Pharmacy 53.2; Estimated Glomerular Filt Rate 57; Magnesium 1.6 mg/dL (1.6-2.6); Potassium 3.6 mmol/L (3.3-5.1); Sodium 138 mmol/L (135-145); Total Protein 6.1 g/dL (6.5-8.0)
[2025-09-01 07:52] LABS: Glucose, Whole Blood 173 mg/dL (60-115)
[2025-09-01] MEDS: Ammonium Lactate 12 % Cream 140 GM TUBE 1 APPL TOPICAL ×2 (08:08→22:04)
[2025-09-01] MEDS: Miconazole Nitrate 2% Oint 57 GM OINT...G. 1 APPL TOPICAL ×2 (08:08→22:05)
[2025-09-01] MEDS: Insulin Glargine,Hum.rec.anlog 100 UNIT/ML 10 ML VIAL 10 UNIT SUBCUT (08:09)
[2025-09-01] MEDS: 0.9 % Sodium Chloride Flush 3 ML SYRINGE IVFLUSH ×3 (08:09→22:05)
[2025-09-01] MEDS: diazePAM 10 MG/2 ML CARTRIDGE 2.5 MG IVPUSH (11:40)
--- NOTE | 2025-09-01 12:01 | MHC.CM.PN ---
RADHA returned a call to Mae at the [facility] @ [phone]; she was requesting an update on dc planning.
--- NOTE | 2025-09-01 12:37 | HO.PM.IMPN ---
Subjective Subjective Date of Service: 09/01/25 Interval History: seen and examined this morning follow up for leg wounds awake, alert; hard of hearing no complaints Review of Systems Review of Systems: Yes all other systems are reviewed and are negative Constitutional Constitutional: Denies chills and Denies fever(s) Cardiovascular Cardiovascular: Denies chest pain, Denies palpitations and Denies dyspnea Respiratory Respiratory: Denies cough and Denies dyspnea Endocrine Endocrine: Denies palpitations Physical Exam Vital Signs: Vital Signs: Last Vital Signs Temp 97.9 F 09/01/25 07:09 Pulse 101 H 09/01/25 07:09 Resp 16 09/01/25 07:09 BP 153/73 H 09/01/25 07:09 Pulse Ox 92 09/01/25 07:09 O2 Del Method Room Air 09/01/25 07:09 O2 Flow Rate 4 08/30/25 15:32 BMI result Body Mass Index 33.5 Const: General: cooperative, comfortable, no acute distress, alert and awake Nutritional Appearance: overweight Orientation/consciousness: oriented to person GI: Inspection: No distended Palpation (GI): Soft to palpation and nontender Neuro: Other: grossly non-focal General: oriented to person Objective Data Active Medications Acetaminophen (Acetaminophen 325 Mg Tablet) 650 mg PO Q6H PRN PRN Reason: Pain, Mild 1-3,fever,headache Amlodipine Besylate (Amlodipine Besylate 10 Mg Tablet) 10 mg PO DAILY [facility]; Protocol Last Admin: 09/01/25 08:08 Dose: 10 mg Documented By: FAUSTO Apixaban (Apixaban 5 Mg Tablet) 5 mg PO BID [facility] Last Admin: 09/01/25 08:08 Dose: 5 mg Documented By: FAUSTO Calcium Carbonate (Calcium Carbonate 750 Mg Tab.Chew) 750 mg PO Q4H PRN PRN Reason: Heartburn Cyanocobalamin (Cyanocobalamin (Vitamin B-12) 1,000 Mcg Tablet) 1,000 mcg PO DAILY [facility] Last Admin: 09/01/25 08:08 Dose: 1,000 mcg Documented By: FAUSTO Dextrose (Dextrose 50 % 25 Gm/50 Ml Syringe) 25 gm IVPUSH Q15M PRN; Protocol PRN Reason: per Hypoglycemia Standing Ord. Doxycycline Monohydrate (Doxycycline Monohydrate 100 Mg Capsule) 100 mg PO Q12H [facility] Last Admin: 09/01/25 08:08 Dose: 100 mg Documented By: FAUSTO Furosemide (Furosemide 40 Mg Tablet) 40 mg PO DAILY [facility]; Protocol Last Admin: 09/01/25 08:08 Dose: 40 mg Documented By: FAUSTO Glucose (Glucose Gel 15 Gm Gel..Gram.) 15 gm PO Q15M PRN; Protocol PRN Reason: per Hypoglycemia Standing Ord. Insulin Glargine (Insulin Glargine,Hum.Rec.Anlog 100 Unit/Ml 10 Ml Vial) 10 unit SUBCUT DAILY [facility] Last Admin: 09/01/25 08:09 Dose: 10 unit Documented By: FAUSTO Insulin Human Lispro (Insulin Lispro 100 Unit/Ml 3 Ml Vial) 0 unit SUBCUT QIDACHS [facility]; Protocol Last Admin: 09/01/25 08:08 Dose: 2 unit Documented By: FAUSTO Lactic Acid (Ammonium Lactate 12 % Cream 140 Gm Tube) 1 appl TOPICAL BID [facility]; Protocol Last Admin: 09/01/25 08:08 Dose: 1 appl Documented By: FAUSTO Losartan Potassium (Losartan Potassium 50 Mg Tablet) 100 mg PO DAILY [facility]; Protocol Last Admin: 09/01/25 08:08 Dose: 100 mg Documented By: FAUSTO Magnesium Hydroxide (Milk Of Magnesia 30 Ml Oral.Susp) 30 ml PO DAILY PRN PRN Reason: Constipation Melatonin (Melatonin 3 Mg Tablet) 6 mg PO BEDTIME PRN PRN Reason: Insomnia Miconazole Nitrate (Miconazole Nitrate 2% Oint 57 Gm Oint...G.) 1 appl TOPICAL BID [facility]; Protocol Last Admin: 09/01/25 08:08 Dose: 1 appl Documented By: FAUSTO Ondansetron HCl (Ondansetron Hcl 4 Mg/2 Ml Vial) 4 mg IVPUSH Q8H PRN PRN Reason: Nausea and Vomiting Senna (Sennosides 8.6 Mg Tablet) 8.6 mg PO BEDTIME PRN PRN Reason: Constipation Sodium Chloride (0.9 % Sodium Chloride Flush 3 Ml Syringe) 3 ml IVFLUSH QSHIFT [facility] Last Admin: 09/01/25 08:09 Dose: 3 ml Documented By: FAUSTO Labs 09/01/25 06:17 09/01/25 06:17 Labs: Laboratory Results - last 24 hr 08/31/25 08/31/25 09/01/25 16:17 21:03 06:17 MCV 78.7 L MCH 25.7 L MCHC 32.7 RDW 14.0 Plt Count 281 MPV 10.0 Immature Gran % (Auto) 0.3 Neut % (Auto) 65.2 Lymph % (Auto) 15.8 L [place] % (Auto) 10.0 Eos % (Auto) 7.9 H Baso % (Auto) 0.8 Lymph # (Auto) 1.6 [place] # (Auto) 1.0 Eos # (Auto) 0.8 H Baso # (Auto) 0.1 Abs Immat Gran (auto) 0.03 Absolute Neuts (auto) 6.5 Absolute Nucleated RBC 0.000 Nucleated RBC % (auto) 0.0 Anion Gap 14 Estim Creat Clear Calc 53.2 Estimated GFR 57 POC Glucose 249 H 369 H* Random Glucose 162 H Calcium 8.6 Magnesium 1.6 Total Bilirubin 0.7 AST 32 ALT 22 Alkaline Phosphatase 82 Total Protein 6.1 L Albumin 3.2 L 09/01/25 07:08 MCV MCH MCHC RDW Plt Count MPV Immature Gran % (Auto) Neut % (Auto) Lymph % (Auto) [place] % (Auto) Eos % (Auto) Baso % (Auto) Lymph # (Auto) [place] # (Auto) Eos # (Auto) Baso # (Auto) Abs Immat Gran (auto) Absolute Neuts (auto) Absolute Nucleated RBC Nucleated RBC % (auto) Anion Gap Estim Creat Clear Calc Estimated GFR POC Glucose 173 H Random Glucose Calcium Magnesium Total Bilirubin AST ALT Alkaline Phosphatase Total Protein Albumin Assessment and Plan (1) Open wound of left lower extremity: Status: Acute Plan This is an 85 year old male with history of HFpEF, CAD, COPD unspecified, CABG, HTN, paroxysmal a fib, type 2 diabetes on insulin and CKD 3, bioprosthetic aortic valve, 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 who presented with worsening lower extremity wounds with concern for osteomyelitis chronic b/l LE nonhealing leg ulcers due to uncontrolle DM concern for osteomyelitis plan for MRI, still awaiting MRI to be done wound care following - see wound care note for details US negative for DVT seen by ID, will continue po doxy for now, if osteo, change to IV vanco seen by general surgery - no surgical intervention recommended Uncontrolled diabetes mellitus 2 hba1c 11.6 continue Lantus ss, ada diet Hypertension continue norvasc CKD 3 renal function at baseline h/o Paroxysmal atrial fibrillation now in aflutter upon review on notes from [facility] - 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 Due to risk of hemorrhagic conversion with strokes with mycotic aneurysm his coumadin was discontinued at that time and was placed on plavix and asa. unclear if he has any follow up either neurology or cardiology since then. was started on Eliquis here, seen by cardiology, rec to increase dose to 5 bid. plavix stopped HFrEF echo with EF 29% with bioprosthetic mitral valve appears to be functioning normally No exacerbation continue baseline dose of lasix COPD no exacerbation History of coronary artery disease stop plavix as Eliquis has been started Deconditioning Seen by PT recommended short-term rehab DVT ppx: subq heparin d/c now that Eliquis started attempted to call luke Dalal awaiting call back Full code Quality Stroke Does the patient have a stroke diagnosis?: No VTE Prior VTE?: No VTE Risk Level:: Medical - moderate - high VTE Device Contraindication: Treatment Not Indicated VTE Drug Contraindication: N/A - Med Ordered
[2025-09-01 13:25] LABS: Glucose, Whole Blood 281 mg/dL (60-115)
--- NOTE | 2025-09-01 13:44 | MHC.CM.PN ---
CM and HCP/Katlin spoke over the phone.Katlin is in agreement with PT's recommendation for str. Katlin recommended that CM remind Patient that he would be home in time for [place] even if he goes to STR. CM met with Patient who continues to refuse STR. CM spoke with PA and asked if a Capacity Eval is needed.CM will follow.
[2025-09-01 15:37] VITALS: BP 138/81; PULSE 71; RESP 16; O2SAT 95
[2025-09-01 16:04] LABS: Glucose, Whole Blood 364 mg/dL (60-115)
[2025-09-01 19:04] VITALS: BP 145/75; PULSE 68; RESP 18; TEMP 36.5; O2SAT 92
[2025-09-01 20:56] LABS: Glucose, Whole Blood 307 mg/dL (60-115)
--- NOTE | 2025-09-01 21:24 | PM.IDPN ---
Subjective Subjective Date of Service: 09/01/25 Critical Care Time (minutes): 15 Comment: He has no concerns,no changes Objective Data Labs 09/01/25 06:17 09/01/25 06:17 Labs: Laboratory Results - last 24 hr 09/01/25 09/01/25 09/01/25 06:17 07:08 13:21 WBC 9.9 RBC 5.68 Hgb 14.6 Hct 44.7 MCV 78.7 L MCH 25.7 L MCHC 32.7 RDW 14.0 Plt Count 281 MPV 10.0 Immature Gran % (Auto) 0.3 Neut % (Auto) 65.2 Lymph % (Auto) 15.8 L [place] % (Auto) 10.0 Eos % (Auto) 7.9 H Baso % (Auto) 0.8 Lymph # (Auto) 1.6 [place] # (Auto) 1.0 Eos # (Auto) 0.8 H Baso # (Auto) 0.1 Abs Immat Gran (auto) 0.03 Absolute Neuts (auto) 6.5 Absolute Nucleated RBC 0.000 Nucleated RBC % (auto) 0.0 Sodium 138 Potassium 3.6 Chloride 106 Carbon Dioxide 22 Anion Gap 14 BUN 23 H Creatinine 1.22 Estim Creat Clear Calc 53.2 Estimated GFR 57 POC Glucose 173 H 281 H Random Glucose 162 H Calcium 8.6 Magnesium 1.6 Total Bilirubin 0.7 AST 32 ALT 22 Alkaline Phosphatase 82 Total Protein 6.1 L Albumin 3.2 L 09/01/25 09/01/25 15:42 20:47 WBC RBC Hgb Hct MCV MCH MCHC RDW Plt Count MPV Immature Gran % (Auto) Neut % (Auto) Lymph % (Auto) [place] % (Auto) Eos % (Auto) Baso % (Auto) Lymph # (Auto) [place] # (Auto) Eos # (Auto) Baso # (Auto) Abs Immat Gran (auto) Absolute Neuts (auto) Absolute Nucleated RBC Nucleated RBC % (auto) Sodium Potassium Chloride Carbon Dioxide Anion Gap BUN Creatinine Estim Creat Clear Calc Estimated GFR POC Glucose 364 H* 307 H Random Glucose Calcium Magnesium Total Bilirubin AST ALT Alkaline Phosphatase Total Protein Albumin Microbiology Microbiology Results: Microbiology 08/28/25 11:55 Blood - Venous Blood Culture - Preliminary No growth after 48 hours. 08/28/25 11:55 Blood - Venous Blood Culture - Preliminary No growth after 48 hours. Physical Exam Vital Signs: Vital Signs: Last Vital Signs Temp 97.7 F 09/01/25 19:04 Pulse 68 09/01/25 19:04 Resp 18 09/01/25 19:04 BP 145/75 H 09/01/25 19:04 Pulse Ox 92 09/01/25 19:04 O2 Del Method Room Air 09/01/25 19:04 O2 Flow Rate 4 08/30/25 15:32 BMI result Body Mass Index 33.5 Const: General: cooperative HEENT: Head: Yes normal to inspection Face and sinus: Yes normal facial exam Mouth: Normal oral and palatal mucosa present Teeth and gingiva: dentition normal Eyes: General: appearance normal, both eyes and all related structures Pupils: Equal, round and reactive pupils present Resp: Effort & Inspection: normal respiratory effort Cardio: Rate: regular rate Rhythm: regular rhythm GI: Palpation (GI): Soft to palpation and nontender : General: Yes no CVA tenderness Back/Spine/Pelvis: Back: no CVA tenderness Skin: General skin exam: no rashes or lesions noted Neuro: General: moves all extremities Cranial nerves: Yes Equal, round and reactive pupils present Extrem: Other: improved celllulitis General: Yes normal to inspection Psych: Appearance: grossly normal Assessment and Plan Assessment and plan (1) Open wound of left lower extremity: Status: Acute Plan Cellulitis Improving No OM Doxycycline with topical creams two weeks. Time Spent With Patient Time: Total time managing care of this patient today ____ minutes.
[2025-09-01 23:02] VITALS: BP 153/72; PULSE 65; RESP 17; TEMP 36.2; O2SAT 93
[2025-09-02 03:16] VITALS: BP 125/81; PULSE 76; RESP 17; TEMP 36.9; O2SAT 92
[2025-09-02 07:15] LABS: Glucose, Whole Blood 176 mg/dL (60-115)
[2025-09-02 07:53] VITALS: BP 156/86; PULSE 77; RESP 22; TEMP 36.6; O2SAT 94
[2025-09-02] MEDS: Insulin Glargine,Hum.rec.anlog 100 UNIT/ML 10 ML VIAL 10 UNIT SUBCUT (08:37)
--- NOTE | 2025-09-02 10:01 | P.PNIM_ITS ---
Subjective Subjective Date of Service: 09/02/25 Interval History: seen and examined this morning follow up for leg wounds Physical Exam 2 Vital Signs: Vital Signs: Last Vital Signs Temp 97.8 F 09/02/25 07:53 Pulse 77 09/02/25 07:53 Resp 22 H 09/02/25 07:53 BP 156/86 H 09/02/25 07:53 Pulse Ox 94 09/02/25 07:53 O2 Del Method Room Air 09/02/25 07:53 O2 Flow Rate 4 08/30/25 15:32 BMI result Body Mass Index 33.5 Objective Data Active Medications Acetaminophen (Acetaminophen 325 Mg Tablet) 650 mg PO Q6H PRN PRN Reason: Pain, Mild 1-3,fever,headache Last Admin: 09/01/25 22:03 Dose: 650 mg Documented By: SHEFALI Amlodipine Besylate (Amlodipine Besylate 10 Mg Tablet) 10 mg PO DAILY [facility]; Protocol Last Admin: 09/02/25 08:40 Dose: 10 mg Documented By: NNAMDI Apixaban (Apixaban 5 Mg Tablet) 5 mg PO BID [facility] Last Admin: 09/02/25 08:40 Dose: 5 mg Documented By: NNAMDI Calcium Carbonate (Calcium Carbonate 750 Mg Tab.Chew) 750 mg PO Q4H PRN PRN Reason: Heartburn Cyanocobalamin (Cyanocobalamin (Vitamin B-12) 1,000 Mcg Tablet) 1,000 mcg PO DAILY [facility] Last Admin: 09/02/25 08:40 Dose: 1,000 mcg Documented By: NNAMDI Dextrose (Dextrose 50 % 25 Gm/50 Ml Syringe) 25 gm IVPUSH Q15M PRN; Protocol PRN Reason: per Hypoglycemia Standing Ord. Doxycycline Monohydrate (Doxycycline Monohydrate 100 Mg Capsule) 100 mg PO Q12H [facility] Last Admin: 09/02/25 08:40 Dose: 100 mg Documented By: NNAMDI Furosemide (Furosemide 40 Mg Tablet) 40 mg PO DAILY [facility]; Protocol Last Admin: 09/02/25 08:40 Dose: 40 mg Documented By: NNAMDI Glucose (Glucose Gel 15 Gm Gel..Gram.) 15 gm PO Q15M PRN; Protocol PRN Reason: per Hypoglycemia Standing Ord. Insulin Glargine (Insulin Glargine,Hum.Rec.Anlog 100 Unit/Ml 10 Ml Vial) 10 unit SUBCUT DAILY [facility] Last Admin: 09/02/25 08:37 Dose: 10 unit Documented By: NNAMDI Insulin Human Lispro (Insulin Lispro 100 Unit/Ml 3 Ml Vial) 0 unit SUBCUT QIDACHS [facility]; Protocol Last Admin: 09/02/25 08:39 Dose: 2 unit Documented By: NNAMDI Lactic Acid (Ammonium Lactate 12 % Cream 140 Gm Tube) 1 appl TOPICAL BID [facility]; Protocol Last Admin: 09/01/25 22:04 Dose: 1 appl Documented By: SHEFALI Losartan Potassium (Losartan Potassium 50 Mg Tablet) 100 mg PO DAILY [facility]; Protocol Last Admin: 09/02/25 08:40 Dose: 100 mg Documented By: NNAMDI Magnesium Hydroxide (Milk Of Magnesia 30 Ml Oral.Susp) 30 ml PO DAILY PRN PRN Reason: Constipation Melatonin (Melatonin 3 Mg Tablet) 6 mg PO BEDTIME PRN PRN Reason: Insomnia Miconazole Nitrate (Miconazole Nitrate 2% Oint 57 Gm Oint...G.) 1 appl TOPICAL BID [facility]; Protocol Last Admin: 09/01/25 22:05 Dose: 1 appl Documented By: SHEFALI Ondansetron HCl (Ondansetron Hcl 4 Mg/2 Ml Vial) 4 mg IVPUSH Q8H PRN PRN Reason: Nausea and Vomiting Senna (Sennosides 8.6 Mg Tablet) 8.6 mg PO BEDTIME PRN PRN Reason: Constipation Sodium Chloride (0.9 % Sodium Chloride Flush 3 Ml Syringe) 3 ml IVFLUSH QSHIFT [facility] Last Admin: 09/01/25 22:05 Dose: 3 ml Documented By: SHEFALI Labs 09/01/25 06:17 09/01/25 06:17 Labs: Laboratory Results - last 24 hr 09/01/25 09/01/25 09/01/25 13:21 15:42 20:47 POC Glucose 281 H 364 H* 307 H 09/02/25 07:06 POC Glucose 176 H Assessment and Plan (1) Open wound of left lower extremity: Status: Acute Plan This is an 85 year old male with history of HFpEF, CAD, COPD unspecified, CABG, HTN, paroxysmal a fib, type 2 diabetes on insulin and CKD 3, bioprosthetic aortic valve, 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 The study is of limited diagnostic value due to motion. No definite sign of osteomyelitis. 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 Due to risk of hemorrhagic conversion with strokes with mycotic aneurysm his coumadin was discontinued at that time and was placed on plavix and asa. unclear if he has any follow up either neurology or cardiology since then. was started on Eliquis here, seen by cardiology, rec to increase dose to 5 bid. plavix stopped HFrEF echo with EF 29% with bioprosthetic mitral valve appears to be functioning normally No exacerbation continue baseline dose of lasix COPD no exacerbation History of coronary artery disease stop plavix as Eliquis has been started Deconditioning Seen by PT recommended short-term rehab DVT ppx: subq heparin d/c now that Eliquis started attempted to call luke Dalal awaiting call back Full code Quality Stroke Does the patient have a stroke diagnosis?: No VTE Prior VTE?: No VTE Risk Level:: Medical - moderate - high VTE Device Contraindication: Treatment Not Indicated VTE Drug Contraindication: N/A - Med Ordered
[2025-09-02] MEDS: 0.9 % Sodium Chloride Flush 3 ML SYRINGE IVFLUSH ×3 (11:11→20:18)
--- NOTE | 2025-09-02 11:21 | PC.NURSE ---
Nurse to nurse called into [facility], spoke with Zaina ROSSI.
[2025-09-02 11:34] LABS: Glucose, Whole Blood 309 mg/dL (60-115)
[2025-09-02 11:54] VITALS: BP 151/70; PULSE 71; RESP 20; TEMP 37.1; O2SAT 95
[2025-09-02 14:15] VITALS: BP 150/82; PULSE 70; RESP 20; TEMP 36.4; O2SAT 96
[2025-09-02] MEDS: Miconazole Nitrate 2% Oint 57 GM OINT...G. 1 APPL TOPICAL ×2 (14:21→20:19)
[2025-09-02] MEDS: Ammonium Lactate 12 % Cream 140 GM TUBE 1 APPL TOPICAL ×2 (14:22→20:18)
[2025-09-02 15:36] VITALS: BP 154/85; PULSE 77; RESP 20; TEMP 36.7; O2SAT 96
[2025-09-02 16:11] LABS: Glucose, Whole Blood 198 mg/dL (60-115)
--- NOTE | 2025-09-02 17:59 | PC.NURSE ---
Patient extremely rude at staff, swearing, threatening. Attempted to educate patient on correct behavior and continues to swear. 1:1 sitter for safety, security on stand by.
[2025-09-02 19:14] VITALS: BP 144/71; PULSE 87; RESP 18; TEMP 36.9; O2SAT 93
[2025-09-02 20:03] LABS: Glucose, Whole Blood 279 mg/dL (60-115)
[2025-09-03 04:00] VITALS: BP 146/80; PULSE 80; RESP 18; TEMP 37; O2SAT 92
[2025-09-03 07:27] LABS: Glucose, Whole Blood 203 mg/dL (60-115)
[2025-09-03 07:30] VITALS: BP 158/82; PULSE 74; RESP 18; TEMP 36.2; O2SAT 93
[2025-09-03] MEDS: Insulin Glargine,Hum.rec.anlog 100 UNIT/ML 10 ML VIAL 10 UNIT SUBCUT (07:41)
[2025-09-03] MEDS: 0.9 % Sodium Chloride Flush 3 ML SYRINGE IVFLUSH ×3 (07:43→20:55)
--- NOTE | 2025-09-03 08:45 | P.PNIM_ITS ---
Subjective Subjective Date of Service: 09/03/25 Interval History: seen and examined this morning follow up for leg wounds, no new issues Physical Exam 2 Exam: Exam: General: Alert, oriented to self, no to place or date Resp: CTA bilateral CVS: S1,S2,RRR GI: +BS, NT, no distention Skin: leg wounds wrapped, see pic from 09/03 Neuro: motor grossly intact Psych: appropriate affect Vital Signs: Vital Signs: Last Vital Signs Temp 97.2 F 09/03/25 07:30 Pulse 74 09/03/25 07:30 Resp 18 09/03/25 07:30 BP 158/82 H 09/03/25 07:30 Pulse Ox 93 09/03/25 07:30 O2 Del Method Room Air 09/03/25 07:30 O2 Flow Rate 4 08/30/25 15:32 BMI result Body Mass Index 33.5 Objective Data Active Medications Acetaminophen (Acetaminophen 325 Mg Tablet) 650 mg PO Q6H PRN PRN Reason: Pain, Mild 1-3,fever,headache Last Admin: 09/01/25 22:03 Dose: 650 mg Documented By: SHEFALI Amlodipine Besylate (Amlodipine Besylate 10 Mg Tablet) 10 mg PO DAILY [facility]; Protocol Last Admin: 09/03/25 07:42 Dose: 10 mg Documented By: SUSANNE Apixaban (Apixaban 5 Mg Tablet) 5 mg PO BID [facility] Last Admin: 09/03/25 07:42 Dose: 5 mg Documented By: SUSANNE Calcium Carbonate (Calcium Carbonate 750 Mg Tab.Chew) 750 mg PO Q4H PRN PRN Reason: Heartburn Cyanocobalamin (Cyanocobalamin (Vitamin B-12) 1,000 Mcg Tablet) 1,000 mcg PO DAILY [facility] Last Admin: 09/03/25 07:42 Dose: 1,000 mcg Documented By: SUSANNE Dextrose (Dextrose 50 % 25 Gm/50 Ml Syringe) 25 gm IVPUSH Q15M PRN; Protocol PRN Reason: per Hypoglycemia Standing Ord. Doxycycline Monohydrate (Doxycycline Monohydrate 100 Mg Capsule) 100 mg PO Q12H [facility] Last Admin: 09/03/25 07:42 Dose: 100 mg Documented By: SUSANNE Furosemide (Furosemide 40 Mg Tablet) 40 mg PO DAILY [facility]; Protocol Last Admin: 09/03/25 07:42 Dose: 40 mg Documented By: SUSANNE Glucose (Glucose Gel 15 Gm Gel..Gram.) 15 gm PO Q15M PRN; Protocol PRN Reason: per Hypoglycemia Standing Ord. Insulin Glargine (Insulin Glargine,Hum.Rec.Anlog 100 Unit/Ml 10 Ml Vial) 10 unit SUBCUT DAILY [facility] Last Admin: 09/03/25 07:41 Dose: 10 unit Documented By: SUSANNE Insulin Human Lispro (Insulin Lispro 100 Unit/Ml 3 Ml Vial) 0 unit SUBCUT QIDACHS [facility]; Protocol Last Admin: 09/03/25 07:41 Dose: 4 unit Documented By: SUSANNE Lactic Acid (Ammonium Lactate 12 % Cream 140 Gm Tube) 1 appl TOPICAL BID [facility]; Protocol Last Admin: 09/02/25 20:18 Dose: 1 appl Documented By: MARITZA Losartan Potassium (Losartan Potassium 50 Mg Tablet) 100 mg PO DAILY [facility]; Protocol Last Admin: 09/03/25 07:42 Dose: 100 mg Documented By: SUSANNE Magnesium Hydroxide (Milk Of Magnesia 30 Ml Oral.Susp) 30 ml PO DAILY PRN PRN Reason: Constipation Melatonin (Melatonin 3 Mg Tablet) 6 mg PO BEDTIME PRN PRN Reason: Insomnia Miconazole Nitrate (Miconazole Nitrate 2% Oint 57 Gm Oint...G.) 1 appl TOPICAL BID [facility]; Protocol Last Admin: 09/02/25 20:19 Dose: 1 appl Documented By: MARITZA Ondansetron HCl (Ondansetron Hcl 4 Mg/2 Ml Vial) 4 mg IVPUSH Q8H PRN PRN Reason: Nausea and Vomiting Last Admin: 09/02/25 16:04 Dose: 4 mg Documented By: SUSANNE Senna (Sennosides 8.6 Mg Tablet) 8.6 mg PO BEDTIME PRN PRN Reason: Constipation Sodium Chloride (0.9 % Sodium Chloride Flush 3 Ml Syringe) [facility] Last Admin: 09/03/25 07:43 Dose: 3 ml Documented By: SUSANNE Labs 09/01/25 06:17 09/01/25 06:17 Labs: Laboratory Results - last 24 hr 09/02/25 09/02/25 09/02/25 11:13 16:06 20:00 POC Glucose 309 H 198 H 279 H 09/03/25 07:02 POC Glucose 203 H Microbiology Microbiology Results: Microbiology 08/28/25 11:55 Blood Culture - Final Blood - Venous No growth after 5 days. 08/28/25 11:55 Blood Culture - Final Blood - Venous No growth after 5 days. 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 The study is of limited diagnostic value due to motion. No definite sign of osteomyelitis. 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 Due to risk of hemorrhagic conversion with strokes with mycotic aneurysm his coumadin was discontinued at that time and was placed on plavix and asa. unclear if he has any follow up either neurology or cardiology since then. was started on Eliquis here, seen by cardiology, rec to increase dose to 5 bid. plavix stopped HFrEF echo with EF 29% with bioprosthetic mitral valve appears to be functioning normally No exacerbation continue baseline dose of lasix COPD no exacerbation History of coronary artery disease stop plavix as Eliquis has been started Deconditioning Seen by PT recommended short-term rehab Cognitive impairment, likely undiagnosed dementia, has poor understanding of clinical circumstance and is not able to formulate coherent thoughts to make sound medical decisions and therefore I'm invoking health care proxy DVT ppx: subq heparin d/c now that Eliquis started attempted to call luke Dalal awaiting call back Full code Quality Stroke Does the patient have a stroke diagnosis?: No VTE Prior VTE?: No VTE Risk Level:: Medical - moderate - high VTE Device Contraindication: Treatment Not Indicated VTE Drug Contraindication: N/A - Med Ordered
[2025-09-03 11:42] LABS: Glucose, Whole Blood 234 mg/dL (60-115)
--- NOTE | 2025-09-03 11:52 | PC.NURSE ---
Sitter to go to ED for another patient, Camera in room for safety, rounder made aware of patients fall risk, impulsiveness.
[2025-09-03] MEDS: Ammonium Lactate 12 % Cream 140 GM TUBE 1 APPL TOPICAL ×2 (12:01→21:06)
[2025-09-03] MEDS: Miconazole Nitrate 2% Oint 57 GM OINT...G. 1 APPL TOPICAL ×2 (12:01→20:54)
[2025-09-03 15:41] VITALS: BP 134/83; PULSE 65; RESP 18; TEMP 36.5; O2SAT 96
[2025-09-03 16:09] LABS: Glucose, Whole Blood 203 mg/dL (60-115)
[2025-09-03 20:00] VITALS: BP 165/77; PULSE 67; RESP 18; TEMP 36.2; O2SAT 95
[2025-09-03 20:41] LABS: Glucose, Whole Blood 239 mg/dL (60-115)
[2025-09-04 03:01] VITALS: PULSE 75; RESP 18; TEMP 36.1; O2SAT 95
[2025-09-04 07:39] VITALS: BP 156/83; PULSE 62; RESP 18; TEMP 36.4; O2SAT 93
[2025-09-04 07:52] LABS: Glucose, Whole Blood 184 mg/dL (60-115)
[2025-09-04] MEDS: Insulin Glargine,Hum.rec.anlog 100 UNIT/ML 10 ML VIAL 10 UNIT SUBCUT (08:16)
[2025-09-04] MEDS: Ammonium Lactate 12 % Cream 140 GM TUBE 1 APPL TOPICAL (08:19)
[2025-09-04] MEDS: Miconazole Nitrate 2% Oint 57 GM OINT...G. 1 APPL TOPICAL (08:19)
[2025-09-04] MEDS: 0.9 % Sodium Chloride Flush 3 ML SYRINGE IVFLUSH ×2 (08:19→16:06)
--- NOTE | 2025-09-04 08:53 | P.PNIM_ITS ---
Subjective Subjective Date of Service: 09/04/25 Interval History: seen and examined this morning Hard of hearing, no new issues, base some confusion Physical Exam 2 Exam: Exam: General: Alert, oriented to self, no to place or date Resp: CTA bilateral CVS: S1,S2,RRR GI: +BS, NT, no distention Skin: leg wounds wrapped, see pic from 09/03 Neuro: motor grossly intact Psych: appropriate affect Vital Signs: Vital Signs: Last Vital Signs Temp 97.6 F 09/04/25 07:39 Pulse 62 09/04/25 07:39 Resp 18 09/04/25 07:39 BP 156/83 H 09/04/25 07:39 Pulse Ox 93 09/04/25 07:39 O2 Del Method Room Air 09/04/25 07:39 O2 Flow Rate 4 08/30/25 15:32 BMI result Body Mass Index 33.5 Objective Data Active Medications Acetaminophen (Acetaminophen 325 Mg Tablet) 650 mg PO Q6H PRN PRN Reason: Pain, Mild 1-3,fever,headache Last Admin: 09/01/25 22:03 Dose: 650 mg Documented By: SHEFALI Amlodipine Besylate (Amlodipine Besylate 10 Mg Tablet) 10 mg PO DAILY [facility]; Protocol Last Admin: 09/04/25 08:16 Dose: 10 mg Documented By: CHARLIE Apixaban (Apixaban 5 Mg Tablet) 5 mg PO BID [facility] Last Admin: 09/04/25 08:16 Dose: 5 mg Documented By: CHARLIE Calcium Carbonate (Calcium Carbonate 750 Mg Tab.Chew) 750 mg PO Q4H PRN PRN Reason: Heartburn Cyanocobalamin (Cyanocobalamin (Vitamin B-12) 1,000 Mcg Tablet) 1,000 mcg PO DAILY [facility] Last Admin: 09/04/25 08:16 Dose: 1,000 mcg Documented By: CHARLIE Dextrose (Dextrose 50 % 25 Gm/50 Ml Syringe) 25 gm IVPUSH Q15M PRN; Protocol PRN Reason: per Hypoglycemia Standing Ord. Doxycycline Monohydrate (Doxycycline Monohydrate 100 Mg Capsule) 100 mg PO Q12H [facility] Last Admin: 09/04/25 08:16 Dose: 100 mg Documented By: CHARLIE Furosemide (Furosemide 40 Mg Tablet) 40 mg PO DAILY [facility]; Protocol Last Admin: 09/04/25 08:16 Dose: 40 mg Documented By: CHARLIE Glucose (Glucose Gel 15 Gm Gel..Gram.) 15 gm PO Q15M PRN; Protocol PRN Reason: per Hypoglycemia Standing Ord. Insulin Glargine (Insulin Glargine,Hum.Rec.Anlog 100 Unit/Ml 10 Ml Vial) 10 unit SUBCUT DAILY [facility] Last Admin: 09/04/25 08:16 Dose: 10 unit Documented By: CHARLIE Insulin Human Lispro (Insulin Lispro 100 Unit/Ml 3 Ml Vial) 0 unit SUBCUT QIDACHS [facility]; Protocol Last Admin: 09/04/25 08:16 Dose: 2 unit Documented By: CHARLIE Lactic Acid (Ammonium Lactate 12 % Cream 140 Gm Tube) 1 appl TOPICAL BID [facility]; Protocol Last Admin: 09/04/25 08:19 Dose: 1 appl Documented By: CHARLIE Losartan Potassium (Losartan Potassium 50 Mg Tablet) 100 mg PO DAILY [facility]; Protocol Last Admin: 09/04/25 08:16 Dose: 100 mg Documented By: CHARLIE Magnesium Hydroxide (Milk Of Magnesia 30 Ml Oral.Susp) 30 ml PO DAILY PRN PRN Reason: Constipation Melatonin (Melatonin 3 Mg Tablet) 6 mg PO BEDTIME PRN PRN Reason: Insomnia Miconazole Nitrate (Miconazole Nitrate 2% Oint 57 Gm Oint...G.) 1 appl TOPICAL BID [facility]; Protocol Last Admin: 09/04/25 08:19 Dose: 1 appl Documented By: CHARLIE Ondansetron HCl (Ondansetron Hcl 4 Mg/2 Ml Vial) 4 mg IVPUSH Q8H PRN PRN Reason: Nausea and Vomiting Last Admin: 09/02/25 16:04 Dose: 4 mg Documented By: SUSANNE Senna (Sennosides 8.6 Mg Tablet) 8.6 mg PO BEDTIME PRN PRN Reason: Constipation Sodium Chloride (0.9 % Sodium Chloride Flush 3 Ml Syringe) [facility] Last Admin: 09/04/25 08:19 Dose: 3 ml Documented By: CHARLIE Labs 09/01/25 06:17 09/01/25 06:17 Labs: Laboratory Results - last 24 hr 09/03/25 09/03/25 09/03/25 11:37 16:04 19:28 POC Glucose 234 H 203 H 239 H 09/04/25 07:49 POC Glucose 184 H Microbiology Microbiology Results: Microbiology 08/28/25 11:55 Blood Culture - Final Blood - Venous No growth after 5 days. 08/28/25 11:55 Blood Culture - Final Blood - Venous No growth after 5 days. 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 Chronic bilateral lower extremity nonhealing ulcers (due to uncontrolled DM) Concern for osteomyelitis. MRI 09/01: Nonspecific mild diffuse patchy muscle edema in right lower leg; limited study due to motion, no definite evidence of osteomyelitis. Wound care following (see wound care note for details). Venous duplex negative for DVT. Seen by ID: Continue PO doxycycline, as no osteomyelitis identified. Seen by general surgery: No surgical intervention recommended. Uncontrolled type 2 diabetes mellitus (A1C 11.6) Goal: Improved glycemic control. Continue insulin glargine (Lantus), sliding scale insulin, and ADA diet. Hypertension Continue amlodipine (Norvasc) and losartan. CKD stage 3 Renal function at baseline. 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 Warfarin was discontinued at that time due to hemorrhagic risk; patient was on clopidogrel (Plavix) and ASA. No clear neurology or cardiology follow-up since then. Seen by cardiology here: Started on apixaban (Eliquis) 5 mg BID, clopidogrel (Plavix) stopped. HFrEF Echo: EF 29%, bioprosthetic mitral valve functioning normally. No current exacerbation. Continue baseline dose of furosemide (Lasix). COPD No current exacerbation. History of coronary artery disease Clopidogrel (Plavix) stopped as apixaban (Eliquis) has been started. Deconditioning Seen by PT; short-term rehab recommended. Cognitive impairment, likely undiagnosed dementia Poor understanding of clinical circumstances, unable to make sound medical decisions. Health care proxy invoked; psychiatry consult requested to affirm. DVT prophylaxis Subcutaneous heparin discontinued now that apixaban (Eliquis) started. Social/Disposition Attempted to contact niece (Katlin), awaiting call back. Full code. Quality Stroke Does the patient have a stroke diagnosis?: No VTE Prior VTE?: No VTE Risk Level:: Medical - moderate - high VTE Device Contraindication: Treatment Not Indicated VTE Drug Contraindication: N/A - Med Ordered
--- NOTE | 2025-09-04 09:45 | HO.WOUND ---
Wound Consult: Follow up 85yr old?[place] [facility] [place]- See progress notes and H&P for detailed history.? Wound follow up placed for Bilateral Lateral Lower Legs and groin.? Patient agreeable to assessment and photo documentation.? Improved from previous assessment, only open area to right posterior, large areas of thickened dry skin, areas flake off easily. continue ammonium lactate lotion to dry thickened areas. Left foot Left lateral lower leg Left medial lower leg Right lateral lower leg Right posterior lower leg Bilateral Lower Lateral Leg Etiology: Venous wound??Present on Admission - only open area remains to right posterior Measurements:various sizes difficult to measure due to difficulty assessing actual wound bed vs thickened skin and drainage Wound Bed: pink moist wound bed - large skin flakes peel off easily revealing intact skin beneath Drainage / Odor: dried drainage serous - no odor Edges: ?irregular Ryann wound: No Induration, Fluctuance or Warmth noted Pain: denies Goals of Treatment: ? Elevate, Ammonium lactate and xeroform to right posterior to soften thickened tissue Recommendations: 1. Turn and Reposition every 2 hours and as needed for patient comfort.? Use pillows or wedges to support off loading positions. 2. Off Load all bony prominences with use of pillows and heel boots if needed.? Apply Preventative foams where needed. ? 3. Monitor for incontinence and moisture control, use barrier creams when needed for prevention and treatment. 4. Provide adequate and supplemental nutrition.? 5. Order low air loss mattress. 6. When applicable maintain blood glucose levels per Providers order. Bilateral Lower Lateral Leg - Elevate lower legs off of surface of bed with use of pillows.? Cleanse with NS, Pat dry.? Apply Ammonium lactate lotion to both legs, apply layer of Miconazole cream and to open areas apply xeroform secure with ABD pad, gauze wrap and tape.? Change Daily. Re-consult wound care Nurse for wound deterioration or wound changes.
[2025-09-04 11:51] LABS: Glucose, Whole Blood 317 mg/dL (60-115)
--- NOTE | 2025-09-04 13:11 | P.CNPS_ITS ---
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 Psychiatric consult request by the attending Dr Rodriguez to access for capacity. This provider meets with patient in assigned room #344: patient observed in hospital bed eating lunch. Food observed all over the tray and had coughed prior to the assessment. Patient cannot tell his , do not know where he is, and do not aware of situation and what brought him here and why he is here. Provider asked his in different way, he just says 04 . Not redirect give any answer. Patient keeps asking what do you want or why do you ask that question in return. He says I burn but not sure what he tries to say. When asked who lives with him at home and who is Katlin (per record, Katlin is his niece). Patient states I have to think about . Patient is A+O to self- not to , or situation, or current time M/D/Y. Patient does not know where he is and what he is here for. Not able to obtain any information regarding PMH or current medical condition. I do not think he can make any inform decision regarding treatment here at the hospital. He has no capacity to understand to make inform decision for his treatment.Therefore, I agree with the attending Dr Rodriguez to invoked HCP. Past Psychiatric History: Not able to obtain d/t current mental status. No information obtained from patient . Personal & Social History: Not able to obtain d/t current mental status. No information obtained from patient . Review of Systems Review of Systems Yes Unobtainable due to mental status [facility] Medical History (Updated 09/04/25 @ 20:56 by Cindy Duke NP) Lower extremity edema Type 2 diabetes mellitus without complications Paroxysmal A-fib Congestive heart failure CKD (chronic kidney disease) Type 2 diabetes mellitus Coronary artery disease Surgical History Hx of CABG Family History: Not able to obtain d/t current mental status. No information obtained from patient . Social History: Not able to obtain d/t current mental status. No information obtained from patient . Substance History: Not able to obtain d/t current mental status. No information obtained from patient . Trauma History: Not able to obtain d/t current mental status. No information obtained from patient . Diagnostics Vital Signs (24Hr): Vital Signs - 24 hr 09/03/25 15:41 09/03/25 20:00 09/04/25 03:01 Temperature 97.7 F 97.2 F 97.0 F Pulse Rate 65 67 75 Respiratory Rate 18 18 18 Blood Pressure 134/83 165/77 H Pulse Oximetry 96 95 95 Oxygen Delivery Method Room Air Room Air Room Air 09/04/25 07:39 Temperature 97.6 F Pulse Rate 62 Respiratory Rate 18 Blood Pressure 156/83 H Pulse Oximetry 93 Oxygen Delivery Method Room Air BMI result Body Mass Index 33.5 Labs 09/01/25 06:17 09/01/25 06:17 Labs: Laboratory Results - last 48 hr 09/02/25 09/02/25 09/03/25 16:06 20:00 07:02 POC Glucose 198 H 279 H 203 H 09/03/25 09/03/25 09/03/25 11:37 16:04 19:28 POC Glucose 234 H 203 H 239 H 09/04/25 09/04/25 07:49 11:45 POC Glucose 184 H 317 H Imaging Radiology Impressions: ITS Impressions Foot X-Ray 08/28/25 12:24 IMPRESSION: 1. No definite radiographic evidence of osteomyelitis in either foot. 2. Diffuse mild soft tissue swelling bilaterally. 3. 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 Electronically signed by: Jerod He MD 08/28/2025 01:38 PM [facility] Chest X-Ray 08/28/25 12:30 IMPRESSION: Chronic interstitial lung disease with likely superimposed interstitial lung edema and left-sided small volume pleural effusion. Superimposed the acute inflammatory versus infectious process cannot be excluded. Electronically signed by: Jovanny Horton MD 08/28/2025 01:15 PM EST RP Tibia/Fibula X-Ray 08/28/25 12:30 IMPRESSION: Right tibia and fibula: 1. Subtle hazy density along the lateral cortex of the mid fibular diaphysis, is an equivocal finding, could represent subtle periosteal reaction. If there is clinical concern for osteomyelitis, recommend MRI without and with contrast. 2. Medial dome subchondral seen could reflect degenerative changes, osteochondral lesion. Left tibia and fibula: 1. No radiographic evidence of acute osseous findings 2. There is clinical concern for radiographically occult osteomyelitis, MRI without and with contrast can be obtained. Electronically signed by: Lee Aviles MD 08/28/2025 01:24 PM EST RP Foot MRI 09/01/25 11:51 IMPRESSION: This study is mild to moderately degraded by motion artifacts. No definite evidence of osteomyelitis was detected. There is deep and superficial soft tissue edema, more pronounced in the plantar midfoot. Electronically signed by: Nabor Lerner MD 09/01/2025 01:41 PM EST RP Tibia/Fibula MRI 09/01/25 12:10 IMPRESSION: Nonspecific mild diffuse patchy muscle edema is evident in the right lower leg. The study is of limited diagnostic value due to motion. No definite sign of osteomyelitis. Electronically signed by: Nabor Lerner MD 09/01/2025 01:31 PM EST RP Mental Status Exam Mental Status Exam Narrative: Patient is A+O to self- not to , or situation, or current time M/D/Y. Patient does not know where he is and what he is here for. Wearing hospital attire, in bed, eating lunch. No information given/obtained from patient. Anxious but pleasant and cooperative, no aggressive behavior. NO SI/SIB/HI/AVH addressed. Do not appear to be psychotic, not observed self dialogued. Speech is WNL when answering questions. Seem to have [place]. Medications Medications Current Medications Acetaminophen (Acetaminophen 325 Mg Tablet) 650 mg PO Q6H PRN PRN Reason: Pain, Mild 1-3,fever,headache Last Admin: 09/01/25 22:03 Dose: 650 mg Amlodipine Besylate (Amlodipine Besylate 10 Mg Tablet) 10 mg PO DAILY [facility]; Protocol Last Admin: 09/04/25 08:16 Dose: 10 mg Apixaban (Apixaban 5 Mg Tablet) 5 mg PO BID [facility] Last Admin: 09/04/25 08:16 Dose: 5 mg Calcium Carbonate (Calcium Carbonate 750 Mg Tab.Chew) 750 mg PO Q4H PRN PRN Reason: Heartburn Cyanocobalamin (Cyanocobalamin (Vitamin B-12) 1,000 Mcg Tablet) 1,000 mcg PO DAILY [facility] Last Admin: 09/04/25 08:16 Dose: 1,000 mcg Dextrose (Dextrose 50 % 25 Gm/50 Ml Syringe) 25 gm IVPUSH Q15M PRN; Protocol PRN Reason: per Hypoglycemia Standing Ord. Doxycycline Monohydrate (Doxycycline Monohydrate 100 Mg Capsule) 100 mg PO Q12H [facility] Last Admin: 09/04/25 08:16 Dose: 100 mg Furosemide (Furosemide 40 Mg Tablet) 40 mg PO DAILY [facility]; Protocol Last Admin: 09/04/25 08:16 Dose: 40 mg Glucose (Glucose Gel 15 Gm Gel..Gram.) 15 gm PO Q15M PRN; Protocol PRN Reason: per Hypoglycemia Standing Ord. Insulin Glargine (Insulin Glargine,Hum.Rec.Anlog 100 Unit/Ml 10 Ml Vial) 10 unit SUBCUT DAILY [facility] Last Admin: 09/04/25 08:16 Dose: 10 unit Insulin Human Lispro (Insulin Lispro 100 Unit/Ml 3 Ml Vial) 0 unit SUBCUT QIDACHS [facility]; Protocol Last Admin: 09/04/25 12:28 Dose: 8 unit Lactic Acid (Ammonium Lactate 12 % Cream 140 Gm Tube) 1 appl TOPICAL BID [facility]; Protocol Last Admin: 09/04/25 08:19 Dose: 1 appl Losartan Potassium (Losartan Potassium 50 Mg Tablet) 100 mg PO DAILY [facility]; Protocol Last Admin: 09/04/25 08:16 Dose: 100 mg Magnesium Hydroxide (Milk Of Magnesia 30 Ml Oral.Susp) 30 ml PO DAILY PRN PRN Reason: Constipation Melatonin (Melatonin 3 Mg Tablet) 6 mg PO BEDTIME PRN PRN Reason: Insomnia Miconazole Nitrate (Miconazole Nitrate 2% Oint 57 Gm Oint...G.) 1 appl TOPICAL BID [facility]; Protocol Last Admin: 09/04/25 08:19 Dose: 1 appl Ondansetron HCl (Ondansetron Hcl 4 Mg/2 Ml Vial) 4 mg IVPUSH Q8H PRN PRN Reason: Nausea and Vomiting Last Admin: 09/02/25 16:04 Dose: 4 mg Senna (Sennosides 8.6 Mg Tablet) 8.6 mg PO BEDTIME PRN PRN Reason: Constipation Sodium Chloride (0.9 % Sodium Chloride Flush 3 Ml Syringe) 3 ml IVFLUSH QSHIFT [facility] Last Admin: 09/04/25 08:19 Dose: 3 ml Allergies Allergies Allergy/AdvReac Type Severity Reaction Status Date / Time hydrochlorothiazide Allergy Unknown Unknown Verified 08/28/25 11:16 Assessment & Plan Assessment & Plan (1) Encounter for assessment of decision-making capacity: Status: Acute Code(s): Z00.8 - Encounter for other general examination Plan Patient is A+O to self- not to , or situation, or current time M/D/Y. Patient does not know where he is and what he is here for. Not able to obtain any information regarding PMH or current medical condition. I do not think he can make any inform decision regarding treatment here at the hospital. He has no capacity to understand or to make informed decision for his treatment. Therefore, I agree with the attending Dr Rodriguez to invoked HCP. Total time managing care of this patient today ____ minutes. Patient educated on: other (Not able to provide education. Patient has no capacity to understand. ) Informed Consent: does not understand
--- NOTE | 2025-09-04 15:15 | MHC.CM.PN ---
pt [place] at 5:15 via [facility] arranged amb to [facility] ept to [facility] pts hcp was christopher michel [phone]
[2025-09-04 15:16] VITALS: BP 147/73; PULSE 76; RESP 18; TEMP 36.3; O2SAT 95
--- NOTE | 2025-09-04 15:30 | PM.DS ---
DS: Providers Provider Date of Service: 09/04/25 Date of admission: 08/28/25 14:42 Date of discharge: 09/04/25 Primary care physician: SYED Rubi Consults: 08/28/25 14:39 Consult to Infectious Diseases Routine Consulting Provider: [facility] [place] Infectious Disease Center Reason for consultation: possible osteo, LE 08/28/25 15:02 Consult to Wound Care Routine Consulting Provider: [facility] [place] Wound Care Management Reason for consultation: BLE wounds 08/29/25 08:01 Consult to General Surgery Routine Consulting Provider: [facility] [place] General Surgeons Reason for consultation: Diabetic foot ulcer, ?OM 08/30/25 10:31 Consult to Cardiology Routine Consulting Provider: [facility] [place] Cardiovascular Specialists Reason for consultation: Aflutter, unknown chronicity 09/04/25 01:07 Consult to Wound Care Routine Consulting Provider: [facility] [place] Wound Care Management Reason for consultation: BLE cellulitis & redness to groin 09/04/25 09:05 Consult to Psychiatry Routine Consulting Provider: [facility] [place] Psych Covering Reason for consultation: assess capacity DS: Diagnosis Discharge Diagnosis (1) Open wound of left lower extremity: Status: Acute DS: Summary Hospital Course Hospital Course: admission hpi Chief Complaint: leg infection 85-year-old male with a history of lower extremity wounds presents to the ER with worsening appearance of wounds. He reports foul-smelling discharge and reports that he is the 1 that does his wound care but does go to the [facility] what is a week. He denied any fever, chills, nausea, vomiting, diarrhea. No fever leukocytosis noted. Bilateral foot x-ray done. Right foot showing no fracture dislocation or bone lesion. Left foot showed the same. Right tibiofibula x-ray showed equivocal findings of possible osteoarthritis. Left tibia and fibula x-rays showing no definitive signs for osteomyelitis but recommend MRI. Patient is started on IV vancomycin. He was also noted to have uncontrolled blood sugars. He will be admitted for cellulitis and uncontrolled diabetes mellitus. hospital course: 85-year-old male with multiple comorbidities , including uncontrolled diabetes admitted for evaluation and management of worsening chronic bilateral lower extremity wounds, with concern for possible osteomyelitis. Hospital Course 1. Chronic Bilateral Lower Extremity Ulcers (due to uncontrolled diabetes) Presented with worsening nonhealing ulcers. MRI (09/01): Mild diffuse patchy muscle edema in right lower leg; no definite evidence of osteomyelitis (study limited by motion). Wound care team involved; see wound care notes for detailed management. Venous duplex: Negative for DVT. Infectious Disease: No evidence of osteomyelitis; continue oral doxycycline. General Surgery: No surgical intervention indicated. 2. Uncontrolled Type 2 Diabetes Mellitus (A1C 11.6) Insulin glargine (Lantus) 10 units, increasing to 15, blood sugars 200s to 300s. and sliding scale insulin continued. ADA diet Emphasis on improved glycemic control. 3. Hypertension Blood pressure controlled on amlodipine and losartan. 4. Chronic Kidney Disease Stage 3 Renal function remained at baseline throughout hospitalization. 5. Paroxysmal Atrial Fibrillation/Flutter. 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 Previously on clopidogrel and aspirin. Cardiology consulted: Apixaban 5 mg BID started; clopidogrel discontinued. 6. Heart Failure with Reduced Ejection Fraction (HFrEF) Echocardiogram: EF 29%, bioprosthetic mitral valve functioning normally. No evidence of acute decompensation. Continue baseline furosemide. 7. COPD No acute exacerbation during admission. 8. Coronary Artery Disease, s/p CABG Clopidogrel discontinued with initiation of apixaban. 9. Deconditioning Physical therapy evaluation completed. Short-term rehabilitation recommended. 10. Cognitive Impairment, Likely Undiagnosed Dementia Demonstrated poor understanding of clinical circumstances and impaired decision-making capacity. Health care proxy invoked. Psychiatry consulted for capacity assessment and affirmed that he lack capacity for medical decision making Time Attestation Discharge Coordination Time (in mins): 45 Quality: Safe Use of Opioids Does Pt have an Active Cancer Diagnosis on the Problem List?: No Quality: Stroke Does the patient have a stroke diagnosis?: No Physical Exam Exam: Exam: General: Alert, oriented to self, no to place or date Resp: CTA bilateral CVS: S1,S2,RRR GI: +BS, NT, no distention Skin: leg wounds wrapped, see pic from 09/03 Neuro: motor grossly intact Psych: appropriate affect Vital Signs: Vital Signs: Last Vital Signs Temp 97.3 F 09/04/25 15:16 Pulse 76 09/04/25 15:16 Resp 18 09/04/25 15:16 BP 147/73 H 09/04/25 15:16 Pulse Ox 95 09/04/25 15:16 O2 Del Method Room Air 09/04/25 15:16 O2 Flow Rate 4 08/30/25 15:32 BMI result Body Mass Index 33.5 DS: Data Data Completed and Pending Labs on day of discharge: Laboratory Results - last 24 hr 09/03/25 09/03/25 09/04/25 16:04 19:28 07:49 POC Glucose 203 H 239 H 184 H 09/04/25 11:45 POC Glucose 317 H Discharge Plan Discharge Anticipated Discharge Date/Time: 09/04/25 15:34 Patient Disposition: Xfer SNF Discharge Diagnosis: Non healing leg ulcers and underlying cellulitis, uncontrolled diabetes Referrals: nancy cortez [Other] - 1 Week [facility] [place] Wound Care [Outside] - 1 Week Merari Ocampo MD [Physician, Wound Care] - 1 Week Forrest Marin PA [Primary Care Provider, Internal Medicine] - 1 Week Discharge Medications: New insulin lispro [Admelog U-100 Insulin lispro] 100 unit/mL Solution See Protocol subcut QIDACHS MDD 45 Qty: 10 0RF Protocol: Insulin Correction Scale Less than or equal to 110 ---- Give (units): 0 111 to 150 Give (units): 0 151 to 200 Give (units): 2 201 to 250 Give (units): 4 251 to 300 Give (units): 6 301 to 350 Give (units): 8 Greater than 350 Give (units): 10 Call MD if Blood Glucose > : 350 Rx Instructions: BG <111 0 units, 111-150 - 0 units, 151-200 2 units, 201-250 4 units, 251-300 6 units, 301-350 8 units, >350 10 units Eliquis 5 mg Tablet 5 mg PO BID Qty: 180 0RF dextrose [Glutose-15] 40 % Gel 15 g PO Q15M PRN (Reason: Per Hypoglycemia Standing Ord.) Qty: 112.5 0RF Protocol: Glucose Gel Hypoglycemia Standing Order Protocol Text: For patients able to take PO (patient cooperative and able to swallow). Give Glucose Gel 15 gm PO for Blood Glucose (BG) < 70. Repeat BG every 15 min until BG > 70 x 3, if BG still < 70 and/or patient symptomatic repeat glucose gel or rapid acting carbohydrate. Notify MD if BG does not improve with treatment. Rx Instructions: for blood sugar less than 70s or symptoms of hypoglycemia melatonin 3 mg Tablet 6 mg PO BEDTIME PRN (Reason: Insomnia) Qty: 30 0RF Critic-Aid Clear AF(miconazol) 2 % Ointment 1 appl topical BID Qty: 684 0RF Protocol: Apply to: Apply to: bilateral lower extremities Rx Instructions: apply to legs ammonium lactate 12 % Cream 1 appl topical BID Qty: 140 0RF Protocol: Apply to: Apply to: bilateral lower extremities Rx Instructions: apply to legs doxycycline monohydrate 100 mg Capsule 100 mg PO Q12H Qty: 16 0RF Continued sennosides [senna] 8.6 mg Tablet 8.6 mg PO BEDTIME PRN (Reason: Constipation) amlodipine 10 mg Tablet 10 mg PO DAILY losartan 100 mg Tablet 100 mg PO DAILY cyanocobalamin (vitamin B-12) 1,000 mcg Tablet 1,000 mcg PO DAILY furosemide 40 mg Tablet 40 mg PO DAILY Qty: 30 0RF Changed insulin glargine-yfgn 100 unit/mL (3 mL) Insulin Pen 15 unit SUBCUT DAILY Qty: 15 0RF Discontinued clopidogrel 75 mg Tablet 75 mg PO DAILY Discharge Orders: Discharge Order (Routine); Ordered 09/04/25 Ordered By: Joel Rodriguez Diet: Diabetic diet Activity on Discharge: As tolerated Stand Alone Forms: Patient Portal Discharge page Print Language: Israeli Activity Restrictions/Additional Instructions: Topical wound care recommendations: Bilateral Lower Lateral Leg - Elevate lower legs off of surface of bed with use of pillows.? Cleanse with NS, Pat dry.? Apply Ammonium lactate lotion to both legs, apply layer of Miconazole cream and to open areas apply xeroform secure with ABD pad, gauze wrap and tape.? Change Daily. Recommend follow up out patient Wound Clinic at [address] [place] [phone] and to call for an appointment at time of discharge. [phone].? Care Plan Goals: recovery from leg wounds Health Concerns: leg wound chronic non healing diabetic leg ulcers Plan of Treatment: see above and take Doxycyline as recommed Assessment: see above
[2025-09-04 16:09] LABS: Glucose, Whole Blood 241 mg/dL (60-115)
[2025-09-04 17:16] VITALS: BP 131/82; PULSE 73; RESP 20; TEMP 37; O2SAT 94
== END 2025-09-04 17:32 | disposition skilled nursing facility (03) | DRG 638 ==
LOC: HO.ED 11:25 → HO.EDOVER 14:47 → HO.S3 19:34 → HO.IMC 08-30 14:52 → HO.S3 09-02 13:06
PROVIDERS: Physician Assistant Medical; Student in an Organized Health Care Education/Training Program; Admitting Provider Nurse Practitioner Acute Care; Emergency Provider Emergency Medicine Emergency Medical Services; PCP Physician Assistant; Referring Provider Nurse Practitioner Psychiatric/Mental Health; Visit Provider Internal Medicine
DX: E11.622 Type 2 diabetes mellitus with other skin ulcer (principal); F05 Delirium due to known physiological condition; I13.0 Hypertensive heart and chronic kidney disease with heart failure and stage 1 through stage 4 chronic kidney disease, or unspecified chronic kidney disease; I48.92 Unspecified atrial flutter; I50.32 Chronic diastolic (congestive) heart failure; L97.829 Non-pressure chronic ulcer of other part of left lower leg with unspecified severity; L97.819 Non-pressure chronic ulcer of other part of right lower leg with unspecified severity; N18.30 Chronic kidney disease, stage 3 unspecified; Z95.1 Presence of aortocoronary bypass graft; J44.9 Chronic obstructive pulmonary disease, unspecified; I87.8 Other specified disorders of veins; R53.81 Other malaise; Z95.2 Presence of prosthetic heart valve; F03.90 Unspecified dementia, unspecified severity, without behavioral disturbance, psychotic disturbance, mood disturbance, and anxiety; I27.20 Pulmonary hypertension, unspecified; I48.0 Paroxysmal atrial fibrillation; I25.10 Atherosclerotic heart disease of native coronary artery without angina pectoris; E11.22 Type 2 diabetes mellitus with diabetic chronic kidney disease; Z79.4 Long term (current) use of insulin; Z79.899 Other long term (current) drug therapy
CPT/HCPCS: 36415; 71046; 73590; 73630; 73718; 74176; 80048; 80053; 80202; 81001; 82565; 82947; 83036; 83605; 83735; 83880; 84484; 85025; 85027; 85610; 85652; 86140; 87040; 93005; 93306; 93970; 97162; 97530; 99285; J0131; J1644; J2405; J2543; J3360; J3373; J3374; Q9957

== ENCOUNTER → 2025-08-28 11:18 | Outpatient (BNV) | payer OTHER, SELFPAY | PROVIDERS: Emergency Provider Emergency Medicine Emergency Medical Services; PCP Physician Assistant; Visit Provider Radiology Diagnostic Radiology | DX: J84.9 Interstitial pulmonary disease, unspecified (principal); E11.628 Type 2 diabetes mellitus with other skin complications; M19.071 Primary osteoarthritis, right ankle and foot; M19.072 Primary osteoarthritis, left ankle and foot | CPT/HCPCS: 71046; 73590; 73630 ==

== ENCOUNTER 2025-08-28 14:42 | Outpatient (BNV) | payer OTHER, SELFPAY | END 2025-08-29 20:10 | PROVIDERS: Admitting Provider Nurse Practitioner Acute Care; Emergency Provider Emergency Medicine Emergency Medical Services; PCP Physician Assistant; Visit Provider Radiology Diagnostic Radiology | DX: Z03.89 Encounter for observation for other suspected diseases and conditions ruled out (principal) | CPT/HCPCS: 93970 ==

== ENCOUNTER 2025-08-28 14:42 | Outpatient (BNV) | payer OTHER, SELFPAY | END 2025-08-30 12:00 | PROVIDERS: Admitting Provider Nurse Practitioner Acute Care; Emergency Provider Emergency Medicine Emergency Medical Services; PCP Physician Assistant; Visit Provider Internal Medicine | DX: I35.0 Nonrheumatic aortic (valve) stenosis (principal); I27.20 Pulmonary hypertension, unspecified; Z95.2 Presence of prosthetic heart valve; I35.8 Other nonrheumatic aortic valve disorders | CPT/HCPCS: 93306 ==

== ENCOUNTER 2025-08-28 14:42 | Outpatient (BNV) | payer OTHER, SELFPAY | END 2025-09-02 16:44 | PROVIDERS: Admitting Provider Nurse Practitioner Acute Care; Emergency Provider Emergency Medicine Emergency Medical Services; PCP Physician Assistant; Visit Provider Student in an Organized Health Care Education/Training Program | DX: K57.30 Diverticulosis of large intestine without perforation or abscess without bleeding (principal); J90 Pleural effusion, not elsewhere classified | CPT/HCPCS: 74176 ==

== ENCOUNTER 2025-08-28 14:42 | Outpatient (BNV) | payer OTHER, SELFPAY | END 2025-08-29 | PROVIDERS: Admitting Provider Nurse Practitioner Acute Care; Emergency Provider Emergency Medicine Emergency Medical Services; PCP Physician Assistant; Visit Provider Internal Medicine | DX: R94.31 Abnormal electrocardiogram [ECG] [EKG] (principal); I48.92 Unspecified atrial flutter | CPT/HCPCS: 93010 ==

== ENCOUNTER 2025-08-28 14:42 | Outpatient (BNV) | payer OTHER, SELFPAY | END 2025-09-01 11:51 | PROVIDERS: Admitting Provider Nurse Practitioner Acute Care; Emergency Provider Emergency Medicine Emergency Medical Services; PCP Physician Assistant; Visit Provider Radiology Diagnostic Radiology | DX: L03.115 Cellulitis of right lower limb (principal) | CPT/HCPCS: 73718 ==

== ENCOUNTER → 2025-08-28 14:42 | Outpatient (BNV) | payer OTHER, SELFPAY | PROVIDERS: Admitting Provider Nurse Practitioner Acute Care; Emergency Provider Emergency Medicine Emergency Medical Services; PCP Physician Assistant; Visit Provider Internal Medicine | DX: S81.802A Unspecified open wound, left lower leg, initial encounter (principal) | CPT/HCPCS: 99222; 99499 ==

== ENCOUNTER → 2025-08-28 14:42 | Outpatient (BNV) | payer OTHER, SELFPAY | PROVIDERS: Admitting Provider Nurse Practitioner Acute Care; Emergency Provider Emergency Medicine Emergency Medical Services; PCP Physician Assistant; Visit Provider Student in an Organized Health Care Education/Training Program | DX: S81.802A Unspecified open wound, left lower leg, initial encounter (principal) | CPT/HCPCS: 99232; 99233; 99499 ==

== ENCOUNTER → 2025-08-28 14:42 | Outpatient (BNV) | payer OTHER, SELFPAY | PROVIDERS: Admitting Provider Nurse Practitioner Acute Care; Emergency Provider Emergency Medicine Emergency Medical Services; PCP Physician Assistant; Visit Provider Nurse Practitioner Psychiatric/Mental Health | DX: R41.89 Other symptoms and signs involving cognitive functions and awareness (principal); Z13.30 Encounter for screening examination for mental health and behavioral disorders, unspecified | CPT/HCPCS: 99222 ==

== ENCOUNTER → 2025-08-28 14:42 | Outpatient (BNV) | payer OTHER, SELFPAY | PROVIDERS: Admitting Provider Nurse Practitioner Acute Care; Emergency Provider Emergency Medicine Emergency Medical Services; PCP Physician Assistant; Visit Provider Surgery | DX: R60.0 Localized edema (principal) | CPT/HCPCS: 99222; 99232 ==

== ENCOUNTER → 2025-08-28 14:42 | Outpatient (BNV) | payer OTHER, SELFPAY | PROVIDERS: Admitting Provider Nurse Practitioner Acute Care; Emergency Provider Emergency Medicine Emergency Medical Services; PCP Physician Assistant; Visit Provider Internal Medicine | DX: I48.92 Unspecified atrial flutter (principal); I42.9 Cardiomyopathy, unspecified; I35.0 Nonrheumatic aortic (valve) stenosis | CPT/HCPCS: 99223 ==